=== PATIENT | male | born 1945 | race Caucasian/White ===

== ENCOUNTER 2017-06-01 14:46 | Inpatient (IN) ==
--- NOTE | 2017-05-31 22:09 | Discharge Summary ---
<ShruthiRehana morenoBreana L - Last Filed: 05/31/17 22:07> Date of Encounter: 05/31/17 - Discharge Diagnosis (1) Painful orthopaedic hardware Priority: Primary Status: Acute (2) Status post revision of total hip Priority: Primary Status: Acute (3) Hx of CABG Priority: Secondary Status: Chronic (4) COPD (chronic obstructive pulmonary disease) Priority: Secondary Status: Chronic Qualifiers: COPD type: unspecified COPD Qualified Code(s): J44.9 - Chronic obstructive pulmonary disease, unspecified (5) Anticoagulant long-term use Priority: Secondary Status: Chronic Comments: On Coumadin - Plan to bridge with Lovenox. Weight: 166lbs (6) Atrial fibrillation Priority: Secondary Status: Chronic Qualifiers: Atrial fibrillation type: chronic Qualified Code(s): I48.2 - Chronic atrial fibrillation (7) Diabetes Priority: Secondary Status: Chronic Qualifiers: Diabetes mellitus type: type 2 Diabetes mellitus complication status: without complication Diabetes mellitus watermaster insulin use: unspecified snf insulin use status Qualified Code(s): E11.9 - Type 2 diabetes mellitus without complications (8) CAD (coronary artery disease) Priority: Secondary Status: Chronic Qualifiers: Coronary Disease-Associated Artery/Lesion type: unspecified vessel or lesion type [place] vs. transplanted heart: unspecified whether [place] or transplanted heart Associated angina: without angina Qualified Code(s): I25.10 - Atherosclerotic heart disease of [place] coronary artery without angina pectoris - Discharge Medications Home Medications: Furosemide [Lasix] 20 mg PO Q48H 04/13/15 [History] GlipiZIDE [Glucotrol] 7.5 mg PO BID 04/13/15 [History] Atorvastatin [Lipitor] 10 mg PO HS 10/16/15 [History] Amiodarone [Cordarone] 200 mg PO DAILY 02/08/16 [History] Lactobacillus [Culturelle] 1 each PO DAILY 02/08/16 [History] Enoxaparin [Lovenox *PHARMACY WT BASED*] 60 mg SQ Q12HR #8 syringe 05/31/17 [Rx] Albuterol Sulfate [Albuterol Inhaler] 2 puff IH QID PRN 06/01/17 [History] Brimonidine Tartrate [Alphagan P] 1 drop BOTH EYES TID 06/01/17 [History] Cholecalciferol (Vitamin D3) [Vitamin D] 2,000 unit PO DAILY 06/01/17 [History] Enoxaparin [Lovenox] 120 mg SQ DAILY 06/01/17 [History] Furosemide [Lasix] 40 mg PO Q48H 06/01/17 [History] Ipratropium/Albuterol Neb [Duoneb] 3 ml IH QID 06/01/17 [History] Levothyroxine [Synthroid] 50 mcg PO QAM 06/01/17 [History] Losartan Potassium [Cozaar] 100 mg PO DAILY 06/01/17 [History] Metformin HCl [Glucophage] 1,000 mg PO BID 06/01/17 [History] Metoprolol Succinate 25 mg PO DAILY 06/01/17 [History] Oxycodone HCl 20 mg PO Q12H 06/01/17 [History] Pregabalin [Lyrica] 200 mg PO BID 06/01/17 [History] Sertraline [Zoloft] 100 mg PO QPM 06/01/17 [History] Warfarin [Coumadin] 2 mg PO TH 06/01/17 [History] Warfarin [Coumadin] 4 mg PO SUMOTUWEFRSA 06/01/17 [History] amLODIPine [Norvasc] 5 mg PO DAILY 06/01/17 [History] Allergies/Adverse Reactions: 3 Allergy/AdvReac Type Severity Reaction Status Date / Time azithromycin Allergy See Verified 06/01/17 16:50 Comments ceftriaxone Allergy See Verified 06/01/17 16:50 Comments morphine Allergy See Verified 06/01/17 16:50 Comments sulfamethoxazole AdvReac See Verified 06/01/17 16:50 [From Bactrim] Comments trimethoprim [From Bactrim] AdvReac See Verified 06/01/17 16:50 Comments [facility]: [facility] - Patient Status Disposition: Home, Self-Care Condition: Good - Discharge Instructions Follow Up With: [facility] [Primary Care Provider] - - Hospital Course Hospital course: Mr. Huddleston is a 72 year old male - Time Spent with Patient Total time spent providing and/or coordinating discharge services: <Andrea Cannon - Last Filed: 06/02/17 06:31> Date of Encounter: 06/02/17 Time of Encounter: 06:30 - Discharge Diagnosis (1) Atrial fibrillation with slow ventricular response Priority: Secondary Status: Chronic (2) Hx of CABG Priority: Secondary Status: Chronic (3) COPD (chronic obstructive pulmonary disease) Priority: Secondary Status: Chronic Qualifiers: COPD type: unspecified COPD Qualified Code(s): J44.9 - Chronic obstructive pulmonary disease, unspecified (4) Renal failure Priority: Secondary Status: Chronic Qualifiers: Renal failure chronicity: acute on chronic Acute renal failure type: unspecified Chronic kidney disease stage: stage 2 (mild) Qualified Code(s): N17.9 - Acute kidney failure, unspecified; N18.2 - Chronic kidney disease, stage 2 (mild); N18.2 - Chronic kidney disease, stage 2 (mild) (5) Anticoagulant long-term use Priority: Secondary Status: Chronic (6) Diabetes Priority: Secondary Status: Chronic Qualifiers: Diabetes mellitus type: type 2 Diabetes mellitus complication status: without complication Diabetes mellitus watermaster insulin use: unspecified snf insulin use status Qualified Code(s): E11.9 - Type 2 diabetes mellitus without complications (7) CAD (coronary artery disease) Priority: Secondary Status: Chronic Qualifiers: Coronary Disease-Associated Artery/Lesion type: unspecified vessel or lesion type [place] vs. transplanted heart: unspecified whether [place] or transplanted heart Associated angina: without angina Qualified Code(s): I25.10 - Atherosclerotic heart disease of [place] coronary artery without angina pectoris (8) Painful orthopaedic hardware Priority: Primary Status: Chronic Labs on day of discharge: Labs from last 24 hours 06/01/17 15:17 POC Glucose 93 H [facility] care [facility]: [facility] - Patient Status Functional capacity at discharge: uses cane/walker Overall status at discharge: patient is progressing back to baseline - Hospital Course Hospital course: Mr. Huddleston is a 72 year old male Status post removal of hardware left hip. The patient had an uneventful postoperative course. They received antibiotics and physical therapy and were discharged in stable condition. There will follow -up in the office in 2 weeks. - Time Spent with Patient Total time spent providing and/or coordinating discharge services:
--- NOTE | 2017-06-01 10:28 | Physician Discharge Referral ---
ExtendedCare Referral Info Transfer To: [place] Provider in Charge: Provider in Charge after Transfer: PCP Institutional Level of Care: Skilled - Diagnosis (1) Painful orthopaedic hardware Priority: Primary Status: Acute (2) Status post revision of total hip Priority: Primary Status: Acute (3) Hx of CABG Priority: Secondary Status: Chronic (4) COPD (chronic obstructive pulmonary disease) Priority: Secondary Status: Chronic (5) Anticoagulant long-term use Priority: Secondary Status: Chronic (6) Atrial fibrillation Priority: Secondary Status: Chronic (7) Diabetes Priority: Secondary Status: Chronic (8) CAD (coronary artery disease) Priority: Secondary Status: Chronic Expected Duration of Placement: < 30 days Prognosis: Good Aware of Diagnosis: Patient Aware of Prognosis: Patient - Transfer Medications Prescriptions: Enoxaparin [Lovenox *PHARMACY WT BASED*] 60 mg SQ Q12HR #8 syringe LORazepam [Ativan] 0.5 mg PO TID PRN #6 tablet PRN Reason: Anxiety Home Medications: Clopidogrel [Plavix] 75 mg PO HS 04/13/15 [History] Furosemide [Lasix] 20 mg PO AD 04/13/15 [History] GlipiZIDE [Glucotrol] 5 mg PO BID 04/13/15 [History] Nitroglycerin 0.4 mg SL AD PRN 04/13/15 [History] OxyCODONE ER (12 HR) [OxyCONTIN] 20 mg PO Q12HR PRN 04/13/15 [History] Atorvastatin [Lipitor] 10 mg PO HS 10/16/15 [History] Latanoprost [Xalatan] 1 drop BOTH EYES QPM 10/16/15 [History] Amiodarone [Cordarone] 100 mg PO DAILY 02/08/16 [History] Amlodipine Besylate 10 mg PO DAILY 02/08/16 [History] Guaifenesin [Suzanne-Tussin] 200 mg PO Q4H PRN 02/08/16 [History] Lactobacillus [Culturelle] 1 each PO DAILY 02/08/16 [History] Potassium Chloride [Klor-Con Sprinkle] 10 meq PO DAILY 02/08/16 [History] Terazosin HCl 2 mg PO HS 02/08/16 [History] Enoxaparin [Lovenox *PHARMACY WT BASED*] 60 mg SQ Q12HR #8 syringe 05/31/17 [Rx] LORazepam [Ativan] 0.5 mg PO TID PRN #6 tablet 05/31/17 [Rx] Allergies/Adverse Reactions: 3 Allergy/AdvReac Type Severity Reaction Status Date / Time No Known Allergies Allergy Verified 03/01/16 21:41 - Respiratory Orders None Smoking Cessation: Smoking cessation has been advised. For more information, call the [place] Tobacco Quit Line at 5-674-RUNF-NOW. - Ancillary Orders May use pressure relief devices daily prn - Mobility Orders Chair, Ambulate - Rehabiliation Orders Rehab Potential: Good Rehab Orders: ROM Exercises, Evaluation for Physical Therapy, Evaluation for Occupational Therapy - Treatments Skin tear care topically daily PRN per policy List/Other: Opsite placed. Keep dressing intact until first follow up appointment. If > 50% saturated,notify offfice, remove dressing and place appropriate dressing back in place. Dressing is water resistant, not water-proof. OK to shower, but do not get dressing wet. Kike in place, to be removed at POD#14-16. PT/OT. WBAT to affected extremity. Follow Total Hip Precautions x 6 weeks. Stay in brace at night only. Plan to discontinue brace after first post- operative appointment. ICE and elevate extremity frequently throughout the day. Encourage ambulation exercises. Incentive Spirometer 10x/hour x 1 week. Bridge back to Coumadin with Lovenox until PT/INR therapeutic - Diet Orders Regular CERTIFICATION: I certify that the transfer of the above named patient to an Extended Care Facility is necessary for the continuing treatment of the diagnosis listed. The above information is true and accurate reflection of patient's current condition. Confidential - Redisclosure prohibited without a patient's written consent.
--- NOTE | 2017-06-01 14:55 | History & Physical Report ---
Date of Encounter: 06/01/17 Time of Encounter: 14:54 24 Hour HP Update - Instructions Instructions: If the History and Physical is less than 30 days old and was completed prior to A.M. admission and or procedure and has NOT been updated on calendar day of procedure please complete this update prior to performing procedure. - Update Patient reports changes in Medical Condition: No Changes in Medication: No Preop tests/diagnostics Reviewed: Yes Surgery Remains Indicated: Yes Consent for Planned Operative Procedure(s) Verified: Yes - Pre-Operative Checklist Preoperative Checklist Indicated: No Prophylactic Antibiotic Ordered: Yes Is VTE Prophylaxis Indicated?: Yes
[2017-06-01] MEDS ORDERED: Vancomycin 1,250 MG in D5% in Water 250 ML IVPB ONE (15:06)
[2017-06-01] MEDS ORDERED: Lidocaine -MPF 1% 2 ML VIAL ID ONE (15:06)
[2017-06-01] MEDS ORDERED: Albuterol 2.5 MG/3 ML NEBULIZER IH ONE (15:06)
[2017-06-01] MEDS ORDERED: Ethanol\\Acetic Acid\\Na Ace\\Ben 1,000 ML IRRIG.SOLN IR ONE (15:07)
[2017-06-01] MEDS ORDERED: Ringers Solution, Lactated 1,000 ML IVC SCH ×2 (15:15→18:27)
--- NOTE | 2017-06-01 15:22 | Anesthesia Evaluation PreOp ---
Date of Encounter: 06/01/17 Time of Encounter: 15:20 - Past History Planned Operation: Left Total Hip Arthropasty, Removal of part of plate Cardiac History: [place] (2011), CHF, HTN, Hyperlipidemia, Cardiac Surgery (CABG x 2 2011), Pacemaker/ICD (Pacemaker 02/13, Interogated 06/01/2017), Other (Carotid Stenosis, Hx DVT) Pulmonary History: Former smoker MEDICAL LEAD History: Denies Any Significant HX Other Medical History: Diabetes Type II Anesthesia History: No Prior Anesthetic Complications, Past Anesthesia (Back sx , Left THR, Left Fem. Art. Bypass,) Alcohol Use: none Drug use: none Medications and Allergies Clopidogrel [Plavix] 75 mg PO HS 04/13/15 [History] Furosemide [Lasix] 20 mg PO AD 04/13/15 [History] GlipiZIDE [Glucotrol] 5 mg PO BID 04/13/15 [History] Nitroglycerin 0.4 mg SL AD PRN 04/13/15 [History] OxyCODONE ER (12 HR) [OxyCONTIN] 20 mg PO Q12HR PRN 04/13/15 [History] Atorvastatin [Lipitor] 10 mg PO HS 10/16/15 [History] Latanoprost [Xalatan] 1 drop BOTH EYES QPM 10/16/15 [History] Amiodarone [Cordarone] 100 mg PO DAILY 02/08/16 [History] Amlodipine Besylate 10 mg PO DAILY 02/08/16 [History] Guaifenesin [Suzanne-Tussin] 200 mg PO Q4H PRN 02/08/16 [History] Lactobacillus [Culturelle] 1 each PO DAILY 02/08/16 [History] Potassium Chloride [Klor-Con Sprinkle] 10 meq PO DAILY 02/08/16 [History] Terazosin HCl 2 mg PO HS 02/08/16 [History] Enoxaparin [Lovenox *PHARMACY WT BASED*] 60 mg SQ Q12HR #8 syringe 05/31/17 [Rx] LORazepam [Ativan] 0.5 mg PO TID PRN #6 tablet 05/31/17 [Rx] 3 Allergy/AdvReac Type Severity Reaction Status Date / Time No Known Allergies Allergy Verified 03/01/16 21:41 - Meds/Allergy Pre-op Review Medications Reviewed: Yes Allergies Reviewed: Yes Beta Blockers on Current Med List: No Anesthesia Results - Labs Laboratory Tests 03/01/16 05/26/17 05/26/17 22:20 14:05 14:05 WBC 8.4 Hgb 12.8 L Hct 39.5 Plt Count 181 INR 1.7 Sodium Potassium Chloride Carbon Dioxide BUN Creatinine 1.10 05/26/17 14:05 WBC Hgb Hct Plt Count INR Sodium 136 Potassium 3.8 Chloride 101 Carbon Dioxide 26 BUN 19 Creatinine 12/15/16 Echo Normal EF - 61% pHTN LVH - Imaging EKG: image reviewed (Atrial Paced) Anesthesia Exam O2 Sat Height 1.71 m Height 1.71 m Weight 77.111 kg Weight 77.111 kg O2 Sat by Pulse Oximetry 96 O2 Sat by Pulse Oximetry 96 Vital Signs Temp Pulse Resp BP Pulse Ox 97.7 F 65 18 151/83 96 06/01/17 15:33 06/01/17 15:33 06/01/17 15:33 06/01/17 15:33 06/01/17 15:33 Height: 5'7'' Weight: 170# NPO (# of Hours): > 8 hrs Pain Scale: 0 Pain Scale Used: Numeric (1 - 10) - HEENT Pupil (Motor): Pupils equal, EOMI Mallampati: II Teeth: Edentulous Oral Opening: Greater than 3 - MEDICAL LEAD LOC: Oriented MEDICAL LEAD Motor: Normal RUE, Normal LUE, Normal RLE, Normal LLE, Normal Face MEDICAL LEAD Sensory: Normal: RUE, LUE, RLE, LLE, Face - Cardiac Rhythm: Regular (Atrial Paced) Murmur: None JVD: No Carotid Bruit: No - Pulmonary Breath Sounds: bilateral Clear Respiratory Effort: Symmetrical Anesthesia Assess/Plan ASA Score: 4 Modified [place] Scale for Level of Consciousness: Cooperative, oriented, and tranquil Anesthetic Plan: General, Regional (Left Facia Iliaca Block) Autologous Blood: Yes Monitoring Plan: Standard Monitors Recovery Plan: PACU
[2017-06-01] MEDS ORDERED: *HR* FentaNYL (PF) 100 MCG/2 ML VIAL ONE (15:39)
[2017-06-01] MEDS ORDERED: Bupivacaine/Clonidine Syringe 1 EACH SYRINGE ONE (15:39)
[2017-06-01] MEDS ORDERED: Acetaminophen IV 1,000 MG/100 ML INFUS..BTL ONE (15:39)
[2017-06-01] MEDS ORDERED: *HR* Midazolam HCl 2 MG/2 ML VIAL ONE (15:41)
[2017-06-01] MEDS ORDERED: *HR* Propofol 200 MG/20 ML VIAL IVP ONE (15:41)
[2017-06-01] MEDS ORDERED: Lidocaine -MPF 2% 2 ML VIAL ONE (15:41)
[2017-06-01] MEDS ORDERED: Ketamine *HR* 500 MG/10 ML MDV ONE (15:42)
--- NOTE | 2017-06-01 16:17 | Anesthesia Procedures ---
Date of Encounter: 06/01/17 Time of Encounter: 16:16 Procedures: Anesthesia - Nerve Block Procedure Date: 06/01/17 Time: 16:16 Allergies/Adv Reactions: nka Surgical Procedure: left hip revision Checklist: Correct Patient Identifier, Correct procedure, History checked Correct side: Left Blood Thinner: No Monitor Applied: EKG, BP, Pulse Oximetry Supplemental Oxygen via Nasal Cannula (L/min): 2 Sedation: Versed (mg): 2 Sedation: Fentanyl (mcg): 100 Indication: Post Op Analgesia Pre-op Neuro Deficits: No Block Type: Other (fascia iliaca) Catheter placed: No Sterile Technique: Yes Ultrasound used: Yes Anatomy identified: Yes Visual spread of Local: Yes Neuro Stimulation: No Blood on Needle Aspiration: No Smooth Injection of Local: Yes Pain with Injection of Local: No Prep: Chlorhexadine Needle: 22 x 50 mm Stimuplex Local: 0.25% Bupivicaine w/Clonidine 20 mcg/cc Volume (cc): 60 Number of Attempts: 1 Complications: None/effective block Vitals: Vital Signs/O2 Sat/Glucose, Most Recent Temp Pulse Resp BP Pulse Ox 97.7 F 60 18 138/73 97 06/01/17 15:33 06/01/17 16:00 06/01/17 16:00 06/01/17 16:00 06/01/17 16:00 Blood Glucose* 93
[2017-06-01] MEDS ORDERED: *HR* Succinylcholine 200 MG/10 ML VIAL IVP ONE (16:23)
[2017-06-01] MEDS ORDERED: Lidocaine -MPF 4% 5 ML AMPUL ONE (16:24)
[2017-06-01] MEDS ORDERED: *HR* Magnesium Sulfate 1 GM/2 ML VIAL ONE (16:41)
[2017-06-01] MEDS ORDERED: Dexamethasone 4 MG/ML VIAL ONE (16:44)
[2017-06-01] MEDS ORDERED: Ondansetron 4 MG/2 ML VIAL ONE (16:44)
[2017-06-01] MEDS ORDERED: Ketorolac 30 MG/ML VIAL ONE (17:07)
[2017-06-01] MEDS ORDERED: Ondansetron 4 MG/2 ML VIAL IVP PRN ×2 (17:09→18:27)
[2017-06-01] MEDS ORDERED: *HR* HYDROmorphone (PF) 1 MG/ML SYRINGE IVP PRN ×2 (17:09→18:27)
--- NOTE | 2017-06-01 17:23 | Orthopedic Operative Note ---
Date of procedure: 06/01/17 Pre-op diagnosis: Painful hardware left hip, possible aseptic loosening femoral component Post-op diagnosis: same (No loosening of femoral component) Procedure: Procedure: Left hip removal of hardware, hip arthrotomy exploration. Estimated blood loss: 200 cc No new hardware Procedural Notes: Patient had a proud proximal portion of a lateral femoral plate and concerns based on his history and physical of loosening of the femoral stem. Patient had the proximal portion of the plate cut hip was dislocated femur was well fixed. No abnormal wear of the acetabular socket. Stable after reduction. Operative procedure: The patient was brought to the operating room and placed on the operating room table. After general anesthesia was administered the patient was placed in the lateral decubitus position with the operative leg up. All pressure points were padded appropriately and the head was stabilized in the neutral position. The operative extremity was prepped and draped in the sterile surgical fashion patient received IV antibiotic prior to skin incision. A standard posterior approach is made to the operative hip, the incision was made through the skin and subcutaneous tissue hemostasis was obtained with Bovie cautery. It incorporated the distal portion of his incision which was used for his open reduction internal fixation. Using careful sharp dissection the plate was easily identified. Q2 cables were removed as well as 2 screws. The proximal portion of the plate was cut just at the level of one of the proximal screw holes. This helped remove the inciting portion of the plate was causing lateral sided hip pain. Cultures were obtained. Attention was then turned to exposure of the hip. A posterior approach was performed, the external rotators were identified and released off the greater trochanter. Cultures were obtained. The hip was dislocated. The femoral head was removed. Proximal dissection was performed around the femoral stem osteotomes were used to fit the proximal portion. An extraction device was used and was unsuccessful in removing the hip. The hip was well fixed. Examination of the acetabulum revealed no abnormal wear of the acetabular component. The patient's femoral head was really applied impacted in place had good fixation hip was reduced, The hip had excellent stability with forward flexion to 90 degrees adduction of 30 degrees and internal rotation of 60 degrees. The hip had no shuck. The hips after 2 minutes with a Betadine saline solution. It was irrigated out with 2 L of pulse irrigation. The PA close the hip. Fascia was closed with a running #2 PDS suture. The deep tissue was irrigated and closed deep with #1 PDS suture superficially with 0 PDS suture and skin was closed with Dermabond and skin anahi. The patient was placed in a sterile dressing and abduction pillow. The patient was extubated and transferred to the recovery room in stable condition. Anesthesia: GETA Surgeon: Andrea Cannon Condition: stable Disposition: PACU
[2017-06-01] MEDS ORDERED: *HR* Enoxaparin 30 MG/0.3 ML SYRINGE SQ SCH (18:00)
--- NOTE | 2017-06-01 18:16 | Anesthesia Evaluation Post Op ---
Date of Encounter: 06/01/17 Time of Encounter: 18:15 - Vital Signs Vital Signs: Selected Entries 06/01/17 17:53 06/01/17 18:13 Temperature 97.1 F L Pulse Rate 60 Respiratory Rate 14 Blood Pressure 131/73 O2 Sat by Pulse Oximetry 97 - Lungs Lungs: Clear Ascult./Percussion - Airway Airway: Non-obstructed - Cardiovascular Regular Rate - Mental Status Mental Status: Alert & Oriented, Answers Appropriately - Pain Pain Scale: 0 Pain Scale used: Numeric (1 - 10) - Nausea Vomiting Nausea Vomiting: Not Present - Hydration Hydration: Ice chips, Has not voided - Discharge PostOp Status: Transfer Patient to floor
[2017-06-01] MEDS ORDERED: Insulin LISPRO 300 UNITS/3 ML VIAL SQ SCH ×2 (18:27→21:00)
[2017-06-01] MEDS ORDERED: MOM Conc 10 ML UD.LIQ PO PRN (18:27)
[2017-06-01] MEDS ORDERED: *HR* Dextrose 50 % in Water (Syg) 50 ML SYRINGE IVP PRN (18:27)
[2017-06-01] MEDS ORDERED: D5% in Water 1,000 ML IVC PRN (18:27)
[2017-06-01] MEDS ORDERED: Naloxone 0.4 MG/ML INJ IVP PRN (18:27)
[2017-06-01] MEDS ORDERED: *HR* OxyCODONE Immed Rel 5 MG TABLET PO PRN ×2 (18:27)
[2017-06-01] MEDS ORDERED: Dextrose Gel 15 GM PO PRN ×2 (18:27)
[2017-06-01] MEDS ORDERED: Temazepam 15 MG CAPSULE PO PRN (18:27)
[2017-06-01] MEDS ORDERED: Sennosides 8.6 MG TABLET PO PRN (18:27)
[2017-06-01] MEDS ORDERED: *HR* Dextrose 50 % in Water (Syg) 50 ML SYRINGE ONE (18:31)
[2017-06-01 19:06] LABS: Hematocrit 33.4 % (37.5-50.1)
[2017-06-01] MEDS: Ascorbic Acid 500 MG TABLET PO SCH (20:39)
[2017-06-02] MEDS ORDERED: ceFAZolin 2,000 MG in D5% in Water 100 ML IVPB SCH
[2017-06-02] MEDS ORDERED: Vancomycin 1,250 MG in D5% in Water 250 ML IVPB SCH (00:01)
[2017-06-02] MEDS ORDERED: *HR* Enoxaparin 30 MG/0.3 ML SYRINGE SQ SCH (06:00)
--- NOTE | 2017-06-02 06:32 | Orthopedics Progress Note ---
Date of Encounter: 06/02/17 Time of Encounter: 06:31 - Assessment and Plan (1) Atrial fibrillation with slow ventricular response Current Visit: No Status: Chronic (2) Hx of CABG Current Visit: No Status: Chronic (3) COPD (chronic obstructive pulmonary disease) Current Visit: No Status: Chronic Qualifiers: COPD type: unspecified COPD Qualified Code(s): J44.9 - Chronic obstructive pulmonary disease, unspecified (4) Renal failure Current Visit: No Status: Chronic Qualifiers: Renal failure chronicity: acute on chronic Acute renal failure type: unspecified Chronic kidney disease stage: stage 2 (mild) Qualified Code(s): N17.9 - Acute kidney failure, unspecified; N18.2 - Chronic kidney disease, stage 2 (mild); N18.2 - Chronic kidney disease, stage 2 (mild) (5) Anticoagulant long-term use Current Visit: No Status: Chronic (6) Diabetes Current Visit: No Status: Chronic Qualifiers: Diabetes mellitus type: type 2 Diabetes mellitus complication status: without complication Diabetes mellitus locker attendant insulin use: unspecified custodial insulin use status Qualified Code(s): E11.9 - Type 2 diabetes mellitus without complications (7) CAD (coronary artery disease) Current Visit: No Status: Chronic Qualifiers: Coronary Disease-Associated Artery/Lesion type: unspecified vessel or lesion type [place] vs. transplanted heart: unspecified whether [place] or transplanted heart Associated angina: without angina Qualified Code(s): I25.10 - Atherosclerotic heart disease of [place] coronary artery without angina pectoris (8) Painful orthopaedic hardware Current Visit: No Status: Chronic Subjective Interval history: Patient was seen this morning doing well without complaints. Afebrile vital signs stable. Operative extremity: Neurovascularly intact Dressing clean dry and intact Calves nontender Assessment and plan: Continue with postoperative care Hematocrit 33 discharged today Objective Vital signs: Vital Signs Temp Pulse Resp BP Pulse Ox 06/02/17 04:23 98.3 F 60 15 158/82 95 06/02/17 00:13 97.6 F 62 15 99/55 96 06/01/17 21:54 96.0 F L 60 10 97/57 97 06/01/17 20:19 97.5 F L 60 16 100/63 94 06/01/17 19:53 95.8 F L 06/01/17 19:37 60 12 118/67 95 06/01/17 19:01 65 18 110/57 92 06/01/17 18:38 97.4 F L 62 18 113/59 98 06/01/17 18:23 97.8 F 59 16 131/70 96 06/01/17 18:13 60 14 131/73 97 06/01/17 18:03 60 16 127/69 94 06/01/17 17:53 97.1 F L 60 16 116/64 96 06/01/17 16:00 60 18 138/73 97 06/01/17 15:33 97.7 F 65 18 151/83 96 Intake and Output 06/01/17 06/01/17 06/02/17 15:59 23:59 07:59 Output Total 200 / 200 425 / 425 Balance -200 / -200 -425 / -425 Output: Urine 0 / 0 425 / 425 Estimated Blood Loss 200 / 200 Other: Weight 77.111 kg Blood Glucose* 93 141 - Labs CBC & BMP: 06/01/17 18:33 Labs: Abnormal lab results Hgb 11.0 g/dL (12.9-16.9) L D 06/01/17 18:33 Hct 33.4 % (37.5-50.1) L 06/01/17 18:33 POC Glucose 141 (58-89) H 06/01/17 18:50 - VTE Documentation of Mechanical Device: Venous foot pump, device Consult Discharge Plan - Plan [facility]errals: [facility] [Primary Care Provider] -
[2017-06-02 06:39] LABS: BUN/Creatinine Ratio 18 (6-26); Blood Urea Nitrogen 23 mg/dL (8-26); Calcium 8.1 mg/dL (8.6-10.8); Carbon Dioxide 22 mEq/L (19-29); Chloride 101 mEq/L (98-109); Glucose 427 mg/dL (70-99); Osmolality,Calculated 292 (280-300); Potassium 4.8 mEq/L (3.5-4.5); Sodium 130 mEq/L (136-145); eGFR For African Americans > 60 (> 60); eGFR For Non-African Americans 55 (> 60)
[2017-06-02 06:57] LABS: Hematocrit 27.9 % (37.5-50.1)
[2017-06-02 07:04] LABS: Hemoglobin 9.3 g/dL (12.9-16.9)
[2017-06-02 07:11] VITALS: BP 127/65
[2017-06-02] MEDS: Ascorbic Acid 500 MG TABLET PO SCH (08:12)
[2017-06-02] MEDS ORDERED: Multivit/Ca/Min/Fe/FA 1 TAB TABLET PO SCH (09:00)
--- NOTE | 2017-06-02 11:36 | Event Note ---
Date of Encounter: 06/02/17 Time of Encounter: 11:34 Left hip removal of hardware, hip arthrotomy exploration. 06/01/17 GRAM stain negative PCR - POD#.1 Comorbidities: Painful hardware, DMii, HTN, CAD, Pacemaker, Anticoagulated with Coumadin, Chronic pain Labs: 05/26 - H/H 9.11/24 - Type and Cross today Patient discharged during PCR. Pain control: Chronic Pain - Takes Oxycontin 20mg BID, plan to continue this post-op Participating in PT per notes. All questions and concerns addressed. Educated on use of incentive spirometer, ambulation, and hydration. Patient educated on post-operative restrictions and care by Nurse navigator Addressed: Coumadin Bridge* Lovenox Weight based RX printed - Repeat PT/INR D/C plan: home today -
[2017-06-02 12:00] LABS: INR 1.2; Prothrombin Time 12.6 Seconds (9.4-12.1)
--- NOTE | 2017-06-02 15:28 | Physician Discharge Referral ---
Home Health/Hosp Referral Info Transfer to: Home Health Attending Provider: Provider in Charge Post Discharge: PCP - Diagnosis (1) Painful orthopaedic hardware Priority: Primary Status: Chronic (2) Status post revision of total hip Priority: Primary Status: Acute (3) Hx of CABG Priority: Secondary Status: Chronic (4) COPD (chronic obstructive pulmonary disease) Priority: Secondary Status: Chronic (5) Anticoagulant long-term use Priority: Secondary Status: Chronic (6) Atrial fibrillation Priority: Secondary Status: Chronic (7) Diabetes Priority: Secondary Status: Chronic (8) CAD (coronary artery disease) Priority: Secondary Status: Chronic - Respiratory Orders None Smoking Cessation: Smoking cessation has been advised. For more information, call the [employer] Tobacco Quit Line at 6-672-GRWZ-NOW. - Diet/Nutrition Diet/Nutrition Orders: Regular - Activity Activity Orders: Up ad corbin, Ambulate - Services Needed Following services are medically necessary services: Nursing, Home Health Aide, Physical Therapy, Occupational Therapy Home Care Orders: Opsite dressing, leave intact until first post-operative visit. If dressing becomes >50% saturated, contact office, remove dressing and place appropriate dressing in its place. Do not allow for dressing to get wet. Kike in place, plan to remove at post-operative day #14-16. Total Joint Precautions x 6 weeks Apply cold therapy wrap 3-6x/day for 20 minutes at a time. Encourage ambulation throughout the day Use Incentive spirometer 10x/hour. Elevate affected extremity above heart as tolerated. Other Treatments: Labs: PT/INR 06/03/17 - coumadin bridging until PT/INR therapeutic - Transfer Medications Home Medications: Furosemide [Lasix] 20 mg PO Q48H 04/13/15 [History] GlipiZIDE [Glucotrol] 7.5 mg PO BID 04/13/15 [History] Atorvastatin [Lipitor] 10 mg PO HS 10/16/15 [History] Amiodarone [Cordarone] 200 mg PO DAILY 02/08/16 [History] Lactobacillus [Culturelle] 1 each PO DAILY 02/08/16 [History] Enoxaparin [Lovenox *PHARMACY WT BASED*] 60 mg SQ Q12HR #8 syringe 05/31/17 [Rx] Albuterol Sulfate [Albuterol Inhaler] 2 puff IH QID PRN 06/01/17 [History] Brimonidine Tartrate [Alphagan P] 1 drop BOTH EYES TID 06/01/17 [History] Cholecalciferol (Vitamin D3) [Vitamin D] 2,000 unit PO DAILY 06/01/17 [History] Enoxaparin [Lovenox] 120 mg SQ DAILY 06/01/17 [History] Furosemide [Lasix] 40 mg PO Q48H 06/01/17 [History] Ipratropium/Albuterol Neb [Duoneb] 3 ml IH QID 06/01/17 [History] Levothyroxine [Synthroid] 50 mcg PO QAM 06/01/17 [History] Losartan Potassium [Cozaar] 100 mg PO DAILY 06/01/17 [History] Metformin HCl [Glucophage] 1,000 mg PO BID 06/01/17 [History] Metoprolol Succinate 25 mg PO DAILY 06/01/17 [History] Oxycodone HCl 20 mg PO Q12H 06/01/17 [History] Pregabalin [Lyrica] 200 mg PO BID 06/01/17 [History] Sertraline [Zoloft] 100 mg PO QPM 06/01/17 [History] Warfarin [Coumadin] 2 mg PO TH 06/01/17 [History] Warfarin [Coumadin] 4 mg PO SUMOTUWEFRSA 06/01/17 [History] amLODIPine [Norvasc] 5 mg PO DAILY 06/01/17 [History] Allergies/Adverse Reactions: 3 Allergy/AdvReac Type Severity Reaction Status Date / Time azithromycin Allergy See Verified 06/01/17 16:50 Comments ceftriaxone Allergy See Verified 06/01/17 16:50 Comments morphine Allergy See Verified 06/01/17 16:50 Comments sulfamethoxazole AdvReac See Verified 06/01/17 16:50 [From Bactrim] Comments trimethoprim [From Bactrim] AdvReac See Verified 06/01/17 16:50 Comments Certification: Further, I certify that my clinical findings support that this patient is homebound (i.e. absences from home require considerable and taxing effort and are for medical reasons or [facility] services or infrequently or short duration when for other reasons) because: Homebound Reason: Post-surgery restriction and or conditions limit ability to leave home Attestation: My signature below is to certify that this patient is under my care and that I, or nurse practitioner, or a physician's assistant curator working with me, has a face-to -face encounter with this patient.
--- NOTE | 2017-06-02 17:30 | Electrocardiograph Report ---
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
== END 2017-06-02 13:10 | disposition home or self-care (01) | DRG 481 ==
LOC: SAMDAY 14:46 → 3NENU 18:27
PROVIDERS: ADMIT Orthopaedic Surgery; ATTEND Orthopaedic Surgery

== ENCOUNTER 2017-06-03 12:55 | Inpatient (IN) ==
[~2017-06-03 12:55] MED LIST: Aminoglycoside Consult 1 EACH MC ONE
--- NOTE | 2017-06-03 13:18 | Emergency Department Note ---
Disposition Clinical Impression: Weakness, Near syncope, Dislocation of internal left hip prosthesis, initial encounter, Hypoxia Disposition: Admitted As Inpatient Condition: Undetermined [facility]errals: [facility]Primary Care Provider[facility] - Forms: ED Satisfaction Letter Time of Disposition: 15:31 General Adult HPI - General Chief complaint: ED Fall Stated complaint: fall Time Seen by Provider: 06/03/17 12:57 Source: patient, family, EMS Mode of arrival: EMS Limitations: no limitations Nursing Notes Reviewed: Yes Vital Signs Reviewed: Yes - History of Present Illness HPI Narrative: 72-year-old male with recent history of hip replacement and removal of partial aspect of ride in left hip and femur. The patient has an extensive history of surgeries to the left lower extremity associated with this. The patient states that he also has a history of PE and DVT. The patient is on warfarin therapy. The patient arrives into the emergency department complaining of generalized weakness and a near syncopal episode about one day ago while the patient was stating up in the kitchen at his house. The patient states he slid down While holding onto a chair. The patient had no loss of consciousness. Patient denies any other complaints at this time. The patient was noted to be mildly hypoxic with an O2 sat of 86% on room air which is unusual for him. Onset (ago): day(s) (1) Location: left, lower extremity Radiation: non-radiation Pain Severity: moderate, severe Pain Scale: 9 Quality: stabbing, aching Consistency: constant Improves with: nothing Worsens with: nothing Associated symptoms: Reports: shortness of breath Treatments Prior to Arrival: none - Related Data Home Medications Medication Instructions Recorded Confirmed Furosemide [Lasix] 20 mg PO Q48H 04/13/15 06/01/17 GlipiZIDE [Glucotrol] 7.5 mg PO BID 04/13/15 06/01/17 Atorvastatin [Lipitor] 10 mg PO HS 10/16/15 06/01/17 Amiodarone [Cordarone] 200 mg PO DAILY 02/08/16 06/01/17 Lactobacillus [Culturelle] 1 each PO DAILY 02/08/16 06/01/17 Albuterol Sulfate [Albuterol 2 puff IH QID PRN 06/01/17 06/01/17 Inhaler] Brimonidine Tartrate [Alphagan P] 1 drop BOTH EYES TID 06/01/17 06/01/17 Cholecalciferol (Vitamin D3) 2,000 unit PO DAILY 06/01/17 06/01/17 [Vitamin D] Enoxaparin [Lovenox] 120 mg SQ DAILY 06/01/17 06/01/17 Furosemide [Lasix] 40 mg PO Q48H 06/01/17 06/01/17 Ipratropium/Albuterol Neb [Duoneb] 3 ml IH QID 06/01/17 06/01/17 Levothyroxine [Synthroid] 50 mcg PO QAM 06/01/17 06/01/17 Losartan Potassium [Cozaar] 100 mg PO DAILY 06/01/17 06/01/17 Metformin HCl [Glucophage] 1,000 mg PO BID 06/01/17 06/01/17 Metoprolol Succinate 25 mg PO DAILY 06/01/17 06/01/17 Oxycodone HCl 20 mg PO Q12H 06/01/17 06/01/17 Pregabalin [Lyrica] 200 mg PO BID 06/01/17 06/01/17 Sertraline [Zoloft] 100 mg PO QPM 06/01/17 06/01/17 Warfarin [Coumadin] 2 mg PO TH 06/01/17 06/01/17 Warfarin [Coumadin] 4 mg PO SUMOTUWEFRSA 06/01/17 06/01/17 amLODIPine [Norvasc] 5 mg PO DAILY 06/01/17 06/01/17 Previous Rx's Medication Instructions Recorded Enoxaparin [Lovenox *PHARMACY WT 60 mg SQ Q12HR #8 syringe 05/31/17 BASED*] Allergies Allergy/AdvReac Type Severity Reaction Status Date / Time azithromycin Allergy See Verified 06/01/17 16:50 Comments ceftriaxone Allergy See Verified 06/01/17 16:50 Comments morphine Allergy See Verified 06/01/17 16:50 Comments sulfamethoxazole AdvReac See Verified 06/01/17 16:50 [From Bactrim] Comments trimethoprim [From Bactrim] AdvReac See Verified 06/01/17 16:50 Comments All systems ED: reviewed and negative except as stated. Constitutional: Reports: weakness. Denies: fever, chills Eyes: Denies: eye pain ENT ED: Denies: ear pain, throat pain Cardiovascular: Denies: chest pain, dyspnea on exertion Respiratory: Reports: dyspnea. Denies: cough, wheezes, sputum production Gastrointestinal: Denies: abdominal pain, nausea, vomiting Genitourinary: Denies: urgency, dysuria Musculoskeletal: Reports: arthralgia, myalgia. Denies: back pain, neck pain Integumentary: Reports: other (Wound to left lower extremity). Denies: rash Neurological: Denies: headache, weakness, numbness, paresthesias Past Medical History - Past Medical History Attestation: Yes The following information was validated with the patient. Source: patient, old records reviewed Medical history: Reports: atrial fibrillation, CHF, COPD, coronary artery disease, CVA, DVT, diabetes, GERD, hypertension, myocardial infarction, syncope , other Surgical history: Reports: appendectomy, carotid endarterectomy, coronary bypass (CABG), hip replacement, LE stent(s), vascular surgery, pacemaker Psychiatric history: Reports: anxiety, PTSD - Social History Smoking Status: Former smoker Smokeless Tobacco Status: No Alcohol use: Reports: none Drug use: Reports: none Physical Exam - General Limitations: no limitations General appearance: alert, in no apparent distress - Head Head exam: atraumatic, normocephalic, normal inspection - Eye Eye exam: Present: normal appearance, PERRL, EOMI - ENT ENT exam: normal exam, normal oropharynx, mucous membranes moist - Neck Neck exam: Present: normal inspection, full ROM, trachea midline - Chest Chest inspection: Present: normal inspection, symmetric chest wall rise - Respiratory Respiratory exam: Present: normal lung sounds bilaterally - Cardiovascular Cardiovascular exam: Present: regular rate, normal rhythm, normal heart sounds - Abdominal Exam Abdominal exam: Present: soft, Non-Tender. Absent: tenderness, distention, guarding, rebound, rigidity - Extremities Exam Extremities exam: Present: full ROM (Limited by pain), tenderness, other (The patient has a left hip wound that is intact from surgery 3 days ago.) Course - Reevaluation(s) Reevaluation #1: He should mildly hypoxic on room air at 86%. The patient does have a dislocation of his prosthetic hip on the left. We do not currently feel comfortable sedating this patient at this time due to the patient's hypoxia without any etiology known. Chest x-ray is clear. We will perform a CTA of the patient's chest with concern for PE. Patient made aware and agrees to plan. We spoke with Dr. Cannon as well as Dr. Cespedes in orthopedic surgery to make them aware. Time: 14:02 Reevaluation #2: Hypertension acutely became more somnolent. He was given one 0.4 mg dose of Narcan which immediately pulled patient out of his somnolence. The patient denies taking any medications here but I question because he acutely changed. The patient is alert and oriented at this time and easily arousable. Time: 15:51 Vital Signs Temperature 97.7 F 06/03/17 12:57 Pulse Rate 61 06/03/17 12:57 Respiratory Rate 8 06/03/17 12:57 Blood Pressure 100/73 06/03/17 12:57 O2 Sat by Pulse Oximetry 92 06/03/17 12:57 Temperature 97.7 F 06/03/17 12:57 Pulse Rate 61 06/03/17 15:07 Respiratory Rate 18 06/03/17 15:07 Blood Pressure 80/47 06/03/17 15:07 O2 Sat by Pulse Oximetry 92 06/03/17 15:07 Oxygen Delivery Oxygen Delivery Nasal Cannula Medical Decision Making - [facility] Narrative Medical decision making narrative: Patient noted to have a dislocation of prosthetic hip on the left. Given the patient's hypoxia I was concerned about performing a reduction here in the emergency department and spoke with Dr. Cannon in orthopedics surgery who agreed to take the patient to the OR tomorrow. He requested admission to the hospitalist service at this time. Patient's CT scan demonstrates no pulmonary embolus. We will admit to the hospitalist, accepted by Dr. Garza. - Lab Data Lab results reviewed: Yes I reviewed the patient's lab results. Result diagrams: 06/03/17 13:16 06/03/17 13:16 Lab Results 06/03/17 06/03/17 06/03/17 Range/Units 13:16 13:16 13:16 WBC 12.0 H (4.3-11.1) K/mcL RBC 2.78 L (4.19-5.50) M/mcL Hgb 8.3 L (12.9-16.9) g/dL Hct 25.8 L (37.5-50.1) % MCV 92.8 (83.0-100.0) fL MCH 29.9 (28.0-33.3) pg MCHC 32.2 (31.6-35.5) g/dL RDW 16.4 H (11.5-14.5) % Plt Count 111 L (140-400) K/mcL MPV 10.1 (9.4-12.4) fL Immature Gran % 1.2 (0-4) % Seg Neutrophils % 75.3 % Lymphocytes % 10.2 % Monocytes % 11.9 % Eosinophils % 1.2 % Basophils % 0.2 % Neutrophils # 9.0 H (1.6-8.9) K/mcL Lymphocytes # 1.2 (0.6-4.6) K/mcL Monocytes # 1.4 H (0.0-1.3) K/mcL Eosinophils # 0.2 (0.0-0.6) K/mcL Basophils # 0.0 (0.0-0.2) K/mcL PT (9.4-12.1) Seconds INR APTT (26.0-36.0) Seconds ABG pH (7.32-7.45) pH Units ABG pCO2 (35-45) mmHg ABG pO2 (85-104) mmHg ABG HCO3 (21-27) mEq/L ABG Total CO2 (20-26) mEq/L ABG O2 Saturation (95-98) % ABG Base Excess (-2 to 3) mEq/L Sodium 134 L (136-145) mEq/L Potassium 3.9 (3.5-4.5) mEq/L Chloride 105 (98-109) mEq/L Carbon Dioxide 20 (19-29) mEq/L BUN 27 H (8-26) mg/dL Creatinine 1.36 H (0.72-1.25) mg/dL Est GFR ( Amer) > 60 (> 60) Est GFR (Non-Af Amer) 52 L (> 60) BUN/Creatinine Ratio 20 (6-26) Glucose 180 H (70-99) mg/dL POC Glucose (58-89) Calculated Osmolality 288 (280-300) Calcium 7.6 L (8.6-10.8) mg/dL Magnesium 1.8 (1.6-2.6) mg/dL Troponin I 0.04 H* (0-0.03) ng/mL 06/03/17 06/03/17 06/03/17 Range/Units 13:17 14:30 15:22 WBC (4.3-11.1) K/mcL RBC (4.19-5.50) M/mcL Hgb (12.9-16.9) g/dL Hct (37.5-50.1) % MCV (83.0-100.0) fL MCH (28.0-33.3) pg MCHC (31.6-35.5) g/dL RDW (11.5-14.5) % Plt Count (140-400) K/mcL MPV (9.4-12.4) fL Immature Gran % (0-4) % Seg Neutrophils % % Lymphocytes % % Monocytes % % Eosinophils % % Basophils % % Neutrophils # (1.6-8.9) K/mcL Lymphocytes # (0.6-4.6) K/mcL Monocytes # (0.0-1.3) K/mcL Eosinophils # (0.0-0.6) K/mcL Basophils # (0.0-0.2) K/mcL PT 13.0 H (9.4-12.1) Seconds INR 1.2 APTT 35.3 (26.0-36.0) Seconds ABG pH 7.26 L (7.32-7.45) pH Units ABG pCO2 44 (35-45) mmHg ABG pO2 73 L (85-104) mmHg ABG HCO3 20 L (21-27) mEq/L ABG Total CO2 21 (20-26) mEq/L ABG O2 Saturation 92 L (95-98) % ABG Base Excess -7 L (-2 to 3) mEq/L Sodium (136-145) mEq/L Potassium (3.5-4.5) mEq/L Chloride (98-109) mEq/L Carbon Dioxide (19-29) mEq/L BUN (8-26) mg/dL Creatinine (0.72-1.25) mg/dL Est GFR ( Amer) (> 60) Est GFR (Non-Af Amer) (> 60) BUN/Creatinine Ratio (6-26) Glucose (70-99) mg/dL POC Glucose 142 H (58-89) Calculated Osmolality (280-300) Calcium (8.6-10.8) mg/dL Magnesium (1.6-2.6) mg/dL Troponin I (0-0.03) ng/mL - Radiology Data Radiology results reviewed: Yes I reviewed the patient's radiology results. - EKG Data EKG #1 EKG attestation: Yes I reviewed and interpreted this EKG. EKG results narrative: Heart rate 63 bpm. OK interval 360 ms. Normal axis. Normal sinus rhythm. Electronic atrial pacemaker. Right bundle-branch block. EKG similar in appearance to EKG from 06/01/2017. No acute changes noted. Attestation Statement - Attestation Attestation: I examined this patient and my medical decision-making was reviewed with the Resident Physician. I agree with the documented findings, disposition and treatment plan as described except to the extent set forth below. Patient to the ED with weakness. Multiple falls. Patient had a recent revision to his left hip prosthesis. On examination she is awake and alert. Tenderness to the left hip area. Unable move his leg secondary to pain. Lungs diminished. Plan. Basic labs. Chest x-ray as he is hypoxic. We will manage his hip. Chest x-ray is clear. We will check CTA. Patient's left hip is dislocated. Has been discussed with orthopedics. Uncomfortable sedating him at this time and he is hypoxic. 40 minutes of critical care exclusive of separately billable procedures.
[2017-06-03 13:25] LABS: Basophils % 0.2 %; Eosinophils # 0.2 K/mcL (0.0-0.6); Eosinophils % 1.2 %; Hematocrit 25.8 % (37.5-50.1); Hemoglobin 8.3 g/dL (12.9-16.9); Immature Granulocytes % 1.2 % (0-4); Lymphocytes # 1.2 K/mcL (0.6-4.6); Lymphocytes % 10.2 %; Mean Corpuscular HGB Conc 32.2 g/dL (31.6-35.5); Mean Corpuscular Hemoglobin 29.9 pg (28.0-33.3); Mean Corpuscular Volume 92.8 fL (83.0-100.0); Mean Platelet Volume 10.1 fL (9.4-12.4); Monocytes # 1.4 K/mcL (0.0-1.3); Monocytes % 11.9 %; Platelet Count 111 K/mcL (140-400); Red Blood Count 2.78 M/mcL (4.19-5.50); Red Cell Distribution Width 16.4 % (11.5-14.5); Segmented Neutrophils % 75.3 %
[2017-06-03 13:29] LABS: INR 1.2
[2017-06-03 13:31] LABS: Activated Partial Thrombo Time 35.3 Seconds (26.0-36.0)
[2017-06-03 13:36] LABS: BUN/Creatinine Ratio 20 (6-26); Blood Urea Nitrogen 27 mg/dL (8-26); Calcium 7.6 mg/dL (8.6-10.8); Carbon Dioxide 20 mEq/L (19-29); Chloride 105 mEq/L (98-109); Glucose 180 mg/dL (70-99); Magnesium 1.8 mg/dL (1.6-2.6); Osmolality,Calculated 288 (280-300); Potassium 3.9 mEq/L (3.5-4.5); Sodium 134 mEq/L (136-145); eGFR For African Americans > 60 (> 60); eGFR For Non-African Americans 52 (> 60)
[2017-06-03 14:35] LABS: ABG Base Excess -7 mEq/L (-2 to 3); ABG HCO3 20 mEq/L (21-27); ABG Oxygen Saturation 92 % (95-98); ABG PCO2 44 mmHg (35-45); ABG PH 7.26 pH Units (7.32-7.45); ABG PO2 73 mmHg (85-104); ABG TCO2 21 mEq/L (20-26)
[2017-06-03] MEDS ORDERED: 0.9 % Sodium Chloride 500 ML IVC ONE (16:25)
--- NOTE | 2017-06-03 17:43 | Internal Med History&Physical ---
<Paolo Hurtado - Last Filed: 06/03/17 18:50> Date of Encounter: 06/03/17 Time of Encounter: 05:00 Assessment and Plan (1) Respiratory acidosis Current visit: Yes Status: Acute Respiratory acidosis secondary to decreased respiratory drive from opioid overdose PH 7.26, PCO2 44, O2 73, HCO3 20 There is an anion gap of 9 O2 sats 96% on 10 L O2 Patient's respiratory rate has been documented between 8 and 18, however on exam it hovered at about 10 (2) Respiratory failure Current visit: Yes Status: Acute Acute hypoxic respiratory failure secondary to unintentional opioid overdose ABG shows pH 7.26 PCO2 44 PO2 73 HCO3 20 Despite acidosis, patient's respiratory drive has remained low The patient was given Narcan on admission We will get another ABG to determine acid base status Qualifiers: Chronicity: acute Respiratory failure complication: hypoxia and hypercapnia Qualified Code(s): J96.01 - Acute respiratory failure with hypoxia ; J96.02 - Acute respiratory failure with hypercapnia; J96.02 - Acute respiratory failure with hypercapnia; J96.02 - Acute respiratory failure with hypercapnia (3) Accidental overdose Current visit: Yes Status: Acute Narcotic accidental overdose Patient took additional oxycodone for pain We will continue to monitor Unlikely patient had an intervention for self-harm Qualifiers: Encounter type: initial encounter Qualified Code(s): T50.901A - Poisoning by unspecified drugs, medicaments and biological substances, accidental ( unintentional), initial encounter (4) Dislocation of internal left hip prosthesis, initial encounter Current visit: Yes Status: Acute Dislocation noted on hip x-ray and pelvic x-ray Orthopedic consult Dr. Cannon has been notified and is intending open reduction tomorrow if the patient is stable We will attempt to manage pain without decreasing her respiratory drive (5) Hypotension Current visit: Yes Status: Acute Initiate fluid resuscitation Give 1 L bolus normal saline Q1 100 mL per hour normal saline Qualifiers: Hypotension type: unspecified hypotension type Qualified Code(s): I95.9 - Hypotension, unspecified (6) Weakness Current visit: Yes Status: Acute Likely secondary to recent surgery, and opioid use We will continue to monitor, consult PT OT when possible (7) CAD (coronary artery disease) Current visit: No Status: Chronic Coronary artery disease status post CABG in 2011 and previous stents Stable at this time Qualifiers: Coronary Disease-Associated Artery/Lesion type: unspecified vessel or lesion type [place] vs. transplanted heart: unspecified whether [place] or transplanted heart Associated angina: without angina Qualified Code(s): I25.10 - Atherosclerotic heart disease of [place] coronary artery without angina pectoris (8) Bradycardia Current visit: No Status: Chronic Bradycardia status post pacemaker The patient is bradycardic and hypotensive, but stable We will interrogate the pacemaker, and continue to monitor (9) COPD (chronic obstructive pulmonary disease) Current visit: No Status: Chronic Currently stable Continue to monitor Qualifiers: COPD type: unspecified COPD Qualified Code(s): J44.9 - Chronic obstructive pulmonary disease, unspecified (10) DVT prophylaxis Current visit: Yes Status: Acute Lovenox q12 Hold after midnight for possible procedure in the morning Internal Medicine - H&P: HPI Admitted From: Emergency Dept Plans for Post Hospital Care: Transfer Inp Rehab Fac History of present illness: Mr. Huddleston is a 72 year old male with history of Hip replacement with revision one week ago, CAD s/p CABD 2011, bradycardia s/p AICD 2016, AFib, COPD, Diabetes mellitus type 2, and HTN who was discharged from the hospital one day ago following revision of his hip replacement. He presents to the ED via EMS following a fall of unknown etiology in the evening last night. The patient is somnolent and most detailed history comes from his who is present in the room. The patient experienced a fall last night while unsupervised and was down for a short period of time. Apparently while in the ED, the patient was more awake and stated that he was having generalized weakness with a near syncopal episode about one day ago standing in his kitchen. He claims that he did not lose consciousness. He did not want to go to the hospital at that time and instead opted to wait until today. His states that he he called his surgeon due to the pain this morning and apparently was told that he could take one extra oxycodone. Later in the afternoon his noticed that he was increasingly somnolent and difficult to arouse, which progressed until he was unable to be aroused altogether. On route to the hospital the patient was noted to be mildly hypoxic with decreased respiratory drive. In the ED the patient was somnolent and difficult to arouse, so he was given 1 dose of Narcan and a bolus of normal saline which aroused him. Chest x-ray showed no significant interval change and no acute cardiopulmonary process, chest CTA was negative for pulmonary embolus. Femur x-ray shows left hip replacement dislocation with superior displacement of the moral component in relation to the acetabulum without fracture. AP x-ray pelvis shows left hip replacement dislocation with superior displacement of moral component relation to the acetabulum without fracture of the pelvis or left femur. On arrival his vitals were: Temperature 97.7, heart rate 61, and respiratory rate 81, pressure 100/73 , O2 92 on 2 L. Labs: WBC 12.0, hemoglobin 8.3, hematocrit 25.8, platelet 111, INR 1.2, sodium 134, potassium 3.9, chloride 105, Anion Gap 9, carbon dioxide 20 , BUN 27, creatinine 1.36, GFR 52, glucose 180, troponin 0.04. ABG showed pH 7.26, PCO2 44, PO2 73, HCO3 20. The patient will be admitted with cardiac telemetry and continuous O2 monitoring. Past Med Surg Social Fam HX - Past Medical History Source: patient, old records reviewed, obtained from family ( is in the room ) Medical history: atrial fibrillation, CHF, COPD, coronary artery disease, CVA, DVT, diabetes, GERD, hypertension, myocardial infarction, pulmonary embolus, syncope, other Psychiatric history: anxiety, PTSD - Past Surgical History Surgical History: appendectomy, carotid endarterectomy, coronary bypass (CABG), hip replacement, LE stent(s), vascular surgery, pacemaker - Social History Smoking Status: Former smoker Smokeless Tobacco Status: No Alcohol use: none Drug use: none - Family History Father Hx Family Cancer: Yes Internal Medicine - H&P: Meds Furosemide [Lasix] 20 mg PO Q48H 04/13/15 [History] GlipiZIDE [Glucotrol] 7.5 mg PO BID 04/13/15 [History] Atorvastatin [Lipitor] 10 mg PO HS 10/16/15 [History] Amiodarone [Cordarone] 200 mg PO DAILY 02/08/16 [History] Lactobacillus [Culturelle] 1 each PO DAILY 02/08/16 [History] Enoxaparin [Lovenox *PHARMACY WT BASED*] 60 mg SQ Q12HR #8 syringe 05/31/17 [Rx] Albuterol Sulfate [Albuterol Inhaler] 2 puff IH QID PRN 06/01/17 [History] Brimonidine Tartrate [Alphagan P] 1 drop BOTH EYES TID 06/01/17 [History] Cholecalciferol (Vitamin D3) [Vitamin D] 2,000 unit PO DAILY 06/01/17 [History] Enoxaparin [Lovenox] 120 mg SQ DAILY 06/01/17 [History] Furosemide [Lasix] 40 mg PO Q48H 06/01/17 [History] Ipratropium/Albuterol Neb [Duoneb] 3 ml IH QID 06/01/17 [History] Levothyroxine [Synthroid] 50 mcg PO QAM 06/01/17 [History] Losartan Potassium [Cozaar] 100 mg PO DAILY 06/01/17 [History] Metformin HCl [Glucophage] 1,000 mg PO BID 06/01/17 [History] Metoprolol Succinate 25 mg PO DAILY 06/01/17 [History] Oxycodone HCl 20 mg PO Q12H 06/01/17 [History] Pregabalin [Lyrica] 200 mg PO BID 06/01/17 [History] Sertraline [Zoloft] 100 mg PO QPM 06/01/17 [History] Warfarin [Coumadin] 2 mg PO TH 06/01/17 [History] Warfarin [Coumadin] 4 mg PO SUMOTUWEFRSA 06/01/17 [History] amLODIPine [Norvasc] 5 mg PO DAILY 06/01/17 [History] 3 Allergy/AdvReac Type Severity Reaction Status Date / Time azithromycin Allergy See Verified 06/01/17 16:50 Comments ceftriaxone Allergy See Verified 06/01/17 16:50 Comments morphine Allergy See Verified 06/01/17 16:50 Comments sulfamethoxazole AdvReac See Verified 06/01/17 16:50 [From Bactrim] Comments trimethoprim [From Bactrim] AdvReac See Verified 06/01/17 16:50 Comments ROS unobtainable: due to mental status (Much came from , as patient was somnolent) All Systems PM: A 10-system review of systems was performed and is negative for pertinent findings except as documented above in the HPI. - Constitutional Constitutional: no chills, no fever(s), no night sweats - EENT Eyes: no change in vision, no pain, no photophobia Ears: no tinnitus Nose, mouth and throat: no dysphagia, no neck mass, no neck pain, no sore throat - Cardiovascular Cardiovascular ROS IM: dyspnea, dyspnea on exertion (normal, patient uses scooter at home), no chest pain, no diaphoresis, no lightheadedness, no palpitations, no syncope - Respiratory Respiratory: dyspnea, dyspnea on exertion, no cough, no hemoptysis, no wheezing , no excessive phlegm production - Gastrointestinal Gastrointestinal: no abdominal pain, no diarrhea, no nausea, no vomiting - Musculoskeletal Musculoskeletal ROS IM: as per HPI, no numbness, no tingling - Integumentary Integumentary IM: no rash, no unusual bruising - Neurological Neurological ROS: weakness, no abnormal speech, no behavioral changes, no confusion, no convulsions, no disequilibrium, no focal weakness, no loss of vision, no memory loss, no numbness, no tingling, no tremor(s) - Endocrine Endocrine IM: no deeping of the voice, no flushing, no polyphagia, no polyuria - Hematologic/Lymphatic Hematologic/Lymphatic: easy bleeding, easy bruising Additional comments: on warfarin - Constitutional Vitals: Temp Pulse Resp BP Pulse Ox 98.3 F 61 16 85/35 96 06/03/17 16:55 06/03/17 16:55 06/03/17 16:27 06/03/17 16:55 06/03/17 16:55 General appearance: Present: cooperative, mild distress, answers questions appropriately Exam: Alert to verbal stimuli, orientedx3. Cooperative but somnolent - Head Head exam: Present: atraumatic, normocephalic - Eye Eye exam: Present: PERRL, conjuntiva pink, sclera anicteric. Absent: nystagmus , scleral icterus Pupils: Present: miosis, PERRL - Neck Neck exam general surgery: Present: supple, trachea midline. Absent: lymphadenopathy, tenderness - Respiratory Respiratory exam: Present: decreased breath sounds, CTAB, respiratory distress. Absent: accessory muscle use, rales, rhonchi, wheezes Additional comments: Mild increased work of breathing - Cardiovascular Cardiovascular exam: Present: bradycardia, RRR, +S1, +S2. Absent: diastolic murmur, gallop, rubs, systolic murmur - GI/Abdominal GI/Abdominal exam: Present: hernia (Ventral hernia noted midline upper abdomen) , normal bowel sounds, no peritoneal signs. Absent: distended, mass, pulsatile mass, tenderness Additional comments: Abdomen is nondistended however it is taut, there is no tenderness to palpation , rebound tenderness, guarding - Extremities Exam Extremities exam: Present: normal capillary refill, warm, radial pulses palpable and symmetrical. Absent: calf tenderness, cyanotic, pedal edema Additional comments: No evident edema of the left hip, incision site appropriate with no weeping or discharge - Neurological Exam Neurological exam: Present: oriented X3, no focal deficits. Absent: pronater drift, facial droop, speech deficit - Skin Skin exam: Present: dry, intact Internal Med - H&P Results - Labs CBC & Chem 7: 06/03/17 13:16 06/03/17 13:16 <Jorge Goetz - Last Filed: 06/03/17 19:17> Date of Encounter: 06/03/17 Assessment and Plan (1) Respiratory failure Current visit: Yes Status: Acute Qualifiers: Chronicity: acute Respiratory failure complication: hypoxia and hypercapnia Qualified Code(s): J96.01 - Acute respiratory failure with hypoxia ; J96.02 - Acute respiratory failure with hypercapnia; J96.02 - Acute respiratory failure with hypercapnia; J96.02 - Acute respiratory failure with hypercapnia (2) Accidental overdose Current visit: Yes Status: Acute Qualifiers: Encounter type: initial encounter Qualified Code(s): T50.901A - Poisoning by unspecified drugs, medicaments and biological substances, accidental ( unintentional), initial encounter (3) Dislocation of internal left hip prosthesis, initial encounter Current visit: Yes Status: Acute (4) Hypotension Current visit: Yes Status: Acute Qualifiers: Hypotension type: unspecified hypotension type Qualified Code(s): I95.9 - Hypotension, unspecified (5) Near syncope Current visit: Yes Status: Acute (6) Atrial fibrillation Current visit: No Status: Chronic Qualifiers: Atrial fibrillation type: chronic Qualified Code(s): I48.2 - Chronic atrial fibrillation (7) CAD (coronary artery disease) Current visit: No Status: Chronic Qualifiers: Coronary Disease-Associated Artery/Lesion type: [place] artery [place] vs. 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 Huddleston is a 72 year old male All Systems PM: A 10-system review of systems was performed and is negative for pertinent findings except as documented above in the HPI. - Constitutional Vitals: Temp Pulse Resp BP Pulse Ox 97.9 F 62 22 108/80 96 06/03/17 18:55 06/03/17 18:55 06/03/17 18:55 06/03/17 18:55 06/03/17 16:55 Internal Med - H&P Results - Labs CBC & Chem 7: 06/03/17 13:16 06/03/17 13:16 - ABG Interpretation ABG results: 06/03/17 18:47 ABG pH 7.25 L ABG pCO2 52 H ABG pO2 49 L* ABG HCO3 23 ABG Total CO2 24 ABG O2 Saturation 78 L ABG Base Excess -4 L - Attending Attestation I examined this patient and my medical decision-making was reviewed with the Resident Physician on 06/03/17. I agree with the documented findings, disposition and treatment plan as described except to the extent set forth below. Mr Huddleston is 72 y/o male just released from [facility] yesterday. He had been admitted for revision of L hip prosthesis. He developed pain in his hip and had a fall. Spoke to office and took extra pain med. He has been somnolent throughout the day and brought to ED. Currently he remains hypotensive and somnolent. He will arouse to name. at bedside. Exam Arousable. Mucus membranes dry Heart reg Lungs diminished - no wheeze Abd distended. Soft. ? tender. No edema present. Deformity L hip I/P 1. Hypotension - most likely med related. Hydrate. Check lactate. Follow BP 2. Acute resp failure - repeat blood gas 3. Repeat labs 4. Check cultures 5. L hip dislocation - plan for OR tomorrow. Will evaluate status in AM Pt currently high risk due to acute resp failure and hypotension.
[2017-06-03] MEDS ORDERED: 0.9 % Sodium Chloride 1,000 ML ONE (18:22)
[2017-06-03] MEDS ORDERED: Ondansetron 4 MG/2 ML VIAL IVP PRN (18:23)
[2017-06-03] MEDS ORDERED: MOM Conc 10 ML UD.LIQ PO PRN (18:23)
[2017-06-03] MEDS ORDERED: Naloxone 0.4 MG/ML INJ IVP PRN (18:23)
[2017-06-03] MEDS ORDERED: 0.9 % Sodium Chloride 1,000 ML IVC ONE (18:35)
[2017-06-03] MEDS ORDERED: Dextrose Gel 15 GM PO PRN ×2 (18:36)
[2017-06-03] MEDS ORDERED: *HR* Dextrose 50 % in Water (Syg) 50 ML SYRINGE IVP PRN (18:36)
[2017-06-03] MEDS ORDERED: D5% in Water 1,000 ML IVC PRN (18:36)
[2017-06-03 18:53] LABS: ABG Base Excess -4 mEq/L (-2 to 3); ABG HCO3 23 mEq/L (21-27); ABG Oxygen Saturation 78 % (95-98); ABG PCO2 52 mmHg (35-45); ABG PH 7.25 pH Units (7.32-7.45); ABG PO2 49 mmHg (85-104); ABG TCO2 24 mEq/L (20-26)
--- NOTE | 2017-06-03 19:40 | Anesthesia Evaluation PreOp ---
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 Significant HX Other Medical History: Diabetes Type II, Thyroid, Other (H/O DVT) Anesthesia History: No Prior Anesthetic Complications, Past Anesthesia (left THR , left fem bypass) Alcohol Use: none Drug use: none Medications and Allergies Furosemide [Lasix] 20 mg PO Q48H 04/13/15 [History] GlipiZIDE [Glucotrol] 7.5 mg PO BID 04/13/15 [History] Atorvastatin [Lipitor] 10 mg PO HS 10/16/15 [History] Amiodarone [Cordarone] 200 mg PO DAILY 02/08/16 [History] Lactobacillus [Culturelle] 1 each PO DAILY 02/08/16 [History] Albuterol Sulfate [Albuterol Inhaler] 2 puff IH QID PRN 06/01/17 [History] Brimonidine Tartrate [Alphagan P] 1 drop BOTH EYES TID 06/01/17 [History] Cholecalciferol (Vitamin D3) [Vitamin D] 2,000 unit PO DAILY 06/01/17 [History] Enoxaparin [Lovenox] 120 mg SQ DAILY 06/01/17 [History] Furosemide [Lasix] 40 mg PO Q48H 06/01/17 [History] Ipratropium/Albuterol Neb [Duoneb] 3 ml IH QID 06/01/17 [History] Levothyroxine [Synthroid] 50 mcg PO QAM 06/01/17 [History] Losartan Potassium [Cozaar] 100 mg PO DAILY 06/01/17 [History] Metformin HCl [Glucophage] 1,000 mg PO BID 06/01/17 [History] Metoprolol Succinate 25 mg PO DAILY 06/01/17 [History] Oxycodone HCl 20 mg PO Q12H 06/01/17 [History] Pregabalin [Lyrica] 200 mg PO BID 06/01/17 [History] Sertraline [Zoloft] 100 mg PO QPM 06/01/17 [History] Warfarin [Coumadin] 2 mg PO TH 06/01/17 [History] Warfarin [Coumadin] 4 mg PO SUMOTUWEFRSA 06/01/17 [History] amLODIPine [Norvasc] 5 mg PO DAILY 06/01/17 [History] Bisacodyl [Dulcolax] 5 mg PO BID 06/03/17 [History] Clopidogrel [Plavix] 75 mg PO DAILY 06/03/17 [History] Magnesium Hydroxide [Milk of Magnesia] 2,400 mg PO HS PRN 06/03/17 [History] Polyethylene Glycol 3350 [MiraLAX] 17 gm PO BID PRN 06/03/17 [History] Potassium Chloride [Klor-Con 10] 10 meq PO DAILY 06/03/17 [History] Sennosides/Docusate Sodium [Senna Plus] 2 each PO TID 06/03/17 [History] Tiotropium [Spiriva] 18 mcg IH 0700 06/03/17 [History] Travoprost [Travatan Z] 1 drop BOTH EYES HS 06/03/17 [History] traZODone [TraZODone] 50 mg PO HS PRN 06/03/17 [History] 3 Allergy/AdvReac Type Severity Reaction Status Date / Time azithromycin Allergy See Verified 06/01/17 16:50 Comments ceftriaxone Allergy See Verified 06/01/17 16:50 Comments morphine Allergy See Verified 06/01/17 16:50 Comments sulfamethoxazole AdvReac See Verified 06/01/17 16:50 [From Bactrim] Comments trimethoprim [From Bactrim] AdvReac See Verified 06/01/17 16:50 Comments - Meds/Allergy Pre-op Review Medications Reviewed: Yes Allergies Reviewed: Yes Beta Blockers on Current Med List: No Anesthesia Results - Labs 06/03/17 19:55 06/03/17 19:55 - Imaging EKG: report reviewed (06/01/2017 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 There is mild LV Dysfunction EF 45%. S/P CABG 2 of 2 patent bypass grafts. 10/17/2015 Echo EF 50% atypical septal motion c/w post-op status moderate LV diastolic dysfunction moderate bi-atrial enlargement mild-moderate TR moderate pulmonary HTN 04/14/2015 Stress Impression: Perfusion imaging was negative for ischemia or infarct. Pharmacologic ECG was negative for ischemia at the level of heart rate achieved. Patient had no chest pain with stress. Normal hemodynamic response. No arrhythmias noted with stress. Gated EF = 59%. The LV is not dilated. There is no evidence of TID. Anesthesia Exam Vital Signs/O2 Sat/Glucose, Most Recent Temp Pulse Resp BP Pulse Ox 97.9 F 61 18 111/54 96 06/03/17 19:24 06/03/17 19:24 06/03/17 19:24 06/03/17 19:24 06/03/17 19:24 Blood Glucose* 147 Height: 5'7''/1.7 m Weight: 187 lbs/85.1 kg NPO (# of Hours): 8 - HEENT Pupil (Motor): EOMI Mallampati: II Teeth: Edentulous Oral Opening: Greater than 3 - TRACTOR OPERATOR HELPER LOC: Oriented TRACTOR OPERATOR HELPER Motor: Normal RUE, Normal LUE, Normal RLE, Normal LLE, Normal Face TRACTOR OPERATOR HELPER Sensory: Normal: RUE, LUE, RLE, Face, Deficit: LLE (neuropathy) - Cardiac Rhythm: Regular Murmur: Systolic - Pulmonary Breath Sounds: bilateral Clear (distant BS) Respiratory Effort: Symmetrical Anesthesia Assess/Plan ASA Score: 4 (Patient is at increased risk for perioperative complications including myocardial infarct, arrhythmias, CVA, post op vent support/ICU stay, and . Patient wishes to proceed.) Modified Diamond Scale for Level of Consciousness: Cooperative, oriented, and tranquil Anesthetic Plan: General Monitoring Plan: Standard Monitors Recovery Plan: PACU
[2017-06-03] MEDS: *HR* Enoxaparin 30 MG/0.3 ML SYRINGE SQ SCH (20:02)
[2017-06-03] MEDS: 0.9 % Sodium Chloride 1,000 ML IVC SCH (20:03)
--- NOTE | 2017-06-03 20:03 | Orthopedic Consult Note ---
Date of Encounter: 06/03/17 Time of Encounter: 16:00 Assessment and Plan (1) Dislocation of internal left hip prosthesis, initial encounter Current Visit: Yes Status: Acute (2) Anticoagulant long-term use Current Visit: No Status: Chronic History of Present Illness Chief complaint: hip pain s/p fall HPI: Mr. Huddleston is a 72 year old male presenting to [place] ED on 06/03/17 after a fall yesterday late evening. He is POD #2 from Left hip removal of hardware, hip arthrotomy exploration secondary to painful hardware left hip. He presents with his . They relate that his left the house for a short period yesterday evening and he got up from his chair and using a cane rather than walker attempted to walk into their kitchen. At some point during that period he states that he became "lightheaded or I don't know what and slid down to floor and couldn't get up". They state that they called the [facility] office this morning and were given an appt time in the office but to go to ER if not able to get to our office. Patient states he was instructed to take extra pain medication as well however this provider is unable to find any documentation regarding instructions for pain medication as patient gets chronic Oxycodone 20mg supply from [place] prescriber. He states that he has "only taken one" Oxycodone 20mg tablet since discharge on 06/01 however he admits to take 1 tablet Oxycodone 20mg this morning then taking another Oxycodone 20mg tablet after speaking with [facility] staff after believing them to tell him to take an extra pain pill. He states he normally takes the Oxycodone 20mg tablets just 1 tablet every 3-4 days. He was not prescribed post-operative medication on 06/01 as he has a supply of chronic pain medication from [facility]. Patient was given Narcan in ED and had positive response. Patient states he is unable to walk with his hip pain and states he is not feeling well. He denies chest pain, fever, other physical injury including head trauma, nausea, vomiting, or incision redness, irritation, or drainage. On exam he is lying in ED bed with at bedside. He is shaking - patient received Narcan shortly before this providers arrival to the ED. He has O2 via mask applied. With respect to his left hip, incision intact, dressing starting to come off. No erythema, petechiae, or drainage. No induration or fluctuance noted with palpation. Minimal tenderness to palpation. Left lower extremity is shortened and internally rotated. Neurovascularly intact to bilateral lower extremities. Pelvis xray in ED shows: XR/XR pelvis AP view IMPRESSION: Left hip replacement dislocation with superior displacement of the femoral component in relation to the acetabulum. No fracture identified in the pelvis or left femur. D/ / Maria Luisa Lewis MD / Maria Luisa Lewis MD Case discussed with Dr. Cannon. Patient will have operation tomorrow for closed reduction versus stem replacement. Discussed plan with patient and spouse and answered their questions to their satisfaction. After discussing risks vs benefits, written consent was obtained from patient and spouse. Patient being admitted to hospitalist. Pain control cautiously secondary to patient needing Narcan in ED. Patient NPO after midnight. Procedure 06/04. Past Med Surg Social Fam HX - Past Medical History Medical history: atrial fibrillation, CHF, COPD, coronary artery disease, CVA, DVT, diabetes, GERD, hypertension, myocardial infarction, pulmonary embolus, syncope, other Psychiatric history: anxiety, PTSD - Past Surgical History Surgical History: appendectomy, carotid endarterectomy, coronary bypass (CABG), hip replacement, LE stent(s), vascular surgery, pacemaker - Social History Smoking Status: Former smoker Smokeless Tobacco Status: No Alcohol use: none Drug use: none - Family History Father Hx Family Cancer: Yes Medications and Allergies Furosemide [Lasix] 20 mg PO Q48H 04/13/15 [History] GlipiZIDE [Glucotrol] 7.5 mg PO BID 04/13/15 [History] Atorvastatin [Lipitor] 10 mg PO HS 10/16/15 [History] Amiodarone [Cordarone] 200 mg PO DAILY 02/08/16 [History] Lactobacillus [Culturelle] 1 each PO DAILY 02/08/16 [History] Albuterol Sulfate [Albuterol Inhaler] 2 puff IH QID PRN 06/01/17 [History] Brimonidine Tartrate [Alphagan P] 1 drop BOTH EYES TID 06/01/17 [History] Cholecalciferol (Vitamin D3) [Vitamin D] 2,000 unit PO DAILY 06/01/17 [History] Enoxaparin [Lovenox] 120 mg SQ DAILY 06/01/17 [History] Furosemide [Lasix] 40 mg PO Q48H 06/01/17 [History] Ipratropium/Albuterol Neb [Duoneb] 3 ml IH QID 06/01/17 [History] Levothyroxine [Synthroid] 50 mcg PO QAM 06/01/17 [History] Losartan Potassium [Cozaar] 100 mg PO DAILY 06/01/17 [History] Metformin HCl [Glucophage] 1,000 mg PO BID 06/01/17 [History] Metoprolol Succinate 25 mg PO DAILY 06/01/17 [History] Oxycodone HCl 20 mg PO Q12H 06/01/17 [History] Pregabalin [Lyrica] 200 mg PO BID 06/01/17 [History] Sertraline [Zoloft] 100 mg PO QPM 06/01/17 [History] Warfarin [Coumadin] 2 mg PO TH 06/01/17 [History] Warfarin [Coumadin] 4 mg PO [id number] 06/01/17 [History] amLODIPine [Norvasc] 5 mg PO DAILY 06/01/17 [History] Bisacodyl [Dulcolax] 5 mg PO BID 06/03/17 [History] Clopidogrel [Plavix] 75 mg PO DAILY 06/03/17 [History] Magnesium Hydroxide [Milk of Magnesia] 2,400 mg PO HS PRN 06/03/17 [History] Polyethylene Glycol 3350 [MiraLAX] 17 gm PO BID PRN 06/03/17 [History] Potassium Chloride [Klor-Con 10] 10 meq PO DAILY 06/03/17 [History] Sennosides/Docusate Sodium [Senna Plus] 2 each PO TID 06/03/17 [History] Tiotropium [Spiriva] 18 mcg IH 0700 06/03/17 [History] Travoprost [Travatan Z] 1 drop BOTH EYES HS 06/03/17 [History] traZODone [TraZODone] 50 mg PO HS PRN 06/03/17 [History] 3 Allergy/AdvReac Type Severity Reaction Status Date / Time azithromycin Allergy See Verified 06/01/17 16:50 Comments ceftriaxone Allergy See Verified 06/01/17 16:50 Comments morphine Allergy See Verified 06/01/17 16:50 Comments sulfamethoxazole AdvReac See Verified 06/01/17 16:50 [From Bactrim] Comments trimethoprim [From Bactrim] AdvReac See Verified 06/01/17 16:50 Comments All Systems Reviewed: A 10-system review of systems was performed and is negative for pertinent findings except as documented above in the HPI. Physical Exam - Constitutional Vitals: Temp Pulse Resp BP Pulse Ox 97.9 F 61 14 111/54 99 06/03/17 19:24 06/03/17 19:24 06/03/17 19:40 06/03/17 19:24 06/03/17 19:40 Results - Labs Result Diagrams: 06/03/17 13:16 06/03/17 13:16 Labs: Abnormal lab results WBC 12.0 K/mcL (4.3-11.1) H 06/03/17 13:16 RBC 2.78 M/mcL (4.19-5.50) L 06/03/17 13:16 Hgb 8.3 g/dL (12.9-16.9) L 06/03/17 13:16 Hct 25.8 % (37.5-50.1) L 06/03/17 13:16 RDW 16.4 % (11.5-14.5) H 06/03/17 13:16 Plt Count 111 K/mcL (140-400) L 06/03/17 13:16 Neutrophils # 9.0 K/mcL (1.6-8.9) H 06/03/17 13:16 Monocytes # 1.4 K/mcL (0.0-1.3) H 06/03/17 13:16 PT 13.0 Seconds (9.4-12.1) H 06/03/17 13:17 ABG pH 7.25 pH Units (7.32-7.45) L 06/03/17 18:47 ABG pCO2 52 mmHg (35-45) H 06/03/17 18:47 ABG pO2 49 mmHg (85-104) L* 06/03/17 18:47 ABG O2 Saturation 78 % (95-98) L 06/03/17 18:47 ABG Base Excess -4 mEq/L (-2 to 3) L 06/03/17 18:47 Sodium 134 mEq/L (136-145) L 06/03/17 13:16 BUN 27 mg/dL (8-26) H 06/03/17 13:16 Creatinine 1.36 mg/dL (0.72-1.25) H 06/03/17 13:16 Est GFR (Non-Af Amer) 52 (> 60) L 06/03/17 13:16 Glucose 180 mg/dL (70-99) H 06/03/17 13:16 POC Glucose 142 (58-89) H 06/03/17 15:22 Calcium 7.6 mg/dL (8.6-10.8) L 06/03/17 13:16 Troponin I 0.04 ng/mL (0-0.03) H* 06/03/17 13:16 All other labs normal. Consult Discharge Plan - Plan [facility]errals: [facility] [Primary Care Provider[facility] -
[2017-06-03 20:05] LABS: Basophils % 0.1 %; Red Cell Distribution Width 16.8 % (11.5-14.5)
[2017-06-03 20:07] LABS: Eosinophils # 0.1 K/mcL (0.0-0.6); Eosinophils % 0.8 %; Hematocrit 24.7 % (37.5-50.1); Hemoglobin 8.1 g/dL (12.9-16.9); Immature Platelets 4.1 % (1.1-6.1); Lymphocytes # 0.6 K/mcL (0.6-4.6); Lymphocytes % 6.9 %; Mean Corpuscular HGB Conc 32.8 g/dL (31.6-35.5); Mean Corpuscular Volume 91.5 fL (83.0-100.0); Mean Platelet Volume 10.4 fL (9.4-12.4); Monocytes % 10.7 %; Neutrophils # 7.4 K/mcL (1.6-8.9); Nucleated Red Blood Cells 0.2 /100 WBC (0); Segmented Neutrophils % 80.5 %
[2017-06-03 20:09] LABS: Platelet Count 99 K/mcL (140-400)
[2017-06-03 20:20] LABS: Albumin/Globulin Ratio 1.2 (1.1-2.2); Bilirubin,Total 0.3 mg/dL (0.2-1.2); Calcium 7.8 mg/dL (8.6-10.8); Globulin 2.6 g/dL (2.4-3.5); Magnesium 1.9 mg/dL (1.6-2.6); Potassium 4.6 mEq/L (3.5-4.5); Total Protein 5.6 g/dL (6.0-8.3)
[2017-06-04] MEDS: Insulin LISPRO 300 UNITS/3 ML VIAL SQ SCH ×4 (00:01→17:01)
[2017-06-04 01:36] LABS: Bilirubin,Urine Negative (Negative); Blood,Urine Negative (Negative); Clarity,Urine Clear (Clear); Color,Urine Yellow (Yellow); Glucose,Urine (UA) Normal (Normal); Ketones,Urine Negative (Negative); Leukocyte Esterase,Urine Negative (Negative); Nitrite,Urine Negative (Negative); Protein,Urine Negative (Neg-Trace); Urobilinogen,Urine Normal (Normal)
[2017-06-04 04:24] LABS: ABG Base Excess -5 mEq/L (-2 to 3); ABG HCO3 20 mEq/L (21-27); ABG Oxygen Saturation 93 % (95-98); ABG PCO2 34 mmHg (35-45); ABG PH 7.37 pH Units (7.32-7.45); ABG PO2 69 mmHg (85-104); ABG TCO2 21 mEq/L (20-26)
[2017-06-04] MEDS: 0.9 % Sodium Chloride 1,000 ML IVC SCH ×3 (06:17→22:07)
[2017-06-04] MEDS: *HR* Enoxaparin 30 MG/0.3 ML SYRINGE SQ SCH ×2 (06:19→16:59)
[2017-06-04] MEDS ORDERED: Ondansetron 4 MG/2 ML VIAL ONE ×2 (07:09→08:32)
[2017-06-04] MEDS ORDERED: *HR* Succinylcholine 200 MG/10 ML VIAL IVP ONE (07:09)
[2017-06-04] MEDS ORDERED: *HR* Propofol 200 MG/20 ML VIAL IVP ONE (07:09)
[2017-06-04] MEDS ORDERED: *HR* FentaNYL (PF) 100 MCG/2 ML VIAL ONE (07:09)
[2017-06-04] MEDS ORDERED: Lidocaine -MPF 2% 2 ML VIAL ONE (07:09)
[2017-06-04] MEDS ORDERED: *HR* HYDROmorphone (PF) 1 MG/ML SYRINGE IVP PRN ×2 (07:16→09:58)
[2017-06-04] MEDS ORDERED: Ondansetron 4 MG/2 ML VIAL IVP ONE ×2 (07:16→09:58)
--- NOTE | 2017-06-04 07:51 | Orthopedics Progress Note ---
Date of Encounter: 06/04/17 Time of Encounter: 07:51 Subjective Interval history: Patient seen this morning doing well. Patient had an event yesterday sustaining a dislocation of his left hip. Patient status post surgery on Thursday. Plan is for closed reduction possible open reduction with revision of femoral head and neck length. We reviewed the risks and benefits as well as recovery. All questions were answered. The patient agreed to this treatment plan and appeared to understand the plan is reviewed. Objective Vital signs: Vital Signs Temp Pulse Resp BP Pulse Ox 06/04/17 04:10 17 97 06/04/17 03:51 98.1 F 61 18 107/52 98 06/03/17 23:50 99.1 F 59 17 90/54 92 06/03/17 23:15 16 95 06/03/17 21:38 16 96 06/03/17 19:40 14 99 06/03/17 19:24 97.9 F 61 18 111/54 96 06/03/17 18:55 97.9 F 62 22 108/80 Intake and Output 06/03/17 06/03/17 06/04/17 15:59 23:59 07:59 Intake Total 1000 / 1000 1000 / 1000 Output Total 1510 / 1510 Balance 1000 / 1000 -510 / -510 Intake: IV Fluids 1000 / 1000 1000 / 1000 0.9 % Sodium Chloride 1,000 ML 1000 / 1000 1000 / 1000 @ 100 mls/hr IVC .Q10H [facility]ILLY Rx#: [id number] Output: Urine 1060 / 1060 Urethral (Kirk) 1060 / 1060 Catheter 450 / 450 Other: Weight 85.6 kg Blood Glucose* 112 79 Patient Weight 06/04/17 23:59 Weight 85.6 kg - Labs CBC & BMP: 06/03/17 19:55 06/03/17 19:55 Labs: Abnormal lab results RBC 2.70 M/mcL (4.19-5.50) L 06/03/17 19:55 Hgb 8.1 g/dL (12.9-16.9) L 06/03/17 19:55 Hct 24.7 % (37.5-50.1) L 06/03/17 19:55 RDW 16.8 % (11.5-14.5) H 06/03/17 19:55 Plt Count 99 K/mcL (140-400) L 06/03/17 19:55 Nucleated RBCs/100 WBC 0.2 /100 WBC (0) H 06/03/17 19:55 PT 13.0 Seconds (9.4-12.1) H 06/03/17 13:17 ABG pCO2 34 mmHg (35-45) L 06/04/17 04:21 ABG pO2 69 mmHg (85-104) L 06/04/17 04:21 ABG HCO3 20 mEq/L (21-27) L 06/04/17 04:21 ABG O2 Saturation 93 % (95-98) L 06/04/17 04:21 ABG Base Excess -5 mEq/L (-2 to 3) L 06/04/17 04:21 Sodium 132 mEq/L (136-145) L 06/03/17 19:55 Potassium 4.6 mEq/L (3.5-4.5) H 06/03/17 19:55 Carbon Dioxide 18 mEq/L (19-29) L 06/03/17 19:55 BUN 30 mg/dL (8-26) H 06/03/17 19:55 Creatinine 1.47 mg/dL (0.72-1.25) H 06/03/17 19:55 Est GFR ( Amer) 57 (> 60) L 06/03/17 19:55 Est GFR (Non-Af Amer) 47 (> 60) L 06/03/17 19:55 Glucose 131 mg/dL (70-99) H 06/03/17 19:55 Calcium 7.8 mg/dL (8.6-10.8) L 06/03/17 19:55 AST 118 Units/L (5-34) H 06/03/17 19:55 Troponin I 0.05 ng/mL (0-0.03) H* 06/04/17 06:02 Serum Total Protein 5.6 g/dL (6.0-8.3) L 06/03/17 19:55 Albumin 3.0 g/dL (3.5-5.0) L 06/03/17 19:55 Consult Discharge Plan - Plan [facility]errals: [facility] [Primary Care Provider] -
[2017-06-04] MEDS ORDERED: Clindamycin 900 MG/50 ML 900 MG/50 ML IV.SOLN IVPB ONE (07:56)
[2017-06-04] MEDS ORDERED: Ethanol\\Acetic Acid\\Na Ace\\Ben 1,000 ML IRRIG.SOLN IR ONE (08:17)
[2017-06-04] MEDS ORDERED: Dexamethasone 4 MG/ML VIAL ONE (08:32)
[2017-06-04] MEDS ORDERED: Lidocaine -MPF 4% 5 ML AMPUL ONE (08:32)
--- NOTE | 2017-06-04 08:59 | Orthopedic Operative Note ---
Date of procedure: 06/04/17 Pre-op diagnosis: Dislocated left total hip Post-op diagnosis: same Procedure: Procedure: Left revision femoral head length of total hip Estimated blood loss: 100 cc Hardware: Metal Depuy: 28 head +12 Procedural Notes: Patient status post left hip surgery on Thursday patient fell dislocating left hip. Decision was made to do an open revision of femoral head length based on recent instability. Operative procedure: The patient was brought to the operating room and placed on the operating room table. After general anesthesia was administered the patient was placed in the lateral decubitus position with the operative leg up. All pressure points were padded appropriately and the head was stabilized in the neutral position. The incision was clean dry and intact. [place] were removed. The operative extremity was prepped and draped in the sterile surgical fashion patient received IV antibiotic prior to skin incision. The old incision for the posterior approach was opened up easily with a hemostat sutures were cut and removed taken down to the level of the hip joint. Patient had extensive hematoma this was irrigated with 1.5 L of normal saline. The head was removed the hip was trialed and found to be most stable with the + 12 length. The trials were removed and the real implants were impacted in place. The hip was reduced. The hip had excellent stability with forward flexion to 90 degrees adduction of 30 degrees and internal rotation of 60 degrees. The hip had no shuck. The hips after 2 minutes with a Betadine saline solution. It was irrigated out with 2 L of pulse irrigation. Fascia was closed with a running #2 PDS suture. The deep tissue was irrigated and closed deep with #1 PDS suture superficially with 0 PDS suture and skin was closed with Dermabond and skin anahi. The patient was placed in a sterile dressing and abduction pillow and a hinge knee brace locked in extension. The patient was extubated and transferred to the recovery room in stable condition. Anesthesia: GETA Surgeon: Andrea Cannon Condition: stable Disposition: PACU
[2017-06-04] MEDS ORDERED: Pantoprazole 40 MG VIAL IVP SCH (09:00)
--- NOTE | 2017-06-04 09:40 | Anesthesia Evaluation Post Op ---
Date of Encounter: 06/04/17 Time of Encounter: 09:39 - Vital Signs Vital Signs: Last Vital Signs Temp 97.6 F 06/04/17 09:30 Pulse 60 06/04/17 09:30 Resp 12 06/04/17 09:30 BP 102/47 06/04/17 09:30 Pulse Ox 96 06/04/17 09:30 - Lungs Lungs: Clear Ascult./Percussion - Airway Airway: Non-obstructed - Cardiovascular Regular Rate - Mental Status Mental Status: Alert & Oriented, Answers Appropriately - Pain Pain Scale: 2 - Nausea Vomiting Nausea Vomiting: Not Present - Hydration Hydration: NPO - Discharge PostOp Status: Transfer Patient to floor
[2017-06-04] MEDS ORDERED: Temazepam 15 MG CAPSULE PO PRN (09:58)
[2017-06-04] MEDS ORDERED: MOM Conc 10 ML UD.LIQ PO PRN (09:58)
[2017-06-04] MEDS ORDERED: D5% in Water 1,000 ML IVC PRN (09:58)
[2017-06-04] MEDS ORDERED: Dextrose Gel 15 GM PO PRN ×2 (09:58)
[2017-06-04] MEDS ORDERED: *HR* Dextrose 50 % in Water (Syg) 50 ML SYRINGE IVP PRN (09:58)
[2017-06-04] MEDS ORDERED: Ringers Solution, Lactated 1,000 ML IVC SCH (09:58)
[2017-06-04] MEDS ORDERED: Ondansetron 4 MG/2 ML VIAL IVP PRN ×2 (09:58)
[2017-06-04] MEDS ORDERED: Naloxone 0.4 MG/ML INJ IVP PRN (09:58)
[2017-06-04] MEDS ORDERED: Clindamycin 900 MG/50 ML 900 MG/50 ML IV.SOLN IVPB SCH (09:58)
[2017-06-04] MEDS ORDERED: Sennosides 8.6 MG TABLET PO PRN (09:58)
[2017-06-04] MEDS: *HR* OxyCODONE Immed Rel 5 MG TABLET PO PRN ×2 (11:45→12:17)
[2017-06-04] MEDS: Clindamycin 900 MG/50 ML 900 MG/50 ML IV.SOLN IVPB SCH ×2 (11:46→22:07)
[2017-06-04] MEDS: Multivit/Ca/Min/Fe/FA 1 TAB TABLET PO SCH (11:46)
[2017-06-04] MEDS: Ascorbic Acid 500 MG TABLET PO SCH ×2 (11:46→17:01)
--- NOTE | 2017-06-04 11:48 | Internal Med Progress Note ---
<Paolo Hurtado - Last Filed: 06/04/17 16:50> Date of Encounter: 06/04/17 Time of Encounter: 13:00 - Assessment and plan (1) Respiratory acidosis Current Visit: Yes Status: Acute Assessment and plan: Hypercarbic Respiratory acid, resolved Last ABG shows pH 7.37, PCO2 34, PO2 69, HCO3 20 Patient is breathing easier, in no respiratory distress We will get a VBG in the morning Overnight O2/BiPAP qualification (2) Anemia Current Visit: Yes Status: Acute Assessment and plan: Acute anemia, likely secondary to intraoperative hemorrhage Postop hemoglobin found to be 6.9 down from 8.1 2 units packed red blood cells transfused Hold Lovenox and warfarin at this time Qualifiers: Other causes of anemia: acute posthemorrhagic Qualified Code(s): D62 - Acute posthemorrhagic anemia (3) Respiratory failure Current Visit: Yes Status: Acute Assessment and plan: Acute respiratory failure secondary to accidental overdose, resolved Patient has resting easy on nasal cannula Pulse oximetry demonstrates adequate oxygenation We will continue to monitor continuous pulse ox Qualifiers: Chronicity: acute Respiratory failure complication: hypoxia and hypercapnia Qualified Code(s): J96.01 - Acute respiratory failure with hypoxia ; J96.02 - Acute respiratory failure with hypercapnia; J96.02 - Acute respiratory failure with hypercapnia; J96.02 - Acute respiratory failure with hypercapnia (4) Accidental overdose Current Visit: Yes Status: Acute Assessment and plan: Accidental overdose of opioid medication, resolved Qualifiers: Encounter type: initial encounter Qualified Code(s): T50.901A - Poisoning by unspecified drugs, medicaments and biological substances, accidental ( unintentional), initial encounter (5) Dislocation of internal left hip prosthesis, initial encounter Current Visit: Yes Status: Acute Assessment and plan: Dislocation of internal left hip prosthesis, status post ORIF (6) Hypotension Current Visit: Yes Status: Acute Assessment and plan: Patient's blood pressure has remained normotensive We will reinitiate home medications Qualifiers: Hypotension type: unspecified hypotension type Qualified Code(s): I95.9 - Hypotension, unspecified (7) Weakness Current Visit: Yes Status: Acute Assessment and plan: PT OT recommends transfer to swing bed upon medical clearance (8) CAD (coronary artery disease) Current Visit: No Status: Chronic Assessment and plan: Coronary artery disease status post CABG in 2012 and previous stents Stable at this time Qualifiers: Coronary Disease-Associated Artery/Lesion type: [place] artery [place] vs. transplanted heart: [place] heart Associated angina: without angina Qualified Code(s): I25.10 - Atherosclerotic heart disease of [place] coronary artery without angina pectoris (9) Bradycardia Current Visit: No Status: Resolved Assessment and plan: Heart rate has remained above 60 (10) COPD (chronic obstructive pulmonary disease) Current Visit: No Status: Chronic Assessment and plan: COPD, stable Patient may have chronic hypercarbic state We will do overnight O2/BiPAP qualification tonight Qualifiers: COPD type: chronic bronchitis Chronic bronchitis type: simple Qualified Code(s): J41.0 - Simple chronic bronchitis (11) DVT prophylaxis Current Visit: Yes Status: Acute Assessment and plan: Subcutaneous Lovenox held due to severe anemia requiring transfusion - Subjective Interval history: The patient is much more alert today, however he does remember speaking with me yesterday. He says that he is feeling much better, and that she is breathing much easier as well. He denies any chest pain shortness of breath. - Constitutional Vitals: Temp Pulse Resp BP Pulse Ox 97.7 F 66 16 113/60 96 06/04/17 11:07 06/04/17 11:07 06/04/17 11:07 06/04/17 11:07 06/04/17 11:07 General appearance: Present: cooperative, mild distress, answers questions appropriately - Head Head exam: Present: atraumatic, normocephalic - Eye Eye exam: Present: PERRL, conjuntiva pink, sclera anicteric Pupils: Present: PERRL - Neck Neck exam general surgery: Present: supple, trachea midline. Absent: lymphadenopathy - Respiratory Respiratory exam: Present: CTAB. Absent: accessory muscle use, rales, rhonchi, wheezes - Cardiovascular Cardiovascular exam: Present: irregular rhythm, +S1, +S2. Absent: diastolic murmur, gallop, rubs, systolic murmur - GI/Abdominal GI/Abdominal exam: Present: normal bowel sounds, soft, no peritoneal signs. Absent: distended, tenderness - Extremities Exam Extremities exam: Present: normal capillary refill, tenderness, warm, radial pulses palpable and symmetrical. Absent: calf tenderness, cyanotic, pedal edema Additional comments: Left lower extremity status post hip replacement revision, pulses 2+ dorsal pedis and posterior tibialis - Neurological Exam Neurological exam: Present: CN II-XII intact, oriented X3, no focal deficits. Absent: pronater drift, facial droop, speech deficit - Skin Skin exam: Present: dry, intact Internal Medicine: Result - Labs CBC & Chem 7: 06/04/17 13:48 06/04/17 13:48 Labs: Short CBC 06/03/17 Range/Units 19:55 WBC 9.2 (4.3-11.1) K/mcL Hgb 8.1 L (12.9-16.9) g/dL Hct 24.7 L (37.5-50.1) % Plt Count 99 L (140-400) K/mcL Neutrophils # 7.4 (1.6-8.9) K/mcL BMP 06/03/17 19:55 Sodium 132 L Potassium 4.6 H Chloride 105 Carbon Dioxide 18 L BUN 30 H Creatinine 1.47 H Glucose 131 H Calcium 7.8 L Cardiac Enzymes 06/03/17 06/04/17 06/04/17 Range/Units 19:55 00:54 06:02 Troponin I 0.06 H* 0.08 H* 0.05 H* (0-0.03) ng/mL Liver Function 06/03/17 Range/Units 19:55 Total Bilirubin 0.3 (0.2-1.2) mg/dL AST 118 H (5-34) Units/L ALT 47 (0-55) Units/L Alkaline Phosphatase 52 (38-126) Units/L Albumin 3.0 L (3.5-5.0) g/dL Urine 06/04/17 Range/Units 01:30 Urine Color Yellow (Yellow) Urine Clarity Clear (Clear) Urine pH 6.0 (5.0-8.0) pH Units Ur Specific [place] 1.020 (1.010-1.025) Urine Protein Negative (Neg-Trace) mg/dL Urine Glucose (UA) Normal (Normal) mg/dL - ABG Interpretation ABG results: ABG ABG pH 7.37 pH Units (7.32-7.45) 06/04/17 04:21 ABG pCO2 34 mmHg (35-45) L 06/04/17 04:21 ABG pO2 69 mmHg (85-104) L 06/04/17 04:21 ABG O2 Saturation 93 % (95-98) L 06/04/17 04:21 PT/INR, D-dimer PT 13.0 Seconds (9.4-12.1) H 06/03/17 13:17 - Impressions Impressions Hip X-Ray 06/04/17 07:52 IMPRESSION: Soft tissue gas adjacent to the left hip and proximal left femur presumably related to recent revision of superior portion of the lateral fixation plate. Stable appearance of the hardware of the left hip prosthesis and fixation plate left femur. D/ / Daron Sanchez MD / Daron Sanchez MD Interpreting Provider: Daron Sanchez MD - VTE Documentation of Mechanical Device: Venous foot pump, device Consult Discharge Plan - Plan [facility] Care Provider[facility] - <Jorge Goetz - Last Filed: 06/04/17 20:23> Date of Encounter: 06/04/17 - Assessment and plan (1) Respiratory failure Current Visit: Yes Status: Acute Qualifiers: Chronicity: acute Respiratory failure complication: hypoxia and hypercapnia Qualified Code(s): J96.01 - Acute respiratory failure with hypoxia ; J96.02 - Acute respiratory failure with hypercapnia; J96.02 - Acute respiratory failure with hypercapnia; J96.02 - Acute respiratory failure with hypercapnia (2) Accidental overdose Current Visit: Yes Status: Resolved Qualifiers: Encounter type: subsequent encounter Qualified Code(s): T50.901D - Poisoning by unspecified drugs, medicaments and biological substances, accidental (unintentional), subsequent encounter (3) Dislocation of internal left hip prosthesis, initial encounter Current Visit: Yes Status: Acute (4) Hypotension Current Visit: Yes Status: Resolved Qualifiers: Hypotension type: unspecified hypotension type Qualified Code(s): I95.9 - Hypotension, unspecified (5) Near syncope Current Visit: Yes Status: Acute (6) Atrial fibrillation Current Visit: No Status: Chronic Qualifiers: Atrial fibrillation type: chronic Qualified Code(s): I48.2 - Chronic atrial fibrillation (7) CAD (coronary artery disease) Current Visit: No Status: Chronic Qualifiers: Coronary Disease-Associated Artery/Lesion type: [place] artery [place] vs. transplanted heart: [place] heart Associated angina: without angina Qualified Code(s): I25.10 - Atherosclerotic heart disease of [place] coronary artery without angina pectoris (8) COPD (chronic obstructive pulmonary disease) Current Visit: No Status: Chronic Qualifiers: COPD type: chronic bronchitis Chronic bronchitis type: simple Qualified Code(s): J41.0 - Simple chronic bronchitis (9) Diabetes Current Visit: No Status: Chronic Qualifiers: Diabetes mellitus type: type 2 Diabetes mellitus complication status: without complication Diabetes mellitus prison insulin use: unspecified prison insulin use status Qualified Code(s): E11.9 - Type 2 diabetes mellitus without complications - Constitutional Vitals: Temp Pulse Resp BP Pulse Ox 97.5 F L 68 16 124/74 98 06/04/17 19:03 06/04/17 19:03 06/04/17 19:03 06/04/17 19:03 06/04/17 19:03 Internal Medicine: Result - Labs CBC & Chem 7: 06/04/17 13:48 06/04/17 13:48 Labs: Short CBC 06/04/17 Range/Units 13:48 WBC 6.9 (4.3-11.1) K/mcL Hgb 6.9 L (12.9-16.9) g/dL Hct 21.4 L (37.5-50.1) % Plt Count 86 L (140-400) K/mcL Neutrophils # 6.3 (1.6-8.9) K/mcL BMP 06/03/17 06/04/17 19:55 13:48 Sodium 132 L 133 L Potassium 4.6 H 4.6 H Chloride 105 106 Carbon Dioxide 18 L 19 BUN 30 H 22 Creatinine 1.47 H 1.15 Glucose 131 H 317 H Calcium 7.8 L 7.6 L Cardiac Enzymes 06/03/17 06/04/17 06/04/17 Range/Units 19:55 00:54 06:02 Troponin I 0.06 H* 0.08 H* 0.05 H* (0-0.03) ng/mL Liver Function 06/03/17 Range/Units 19:55 Total Bilirubin 0.3 (0.2-1.2) mg/dL AST 118 H (5-34) Units/L ALT 47 (0-55) Units/L Alkaline Phosphatase 52 (38-126) Units/L Albumin 3.0 L (3.5-5.0) g/dL Urine 06/04/17 Range/Units 01:30 Urine Color Yellow (Yellow) Urine Clarity Clear (Clear) Urine pH 6.0 (5.0-8.0) pH Units Ur Specific [place] 1.020 (1.010-1.025) Urine Protein Negative (Neg-Trace) mg/dL Urine Glucose (UA) Normal (Normal) mg/dL - ABG Interpretation ABG results: ABG ABG pH 7.37 pH Units (7.32-7.45) 06/04/17 04:21 ABG pCO2 34 mmHg (35-45) L 06/04/17 04:21 ABG pO2 69 mmHg (85-104) L 06/04/17 04:21 ABG O2 Saturation 93 % (95-98) L 06/04/17 04:21 PT/INR, D-dimer PT 13.0 Seconds (9.4-12.1) H 06/03/17 13:17 - Impressions Impressions Hip X-Ray 06/04/17 07:52 IMPRESSION: Soft tissue gas adjacent to the left hip and proximal left femur presumably related to recent revision of superior portion of the lateral fixation plate. Stable appearance of the hardware of the left hip prosthesis and fixation plate left femur. D/ / Daron Sanchez MD / Daron Sanchez MD Interpreting Provider: Daron Sanchez MD - Attending Attestation I examined this patient and my medical decision-making was reviewed with the Resident Physician on 06/04/17. I agree with the documented findings, disposition and treatment plan as described except to the extent set forth below. Mr Huddleston is currently admitted for acute encephalopathy and fall. He had dislocated L hip. He remains moderate to high risk due to potential for worsening clinical status. Mr Huddleston is post op. He seems somewhat confused. He has been hypoxic off oxygen as well. No fever or chills. Exam alert. Comfortable Heart reg Lungs diminished Abd soft I/P 1. Hypoxia 2. Encephalopathy Further diagnoses and plan as above.
[2017-06-04] MEDS ORDERED: Insulin LISPRO 300 UNITS/3 ML VIAL SQ SCH (12:00)
[2017-06-04 14:10] LABS: Basophils % 0.1 %; Eosinophils % 0.1 %; Hematocrit 21.4 % (37.5-50.1); Hemoglobin 6.9 g/dL (12.9-16.9); Lymphocytes # 0.3 K/mcL (0.6-4.6); Lymphocytes % 3.8 %; Mean Corpuscular HGB Conc 32.2 g/dL (31.6-35.5); Mean Corpuscular Hemoglobin 29.6 pg (28.0-33.3); Mean Corpuscular Volume 91.8 fL (83.0-100.0); Mean Platelet Volume 10.2 fL (9.4-12.4); Monocytes # 0.3 K/mcL (0.0-1.3); Monocytes % 3.6 %; Neutrophils # 6.3 K/mcL (1.6-8.9); Red Blood Count 2.33 M/mcL (4.19-5.50); Red Cell Distribution Width 16.9 % (11.5-14.5); Segmented Neutrophils % 91.4 %
[2017-06-04 14:11] LABS: Platelet Count 86 K/mcL (140-400)
[2017-06-04 14:31] LABS: BUN/Creatinine Ratio 19 (6-26); Blood Urea Nitrogen 22 mg/dL (8-26); Calcium 7.6 mg/dL (8.6-10.8); Carbon Dioxide 19 mEq/L (19-29); Chloride 106 mEq/L (98-109); Glucose 317 mg/dL (70-99); Osmolality,Calculated 291 (280-300); Potassium 4.6 mEq/L (3.5-4.5); Sodium 133 mEq/L (136-145); eGFR For African Americans > 60 (> 60); eGFR For Non-African Americans > 60 (> 60)
--- NOTE | 2017-06-04 16:00 | Event Note ---
Date of Encounter: 06/04/17 Time of Encounter: 13:15 Patient is POD#0 of Left revision femoral head length of total hip for dislocated left prosthetic hip (06/04/17) Patient alert when seen at bedside. He is not oriented to time. He is confused regarding answering questions regarding pain. He is recently out of surgery at time of exam. He is resting comfortably in bed. He will receive hip Tscope brace to help prevent repeat dislocation. Discussed patient with nursing staff regarding confusion and lab abnormalities. Hospitalist following for medical conditions. Will be available to help address concerns as well as Dr. Cannon. Discussed with DWAYNE and GERARDO total joint nurse navigator - patient likely will need to go to [facility] for rehab once stable. Will begin continuity paperwork for patient.
--- NOTE | 2017-06-04 16:14 | Physician Discharge Referral ---
<Breana Gomez L - Last Filed: 06/05/17 13:40> ExtendedCare Referral Info Provider in Charge: Provider in Charge after Transfer: PCP Institutional Level of Care: Skilled - Diagnosis (1) Painful orthopaedic hardware Priority: Primary Status: Chronic (2) Status post revision of total hip Priority: Primary Status: Acute (3) Dislocation of internal left hip prosthesis, initial encounter Priority: Primary Status: Acute Prognosis: Good Aware of Diagnosis: Patient Aware of Prognosis: Patient - Transfer Medications Prescriptions: Doxycycline 100 mg PO BID #14 capsule Doxycycline Hyclate 100 mg PO BID 7 Days #14 tablet Home Medications: Furosemide [Lasix] 20 mg PO Q48H 04/13/15 [History] GlipiZIDE [Glucotrol] 7.5 mg PO BID 04/13/15 [History] Atorvastatin [Lipitor] 10 mg PO HS 10/16/15 [History] Amiodarone [Cordarone] 200 mg PO DAILY 02/08/16 [History] Lactobacillus [Culturelle] 1 each PO DAILY 02/08/16 [History] Albuterol Sulfate [Albuterol Inhaler] 2 puff IH QID PRN 06/01/17 [History] Brimonidine Tartrate [Alphagan P] 1 drop BOTH EYES TID 06/01/17 [History] Cholecalciferol (Vitamin D3) [Vitamin D] 2,000 unit PO DAILY 06/01/17 [History] Enoxaparin [Lovenox] 120 mg SQ DAILY 06/01/17 [History] Furosemide [Lasix] 40 mg PO Q48H 06/01/17 [History] Ipratropium/Albuterol Neb [Duoneb] 3 ml IH QID 06/01/17 [History] Levothyroxine [Synthroid] 50 mcg PO QAM 06/01/17 [History] Losartan Potassium [Cozaar] 100 mg PO DAILY 06/01/17 [History] Metformin HCl [Glucophage] 1,000 mg PO BID 06/01/17 [History] Metoprolol Succinate 25 mg PO DAILY 06/01/17 [History] Oxycodone HCl 20 mg PO Q12H 06/01/17 [History] Pregabalin [Lyrica] 200 mg PO BID 06/01/17 [History] Sertraline [Zoloft] 100 mg PO QPM 06/01/17 [History] Warfarin [Coumadin] 2 mg PO TH 06/01/17 [History] Warfarin [Coumadin] 4 mg PO [id number] 06/01/17 [History] amLODIPine [Norvasc] 5 mg PO DAILY 06/01/17 [History] Bisacodyl [Dulcolax] 5 mg PO BID 06/03/17 [History] Clopidogrel [Plavix] 75 mg PO DAILY 06/03/17 [History] Magnesium Hydroxide [Milk of Magnesia] 2,400 mg PO HS PRN 06/03/17 [History] Polyethylene Glycol 3350 [MiraLAX] 17 gm PO BID PRN 06/03/17 [History] Potassium Chloride [Klor-Con 10] 10 meq PO DAILY 06/03/17 [History] Sennosides/Docusate Sodium [Senna Plus] 2 each PO TID 06/03/17 [History] Tiotropium [Spiriva] 18 mcg IH 0700 06/03/17 [History] Travoprost [Travatan Z] 1 drop BOTH EYES HS 06/03/17 [History] traZODone [TraZODone] 50 mg PO HS PRN 06/03/17 [History] Doxycycline 100 mg PO BID #14 capsule 06/05/17 [Rx] Doxycycline Hyclate 100 mg PO BID 7 Days #14 tablet 06/05/17 [Rx] Allergies/Adverse Reactions: 3 Allergy/AdvReac Type Severity Reaction Status Date / Time azithromycin Allergy See Verified 06/01/17 16:50 Comments ceftriaxone Allergy See Verified 06/01/17 16:50 Comments morphine Allergy See Verified 06/01/17 16:50 Comments sulfamethoxazole AdvReac See Verified 06/01/17 16:50 [From Bactrim] Comments trimethoprim [From Bactrim] AdvReac See Verified 06/01/17 16:50 Comments - Respiratory Orders None Smoking Cessation: Smoking cessation has been advised. For more information, call the [place] Tobacco Quit Line at 1-505-VXYN-NOW. - Lab Orders Lab Orders: CBC - Rehabiliation Orders Other: Change dressing to Left Hip TID due to saturation. Cleanse wound thoroughly. Apply 4x4, ABD with Medipore tape. CERTIFICATION: I certify that the transfer of the above named patient to an Extended Care Facility is necessary for the continuing treatment of the diagnosis listed. The above information is true and accurate reflection of patient's current condition. Confidential - Redisclosure prohibited without a patient's written consent. <Birdie Savage E - Last Filed: 06/05/17 16:24> [facility] Referral Info [facility] - Diagnosis (1) Status post revision of total hip Priority: Primary Status: Acute (2) Dislocation of internal left hip prosthesis, initial encounter Priority: Primary Status: Acute (3) Anticoagulant long-term use Priority: Secondary Status: Chronic (4) Painful orthopaedic hardware Priority: Primary Status: Chronic Expected Duration of Placement: less than 30 days Prognosis: Good Aware of Diagnosis: Patient Aware of Prognosis: Patient - Respiratory Orders Smoking Cessation: Smoking cessation has been advised. For more information, call the [employer] Tobacco Quit Line at 7-978-QCZB-NOW. - Ancillary Orders May use pressure relief devices daily prn, May go on GEORGINA w/family/respon libertarian w /meds at nurse discretion PRN, May consult with Dentist, Job Hand, Holistic Nutritionist PRN - Mobility Orders Chair, Ambulate (with walker) - Rehabiliation Orders Rehab Orders: Evaluation for Physical Therapy, Evaluation for Occupational Therapy Other: Total Hip replacement Precautions Apply cold therapy 3-6x/day for 20 minutes at a time. Encourage ambulation with walker throughout the day and incentive spirometer 10x /hour. Elevate affected extremity as tolerated. Brace: Wear hip abduction pillow when laying/sleeping; wear hip TSCOPE brace at all times except when bathing - exercise caution to prevent repeat hip dislocation when out of brace. - Treatments Skin tear care topically daily PRN per policy List/Other: Change dressing to Left Hip TID due to saturation. Cleanse wound thoroughly. Apply 4x4, ABD with Medipore tape. [place] in place, plan to remove at post-operative day #14-16. - Diet Orders Regular CERTIFICATION: I certify that the transfer of the above named patient to an Extended Care Facility is necessary for the continuing treatment of the diagnosis listed. The above information is true and accurate reflection of patient's current condition. Confidential - Redisclosure prohibited without a patient's written consent.
[2017-06-04] MEDS ORDERED: 0.9 % Sodium Chloride 250 ML ONE (16:51)
[2017-06-04] MEDS: Pregabalin 50 MG CAPSULE PO SCH (20:12)
[2017-06-05] MEDS: Insulin LISPRO 300 UNITS/3 ML VIAL SQ SCH ×5 (00:33→20:46)
[2017-06-05] MEDS: Latanoprost 2.5 ML BOTTLE BOTH EYES SCH ×2 (00:34→20:41)
[2017-06-05] MEDS ORDERED: 0.9 % Sodium Chloride 250 ML ONE (00:44)
[2017-06-05 05:55] LABS: Hematocrit 24.7 % (37.5-50.1); Hemoglobin 8.6 g/dL (12.9-16.9)
[2017-06-05 05:59] LABS: VBG HCO3 22 mEq/L (21-27); VBG PCO2 43 mmHg (41-51); VBG PH 7.32 pH Units (7.32-7.42); VBG PO2 133 mmHg (25-50)
[2017-06-05 06:04] LABS: BUN/Creatinine Ratio 20 (6-26); Blood Urea Nitrogen 18 mg/dL (8-26); Calcium 7.8 mg/dL (8.6-10.8); Carbon Dioxide 22 mEq/L (19-29); Chloride 108 mEq/L (98-109); Glucose 163 mg/dL (70-99); Osmolality,Calculated 283 (280-300); Potassium 4.5 mEq/L (3.5-4.5); Sodium 134 mEq/L (136-145); eGFR For African Americans > 60 (> 60); eGFR For Non-African Americans > 60 (> 60)
[2017-06-05] MEDS: *HR* Enoxaparin 30 MG/0.3 ML SYRINGE SQ SCH (06:13)
[2017-06-05] MEDS: Tiotropium 18 MCG inhalation IH SCH (08:05)
[2017-06-05] MEDS: Pantoprazole 40 MG VIAL IVP SCH (08:06)
[2017-06-05] MEDS: Ascorbic Acid 500 MG TABLET PO SCH ×2 (08:07→17:09)
[2017-06-05] MEDS: Multivit/Ca/Min/Fe/FA 1 TAB TABLET PO SCH (08:07)
[2017-06-05] MEDS: amLODIPine 5 MG TABLET PO SCH (08:07)
[2017-06-05] MEDS: Pregabalin 50 MG CAPSULE PO SCH ×2 (08:07→20:21)
[2017-06-05] MEDS: Lactobacillus 1 EACH CAP.SPRINK PO SCH (08:07)
[2017-06-05] MEDS: Cholecalciferol (D-3) 1,000 UNIT TABLET PO SCH (08:08)
[2017-06-05] MEDS: *HR* Amiodarone 200 MG TABLET PO SCH (08:08)
[2017-06-05] MEDS: Metoprolol XL (24 HR) Succ 25 MG TAB.ER.24H PO SCH (08:08)
--- NOTE | 2017-06-05 08:12 | Electrocardiograph Report ---
[address] [address] Test Date: 2017-06-03 Pat Name: Venu Huddleston Department: 103 Room: [facility] Gender: M [employer]: MOLLY : 1945 Requested By: Aye See Order Number: [id number] Reading MD: Clyde Kay MD Measurements Intervals Carbon Rate: 63 P: 173 SC: 316 QRS: 124 QRSD: 110 T: 19 QT: 466 QTc: 473 Interpretive Statements ELECTRONIC ATRIAL PACEMAKER First degree AV block INCOMPLETE RIGHT BUNDLE BRANCH BLOCK PROLONGED QT INTERVAL Electronically Signed On 06-05-2017 8:10:40 EDT by Clyde Kay MD
[2017-06-05] MEDS ORDERED: NON-FORMULARY MEDICATION 1 EACH EACH (Losartan Potassium [Cozaar] 100 MG) PO SCH (09:00)
[2017-06-05] MEDS ORDERED: NON-FORMULARY MEDICATION 1 EACH EACH (Potassium Chloride [Klor-Con 10] 10 MEQ) PO SCH (09:00)
[2017-06-05] MEDS: *HR* OxyCODONE Immed Rel 5 MG TABLET PO PRN ×2 (09:41→23:59)
--- NOTE | 2017-06-05 09:44 | Internal Med Progress Note ---
Addendum entered and electronically signed by Paolo Hurtado DO 06/05/17 14: 41: Addendum to A/P Thrombocytopenia: Concern for heparin-induced cytopenia, hit panel pending. Continue to monitor Original Note: <Paolo Hurtado - Last Filed: 06/05/17 13:24> Date of Encounter: 06/05/17 Time of Encounter: 06:10 - Assessment and plan (1) Respiratory acidosis Current Visit: Yes Status: Acute Assessment and plan: Hypercarbic Respiratory acid, resolved Patient is breathing easier, in no respiratory distress Patient did not qualify for BiPAP (2) Anemia Current Visit: Yes Status: Acute Assessment and plan: Acute anemia, likely secondary to intraoperative hemorrhage Hemoglobin increased to 8.6 following 2U PRBC in the evening Patient has no acute symptoms. Qualifiers: Other causes of anemia: acute posthemorrhagic Qualified Code(s): D62 - Acute posthemorrhagic anemia (3) Respiratory failure Current Visit: Yes Status: Acute Assessment and plan: Acute respiratory failure secondary to accidental overdose, resolved Patient resting easy, O2 saturation appropriate on room air We will continue to monitor continuous pulse ox Qualifiers: Chronicity: acute Respiratory failure complication: hypoxia and hypercapnia Qualified Code(s): J96.01 - Acute respiratory failure with hypoxia ; J96.02 - Acute respiratory failure with hypercapnia; J96.02 - Acute respiratory failure with hypercapnia; J96.02 - Acute respiratory failure with hypercapnia (4) Accidental overdose Current Visit: Yes Status: Resolved Assessment and plan: Accidental overdose of opioid medication, resolved Qualifiers: Encounter type: subsequent encounter Qualified Code(s): T50.901D - Poisoning by unspecified drugs, medicaments and biological substances, accidental (unintentional), subsequent encounter (5) Dislocation of internal left hip prosthesis, initial encounter Current Visit: Yes Status: Acute Assessment and plan: Dislocation of internal left hip prosthesis, status post ORIF Patient is managing pain on current regimen (6) Hypotension Current Visit: Yes Status: Resolved Assessment and plan: Patient's blood pressure has remained normotensive on home meds Qualifiers: Hypotension type: unspecified hypotension type Qualified Code(s): I95.9 - Hypotension, unspecified (7) Weakness Current Visit: Yes Status: Acute Assessment and plan: PT OT recommends transfer to swing bed upon medical clearance (8) CAD (coronary artery disease) Current Visit: No Status: Chronic Assessment and plan: Coronary artery disease status post CABG in 2012 and previous stents Stable at this time Qualifiers: Coronary Disease-Associated Artery/Lesion type: [place] artery [place] vs. transplanted heart: [place] heart Associated angina: without angina Qualified Code(s): I25.10 - Atherosclerotic heart disease of [place] coronary artery without angina pectoris (9) COPD (chronic obstructive pulmonary disease) Current Visit: No Status: Chronic Assessment and plan: COPD, stable Patient does not qualify for Overnight O2/BiPAP Qualifiers: COPD type: chronic bronchitis Chronic bronchitis type: simple Qualified Code(s): J41.0 - Simple chronic bronchitis (10) DVT prophylaxis Current Visit: Yes Status: Acute Assessment and plan: Subcutaneous Lovenox held due to severe anemia requiring transfusion - Subjective Interval history: The patient is feeling well this morning, has no acute complaints - Constitutional Vitals: Temp Pulse Resp BP Pulse Ox 98.5 F 98 16 128/76 98 06/05/17 06:40 06/05/17 06:40 06/05/17 08:20 06/05/17 06:40 06/05/17 08:20 General appearance: Present: cooperative, mild distress, answers questions appropriately Internal Medicine: Result - Labs CBC & Chem 7: 06/05/17 05:44 06/05/17 05:44 Labs: Short CBC 06/04/17 06/05/17 Range/Units 13:48 05:44 WBC 6.9 (4.3-11.1) K/mcL Hgb 6.9 L 8.6 L D (12.9-16.9) g/dL Hct 21.4 L 24.7 L (37.5-50.1) % Plt Count 86 L (140-400) K/mcL Neutrophils # 6.3 (1.6-8.9) K/mcL BMP 06/04/17 06/05/17 13:48 05:44 Sodium 133 L 134 L Potassium 4.6 H 4.5 Chloride 106 108 Carbon Dioxide 19 22 BUN 22 18 Creatinine 1.15 0.89 Glucose 317 H 163 H Calcium 7.6 L 7.8 L - ABG Interpretation ABG results: ABG ABG pH 7.37 pH Units (7.32-7.45) 06/04/17 04:21 ABG pCO2 34 mmHg (35-45) L 06/04/17 04:21 ABG pO2 69 mmHg (85-104) L 06/04/17 04:21 ABG O2 Saturation 93 % (95-98) L 06/04/17 04:21 PT/INR, D-dimer PT 13.0 Seconds (9.4-12.1) H 06/03/17 13:17 - Impressions Impressions Hip X-Ray 06/04/17 07:52 IMPRESSION: Soft tissue gas adjacent to the left hip and proximal left femur presumably related to recent revision of superior portion of the lateral fixation plate. Stable appearance of the hardware of the left hip prosthesis and fixation plate left femur. D/ / Daron Sanchez MD / Daron Sanchez MD Interpreting Provider: Daron Sanchez MD - VTE Documentation of Mechanical Device: Venous foot pump, device Consult Discharge Plan - Plan [facility]Primary Care Provider[facility] - Prescriptions: Doxycycline 100 mg PO BID #14 capsule Doxycycline Hyclate 100 mg PO BID 7 Days #14 tablet <Jorge Goetz - Last Filed: 06/05/17 19:07> Date of Encounter: 06/05/17 - Assessment and plan (1) Respiratory failure Current Visit: Yes Status: Acute Qualifiers: Chronicity: acute Respiratory failure complication: hypoxia and hypercapnia Qualified Code(s): J96.01 - Acute respiratory failure with hypoxia ; J96.02 - Acute respiratory failure with hypercapnia; J96.02 - Acute respiratory failure with hypercapnia; J96.02 - Acute respiratory failure with hypercapnia (2) Dislocation of internal left hip prosthesis, initial encounter Current Visit: Yes Status: Acute (3) Hypotension Current Visit: Yes Status: Resolved Qualifiers: Hypotension type: unspecified hypotension type Qualified Code(s): I95.9 - Hypotension, unspecified (4) Near syncope Current Visit: Yes Status: Resolved (5) Atrial fibrillation Current Visit: No Status: Chronic Qualifiers: Atrial fibrillation type: chronic Qualified Code(s): I48.2 - Chronic atrial fibrillation (6) CAD (coronary artery disease) Current Visit: No Status: Chronic Qualifiers: Coronary Disease-Associated Artery/Lesion type: [place] artery [place] vs. transplanted heart: [place] heart Associated angina: without angina Qualified Code(s): I25.10 - Atherosclerotic heart disease of [place] coronary artery without angina pectoris (7) COPD (chronic obstructive pulmonary disease) Current Visit: No Status: Chronic Qualifiers: COPD type: chronic bronchitis Chronic bronchitis type: simple Qualified Code(s): J41.0 - Simple chronic bronchitis (8) Diabetes Current Visit: No Status: Chronic Qualifiers: Diabetes mellitus type: type 2 Diabetes mellitus complication status: without complication Diabetes mellitus mcc insulin use: unspecified mcc insulin use status Qualified Code(s): E11.9 - Type 2 diabetes mellitus without complications (9) Acute metabolic encephalopathy Current Visit: Yes Status: Resolved - Constitutional Vitals: Temp Pulse Resp BP Pulse Ox 98.2 F 93 16 117/76 96 06/05/17 14:48 06/05/17 14:48 06/05/17 14:48 06/05/17 14:48 06/05/17 14:48 Internal Medicine: Result - Labs CBC & Chem 7: 06/05/17 05:44 06/05/17 05:44 Labs: Short CBC 06/05/17 Range/Units 05:44 Hgb 8.6 L D (12.9-16.9) g/dL Hct 24.7 L (37.5-50.1) % BMP 06/05/17 05:44 Sodium 134 L Potassium 4.5 Chloride 108 Carbon Dioxide 22 BUN 18 Creatinine 0.89 Glucose 163 H Calcium 7.8 L - ABG Interpretation ABG results: ABG ABG pH 7.37 pH Units (7.32-7.45) 06/04/17 04:21 ABG pCO2 34 mmHg (35-45) L 06/04/17 04:21 ABG pO2 69 mmHg (85-104) L 06/04/17 04:21 ABG O2 Saturation 93 % (95-98) L 06/04/17 04:21 PT/INR, D-dimer PT 13.3 Seconds (9.4-12.1) H 06/05/17 15:54 - Attending Attestation I examined this patient and my medical decision-making was reviewed with the Resident Physician on 06/05/17. I agree with the documented findings, disposition and treatment plan as described except to the extent set forth below. Mr Huddleston is currently admitted for acute L hip dislocation. He had resp failure and encephalopathy. He is to go to rehab soon. He remains moderate to high risk due to potential for worsening clinical status. Mr Huddleston is more oriented today. He is off oxygen right now. No CP or SOB. No fever or chills. Exam Alert. Comfortable Heart reg - distant Lungs clear now Abd soft I/P 1. Hypoxia 2. L hip dislocation Further diagnoses and plan as above. Anticipate d/c tomorrow.
--- NOTE | 2017-06-05 13:36 | Orthopedics Progress Note ---
Date of Encounter: 06/05/17 Time of Encounter: 08:00 - Assessment and Plan (1) Painful orthopaedic hardware Current Visit: No Status: Chronic (2) Status post revision of total hip Current Visit: No Status: Acute (3) Dislocation of internal left hip prosthesis, initial encounter Current Visit: Yes Status: Acute POD#2 - Patient doing well, A&O in bed, MS improved from yesterday, Pain controlled. Vitals stable. Afebrile. Plan: Continue in Hip T-scope brace , ranged 70 degrees. Change dressing and cleanse incision. Will check bandage again during PCR - consider starting Doxycycline 100mg BID if drianage persists with TID dressing changes. LE: WBAT D/C to ECF likely tomorrow* pending Auth and pending medical improvement Subjective Principal diagnosis: s/p Left Hip I&D, hardware exchange Interval history: POD#2 - Patient doing well, A&O in bed, MS improved from yesterday, Pain controlled. Vitals stable. Afebrile. LE: Minimal swelling, no erythema or ecchymosis noted. Dressing 50% saturated with serusanginous fluid No calf tenderness or warmth noted. ROM limited. NV intact distally. In Hip Tscope brace. Plan: Continue in Hip T-scope brace , ranged 70 degrees. Change dressing and cleanse incision. Will check bandage again during PCR - consider starting Doxycycline 100mg BID if drianage persists with TID dressing changes. LE: WBAT D/C to ECF likely tomorrow* pending Auth and pending medical improvement Objective Vital signs: Vital Signs Temp Pulse Resp BP Pulse Ox 06/05/17 09:57 98.7 F 87 16 119/66 95 06/05/17 08:20 16 98 06/05/17 06:40 98.5 F 98 16 128/76 98 06/05/17 04:55 98.7 F 63 15 97 06/05/17 03:40 99.2 F 60 16 115/62 100 06/05/17 01:21 99.0 F 60 16 100/54 97 06/05/17 01:06 98.7 F 62 14 107/66 98 06/04/17 23:42 98.6 F 66 16 111/57 98 06/04/17 21:15 99.4 F 76 15 124/76 95 06/04/17 20:39 97 06/04/17 19:03 97.5 F L 68 16 124/74 98 06/04/17 17:27 97.5 F L 69 16 111/66 95 06/04/17 17:12 97.6 F 63 14 128/68 06/04/17 15:44 97.7 F 60 18 134/74 95 06/04/17 13:57 97.6 F 65 13 110/64 98 Intake and Output 06/04/17 06/05/17 06/05/17 23:59 07:59 15:59 Intake Total 1300 / 1300 300 / 300 590 / 590 Output Total 1200 / 1200 300 / 300 425 / 425 Balance 100 / 100 0 / 0 165 / 165 Intake: IV Fluids 1000 / 1000 0.9 % Sodium Chloride 1,000 ML 1000 / 1000 @ 100 mls/hr IVC .Q10H [facility] Rx#: [id number] Oral 590 / 590 Blood Product 300 / 300 300 / 300 Rbcs Leuko Poor As-1 Unit 300 / 300 [id number] Rbcs Leuko Poor As-1 Unit 300 / 300 [id number] Output: Catheter 1200 / 1200 300 / 300 425 / 425 Other: Meal Breakfast Percent of Meal Consumed 60% Weight 96.8 kg Blood Glucose* 338 169 225 Patient Weight 06/05/17 23:59 Weight 96.8 kg Incision: draining, clean and dry - Labs CBC & BMP: 06/05/17 05:44 06/05/17 05:44 Labs: Abnormal lab results RBC 2.33 M/mcL (4.19-5.50) L 06/04/17 13:48 Hgb 8.6 g/dL (12.9-16.9) L D 06/05/17 05:44 Hct 24.7 % (37.5-50.1) L 06/05/17 05:44 RDW 16.9 % (11.5-14.5) H 06/04/17 13:48 Plt Count 86 K/mcL (140-400) L 06/04/17 13:48 Lymphocytes # 0.3 K/mcL (0.6-4.6) L 06/04/17 13:48 Nucleated RBCs/100 WBC 0.2 /100 WBC (0) H 06/03/17 19:55 PT 13.0 Seconds (9.4-12.1) H 06/03/17 13:17 ABG pCO2 34 mmHg (35-45) L 06/04/17 04:21 ABG pO2 69 mmHg (85-104) L 06/04/17 04:21 ABG HCO3 20 mEq/L (21-27) L 06/04/17 04:21 ABG O2 Saturation 93 % (95-98) L 06/04/17 04:21 ABG Base Excess -5 mEq/L (-2 to 3) L 06/04/17 04:21 VBG pO2 133 mmHg (25-50) H 06/05/17 05:55 Sodium 134 mEq/L (136-145) L 06/05/17 05:44 Glucose 163 mg/dL (70-99) H 06/05/17 05:44 POC Glucose 225 (58-89) H 06/05/17 11:11 Calcium 7.8 mg/dL (8.6-10.8) L 06/05/17 05:44 AST 118 Units/L (5-34) H 06/03/17 19:55 Troponin I 0.05 ng/mL (0-0.03) H* 06/04/17 06:02 Serum Total Protein 5.6 g/dL (6.0-8.3) L 06/03/17 19:55 Albumin 3.0 g/dL (3.5-5.0) L 06/03/17 19:55 - VTE Documentation of Mechanical Device: Venous foot pump, device Consult Discharge Plan - Plan [facility]: [facility] [Primary Care Provider] -
[2017-06-05 16:09] LABS: INR 1.2; Prothrombin Time 13.3 Seconds (9.4-12.1)
--- NOTE | 2017-06-05 16:14 | Event Note ---
Date of Encounter: 06/05/17 Time of Encounter: 12:30 Patient is POD#1 of Left revision femoral head length of total hip for dislocated left prosthetic hip (06/04/17) Patient alert when seen at bedside. He is oriented x 3 today. He is resting comfortably in bed. Hip Tscope brace to help prevent repeat dislocation in place. Discussed patient with nursing staff regarding confusion and lab abnormalities. Hospitalist following for medical conditions. Will be available to help address concerns as well as Dr. Cannon. Concern re: increasing drainage from incision. Pressure dressings to be applied and changed every 4 hours and as needed. Also will have patient do prophylactic antibiotic Doxycycline upon discharge given the drainage. Discussed with DWAYNE and GERARDO total joint nurse navigator - patient likely will need to go to [facility] for rehab once stable. Continuity started for patient.
[2017-06-05] MEDS: Doxycycline 100 MG CAPSULE PO SCH (20:21)
[2017-06-06 03:43] LABS: Basophils % 0.1 %; Eosinophils # 0.1 K/mcL (0.0-0.6); Eosinophils % 0.6 %; Hematocrit 24.4 % (37.5-50.1); Hemoglobin 8.3 g/dL (12.9-16.9); Immature Granulocytes % 1.9 % (0-4); Lymphocytes # 1.1 K/mcL (0.6-4.6); Lymphocytes % 14.1 %; Mean Corpuscular Hemoglobin 30.6 pg (28.0-33.3); Mean Platelet Volume 10.3 fL (9.4-12.4); Monocytes # 0.9 K/mcL (0.0-1.3); Monocytes % 10.5 %; Neutrophils # 5.9 K/mcL (1.6-8.9); Nucleated Red Blood Cells 0.6 /100 WBC (0); Platelet Count 107 K/mcL (140-400); Red Blood Count 2.71 M/mcL (4.19-5.50); Red Cell Distribution Width 16.7 % (11.5-14.5); Segmented Neutrophils % 72.8 %
[2017-06-06 03:56] LABS: BUN/Creatinine Ratio 18 (6-26); Blood Urea Nitrogen 17 mg/dL (8-26); Carbon Dioxide 23 mEq/L (19-29); Chloride 109 mEq/L (98-109); Glucose 124 mg/dL (70-99); Osmolality,Calculated 287 (280-300); Potassium 4.3 mEq/L (3.5-4.5); Sodium 137 mEq/L (136-145); eGFR For African Americans > 60 (> 60); eGFR For Non-African Americans > 60 (> 60)
[2017-06-06] MEDS: *HR* OxyCODONE Immed Rel 5 MG TABLET PO PRN ×2 (05:10→10:37)
[2017-06-06] MEDS: Insulin LISPRO 300 UNITS/3 ML VIAL SQ SCH ×2 (07:25→12:21)
[2017-06-06] MEDS: Tiotropium 18 MCG inhalation IH SCH (08:16)
[2017-06-06] MEDS: Cholecalciferol (D-3) 1,000 UNIT TABLET PO SCH (08:21)
[2017-06-06] MEDS: Ascorbic Acid 500 MG TABLET PO SCH (08:21)
[2017-06-06] MEDS: Lactobacillus 1 EACH CAP.SPRINK PO SCH (08:21)
[2017-06-06] MEDS: Doxycycline 100 MG CAPSULE PO SCH (08:21)
[2017-06-06] MEDS: amLODIPine 5 MG TABLET PO SCH (08:22)
[2017-06-06] MEDS: Multivit/Ca/Min/Fe/FA 1 TAB TABLET PO SCH (08:22)
[2017-06-06] MEDS: Metoprolol XL (24 HR) Succ 25 MG TAB.ER.24H PO SCH (08:22)
[2017-06-06] MEDS: *HR* Amiodarone 200 MG TABLET PO SCH (08:22)
[2017-06-06] MEDS: Pregabalin 50 MG CAPSULE PO SCH (08:22)
[2017-06-06] MEDS: Pantoprazole 40 MG VIAL IVP SCH (08:29)
--- NOTE | 2017-06-06 09:02 | Discharge Summary ---
Addendum entered and electronically signed by Paolo Hurtado DO 06/06/17 10: 03: Addendum: Metabolic encephalopathy Original Note: <Paolo Hurtado - Last Filed: 06/06/17 09:37> Date of Encounter: 06/06/17 Time of Encounter: 09:00 - Discharge Diagnosis (1) Respiratory failure Priority: Primary Status: Acute Qualifiers: Chronicity: acute Respiratory failure complication: hypoxia and hypercapnia Qualified Code(s): J96.01 - Acute respiratory failure with hypoxia ; J96.02 - Acute respiratory failure with hypercapnia; J96.02 - Acute respiratory failure with hypercapnia; J96.02 - Acute respiratory failure with hypercapnia (2) Respiratory acidosis Priority: Primary Status: Acute (3) Anemia Priority: Secondary Status: Acute Qualifiers: Other causes of anemia: acute posthemorrhagic Qualified Code(s): D62 - Acute posthemorrhagic anemia (4) Accidental overdose Priority: Secondary Status: Resolved Qualifiers: Encounter type: subsequent encounter Qualified Code(s): T50.901D - Poisoning by unspecified drugs, medicaments and biological substances, accidental (unintentional), subsequent encounter (5) Dislocation of internal left hip prosthesis, initial encounter Priority: Primary Status: Acute (6) Hypotension Priority: Secondary Status: Resolved Qualifiers: Hypotension type: unspecified hypotension type Qualified Code(s): I95.9 - Hypotension, unspecified (7) Weakness Priority: Secondary Status: Acute (8) CAD (coronary artery disease) Priority: Secondary Status: Chronic Qualifiers: Coronary Disease-Associated Artery/Lesion type: [place] artery [place] vs. transplanted heart: [place] heart Associated angina: without angina Qualified Code(s): I25.10 - Atherosclerotic heart disease of [place] coronary artery without angina pectoris (9) COPD (chronic obstructive pulmonary disease) Priority: Secondary Status: Chronic Qualifiers: COPD type: chronic bronchitis Chronic bronchitis type: simple Qualified Code(s): J41.0 - Simple chronic bronchitis (10) DVT prophylaxis Priority: Secondary Status: Resolved - Discharge Medications Prescriptions: OxyCODONE Immed Rel [Roxicodone 5 MG] 10 mg PO Q4HR PRN #9 tablet PRN Reason: MODERATE PAIN OxyCODONE Immed Rel [Roxicodone 5 MG] 5 mg PO Q4HR PRN #9 tablet PRN Reason: MILD PAIN 1-3 Ondansetron ODT [Zofran ODT] 4 mg SL Q6HR PRN #9 tab.rapdis PRN Reason: Nausea Doxycycline 100 mg PO BID #14 capsule Doxycycline Hyclate 100 mg PO BID 7 Days #14 tablet Home Medications: Furosemide [Lasix] 20 mg PO Q48H 04/13/15 [History] GlipiZIDE [Glucotrol] 7.5 mg PO BID 04/13/15 [History] Atorvastatin [Lipitor] 10 mg PO HS 10/16/15 [History] Amiodarone [Cordarone] 200 mg PO DAILY 02/08/16 [History] Lactobacillus [Culturelle] 1 each PO DAILY 02/08/16 [History] Albuterol Sulfate [Albuterol Inhaler] 2 puff IH QID PRN 06/01/17 [History] Brimonidine Tartrate [Alphagan P] 1 drop BOTH EYES TID 06/01/17 [History] Cholecalciferol (Vitamin D3) [Vitamin D3] 2,000 unit PO DAILY 06/01/17 [History] Enoxaparin [Lovenox] 120 mg SQ DAILY 06/01/17 [History] Furosemide [Lasix] 40 mg PO Q48H 06/01/17 [History] Levothyroxine [Synthroid] 50 mcg PO QAM 06/01/17 [History] Losartan Potassium [Cozaar] 100 mg PO DAILY 06/01/17 [History] Metformin HCl [Glucophage] 1,000 mg PO BID 06/01/17 [History] Metoprolol Succinate 25 mg PO DAILY 06/01/17 [History] Pregabalin [Lyrica] 200 mg PO BID 06/01/17 [History] Sertraline [Zoloft] 100 mg PO QPM 06/01/17 [History] Warfarin [Coumadin] 2 mg PO TH 06/01/17 [History] Warfarin [Coumadin] 4 mg PO [id number] 06/01/17 [History] amLODIPine [Norvasc] 5 mg PO DAILY 06/01/17 [History] Bisacodyl [Dulcolax] 5 mg PO BID 06/03/17 [History] Clopidogrel [Plavix] 75 mg PO DAILY 06/03/17 [History] Magnesium Hydroxide [Milk of Magnesia] 2,400 mg PO HS PRN 06/03/17 [History] Polyethylene Glycol 3350 [MiraLAX] 17 gm PO BID PRN 06/03/17 [History] Potassium Chloride [Klor-Con 10] 10 meq PO DAILY 06/03/17 [History] Tiotropium [Spiriva] 18 mcg IH 0700 06/03/17 [History] Travoprost [Travatan Z] 1 drop BOTH EYES HS 06/03/17 [History] traZODone [TraZODone] 50 mg PO HS PRN 06/03/17 [History] Doxycycline 100 mg PO BID #14 capsule 06/05/17 [Rx] Doxycycline Hyclate 100 mg PO BID 7 Days #14 tablet 06/05/17 [Rx] Docusate [Colace] 100 mg PO BID PRN capsule 06/06/17 [Rx] Doxycycline 100 mg PO BID capsule 06/06/17 [Rx] Ferrous Sulfate 325 mg PO BIDWM tablet 06/06/17 [Rx] Ipratropium/Albuterol Neb [Duoneb] 3 ml IH QID PRN #1 06/06/17 [Rx] MOM Conc [MILK OF MAGNESIA conc] 10 ml PO DAILY PRN ud.liq 06/06/17 [Rx] Ondansetron ODT [Zofran ODT] 4 mg SL Q6HR PRN #9 tab.rapdis 06/06/17 [Rx] OxyCODONE Immed Rel [Roxicodone 5 MG] 5 mg PO Q4HR PRN #9 tablet 06/06/17 [Rx] OxyCODONE Immed Rel [Roxicodone 5 MG] 10 mg PO Q4HR PRN #9 tablet 06/06/17 [Rx] Allergies/Adverse Reactions: 3 Allergy/AdvReac Type Severity Reaction Status Date / Time azithromycin Allergy See Verified 06/01/17 16:50 Comments ceftriaxone Allergy See Verified 06/01/17 16:50 Comments morphine Allergy See Verified 06/01/17 16:50 Comments sulfamethoxazole AdvReac See Verified 06/01/17 16:50 [From Bactrim] Comments trimethoprim [From Bactrim] AdvReac See Verified 06/01/17 16:50 Comments Date of admission: 06/03/17 18:42 [facility] Consults: 06/04/17 09:58 Consult to Nurse Navigator [CONS] Routine Comment: ortho navigator Consult to Occupational Therapy [CONS] Routine Comment: Evaluate, develop and implement POC Reason for Consult: total hip replacement Consult to Physical Therapy [CONS] Routine Comment: Evaluate, develop and implement POC Reason for Consult: total hip replacement Consult to Research And Development Chemist [CONS] Routine Reason for SW Consult: post op joint replacement RT Post Op Consult [CONS] Routine Discharging clinician: Paolo Hurtado Anticipated date of discharge: 06/06/17 - Patient Status Disposition: Transfer Inpatient Rehab Fac Condition: Undetermined Functional capacity at discharge: bed bound Overall status at discharge: patient is back to baseline - Discharge Instructions Follow Up With: Breana Gomez, PAC [Physician Gold Burnisher] - (Web requested 06/06/17) [facility],PC[facility] [Primary Care Provider] - Additional Instructions: Oxycodone 5 mg for mild to moderate pain Oxycodone 10 mg for severe pain Doxycycline 100 mg twice a day for 6 days Follow-up with orthopedic surgery as directed Discharge Instructions: Total Hip Replacement Please call [facility] ([phone]), your Primary Care Physician, or report to the Emergency Room if you have any of the following symptoms: Nausea, vomiting, fever greater that 101.5, swelling, chest pain, shortness of breath, increased pain/redness/drainage/odor for your incision site, numbness/ tingling, or any other concerning symptoms. ACTIVITY:Weight-bearing as tolerated for 8 weeks with hip dislocation precautions that physical therapy taught you. You may progress as tolerated under the guidance of your physical therapist. You do not need to sleep with a pillow between your legs. You can also seep on the operative side or on your stomach. MEDICATIONS: Upon discharge resume your home medications. Take all the medications as prescribed. Take a stool softener if taking narcotic pain medications. Stool softeners are only effective if you drink enough fluids. Drink 6-8 glass of water or fluids a day, unless this is not allowed for another health problem. Despite using stool softeners, if you haven't had a bowel movement in 3 days, please switch to a gentle laxative. Gentle laxatives are sold over the counter. You should have a bowel movement within 24 hours, if not call the office. You will be discharged from the hospital with a prescription for pain medication. You are encouraged to decrease the use of narcotic pain medication as tolerated. Should you require a refill, please call the office. [facility] prescribes narcotic pain medication for only 4-6 weeks after surgery. If you require pain medication beyond this time period, you may be referred to your Primary Care Physician or to the Pain Clinic for further evaluation. Plan ahead for refills on pain medication as many narcotics either need to be picked up at the office or mailed. It is best to call 48-72 hours in advance of needing a prescription refill so you don't run out of medication. To help control the post-operative pain, you may take NSAIDs (Aleve,Advil, Motrin, ibuprofen, naprosyn) or Tylenol as prescribed on the bottle in addition to the pain medication. ANTICOAGULATION (blood thinners): Continue your Aspirin, Lovenox or Coumadin as prescribed to help prevent a blood clot in the leg or in the lungs. As long as your incision remains dry and you tolerate the NSAIDs (Aleve, Advil, Motrin, Ibuprofen, Naprosyn), it is OK to use the NSAIDS while you are taking your anticoagulation medication. Should your incision start to drain, stop the NSAID and contact our office. Common symptoms of blood clot in the legs include: localized pain, swelling, calf tenderness, redness or discoloration of the skin. Blood clot in the lung symptoms include: shortness of breath, rapid pulse, sweating, and chest pain that worsens with deep breathing, coughing up blood, lightheadedness, feelings of anxiety. If you experience any of these symptoms notify your physician immediately, go to the emergency room, or if having trouble breathing, call 911. WOUND CARE: Leave the dressing on for 7 to 10days. You may change the dressing if it is saturated greater than 50%. Do not get the dressing wet at anytime. Wash your hands with antibacterial soap, rinse and dry prior to any wound care. If you have anahi the visiting nurse or rehab facility can remove the stapes 10-14 days after surgery and place steri-strips across the wound. Leave the steri-strips in place until they fall off on their own. You may let water from the shower run on top of the steri-strips. If you do not have a visiting nurse or rehab facility, you will need to return to the office at 10-14 days for the anahi to be removed. If you have itching or redness around the dressing call the office. FOLLOW-UP: Please follow up with your surgeon in the orthopedic clinic in 6 weeks from the day of surgery. If you have anahi that need to be removed, you will need to come back to the office in 10-14 days from the day of surgery. - Diet and Activity Activity: as per physical therapy, increase activity as tolerated Diet: diabetic diet, low salt diet Hospital course: Mr. Huddleston is a 72 year old male with history of hip replacement with revision 1 week ago, CAD status post CABG 2011, bradycardia status post AICD 2016, A. fib, COPD, diabetes mellitus type 2, and hypertension who was discharged from the hospital 06/02/17 following revision of left hip replacement. Following discharge from the hospital, the patient had a fall which resulted in dislocation of the new prosthesis. He chose not to go to the hospital last night, however the next day he was in extreme pain, so he called the orthopedic office and was allegedly told that he could take an extra oxycodone. His noticed that later that day he was increasingly somnolent, difficult to arouse. He was taken to the ED via EMS when he was unable to be aroused at which point he was given a dose of Narcan which did reverse the somnolence. Blood gas demonstrated acidosis with hypercarbic component, and the patient was not compensating adequately with respiration. He was admitted for fluids and BiPAP which she responded appropriately to. He regained baseline alertness overnight , and was able to undergo open reduction internal fixation of the prosthesis. His respiratory status has returned to baseline, normotensive. He is stable for discharge to rehabilitation facility with pain medications PRN and 6 more days of antibiotics. - Time Spent with Patient Total time spent providing and/or coordinating discharge services: - Constitutional Vitals: Temp Pulse Resp BP Pulse Ox 99.0 F 63 16 126/63 92 06/06/17 07:02 06/06/17 07:02 06/06/17 07:02 06/06/17 07:02 06/06/17 07:02 General appearance: Present: cooperative, mild distress, answers questions appropriately - VTE Documentation of Mechanical Device: Venous foot pump, device <Jorge Goetz - Last Filed: 06/06/17 17:33> Date of Encounter: 06/06/17 - Discharge Diagnosis (1) Respiratory failure Status: Resolved Qualifiers: Chronicity: acute Respiratory failure complication: hypoxia and hypercapnia Qualified Code(s): J96.01 - Acute respiratory failure with hypoxia ; J96.02 - Acute respiratory failure with hypercapnia; J96.02 - Acute respiratory failure with hypercapnia; J96.02 - Acute respiratory failure with hypercapnia (2) Dislocation of internal left hip prosthesis, initial encounter Status: Acute (3) Hypotension Status: Resolved Qualifiers: Hypotension type: unspecified hypotension type Qualified Code(s): I95.9 - Hypotension, unspecified (4) Near syncope Priority: Secondary Status: Resolved (5) Atrial fibrillation Priority: Secondary Status: Chronic Qualifiers: Atrial fibrillation type: chronic Qualified Code(s): I48.2 - Chronic atrial fibrillation (6) CAD (coronary artery disease) Status: Chronic Qualifiers: Coronary Disease-Associated Artery/Lesion type: [place] artery [place] vs. transplanted heart: [place] heart Associated angina: without angina Qualified Code(s): I25.10 - Atherosclerotic heart disease of [place] coronary artery without angina pectoris (7) COPD (chronic obstructive pulmonary disease) Status: Chronic Qualifiers: COPD type: chronic bronchitis Chronic bronchitis type: simple Qualified Code(s): J41.0 - Simple chronic bronchitis (8) Diabetes Priority: Secondary Status: Chronic Qualifiers: Diabetes mellitus type: type 2 Diabetes mellitus complication status: without complication Diabetes mellitus long lines operator insulin use: unspecified correction insulin use status Qualified Code(s): E11.9 - Type 2 diabetes mellitus without complications (9) Acute metabolic encephalopathy Priority: Secondary Status: Resolved Date of admission: 06/03/17 18:42 [facility] Consults: 06/04/17 09:58 Consult to Nurse Navigator [CONS] Routine Comment: ortho navigator Consult to Occupational Therapy [CONS] Routine Comment: Evaluate, develop and implement POC Reason for Consult: total hip replacement Consult to Physical Therapy [CONS] Routine Comment: Evaluate, develop and implement POC Reason for Consult: total hip replacement Consult to Research And Development Chemist [CONS] Routine Reason for SW Consult: post op joint replacement RT Post Op Consult [CONS] Routine Hospital course: Mr. Huddleston is a 72 year old male - Time Spent with Patient Total time spent providing and/or coordinating discharge services: 37min - Constitutional Vitals: Temp Pulse Resp BP Pulse Ox 99.6 F 63 18 114/61 91 06/06/17 11:50 06/06/17 11:50 06/06/17 11:50 06/06/17 11:50 06/06/17 11:50 - Attending Attestation I examined this patient and my medical decision-making was reviewed with the Resident Physician on 06/06/17. I agree with the documented findings, disposition and treatment plan as described except to the extent set forth below. Mr Huddleston has been admitted for acute encephalopathy and hypercarbic resp failure related to meds as well as for dislocated L hip. He is now alert and oriented and to go to SNF. He is afebrile with stable vitals. Exam Alert. Comfortable Heart not tachy No wheeze Plan D/C to SNF.
[2017-06-06 11:57] VITALS: BP 114/61
== END 2017-06-06 12:55 | DRG 907 ==
LOC: EMEROO 12:55 → 3NENU 12:55 → 2NNU 18:22 → SUATTDRO 18:42 → 3NENU 06-04 08:44
PROVIDERS: ADMIT Hospitalist; ATTEND Internal Medicine

== ENCOUNTER 2017-06-07 19:48 | Inpatient (IN) ==
--- NOTE | 2017-06-07 20:34 | Emergency Department Note ---
Disposition Clinical Impression: CHF exacerbation Qualifiers: Congestive heart failure type: unspecified congestive heart failure type Qualified Code(s): I50.9 - Heart failure, unspecified Anemia Qualifiers: Anemia type: unspecified type Qualified Code(s): D64.9 - Anemia, unspecified Disposition: Admitted As Inpatient Condition: Fair [facility] Care Provider[facility] - Forms: ED Satisfaction Letter Time of Disposition: 20:52 General Adult HPI - General Chief complaint: ED Extremity Problem,Nontraumatic Stated complaint: 'broke hip" Source: EMS Limitations: physical limitation Nursing Notes Reviewed: Yes Vital Signs Reviewed: Yes - History of Present Illness HPI Narrative: 72-year-old male presenting to the emergency department with chief complaint of fluid overload. Patient recently had hip replacement surgery on with Dr. Cannon. Patient was placed in [facility] for rehabilitation. Family is concerned that the patient has not been getting his medications as prescribed including his Lasix and that he is now holding on to fluids. Patient states he has had severe swelling especially in his testicles recently and has become very painful. He states it is difficult for him to move around and he has not been getting good physical therapy to his rehabilitation center. Patient states he hurts all over but has no specific complaints at this time. Denies any fever, chest pain but does say he does have increased shortness of breath Pain Scale: 9 - Related Data Home Medications Medication Instructions Recorded Confirmed Furosemide [Lasix] 20 mg PO Q48H 04/13/15 06/03/17 GlipiZIDE [Glucotrol] 7.5 mg PO BID 04/13/15 06/03/17 Atorvastatin [Lipitor] 10 mg PO HS 10/16/15 06/03/17 Amiodarone [Cordarone] 200 mg PO DAILY 02/08/16 06/03/17 Lactobacillus [Culturelle] 1 each PO DAILY 02/08/16 06/03/17 Albuterol Sulfate [Albuterol 2 puff IH QID PRN 06/01/17 06/03/17 Inhaler] Brimonidine Tartrate [Alphagan P] 1 drop BOTH EYES TID 06/01/17 06/03/17 Cholecalciferol (Vitamin D3) 2,000 unit PO DAILY 06/01/17 06/03/17 [Vitamin D3] Enoxaparin [Lovenox] 120 mg SQ DAILY 06/01/17 06/03/17 Furosemide [Lasix] 40 mg PO Q48H 06/01/17 06/03/17 Levothyroxine [Synthroid] 50 mcg PO QAM 06/01/17 06/03/17 Losartan Potassium [Cozaar] 100 mg PO DAILY 06/01/17 06/03/17 Metformin HCl [Glucophage] 1,000 mg PO BID 06/01/17 06/03/17 Metoprolol Succinate 25 mg PO DAILY 06/01/17 06/03/17 Pregabalin [Lyrica] 200 mg PO BID 06/01/17 06/03/17 Sertraline [Zoloft] 100 mg PO QPM 06/01/17 06/03/17 Warfarin [Coumadin] 2 mg PO TH 06/01/17 06/03/17 Warfarin [Coumadin] 4 mg PO SUMOTUWEFRSA 06/01/17 06/03/17 amLODIPine [Norvasc] 5 mg PO DAILY 06/01/17 06/03/17 Bisacodyl [Dulcolax] 5 mg PO BID 06/03/17 06/03/17 Clopidogrel [Plavix] 75 mg PO DAILY 06/03/17 06/03/17 Magnesium Hydroxide [Milk of 2,400 mg PO HS PRN 06/03/17 06/03/17 Magnesia] Polyethylene Glycol 3350 [MiraLAX] 17 gm PO BID PRN 06/03/17 06/03/17 Potassium Chloride [Klor-Con 10] 10 meq PO DAILY 06/03/17 06/03/17 Tiotropium [Spiriva] 18 mcg IH 0700 06/03/17 06/03/17 Travoprost [Travatan Z] 1 drop BOTH EYES HS 06/03/17 06/03/17 traZODone [TraZODone] 50 mg PO HS PRN 06/03/17 06/03/17 Previous Rx's Medication Instructions Recorded Doxycycline 100 mg PO BID #14 capsule 06/05/17 Doxycycline Hyclate 100 mg PO BID 7 Days #14 tablet 06/05/17 Docusate [Colace] 100 mg PO BID PRN capsule 06/06/17 Doxycycline 100 mg PO BID capsule 06/06/17 Ferrous Sulfate 325 mg PO BIDWM tablet 06/06/17 Ipratropium/Albuterol Neb [Duoneb] 3 ml IH QID PRN #1 06/06/17 MOM Conc [MILK OF MAGNESIA conc] 10 ml PO DAILY PRN ud.liq 06/06/17 Ondansetron ODT [Zofran ODT] 4 mg SL Q6HR PRN #9 tab.rapdis 06/06/17 OxyCODONE Immed Rel [Roxicodone 5 5 mg PO Q4HR PRN #9 tablet 06/06/17 MG] OxyCODONE Immed Rel [Roxicodone 5 10 mg PO Q4HR PRN #9 tablet 06/06/17 MG] Allergies Allergy/AdvReac Type Severity Reaction Status Date / Time azithromycin Allergy See Verified 06/01/17 16:50 Comments ceftriaxone Allergy See Verified 06/01/17 16:50 Comments morphine Allergy See Verified 06/01/17 16:50 Comments sulfamethoxazole AdvReac See Verified 06/01/17 16:50 [From Bactrim] Comments trimethoprim [From Bactrim] AdvReac See Verified 06/01/17 16:50 Comments All systems ED: reviewed and negative except as stated. Constitutional: Reports: weakness. Denies: fever, chills Eyes: Reports: as per HPI ENT ED: Reports: as per HPI Cardiovascular: Denies: chest pain, palpitations Respiratory: Reports: dyspnea. Denies: cough, wheezes Gastrointestinal: Denies: abdominal pain, nausea, vomiting Genitourinary: Reports: as per HPI Musculoskeletal: Reports: as per HPI Integumentary: Reports: as per HPI Neurological: Reports: as per HPI Psychiatric: Reports: as per HPI Endocrine: Reports: as per HPI Hematological/Lymphatic: Reports: as per HPI Allergic/Immunologic: Reports: as per HPI Past Medical History - Past Medical History Attestation: Yes The following information was validated with the patient. Medical history: Reports: atrial fibrillation, CHF, COPD, coronary artery disease, CVA, DVT, diabetes, GERD, hypertension, myocardial infarction, syncope , other Surgical history: Reports: appendectomy, carotid endarterectomy, coronary bypass (CABG), hip replacement, LE stent(s), vascular surgery, pacemaker Psychiatric history: Reports: anxiety, PTSD - Social History Smoking Status: Former smoker Smokeless Tobacco Status: No Alcohol use: Reports: none Drug use: Reports: none Physical Exam - General Limitations: physical limitation General appearance: alert, in no apparent distress - Head Head exam: atraumatic, normocephalic, normal inspection - Eye Eye exam: Present: normal appearance - Chest Chest inspection: Present: normal inspection, symmetric chest wall rise. Absent : tenderness - Respiratory Respiratory exam: Present: normal lung sounds bilaterally. Absent: respiratory distress, wheezes - Cardiovascular Cardiovascular exam: Present: regular rate, normal rhythm, normal heart sounds - Abdominal Exam Abdominal exam: Present: soft, Non-Tender. Absent: distention, guarding, rebound - Extremities Exam Extremities exam: Present: other (Patient difficulty using bilateral lower extremities especially since surgery. Does have 2+ pitting edema noted in bilateral lower extremities) - Neurological Exam Neurological exam: Present: alert, oriented X3 - Psychiatric Psychiatric exam: Present: normal affect, normal mood - Skin Skin exam: Present: warm, intact Course Course Narrative: 72-year-old male presents to the emergency department with chief complaint of fluid overload. We will obtain a cardiac workup along with a BNP. Patient physically looks fluid overloaded with 2+ pitting edema in bilateral lower extremities. Disposition plan on admitting the patient at this time. - Reevaluation(s) Reevaluation #1: Patient to be signed out to my attending Dr. Cisneros at this time. Time: 20:52 Vital Signs Temperature 97.7 F 06/07/17 19:52 Pulse Rate 74 06/07/17 19:52 Respiratory Rate 18 06/07/17 19:52 Blood Pressure 129/66 06/07/17 19:52 O2 Sat by Pulse Oximetry 97 06/07/17 19:52 Temperature 97.7 F 06/07/17 19:52 Pulse Rate 74 06/07/17 19:52 Respiratory Rate 12 06/07/17 21:31 Blood Pressure 129/66 06/07/17 21:31 O2 Sat by Pulse Oximetry 98 06/07/17 21:31 Oxygen Delivery Oxygen Delivery Nasal Cannula Medical Decision Making - [facility] Narrative Medical decision making narrative: Patient appears to be in congestive heart failure. His get lower extremity edema with increasing shortness of breath. I did speak with orthopedics. They are okay with us loosening up this left hip brace and told Dr. Cannon evaluates him tomorrow. I spoke with the hospitalist. Patient was given 40 of IV Lasix. He was also given a DuoNeb treatment for his shortness of breath and chest pressure. He feels that that has improved. Patient will need to be admitted again. EKG did not show any acute ischemia. Chronic A. fib. - Medical Records Medical records reviewed: Yes I reviewed the patient's medical records. - Lab Data Lab results reviewed: Yes I reviewed the patient's lab results. Result diagrams: 06/07/17 20:34 06/07/17 20:34 Lab Results 06/07/17 06/07/17 06/07/17 Range/Units 20:34 20:34 20:34 WBC 9.9 (4.3-11.1) K/mcL RBC 2.96 L (4.19-5.50) M/mcL Hgb 8.8 L (12.9-16.9) g/dL Hct 27.2 L (37.5-50.1) % MCV 91.9 (83.0-100.0) fL MCH 29.7 (28.0-33.3) pg MCHC 32.4 (31.6-35.5) g/dL RDW 17.3 H (11.5-14.5) % Plt Count 152 (140-400) K/mcL MPV 10.2 (9.4-12.4) fL Immature Gran % 4.0 (0-4) % Seg Neutrophils % 77.5 % Lymphocytes % 8.5 % Monocytes % 8.4 % Eosinophils % 1.3 % Basophils % 0.3 % Neutrophils # 7.7 (1.6-8.9) K/mcL Lymphocytes # 0.8 (0.6-4.6) K/mcL Monocytes # 0.8 (0.0-1.3) K/mcL Eosinophils # 0.1 (0.0-0.6) K/mcL Basophils # 0.0 (0.0-0.2) K/mcL Nucleated RBCs/100 WBC 1.2 H (0) /100 WBC PT (9.4-12.1) Seconds INR Sodium 139 (136-145) mEq/L Potassium 3.7 (3.5-4.5) mEq/L Chloride 108 (98-109) mEq/L Carbon Dioxide 19 (19-29) mEq/L BUN 13 (8-26) mg/dL Creatinine 0.90 (0.72-1.25) mg/dL Est GFR ( Amer) > 60 (> 60) Est GFR (Non-Af Amer) > 60 (> 60) BUN/Creatinine Ratio 14 (6-26) Glucose 114 H (70-99) mg/dL Calculated Osmolality 289 (280-300) Calcium 8.3 L (8.6-10.8) mg/dL Troponin I (0-0.03) ng/mL B-Natriuretic Peptide 1775 H (0-100) pg/mL 06/07/17 06/07/17 Range/Units 20:34 20:34 WBC (4.3-11.1) K/mcL RBC (4.19-5.50) M/mcL Hgb (12.9-16.9) g/dL Hct (37.5-50.1) % MCV (83.0-100.0) fL MCH (28.0-33.3) pg MCHC (31.6-35.5) g/dL RDW (11.5-14.5) % Plt Count (140-400) K/mcL MPV (9.4-12.4) fL Immature Gran % (0-4) % Seg Neutrophils % % Lymphocytes % % Monocytes % % Eosinophils % % Basophils % % Neutrophils # (1.6-8.9) K/mcL Lymphocytes # (0.6-4.6) K/mcL Monocytes # (0.0-1.3) K/mcL Eosinophils # (0.0-0.6) K/mcL Basophils # (0.0-0.2) K/mcL Nucleated RBCs/100 WBC (0) /100 WBC PT 14.4 H (9.4-12.1) Seconds INR 1.3 Sodium (136-145) mEq/L Potassium (3.5-4.5) mEq/L Chloride (98-109) mEq/L Carbon Dioxide (19-29) mEq/L BUN (8-26) mg/dL Creatinine (0.72-1.25) mg/dL Est GFR ( Amer) (> 60) Est GFR (Non-Af Amer) (> 60) BUN/Creatinine Ratio (6-26) Glucose (70-99) mg/dL Calculated Osmolality (280-300) Calcium (8.6-10.8) mg/dL Troponin I 0.03 (0-0.03) ng/mL B-Natriuretic Peptide (0-100) pg/mL - Radiology Data Radiology results reviewed: Yes I reviewed the patient's radiology results. - EKG Data EKG #1 EKG attestation: Yes I reviewed and interpreted this EKG. EKG results narrative: Sinus rhythm. 64 bpm. Right axis deviation. QRS 97 ms, QTC 475. Nonspecific T-wave changes. No signs of ST segment elevation. Attestation Statement - Attestation Attestation: I dr cisneros examined this patient and my medical decision-making was reviewed with the Resident Physician. I agree with the documented findings, disposition and treatment plan as described except to the extent set forth below. pt to be admitted for chf Patient [facility] for an unknown reason to me. This is caused him to go back into congestive heart failure. He does not believe is getting appropriate care at that nursing facility. I spoke with orthopedics as well as with the hospitalist.
[2017-06-07 20:44] LABS: Basophils % 0.3 %; Eosinophils # 0.1 K/mcL (0.0-0.6); Eosinophils % 1.3 %; Hematocrit 27.2 % (37.5-50.1); Hemoglobin 8.8 g/dL (12.9-16.9); Lymphocytes # 0.8 K/mcL (0.6-4.6); Lymphocytes % 8.5 %; Mean Corpuscular HGB Conc 32.4 g/dL (31.6-35.5); Mean Corpuscular Hemoglobin 29.7 pg (28.0-33.3); Mean Corpuscular Volume 91.9 fL (83.0-100.0); Mean Platelet Volume 10.2 fL (9.4-12.4); Monocytes # 0.8 K/mcL (0.0-1.3); Monocytes % 8.4 %; Neutrophils # 7.7 K/mcL (1.6-8.9); Nucleated Red Blood Cells 1.2 /100 WBC (0); Platelet Count 152 K/mcL (140-400); Red Blood Count 2.96 M/mcL (4.19-5.50); Red Cell Distribution Width 17.3 % (11.5-14.5); Segmented Neutrophils % 77.5 %
[2017-06-07 20:56] LABS: BUN/Creatinine Ratio 14 (6-26); Blood Urea Nitrogen 13 mg/dL (8-26); Calcium 8.3 mg/dL (8.6-10.8); Carbon Dioxide 19 mEq/L (19-29); Chloride 108 mEq/L (98-109); Glucose 114 mg/dL (70-99); Osmolality,Calculated 289 (280-300); Potassium 3.7 mEq/L (3.5-4.5); Sodium 139 mEq/L (136-145); eGFR For African Americans > 60 (> 60); eGFR For Non-African Americans > 60 (> 60)
[2017-06-07] MEDS ORDERED: Furosemide 40 MG/4 ML VIAL IVP ONE (21:01)
[2017-06-07 21:04] LABS: INR 1.3; Prothrombin Time 14.4 Seconds (9.4-12.1)
[2017-06-07] MEDS ORDERED: Ipratropium/Albuterol Neb 3 ML IH ONE (21:14)
[2017-06-08] MEDS ORDERED: *HR* Morphine 2 MG/ML SYRINGE IVP PRN (03:41)
[2017-06-08] MEDS ORDERED: Naloxone 0.4 MG/ML INJ IVP PRN (03:41)
[2017-06-08] MEDS ORDERED: Acetaminophen 325 MG TABLET PO PRN (03:41)
[2017-06-08] MEDS ORDERED: Furosemide 40 MG/4 ML VIAL IVP ONE (03:46)
[2017-06-08] MEDS ORDERED: MOM Conc 10 ML UD.LIQ PO PRN (03:48)
[2017-06-08] MEDS ORDERED: Ipratropium/Albuterol Neb 3 ML IH PRN (03:48)
[2017-06-08] MEDS ORDERED: Dextrose Gel 15 GM PO PRN ×2 (03:55)
[2017-06-08] MEDS ORDERED: D5% in Water 1,000 ML IVC PRN (03:55)
[2017-06-08] MEDS ORDERED: *HR* Dextrose 50 % in Water (Syg) 50 ML SYRINGE IVP PRN (03:55)
--- NOTE | 2017-06-08 04:21 | Internal Med History&Physical ---
Date of Encounter: 06/08/17 Time of Encounter: 03:05 Assessment and Plan (1) CHF (congestive heart failure) Current visit: Yes Status: Acute 1. Will diurese with IV Lasix. 2. Cycle troponins and EKG's. 3. Will order ECHO to evaluate LV function. 4. Resume home meds as appropriate. 5. Oxygen and other supportive measures as necessary. Qualifiers: Congestive heart failure type: systolic Congestive heart failure chronicity : acute Qualified Code(s): I50.21 - Acute systolic (congestive) heart failure (2) CAD (coronary artery disease) Current visit: No Status: Chronic 1. Continue home meds as appropriate. 2. No further chest tightness or pain since diuresis initiated. 3. Cycle troponins and EKG's. Qualifiers: Coronary Disease-Associated Artery/Lesion type: [place] artery [place] vs. transplanted heart: [place] heart Associated angina: without angina Qualified Code(s): I25.10 - Atherosclerotic heart disease of [place] coronary artery without angina pectoris (3) Status post revision of total hip Current visit: No Status: Acute 1. Consult Orthopedics for guidance and evaluation. (4) DVT prophylaxis Current visit: No Status: Acute 1. On Lovenonx 1 mg/kg BID for bridge therapy while resuming Coumadin. 2. Patient has history of DVT and PE. Internal Medicine - H&P: HPI Chief complaint: CHF Admitted From: Emergency Dept Plans for Post Hospital Care: Transfer [facility] Facility History of present illness: Mr. Huddleston is a 72 year old male who presents to ER with complaints of lower extremity swelling, shortness of breath, and restlessness. He was just discharged 2 days ago after having had his hip repaired. He was discharged to rehabilitation, but he felt he was not getting his regular medications ( diuretics). He noticed increasing swelling, shortness of breath, and chest tightness. He therefore came to the ER tonight with a diagnosis of CHF. Additionally, his leg brace was too tight and it had to be loosened because of the swelling. Upon my assessment of the patient, he feels a little better, but he is still uncomfortable with his hip and his leg brace. He has diuresed significantly with the diuretics given in the ER. However, he still feels swollen and short of breath. He denies any fevers, cough, congestion, vomiting, diarrhea. He has no chest pain or chest tightness now. Past Med Surg Social Fam HX - Past Medical History Attestation: Yes The following information was validated with the patient. Source: patient, old records reviewed Medical history: atrial fibrillation, CHF, COPD, coronary artery disease, CVA, DVT, diabetes, GERD, hypertension, myocardial infarction, syncope, other (PE) Psychiatric history: anxiety, PTSD - Past Surgical History Surgical History: appendectomy, carotid endarterectomy, coronary bypass (CABG), hip replacement, LE stent(s), vascular surgery, pacemaker - Social History Smoking Status: Former smoker Smokeless Tobacco Status: No Alcohol use: none Drug use: none [facility]: [facility] Activity Level: Other (rehab post-op hip) - Family History Father Hx Family Cancer: Yes Internal Medicine - H&P: Meds Furosemide [Lasix] 20 mg PO Q48H 04/13/15 [History] GlipiZIDE [Glucotrol] 7.5 mg PO BID 04/13/15 [History] Atorvastatin [Lipitor] 10 mg PO HS 10/16/15 [History] Amiodarone [Cordarone] 200 mg PO DAILY 02/08/16 [History] Lactobacillus [Culturelle] 1 each PO DAILY 02/08/16 [History] Albuterol Sulfate [Albuterol Inhaler] 2 puff IH QID PRN 06/01/17 [History] Brimonidine Tartrate [Alphagan P] 1 drop BOTH EYES TID 06/01/17 [History] Cholecalciferol (Vitamin D3) [Vitamin D3] 2,000 unit PO DAILY 06/01/17 [History] Enoxaparin [Lovenox] 120 mg SQ DAILY 06/01/17 [History] Furosemide [Lasix] 40 mg PO Q48H 06/01/17 [History] Levothyroxine [Synthroid] 50 mcg PO QAM 06/01/17 [History] Losartan Potassium [Cozaar] 100 mg PO DAILY 06/01/17 [History] Metformin HCl [Glucophage] 1,000 mg PO BID 06/01/17 [History] Metoprolol Succinate 25 mg PO DAILY 06/01/17 [History] Pregabalin [Lyrica] 200 mg PO BID 06/01/17 [History] Sertraline [Zoloft] 100 mg PO QPM 06/01/17 [History] Warfarin [Coumadin] 2 mg PO TH 06/01/17 [History] Warfarin [Coumadin] 4 mg PO SUMOTUWEFRSA 06/01/17 [History] amLODIPine [Norvasc] 5 mg PO DAILY 06/01/17 [History] Bisacodyl [Dulcolax] 5 mg PO BID 06/03/17 [History] Clopidogrel [Plavix] 75 mg PO DAILY 06/03/17 [History] Magnesium Hydroxide [Milk of Magnesia] 2,400 mg PO HS PRN 06/03/17 [History] Polyethylene Glycol 3350 [MiraLAX] 17 gm PO BID PRN 06/03/17 [History] Potassium Chloride [Klor-Con 10] 10 meq PO DAILY 06/03/17 [History] Tiotropium [Spiriva] 18 mcg IH 0700 06/03/17 [History] Travoprost [Travatan Z] 1 drop BOTH EYES HS 06/03/17 [History] traZODone [TraZODone] 50 mg PO HS PRN 06/03/17 [History] Doxycycline 100 mg PO BID #14 capsule 06/05/17 [Rx] Doxycycline Hyclate 100 mg PO BID 7 Days #14 tablet 06/05/17 [Rx] Docusate [Colace] 100 mg PO BID PRN capsule 06/06/17 [Rx] Doxycycline 100 mg PO BID capsule 06/06/17 [Rx] Ferrous Sulfate 325 mg PO BIDWM tablet 06/06/17 [Rx] Ipratropium/Albuterol Neb [Duoneb] 3 ml IH QID PRN #1 06/06/17 [Rx] MOM Conc [MILK OF MAGNESIA conc] 10 ml PO DAILY PRN ud.liq 06/06/17 [Rx] Ondansetron ODT [Zofran ODT] 4 mg SL Q6HR PRN #9 tab.rapdis 06/06/17 [Rx] OxyCODONE Immed Rel [Roxicodone 5 MG] 5 mg PO Q4HR PRN #9 tablet 06/06/17 [Rx] OxyCODONE Immed Rel [Roxicodone 5 MG] 10 mg PO Q4HR PRN #9 tablet 06/06/17 [Rx] 3 Allergy/AdvReac Type Severity Reaction Status Date / Time azithromycin Allergy See Verified 06/01/17 16:50 Comments ceftriaxone Allergy See Verified 06/01/17 16:50 Comments morphine Allergy See Verified 06/01/17 16:50 Comments sulfamethoxazole AdvReac See Verified 06/01/17 16:50 [From Bactrim] Comments trimethoprim [From Bactrim] AdvReac See Verified 06/01/17 16:50 Comments - Constitutional Constitutional: weight gain, no chills, no fever(s), no night sweats - EENT Eyes: no blurry vision, no change in vision Ears: no tinnitus Nose, mouth and throat: no nasal congestion, no sinus pressure, no sore throat - Cardiovascular Cardiovascular ROS IM: chest pain, dyspnea, dyspnea on exertion, edema, orthopnea - Respiratory Respiratory: dyspnea, no cough, no hemoptysis - Gastrointestinal Gastrointestinal: bloating, no abdominal pain, no diarrhea, no hematemesis, no hematochezia, no melena, no nausea, no vomiting - Genitourinary Genitourinary ROS male: no dysuria, no flank pain, no nocturia - Musculoskeletal Musculoskeletal ROS IM: arthralgias, back pain - Integumentary Integumentary IM: no rash, no jaundice - Neurological Neurological ROS: no dizziness, no focal weakness, no frequent falls, no headache(s) - Psychiatric Psychiatric: no anxiety, no depression - Endocrine Endocrine IM: no polydipsia, no polyuria - Hematologic/Lymphatic Hematologic/Lymphatic: easy bruising - Allergic/Immunologic Allergic/Immunologic: no GI upset with certain foods - Constitutional Vitals: Temp Pulse Resp BP Pulse Ox 98.1 F 90 19 126/76 98 06/08/17 03:31 06/08/17 03:31 06/08/17 03:31 06/08/17 03:31 06/08/17 03:31 General appearance: Present: cooperative, mild distress, A&O X 3, pleasant - Head Head exam: Present: atraumatic, normal inspection - Eye Eye exam: Present: EOMI, PERRL. Absent: scleral icterus - ENT ENT exam: Present: mucous membranes moist, normal exam - Neck Neck exam general surgery: Present: full ROM, supple. Absent: tenderness - Expanded Neck Exam Neck exam: Absent: carotid bruit - Respiratory Respiratory exam: Present: rales (both bases), respiratory distress (mild), rhonchi. Absent: accessory muscle use, chest wall tenderness, wheezes - Cardiovascular Cardiovascular exam: Present: distant heart sounds, RRR, +S1, +S2. Absent: diastolic murmur, JVD, systolic murmur - GI/Abdominal GI/Abdominal exam: Present: normal bowel sounds, soft. Absent: hepatomegaly, mass, splenomegaly, tenderness - Extremities Exam Extremities exam: Present: pedal edema (2-3+), warm, radial pulses palpable and symmetrical. Absent: full ROM (left hip in brace/immobilizer) - Back Exam Back exam: Absent: CVA tenderness (L), CVA tenderness (R) - Neurological Exam Neurological exam: Present: alert, CN II-XII intact, oriented X3, no focal deficits - Psychiatric Psychiatric exam: Present: normal affect, normal mood - Skin Skin exam: Present: dry, warm. Absent: rash Internal Med - H&P Results - Labs CBC & Chem 7: 06/07/17 20:34 06/07/17 20:34 - EKG Data -: EKG Interpreted by Myself - EKG Data Prior EKG available for review: no EKG comments: 06/08/17 04:25 NSR; no acute changes - Diagnostic Studies Chest x-ray Status: image reviewed by me (small pleural effusion)
[2017-06-08] MEDS: *HR* OxyCODONE Immed Rel 5 MG TABLET PO PRN ×3 (04:31→20:59)
[2017-06-08] MEDS: traZODone 50 MG TABLET PO PRN ×2 (04:31→21:00)
[2017-06-08 05:05] LABS: Basophils % 0.3 %; Eosinophils # 0.1 K/mcL (0.0-0.6); Hematocrit 25.1 % (37.5-50.1); Hemoglobin 8.4 g/dL (12.9-16.9); Immature Granulocytes % 4.5 % (0-4); Lymphocytes # 0.7 K/mcL (0.6-4.6); Lymphocytes % 8.1 %; Mean Corpuscular HGB Conc 33.5 g/dL (31.6-35.5); Mean Corpuscular Hemoglobin 30.7 pg (28.0-33.3); Mean Corpuscular Volume 91.6 fL (83.0-100.0); Mean Platelet Volume 10.5 fL (9.4-12.4); Monocytes # 0.7 K/mcL (0.0-1.3); Monocytes % 8.1 %; Neutrophils # 6.2 K/mcL (1.6-8.9); Nucleated Red Blood Cells 0.8 /100 WBC (0); Platelet Count 156 K/mcL (140-400); Red Blood Count 2.74 M/mcL (4.19-5.50); Red Cell Distribution Width 17.4 % (11.5-14.5)
[2017-06-08 05:11] LABS: Hemoglobin A1C 6.1 %
[2017-06-08 05:19] LABS: Alanine Aminotransferase 84 Units/L (0-55); Albumin 2.7 g/dL (3.5-5.0); Albumin/Globulin Ratio 0.9 (1.1-2.2); Alkaline Phosphatase 62 Units/L (38-126); Aspartate Amino Transferase 87 Units/L (5-34); BUN/Creatinine Ratio 14 (6-26); Bilirubin,Total 1.6 mg/dL (0.2-1.2); Blood Urea Nitrogen 13 mg/dL (8-26); Calcium 8.2 mg/dL (8.6-10.8); Carbon Dioxide 24 mEq/L (19-29); Chloride 107 mEq/L (98-109); Glucose 107 mg/dL (70-99); Magnesium 1.2 mg/dL (1.6-2.6); Osmolality,Calculated 289 (280-300); Potassium 3.7 mEq/L (3.5-4.5); Sodium 139 mEq/L (136-145); Total Protein 5.7 g/dL (6.0-8.3); eGFR For African Americans > 60 (> 60); eGFR For Non-African Americans > 60 (> 60)
[2017-06-08 05:30] LABS: INR 1.4
[2017-06-08] MEDS ORDERED: *HR* Enoxaparin 100 MG/ML SYRINGE SQ SCH (06:00)
[2017-06-08] MEDS ORDERED: Magnesium Sulfate 4 GM in D5% in Water 100 ML IVPB ONE (07:57)
[2017-06-08] MEDS: Tiotropium 18 MCG inhalation IH SCH (08:23)
--- NOTE | 2017-06-08 08:39 | Orthopedics Progress Note ---
Date of Encounter: 06/08/17 Time of Encounter: 08:32 - Assessment and Plan (1) Status post revision of total hip Current Visit: Yes Status: Acute Patient is well known to orthopedic practice. 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 Then readmitted on 06/07/17 secondary to edema and CHF exacerbation. Left Hip: Change and cleanse wound TID - 4x4, ABD and paper tape *allergy to other tapes* Continue Doxycycline to complete 7 day course. Hip T-Scope D/C'ed secondary to swelling and pain it is causing. Follow hip precautions. XRAY ordered* Wound Care instructions Ordered* Plan to D.C Lovenox once PT/INR therapeutic to held decrease drainage from wound * Left heel: No evidence of breakdown, neuropathy noted. Protect heel from pressure to prevent breakdown. Patient did not get to participate with PT secondary to weakness. Encourage PT/ OT as tolerated. [facility], unable to go on Thursday due to lack of beds at [place]. Will consult with manager social work again to try. Subjective Principal diagnosis: Left Hip - Revision THR s/p hip dislocation Interval history: Patient is well known to orthopedic practice. 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 Then readmitted on 06/07/17 secondary to edema and CHF exacerbation. Left Hip: Dressing 50% saturated with blood-tinged serusanginous fluid. Order was to be changing dressing TID and he was started on Doxycycline at discharge due to drainage and repetitive trauma. No erythema, purulence or active drainage. Minimal tenderness along left hip. ROM limited Hip Tscope brace intact. Left heel: No evidence of breakdown, neuropathy noted. Patient did not get to participate with PT secondary to weakness. He is [facility], unable to go on Thursday due to lack of beds at [place]. Will consult with manager social work again to try. Objective Vital signs: Vital Signs Temp Pulse Resp BP Pulse Ox 06/08/17 08:25 16 92 06/08/17 07:58 98.3 F 58 15 122/69 95 06/08/17 03:31 98.1 F 90 19 126/76 98 06/07/17 23:19 98.3 F 60 17 146/67 94 06/07/17 22:51 18 141/68 Intake and Output 06/07/17 06/08/17 06/08/17 23:59 07:59 15:59 Intake Total 0 / 0 0 / 0 Output Total 1100 / 1100 700 / 700 Balance -1100 / -1100 -700 / -700 Intake: Oral 0 / 0 0 / 0 Output: Urine 0 / 0 Catheter 1100 / 1100 700 / 700 Other: Weight 86.3 kg Blood Glucose* 114 Patient Weight 06/08/17 23:59 Weight 86.3 kg Incision: swollen - Labs CBC & BMP: 06/08/17 04:14 06/08/17 04:14 Labs: Abnormal lab results RBC 2.74 M/mcL (4.19-5.50) L 06/08/17 04:14 Hgb 8.4 g/dL (12.9-16.9) L 06/08/17 04:14 Hct 25.1 % (37.5-50.1) L 06/08/17 04:14 RDW 17.4 % (11.5-14.5) H 06/08/17 04:14 Immature Gran % 4.5 % (0-4) H 06/08/17 04:14 Nucleated RBCs/100 WBC 0.8 /100 WBC (0) H 06/08/17 04:14 PT 15.0 Seconds (9.4-12.1) H 06/08/17 04:14 Glucose 107 mg/dL (70-99) H 06/08/17 04:14 POC Glucose 114 (58-89) H 06/08/17 08:03 Hemoglobin A1c 6.1 % (-5.6) H 06/08/17 04:14 Calcium 8.2 mg/dL (8.6-10.8) L 06/08/17 04:14 Magnesium 1.2 mg/dL (1.6-2.6) L 06/08/17 04:14 Total Bilirubin 1.6 mg/dL (0.2-1.2) H 06/08/17 04:14 AST 87 Units/L (5-34) H 06/08/17 04:14 ALT 84 Units/L (0-55) H 06/08/17 04:14 B-Natriuretic Peptide 1775 pg/mL (0-100) H 06/07/17 20:34 Serum Total Protein 5.7 g/dL (6.0-8.3) L 06/08/17 04:14 Albumin 2.7 g/dL (3.5-5.0) L 06/08/17 04:14 Albumin/Globulin Ratio 0.9 (1.1-2.2) L 06/08/17 04:14 Consult Discharge Plan - Plan Referrals: [facility],PCP [Primary Care Provider] -
[2017-06-08] MEDS: Insulin LISPRO 300 UNITS/3 ML VIAL SQ SCH ×3 (08:42→17:34)
[2017-06-08] MEDS: Lactobacillus 1 EACH CAP.SPRINK PO SCH (08:55)
[2017-06-08] MEDS: Doxycycline 100 MG CAPSULE PO SCH ×2 (08:55→20:59)
[2017-06-08] MEDS: Furosemide Oral Soln 40 MG/4 ML UDC PO SCH (08:55)
[2017-06-08] MEDS: Pregabalin 50 MG CAPSULE PO SCH ×2 (08:56→21:00)
[2017-06-08] MEDS: Metoprolol XL (24 HR) Succ 25 MG TAB.ER.24H PO SCH (08:56)
[2017-06-08] MEDS: *HR* Amiodarone 200 MG TABLET PO SCH (08:56)
[2017-06-08] MEDS: Cholecalciferol (D-3) 1,000 UNIT TABLET PO SCH (08:56)
[2017-06-08] MEDS: amLODIPine 5 MG TABLET PO SCH (08:56)
[2017-06-08] MEDS: Magnesium Sulfate 2 GM in D5% in Water 100 ML IVPB SCH ×2 (08:56→10:40)
--- NOTE | 2017-06-08 13:07 | Internal Med Progress Note ---
Date of Encounter: 06/08/17 Time of Encounter: 10:30 - Assessment and plan (1) CHF (congestive heart failure) Current Visit: Yes Status: Acute Assessment and plan: Improving. Continue IV Lasix. Patient having good urine output. Renal function remains stable. Moderate risk for complications Qualifiers: Congestive heart failure type: systolic Congestive heart failure chronicity : acute on chronic Qualified Code(s): I50.23 - Acute on chronic systolic ( congestive) heart failure (2) Status post revision of total hip Current Visit: Yes Status: Acute Assessment and plan: Orthopedics consulted. Would recommend resuming doxycycline which was started during last hospitalization for possible local wound infection. Also patient has been noted to have increased blood-tinged serosanguineous fluid discharge from site of dressing. Discussed with orthopedics. We will hold therapeutic doses of Lovenox and continue Coumadin for now as patient also has anemia. (3) CAD (coronary artery disease) Current Visit: Yes Status: Chronic Assessment and plan: No chest pain. Continue home medications. Qualifiers: Coronary Disease-Associated Artery/Lesion type: [place] artery [place] vs. transplanted heart: [place] heart Associated angina: without angina Qualified Code(s): I25.10 - Atherosclerotic heart disease of [place] coronary artery without angina pectoris (4) DVT prophylaxis Current Visit: No Status: Resolved (5) Atrial fibrillation Current Visit: Yes Status: Chronic Assessment and plan: Rate controlled. On anticoagulation with INR subtherapeutic. We will hold off on bridging with Lovenox due to anemia and increased blood-tinged serous sanguinous drainage from site of dressing at left hip. Qualifiers: Atrial fibrillation type: chronic Qualified Code(s): I48.2 - Chronic atrial fibrillation (6) Anemia Current Visit: Yes Status: Chronic Assessment and plan: Hemoglobin 8.4 today. Chronic anemia but patient does have increased bleeding from site of recent surgery in dressing at left hip. We will stop Lovenox. Continue Coumadin Qualifiers: Anemia type: unspecified type Qualified Code(s): D64.9 - Anemia, unspecified - Subjective Interval history: Patient is awake and alert. Feels that his pain and swelling in his legs are improving. Shortness of breath is also improving. No fever or chills. No chest pain. - Constitutional Vitals: Temp Pulse Resp BP Pulse Ox 97.4 F L 77 18 125/60 93 06/08/17 11:35 06/08/17 11:35 06/08/17 11:35 06/08/17 11:35 06/08/17 11:35 General appearance: Present: cooperative, mild distress, A&O X 3, pleasant, answers questions appropriately - Respiratory Respiratory exam: Present: CTAB. Absent: accessory muscle use, rales, rhonchi, wheezes - Cardiovascular Cardiovascular exam: Present: RRR, +S1, +S2. Absent: diastolic murmur, gallop, rubs, systolic murmur - GI/Abdominal GI/Abdominal exam: Present: normal bowel sounds, soft, no peritoneal signs. Absent: distended, tenderness - Extremities Exam Extremities exam: Present: tenderness (Left hip ), warm, radial pulses palpable and symmetrical. Absent: calf tenderness, cyanotic, pedal edema Additional comments: Left hip bandaged. - Neurological Exam Neurological exam: Present: alert, oriented X3, no focal deficits. Absent: facial droop, speech deficit Internal Medicine: Result - Labs CBC & Chem 7: 06/08/17 04:14 06/08/17 04:14 Labs: Short CBC 06/08/17 Range/Units 04:14 WBC 8.0 (4.3-11.1) K/mcL Hgb 8.4 L (12.9-16.9) g/dL Hct 25.1 L (37.5-50.1) % Plt Count 156 (140-400) K/mcL Neutrophils # 6.2 (1.6-8.9) K/mcL BMP 06/08/17 04:14 Sodium 139 Potassium 3.7 Chloride 107 Carbon Dioxide 24 BUN 13 Creatinine 0.91 Glucose 107 H Calcium 8.2 L Cardiac Enzymes 06/08/17 06/08/17 Range/Units 04:14 10:03 Troponin I 0.03 0.02 (0-0.03) ng/mL Liver Function 06/08/17 Range/Units 04:14 Total Bilirubin 1.6 H (0.2-1.2) mg/dL AST 87 H (5-34) Units/L ALT 84 H (0-55) Units/L Alkaline Phosphatase 62 (38-126) Units/L Albumin 2.7 L (3.5-5.0) g/dL - ABG Interpretation ABG results: PT/INR, D-dimer PT 15.0 Seconds (9.4-12.1) H 06/08/17 04:14 Consult Discharge Plan - Plan [facility]errals: [facility] [Primary Care Provider] -
--- NOTE | 2017-06-08 13:34 | Electrocardiograph Report ---
[place] [id number] Test Date: 2017-06-07 Pat Name: Venu Huddleston Department: 103 Room: 3A63 Gender: M [employer] Professor: JULIANA : 1945 Requested By: Viktoriya Ayon Order Number: [id number] Reading MD: Taqueria Iyer Measurements Intervals [place] Rate: 64 P: MA: 0 QRS: 108 QRSD: 97 T: 65 QT: 465 QTc: 475 Interpretive Statements sinus rythm MARKED RIGHT AXIS DEVIATION [QRS AXIS > 100] PROLONGED QT INTERVAL Electronically Signed On 06-08-2017 13:32:12 EDT by Taqueria Iyer
[2017-06-08] MEDS ORDERED: *HR* Warfarin 5 MG TABLET PO ONE (18:00)
[2017-06-08] MEDS ORDERED: Warfarin perPT PO PRN (18:00)
[2017-06-08] MEDS: Latanoprost 2.5 ML BOTTLE BOTH EYES SCH (21:00)
[2017-06-09 06:03] LABS: INR 1.4; Prothrombin Time 15.7 Seconds (9.4-12.1)
[2017-06-09] MEDS: Insulin LISPRO 300 UNITS/3 ML VIAL SQ SCH ×3 (07:32→16:57)
[2017-06-09] MEDS: Furosemide Oral Soln 40 MG/4 ML UDC PO SCH (09:16)
[2017-06-09] MEDS: Metoprolol XL (24 HR) Succ 25 MG TAB.ER.24H PO SCH (09:17)
[2017-06-09] MEDS: *HR* OxyCODONE Immed Rel 5 MG TABLET PO PRN ×2 (09:17→20:30)
[2017-06-09] MEDS: Doxycycline 100 MG CAPSULE PO SCH ×2 (09:17→20:30)
[2017-06-09] MEDS: Cholecalciferol (D-3) 1,000 UNIT TABLET PO SCH (09:17)
[2017-06-09] MEDS: Lactobacillus 1 EACH CAP.SPRINK PO SCH (09:17)
[2017-06-09] MEDS: Pregabalin 50 MG CAPSULE PO SCH ×2 (09:18→20:30)
[2017-06-09] MEDS: amLODIPine 5 MG TABLET PO SCH (09:18)
[2017-06-09] MEDS: *HR* Amiodarone 200 MG TABLET PO SCH (09:18)
[2017-06-09] MEDS: Tiotropium 18 MCG inhalation IH SCH (11:19)
--- NOTE | 2017-06-09 13:32 | Internal Med Progress Note ---
Date of Encounter: 06/09/17 Time of Encounter: 10:00 - Assessment and plan (1) CHF (congestive heart failure) Current Visit: Yes Status: Acute Assessment and plan: Improving. Continue po Lasix. Patient having good urine output. Renal function remains stable. Moderate risk for complications. Cumulative I/O is - 3296 mL. Bodyweight to get down from 88.451 to 83.915 now. Qualifiers: Congestive heart failure type: combined Congestive heart failure chronicity : acute on chronic Qualified Code(s): I50.43 - Acute on chronic combined systolic (congestive) and diastolic (congestive) heart failure (2) Status post revision of total hip Current Visit: Yes Status: Acute Assessment and plan: Orthopedics consulted. Would recommend resuming doxycycline which was started during last hospitalization for possible local wound infection. Also patient has been noted to have increased blood-tinged serosanguineous fluid discharge from site of dressing. Will hold therapeutic doses of Lovenox and continue Coumadin for now as patient also has anemia. (3) Atrial fibrillation Current Visit: Yes Status: Chronic Assessment and plan: Rate controlled. On anticoagulation with INR subtherapeutic. We will hold off on bridging with Lovenox due to anemia and increased blood-tinged serous sanguinous drainage from site of dressing at left hip. Qualifiers: Atrial fibrillation type: chronic Qualified Code(s): I48.2 - Chronic atrial fibrillation (4) CAD (coronary artery disease) Current Visit: Yes Status: Chronic Assessment and plan: No chest pain. Continue home medications. Qualifiers: Coronary Disease-Associated Artery/Lesion type: [place] artery [place] vs. transplanted heart: [place] heart Associated angina: without angina Qualified Code(s): I25.10 - Atherosclerotic heart disease of [place] coronary artery without angina pectoris (5) DVT prophylaxis Current Visit: No Status: Acute Assessment and plan: Patient is on by mouth Coumadin (6) Anticoagulant long-term use Current Visit: No Status: Chronic Assessment and plan: Continue Coumadin and closely monitor PT/INR - Time Spent With Patient 25 - 35 minutes - Subjective Interval history: Patient is a 72-year-old male admitted for CHF exacerbation due to discontinued Lasix in rehabilitation. Past medical history is significant for A. fib, CHF, COPD, CAD, CVA, DVT, diabetes, hypertension Patient was seen and examined. Denies chest pain or shortness of breath. Bilateral leg swelling has improved. Vitals are stable. We will continue Lasix 40mg po daily. Since patient has history of DVT and recent hip surgery, will order ultrasound of bilateral legs to rule out DVT. Continue Coumadin. - Constitutional Vitals: Temp Pulse Resp BP Pulse Ox 97.7 F 63 17 109/56 96 06/09/17 10:41 06/09/17 10:41 06/09/17 10:41 06/09/17 10:41 06/09/17 10:41 General appearance: Present: cooperative, mild distress, A&O X 3, pleasant, answers questions appropriately - Head Head exam: Present: atraumatic, normocephalic - Eye Eye exam: Present: PERRL, conjuntiva pink, sclera anicteric Pupils: Present: PERRL - Neck Neck exam general surgery: Present: supple, trachea midline. Absent: lymphadenopathy - Respiratory Respiratory exam: Present: CTAB. Absent: accessory muscle use, rales, rhonchi, wheezes - Cardiovascular Cardiovascular exam: Present: RRR, +S1, +S2. Absent: diastolic murmur, gallop, rubs, systolic murmur - GI/Abdominal GI/Abdominal exam: Present: normal bowel sounds, soft, no peritoneal signs. Absent: distended, tenderness - Extremities Exam Extremities exam: Present: pedal edema, warm, radial pulses palpable and symmetrical. Absent: calf tenderness, cyanotic - Neurological Exam Neurological exam: Present: CN II-XII intact, oriented X3, no focal deficits. Absent: pronater drift, facial droop, speech deficit - Skin Skin exam: Present: dry, intact Internal Medicine: Result - Labs CBC & Chem 7: 06/08/17 04:14 06/08/17 04:14 - ABG Interpretation ABG results: PT/INR, D-dimer PT 15.7 Seconds (9.4-12.1) H 06/09/17 05:34 - VTE Documentation of Mechanical Device: Intermittent pneumatic compression device Consult Discharge Plan - Plan [facility]errals: [facility] [Primary Care Provider] -
[2017-06-09] MEDS ORDERED: *HR* Warfarin 4 MG TABLET PO ONE (18:00)
[2017-06-09] MEDS: traZODone 50 MG TABLET PO PRN (20:30)
[2017-06-09] MEDS: Latanoprost 2.5 ML BOTTLE BOTH EYES SCH (20:32)
[2017-06-09] MEDS ORDERED: Insulin LISPRO 300 UNITS/3 ML VIAL SQ SCH (21:00)
[2017-06-10 04:12] LABS: Hematocrit 25.2 % (37.5-50.1); Hemoglobin 8.2 g/dL (12.9-16.9); Mean Corpuscular HGB Conc 32.5 g/dL (31.6-35.5); Mean Corpuscular Hemoglobin 30.6 pg (28.0-33.3); Mean Platelet Volume 9.6 fL (9.4-12.4); Nucleated Red Blood Cells 0.8 /100 WBC (0); Platelet Count 174 K/mcL (140-400); Red Blood Count 2.68 M/mcL (4.19-5.50); Red Cell Distribution Width 17.5 % (11.5-14.5)
[2017-06-10 04:15] LABS: INR 1.8; Prothrombin Time 19.1 Seconds (9.4-12.1)
[2017-06-10 04:26] LABS: BUN/Creatinine Ratio 17 (6-26); Blood Urea Nitrogen 15 mg/dL (8-26); Calcium 8.2 mg/dL (8.6-10.8); Carbon Dioxide 27 mEq/L (19-29); Chloride 107 mEq/L (98-109); Glucose 165 mg/dL (70-99); Osmolality,Calculated 291 (280-300); Potassium 3.5 mEq/L (3.5-4.5); Sodium 138 mEq/L (136-145); eGFR For African Americans > 60 (> 60); eGFR For Non-African Americans > 60 (> 60)
[2017-06-10 04:38] LABS: Monocytes # 0.3 K/mcL (0.0-1.3)
[2017-06-10 04:39] LABS: Eosinophils # 0.2 K/mcL (0.0-0.6); Lymphocytes # 1.1 K/mcL (0.6-4.6); Neutrophils # 5.9 K/mcL (1.6-8.9); Platelet Estimate Normal (Normal)
[2017-06-10] MEDS: *HR* OxyCODONE Immed Rel 5 MG TABLET PO PRN (05:48)
[2017-06-10] MEDS: Doxycycline 100 MG CAPSULE PO SCH (07:25)
[2017-06-10] MEDS: Lactobacillus 1 EACH CAP.SPRINK PO SCH (07:26)
[2017-06-10] MEDS: amLODIPine 5 MG TABLET PO SCH (07:26)
[2017-06-10] MEDS: Cholecalciferol (D-3) 1,000 UNIT TABLET PO SCH (07:26)
[2017-06-10] MEDS: Metoprolol XL (24 HR) Succ 25 MG TAB.ER.24H PO SCH (07:26)
[2017-06-10] MEDS: *HR* Amiodarone 200 MG TABLET PO SCH (07:26)
[2017-06-10] MEDS: Pregabalin 50 MG CAPSULE PO SCH (07:38)
[2017-06-10] MEDS: Insulin LISPRO 300 UNITS/3 ML VIAL SQ SCH (07:42)
[2017-06-10] MEDS: Tiotropium 18 MCG inhalation IH SCH (08:14)
[2017-06-10] MEDS ORDERED: Furosemide 40 MG TABLET PO SCH (09:00)
--- NOTE | 2017-06-10 10:28 | Discharge Summary ---
Date of Encounter: 06/10/17 Time of Encounter: 09:00 - Discharge Diagnosis (1) CHF (congestive heart failure) Priority: Primary Status: Acute Qualifiers: Congestive heart failure type: combined Congestive heart failure chronicity : acute on chronic Qualified Code(s): I50.43 - Acute on chronic combined systolic (congestive) and diastolic (congestive) heart failure (2) Status post revision of total hip Priority: Secondary Status: Acute (3) Atrial fibrillation Priority: Secondary Status: Chronic Qualifiers: Atrial fibrillation type: chronic Qualified Code(s): I48.2 - Chronic atrial fibrillation (4) CAD (coronary artery disease) Priority: Secondary Status: Chronic Qualifiers: Coronary Disease-Associated Artery/Lesion type: [place] artery [place] vs. transplanted heart: [place] heart Associated angina: without angina Qualified Code(s): I25.10 - Atherosclerotic heart disease of [place] coronary artery without angina pectoris (5) DVT prophylaxis Priority: Secondary Status: Acute (6) Anticoagulant long-term use Priority: Secondary Status: Chronic - Discharge Medications Prescriptions: RX: OxyCODONE Immed Rel [Roxicodone 5 MG] 5 mg PO Q4HR PRN #9 tablet PRN Reason: MILD PAIN 1-3 RX: Pregabalin [Lyrica] 200 mg PO BID #14 capsule Home Medications: RX: Furosemide [Lasix] 20 mg PO Q48H 04/13/15 [History] RX: GlipiZIDE [Glucotrol] 7.5 mg PO BID 04/13/15 [History] RX: Atorvastatin [Lipitor] 10 mg PO HS 10/16/15 [History] RX: Amiodarone [Cordarone] 200 mg PO DAILY 02/08/16 [History] RX: Lactobacillus [Culturelle] 1 each PO DAILY 02/08/16 [History] RX: Albuterol Sulfate [Albuterol Inhaler] 2 puff IH QID PRN 06/01/17 [History] RX: Brimonidine Tartrate [Alphagan P] 1 drop BOTH EYES TID 06/01/17 [History] RX: Cholecalciferol (Vitamin D3) [Vitamin D3] 2,000 unit PO DAILY 06/01/17 [ History] RX: Furosemide [Lasix] 40 mg PO Q48H 06/01/17 [History] RX: Levothyroxine [Synthroid] 50 mcg PO QAM 06/01/17 [History] RX: Losartan Potassium [Cozaar] 100 mg PO DAILY 06/01/17 [History] RX: Metformin HCl [Glucophage] 1,000 mg PO BID 06/01/17 [History] RX: Metoprolol Succinate 25 mg PO DAILY 06/01/17 [History] RX: Sertraline [Zoloft] 100 mg PO QPM 06/01/17 [History] RX: Warfarin [Coumadin] 2 mg PO TH 06/01/17 [History] RX: Warfarin [Coumadin] 4 mg PO SUMOTUWEFRSA 06/01/17 [History] RX: amLODIPine [Norvasc] 5 mg PO DAILY 06/01/17 [History] RX: Bisacodyl [Dulcolax] 5 mg PO BID 06/03/17 [History] RX: Clopidogrel [Plavix] 75 mg PO DAILY 06/03/17 [History] RX: Magnesium Hydroxide [Milk of Magnesia] 2,400 mg PO HS PRN 06/03/17 [History] RX: Polyethylene Glycol 3350 [MiraLAX] 17 gm PO BID PRN 06/03/17 [History] RX: Potassium Chloride [Klor-Con 10] 10 meq PO DAILY 06/03/17 [History] RX: Tiotropium [Spiriva] 18 mcg IH 0700 06/03/17 [History] RX: Travoprost [Travatan Z] 1 drop BOTH EYES HS 06/03/17 [History] RX: traZODone [TraZODone] 50 mg PO HS PRN 06/03/17 [History] RX: Doxycycline 100 mg PO BID #14 capsule 06/05/17 [Rx] RX: Docusate [Colace] 100 mg PO BID PRN capsule 06/06/17 [Rx] RX: Ferrous Sulfate 325 mg PO BIDWM tablet 06/06/17 [Rx] RX: Ipratropium/Albuterol Neb [Duoneb] 3 ml IH QID PRN #1 06/06/17 [Rx] RX: MOM Conc [MILK OF MAGNESIA conc] 10 ml PO DAILY PRN ud.liq 06/06/17 [Rx] RX: Docusate [Colace] 100 mg PO BID PRN capsule 06/10/17 [Rx] RX: OxyCODONE Immed Rel [Roxicodone 5 MG] 5 mg PO Q4HR PRN #9 tablet 06/10/17 [ Rx] RX: Pregabalin [Lyrica] 200 mg PO BID #14 capsule 06/10/17 [Rx] Allergies/Adverse Reactions: 3 Allergy/AdvReac Type Severity Reaction Status Date / Time azithromycin Allergy See Verified 06/01/17 16:50 Comments ceftriaxone Allergy See Verified 06/01/17 16:50 Comments morphine Allergy See Verified 06/01/17 16:50 Comments sulfamethoxazole AdvReac See Verified 06/01/17 16:50 [From Bactrim] Comments trimethoprim [From Bactrim] AdvReac See Verified 06/01/17 16:50 Comments Procedures/tests Complete & Pending: Procedures Performed prior 72 hours Category Date Time Status Venous Doppler [EV venous imaging LE BI] Stat Y 06/09/17 12:34 Completed - Notes to Outpatient Provider 1. Per orthopedic, please continue doxycycline to finish 7 day course. 2. Patient is on Coumadin please closely follow-up PT/INR. 3. Follow-up with orthopedic on next Thursday. Date of admission: 06/09/17 12:33 Primary care physician: PCP [place] Discharging clinician: Claudia Redmond Anticipated date of discharge: 06/10/17 - Patient Status Disposition: Transfer Inpatient Rehab Fac Condition: Fair Functional capacity at discharge: uses cane/walker Overall status at discharge: patient is progressing back to baseline - Discharge Instructions Follow Up With: [facility],PCP [Primary Care Provider] - Andrea Cannon MD [Partnered Physician] - 06/16/17 - Diet and Activity Activity: as per physical therapy Diet: advance to your usual diet, diabetic diet, low salt diet Interval History: Mr. Huddleston was admitted for bilateral leg swelling from a snf on . Patient denies shortness of breath. Hospital course: Mr. Huddleston is a 72 year old male admitted for bilateral leg swelling. Patient has history of systolic and diastolic CHF on Lasix. His Lasix was on hold during rehabilitation which may contribute to leg swelling. He was treated with IV Lasix, which was switched to by mouth laterly. His leg swelling has improved significantly. Cumulative I/O -3766. Patient has good urine output and kidney function. We will discharge patient to rehabilitation again and continue by mouth Lasix. Discussed with orthopedic, will arrange outpatient follow-up with orthopedic on next Thursday. I saw and examined the patient today. Patient is awake alert, oriented 3. Denies chest pain or shortness of breath. Bilateral leg swelling has improved. Vital signs stable. Bilateral leg Doppler venous has been done, preliminary result negative for DVT. No further wound bleeding. Patient will discharge to rehabilitation and to continue follow-up with PCP and orthopedic as outpatient - Time Spent with Patient Total time spent providing and/or coordinating discharge services: Greater than 30 minutes - Constitutional Vitals: Temp Pulse Resp BP Pulse Ox 97.6 F 67 14 122/58 98 06/10/17 08:00 06/10/17 08:00 06/10/17 08:00 06/10/17 08:00 06/10/17 08:00 General appearance: Present: cooperative, mild distress, A&O X 3, pleasant, answers questions appropriately - Head Head exam: Present: atraumatic, normocephalic - Eye Eye exam: Present: PERRL, conjuntiva pink, sclera anicteric Pupils: Present: PERRL - Neck Neck exam general surgery: Present: supple, trachea midline. Absent: lymphadenopathy - Respiratory Respiratory exam: Present: CTAB. Absent: accessory muscle use, rales, rhonchi, wheezes - Cardiovascular Cardiovascular exam: Present: RRR, +S1, +S2. Absent: diastolic murmur, gallop, rubs, systolic murmur - GI/Abdominal GI/Abdominal exam: Present: normal bowel sounds, soft, no peritoneal signs. Absent: distended, tenderness - Extremities Exam Extremities exam: Present: warm, radial pulses palpable and symmetrical. Absent : calf tenderness, cyanotic, pedal edema Additional comments: S/p Left hip surgery, wound is a well-dressed. - Neurological Exam Neurological exam: Present: CN II-XII intact, oriented X3, no focal deficits. Absent: pronater drift, facial droop, speech deficit - Skin Skin exam: Present: dry, intact - VTE Documentation of Mechanical Device: Intermittent pneumatic compression device
[2017-06-10 11:23] VITALS: BP 121/68
--- NOTE | 2017-06-10 12:06 | Physician Discharge Referral ---
[facility] Referral Info Transfer To: Rehab Provider in Charge after Transfer: Other - Diagnosis (1) CHF (congestive heart failure) Priority: Primary Status: Acute (2) Status post revision of total hip Priority: Secondary Status: Acute (3) Atrial fibrillation Priority: Secondary Status: Chronic (4) CAD (coronary artery disease) Priority: Secondary Status: Chronic (5) DVT prophylaxis Priority: Secondary Status: Acute (6) Anticoagulant long-term use Priority: Secondary Status: Chronic - Transfer Medications Prescriptions: OxyCODONE Immed Rel [Roxicodone 5 MG] 5 mg PO Q4HR PRN #9 tablet PRN Reason: MILD PAIN 1-3 Pregabalin [Lyrica] 200 mg PO BID #14 capsule Home Medications: Furosemide [Lasix] 20 mg PO Q48H 04/13/15 [History] GlipiZIDE [Glucotrol] 7.5 mg PO BID 04/13/15 [History] Atorvastatin [Lipitor] 10 mg PO HS 10/16/15 [History] Amiodarone [Cordarone] 200 mg PO DAILY 02/08/16 [History] Lactobacillus [Culturelle] 1 each PO DAILY 02/08/16 [History] Albuterol Sulfate [Albuterol Inhaler] 2 puff IH QID PRN 06/01/17 [History] Brimonidine Tartrate [Alphagan P] 1 drop BOTH EYES TID 06/01/17 [History] Cholecalciferol (Vitamin D3) [Vitamin D3] 2,000 unit PO DAILY 06/01/17 [History] Furosemide [Lasix] 40 mg PO Q48H 06/01/17 [History] Levothyroxine [Synthroid] 50 mcg PO QAM 06/01/17 [History] Losartan Potassium [Cozaar] 100 mg PO DAILY 06/01/17 [History] Metformin HCl [Glucophage] 1,000 mg PO BID 06/01/17 [History] Metoprolol Succinate 25 mg PO DAILY 06/01/17 [History] Sertraline [Zoloft] 100 mg PO QPM 06/01/17 [History] Warfarin [Coumadin] 2 mg PO TH 06/01/17 [History] Warfarin [Coumadin] 4 mg PO SUMOTUWEFRSA 06/01/17 [History] amLODIPine [Norvasc] 5 mg PO DAILY 06/01/17 [History] Bisacodyl [Dulcolax] 5 mg PO BID 06/03/17 [History] Clopidogrel [Plavix] 75 mg PO DAILY 06/03/17 [History] Magnesium Hydroxide [Milk of Magnesia] 2,400 mg PO HS PRN 06/03/17 [History] Polyethylene Glycol 3350 [MiraLAX] 17 gm PO BID PRN 06/03/17 [History] Potassium Chloride [Klor-Con 10] 10 meq PO DAILY 06/03/17 [History] Tiotropium [Spiriva] 18 mcg IH 0700 06/03/17 [History] Travoprost [Travatan Z] 1 drop BOTH EYES HS 06/03/17 [History] traZODone [TraZODone] 50 mg PO HS PRN 06/03/17 [History] Doxycycline 100 mg PO BID #14 capsule 06/05/17 [Rx] Docusate [Colace] 100 mg PO BID PRN capsule 06/06/17 [Rx] Ferrous Sulfate 325 mg PO BIDWM tablet 06/06/17 [Rx] Ipratropium/Albuterol Neb [Duoneb] 3 ml IH QID PRN #1 06/06/17 [Rx] MOM Conc [MILK OF MAGNESIA conc] 10 ml PO DAILY PRN ud.liq 06/06/17 [Rx] Docusate [Colace] 100 mg PO BID PRN capsule 06/10/17 [Rx] OxyCODONE Immed Rel [Roxicodone 5 MG] 5 mg PO Q4HR PRN #9 tablet 06/10/17 [Rx] Pregabalin [Lyrica] 200 mg PO BID #14 capsule 06/10/17 [Rx] Allergies/Adverse Reactions: 3 Allergy/AdvReac Type Severity Reaction Status Date / Time azithromycin Allergy See Verified 06/01/17 16:50 Comments ceftriaxone Allergy See Verified 06/01/17 16:50 Comments morphine Allergy See Verified 06/01/17 16:50 Comments sulfamethoxazole AdvReac See Verified 06/01/17 16:50 [From Bactrim] Comments trimethoprim [From Bactrim] AdvReac See Verified 06/01/17 16:50 Comments - Respiratory Orders Oxygen / L per min (2L/min as needed) Smoking Cessation: Smoking cessation has been advised. For more information, call the [place] Tobacco Quit Line at 1-987-XHQF-NOW. - Lab Orders Lab Orders: Other (include drug levels w/frequency) (PT/INR on 05/16/17) - Advance Directives Code Status: Full Code - Rehabiliation Orders Rehab Orders: Evaluation for Physical Therapy, Evaluation for Occupational Therapy - Diet Orders No Concentrated Sweets (Diabetic diet), Cardiac CERTIFICATION: I certify that the transfer of the above named patient to an Extended Care Facility is necessary for the continuing treatment of the diagnosis listed. The above information is true and accurate reflection of patient's current condition. Confidential - Redisclosure prohibited without a patient's written consent.
--- NOTE | 2017-06-10 12:34 | Venous Imaging Report ---
LE Venous Duplex Patient Name:Venu Huddleston Order Number:[id number] Procedure Date:06/09/2017 Date:6Age:72 yrs Gender:Male Location:[facility] Room #: 3A63 Shoe Cleaner:Evangelina Troncoso RDCS Referring MD:Claudia Redmond MD Reading MD:Steve Mims MD Primary Indications:leg swelling, r/o DVT Secondary Indications: Risk Factors Yes/No Hx of DVT Yes Anticoagulants Yes Impressions: Normal bilateral lower extremity deep and superficial venous exam. Recommendations: After imaging the patient returned to their room. Findings Venous Duplex Results: Right: Venous imaging of the lower extremity reveals full patency and normal vessel compressibility of the right distal iliac, right common femoral, right superficial femoral, right popliteal, right posterior tibial, right peroneal, right great saphenous and right lesser saphenous. Doppler signals in the evaluated veins were normal. Left: Venous imaging of the lower extremity reveals full patency and normal vessel compressibility of the left distal iliac, left common femoral, left superficial femoral, left popliteal, left posterior tibial, left peroneal, left great saphenous and left lesser saphenous. Doppler signals in the evaluated veins were normal. Prior Study: No prior study available for comparison. Lower Extremity Venous Duplex Side Vein Compress Spontaneous Flow Augment Diameter (cm) Depth (cm) Right Distal Iliac Normal Yes Phasic Yes Right Common Femoral Normal Yes Phasic Yes Right Superficial Femoral Normal Yes Phasic Yes Right Popliteal Normal Yes Phasic Yes Right Posterior Tibial Normal Yes Phasic Yes Right Peroneal Normal Yes Phasic Yes Right Great Saphenous Normal Yes Phasic Yes Right Lesser Saphenous Normal Yes Phasic Yes Left Distal Iliac Normal Yes Phasic Yes Left Common Femoral Normal Yes Phasic Yes Left Superficial Femoral Normal Yes Phasic Yes Left Popliteal Normal Yes Phasic Yes Left Posterior Tibial Normal Yes Phasic Yes Left Peroneal Normal Yes Phasic Yes Left Great Saphenous Normal Yes Phasic Yes Left Lesser Saphenous Normal Yes Phasic Yes Updated by Steve Mims MD on 06/10/2017 12:28:44 PM electronically signed on 06/10/2017 12:29:18 PM with status of Final
[2017-06-11] MEDS ORDERED: *HR* Warfarin 2 MG TABLET PO SCH (18:00)
== END 2017-06-10 13:40 | DRG 293 ==
LOC: EMEROO 19:48 → 3ANU 19:48 → SUATTDRO 22:08 → 3ANU 22:45 → SUATTDRO 06-09 12:33
PROVIDERS: ADMIT Internal Medicine; ATTEND Internal Medicine

== ENCOUNTER 2017-06-18 21:30 | Inpatient (IN) ==
[2017-06-18] MEDS ORDERED: 0.9 % Sodium Chloride 1,000 ML IVC ONE (21:35)
[2017-06-18 21:50] LABS: Basophils % 0.5 %; Eosinophils # 0.1 K/mcL (0.0-0.6); Eosinophils % 1.6 %; Hematocrit 29.5 % (37.5-50.1); Hemoglobin 9.6 g/dL (12.9-16.9); Immature Granulocytes % 0.7 % (0-4); Immature Platelets 3.8 % (1.1-6.1); Lymphocytes # 0.9 K/mcL (0.6-4.6); Lymphocytes % 10.4 %; Mean Corpuscular HGB Conc 32.5 g/dL (31.6-35.5); Mean Corpuscular Volume 95.2 fL (83.0-100.0); Mean Platelet Volume 9.8 fL (9.4-12.4); Monocytes % 11.4 %; Neutrophils # 6.5 K/mcL (1.6-8.9); Platelet Count 288 K/mcL (140-400); Red Cell Distribution Width 18.3 % (11.5-14.5); Segmented Neutrophils % 75.4 %
[2017-06-18 21:59] LABS: Bilirubin,Urine Negative (Negative); Blood,Urine Negative (Negative); Clarity,Urine Cloudy (Clear); Color,Urine Yellow (Yellow); Glucose,Urine (UA) Normal (Normal); Ketones,Urine Negative (Negative); Leukocyte Esterase,Urine Negative (Negative); Nitrite,Urine Negative (Negative); Protein,Urine Negative (Neg-Trace); Specific Gravity,Urine 1.016 (1.010-1.025); Urobilinogen,Urine Normal (Normal)
[2017-06-18 22:02] LABS: Bacteria,Urine None Seen per hpf (None-Few); Hyaline Casts,Urine None Seen per lpf (None-Few); RBC,Urine 0-3 per hpf (0-3); Squamous Epithelial Cell,Urine None Seen per lpf (None-Few); WBC,Urine 0-3 per hpf (0-3)
--- NOTE | 2017-06-18 22:04 | Emergency Department Note ---
Disposition Clinical Impression: Warfarin-induced coagulopathy, Painful orthopaedic hardware, Status post revision of total hip Post-op bleeding Qualifiers: Procedure type: non-circulatory Hip dislocation, left Qualifiers: Encounter type: initial encounter Qualified Code(s): S73.005A - Unspecified dislocation of left hip, initial encounter Disposition: Admitted As Inpatient Condition: Fair Forms: ED Satisfaction Letter Time of Disposition: 00:25 Lower Extremity Injury HPI - General Chief Complaint: ED Extremity Injury, Lower Stated Complaint: left hip pain Time Seen by Provider: 06/18/17 21:35 Source: patient, EMS Mode of arrival: EMS Limitations: no limitations Nursing Notes Reviewed: Yes Vital Signs Reviewed: Yes - History of Present Illness HPI Narrative: Patient arrives to the ED via EMS and was seen and evaluated immediately upon arrival. Patient reportedly had a total hip replacement revision on 06/01, here. He had a somewhat complicated postsurgical course and did develop a postoperative hematoma. He was just discharged from the hospital yesterday after a PICC line was placed due to suspected infection overlying the surgical site. Patient is presenting now for increasing and intractable left hip pain as well as significant pain, swelling and bleeding from the surgical site. He is on Coumadin. He denies any trauma or injury. He has no headache, neck pain, fever , chills, chest pain, shortness of breath, abdominal pain, vomiting, melena, hematochezia, dysuria or hematuria. He has no numbness in his legs, but does have significant pain. - Related Data Home Medications Medication Instructions Recorded Confirmed Furosemide [Lasix] 20 mg PO Q48H 04/13/15 06/08/17 GlipiZIDE [Glucotrol] 7.5 mg PO BID 04/13/15 06/08/17 Atorvastatin [Lipitor] 10 mg PO HS 10/16/15 06/08/17 Amiodarone [Cordarone] 200 mg PO DAILY 02/08/16 06/08/17 Lactobacillus [Culturelle] 1 each PO DAILY 02/08/16 06/08/17 Albuterol Sulfate [Albuterol 2 puff IH QID PRN 06/01/17 06/08/17 Inhaler] Brimonidine Tartrate [Alphagan P] 1 drop BOTH EYES TID 06/01/17 06/08/17 Cholecalciferol (Vitamin D3) 2,000 unit PO DAILY 06/01/17 06/08/17 [Vitamin D3] Furosemide [Lasix] 40 mg PO Q48H 06/01/17 06/08/17 Levothyroxine [Synthroid] 50 mcg PO QAM 06/01/17 06/08/17 Losartan Potassium [Cozaar] 100 mg PO DAILY 06/01/17 06/08/17 Metformin HCl [Glucophage] 1,000 mg PO BID 06/01/17 06/08/17 Metoprolol Succinate 25 mg PO DAILY 06/01/17 06/08/17 Sertraline [Zoloft] 100 mg PO QPM 06/01/17 06/08/17 Warfarin [Coumadin] 2 mg PO TH 06/01/17 06/08/17 Warfarin [Coumadin] 4 mg PO SUMOTUWEFRSA 06/01/17 06/08/17 amLODIPine [Norvasc] 5 mg PO DAILY 06/01/17 06/08/17 Bisacodyl [Dulcolax] 5 mg PO BID 06/03/17 06/08/17 Clopidogrel [Plavix] 75 mg PO DAILY 06/03/17 06/08/17 Magnesium Hydroxide [Milk of 2,400 mg PO HS PRN 06/03/17 06/08/17 Magnesia] Polyethylene Glycol 3350 [MiraLAX] 17 gm PO BID PRN 06/03/17 06/08/17 Potassium Chloride [Klor-Con 10] 10 meq PO DAILY 06/03/17 06/08/17 Tiotropium [Spiriva] 18 mcg IH 0700 06/03/17 06/08/17 Travoprost [Travatan Z] 1 drop BOTH EYES HS 06/03/17 06/08/17 traZODone [TraZODone] 50 mg PO HS PRN 06/03/17 06/08/17 Previous Rx's Medication Instructions Recorded Doxycycline 100 mg PO BID #14 capsule 06/05/17 Docusate [Colace] 100 mg PO BID PRN capsule 06/06/17 Ferrous Sulfate 325 mg PO BIDWM tablet 06/06/17 Ipratropium/Albuterol Neb [Duoneb] 3 ml IH QID PRN #1 06/06/17 MOM Conc [MILK OF MAGNESIA conc] 10 ml PO DAILY PRN ud.liq 06/06/17 Docusate [Colace] 100 mg PO BID PRN capsule 06/10/17 OxyCODONE Immed Rel [Roxicodone 5 5 mg PO Q4HR PRN #9 tablet 06/10/17 MG] Pregabalin [Lyrica] 200 mg PO BID #14 capsule 06/10/17 Allergies Allergy/AdvReac Type Severity Reaction Status Date / Time azithromycin Allergy See Verified 06/01/17 16:50 Comments ceftriaxone Allergy See Verified 06/01/17 16:50 Comments morphine Allergy See Verified 06/01/17 16:50 Comments sulfamethoxazole AdvReac See Verified 06/01/17 16:50 [From Bactrim] Comments trimethoprim [From Bactrim] AdvReac See Verified 06/01/17 16:50 Comments All systems ED: reviewed and negative except as stated. Constitutional: Denies: fever Cardiovascular: Denies: chest pain Respiratory: Denies: dyspnea Gastrointestinal: Denies: vomiting Musculoskeletal: Reports: as per HPI Neurological: Denies: headache Past Medical History - Past Medical History Attestation: Yes The following information was validated with the patient. Source: patient, old records reviewed Medical history: Reports: atrial fibrillation, CHF, COPD, coronary artery disease, CVA, DVT, diabetes, GERD, hypertension, myocardial infarction, syncope , other Surgical history: Reports: appendectomy, carotid endarterectomy, coronary bypass (CABG), hip replacement, LE stent(s), vascular surgery, pacemaker Psychiatric history: Reports: anxiety, PTSD - Social History Smoking Status: Former smoker Smokeless Tobacco Status: No Alcohol use: Reports: none Drug use: Reports: none Physical Exam - General Limitations: no limitations General appearance: alert, in no apparent distress - Head Head exam: atraumatic, normocephalic, normal inspection - Eye Eye exam: Present: normal appearance, PERRL, EOMI - Chest Chest inspection: Present: normal inspection, symmetric chest wall rise - Respiratory Respiratory exam: Present: normal lung sounds bilaterally - Cardiovascular Cardiovascular exam: Present: regular rate, normal rhythm, normal heart sounds - Abdominal Exam Abdominal exam: Present: soft, Non-Tender. Absent: tenderness, distention, guarding, rebound, rigidity - Extremities Exam Extremities exam: Present: other (Left upper extremity PICC line) - Expanded Lower Extremity Exam Hip/Pelvis exam: Present: internal rotation, other (Patient still has a postop honeycomb dressing over his left hip. There is a very large hematoma underlying the dressing. There is some bleeding through the dressing, but is not actively hemorrhaging. The hematoma is quite tender and extends from the iliac crest down to proximally his mid thigh laterally. Patient does have some shortening of the hip and internal rotation and states that he cannot externally rotate it due to pain in his lateral hip.) Upper leg exam: Present: normal inspection, full ROM Knee exam: Present: normal inspection, full ROM Ankle exam: Present: normal inspection, full ROM Foot/toe exam: Present: normal inspection, full ROM Neurovascular/Tendon exam: Present: other (Mild peripheral edema, but has normal posterior tibial and dorsalis pedis pulses bilaterally) - Neurological Exam Neurological exam: Present: alert, oriented X3 - Psychiatric Psychiatric exam: Present: normal affect, normal mood - Skin Skin exam: Present: warm, dry, intact. Absent: normal color Course Course Narrative: Patient presenting with a suspected hemarthrosis versus postop hematoma. Patient is on Coumadin. Patient also with a PICC line for potentially infected hardware. Sepsis labs ordered, although patient appears well right now. We will also CT his hip with IV contrast to rule out abscess. - Reevaluation(s) Reevaluation #1: Patient has a prosthetic dislocation. Consult with orthopedics recommended admission and evaluation tomorrow. Patient has a slightly elevated INR, but will not reverse at this time. Patient admitted to hospitalist service. Vital Signs Temperature 98.4 F 06/18/17 21:34 Pulse Rate 72 06/18/17 21:34 Respiratory Rate 16 06/18/17 21:34 Blood Pressure 138/66 06/18/17 21:34 O2 Sat by Pulse Oximetry 95 06/18/17 21:34 Temperature 98.4 F 06/18/17 21:34 Pulse Rate 67 06/18/17 23:16 Respiratory Rate 20 06/18/17 23:16 Blood Pressure 126/50 06/18/17 23:16 O2 Sat by Pulse Oximetry 95 06/18/17 23:16 Oxygen Delivery Oxygen Delivery Room Air Extremity Injury, Lower - Medical Records Medical records reviewed: Yes I reviewed the patient's medical records. - Lab Data Lab results reviewed: Yes I reviewed the patient's lab results. Result diagrams: 06/18/17 21:40 06/18/17 21:40 Lab Results 06/18/17 06/18/17 06/18/17 Range/Units 21:40 21:40 21:40 WBC 8.6 (4.3-11.1) K/mcL RBC 3.10 L (4.19-5.50) M/mcL Hgb 9.6 L (12.9-16.9) g/dL Hct 29.5 L (37.5-50.1) % MCV 95.2 (83.0-100.0) fL MCH 31.0 (28.0-33.3) pg MCHC 32.5 (31.6-35.5) g/dL RDW 18.3 H (11.5-14.5) % Plt Count 288 (140-400) K/mcL MPV 9.8 (9.4-12.4) fL Immature Gran % 0.7 (0-4) % Seg Neutrophils % 75.4 % Lymphocytes % 10.4 % Monocytes % 11.4 % Eosinophils % 1.6 % Basophils % 0.5 % Neutrophils # 6.5 (1.6-8.9) K/mcL Lymphocytes # 0.9 (0.6-4.6) K/mcL Monocytes # 1.0 (0.0-1.3) K/mcL Eosinophils # 0.1 (0.0-0.6) K/mcL Basophils # 0.0 (0.0-0.2) K/mcL Immature Plt Fraction 3.8 (1.1-6.1) % PT 27.3 H (9.4-12.1) Seconds INR 2.5 APTT 37.2 H (26.0-36.0) Seconds Sodium 134 L (136-145) mEq/L Potassium 4.2 (3.5-4.5) mEq/L Chloride 97 L (98-109) mEq/L Carbon Dioxide 27 (19-29) mEq/L BUN 20 (8-26) mg/dL Creatinine 1.11 (0.72-1.25) mg/dL Est GFR ( Amer) > 60 (> 60) Est GFR (Non-Af Amer) > 60 (> 60) BUN/Creatinine Ratio 18 (6-26) Glucose 75 (70-99) mg/dL Calculated Osmolality 279 L (280-300) Lactic Acid (0.5-2.2) mmol/L Calcium 9.5 (8.6-10.8) mg/dL Urine Color (Yellow) Urine Clarity (Clear) Urine pH (5.0-8.0) pH Units Ur Specific [place] (1.010-1.025) Urine Protein (Neg-Trace) mg/dL Urine Glucose (UA) (Normal) mg/dL Urine Ketones (Negative) mg/dL Urine Blood (Negative) Urine Nitrite (Negative) Urine Bilirubin (Negative) Urine Urobilinogen (Normal) mg/dL Ur Leukocyte Esterase (Negative) Urine Microscopic RBC (0-3) per hpf Urine Microscopic WBC (0-3) per hpf Ur Squamous Epith Cells (None-Few) per lpf Urine Bacteria (None-Few) per hpf Hyaline Casts (None-Few) per lpf Ur Culture Indicated? (NO) Blood Type Antibody Screen 06/18/17 06/18/17 06/18/17 Range/Units 21:40 21:44 21:53 WBC (4.3-11.1) K/mcL RBC (4.19-5.50) M/mcL Hgb (12.9-16.9) g/dL Hct (37.5-50.1) % MCV (83.0-100.0) fL MCH (28.0-33.3) pg MCHC (31.6-35.5) g/dL RDW (11.5-14.5) % Plt Count (140-400) K/mcL MPV (9.4-12.4) fL Immature Gran % (0-4) % Seg Neutrophils % % Lymphocytes % % Monocytes % % Eosinophils % % Basophils % % Neutrophils # (1.6-8.9) K/mcL Lymphocytes # (0.6-4.6) K/mcL Monocytes # (0.0-1.3) K/mcL Eosinophils # (0.0-0.6) K/mcL Basophils # (0.0-0.2) K/mcL Immature Plt Fraction (1.1-6.1) % PT (9.4-12.1) Seconds INR APTT (26.0-36.0) Seconds Sodium (136-145) mEq/L Potassium (3.5-4.5) mEq/L Chloride (98-109) mEq/L Carbon Dioxide (19-29) mEq/L BUN (8-26) mg/dL Creatinine (0.72-1.25) mg/dL Est GFR ( Amer) (> 60) Est GFR (Non-Af Amer) (> 60) BUN/Creatinine Ratio (6-26) Glucose (70-99) mg/dL Calculated Osmolality (280-300) Lactic Acid 0.8 (0.5-2.2) mmol/L Calcium (8.6-10.8) mg/dL Urine Color Yellow (Yellow) Urine Clarity Cloudy A (Clear) Urine pH 7.0 (5.0-8.0) pH Units Ur Specific [place] 1.016 (1.010-1.025) Urine Protein Negative (Neg-Trace) mg/dL Urine Glucose (UA) Normal (Normal) mg/dL Urine Ketones Negative (Negative) mg/dL Urine Blood Negative (Negative) Urine Nitrite Negative (Negative) Urine Bilirubin Negative (Negative) Urine Urobilinogen Normal (Normal) mg/dL Ur Leukocyte Esterase Negative (Negative) Urine Microscopic RBC 0-3 (0-3) per hpf Urine Microscopic WBC 0-3 (0-3) per hpf Ur Squamous Epith Cells None Seen (None-Few) per lpf Urine Bacteria None Seen (None-Few) per hpf Hyaline Casts None Seen (None-Few) per lpf Ur Culture Indicated? NO (NO) Blood Type O POSITIVE Antibody Screen NEGATIVE 06/18/17 Range/Units 23:42 WBC (4.3-11.1) K/mcL RBC (4.19-5.50) M/mcL Hgb (12.9-16.9) g/dL Hct (37.5-50.1) % MCV (83.0-100.0) fL MCH (28.0-33.3) pg MCHC (31.6-35.5) g/dL RDW (11.5-14.5) % Plt Count (140-400) K/mcL MPV (9.4-12.4) fL Immature Gran % (0-4) % Seg Neutrophils % % Lymphocytes % % Monocytes % % Eosinophils % % Basophils % % Neutrophils # (1.6-8.9) K/mcL Lymphocytes # (0.6-4.6) K/mcL Monocytes # (0.0-1.3) K/mcL Eosinophils # (0.0-0.6) K/mcL Basophils # (0.0-0.2) K/mcL Immature Plt Fraction (1.1-6.1) % PT (9.4-12.1) Seconds INR APTT (26.0-36.0) Seconds Sodium (136-145) mEq/L Potassium (3.5-4.5) mEq/L Chloride (98-109) mEq/L Carbon Dioxide (19-29) mEq/L BUN (8-26) mg/dL Creatinine (0.72-1.25) mg/dL Est GFR ( Amer) (> 60) Est GFR (Non-Af Amer) (> 60) BUN/Creatinine Ratio (6-26) Glucose (70-99) mg/dL Calculated Osmolality (280-300) Lactic Acid 0.7 (0.5-2.2) mmol/L Calcium (8.6-10.8) mg/dL Urine Color (Yellow) Urine Clarity (Clear) Urine pH (5.0-8.0) pH Units Ur Specific [place] (1.010-1.025) Urine Protein (Neg-Trace) mg/dL Urine Glucose (UA) (Normal) mg/dL Urine Ketones (Negative) mg/dL Urine Blood (Negative) Urine Nitrite (Negative) Urine Bilirubin (Negative) Urine Urobilinogen (Normal) mg/dL Ur Leukocyte Esterase (Negative) Urine Microscopic RBC (0-3) per hpf Urine Microscopic WBC (0-3) per hpf Ur Squamous Epith Cells (None-Few) per lpf Urine Bacteria (None-Few) per hpf Hyaline Casts (None-Few) per lpf Ur Culture Indicated? (NO) Blood Type Antibody Screen - Radiology Data Radiology results reviewed: Yes I reviewed the patient's radiology results. - EKG Data EKG attestation: Yes I reviewed and interpreted this EKG. EKG results narrative: Sinus rhythm, rate 68, SD interval 193, QRS 105, QTC 456, right axis deviation, no acute ischemic changes S.B.A.R. - S.B.A.R. Situation: Demographics, MOA Background: Presenting Complaint, Relevant PMH, Meds, & Allergies Assessment: Vital Signs, Course and respsone to treatment, Exam Concerns, Patient/Family Expectation, Pertinant Lab Results, Outstanding Labs Recommendation: Barrier(s) to disposition, Recommendation based on pending studies, treatments, or consults SSuhas Report Given to: Dr. Ruy Lee Repor Time: 00:24
--- NOTE | 2017-06-18 22:10 | Emergency Department Note ---
START Narrative - START START: I examined this patient and my medical decision-making was reviewed with the Resident Physician. I agree with the documented findings, disposition and treatment plan as described except to the extent set forth below. 72 yo M here for left hip pain and wound check. started having some increasing pain and bleeding from the wound site tonight while walking. has infected hardware with a picc line. on IV antibiotics. will obtain CT to eval for worsening hematoma. on blood thinners.
[2017-06-18 22:11] LABS: INR 2.5; Prothrombin Time 27.3 Seconds (9.4-12.1)
[2017-06-18 22:14] LABS: Activated Partial Thrombo Time 37.2 Seconds (26.0-36.0)
[2017-06-18 22:34] LABS: BUN/Creatinine Ratio 18 (6-26); Blood Urea Nitrogen 20 mg/dL (8-26); Calcium 9.5 mg/dL (8.6-10.8); Carbon Dioxide 27 mEq/L (19-29); Chloride 97 mEq/L (98-109); Glucose 75 mg/dL (70-99); Osmolality,Calculated 279 (280-300); Potassium 4.2 mEq/L (3.5-4.5); Sodium 134 mEq/L (136-145); eGFR For African Americans > 60 (> 60); eGFR For Non-African Americans > 60 (> 60)
[2017-06-19] MEDS ORDERED: Acetaminophen 325 MG TABLET PO PRN (02:06)
[2017-06-19] MEDS ORDERED: Naloxone 0.4 MG/ML INJ IVP PRN (02:06)
[2017-06-19] MEDS ORDERED: D5% in Water 1,000 ML IVC PRN (02:14)
[2017-06-19] MEDS ORDERED: *HR* Dextrose 50 % in Water (Syg) 50 ML SYRINGE IVP PRN (02:14)
[2017-06-19] MEDS ORDERED: Dextrose Gel 15 GM PO PRN ×2 (02:14)
[2017-06-19] MEDS ORDERED: 0.9 % Sodium Chloride 1,000 ML IVC SCH (02:15)
[2017-06-19] MEDS ORDERED: *HR* OxyCODONE Immed Rel 5 MG TABLET PO PRN (02:21)
--- NOTE | 2017-06-19 02:25 | Internal Med History&Physical ---
Date of Encounter: 06/19/17 Time of Encounter: 01:00 Assessment and Plan (1) Hip dislocation, left Current visit: Yes Status: Acute Patient has left hip pain. S/P left hip replacement. CT scan shows dislocation. - Place patient on pain medication as needed. - Orthopedic consult for further management. - Place patient nothing by mouth at this point for possible procedure. Qualifiers: Encounter type: initial encounter Qualified Code(s): S73.005A - Unspecified dislocation of left hip, initial encounter (2) CHF (congestive heart failure) Current visit: No Status: Acute Appears euvolemic. We will resume home medication after verification Qualifiers: Congestive heart failure type: combined Congestive heart failure chronicity : acute on chronic Qualified Code(s): I50.43 - Acute on chronic combined systolic (congestive) and diastolic (congestive) heart failure (3) DVT prophylaxis Current visit: No Status: Acute Patient is on Coumadin. Coumadin is on hold right now for possible procedure. EPCD placed. (4) Atrial fibrillation Current visit: No Status: Chronic EKG shows a sinus rhythm at this point. Heart rate is well controlled. On Coumadin, INR therapeutic. - We will resume home medication after verification. - Hold the Coumadin for possible procedure. Qualifiers: Atrial fibrillation type: chronic Qualified Code(s): I48.2 - Chronic atrial fibrillation (5) CAD (coronary artery disease) Current visit: No Status: Chronic Patient denies chest pain at this point. We will resume home medication after verification Qualifiers: Coronary Disease-Associated Artery/Lesion type: [place] artery [place] vs. transplanted heart: [place] heart Associated angina: without angina Qualified Code(s): I25.10 - Atherosclerotic heart disease of [place] coronary artery without angina pectoris (6) COPD (chronic obstructive pulmonary disease) Current visit: No Status: Chronic Nebulizer as needed Qualifiers: COPD type: chronic bronchitis Chronic bronchitis type: simple Qualified Code(s): J41.0 - Simple chronic bronchitis (7) Diabetes Current visit: No Status: Chronic Will place the patient on sliding scale at this point Qualifiers: Diabetes mellitus type: type 2 Diabetes mellitus complication status: without complication Diabetes mellitus moth exterminator insulin use: unspecified moth exterminator insulin use status Qualified Code(s): E11.9 - Type 2 diabetes mellitus without complications (8) Hypertension Current visit: Yes Status: Acute BP is not high at this point. We will resume home medication after verification. Hydralazine when necessary for high blood pressure. Qualifiers: Hypertension type: essential hypertension Qualified Code(s): I10 - Essential (primary) hypertension Internal Medicine - H&P: HPI Chief complaint: Left hip pain Admitted From: Long-term Nursing Facility Plans for Post Hospital Care: Transfer Inp Rehab Fac History of present illness: Mr. Huddleston is a 72 year old male with history of diabetes, hypertension, CAD S/P CABG, A. fib on Coumadin, CHF, S/P hip replacement present to ER for left hip pain. Patient said pain started from today. Patient denies injury. Patient has no fever, no nausea, no vomiting. Denies chest pain or shortness of breath. In emergency room, CT left hip shows dislocation. Orthopedic consult was called by ER doctor. Patient was admitted for further management. Past Med Surg Social Fam HX - Past Medical History Medical history: atrial fibrillation, CHF, COPD, coronary artery disease, CVA, DVT, diabetes, GERD, hypertension, myocardial infarction, syncope Psychiatric history: anxiety, PTSD - Past Surgical History Surgical History: appendectomy, carotid endarterectomy, coronary bypass (CABG), hip replacement, LE stent(s), vascular surgery, pacemaker - Social History Smoking Status: Former smoker Smokeless Tobacco Status: No Alcohol use: none Drug use: none - Family History Father Living Status: Cause of : lupus Hx Family Cancer: Yes Internal Medicine - H&P: Meds Furosemide [Lasix] 20 mg PO Q48H 04/13/15 [History] GlipiZIDE [Glucotrol] 7.5 mg PO BID 04/13/15 [History] Atorvastatin [Lipitor] 10 mg PO HS 10/16/15 [History] Amiodarone [Cordarone] 200 mg PO DAILY 02/08/16 [History] Lactobacillus [Culturelle] 1 each PO DAILY 02/08/16 [History] Albuterol Sulfate [Albuterol Inhaler] 2 puff IH QID PRN 06/01/17 [History] Brimonidine Tartrate [Alphagan P] 1 drop BOTH EYES TID 06/01/17 [History] Cholecalciferol (Vitamin D3) [Vitamin D3] 2,000 unit PO DAILY 06/01/17 [History] Furosemide [Lasix] 40 mg PO Q48H 06/01/17 [History] Levothyroxine [Synthroid] 50 mcg PO QAM 06/01/17 [History] Losartan Potassium [Cozaar] 100 mg PO DAILY 06/01/17 [History] Metformin HCl [Glucophage] 1,000 mg PO BID 06/01/17 [History] Metoprolol Succinate 25 mg PO DAILY 06/01/17 [History] Sertraline [Zoloft] 100 mg PO QPM 06/01/17 [History] Warfarin [Coumadin] 2 mg PO TH 06/01/17 [History] Warfarin [Coumadin] 4 mg PO SUMOTUWEFRSA 06/01/17 [History] amLODIPine [Norvasc] 5 mg PO DAILY 06/01/17 [History] Bisacodyl [Dulcolax] 5 mg PO BID 06/03/17 [History] Clopidogrel [Plavix] 75 mg PO DAILY 06/03/17 [History] Magnesium Hydroxide [Milk of Magnesia] 2,400 mg PO HS PRN 06/03/17 [History] Polyethylene Glycol 3350 [MiraLAX] 17 gm PO BID PRN 06/03/17 [History] Potassium Chloride [Klor-Con 10] 10 meq PO DAILY 06/03/17 [History] Tiotropium [Spiriva] 18 mcg IH 0700 06/03/17 [History] Travoprost [Travatan Z] 1 drop BOTH EYES HS 06/03/17 [History] traZODone [TraZODone] 50 mg PO HS PRN 06/03/17 [History] Doxycycline 100 mg PO BID #14 capsule 06/05/17 [Rx] Docusate [Colace] 100 mg PO BID PRN capsule 06/06/17 [Rx] Ferrous Sulfate 325 mg PO BIDWM tablet 06/06/17 [Rx] Ipratropium/Albuterol Neb [Duoneb] 3 ml IH QID PRN #1 06/06/17 [Rx] MOM Conc [MILK OF MAGNESIA conc] 10 ml PO DAILY PRN ud.liq 06/06/17 [Rx] Docusate [Colace] 100 mg PO BID PRN capsule 06/10/17 [Rx] OxyCODONE Immed Rel [Roxicodone 5 MG] 5 mg PO Q4HR PRN #9 tablet 06/10/17 [Rx] Pregabalin [Lyrica] 200 mg PO BID #14 capsule 06/10/17 [Rx] 3 Allergy/AdvReac Type Severity Reaction Status Date / Time azithromycin Allergy See Verified 06/01/17 16:50 Comments ceftriaxone Allergy See Verified 06/01/17 16:50 Comments morphine Allergy See Verified 06/01/17 16:50 Comments sulfamethoxazole AdvReac See Verified 06/01/17 16:50 [From Bactrim] Comments trimethoprim [From Bactrim] AdvReac See Verified 06/01/17 16:50 Comments All Systems PM: A 10-system review of systems was performed and is negative for pertinent findings except as documented above in the HPI. - Constitutional Vitals: Temp Pulse Resp BP Pulse Ox 98.9 F 70 16 125/56 93 06/19/17 01:33 06/19/17 01:33 06/19/17 01:33 06/19/17 01:33 06/19/17 01:33 General appearance: Present: A&O X 3, no acute distress, answers questions appropriately - Head Head exam: Present: atraumatic, normocephalic - Eye Eye exam: Present: PERRL, conjuntiva pink, sclera anicteric Pupils: Present: PERRL - Neck Neck exam general surgery: Present: supple, trachea midline. Absent: lymphadenopathy - Respiratory Respiratory exam: Present: CTAB. Absent: accessory muscle use, rales, rhonchi, wheezes - Cardiovascular Cardiovascular exam: Present: RRR, +S1, +S2. Absent: diastolic murmur, gallop, rubs, systolic murmur - GI/Abdominal GI/Abdominal exam: Present: normal bowel sounds, soft, no peritoneal signs. Absent: distended, tenderness - Extremities Exam Extremities exam: Present: warm, radial pulses palpable and symmetrical. Absent : calf tenderness, cyanotic, pedal edema Additional comments: Left hip with swelling, tenderness, ROM limited due to pain - Neurological Exam Neurological exam: Present: CN II-XII intact, oriented X3, no focal deficits. Absent: pronater drift, facial droop, speech deficit - Skin Skin exam: Present: dry, intact Internal Med - H&P Results - Labs CBC & Chem 7: 06/18/17 21:40 06/18/17 21:40
[2017-06-19] MEDS ORDERED: Ipratropium/Albuterol Neb 3 ML IH PRN ×2 (03:23→09:42)
[2017-06-19 03:41] LABS: Basophils % 0.3 %; Eosinophils # 0.1 K/mcL (0.0-0.6); Eosinophils % 1.6 %; Hematocrit 26.9 % (37.5-50.1); Hemoglobin 8.7 g/dL (12.9-16.9); Immature Granulocytes % 0.4 % (0-4); Lymphocytes # 0.8 K/mcL (0.6-4.6); Lymphocytes % 11.1 %; Mean Corpuscular HGB Conc 32.3 g/dL (31.6-35.5); Mean Corpuscular Hemoglobin 30.3 pg (28.0-33.3); Mean Corpuscular Volume 93.7 fL (83.0-100.0); Mean Platelet Volume 10.2 fL (9.4-12.4); Monocytes # 0.8 K/mcL (0.0-1.3); Monocytes % 11.4 %; Neutrophils # 5.2 K/mcL (1.6-8.9); Platelet Count 234 K/mcL (140-400); Red Blood Count 2.87 M/mcL (4.19-5.50); Segmented Neutrophils % 75.2 %
[2017-06-19 03:44] LABS: INR 2.4; Prothrombin Time 26.3 Seconds (9.4-12.1)
[2017-06-19 04:12] LABS: BUN/Creatinine Ratio 20 (6-26); Blood Urea Nitrogen 18 mg/dL (8-26); Calcium 8.8 mg/dL (8.6-10.8); Carbon Dioxide 24 mEq/L (19-29); Chloride 101 mEq/L (98-109); Glucose 86 mg/dL (70-99); Osmolality,Calculated 279 (280-300); Potassium 3.7 mEq/L (3.5-4.5); Sodium 134 mEq/L (136-145); eGFR For African Americans > 60 (> 60); eGFR For Non-African Americans > 60 (> 60)
[2017-06-19] MEDS: Insulin LISPRO 300 UNITS/3 ML VIAL SQ SCH ×3 (06:12→18:29)
[2017-06-19] MEDS ORDERED: traZODone 50 MG TABLET PO PRN (09:42)
[2017-06-19] MEDS ORDERED: Sennosides/Docusate Sodium TABLET PO PRN (09:42)
[2017-06-19] MEDS ORDERED: Metoprolol XL (24 HR) Succ 25 MG TAB.ER.24H PO SCH (09:45)
[2017-06-19 10:45] LABS: C-Reactive Protein 175 mg/L (Less than 5)
[2017-06-19] MEDS ORDERED: DAPTOmycin 350 MG in 0.9 % Sodium Chloride 100 ML IVPB SCH (11:00)
--- NOTE | 2017-06-19 11:14 | Internal Med Progress Note ---
Date of Encounter: 06/19/17 Time of Encounter: 11:08 - Assessment and plan (1) Dislocation of internal left hip prosthesis, subsequent encounter Current Visit: Yes Status: Acute Assessment and plan: Reviewed CT of Hip Scheduled for surgery later today Will get an EKG now Will obtain 2 D Echo - since there is no 2 D Ehco done here from 10/2015 INR - 2.4 Held Coumadin Will give 2 U FFP prior to surgery Cont IV and PO analgesics PRN Consulted cardiology for pre op clearance (2) Status post revision of total hip Current Visit: Yes Status: Acute Assessment and plan: had 2 surgeries in 2 weeks -- which put him on high risk for infections and post op complications will cont monitoring closely (3) Infected prosthesis of left hip Current Visit: Yes Status: Acute Assessment and plan: Concerned for possible prosthesis infection 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0 - Simple chronic bronchitis (6) Atrial fibrillation Current Visit: No Status: Chronic Assessment and plan: rate controlled with Metoprolol held Coumadin or surgery Qualifiers: Atrial fibrillation type: paroxysmal Qualified Code(s): I48.0 - Paroxysmal atrial fibrillation (7) Diabetes Current Visit: No Status: Chronic Assessment and plan: on ISS Qualifiers: Diabetes mellitus type: type 2 Diabetes mellitus complication status: without complication Diabetes mellitus rat exterminator insulin use: unspecified rat exterminator insulin use status Qualified Code(s): E11.9 - Type 2 diabetes mellitus without complications (8) Systolic heart failure, chronic Current Visit: Yes Status: Chronic Assessment and plan: not in exacerbation held Lasix due to surgery gentle hydration only No recent 2 D Echo - will order now resumed other home meds (9) Hypertension Current Visit: Yes Status: Acute Assessment and plan: stable with current medication Qualifiers: Hypertension type: essential hypertension Qualified Code(s): I10 - Essential (primary) hypertension (10) DVT prophylaxis Current Visit: No Status: Resolved - Subjective Interval history: Mr. Huddleston is a 72 year old male with history of diabetes, hypertension, CAD S/P CABG, A. 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 Apparently he did have severe pain last night, for which he came to ER and had CT of Hip done which showed Left total hip arthroplasty dislocation with prosthetic head posteriorly and superiorly. Now he is alert, awake and O x3, pain 6/10, but tolerable with pain medication. - Constitutional Vitals: Temp Pulse Resp BP Pulse Ox 99.4 F 62 15 114/69 94 06/19/17 06:59 06/19/17 06:59 06/19/17 06:59 06/19/17 06:59 06/19/17 06:59 General appearance: Present: A&O X 3, no acute distress, answers questions appropriately - Head Head exam: Present: atraumatic, normal inspection - Neck Neck exam general surgery: Present: supple - Respiratory Respiratory exam: Present: decreased breath sounds, wheezes (mild). Absent: rales, respiratory distress, rhonchi - Cardiovascular Cardiovascular exam: Present: RRR, +S1, +S2. Absent: systolic murmur, tachycardia - GI/Abdominal GI/Abdominal exam: Present: normal bowel sounds, soft. Absent: rebound, rigid, tenderness - Extremities Exam Extremities exam: Present: tenderness (Left hip). Absent: calf tenderness, pedal edema Additional comments: non purulent sero sanguineous discharge through recent surgical incision site noticed. Swelling + Tenderness + Limited ROM in Left hp due to pain. Neuro vascular intact distally - Back Exam Back exam: Absent: CVA tenderness (L), CVA tenderness (R) - Neurological Exam Neurological exam: Present: alert, oriented X3 Internal Medicine: Result - Labs CBC & Chem 7: 06/19/17 03:05 06/19/17 03:05 Labs: Short CBC 06/19/17 Range/Units 03:05 WBC 6.9 (4.3-11.1) K/mcL Hgb 8.7 L (12.9-16.9) g/dL Hct 26.9 L (37.5-50.1) % Plt Count 234 (140-400) K/mcL Neutrophils # 5.2 (1.6-8.9) K/mcL BMP 06/19/17 03:05 Sodium 134 L Potassium 3.7 Chloride 101 Carbon Dioxide 24 BUN 18 Creatinine 0.88 Glucose 86 Calcium 8.8 - ABG Interpretation ABG results: PT/INR, D-dimer PT 26.3 Seconds (9.4-12.1) H 06/19/17 03:05 - VTE Documentation of Mechanical Device: Intermittent pneumatic compression device Consult Discharge Plan - Plan [facility]errals: [facility] [Primary Care Provider] -
[2017-06-19] MEDS ORDERED: 0.9 % Sodium Chloride 250 ML ONE ×2 (11:50→15:28)
--- NOTE | 2017-06-19 12:26 | Cardiology Consult Note ---
Date of Encounter: 06/19/17 Time of Encounter: 13:15 Assessment and Plan (1) Pre-operative cardiovascular examination, high risk surgery Current Visit: Yes Status: Acute Post-operative left open revision femoral head on 06/04/17 with complication of left hip hematoma and concern of prosthetic infection, possible requiring open revision hip surgery. Patient denies CP or worsening SOB. Pacemaker checked on 06/01/17 and functioning properly. EKG independently read demonstrates sinus rhythm with possible right ventricular hypertropy, no signs of ischemia. LHC demonstrated EF = 45% with severe [place] vessel CAD s/p CABG 2 out of 2 patent bypass grafts. Last stress test on 04/14/15 was negative for ischemia with EF = 59%. Continue with Lipitor, hydralazine, metoprolol. Echo reveals EF = 55-60% with moderate RV dilation and moderate pulmonary HTN consistent with chronic COPD. Patient is cleared to proceed with surgery on a cardiac standpoint. Thank you for your consult. (2) CAD (coronary artery disease) Current Visit: No Status: Chronic History of CABG with 2 bypass grafts with work-up as stated above. No acute signs of ischemia. Echo is consistent with chronic COPD and negative for ischemia. Continue with lipitor 10mg PO QHS, Metoprolol Succinate 25mg PO. Started on ASA. Qualifiers: Coronary Disease-Associated Artery/Lesion type: [place] artery [place] vs. transplanted heart: [place] heart Associated angina: without angina Qualified Code(s): I25.10 - Atherosclerotic heart disease of [place] coronary artery without angina pectoris (3) CHF (congestive heart failure) Current Visit: No Status: Acute Patient has history of CHF. Initial CXR negative for acute cardiopulmonary disease. Patient denies cough, worsening dypsnea, fatigue. Worsening lower extremity edema and pain secondary to multiple surgeries this month with post- operative hematoma. VS are stable. No JVD noted. Echocardiogram reveals EF = 55 -60% with RV dilation, moderate diastolic dysfunction, and moderate pulmonary HTN, consistent with chronic COPD. Qualifiers: Congestive heart failure type: combined Congestive heart failure chronicity : acute on chronic Qualified Code(s): I50.43 - Acute on chronic combined systolic (congestive) and diastolic (congestive) heart failure Discussion w patient/family: The assessment and plan as outlined above was discussed with the patient and/or family members who expressed understanding and agreement. All questions were answered. Thank you for involving us in the care of your patient. Please call with any questions. History of Present Illness Consult date: 06/19/17 Consult reason: Pre-operative risk stratification Chief complaint: worsening hip pain, sweeling, and bleeding History of present illness: Mr. Huddleston is a 72 year old male with extensive medical history presents with worsening hip pain, swelling, bleeding from recent left hip surgery site with concerns of prosthetic infection. Patient reports bilateral hip replacement 17+ years ago. He developed worsening left hip pain for the 1+ year and required left hip removal of hardware and hip arthrotomy exploration on 06/01/17. Patient became unbalanced and had a fall, which required Left revision femoral head length of total hip on 06/04/17. Increased hip pain, sweeling, bleeding since surgery and CT hip determine post-operative hematoma. Patient denies fever, chills, weakness, dizziness, lightheadedness, chest pain, palpitations, cough, n/v/d. Admits to SOB with exertion for many years. Admits to increased left leg swelling, decreased left leg mobility, since surgery. Denies history of smoking, denies alcohol or illicit substance intake. Past Med Surg Social Fam HX - Past Medical History Medical history: atrial fibrillation, CHF, COPD, coronary artery disease, CVA, DVT, diabetes, GERD, hypertension, myocardial infarction, syncope Psychiatric history: anxiety, PTSD - Past Surgical History Surgical History: appendectomy, carotid endarterectomy, coronary bypass (CABG), hip replacement, LE stent(s), vascular surgery, pacemaker - Social History Smoking Status: Former smoker Smokeless Tobacco Status: No Alcohol use: none Drug use: none - Family History Father Living Status: Cause of : lupus Hx Family Cancer: Yes Medications and Allergies GlipiZIDE [Glucotrol] 7.5 mg PO BID 04/13/15 [History] Atorvastatin [Lipitor] 10 mg PO HS 10/16/15 [History] Albuterol Sulfate [Albuterol Inhaler] 2 puff IH QID PRN 06/01/17 [History] Cholecalciferol (Vitamin D3) [Vitamin D3] 2,000 unit PO DAILY 06/01/17 [History] Metoprolol Succinate 25 mg PO DAILY 06/01/17 [History] Sertraline [Zoloft] 100 mg PO QPM 06/01/17 [History] Warfarin [Coumadin] 2 mg PO TH 06/01/17 [History] Warfarin [Coumadin] 4 mg PO SUMOTUWEFRSA 06/01/17 [History] amLODIPine [Norvasc] 5 mg PO DAILY 06/01/17 [History] Magnesium Hydroxide [Milk of Magnesia] 2,400 mg PO HS PRN 06/03/17 [History] Polyethylene Glycol 3350 [MiraLAX] 17 gm PO BID PRN 06/03/17 [History] Tiotropium [Spiriva] 18 mcg IH 0700 06/03/17 [History] Travoprost [Travatan Z] 1 drop BOTH EYES HS 06/03/17 [History] traZODone [TraZODone] 50 mg PO HS PRN 06/03/17 [History] Ipratropium/Albuterol Neb [Duoneb] 3 ml IH QID PRN #1 06/06/17 [Rx] Clopidogrel [Plavix] 75 mg PO DAILY 06/19/17 [History] Ferrous Sulfate [Iron] 325 mg PO BID 06/19/17 [History] Furosemide [Lasix] 40 mg PO DAILY PRN 06/19/17 [History] Levothyroxine [Synthroid] 50 mcg PO 0630 06/19/17 [History] MOM Conc [MILK OF MAGNESIA conc] 30 ml PO HS PRN 06/19/17 [History] OxyCODONE Immed Rel [Roxicodone 5 MG] 5 mg PO Q4H PRN 06/19/17 [History] Pregabalin [Lyrica] 150 mg PO TID 06/19/17 [History] Sennosides/Docusate Sodium [Senna-Docusate Sodium Tablet] 2 tab PO BID PRN 06/19 [History] 3 Allergy/AdvReac Type Severity Reaction Status Date / Time azithromycin Allergy See Verified 06/19/17 09:01 Comments ceftriaxone Allergy See Verified 06/19/17 09:01 Comments morphine Allergy See Verified 06/19/17 09:01 Comments sulfamethoxazole AdvReac See Verified 06/19/17 09:01 [From Bactrim] Comments trimethoprim [From Bactrim] AdvReac See Verified 06/19/17 09:01 Comments All Systems Review: A 10-system review of systems was performed and is negative for pertinent findings except as documented above in the HPI. Physical Examination Vital Signs, Last 4 Hours Temp Pulse Resp BP Pulse Ox 06/19/17 12:17 98.6 F 63 15 113/61 94 06/19/17 12:02 98.5 F 66 15 116/64 93 General: Conversant, No Apparent Distress HEENT: Atraumatic, Normocephaly, Mucus Membranes Moist Neck: No JVD, Normal carotid pulses Cardiac: Reg Rate and Rhythm, Normal S1 and S2, No Murmur Lungs: Normal Breath Sounds, No Wheeze, Rales, Rhonchi Neuro: Alert and responsive, Other (Left LE 3/5 strength. All other extremities 5/5. Tender to touch on light palpation of Left lower extremity. ) Abdomen: Soft, Non-Tender Skin: No rashes noted on visualized skin Musculoskeletal: No Chest Wall Tenderness Extremities: No Clubbing, No Cyanosis, Normal Pulses, Other (BL lower extremity edema 3+) Results 06/19/17 03:05 06/19/17 03:05 Lab Results 06/19/17 06/19/17 06/19/17 03:05 03:05 03:05 WBC 6.9 Hgb 8.7 L Hct 26.9 L Plt Count 234 INR 2.4 Sodium 134 L Potassium 3.7 Chloride 101 Carbon Dioxide 24 BUN 18 Creatinine 0.88 Glucose 86 Calcium 8.8 Consult Discharge Plan - Plan [facility]errals: [facility] [Primary Care Provider] -
--- NOTE | 2017-06-19 13:31 | Orthopedic Consult Note ---
Date of Encounter: 06/19/17 Time of Encounter: 13:10 Assessment and Plan (1) Dislocation of internal left hip prosthesis, initial encounter Current Visit: No Status: Acute Patient's plan reviewed and discussed in depth with patient, and . is currently out of town, and and on board. Plan: Left Hip Closed Reduction 06/19/17, with wound assessment. Continue IV Antibiotics, hospitalist has changed to Zosyn and Daptomycin. D/C' ed Zyvox. Continue with daily dressing changes and cleanses as needed for saturation. ESR elevated 38 CRP elevated 175 WBC normal. Consent was reviewed and discussed, patient signed. ID consulted for antibiotic recommendations due to history of VRE, failure of PO antibiotics and patients allergy to multiple antibiotics. Kidney function stable currently. No evidence of intra-articular infection at this time, but opting to treat surgical site infection aggressively secondary to his history of revision surgery and previous infection. If pain worsens in hip, or evidence of infection worsens, may consider an attempted aspiration of hip through IR this weekend. If closed reduction is successful, plan [facility]. Following up with on Thursday morning at 7AM. If closed reduction is unsuccessful, he will likely need to remain inpatient for continued IV antibiotic treatment and possible revision Total hip surgery with for Thursday. His is going to get [facility] hip [facility] today, and this is to be placed post-operatively for stability. (2) Superficial incisional surgical site infection Current Visit: Yes Status: Acute Qualifiers: Encounter type: initial encounter Qualified Code(s): T81.4XXA - Infection following a procedure, initial encounter History of Present Illness Chief complaint: Left Hip dislocation of prosthesis HPI: Mr. Huddleston is a 72 year old male, well known to orthopedic practice. History: Left revision femoral head length of total hip. 06/04/17; Left hip Arthrotomy, wound closure 06/01/17 Pt previously was admitted 06/01/17 for Left Hip Exploration, removal of plate - Cultures negative to date. Discharged home on 06/02/17. He was readmitted 06/03 - 06/06 with respiratory failure, accidental overdose, dislocation left hip s/p fall at home. He was dc'd to [facility] on 06/06 on oral Doxycycline secondary to minimal serusanginous drainage from Left hip Revision wound. No evidence of intra-articular infection. Cultures from 06/04 surgery all negative to date. No evidence of infection intra-operatively. Patient was again readmitted with CHF, 06/07-06/10. Pt was sent from SNF with bilateral leg swelling. His Lasix was held during his rehab. Bilat dopplers were negative for DVT. Swelling improved with Lasix. Pt [facility] , with 3 days left of Oral Doxycycline and with minimal serusanginous drainage from incision. [facility] instructed to complete Doxycycline (LD: 06/15) and perform BID wound cleanses and dressing changes. Hip Tscope brace D/C'ed at that time due to swelling and CHF. Follow up call to ID on -:. Patient is on Lasix 40 mg at facility. Incision is dong well and patient is using a scooter to get around. [facility] called our office on 06/18 with reports of erythema and wound drainage. Patient was seen in office by myself and on 06/18 with noted increase in superficial erythema, no drainage and slight proximal wound dehiscence. Minimal tenderness to incision. Patient ambulating with hip and able to perform [id number] position with assistance. XRAYS on 06/18 showed intact hardware with hip intact. Decision was made to start IV ABX and Midline placed secondary to patient's failure to improve with PO antibiotics, as well as worsening erythema. 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 He has an extensive list of allergies to antibiotics as well. Pharmacy was consulted yesterday to discuss appropriate management of his Superficial wound infection, they recommended starting Zyvox 600mg BID x 14 days , along with Zosyn 3.375mg infused over 4 hours Q 8 hours for gram negative coverage. These were initiated, and patient was discharged back to ID that afternoon. Patient states he went to dinner on 06/18, got back into bed, shifted and felt an increase in LEft Hip pain. He denies trauma or falling. Incision started bleeding, and he was no longer able to move his hip. Patient was sent to ED, he is currently anti-coagulated for A.Fib. He denies N/T, or radiation of pain. LLE presents in ER, shortened position. CT of hip: IMPRESSION 1. Left total hip arthroplasty dislocation, with the prosthetic head posteriorly and superiorly. 2. There is fat stranding deep to the anahi, but a definite focal fluid collection is not identified. Again, evaluation the soft tissue structures is limited given the extensive amount of streak artifact from the hardware. 3. Evidence of a cortical stress fracture along the lateral aspect of the femur, the clinical significance of which is not clear as the fixation plate traverses that location. 4. At least a moderate amount of fluid within the iliopsoas bursa is found EXAM: LLE - Swelling and erythema noted along incision Bleeding from distal incision; slight proximal wound dehiscence, anahi in place. No calf tendernesss, tenderness along posterior hip and greater Trochanteric region. ROM limited NV intact distally. Past Med Surg Social Fam HX - Past Medical History Medical history: atrial fibrillation, CHF, COPD, coronary artery disease, CVA, DVT, diabetes, GERD, hypertension, myocardial infarction, syncope Psychiatric history: anxiety, PTSD - Past Surgical History Surgical History: appendectomy, carotid endarterectomy, coronary bypass (CABG), hip replacement, LE stent(s), vascular surgery, pacemaker - Social History Smoking Status: Former smoker Smokeless Tobacco Status: No Alcohol use: none Drug use: none - Family History Father Living Status: Cause of : lupus Hx Family Cancer: Yes Medications and Allergies GlipiZIDE [Glucotrol] 7.5 mg PO BID 04/13/15 [History] Atorvastatin [Lipitor] 10 mg PO HS 10/16/15 [History] Albuterol Sulfate [Albuterol Inhaler] 2 puff IH QID PRN 06/01/17 [History] Cholecalciferol (Vitamin D3) [Vitamin D3] 2,000 unit PO DAILY 06/01/17 [History] Metoprolol Succinate 25 mg PO DAILY 06/01/17 [History] Sertraline [Zoloft] 100 mg PO QPM 06/01/17 [History] Warfarin [Coumadin] 2 mg PO TH 06/01/17 [History] Warfarin [Coumadin] 4 mg PO SUMOTUWEFRSA 06/01/17 [History] amLODIPine [Norvasc] 5 mg PO DAILY 06/01/17 [History] Magnesium Hydroxide [Milk of Magnesia] 2,400 mg PO HS PRN 06/03/17 [History] Polyethylene Glycol 3350 [MiraLAX] 17 gm PO BID PRN 06/03/17 [History] Tiotropium [Spiriva] 18 mcg IH 0700 06/03/17 [History] Travoprost [Travatan Z] 1 drop BOTH EYES HS 06/03/17 [History] traZODone [TraZODone] 50 mg PO HS PRN 06/03/17 [History] Ipratropium/Albuterol Neb [Duoneb] 3 ml IH QID PRN #1 06/06/17 [Rx] Clopidogrel [Plavix] 75 mg PO DAILY 06/19/17 [History] Ferrous Sulfate [Iron] 325 mg PO BID 06/19/17 [History] Furosemide [Lasix] 40 mg PO DAILY PRN 06/19/17 [History] Levothyroxine [Synthroid] 50 mcg PO 0630 06/19/17 [History] MOM Conc [MILK OF MAGNESIA conc] 30 ml PO HS PRN 06/19/17 [History] OxyCODONE Immed Rel [Roxicodone 5 MG] 5 mg PO Q4H PRN 06/19/17 [History] Pregabalin [Lyrica] 150 mg PO TID 06/19/17 [History] Sennosides/Docusate Sodium [Senna-Docusate Sodium Tablet] 2 tab PO BID PRN 06/19 [History] 3 Allergy/AdvReac Type Severity Reaction Status Date / Time azithromycin Allergy See Verified 06/19/17 09:01 Comments ceftriaxone Allergy See Verified 06/19/17 09:01 Comments morphine Allergy See Verified 06/19/17 09:01 Comments sulfamethoxazole AdvReac See Verified 06/19/17 09:01 [From Bactrim] Comments trimethoprim [From Bactrim] AdvReac See Verified 06/19/17 09:01 Comments All Systems Reviewed: A 10-system review of systems was performed and is negative for pertinent findings except as documented above in the HPI. - Constitutional Constitutional: as per HPI, weakness, no fever(s), no frequent falls - Cardiovascular Cardiovascular: as per HPI - Respiratory Respiratory: as per HPI - Musculoskeletal Musculoskeletal: as per HPI Physical Exam - Constitutional Vitals: Temp Pulse Resp BP Pulse Ox 98.6 F 63 15 113/61 94 06/19/17 12:17 06/19/17 12:17 06/19/17 12:17 06/19/17 12:17 06/19/17 12:17 General appearance IM: A&O X 3, pleasant, no acute distress, answers questions appropriately Results - Labs Result Diagrams: 06/19/17 03:05 06/19/17 03:05 Labs: Abnormal lab results RBC 2.87 M/mcL (4.19-5.50) L 06/19/17 03:05 Hgb 8.7 g/dL (12.9-16.9) L 06/19/17 03:05 Hct 26.9 % (37.5-50.1) L 06/19/17 03:05 RDW 18.0 % (11.5-14.5) H 06/19/17 03:05 ESR 38 mm/hr (0-10) H 06/19/17 03:05 PT 26.3 Seconds (9.4-12.1) H 06/19/17 03:05 APTT 37.2 Seconds (26.0-36.0) H 06/18/17 21:40 Sodium 134 mEq/L (136-145) L 06/19/17 03:05 POC Glucose 106 (58-89) H 06/19/17 11:58 Calculated Osmolality 279 (280-300) L 06/19/17 03:05 C-Reactive Protein 175 mg/L (Less than 5) H 06/19/17 03:05 Urine Clarity Cloudy (Clear) A 06/18/17 21:44 H & H 06/19/17 Range/Units 03:05 Hgb 8.7 L (12.9-16.9) g/dL Hct 26.9 L (37.5-50.1) % All other labs normal. - Diagnostic results Hip CT: report reviewed, image reviewed Consult Discharge Plan - Plan [facility]errals: [facility] [Primary Care Provider] -
[2017-06-19] MEDS: Pregabalin 75 MG CAPSULE PO SCH ×2 (15:45→20:28)
[2017-06-19] MEDS ORDERED: Piperacillin/Tazobactam 3.375 GM in D5% in Water (Mini-Bag+) 100 ML IVPB SCH (16:00)
--- NOTE | 2017-06-19 16:33 | Event Note ---
Date of Encounter: 06/19/17 Time of Encounter: 11:30 Patient's at bedside. Patient resting comfortably in bed alert and conversive. Hip Tscope brace brought to hospital by .
--- NOTE | 2017-06-19 18:42 | Electrocardiograph Report ---
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
--- NOTE | 2017-06-19 18:43 | Electrocardiograph Report ---
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
[2017-06-19 18:57] LABS: INR 1.6; Prothrombin Time 17.6 Seconds (9.4-12.1)
[2017-06-19] MEDS ORDERED: Latanoprost 2.5 ML BOTTLE BOTH EYES SCH (21:00)
[2017-06-19] MEDS ORDERED: Ringers Solution, Lactated 1,000 ML ONE (23:56)
[2017-06-20] MEDS: Insulin LISPRO 300 UNITS/3 ML VIAL SQ SCH ×5 (00:06→21:12)
--- NOTE | 2017-06-20 00:28 | Anesthesia Evaluation PreOp ---
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 Any Significant HX Other Medical History: Diabetes Type II, Thyroid, Other (hx DVT) Anesthesia History: No Prior Anesthetic Complications Alcohol Use: none Drug use: none Medications and Allergies GlipiZIDE [Glucotrol] 7.5 mg PO BID 04/13/15 [History] Atorvastatin [Lipitor] 10 mg PO HS 10/16/15 [History] Albuterol Sulfate [Albuterol Inhaler] 2 puff IH QID PRN 06/01/17 [History] Cholecalciferol (Vitamin D3) [Vitamin D3] 2,000 unit PO DAILY 06/01/17 [History] Metoprolol Succinate 25 mg PO DAILY 06/01/17 [History] Sertraline [Zoloft] 100 mg PO QPM 06/01/17 [History] Warfarin [Coumadin] 2 mg PO TH 06/01/17 [History] Warfarin [Coumadin] 4 mg PO [id number] 06/01/17 [History] amLODIPine [Norvasc] 5 mg PO DAILY 06/01/17 [History] Magnesium Hydroxide [Milk of Magnesia] 2,400 mg PO HS PRN 06/03/17 [History] Polyethylene Glycol 3350 [MiraLAX] 17 gm PO BID PRN 06/03/17 [History] Tiotropium [Spiriva] 18 mcg IH 0700 06/03/17 [History] Travoprost [Travatan Z] 1 drop BOTH EYES HS 06/03/17 [History] traZODone [TraZODone] 50 mg PO HS PRN 06/03/17 [History] Ipratropium/Albuterol Neb [Duoneb] 3 ml IH QID PRN #1 06/06/17 [Rx] Clopidogrel [Plavix] 75 mg PO DAILY 06/19/17 [History] Ferrous Sulfate [Iron] 325 mg PO BID 06/19/17 [History] Furosemide [Lasix] 40 mg PO DAILY PRN 06/19/17 [History] Levothyroxine [Synthroid] 50 mcg PO 0630 06/19/17 [History] MOM Conc [MILK OF MAGNESIA conc] 30 ml PO HS PRN 06/19/17 [History] OxyCODONE Immed Rel [Roxicodone 5 MG] 5 mg PO Q4H PRN 06/19/17 [History] Pregabalin [Lyrica] 150 mg PO TID 06/19/17 [History] Sennosides/Docusate Sodium [Senna-Docusate Sodium Tablet] 2 tab PO BID PRN 06/19 [History] 3 Allergy/AdvReac Type Severity Reaction Status Date / Time azithromycin Allergy See Verified 06/19/17 09:01 Comments ceftriaxone Allergy See Verified 06/19/17 09:01 Comments morphine Allergy See Verified 06/19/17 09:01 Comments sulfamethoxazole AdvReac See Verified 06/19/17 09:01 [From Bactrim] Comments trimethoprim [From Bactrim] AdvReac See Verified 06/19/17 09:01 Comments - Meds/Allergy Pre-op Review Medications Reviewed: Yes Allergies Reviewed: Yes Beta Blockers on Current Med List: Yes (metoprolol) If Beta Blockers taken, Date/Time (Last Dose taken): 06-19-2017 11:22 Anesthesia Results - Labs 06/19/17 03:05 06/19/17 03:05 - Imaging EKG: report reviewed, image reviewed (SINUS RHYTHM PROLONGED QT INTERVAL) Additional studies: TTE: Impressions: Normal LV systolic function, LVEF 55-60%. Atypical septal motion consistent with prior cardiac surgery. Dilated right ventricle with moderate RV hypokinesis. A device lead was visualized in the right atrium and right ventricle. Moderately dilated right atrium. Mild tricuspid regurgitation. Moderate pulmonary hypertension. Estimated RVSP = 53 mmHg. Cardiology consult: examined this patient and my medical decision-making was reviewed with the Resident Physician. I agree with the documented findings, disposition and treatment plan as described except to the extent set forth below. Consulted for preoperative assessment. ECG reviewed: sinus rhythm, no significant changes. TTE reviewed: normal LV systolic function (LVEF 55-60%), dilated RV with moderate RV hypokinesis with moderate pulmonary hypertension, RV dilation and pulmonary hypertension were also noted on his prior TTE in 2011. Right heart abnormalities are likely from a combination of COPD and diastolic CHF. He denies any current chest pain or dyspnea. I recommend that he proceeds with his planned orthopedic surgery without any further testing from a cardiology standpoint. He reports that he follows with cardiology at the [facility]. He should follow-up with his regular ear machine operator after discharge. We will sign-off. Please call with questions. Paolo Hathaway MD, [facility] Anesthesia Exam Last Vital Signs Temp 98.1 F 06/19/17 19:41 Pulse 70 06/19/17 19:41 Resp 14 06/19/17 19:41 BP 136/67 06/19/17 19:41 Pulse Ox 95 06/19/17 20:43 Weight: 86 kg NPO (# of Hours): > 8 hrs - HEENT Pupil (Motor): Pupils equal, EOMI Mallampati: II Teeth: Edentulous Oral Opening: Greater than 3 - ELECTROTYPE SERVICER LOC: Oriented - Cardiac Rhythm: Regular - Pulmonary Breath Sounds: bilateral Clear Respiratory Effort: Symmetrical Anesthesia Assess/Plan ASA Score: 4 Modified Bakari Scale for Level of Consciousness: Cooperative, oriented, and tranquil Anesthetic Plan: MAC Monitoring Plan: Standard Monitors Recovery Plan: PACU
[2017-06-20] MEDS ORDERED: *HR* FentaNYL (PF) 100 MCG/2 ML VIAL ONE (00:41)
[2017-06-20] MEDS ORDERED: *HR* Propofol 200 MG/20 ML VIAL IVP ONE (00:41)
[2017-06-20] MEDS ORDERED: *HR* Midazolam HCl 2 MG/2 ML VIAL ONE (00:41)
[2017-06-20] MEDS ORDERED: Ketamine *HR* 500 MG/10 ML MDV ONE (00:46)
--- NOTE | 2017-06-20 01:16 | Operative Note ---
Date of procedure: 06/20/17 Pre-op diagnosis: Left total hip arthroplasty dislocation Post-op diagnosis: same Procedure: Left hip closed reduction of total hip arthroplasty implants Anesthesia: MAC Surgeon: Rodríguez Raphael Estimated blood loss (cc): 0 Specimen: 0 Condition: stable Disposition: PACU Procedure in Detail: Indications: Patient 72-year-old gentleman who is recently status post a left hip revision for instability. The patient rolled on his bed last night and redislocated his left total hip arthroplasty. Patient was not wearing his abduction brace. Procedure: The patient was brought to the operating room and kept on the hospital bed. A sign in was performed. The patient underwent monitored anesthesia care. A timeout was performed. The fluoroscopy unit was brought in and make sure we did not visualize the hip. Axial traction was applied and the patient's station was deepened as he was resisting. Once relaxed, using commissure axial traction with hip flexion the hip reduced back in place with an audible clunk. This was verified under fluoroscopy with good AP and frog lateral view of the left hip. The patient was then placed into a hip abduction brace. He was awakened and taken to recovery in stable condition.
--- NOTE | 2017-06-20 01:54 | Anesthesia Evaluation Post Op ---
Date of Encounter: 06/20/17 Time of Encounter: 01:54 - Vital Signs Vital Signs: Last Vital Signs Temp 99.4 F 06/20/17 01:34 Pulse 68 06/20/17 01:34 Resp 18 06/20/17 01:34 BP 131/60 06/20/17 01:34 Pulse Ox 93 06/20/17 01:34 - Lungs Lungs: Clear Ascult./Percussion - Airway Airway: Non-obstructed - Cardiovascular Regular Rate - Mental Status Mental Status: Alert & Oriented, Answers Appropriately - Pain Pain Scale: 2 - Nausea Vomiting Nausea Vomiting: Not Present - Hydration Hydration: NPO - Discharge PostOp Status: Transfer Patient to floor
[2017-06-20] MEDS ORDERED: Naloxone 0.4 MG/ML INJ IVP PRN (02:13)
[2017-06-20] MEDS ORDERED: Acetaminophen 325 MG TABLET PO PRN (02:13)
[2017-06-20] MEDS ORDERED: D5% in Water 1,000 ML IVC PRN (02:13)
[2017-06-20] MEDS ORDERED: *HR* Dextrose 50 % in Water (Syg) 50 ML SYRINGE IVP PRN (02:13)
[2017-06-20] MEDS ORDERED: Ipratropium/Albuterol Neb 3 ML IH PRN ×2 (02:13)
[2017-06-20] MEDS ORDERED: Sennosides/Docusate Sodium TABLET PO PRN (02:13)
[2017-06-20] MEDS ORDERED: traZODone 50 MG TABLET PO PRN (02:13)
[2017-06-20] MEDS ORDERED: Dextrose Gel 15 GM PO PRN ×2 (02:13)
[2017-06-20] MEDS: *HR* OxyCODONE Immed Rel 5 MG TABLET PO PRN ×3 (03:14→21:11)
[2017-06-20] MEDS ORDERED: Aspirin 81 MG TAB.CHEW PO SCH (09:00)
--- NOTE | 2017-06-20 10:10 | Orthopedics Progress Note ---
Date of Encounter: 06/20/17 Time of Encounter: 10:08 - Assessment and Plan (1) Dislocation of internal left hip prosthesis, initial encounter Current Visit: No Status: Acute Continue hip brace Ok to d/c when bed available at [facility] Follow up with Dr Cannon thursday Subjective Interval history: Doing ok s/p L hip closed reduction. Pain controlled but with some nausea. In hip brace currently. Objective Vital signs: Vital Signs Temp Pulse Resp BP Pulse Ox 06/20/17 07:15 98.4 F 76 16 134/57 94 06/20/17 05:08 78 18 137/57 95 06/20/17 04:10 97.9 F 76 18 154/76 92 06/20/17 03:08 99.7 F H 72 18 138/69 93 06/20/17 02:30 100.0 F H 71 18 131/70 93 06/20/17 02:00 100.7 F H 69 18 126/54 93 06/20/17 01:34 99.4 F 68 18 131/60 93 06/20/17 01:24 68 18 133/60 95 06/20/17 01:14 98.8 F 70 16 121/62 96 06/19/17 20:43 95 06/19/17 19:41 98.1 F 70 14 136/67 96 06/19/17 18:39 98.1 F 69 17 139/71 95 06/19/17 15:48 98.3 F 69 16 129/71 94 06/19/17 15:33 97.9 F 67 16 115/61 94 06/19/17 14:50 98.0 F 74 16 116/65 94 06/19/17 14:24 93 06/19/17 12:17 98.6 F 63 15 113/61 94 06/19/17 12:02 98.5 F 66 15 116/64 93 Intake and Output 06/19/17 06/20/17 06/20/17 23:59 07:59 15:59 Intake Total 300 / 300 Output Total 950 / 950 400 / 400 Balance -650 / -650 -400 / -400 Intake: Blood Product 300 / 300 Plasma Unit [id number] 300 / 300 Output: Urine 0 / 0 Estimated Blood Loss 0 / 0 Catheter 950 / 950 400 / 400 Other: Weight 90.7 kg Blood Glucose* 114 98 Patient Weight 06/20/17 23:59 Weight 90.[address] DNVI +s/s/t/sp/dp - Labs CBC & BMP: 06/19/17 03:05 06/19/17 03:05 Labs: Abnormal lab results RBC 2.87 M/mcL (4.19-5.50) L 06/19/17 03:05 Hgb 8.7 g/dL (12.9-16.9) L 06/19/17 03:05 Hct 26.9 % (37.5-50.1) L 06/19/17 03:05 RDW 18.0 % (11.5-14.5) H 06/19/17 03:05 ESR 38 mm/hr (0-10) H 06/19/17 03:05 PT 17.6 Seconds (9.4-12.1) H 06/19/17 18:43 APTT 37.2 Seconds (26.0-36.0) H 06/18/17 21:40 Sodium 134 mEq/L (136-145) L 06/19/17 03:05 POC Glucose 98 (58-89) H 06/20/17 05:43 Calculated Osmolality 279 (280-300) L 06/19/17 03:05 C-Reactive Protein 175 mg/L (Less than 5) H 06/19/17 03:05 Urine Clarity Cloudy (Clear) A 06/18/17 21:44 - VTE Documentation of Mechanical Device: Intermittent pneumatic compression device Consult Discharge Plan - Plan [facility]errals: [facility] [Primary Care Provider] -
[2017-06-20] MEDS: Pregabalin 75 MG CAPSULE PO SCH ×3 (11:34→21:11)
[2017-06-20] MEDS: Aspirin 81 MG TAB.CHEW PO SCH (11:34)
[2017-06-20] MEDS: Metoprolol XL (24 HR) Succ 25 MG TAB.ER.24H PO SCH (11:34)
[2017-06-20] MEDS: DAPTOmycin 350 MG in 0.9 % Sodium Chloride 100 ML IVPB SCH (13:17)
[2017-06-20] MEDS ORDERED: Furosemide 40 MG TABLET PO PRN (14:19)
[2017-06-20] MEDS ORDERED: Furosemide 40 MG/4 ML VIAL IVP ONE (14:20)
[2017-06-20] MEDS ORDERED: Ondansetron 4 MG/2 ML VIAL IVP PRN (14:21)
--- NOTE | 2017-06-20 15:43 | Internal Med Progress Note ---
Date of Encounter: 06/20/17 Time of Encounter: 14:00 - Assessment and plan (1) Dislocation of internal left hip prosthesis, subsequent encounter Current Visit: Yes Status: Acute Assessment and plan: s/p closed reduction of left total hip arhtroplasty implants on 06/19/17 ortho recommend to continue hip brace Reviewed EKG and 2 D Echo Cont IV and PO analgesics PRN (2) Status post revision of total hip Current Visit: Yes Status: Acute Assessment and plan: had 2 surgeries in 2 weeks -- which put him on high risk for infections and post op complications will cont monitoring closely (3) Infected prosthesis of left hip Current Visit: Yes Status: Acute Assessment and plan: Concerned for possible prosthesis infection 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 Will send for wond cx Blood cx were drawn ESR and CRP are significantly elevated at 38 and 175 respectively Cont broad spec abx Daptomycin 4mg/kg/24hr Consulted ID - waiting for their eval Qualifiers: Qualified Code(s): T84.52XA - Infection and inflammatory reaction due to internal left hip prosthesis, initial encounter (4) Hx of CABG Current Visit: No Status: Chronic Assessment and plan: stable resumed all home meds (5) COPD (chronic obstructive pulmonary disease) Current Visit: No Status: Chronic Assessment and plan: stable not in exacerbation resumed home regimen Qualifiers: COPD type: chronic bronchitis Chronic bronchitis type: simple Qualified Code(s): J41.0 - Simple chronic bronchitis (6) Atrial fibrillation Current Visit: No Status: Chronic Assessment and plan: rate controlled with Metoprolol resumed coumadin Qualifiers: Atrial fibrillation type: paroxysmal Qualified Code(s): I48.0 - Paroxysmal atrial fibrillation (7) Diabetes Current Visit: No Status: Chronic Assessment and plan: on ISS Qualifiers: Diabetes mellitus type: type 2 Diabetes mellitus complication status: without complication Diabetes mellitus half-way insulin use: unspecified half-way insulin use status Qualified Code(s): E11.9 - Type 2 diabetes mellitus without complications (8) Diastolic CHF, chronic Current Visit: Yes Status: Chronic Assessment and plan: not in exacerbation resumed lasix.. gave 1 dose IV Lasix, since he received lot of fluids y/d reviewed 2 D Echo showed LVEF 55-60%, dilated RV with moderate RV hypokinesis with pulm HTN. resumed other home meds (9) Hypertension Current Visit: Yes Status: Acute Assessment and plan: stable with current medication Qualifiers: Hypertension type: essential hypertension Qualified Code(s): I10 - Essential (primary) hypertension (10) DVT prophylaxis Current Visit: No Status: Acute Assessment and plan: on coumadin - Subjective Interval history: Mr. Huddleston is a 72 year old male with history of diabetes, hypertension, CAD S/P CABG, A. 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 Apparently he did have severe pain last night, for which he came to ER and had CT of Hip done which showed Left total hip arthroplasty dislocation with prosthetic head posteriorly and superiorly. Now he is alert, awake and O x3, pain 6/10, but tolerable with pain medication. denied any CP. No events over night. He did have closed reduction of total hip arhtroplasty implants y/d - Constitutional Vitals: Temp Pulse Resp BP Pulse Ox 98.9 F 75 16 118/55 92 06/20/17 11:55 06/20/17 11:55 06/20/17 11:55 06/20/17 11:55 06/20/17 11:55 General appearance: Present: A&O X 3, no acute distress, answers questions appropriately - Head Head exam: Present: atraumatic, normal inspection - Respiratory Respiratory exam: Present: decreased breath sounds, rales, wheezes. Absent: respiratory distress, rhonchi - Cardiovascular Cardiovascular exam: Present: RRR, +S1, +S2. Absent: systolic murmur - GI/Abdominal GI/Abdominal exam: Present: normal bowel sounds, soft. Absent: rebound, rigid, tenderness - Extremities Exam Extremities exam: Present: pedal edema, tenderness (Left hip area). Absent: calf tenderness Additional comments: sero sanguineous discharge noticed from distal part of incision. moderate swelling and tenderness noticed over Left hip area. - Back Exam Back exam: Absent: CVA tenderness (L), CVA tenderness (R) - Neurological Exam Neurological exam: Present: alert, oriented X3 - Psychiatric Psychiatric exam: Present: normal affect, normal mood Internal Medicine: Result - Labs CBC & Chem 7: 06/19/17 03:05 06/19/17 03:05 - ABG Interpretation ABG results: PT/INR, D-dimer PT 17.6 Seconds (9.4-12.1) H 06/19/17 18:43 - Impressions Impressions Fluoroscopy 06/20/17 00:40 IMPRESSION: Intraprocedural fluoroscopic spot images as above. See separate procedure report for more information. D/ / Maria Luisa Lewis MD / Maria Luisa Lewis MD Interpreting Provider: Maria Luisa Lewis MD - VTE Documentation of Mechanical Device: Intermittent pneumatic compression device Consult Discharge Plan - Plan [facility]errals: [facility] [Primary Care Provider] -
[2017-06-20] MEDS ORDERED: *HR* Warfarin 2 MG TABLET PO ONE (18:00)
[2017-06-20] MEDS ORDERED: Warfarin perPT PO PRN (18:00)
[2017-06-20] MEDS: *HR* Warfarin 2 MG TABLET PO SCH (18:44)
[2017-06-20] MEDS: Latanoprost 2.5 ML BOTTLE BOTH EYES SCH (21:12)
[2017-06-21] MEDS: Pregabalin 75 MG CAPSULE PO SCH ×3 (07:34→20:26)
[2017-06-21] MEDS: amLODIPine 5 MG TABLET PO SCH (07:34)
[2017-06-21] MEDS: Metoprolol XL (24 HR) Succ 25 MG TAB.ER.24H PO SCH (07:34)
[2017-06-21] MEDS: Aspirin 81 MG TAB.CHEW PO SCH (07:34)
[2017-06-21] MEDS: Cholecalciferol (D-3) 1,000 UNIT TABLET PO SCH (07:34)
[2017-06-21] MEDS: *HR* OxyCODONE Immed Rel 5 MG TABLET PO PRN (07:35)
[2017-06-21] MEDS: Insulin LISPRO 300 UNITS/3 ML VIAL SQ SCH ×4 (07:47→20:24)
[2017-06-21] MEDS: DAPTOmycin 350 MG in 0.9 % Sodium Chloride 100 ML IVPB SCH (12:50)
[2017-06-21 13:50] LABS: Basophils % 0.4 %; Eosinophils % 0.8 %; Hematocrit 28.8 % (37.5-50.1); Hemoglobin 9.3 g/dL (12.9-16.9); Immature Granulocytes % 0.6 % (0-4); Lymphocytes # 0.5 K/mcL (0.6-4.6); Lymphocytes % 9.8 %; Mean Corpuscular HGB Conc 32.3 g/dL (31.6-35.5); Mean Corpuscular Hemoglobin 30.9 pg (28.0-33.3); Mean Corpuscular Volume 95.7 fL (83.0-100.0); Mean Platelet Volume 10.2 fL (9.4-12.4); Monocytes # 0.6 K/mcL (0.0-1.3); Monocytes % 12.5 %; Neutrophils # 3.9 K/mcL (1.6-8.9); Platelet Count 228 K/mcL (140-400); Red Blood Count 3.01 M/mcL (4.19-5.50); Red Cell Distribution Width 17.2 % (11.5-14.5); Segmented Neutrophils % 75.9 %
[2017-06-21 13:55] LABS: INR 1.8; Prothrombin Time 19.1 Seconds (9.4-12.1)
[2017-06-21 14:02] LABS: BUN/Creatinine Ratio 17 (6-26); Blood Urea Nitrogen 16 mg/dL (8-26); Calcium 8.6 mg/dL (8.6-10.8); Carbon Dioxide 25 mEq/L (19-29); Chloride 102 mEq/L (98-109); Glucose 221 mg/dL (70-99); Magnesium 1.8 mg/dL (1.6-2.6); Osmolality,Calculated 292 (280-300); Potassium 3.7 mEq/L (3.5-4.5); Sodium 137 mEq/L (136-145); eGFR For African Americans > 60 (> 60); eGFR For Non-African Americans > 60 (> 60)
--- NOTE | 2017-06-21 15:07 | Internal Med Progress Note ---
Date of Encounter: 06/21/17 Time of Encounter: 15:07 - Assessment and plan (1) Dislocation of internal left hip prosthesis, subsequent encounter Current Visit: Yes Status: Acute Assessment and plan: s/p closed reduction of left total hip arhtroplasty implants on 06/19/17 ortho recommend to continue hip brace Reviewed EKG and 2 D Echo Cont IV and PO analgesics PRN (2) Status post revision of total hip Current Visit: Yes Status: Acute Assessment and plan: had 2 surgeries in 2 weeks -- which put him on high risk for infections and post op complications will cont monitoring closely (3) Infected prosthesis of left hip Current Visit: Yes Status: Acute Assessment and plan: Concerned for possible prosthesis infection 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 Waiting wond cx Blood cx - no growth so far ESR and CRP are significantly elevated at 38 and 175 respectively Cont broad spec abx Daptomycin 4mg/kg/24hr Consulted ID - waiting on their eval Qualifiers: Qualified Code(s): T84.52XA - Infection and inflammatory reaction due to internal left hip prosthesis, initial encounter (4) Hx of CABG Current Visit: No Status: Chronic Assessment and plan: stable resumed all home meds (5) COPD (chronic obstructive pulmonary disease) Current Visit: No Status: Chronic Assessment and plan: stable not in exacerbation resumed home regimen Qualifiers: COPD type: chronic bronchitis Chronic bronchitis type: simple Qualified Code(s): J41.0 - Simple chronic bronchitis (6) Atrial fibrillation Current Visit: No Status: Chronic Assessment and plan: rate controlled with Metoprolol resumed coumadin Qualifiers: Atrial fibrillation type: paroxysmal Qualified Code(s): I48.0 - Paroxysmal atrial fibrillation (7) Diabetes Current Visit: No Status: Chronic Assessment and plan: on ISS Qualifiers: Diabetes mellitus type: type 2 Diabetes mellitus complication status: without complication 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 cont other home meds (9) Hypertension Current Visit: Yes Status: Acute Assessment and plan: stable with current medication Qualifiers: Hypertension type: essential hypertension Qualified Code(s): I10 - Essential (primary) hypertension (10) DVT prophylaxis Current Visit: No Status: Acute Assessment and plan: on coumadin - Subjective Interval history: Mr. Huddleston is a 72 year old male with history of diabetes, hypertension, CAD S/P CABG, A. 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 Apparently he did have severe pain last night, for which he came to ER and had CT of Hip done which showed Left total hip arthroplasty dislocation with prosthetic head posteriorly and superiorly. Now he is alert, awake and O x3, pain 5/10, but tolerable with pain medication. He did have closed reduction of total hip arhtroplasty implants on 06/18/17. He denied any CP / SOB. No fever / chills. No events over night. - Constitutional Vitals: Temp Pulse Resp BP Pulse Ox 98.7 F 68 16 124/73 96 06/21/17 09:51 06/21/17 09:51 06/21/17 09:51 06/21/17 09:51 06/21/17 09:51 General appearance: Present: A&O X 3, no acute distress, answers questions appropriately - Head Head exam: Present: atraumatic, normal inspection - Neck Neck exam general surgery: Present: supple - Respiratory Respiratory exam: Present: decreased breath sounds. Absent: respiratory distress, rhonchi, tachypnea - Cardiovascular Cardiovascular exam: Present: RRR, +S1, +S2. Absent: systolic murmur - GI/Abdominal GI/Abdominal exam: Present: normal bowel sounds, soft. Absent: distended, rebound, rigid, tenderness - Extremities Exam Extremities exam: Present: pedal edema, tenderness (Left hip). Absent: calf tenderness Additional comments: sero sanguineous discharge noticed from distal part of incision. moderate swelling and tenderness noticed over Left hip area. - Back Exam Back exam: Absent: CVA tenderness (L), CVA tenderness (R) - Neurological Exam Neurological exam: Present: alert, oriented X3 - Psychiatric Psychiatric exam: Present: normal affect, normal mood Internal Medicine: Result - Labs CBC & Chem 7: 06/21/17 13:35 06/21/17 13:35 Labs: Short CBC 06/21/17 Range/Units 13:35 WBC 5.1 (4.3-11.1) K/mcL Hgb 9.3 L (12.9-16.9) g/dL Hct 28.8 L (37.5-50.1) % Plt Count 228 (140-400) K/mcL Neutrophils # 3.9 (1.6-8.9) K/mcL BMP 06/21/17 13:35 Sodium 137 Potassium 3.7 Chloride 102 Carbon Dioxide 25 BUN 16 Creatinine 0.93 Glucose 221 H Calcium 8.6 - ABG Interpretation ABG results: PT/INR, D-dimer PT 19.1 Seconds (9.4-12.1) H 06/21/17 13:35 - VTE Documentation of Mechanical Device: Intermittent pneumatic compression device Consult Discharge Plan - Plan [facility]errals: [facility] [Primary Care Provider] -
[2017-06-21] MEDS: *HR* Warfarin 2 MG TABLET PO SCH (17:12)
[2017-06-21] MEDS: Latanoprost 2.5 ML BOTTLE BOTH EYES SCH (20:26)
[2017-06-22] MEDS: *HR* OxyCODONE Immed Rel 5 MG TABLET PO PRN ×2 (00:56→06:35)
[2017-06-22] MEDS: Lactulose Oral Soln 20 GM/30 ML UDC PO SCH ×2 (01:01→09:57)
--- NOTE | 2017-06-22 06:37 | Orthopedics Progress Note ---
Date of Encounter: 06/22/17 Time of Encounter: 06:35 Subjective Interval history: Patient seen this morning, well known to me. Patient was last seen last . Had drainage from his wound with some erythema. Patient had no complaints of instability, is ambulating well without a brace. Patient was placed on IV antibiotics at that time. Patient had an episode overnight night was admitted to the hospital with a dislocation of his left total hip replacement. Patient underwent a closed reduction by Dr. Raphael, Thursday morning. Examination of the left hip today reveals improvement in the erythema from his last evaluation by me on . Patient with no express drainage. Proximal portion of the incision anahi are not doing much some superficial skin erosion. Patient presently in an abduction hip brace, we will continue with IV antibiotics, obtain x-rays before discharge. Patient has implants that need to be retained due to the significant damage to his femur will be caused if they have tried to be removed. This is a fully coated femoral stem placed 18 years ago. Patient also has a long femoral plate which would also be very damaging if it had to be removed. Patient will follow-up in the office 2 days after discharge. Objective Vital signs: Vital Signs Temp Pulse Resp BP Pulse Ox 06/22/17 03:58 98.4 F 63 18 133/83 97 06/21/17 23:24 98.2 F 65 18 137/80 98 06/21/17 20:17 98.5 F 64 21 141/81 98 06/21/17 16:32 98.4 F 64 16 142/67 97 06/21/17 09:51 98.7 F 68 16 124/73 96 06/21/17 06:47 98.4 F 78 16 129/76 95 Intake and Output 06/21/17 06/21/17 06/22/17 15:59 23:59 07:59 Intake Total 750 / 750 200 / 200 Output Total 250 / 250 125 / 125 400 / 400 Balance 500 / 500 75 / 75 -400 / -400 Intake: Oral 750 / 750 200 / 200 Output: Urine 250 / 250 125 / 125 400 / 400 Other: Meal Lunch Dinner Percent of Meal Consumed 60% 75% Weight 91.1 kg Blood Glucose* 183 157 Patient Weight 06/22/17 23:59 Weight 91.1 kg - Labs CBC & BMP: 06/21/17 13:35 06/21/17 13:35 Labs: Abnormal lab results RBC 3.01 M/mcL (4.19-5.50) L 06/21/17 13:35 Hgb 9.3 g/dL (12.9-16.9) L 06/21/17 13:35 Hct 28.8 % (37.5-50.1) L 06/21/17 13:35 RDW 17.2 % (11.5-14.5) H 06/21/17 13:35 Lymphocytes # 0.5 K/mcL (0.6-4.6) L 06/21/17 13:35 ESR 38 mm/hr (0-10) H 06/19/17 03:05 PT 19.1 Seconds (9.4-12.1) H 06/21/17 13:35 APTT 37.2 Seconds (26.0-36.0) H 06/18/17 21:40 Glucose 221 mg/dL (70-99) H 06/21/17 13:35 POC Glucose 157 (58-89) H 06/21/17 20:12 C-Reactive Protein 175 mg/L (Less than 5) H 06/19/17 03:05 Urine Clarity Cloudy (Clear) A 06/18/17 21:44 - VTE Documentation of Mechanical Device: Intermittent pneumatic compression device Consult Discharge Plan - Plan [facility]errals: [facility] [Primary Care Provider] -
[2017-06-22] MEDS: Metoprolol XL (24 HR) Succ 25 MG TAB.ER.24H PO SCH (09:52)
[2017-06-22] MEDS: DAPTOmycin 350 MG in 0.9 % Sodium Chloride 100 ML IVPB SCH (09:56)
[2017-06-22] MEDS: Cholecalciferol (D-3) 1,000 UNIT TABLET PO SCH (09:57)
[2017-06-22] MEDS: Pregabalin 75 MG CAPSULE PO SCH (09:57)
[2017-06-22] MEDS: Aspirin 81 MG TAB.CHEW PO SCH (09:58)
[2017-06-22] MEDS: amLODIPine 5 MG TABLET PO SCH (09:58)
[2017-06-22] MEDS: Insulin LISPRO 300 UNITS/3 ML VIAL SQ SCH ×2 (10:09→12:20)
[2017-06-22 11:11] VITALS: BP 129/68
--- NOTE | 2017-06-22 11:58 | Infectious Disease Consult ---
Date of Encounter: 06/22/17 Time of Encounter: 11:56 Assessment and Plan (1) Superficial incisional surgical site infection Status: Acute Assessment and plan: Location: Left hip. Status post left hip hardware removal 06/01/17 and revision of femoral head length of total hip 06/04/17, both procedures by Dr. Cannon. Failed oral antibiotics outpatient. Intra-operative cultures from 06/01/17 and 06/04/17 were negative. The patient developed some superficial erythema and wound drainage after his second surgery despite oral antibiotic prophylaxis post-op. Clinically, the wound looks okay. He continues to have a moderate amount of bloody drainage, but no james pus or foul odor or erythema. The patient reports a marked decrease in his pain since admission. He has had no SIRS criteria to indicate systemic infection. Per ortho, the patient has a remote history of VRE in the past (2011), but nothing in our medical record. I had a long discussion with the patient and his about the need to be aggressive in treating this superficial infection to prevent infection of the hardware as he is high risk for another surgery since he has already had two surgeries in the past few weeks. We discussed the risks, benefits, and alternatives at length and they are agreeable to proceed with IV antibiotic therapy. I agree with IV antibiotics at this point, but the duration of treatment will be determined by the clinical course. Discontinue Daptomycin. Start Vancomycin IV. Pharmacy to dose. Goal trough ~15. Start Cefepime 2 grams IV Q12H. The patient does have an allergy to Rocephin listed, but the patient states he is not aware of being allergic to Rocephin and his only known allergy is to Bactrim. We will trial cefepime and monitor the patient closely. Duration of treatment depends on the clinical picture. Monitor renal function and for drug toxicity and dose-adjust antibiotics. Will need weekly CBC, BUN/Cr, ESR, CRP, and Vanc trough every Thursday for the duration of treatment. May need to switch out the patient's midline for PICC since he will go to ECF with Vanc, but will defer to the VAT for their recommendations on this. Will need weekly midline/PICC care per protocol. Follow up with ID in two weeks. Continue wound care and activity restrictions per the ortho team. Qualifiers: Encounter type: initial encounter Qualified Code(s): T81.4XXA - Infection following a procedure, initial encounter (2) Dislocation of internal left hip prosthesis, subsequent encounter Status: Acute Assessment and plan: Etiology unclear. Status post closed reduction per Dr. Cannon 06/20/17. (3) Anemia Status: Chronic Assessment and plan: Stable. Monitor closely as the patient is anticoagulated and continues to have bloody drainage from the surgical wound. Further workup and management per the primary team. Qualifiers: Anemia type: unspecified type Qualified Code(s): D64.9 - Anemia, unspecified (4) CHF (congestive heart failure) Status: Acute Qualifiers: Congestive heart failure type: combined Congestive heart failure chronicity : acute on chronic Qualified Code(s): I50.43 - Acute on chronic combined systolic (congestive) and diastolic (congestive) heart failure (5) Hypertension Status: Acute Qualifiers: Hypertension type: essential hypertension Qualified Code(s): I10 - Essential (primary) hypertension Infectious Disease HPI - Data of Consult Patient: new to practice Consult date: 06/22/17 Requesting Physician: Gabbi Casillas MD [facility] Provider[facility] - Consult Narrative Reason for consult: Left hip infection History of present illness: Mr. Huddleston is a 72 year old male with history of A. fib, CHF, COPD, CAD status post CABG, CVA, DVT, MA, remote history of THR in 1999 with ORIF of left femur 12 weeks later secondary to fracture, status post left hip hardware removal 06/01, and status post revision of femoral head length of the left total hip . The patient was admitted to the hospital 06/18/17 for left hip dislocation. We are consulted 06/22/17 for antibiotic recommendations for left hip infection. The patient is a 72 year old male with a past medical history as stated above. He had a left THR in 2000 followed by a left femur fracture a few months later requiring ORIF. He did well until about 6 months ago when he started having pain again. Bone scan showed concern for loosening of the hardware so he went to the OR 06/01/17 and had a left hip removal of hardware in which part of the femur plate was removed. Intra-operative cultures were negative at that time. Shortly after discharge, the patient fell sustaining a left hip dislocation requring a revision of the femoral head length of the left total hip on . Again, intra-op cultures were obtained and were negative. The patient had a small amount of drainage from the wound prior to discharge and was started on a 7 day course of PO doxycycline. He was seen by ortho 06/18/17 and was noted to have increased redness, drainage, and wound dehiscence and had a midline inserted with plans to start IV Zosyn and Zyvox (the patient has a remote history of VRE back in 2011 per ortho notes, but I can not find record of this in our documentation). Later that night, the patient began to experience severe left hip pain and was brought back to the ED. CT of the left hip showed dislocation and fat stranding deep to the anahi. The patient was afebrile and hemodynamically stable. Labs were normal. Blood cultures were obtained and the patient was started on empiric IV antibiotics. He was admitted for further evaluation and treatment. Since admission, the patient has been evaluated by orthopedics. He was taken to the OR 06/20/17 and had a closed reduction of the left hip dislocation. Labs have remained normal and the patient has been hemodynamically stable and afebrile. ESR on admission was 38 and is 83 today. The patient did have a mild post-procedure fever, but has been afebrile since then. The patient states he feels 100% better than when he came in. We've been asked to evaluate and make further recommendations. During my exam today, the patient's only complains is mild left hip pain with movement. He denies fevers, chills, or rigors. Denies headache or neck pain. Denies chest pain, shortness of breath, or cough. Denies nausea, vomiting, diarrhea, or constipation. Denies urinary complaints and states his appetite is getting back to normal. Denies pain in his back or other extremities. He does complain of chronic neuropathy pain to the bilateral feet. CC: Gabbi Casillas MD Past Med Surg Social Fam HX - Past Medical History Attestation: Yes The following information was validated with the patient. Source: patient, old records reviewed, nursing notes reviewed Medical history: atrial fibrillation, CHF, COPD, coronary artery disease, CVA, DVT, diabetes, GERD, hypertension, myocardial infarction, syncope Psychiatric history: anxiety, PTSD - Past Surgical History Surgical History: appendectomy, carotid endarterectomy, coronary bypass (CABG), hip replacement (Left total hip replacement 1999, left total hip hardware removal with arthrotomy 06/01/17, left hip revision femoral head length of total hip 06/04/17, closed reduction of left hip dislocation 06/20/17), LE stent(s), orthopedic, other (ORIF left femur 1999 (12 weeks after THR)), vascular surgery , pacemaker - Social History Smoking Status: Former smoker Smokeless Tobacco Status: No Alcohol use: none Drug use: none Occupational status: retired Current living situation: Home, With Family Activity Level: Independent ambulation Recent Out of Country Travel Within the Last 8 Weeks: No Exposure or Possible Exposure to Illness During Travel: No - Family History Father Living Status: Cause of : lupus Hx Family Cancer: Yes Infectious Disease-CN:Meds GlipiZIDE [Glucotrol] 7.5 mg PO BID 04/13/15 [History] Atorvastatin [Lipitor] 10 mg PO HS 10/16/15 [History] Albuterol Sulfate [Albuterol Inhaler] 2 puff IH QID PRN 06/01/17 [History] Cholecalciferol (Vitamin D3) [Vitamin D3] 2,000 unit PO DAILY 06/01/17 [History] Metoprolol Succinate 25 mg PO DAILY 06/01/17 [History] Sertraline [Zoloft] 100 mg PO QPM 06/01/17 [History] Warfarin [Coumadin] 2 mg PO TH 06/01/17 [History] Warfarin [Coumadin] 4 mg PO SUMOTUWEFRSA 06/01/17 [History] amLODIPine [Norvasc] 5 mg PO DAILY 06/01/17 [History] Magnesium Hydroxide [Milk of Magnesia] 2,400 mg PO HS PRN 06/03/17 [History] Polyethylene Glycol 3350 [MiraLAX] 17 gm PO BID PRN 06/03/17 [History] Tiotropium [Spiriva] 18 mcg IH 0700 06/03/17 [History] Travoprost [Travatan Z] 1 drop BOTH EYES HS 06/03/17 [History] traZODone [TraZODone] 50 mg PO HS PRN 06/03/17 [History] Ipratropium/Albuterol Neb [Duoneb] 3 ml IH QID PRN #1 06/06/17 [Rx] Clopidogrel [Plavix] 75 mg PO DAILY 06/19/17 [History] Ferrous Sulfate [Iron] 325 mg PO BID 06/19/17 [History] Furosemide [Lasix] 40 mg PO DAILY PRN 06/19/17 [History] Levothyroxine [Synthroid] 50 mcg PO 0630 06/19/17 [History] MOM Conc [MILK OF MAGNJACKIE conc] 30 ml PO HS PRN 06/19/17 [History] OxyCODONE Immed Rel [Roxicodone 5 MG] 5 mg PO Q4H PRN 06/19/17 [History] Pregabalin [Lyrica] 150 mg PO TID 06/19/17 [History] Sennosides/Docusate Sodium [Senna-Docusate Sodium Tablet] 2 tab PO BID PRN 06/19 [History] 3 Allergy/AdvReac Type Severity Reaction Status Date / Time azithromycin Allergy See Verified 06/19/17 09:01 Comments ceftriaxone Allergy See Verified 06/19/17 09:01 Comments morphine Allergy See Verified 06/19/17 09:01 Comments sulfamethoxazole AdvReac See Verified 06/19/17 09:01 [From Bactrim] Comments trimethoprim [From Bactrim] AdvReac See Verified 06/19/17 09:01 Comments All systems: reviewed and no additional remarkable complaints except as stated Exam - Constitutional Vitals: Temp Pulse Resp BP Pulse Ox 97.8 F 60 18 129/68 93 06/22/17 11:09 06/22/17 11:09 06/22/17 11:09 06/22/17 11:09 06/22/17 11:09 General appearance: cooperative, no acute distress, obese - Head Head exam: Present: atraumatic, normal inspection, normocephalic - Eye Eye exam: Present: EOMI, normal appearance, PERRL Pupils: Present: normal accommodation - ENT ENT exam: Present: mucous membranes moist - Neck Neck exam: Present: normal inspection - Respiratory Respiratory exam: Present: CTAB. Absent: rales, respiratory distress, rhonchi, wheezes - Cardiovascular Cardiovascular exam: Present: irregular rhythm. Absent: tachycardia - GI/Abdominal GI/Abdominal exam: Present: normal bowel sounds, soft. Absent: distended, tenderness - Extremities Exam Extremities exam: Present: pedal edema (Trace RLE, 1+ LLE), tenderness (left hip incision). Absent: joint swelling Additional comments: Left hip incision with anahi intact. Moderate amount of serosanguinous drainage noted on the dressing. ROM not assessed due to pain. No erythema, warmth, or marked tenderness noted. No purulent drainage noted. - Neurological Exam Neurological exam: Present: alert, oriented X3, no focal deficits - Psychiatric Psychiatric exam: Present: normal affect, normal mood - Skin Skin exam: Present: dry, intact, normal color, warm Infectious Disease CN: Results - Labs CBC & Chem 7: 06/21/17 13:35 06/21/17 13:35 Cultures: Cultures 06/18/17 22:00 Blood Culture - Preliminary Peripheral Venipuncture No growth. 06/18/17 21:40 Blood Culture - Preliminary Peripheral Venipuncture No growth. - VTE Documentation of Mechanical Device: Intermittent pneumatic compression device Consult Discharge Plan - Plan [facility]errals: [facility] [Primary Care Provider] -
[2017-06-22] MEDS ORDERED: Vancomycin 1,250 MG in D5% in Water 250 ML IVPB ONE (14:20)
--- NOTE | 2017-06-22 14:20 | Discharge Summary ---
Date of Encounter: 06/22/17 Time of Encounter: 14:14 - Discharge Diagnosis (1) Dislocation of internal left hip prosthesis, subsequent encounter Priority: Primary Status: Acute (2) Status post revision of total hip Priority: Primary Status: Acute (3) Infected prosthesis of left hip Priority: Primary Status: Acute Qualifiers: Qualified Code(s): T84.52XA - Infection and inflammatory reaction due to internal left hip prosthesis, initial encounter (4) Hx of CABG Priority: Secondary Status: Chronic (5) COPD (chronic obstructive pulmonary disease) Priority: Secondary Status: Chronic Qualifiers: COPD type: chronic bronchitis Chronic bronchitis type: simple Qualified Code(s): J41.0 - Simple chronic bronchitis (6) Atrial fibrillation Priority: Secondary Status: Chronic Qualifiers: Atrial fibrillation type: paroxysmal Qualified Code(s): I48.0 - Paroxysmal atrial fibrillation (7) Diabetes Priority: Secondary Status: Chronic Qualifiers: Diabetes mellitus type: type 2 Diabetes mellitus complication status: without complication Diabetes mellitus long goods drier insulin use: unspecified long goods drier insulin use status Qualified Code(s): E11.9 - Type 2 diabetes mellitus without complications (8) Diastolic CHF, chronic Priority: Secondary Status: Chronic (9) Hypertension Priority: Secondary Status: Acute Qualifiers: Hypertension type: essential hypertension Qualified Code(s): I10 - Essential (primary) hypertension (10) DVT prophylaxis Priority: Secondary Status: Acute - Discharge Medications Prescriptions: Cefepime HCl/Dextrose, Iso-Osm [Cefepime 2 gm Injection] 2 gm IV BID 21 Days froz.piggy OxyCODONE Immed Rel [Roxicodone 5 MG] 5 mg PO Q4H PRN #20 tablet PRN Reason: Pain Saccharomyces Boulardii [Florastor] 250 mg PO BID #60 capsule Vancomycin HCl in Dextrose 5 % [Vancomycin-D5w 1.25 Gram/250Ml] 1.25 gm IV DAILY 21 Days mls Home Medications: GlipiZIDE [Glucotrol] 7.5 mg PO BID 04/13/15 [History] Atorvastatin [Lipitor] 10 mg PO HS 10/16/15 [History] Albuterol Sulfate [Albuterol Inhaler] 2 puff IH QID PRN 06/01/17 [History] Cholecalciferol (Vitamin D3) [Vitamin D3] 2,000 unit PO DAILY 06/01/17 [History] Metoprolol Succinate 25 mg PO DAILY 06/01/17 [History] Sertraline [Zoloft] 100 mg PO QPM 06/01/17 [History] Warfarin [Coumadin] 2 mg PO TH 06/01/17 [History] Warfarin [Coumadin] 4 mg PO SUMOTUWEFRSA 06/01/17 [History] amLODIPine [Norvasc] 5 mg PO DAILY 06/01/17 [History] Magnesium Hydroxide [Milk of Magnesia] 2,400 mg PO HS PRN 06/03/17 [History] Polyethylene Glycol 3350 [MiraLAX] 17 gm PO BID PRN 06/03/17 [History] Tiotropium [Spiriva] 18 mcg IH 0700 06/03/17 [History] Travoprost [Travatan Z] 1 drop BOTH EYES HS 06/03/17 [History] traZODone [TraZODone] 50 mg PO HS PRN 06/03/17 [History] Ipratropium/Albuterol Neb [Duoneb] 3 ml IH QID PRN #1 06/06/17 [Rx] Clopidogrel [Plavix] 75 mg PO DAILY 06/19/17 [History] Ferrous Sulfate [Iron] 325 mg PO BID 06/19/17 [History] Furosemide [Lasix] 40 mg PO DAILY PRN 06/19/17 [History] Levothyroxine [Synthroid] 50 mcg PO 0630 06/19/17 [History] MOM Conc [MILK OF MAGNESIA conc] 30 ml PO HS PRN 06/19/17 [History] Pregabalin [Lyrica] 150 mg PO TID 06/19/17 [History] Sennosides/Docusate Sodium [Senna-Docusate Sodium Tablet] 2 tab PO BID PRN 06/19 [History] Cefepime HCl/Dextrose, Iso-Osm [Cefepime 2 gm Injection] 2 gm IV BID 21 Days froz.piggy 06/22/17 [Rx] OxyCODONE Immed Rel [Roxicodone 5 MG] 5 mg PO Q4H PRN #20 tablet 06/22/17 [Rx] Saccharomyces Boulardii [Florastor] 250 mg PO BID #60 capsule 06/22/17 [Rx] Vancomycin HCl in Dextrose 5 % [Vancomycin-D5w 1.25 Gram/250Ml] 1.25 gm IV DAILY 21 Days mls 06/22/17 [Rx] Allergies/Adverse Reactions: 3 Allergy/AdvReac Type Severity Reaction Status Date / Time azithromycin Allergy See Verified 06/19/17 09:01 Comments ceftriaxone Allergy See Verified 06/19/17 09:01 Comments morphine Allergy See Verified 06/19/17 09:01 Comments sulfamethoxazole AdvReac See Verified 06/19/17 09:01 [From Bactrim] Comments trimethoprim [From Bactrim] AdvReac See Verified 06/19/17 09:01 Comments Date of admission: 06/19/17 02:06 [facility] care physician: [facility] Consults: 06/19/17 11:30 Consult to Cardiology [CONS] Stat Comment: Consulting Provider: Cardiology [place] Reason for Consult: Pre op clearence Call Completed: Yes 06/22/17 08:13 Consult to Infectious Diseases [CONS] Routine Consulting Provider: Infectious Disease [place] Reason for Consult: Consult requested by hospitalist Time Notified: 08:13 Call Completed: Yes - Patient Status Disposition: Transfer SNF Condition: Good Overall status at discharge: patient is back to baseline - Discharge Instructions Follow Up With: [facility] [Primary Care Provider] - Laina Smith MD [Partnered Physician] - Andrea Cannon MD [Partnered Physician] - Additional Instructions: Need to see [place] Dr. Cannon in 2 days Need to f/u with ID Dr. Smith / Kayce Glover in 1 week Need to get CBC, ESR, CRP, Vanco trough levels and BMP Q weekly - f/u with ID for test results May need to change mid line to PICC line for now I wrote for 21 days abx..ID will decide further duration depending on how pt does clinically in coming days - Diet and Activity Activity: as per physical therapy, increase activity as tolerated Diet: low salt diet Hospital course: Mr. Huddleston is a 72 year old male with history of diabetes, hypertension, CAD S/P CABG, A. 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 Apparently he did have severe pain last night, for which he came to ER and had CT of Hip done which showed Left total hip arthroplasty dislocation with prosthetic head posteriorly and superiorly. Pt was admitted here for intractable Letf hip pain with prosthesis dislocation and possible superficial surgical site infection. He did have closed reduction of total hip arhtroplasty implants on 06/18/17. His ESR and CRP were elevated upon admission, however he remained afebrile and his WBC were WNL. Since ortho mentioned he had VRE inf int he past i started him on Daptomycin and consulted ID for further abx management. Pt was seen by ID today and recommend to change abx to Cefepime and Vancomycin and follow up with ID as an out pt. They will decide the duration of abx management depending on pt's clinical response. Also need to go for Weekly CBC, ESR, CRP, Vanco trough and BMP, Pharmacy to dose vancomycin further. ID will follow up on Vanco trough levels - Time Spent with Patient Total time spent providing and/or coordinating discharge services: Greater than 30 minutes (Spent 40 minutes on this pt's discharge summary due to complex medical problems) - Constitutional Vitals: Temp Pulse Resp BP Pulse Ox 97.8 F 60 18 129/68 97 06/22/17 11:09 06/22/17 11:09 06/22/17 11:09 06/22/17 11:09 06/22/17 12:27 General appearance: Present: A&O X 3, no acute distress, answers questions appropriately - Head Head exam: Present: atraumatic, normal inspection - Respiratory Respiratory exam: Present: decreased breath sounds. Absent: rales, respiratory distress, rhonchi, wheezes - Cardiovascular Cardiovascular exam: Present: RRR, +S1, +S2. Absent: systolic murmur, tachycardia - GI/Abdominal GI/Abdominal exam: Present: normal bowel sounds, soft. Absent: rebound, rigid, tenderness - Extremities Exam Extremities exam: Present: tenderness (mild tenderness at Left hip area. ). Absent: calf tenderness, pedal edema Additional comments: still has mild non purulent, sero sanguineous discharge noticed with out any bad odor. - Back Exam Back exam: Absent: CVA tenderness (L), CVA tenderness (R) - Neurological Exam Neurological exam: Present: alert, oriented X3 - Psychiatric Psychiatric exam: Present: normal affect, normal mood - VTE Documentation of Mechanical Device: Intermittent pneumatic compression device
--- NOTE | 2017-06-22 14:29 | Physician Discharge Referral ---
ExtendedCare Referral Info Transfer To: SNF Provider in Charge after Transfer: PCP Institutional Level of Care: Skilled - Diagnosis (1) Dislocation of internal left hip prosthesis, subsequent encounter Status: Acute (2) Status post revision of total hip Status: Acute (3) Infected prosthesis of left hip Status: Acute (4) Hx of CABG Status: Chronic (5) COPD (chronic obstructive pulmonary disease) Status: Chronic (6) Atrial fibrillation Status: Chronic (7) Diabetes Status: Chronic (8) Diastolic CHF, chronic Status: Chronic (9) Hypertension Status: Acute (10) DVT prophylaxis Status: Acute - Transfer Medications Prescriptions: Cefepime HCl/Dextrose, Iso-Osm [Cefepime 2 gm Injection] 2 gm IV BID 21 Days froz.piggy OxyCODONE Immed Rel [Roxicodone 5 MG] 5 mg PO Q4H PRN #20 tablet PRN Reason: Pain Saccharomyces Boulardii [Florastor] 250 mg PO BID #60 capsule Vancomycin HCl in Dextrose 5 % [Vancomycin-D5w 1.25 Gram/250Ml] 1.25 gm IV DAILY 21 Days mls Home Medications: GlipiZIDE [Glucotrol] 7.5 mg PO BID 04/13/15 [History] Atorvastatin [Lipitor] 10 mg PO HS 10/16/15 [History] Albuterol Sulfate [Albuterol Inhaler] 2 puff IH QID PRN 06/01/17 [History] Cholecalciferol (Vitamin D3) [Vitamin D3] 2,000 unit PO DAILY 06/01/17 [History] Metoprolol Succinate 25 mg PO DAILY 06/01/17 [History] Sertraline [Zoloft] 100 mg PO QPM 06/01/17 [History] Warfarin [Coumadin] 2 mg PO TH 06/01/17 [History] Warfarin [Coumadin] 4 mg PO SUMOTUWEFRSA 06/01/17 [History] amLODIPine [Norvasc] 5 mg PO DAILY 06/01/17 [History] Magnesium Hydroxide [Milk of Magnesia] 2,400 mg PO HS PRN 06/03/17 [History] Polyethylene Glycol 3350 [MiraLAX] 17 gm PO BID PRN 06/03/17 [History] Tiotropium [Spiriva] 18 mcg IH 0700 06/03/17 [History] Travoprost [Travatan Z] 1 drop BOTH EYES HS 06/03/17 [History] traZODone [TraZODone] 50 mg PO HS PRN 06/03/17 [History] Ipratropium/Albuterol Neb [Duoneb] 3 ml IH QID PRN #1 06/06/17 [Rx] Clopidogrel [Plavix] 75 mg PO DAILY 06/19/17 [History] Ferrous Sulfate [Iron] 325 mg PO BID 06/19/17 [History] Furosemide [Lasix] 40 mg PO DAILY PRN 06/19/17 [History] Levothyroxine [Synthroid] 50 mcg PO 0630 06/19/17 [History] MOM Conc [MILK OF MAGNESIA conc] 30 ml PO HS PRN 06/19/17 [History] Pregabalin [Lyrica] 150 mg PO TID 06/19/17 [History] Sennosides/Docusate Sodium [Senna-Docusate Sodium Tablet] 2 tab PO BID PRN 06/19 [History] Cefepime HCl/Dextrose, Iso-Osm [Cefepime 2 gm Injection] 2 gm IV BID 21 Days froz.piggy 06/22/17 [Rx] OxyCODONE Immed Rel [Roxicodone 5 MG] 5 mg PO Q4H PRN #20 tablet 06/22/17 [Rx] Saccharomyces Boulardii [Florastor] 250 mg PO BID #60 capsule 06/22/17 [Rx] Vancomycin HCl in Dextrose 5 % [Vancomycin-D5w 1.25 Gram/250Ml] 1.25 gm IV DAILY 21 Days mls 06/22/17 [Rx] Allergies/Adverse Reactions: 3 Allergy/AdvReac Type Severity Reaction Status Date / Time azithromycin Allergy See Verified 06/19/17 09:01 Comments ceftriaxone Allergy See Verified 06/19/17 09:01 Comments morphine Allergy See Verified 06/19/17 09:01 Comments sulfamethoxazole AdvReac See Verified 06/19/17 09:01 [From Bactrim] Comments trimethoprim [From Bactrim] AdvReac See Verified 06/19/17 09:01 Comments - Respiratory Orders Smoking Cessation: Smoking cessation has been advised. For more information, call the [place] Tobacco Quit Line at 1-832-TLOA-NOW. CERTIFICATION: I certify that the transfer of the above named patient to an Extended Care Facility is necessary for the continuing treatment of the diagnosis listed. The above information is true and accurate reflection of patient's current condition. Confidential - Redisclosure prohibited without a patient's written consent.
[2017-06-22] MEDS ORDERED: Vancomycin 1 EACH in D5% in Water 250 ML IVPB SCH (15:00)
[2017-06-22] MEDS ORDERED: Cefepime HCl 2,000 MG in D5% in Water (Mini-Bag+) 100 ML IVPB SCH (18:00)
== END 2017-06-22 17:21 | DRG 466 ==
LOC: EMEROO 21:30 → 3NENU 21:30 → SUATTDRO 06-19 02:06
PROVIDERS: ADMIT Internal Medicine; ATTEND Family Medicine

== ENCOUNTER 2017-06-24 12:44 | Inpatient (IN) ==
[2017-06-24] MEDS ORDERED: Ipratropium/Albuterol Neb 3 ML IH ONE (12:46)
[2017-06-24] MEDS ORDERED: methylPREDNISolone 125 MG/2 ML VIAL IVP ONE (12:46)
--- NOTE | 2017-06-24 12:51 | Emergency Department Note ---
Disposition Clinical Impression: Acute exacerbation of chronic obstructive airways disease CHF (congestive heart failure) Qualifiers: Congestive heart failure type: unspecified congestive heart failure type Congestive heart failure chronicity: acute on chronic Qualified Code(s): I50.9 - Heart failure, unspecified Septic joint Qualifiers: Septic arthritis location: hip Septic arthritis organism: due to unspecified organism Laterality: left Qualified Code(s): M00.9 - Pyogenic arthritis, unspecified Disposition: Admitted As Inpatient Condition: Serious [facility]: [facility]Primary Care Provider[facility] - Time of Disposition: 14:35 SOB HPI - General Chief Complaint: ED Shortness of Breath/Dyspnea Stated Complaint: CULLEN Time Seen by Provider: 06/24/17 12:46 Source: patient, EMS Mode of arrival: EMS Limitations: no limitations Nursing Notes Reviewed: Yes Vital Signs Reviewed: Yes - History of Present Illness 72-year-old who is status post hip replacement currently being treated for a postop infection who was found to have increasing shortness of breath cough. Pt Subjective Complaint: shortness of breath, cough Onset (ago): Just [employer] Context: recent illness (Up to) Severity: moderate Consistency/Duration: constant Improves with: nothing Worsens with: exertion Known history of: COPD Associated symptoms: Reports: cough, wheezing Treatment prior to arrival: oxygen, bronchodilator Cough present: Yes Cough Description: Involuntary Cough Frequency: Intermittent - Related Data Home Medications Medication Instructions Recorded Confirmed GlipiZIDE [Glucotrol] 7.5 mg PO BID 04/13/15 06/19/17 Atorvastatin [Lipitor] 10 mg PO HS 10/16/15 06/19/17 Albuterol Sulfate [Albuterol 2 puff IH QID PRN 06/01/17 06/19/17 Inhaler] Cholecalciferol (Vitamin D3) 2,000 unit PO DAILY 06/01/17 06/19/17 [Vitamin D3] Metoprolol Succinate 25 mg PO DAILY 06/01/17 06/19/17 Sertraline [Zoloft] 100 mg PO QPM 06/01/17 06/19/17 Warfarin [Coumadin] 2 mg PO TH 06/01/17 06/19/17 Warfarin [Coumadin] 4 mg PO SUMOTUWEFRSA 06/01/17 06/19/17 amLODIPine [Norvasc] 5 mg PO DAILY 06/01/17 06/19/17 Magnesium Hydroxide [Milk of 2,400 mg PO HS PRN 06/03/17 06/19/17 Magnesia] Polyethylene Glycol 3350 [MiraLAX] 17 gm PO BID PRN 06/03/17 06/19/17 Tiotropium [Spiriva] 18 mcg IH 0700 06/03/17 06/19/17 Travoprost [Travatan Z] 1 drop BOTH EYES HS 06/03/17 06/19/17 traZODone [TraZODone] 50 mg PO HS PRN 06/03/17 06/19/17 Clopidogrel [Plavix] 75 mg PO DAILY 06/19/17 06/19/17 Ferrous Sulfate [Iron] 325 mg PO BID 06/19/17 06/19/17 Furosemide [Lasix] 40 mg PO DAILY PRN 06/19/17 06/19/17 Levothyroxine [Synthroid] 50 mcg PO 0630 06/19/17 06/19/17 MOM Conc [MILK OF MAGNESIA conc] 30 ml PO HS PRN 06/19/17 06/19/17 Pregabalin [Lyrica] 150 mg PO TID 06/19/17 06/19/17 Sennosides/Docusate Sodium 2 tab PO BID PRN 06/19/17 06/19/17 [Senna-Docusate Sodium Tablet] Previous Rx's Medication Instructions Recorded Ipratropium/Albuterol Neb [Duoneb] 3 ml IH QID PRN #1 06/06/17 Cefepime HCl/Dextrose, Iso-Osm 2 gm IV BID 21 Days froz.piggy 06/22/17 [Cefepime 2 gm Injection] OxyCODONE Immed Rel [Roxicodone 5 5 mg PO Q4H PRN #20 tablet 06/22/17 MG] Saccharomyces Boulardii [Florastor] 250 mg PO BID #60 capsule 06/22/17 Vancomycin HCl in Dextrose 5 % 1.25 gm IV DAILY 21 Days mls 06/22/17 [Vancomycin-D5w 1.25 Gram/250Ml] Allergies Allergy/AdvReac Type Severity Reaction Status Date / Time azithromycin Allergy See Verified 06/19/17 09:01 Comments ceftriaxone Allergy See Verified 06/19/17 09:01 Comments morphine Allergy See Verified 06/19/17 09:01 Comments sulfamethoxazole AdvReac See Verified 06/19/17 09:01 [From Bactrim] Comments trimethoprim [From Bactrim] AdvReac See Verified 06/19/17 09:01 Comments Constitutional: Denies: fever, chills, weakness, weight change Eyes: Denies: eye pain, eye discharge, vision change ENT ED: Denies: ear pain, throat pain, dental pain, hearing loss, epistaxis, congestion, dysphagia Cardiovascular: Denies: chest pain, palpitations, dyspnea on exertion, edema, syncope Respiratory: Reports: cough, wheezes. Denies: dyspnea, hemoptysis, stridor Gastrointestinal: Denies: abdominal pain, nausea, vomiting, diarrhea, constipation, hematemesis, melena, hematochezia Genitourinary: Denies: urgency, dysuria, frequency, hematuria Musculoskeletal: Denies: back pain, neck pain, arthralgia, myalgia Integumentary: Denies: rash, abrasion, lesions Neurological: Denies: headache, weakness, numbness, paresthesias, confusion, abnormal gait, vertigo Psychiatric: Denies: anxiety, depression, suicidal thoughts, homicidal thoughts , auditory hallucinations, visual hallucinations Endocrine: Denies: fatigue Hematological/Lymphatic: Denies: easy bleeding, easy bruising Allergic/Immunologic: Denies: facial swelling, urticaria Past Medical History - Past Medical History Medical history: Reports: atrial fibrillation, CHF, COPD, coronary artery disease, CVA, DVT, diabetes, GERD, hypertension, myocardial infarction, syncope Surgical history: Reports: appendectomy, carotid endarterectomy, coronary bypass (CABG), hip replacement (Left total hip replacement 1999, left total hip hardware removal with arthrotomy 06/01/17, left hip revision femoral head length of total hip 06/04/17, closed reduction of left hip dislocation 06/20/17), LE stent(s), orthopedic, other (ORIF left femur 1999 (12 weeks after THR)), vascular surgery, pacemaker Psychiatric history: Reports: anxiety, PTSD - Social History Smoking Status: Former smoker Smokeless Tobacco Status: No Alcohol use: Reports: none Drug use: Reports: none Physical Exam - General Limitations: no limitations General appearance: alert, in no apparent distress - Head Head exam: atraumatic, normocephalic, normal inspection - Eye Eye exam: Present: normal appearance, PERRL, EOMI - ENT ENT exam: normal exam, normal oropharynx, mucous membranes moist - Neck Neck exam: Present: normal inspection, full ROM, trachea midline - Chest Chest inspection: Present: normal inspection, symmetric chest wall rise - Respiratory Respiratory exam: Present: wheezes, accessory muscle use, prolonged expiratory phase - Cardiovascular Cardiovascular exam: Present: regular rate, normal rhythm, normal heart sounds - Abdominal Exam Abdominal exam: Present: soft, Non-Tender. Absent: tenderness, distention, guarding, rebound, rigidity - Expanded Lower Extremity Exam Hip/Pelvis exam: Present: tenderness, erythema Neurovascular/Tendon exam: Absent: motor deficit, sensory deficit, tendon deficit Gait: not tested/not observed - Back Exam Back exam: Present: normal inspection, full ROM. Absent: tenderness - Neurological Exam Neurological exam: Present: alert, oriented X3 - Psychiatric Psychiatric exam: Present: normal affect, normal mood - Skin Skin exam: Present: warm, dry, intact, normal color Course - Reevaluation(s) Reevaluation #1: 72-year-old who came in with shortness of breath or tachycardic concern for sepsis. Patient does have a known left hip joint infection and is currently on Zosyn and vancomycin. Workup here included chest x-ray which showed some mild congestive changes. The lactate was normal. White count was normal. She received breathing treatment and a small fluid bolus with improvement in his symptoms blood pressure came up 116. Heart rate went from 128 down to 99. She will be admitted. Time: 14:32 - Consultations Consultation #1: Discussed with , admit. Time: 14:33 Vital Signs Temperature 98.1 F 06/24/17 12:46 Pulse Rate 128 06/24/17 12:46 Respiratory Rate 14 06/24/17 12:46 Blood Pressure 88/62 06/24/17 12:46 O2 Sat by Pulse Oximetry 96 06/24/17 12:46 Temperature 98.1 F 06/24/17 12:46 Pulse Rate 102 06/24/17 13:25 Respiratory Rate 10 06/24/17 13:25 Blood Pressure 116/74 06/24/17 13:25 O2 Sat by Pulse Oximetry 93 06/24/17 13:25 Oxygen Delivery Oxygen Delivery Nasal Cannula Shortness of Breath/Dyspnea - Lab Data Result diagrams: 06/24/17 13:27 10/25/17 13:27 Lab Results 06/24/17 06/24/17 06/24/17 Range/Units 13:27 13:27 13:27 WBC 8.6 D (4.3-11.1) K/mcL RBC 2.91 L (4.19-5.50) M/mcL Hgb 8.9 L (12.9-16.9) g/dL Hct 28.0 L (37.5-50.1) % MCV 96.2 (83.0-100.0) fL MCH 30.6 (28.0-33.3) pg MCHC 31.8 (31.6-35.5) g/dL RDW 17.4 H (11.5-14.5) % Plt Count 241 (140-400) K/mcL MPV 10.4 (9.4-12.4) fL Immature Gran % 1.2 (0-4) % Seg Neutrophils % 80.9 % Lymphocytes % 10.1 % Monocytes % 5.5 % Eosinophils % 2.0 % Basophils % 0.3 % Neutrophils # 7.0 (1.6-8.9) K/mcL Lymphocytes # 0.9 (0.6-4.6) K/mcL Monocytes # 0.5 (0.0-1.3) K/mcL Eosinophils # 0.2 (0.0-0.6) K/mcL Basophils # 0.0 (0.0-0.2) K/mcL Immature Plt Fraction 2.9 (1.1-6.1) % Sodium 136 (136-145) mEq/L Potassium 4.7 H D (3.5-4.5) mEq/L Chloride 106 (98-109) mEq/L Carbon Dioxide 23 (19-29) mEq/L BUN 22 (8-26) mg/dL Creatinine 1.45 H D (0.72-1.25) mg/dL Est GFR ( Amer) 58 L (> 60) Est GFR (Non-Af Amer) 48 L (> 60) BUN/Creatinine Ratio 15 (6-26) Glucose 164 H (70-99) mg/dL Calculated Osmolality 289 (280-300) Lactic Acid 1.6 (0.5-2.2) mmol/L Calcium 8.0 L (8.6-10.8) mg/dL Troponin I (0-0.03) ng/mL B-Natriuretic Peptide (0-100) pg/mL 06/24/17 06/24/17 Range/Units 13:27 13:27 WBC (4.3-11.1) K/mcL RBC (4.19-5.50) M/mcL Hgb (12.9-16.9) g/dL Hct (37.5-50.1) % MCV (83.0-100.0) fL MCH (28.0-33.3) pg MCHC (31.6-35.5) g/dL RDW (11.5-14.5) % Plt Count (140-400) K/mcL MPV (9.4-12.4) fL Immature Gran % (0-4) % Seg Neutrophils % % Lymphocytes % % Monocytes % % Eosinophils % % Basophils % % Neutrophils # (1.6-8.9) K/mcL Lymphocytes # (0.6-4.6) K/mcL Monocytes # (0.0-1.3) K/mcL Eosinophils # (0.0-0.6) K/mcL Basophils # (0.0-0.2) K/mcL Immature Plt Fraction (1.1-6.1) % Sodium (136-145) mEq/L Potassium (3.5-4.5) mEq/L Chloride (98-109) mEq/L Carbon Dioxide (19-29) mEq/L BUN (8-26) mg/dL Creatinine (0.72-1.25) mg/dL Est GFR ( Amer) (> 60) Est GFR (Non-Af Amer) (> 60) BUN/Creatinine Ratio (6-26) Glucose (70-99) mg/dL Calculated Osmolality (280-300) Lactic Acid (0.5-2.2) mmol/L Calcium (8.6-10.8) mg/dL Troponin I 0.03 (0-0.03) ng/mL B-Natriuretic Peptide 498 H (0-100) pg/mL
[2017-06-24] MEDS ORDERED: 0.9 % Sodium Chloride 500 ML ONE (13:01)
[2017-06-24] MEDS ORDERED: Lidocaine 1% 20 ML MDV INFILT ONE (13:07)
[2017-06-24] MEDS ORDERED: 0.9 % Sodium Chloride 500 ML IVC ONE (13:14)
[2017-06-24 13:35] LABS: Basophils % 0.3 %; Eosinophils # 0.2 K/mcL (0.0-0.6); Hemoglobin 8.9 g/dL (12.9-16.9); Immature Granulocytes % 1.2 % (0-4); Immature Platelets 2.9 % (1.1-6.1); Lymphocytes # 0.9 K/mcL (0.6-4.6); Lymphocytes % 10.1 %; Mean Corpuscular HGB Conc 31.8 g/dL (31.6-35.5); Mean Corpuscular Hemoglobin 30.6 pg (28.0-33.3); Mean Corpuscular Volume 96.2 fL (83.0-100.0); Mean Platelet Volume 10.4 fL (9.4-12.4); Monocytes # 0.5 K/mcL (0.0-1.3); Monocytes % 5.5 %; Platelet Count 241 K/mcL (140-400); Red Blood Count 2.91 M/mcL (4.19-5.50); Red Cell Distribution Width 17.4 % (11.5-14.5); Segmented Neutrophils % 80.9 %
[2017-06-24 13:47] LABS: Potassium 4.7 mEq/L (3.5-4.5)
[2017-06-24] MEDS ORDERED: *HR* Morphine 2 MG/ML SYRINGE IVP PRN (17:35)
[2017-06-24] MEDS ORDERED: Acetaminophen 325 MG TABLET PO PRN (17:35)
[2017-06-24] MEDS ORDERED: Naloxone 0.4 MG/ML INJ IVP PRN (17:35)
[2017-06-24] MEDS ORDERED: Ondansetron 4 MG/2 ML VIAL IVP PRN (17:35)
[2017-06-24] MEDS ORDERED: *HR* Promethazine 25 MG/ML VIAL IVP PRN (17:35)
[2017-06-24] MEDS ORDERED: MOM Conc 10 ML UD.LIQ PO PRN (17:40)
[2017-06-24] MEDS ORDERED: Furosemide 40 MG TABLET PO PRN (17:40)
--- NOTE | 2017-06-24 17:49 | Internal Med History&Physical ---
Date of Encounter: 06/24/17 Time of Encounter: 17:44 Assessment and Plan (1) DANIEL (acute kidney injury) Current visit: Yes Status: Acute Will admit the pt into Tele Mostly due to dehydration and hypovolemic / hypotension / medication Improved BP now Since he does have severe diastolic CHF..No need of IVF Encourage more PO intake Held all the BP meds and Lasix Resume lasix in AM if his symptoms improve cont close monitoring (2) Hypotension Current visit: No Status: Resolved mostly due to dehydration / poor PO intake Improved now cont close monitoring Qualifiers: Hypotension type: unspecified hypotension type Qualified Code(s): I95.9 - Hypotension, unspecified (3) Dehydration Current visit: Yes Status: Acute see above His poor po intake and sleepiness pt attributes to his trazodone..will stop it now (4) Superficial incisional surgical site infection Current visit: No Status: Acute Seems to be improving cont empirical abx Cefepime and Vanco as directed by ID before Orhto consulted for wound care Qualifiers: Encounter type: initial encounter Qualified Code(s): T81.4XXA - Infection following a procedure, initial encounter (5) Status post revision of total hip Current visit: No Status: Acute stable (6) Diabetes Current visit: No Status: Chronic resumed home meds on ISS low grade Qualifiers: Diabetes mellitus type: type 2 Diabetes mellitus complication status: without complication 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 Huddleston is a 72 year old male with history of diabetes, hypertension, CAD S/P CABG, A. fib on Coumadin, CHF, S/P hip replacement, who had revision of Left femoral head twice this month on 06/01/17 and 06/04/17, recently started noticing erythema and discharge around the surgical incision site for which he did see Ortho. He was just got discharged from hospital 2 days ago for his Left total hip arthroplasty dislocation for which pt had closed reduction done on 06/18/17. Pt was seen by ID for his superficial surgical site infection and d /c him back to SNF with IV Vancomycin and Cefepime. Now pt stated that last 2 days he was so sleepy so did not take much PO intake, this [facility] at [facility] he happened to have low BP in 70's. Now his BP in 100's , he denied any CP / SOB. He stated he is feeling lot better than when he was discharged from hospital. Past Med Surg Social Fam HX - Past Medical History Medical history: atrial fibrillation, CHF, COPD, coronary artery disease, CVA, DVT, diabetes, GERD, hypertension, myocardial infarction, syncope Psychiatric history: anxiety, PTSD - Past Surgical History Surgical History: appendectomy, carotid endarterectomy, coronary bypass (CABG), hip replacement, LE stent(s), orthopedic, other, vascular surgery, pacemaker - Social History Smoking Status: Former smoker Smokeless Tobacco Status: No Alcohol use: none Drug use: none - Family History Father Living Status: Hx Family Cancer: Yes Internal Medicine - H&P: Meds GlipiZIDE [Glucotrol] 7.5 mg PO BID 04/13/15 [History] Atorvastatin [Lipitor] 10 mg PO HS 10/16/15 [History] Albuterol Sulfate [Albuterol Inhaler] 2 puff IH QID PRN 06/01/17 [History] Cholecalciferol (Vitamin D3) [Vitamin D3] 2,000 unit PO DAILY 06/01/17 [History] Metoprolol Succinate 25 mg PO DAILY 06/01/17 [History] Sertraline [Zoloft] 100 mg PO QPM 06/01/17 [History] Warfarin [Coumadin] 2 mg PO TH 06/01/17 [History] Warfarin [Coumadin] 4 mg PO SUMOTUWEFRSA 06/01/17 [History] amLODIPine [Norvasc] 5 mg PO DAILY 06/01/17 [History] Magnesium Hydroxide [Milk of Magnesia] 2,400 mg PO HS PRN 06/03/17 [History] Polyethylene Glycol 3350 [MiraLAX] 17 gm PO BID PRN 06/03/17 [History] Tiotropium [Spiriva] 18 mcg IH 0700 06/03/17 [History] Travoprost [Travatan Z] 1 drop BOTH EYES HS 06/03/17 [History] traZODone [TraZODone] 50 mg PO HS PRN 06/03/17 [History] Ipratropium/Albuterol Neb [Duoneb] 3 ml IH QID PRN #1 06/06/17 [Rx] Clopidogrel [Plavix] 75 mg PO DAILY 06/19/17 [History] Ferrous Sulfate [Iron] 325 mg PO BID 06/19/17 [History] Furosemide [Lasix] 40 mg PO DAILY PRN 06/19/17 [History] Levothyroxine [Synthroid] 50 mcg PO 0630 06/19/17 [History] MOM Conc [MILK OF MAGNESIA conc] 30 ml PO HS PRN 06/19/17 [History] Pregabalin [Lyrica] 150 mg PO TID 06/19/17 [History] Sennosides/Docusate Sodium [Senna-Docusate Sodium Tablet] 2 tab PO BID PRN 06/19 [History] Cefepime HCl/Dextrose, Iso-Osm [Cefepime 2 gm Injection] 2 gm IV BID 21 Days froz.piggy 06/22/17 [Rx] OxyCODONE Immed Rel [Roxicodone 5 MG] 5 mg PO Q4H PRN #20 tablet 06/22/17 [Rx] Saccharomyces Boulardii [Florastor] 250 mg PO BID #60 capsule 06/22/17 [Rx] Vancomycin HCl in Dextrose 5 % [Vancomycin-D5w 1.25 Gram/250Ml] 1.25 gm IV DAILY 21 Days mls 06/22/17 [Rx] 3 Allergy/AdvReac Type Severity Reaction Status Date / Time azithromycin Allergy See Verified 06/19/17 09:01 Comments ceftriaxone Allergy See Verified 06/19/17 09:01 Comments morphine Allergy See Verified 06/19/17 09:01 Comments sulfamethoxazole AdvReac See Verified 06/19/17 09:01 [From Bactrim] Comments trimethoprim [From Bactrim] AdvReac See Verified 06/19/17 09:01 Comments All Systems PM: A 10-system review of systems was performed and is negative for pertinent findings except as documented above in the HPI. Review of systems: Reviewed all the systems and symptoms everything is benign except the symptoms and systems I mentioned in HPI - Constitutional Vitals: Temp Pulse Resp BP Pulse Ox 97.5 F L 102 18 107/69 96 06/24/17 15:35 06/24/17 15:35 06/24/17 15:35 06/24/17 15:35 06/24/17 15:44 General appearance: Present: A&O X 3, no acute distress, answers questions appropriately - Head Head exam: Present: atraumatic, normal inspection - Neck Neck exam general surgery: Present: supple - Respiratory Respiratory exam: Present: decreased breath sounds. Absent: rales, respiratory distress, rhonchi, wheezes - Cardiovascular Cardiovascular exam: Present: RRR, +S1, +S2. Absent: systolic murmur - GI/Abdominal GI/Abdominal exam: Present: normal bowel sounds, soft. Absent: distended, rebound, rigid, tenderness - Extremities Exam Extremities exam: Present: pedal edema (trace), tenderness (mild tenderness over Left hip area.). Absent: calf tenderness Additional comments: improved erythema and no active discharge or drainage noticed over Left hip area. - Back Exam Back exam: Absent: CVA tenderness (L), CVA tenderness (R) - Neurological Exam Neurological exam: Present: alert, oriented X3 - Psychiatric Psychiatric exam: Present: normal affect, normal mood Internal Med - H&P Results - Labs CBC & Chem 7: 06/24/17 13:27 06/24/17 13:27
[2017-06-24] MEDS ORDERED: Warfarin perPT PO PRN (18:00)
[2017-06-24] MEDS ORDERED: *HR* Warfarin 4 MG TABLET PO SCH (18:00)
[2017-06-24] MEDS ORDERED: *HR* GlipiZIDE 5 MG TABLET PO SCH (21:00)
[2017-06-24] MEDS ORDERED: NON-FORMULARY MEDICATION 1 EACH EACH (Cefepime Hcl/Dextrose, Iso-Osm [Cefepime 2 Gm Inject IV SCH (21:00)
[2017-06-24] MEDS ORDERED: Cefepime HCl 2,000 MG in D5% in Water (Mini-Bag+) 100 ML IVPB SCH (21:00)
[2017-06-24] MEDS ORDERED: Dextrose Gel 15 GM PO PRN ×2 (21:08)
[2017-06-24] MEDS ORDERED: *HR* Dextrose 50 % in Water (Syg) 50 ML SYRINGE IVP PRN (21:08)
[2017-06-24] MEDS ORDERED: D5% in Water 1,000 ML IVC PRN (21:08)
[2017-06-24] MEDS: Pregabalin 75 MG CAPSULE PO SCH (21:11)
[2017-06-24] MEDS ORDERED: Insulin LISPRO 300 UNITS/3 ML VIAL SQ SCH (21:15)
[2017-06-24] MEDS: *HR* HYDROcodone/Acet 5/325 mg TABLET PO PRN (21:39)
[2017-06-24] MEDS: Latanoprost 2.5 ML BOTTLE BOTH EYES SCH (21:49)
[2017-06-25] MEDS ORDERED: 0.9 % Sodium Chloride 500 ML IVC ONE ×3 (00:35→14:35)
[2017-06-25] MEDS ORDERED: Insulin LISPRO 300 UNITS/3 ML VIAL SQ ONE (00:41)
[2017-06-25 01:40] LABS: Basophils % 0.2 %; Hematocrit 27.3 % (37.5-50.1); Hemoglobin 8.8 g/dL (12.9-16.9); Immature Granulocytes % 1.2 % (0-4); Lymphocytes # 0.5 K/mcL (0.6-4.6); Lymphocytes % 8.4 %; Mean Corpuscular HGB Conc 32.2 g/dL (31.6-35.5); Mean Corpuscular Hemoglobin 30.1 pg (28.0-33.3); Mean Corpuscular Volume 93.5 fL (83.0-100.0); Mean Platelet Volume 10.8 fL (9.4-12.4); Monocytes # 0.1 K/mcL (0.0-1.3); Monocytes % 2.1 %; Neutrophils # 5.3 K/mcL (1.6-8.9); Platelet Count 224 K/mcL (140-400); Red Blood Count 2.92 M/mcL (4.19-5.50); Red Cell Distribution Width 17.2 % (11.5-14.5); Segmented Neutrophils % 88.1 %
[2017-06-25 01:50] LABS: Beta-Hydroxybutyric Acid 0.42 mmol/L (0.02-0.27)
[2017-06-25 01:51] LABS: Magnesium 1.7 mg/dL (1.6-2.6); Potassium 4.4 mEq/L (3.5-4.5)
[2017-06-25 01:52] LABS: INR 2.8; Prothrombin Time 31.1 Seconds (9.4-12.1)
[2017-06-25] MEDS: Insulin LISPRO 300 UNITS/3 ML VIAL SQ SCH ×5 (05:25→17:43)
[2017-06-25] MEDS: Ipratropium/Albuterol Neb 3 ML IH PRN ×2 (05:33→21:35)
[2017-06-25] MEDS ORDERED: Insulin LISPRO 300 UNITS/3 ML VIAL SQ SCH ×2 (07:30→21:00)
[2017-06-25] MEDS: Pregabalin 75 MG CAPSULE PO SCH ×2 (08:32→21:00)
[2017-06-25] MEDS: Cholecalciferol (D-3) 1,000 UNIT TABLET PO SCH (08:32)
--- NOTE | 2017-06-25 09:13 | Orthopedic Consult Note ---
Date of Encounter: 06/25/17 Time of Encounter: 16:45 Assessment and Plan (1) Status post total hip replacement, left Current Visit: Yes Status: Acute Left Hip: Incision; less erythema today; proximal wound dehiscence with granulation tissue present. Rl removed without difficulty. TID-BID dressing changes per saturation. Continue with IV vancomycin and cefepime. F/up in office. No evidence of intra-articular involvement at this time, labs reviewed. Medical treatment per hospitalist. History of Present Illness Chief complaint: Left Hip Post-op HPI: Mr. Huddleston is a 72 year old male, s/p Right hip reduction of THR with , prior patient for hip instability and THR-revision. Patient residing at [facility] and [facility] admission. Left Hip: Incision; less erythema today; proximal wound dehiscence with granulation tissue present. Rl removed without difficulty. TID-BID dressing changes per saturation. Continue with IV vancomycin and cefepime. F/up in office. No evidence of intra-articular involvement at this time, labs reviewed. Medical treatment per hospitalist. Past Med Surg Social Fam HX - Past Medical History Medical history: atrial fibrillation, CHF, COPD, coronary artery disease, CVA, DVT, diabetes, GERD, hypertension, myocardial infarction, syncope Psychiatric history: anxiety, PTSD - Past Surgical History Surgical History: appendectomy, carotid endarterectomy, coronary bypass (CABG), hip replacement, LE stent(s), orthopedic, other, vascular surgery, pacemaker - Social History Smoking Status: Former smoker Smokeless Tobacco Status: No Alcohol use: none Drug use: none - Family History Father Living Status: Hx Family Cancer: Yes Medications and Allergies GlipiZIDE [Glucotrol] 7.5 mg PO BID 04/13/15 [History] Atorvastatin [Lipitor] 10 mg PO HS 10/16/15 [History] Albuterol Sulfate [Albuterol Inhaler] 2 puff IH QID PRN 06/01/17 [History] Cholecalciferol (Vitamin D3) [Vitamin D3] 2,000 unit PO DAILY 06/01/17 [History] Metoprolol Succinate 25 mg PO DAILY 06/01/17 [History] Sertraline [Zoloft] 100 mg PO QPM 06/01/17 [History] Warfarin [Coumadin] 2 mg PO TH 06/01/17 [History] Warfarin [Coumadin] 4 mg PO SUMOTUWEFRSA 06/01/17 [History] amLODIPine [Norvasc] 5 mg PO DAILY 06/01/17 [History] Polyethylene Glycol 3350 [MiraLAX] 17 gm PO DAILY PRN 06/03/17 [History] Tiotropium [Spiriva] 18 mcg IH 0700 06/03/17 [History] Travoprost [Travatan Z] 1 drop BOTH EYES HS 06/03/17 [History] traZODone [TraZODone] 50 mg PO HS PRN 06/03/17 [History] Ipratropium/Albuterol Neb [Duoneb] 3 ml IH QID PRN #1 06/06/17 [Rx] Clopidogrel [Plavix] 75 mg PO DAILY 06/19/17 [History] Ferrous Sulfate [Iron] 325 mg PO BID 06/19/17 [History] Furosemide [Lasix] 40 mg PO DAILY 06/19/17 [History] Levothyroxine [Synthroid] 50 mcg PO 0630 06/19/17 [History] MOM Conc [MILK OF MAGNESIA conc] 30 ml PO HS PRN 06/19/17 [History] Pregabalin [Lyrica] 150 mg PO TID 06/19/17 [History] Sennosides/Docusate Sodium [Senna-Docusate Sodium Tablet] 2 tab PO BID PRN 06/19 [History] Cefepime HCl/Dextrose, Iso-Osm [Cefepime 2 gm Injection] 2 gm IV BID 21 Days froz.piggy 06/22/17 [Rx] Saccharomyces Boulardii [Florastor] 250 mg PO BID #60 capsule 06/22/17 [Rx] Vancomycin HCl in Dextrose 5 % [Vancomycin-D5w 1.25 Gram/250Ml] 1.25 gm IV DAILY 21 Days mls 06/22/17 [Rx] Losartan Potassium [Cozaar] 100 mg PO DAILY 06/24/17 [History] Metformin HCl [Glucophage] 1,000 mg PO BID 06/24/17 [History] OxyCODONE Immed Rel [Roxicodone 5 MG] 5 - 10 mg PO Q4H PRN 06/24/17 [History] Oxycodone HCl 20 mg PO Q12H 06/24/17 [History] Potassium Chloride [Klor-Con Sprinkle] 10 meq PO DAILY 06/24/17 [History] 3 Allergy/AdvReac Type Severity Reaction Status Date / Time azithromycin Allergy See Verified 06/19/17 09:01 Comments ceftriaxone Allergy See Verified 06/19/17 09:01 Comments morphine Allergy See Verified 06/19/17 09:01 Comments sulfamethoxazole AdvReac See Verified 06/19/17 09:01 [From Bactrim] Comments trimethoprim [From Bactrim] AdvReac See Verified 06/19/17 09:01 Comments All Systems Reviewed: A 10-system review of systems was performed and is negative for pertinent findings except as documented above in the HPI. Physical Exam - Constitutional Vitals: Temp Pulse Resp BP Pulse Ox 97.4 F L 124 15 102/70 98 06/25/17 06:45 06/25/17 06:45 06/25/17 06:45 06/25/17 06:45 06/25/17 06:45 General appearance IM: A&O X 3 Results - Labs Result Diagrams: 06/25/17 01:11 06/25/17 01:11 Labs: Abnormal lab results RBC 2.92 M/mcL (4.19-5.50) L 06/25/17 01:11 Hgb 8.8 g/dL (12.9-16.9) L 06/25/17 01:11 Hct 27.3 % (37.5-50.1) L 06/25/17 01:11 RDW 17.2 % (11.5-14.5) H 06/25/17 01:11 Lymphocytes # 0.5 K/mcL (0.6-4.6) L 06/25/17 01:11 PT 31.1 Seconds (9.4-12.1) H D 06/25/17 01:11 Sodium 132 mEq/L (136-145) L 06/25/17 01:11 Carbon Dioxide 18 mEq/L (19-29) L 06/25/17 01:11 Creatinine 1.47 mg/dL (0.72-1.25) H 06/25/17 01:11 Est GFR ( Amer) 57 (> 60) L 06/25/17 01:11 Est GFR (Non-Af Amer) 47 (> 60) L 06/25/17 01:11 Glucose 478 mg/dL (70-99) H 06/25/17 01:11 POC Glucose 348 (58-89) H 06/25/17 04:14 Calcium 8.0 mg/dL (8.6-10.8) L 06/25/17 01:11 B-Natriuretic Peptide 1111 pg/mL (0-100) H 06/25/17 01:11 Beta-Hydroxybutyric Acd 0.42 mmol/L (0.02-0.27) H 06/25/17 01:11 H & H 06/25/17 Range/Units 01:11 Hgb 8.8 L (12.9-16.9) g/dL Hct 27.3 L (37.5-50.1) % All other labs normal. Consult Discharge Plan - Plan [facility]errals: [facility]Primary Care Provider[facility] -
--- NOTE | 2017-06-25 11:17 | Electrocardiograph Report ---
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
--- NOTE | 2017-06-25 12:23 | Internal Med Progress Note ---
Date of Encounter: 06/25/17 Time of Encounter: 09:15 - Assessment and plan (1) Atrial fibrillation with RVR Current Visit: Yes Status: Acute Assessment and plan: HR 120-130 since admission Patient on admission for DANIEL he is asymptomatic Will give gentle boluses IV lopressor one time BP is borderline May need digoxin Resume Warfarin Will transfer to tele/SDU and consult cardiology if he does not improve (2) DANIEL (acute kidney injury) Current Visit: Yes Status: Acute Assessment and plan: Multifactorial Likely due to ATN from hypotension/medications IVF boluses, patient has a hx of CHFpEF Strict I/O Will obtain renal USS when stable Continue to hold Vanco/Zosyn/Losartan/Metformin/lasix Avoid nephrotoxins Monitor resp status, patient is full code (3) Superficial incisional surgical site infection Current Visit: Yes Status: Acute Assessment and plan: Wound culture noed Continue cefepime Qualifiers: Encounter type: subsequent encounter Qualified Code(s): T81.4XXD - Infection following a procedure, subsequent encounter (4) COPD (chronic obstructive pulmonary disease) Current Visit: Yes Status: Chronic Assessment and plan: No wheezing at time of review Duonebs prn Qualifiers: COPD type: chronic bronchitis Chronic bronchitis type: simple Qualified Code(s): J41.0 - Simple chronic bronchitis (5) Diabetes Current Visit: Yes Status: Chronic Assessment and plan: Uncontrolled, with hyperglycemia Possibly due to acute illness A1C is 6.1 06/08/2017 Start basal, prandial and correctional insulin Monitor FS ACHS goal FS is 140--180 Qualifiers: Diabetes mellitus type: type 2 Diabetes mellitus complication status: with hyperglycemia 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 transplanted heart: [place] heart Associated angina: without angina Qualified Code(s): I25.10 - Atherosclerotic heart disease of [place] coronary artery without angina pectoris (7) Anemia Current Visit: Yes Status: Chronic Assessment and plan: Hb at baseline Resume home iron dose Qualifiers: Anemia type: unspecified type Qualified Code(s): D64.9 - Anemia, unspecified (8) CHF (congestive heart failure) Current Visit: Yes Status: Chronic Qualifiers: Congestive heart failure type: diastolic Congestive heart failure chronicity: chronic Qualified Code(s): I50.32 - Chronic diastolic (congestive ) heart failure (9) Hypertension Current Visit: Yes Status: Chronic Assessment and plan: Currently low blood pressures Qualifiers: Hypertension type: essential hypertension Qualified Code(s): I10 - Essential (primary) hypertension (10) Hypothermia Current Visit: Yes Status: Acute Assessment and plan: T recorded as 97.2-97.4 Obtain rectal temp Frances hugger Qualifiers: Encounter type: initial encounter Qualified Code(s): T68.XXXA - Hypothermia , initial encounter - Subjective Interval history: 72 M , resident of [place] for rehab Admitted and being managed for DANIEL possibly secondary to ATN from medications- vanco/Lasix/Zosyn/Hypotension He is seen and evaluated at bedside HRis uncontrolled, BP still borderline low Denies new complains Wound culture from prior admission reviewed-Pseudomonas pansensitive Ortho eval pending at time of review - Constitutional Vitals: Temp Pulse Resp BP Pulse Ox 97.4 F L 130 18 99/70 95 06/25/17 09:00 06/25/17 09:00 06/25/17 09:00 06/25/17 09:00 06/25/17 09:00 General appearance: Present: A&O X 3, pleasant, no acute distress, answers questions appropriately - Head Head exam: Present: atraumatic, normocephalic - Eye Eye exam: Present: PERRL, conjuntiva pink, sclera anicteric Pupils: Present: PERRL - Neck Neck exam general surgery: Present: supple, trachea midline. Absent: lymphadenopathy - Respiratory Respiratory exam: Present: CTAB. Absent: accessory muscle use, rales, rhonchi, wheezes - Cardiovascular Cardiovascular exam: Present: irregular rhythm, +S1, +S2, tachycardia. Absent: diastolic murmur, gallop, rubs, systolic murmur - GI/Abdominal GI/Abdominal exam: Present: normal bowel sounds, soft, no peritoneal signs. Absent: distended, tenderness - Extremities Exam Additional comments: L hip wound dressing soaked and draining Mild surrounding swelling No erythema Distal L extremity well perfused No RLE edema - Neurological Exam Neurological exam: Present: alert, CN II-XII intact, oriented X3, no focal deficits. Absent: pronater drift, facial droop, speech deficit - Skin Skin exam: Present: dry Internal Medicine: Result - Labs CBC & Chem 7: 06/25/17 01:11 06/25/17 01:11 Labs: Short CBC 06/25/17 Range/Units 01:11 WBC 6.1 (4.3-11.1) K/mcL Hgb 8.8 L (12.9-16.9) g/dL Hct 27.3 L (37.5-50.1) % Plt Count 224 (140-400) K/mcL Neutrophils # 5.3 (1.6-8.9) K/mcL BMP 06/25/17 01:11 Sodium 132 L Potassium 4.4 Chloride 103 Carbon Dioxide 18 L BUN 25 Creatinine 1.47 H Glucose 478 H Calcium 8.0 L - ABG Interpretation ABG results: PT/INR, D-dimer PT 31.1 Seconds (9.4-12.1) H D 06/25/17 01:11 Consult Discharge Plan - Plan [facility]errals: [facility] [Primary Care Provider] -
[2017-06-25] MEDS ORDERED: Insulin DETEMIR 100 UNIT/ML X5UNITS SQ ONE (12:34)
--- NOTE | 2017-06-25 14:02 | Orthopedics Progress Note ---
Date of Encounter: 06/25/17 Time of Encounter: 14:00 Subjective Interval history: Patient seen overall doing well complaints. Patient incision dressing clean dry and intact. Patient will need to be put back in his abduction brace. Follow up in the office in 1 week. Objective Vital signs: Vital Signs Temp Pulse Resp BP Pulse Ox 06/25/17 13:00 97.4 F L 131 16 95/60 96 06/25/17 10:45 97.4 F L 130 18 99/70 95 06/25/17 08:50 97.2 F L 128 15 111/70 98 06/25/17 06:45 97.4 F L 124 15 102/70 98 06/25/17 05:33 16 98 06/25/17 04:21 97.4 F L 120 14 93/59 98 06/24/17 23:55 97.4 F L 120 14 112/75 98 06/24/17 19:09 97.4 F L 103 14 93/61 98 Intake and Output 06/24/17 06/25/17 06/25/17 23:59 07:59 15:59 Intake Total 900 / 900 700 / 700 360 / 360 Output Total 500 / 500 625 / 625 580 / 580 Balance 400 / 400 75 / 75 -220 / -220 Intake: IV Fluids 100 / 100 500 / 500 0.9 % Sodium Chloride 500 ML @ 500 / 500 1875 mls/hr IVC .Q16M ONE Rx#: [id number] Maxipime 2,000 MG In Dextrose 5 100 / 100 % (Minibag+) 100 ML 100 ML @ 200 mls/hr IVPB Q24H [facility] Rx#: [id number] Oral 800 / 800 200 / 200 360 / 360 Output: Urine 500 / 500 625 / 625 580 / 580 Other: Meal Dinner Breakfast Percent of Meal Consumed 90% 25% Weight 77 kg Blood Glucose* 493 348 256 Patient Weight 06/25/17 23:59 Weight 77 kg - Labs CBC & BMP: 06/25/17 01:11 06/25/17 01:11 Labs: Abnormal lab results RBC 2.92 M/mcL (4.19-5.50) L 06/25/17 01:11 Hgb 8.8 g/dL (12.9-16.9) L 06/25/17 01:11 Hct 27.3 % (37.5-50.1) L 06/25/17 01:11 RDW 17.2 % (11.5-14.5) H 06/25/17 01:11 Lymphocytes # 0.5 K/mcL (0.6-4.6) L 06/25/17 01:11 PT 31.1 Seconds (9.4-12.1) H D 06/25/17 01:11 Sodium 132 mEq/L (136-145) L 06/25/17 01:11 Carbon Dioxide 18 mEq/L (19-29) L 06/25/17 01:11 Creatinine 1.47 mg/dL (0.72-1.25) H 06/25/17 01:11 Est GFR ( Amer) 57 (> 60) L 06/25/17 01:11 Est GFR (Non-Af Amer) 47 (> 60) L 06/25/17 01:11 Glucose 478 mg/dL (70-99) H 06/25/17 01:11 POC Glucose 348 (58-89) H 06/25/17 04:14 Calcium 8.0 mg/dL (8.6-10.8) L 06/25/17 01:11 B-Natriuretic Peptide 1111 pg/mL (0-100) H 06/25/17 01:11 Beta-Hydroxybutyric Acd 0.42 mmol/L (0.02-0.27) H 06/25/17 01:11 Consult Discharge Plan - Plan [facility]errals: [facility] [Primary Care Provider] -
[2017-06-25] MEDS ORDERED: *HR* Metoprolol 5 MG/5 ML VIAL IVP ONE ×3 (14:36→20:46)
--- NOTE | 2017-06-25 17:05 | Event Note ---
Date of Encounter: 06/25/17 Time of Encounter: 17:04 Hip Tscope readjusted - continue with Hip Tscope and hip precautions. Continue with BID-TID dressing changes per saturation. [place] removed 06/24/17 WBAT.
[2017-06-25] MEDS ORDERED: Magnesium Sulfate 2 GM in D5% in Water 100 ML IVPB ONE (17:08)
[2017-06-25] MEDS ORDERED: *HR* Warfarin 2 MG TABLET PO SCH (18:00)
[2017-06-25] MEDS ORDERED: Insulin DETEMIR 100 UNIT/ML X5UNITS SQ SCH (21:00)
[2017-06-25] MEDS ORDERED: Cefepime HCl 2,000 MG in D5% in Water (Mini-Bag+) 100 ML IVPB SCH (21:00)
[2017-06-26] MEDS: Latanoprost 2.5 ML BOTTLE BOTH EYES SCH ×2 (00:34→21:23)
[2017-06-26 04:57] LABS: BUN/Creatinine Ratio 25 (6-26); Blood Urea Nitrogen 25 mg/dL (8-26); Calcium 8.4 mg/dL (8.6-10.8); Carbon Dioxide 23 mEq/L (19-29); Chloride 109 mEq/L (98-109); Glucose 56 mg/dL (70-99); Osmolality,Calculated 290 (280-300); Potassium 3.5 mEq/L (3.5-4.5); eGFR For African Americans > 60 (> 60); eGFR For Non-African Americans > 60 (> 60)
[2017-06-26 04:58] LABS: INR 3.2; Prothrombin Time 35.1 Seconds (9.4-12.1)
[2017-06-26 05:02] LABS: Sodium 139 mEq/L (136-145)
[2017-06-26 05:37] LABS: Basophils % 0.2 %; Eosinophils # 0.1 K/mcL (0.0-0.6); Eosinophils % 0.5 %; Hematocrit 28.1 % (37.5-50.1); Immature Granulocytes % 1.9 % (0-4); Lymphocytes # 1.5 K/mcL (0.6-4.6); Lymphocytes % 12.6 %; Mean Corpuscular Hemoglobin 29.6 pg (28.0-33.3); Mean Corpuscular Volume 92.4 fL (83.0-100.0); Mean Platelet Volume 10.9 fL (9.4-12.4); Monocytes # 0.8 K/mcL (0.0-1.3); Monocytes % 6.4 %; Neutrophils # 9.6 K/mcL (1.6-8.9); Platelet Count 265 K/mcL (140-400); Red Blood Count 3.04 M/mcL (4.19-5.50); Red Cell Distribution Width 17.2 % (11.5-14.5); Segmented Neutrophils % 78.4 %
[2017-06-26] MEDS: Tiotropium 18 MCG inhalation IH SCH (08:00)
--- NOTE | 2017-06-26 08:47 | Internal Med Progress Note ---
Date of Encounter: 06/26/17 Time of Encounter: 10:20 - Assessment and plan (1) Atrial fibrillation with RVR Current Visit: Yes Status: Acute Assessment and plan: HR 120-130 on admission RVR resolved HR now controlled INR is supratherapeutic, continue Coumadin, pharmacy to dose (2) DANIEL (acute kidney injury) Current Visit: Yes Status: Acute Assessment and plan: Multifactorial Likely due to ATN from hypotension/medications I/O negative 555 Continue to hold Vanco/Zosyn/Losartan/Metformin Renal function this morning improved Restart lasix at low dose, continue to monitor Avoid nephrotoxins Monitor resp status, patient is full code (3) Superficial incisional surgical site infection Current Visit: Yes Status: Acute Assessment and plan: Wound culture noted Continue cefepime, increase to q12 Consult Infectious disease for duration of therapy Consult to wound care for wound dressing recommendations, continue TID dressing till review Qualifiers: Encounter type: subsequent encounter Qualified Code(s): T81.4XXD - Infection following a procedure, subsequent encounter (4) COPD (chronic obstructive pulmonary disease) Current Visit: Yes Status: Chronic Assessment and plan: No wheezing at time of review Duonebs prn Qualifiers: COPD type: chronic bronchitis Chronic bronchitis type: simple Qualified Code(s): J41.0 - Simple chronic bronchitis (5) Diabetes Current Visit: Yes Status: Chronic Assessment and plan: Uncontrolled, with hyperglycemia Possibly due to acute illness A1C is 6.1 06/08/2017 Start basal, prandial and correctional insulin Monitor FS ACHS goal FS is 140--180 Qualifiers: Diabetes mellitus type: type 2 Diabetes mellitus complication status: with hyperglycemia 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 transplanted heart: [place] heart Associated angina: without angina Qualified Code(s): I25.10 - Atherosclerotic heart disease of [place] coronary artery without angina pectoris (7) Anemia Current Visit: Yes Status: Chronic Assessment and plan: Hb at baseline Resume home iron dose Qualifiers: Anemia type: unspecified type Qualified Code(s): D64.9 - Anemia, unspecified (8) CHF (congestive heart failure) Current Visit: Yes Status: Chronic Assessment and plan: DANIEL and dehydration n admission BNP was elevated, patient is euvolemic DANIEL has resolved Resume lasix at low dose Chest is CTAB in all quadrants Qualifiers: Congestive heart failure type: diastolic Congestive heart failure chronicity: chronic Qualified Code(s): I50.32 - Chronic diastolic (congestive ) heart failure (9) Hypertension Current Visit: Yes Status: Chronic Assessment and plan: Improved blood pressure Increase metoprolol Qualifiers: Hypertension type: essential hypertension Qualified Code(s): I10 - Essential (primary) hypertension (10) Hypothermia Current Visit: Yes Status: Acute Assessment and plan: T recorded as 97.2-97.4 Obtain rectal temp Frances hugger Qualifiers: Encounter type: initial encounter Qualified Code(s): T68.XXXA - Hypothermia , initial encounter - Subjective Interval history: 72 M , resident of [place] for rehab Admitted and being managed for DANIEL possibly secondary to ATN from medications- vanco/Lasix/Zosyn/Hypotension He is seen and evaluated at bedside His HR has improved, as well as his blood pressure DANIEL has resolved with this morning's lab Wound culture from prior admission reviewed-Pseudomonas pansensitive He was started on Cefepime by admitting team, we will adjust it to his improved kidney function Infectious disease will be consulted for duration of therapy Patient reports he feels slightly improved and not ad fatigued as he was on admission Afib with RVR has improved and HR is controlled now - Constitutional Vitals: Temp Pulse Resp BP Pulse Ox 97.4 F L 82 18 133/75 99 06/26/17 07:51 06/26/17 07:51 06/26/17 08:00 06/26/17 07:51 06/26/17 08:00 General appearance: Present: A&O X 3, pleasant, no acute distress, answers questions appropriately - Head Head exam: Present: atraumatic, normocephalic - Eye Eye exam: Present: PERRL, conjuntiva pink, sclera anicteric Pupils: Present: PERRL - Neck Neck exam general surgery: Present: supple, trachea midline. Absent: lymphadenopathy - Respiratory Respiratory exam: Present: CTAB. Absent: accessory muscle use, rales, rhonchi, wheezes - Cardiovascular Cardiovascular exam: Present: irregular rhythm, +S1, +S2. Absent: diastolic murmur, gallop, rubs, systolic murmur - GI/Abdominal GI/Abdominal exam: Present: normal bowel sounds, soft, no peritoneal signs. Absent: distended, tenderness - Extremities Exam Extremities exam: Present: warm, radial pulses palpable and symmetrical. Absent : calf tenderness, cyanotic, pedal edema Additional comments: R hip wound dressing slightly soaked, no surrounding erythema, slight swelling around surrounding skin - Neurological Exam Neurological exam: Present: alert, CN II-XII intact, oriented X3, no focal deficits. Absent: pronater drift, facial droop, speech deficit - Skin Skin exam: Present: dry, intact Internal Medicine: Result - Labs CBC & Chem 7: 06/26/17 04:04 06/26/17 04:04 Labs: Short CBC 06/26/17 Range/Units 04:04 WBC 12.2 H D (4.3-11.1) K/mcL Hgb 9.0 L (12.9-16.9) g/dL Hct 28.1 L (37.5-50.1) % Plt Count 265 (140-400) K/mcL Neutrophils # 9.6 H (1.6-8.9) K/mcL BMP 06/26/17 04:04 Sodium 139 D Potassium 3.5 Chloride 109 Carbon Dioxide 23 BUN 25 Creatinine 0.99 Glucose 56 L Calcium 8.4 L - ABG Interpretation ABG results: PT/INR, D-dimer PT 35.1 Seconds (9.4-12.1) H 06/26/17 04:04 Consult Discharge Plan - Plan [facility]errals: [facility] [Primary Care Provider[facility] - Laina Smith MD [Partnered Physician] - 07/08/17 1:00 pm
[2017-06-26] MEDS: Insulin LISPRO 300 UNITS/3 ML VIAL SQ SCH ×5 (08:52→20:48)
[2017-06-26] MEDS: Pregabalin 75 MG CAPSULE PO SCH ×2 (09:33→21:21)
[2017-06-26] MEDS: Cholecalciferol (D-3) 1,000 UNIT TABLET PO SCH (09:34)
--- NOTE | 2017-06-26 11:25 | Infectious Disease Consult ---
Date of Encounter: 06/26/17 Time of Encounter: 11:24 Assessment and Plan (1) Superficial incisional surgical site infection Status: Acute Assessment and plan: Location: Left hip. Status post left hip hardware removal 06/01/17 and revision of femoral head length of total hip 06/04/17, both procedures by Dr. Cannon. Failed oral antibiotics outpatient. Intra-operative cultures from 06/01/17 and 06/04/17 were negative. The patient developed some superficial erythema and wound drainage after his second surgery despite oral antibiotic prophylaxis post-op. Wound culture obtained 06/21/17 grew out melgoza-sensitive Pseudomonas aeruginosa. Culture finalized after patient was discharged and no on was notified that the culture had come back positive. Given the negative cultures prior to discharge during his last hospitalization and the patient being a poor surgical candidate if the infection got the hardware, we opted to treat aggressively with broad-spectrum IV antibiotics and base duration of treatment on how the patient did clinically. Since we now have a causative organism, we can de-escalate antibiotics to minimize risk of additional kidney injury and development of resistance. Discontinue Cefepime. Start Levaquin 750mg IV daily. Duration of treatment depends on the clinical picture, but likely 2-4 weeks of IV antibiotics followed by orals. We will follow the patient's inflammatory markers and how he is doing clinically before we determine exact duration. Monitor renal function and for drug toxicity and dose-adjust antibiotics. Consult VAT for EPIV placement. Will need weekly CBC, BUN/Cr, ESR, CRP, and Vanc trough every Thursday for the duration of treatment. Will need weekly midline/PICC care per protocol. Follow up with ID 07/08/17 at 1300. Continue wound care and activity restrictions per the ortho team. Qualifiers: Encounter type: subsequent encounter Qualified Code(s): T81.4XXD - Infection following a procedure, subsequent encounter (2) DANIEL (acute kidney injury) Status: Acute Assessment and plan: Etiology unclear, but likely secondary to Vancomycin use. Vanc has been discontinued. DANIEL has resolved. Continue to trend. Dose-adjust antibiotics. Avoid nephrotoxins as able. (3) Atrial fibrillation with RVR Status: Acute Assessment and plan: Etiology unclear. Resolved. Further management per the primary team. (4) Acute exacerbation of chronic obstructive airways disease Status: Acute (5) Anemia Status: Chronic Assessment and plan: Stable. No acute bleeding noted on exam. Further workup and management per the primary team. Qualifiers: Anemia type: unspecified type Qualified Code(s): D64.9 - Anemia, unspecified (6) Diastolic CHF, chronic Status: Chronic (7) Status post total hip replacement, left Status: Acute Infectious Disease HPI - Data of Consult Patient: known to practice within the last 3 years Consult date: 06/26/17 Requesting Physician: Davin Junior MD [facility] - Consult Narrative Reason for consult: Left hip infection History of present illness: Mr. Huddleston is a 72 year old male with history of A. fib, CHF, COPD, CAD status post CABG, CVA, DVT, LA, remote history of THR in 1999 with ORIF of left femur 12 weeks later secondary to fracture, status post left hip hardware removal 06/01, and status post revision of femoral head length of the left total hip . The patient was previously admitted back on the for left hip dislocation. During that hospitalization, we were consulted for antibiotic recommendations regarding a possible left hip infection. The patient was discharged to the [facility] on IV antibiotics and came back to the hospital 06/24/17 with complaints of shortness of breath and was noted to be in acute kidney injury. We are consulted June 26 for additional antibiotic recommendations regarding the left hip infection. Sleep, the patient is a 72-year-old male with past medical history as stated above. The patient had a left total hip replacement in 2000 followed by a left femur fracture a few months later requiring ORIF. He until about 6 months ago when he started having pain again. A bone scan showed concern for loosening of the hardware see what to the OR on June 01, 2017 and had a left hip removal of hardware in which part of the femur plate was removed. Intraoperative cultures at that time were negative. Shortly after discharge, the patient fell sustaining a left hip dislocation requiring a revision of the femoral head length of the total left hip on June 04, 2017. Again, intra-op cultures were obtained and were negative. The patient had a small amount of drainage from the wound based on a seven-day course of oral doxycycline. He was seen by [facility] June 18 and was noted to have increased redness, drainage, and wound dehiscence and had a midline inserted with plans to start IV Zosyn and IV Zyvox. The patient began to experience severe left hip pain and was brought back to the ED. CT of the left hip show dislocation and fat stranding deep to the anahi. The patient was afebrile hemodynamically stable and labs were normal. He was started on empiric IV antibiotics and admitted. The patient was taken to the operating room on June 20 and had a closed reduction of the left hip dislocation. The patient remained afebrile and hemodynamically stable. We were asked to evaluate for antibiotic recommendations. At that time, culture that was obtained on June 21 was preliminarily negative. We opted to treat aggressively and the patient was placed on IV vancomycin and IV cefepime. [facility] and since discharge had a wound culture come back positive for pansensitive Levaquin. He was readmitted here on the for acute exacerbation of COPD and CHF. He has only been on cefepime since being here in the hospital as it was felt that the vancomycin likely was contributing to his acute kidney injury. We've been asked to evaluate and make further recommendations. Today, the patient states that overall he feels well. He reports minimal hip pain. He denies any fevers or chills or rigors. He denies any congestion, earache, or sore throat. He denies any chest pain, and states her shortness of breath is better. He reports a dry cough that is persistent. He denies any nausea, vomiting, diarrhea, constipation. He denies any abdominal pain or urinary complaints. He states his appetite is good. He denies pain in his joints or other extremities. He denies pain in his back. He denies any oral thrush or new skin lesions. CC: Davin Junior MD Past Med Surg Social Fam HX - Past Medical History Attestation: Yes The following information was validated with the patient. Source: patient, old records reviewed, nursing notes reviewed Medical history: atrial fibrillation, CHF, COPD, coronary artery disease, CVA, DVT, diabetes, GERD, hypertension, myocardial infarction, syncope Psychiatric history: anxiety, PTSD - Past Surgical History Surgical History: appendectomy, carotid endarterectomy, coronary bypass (CABG), hip replacement, LE stent(s), orthopedic, other, vascular surgery, pacemaker - Social History Smoking Status: Former smoker Smokeless Tobacco Status: No Alcohol use: none Drug use: none Occupational status: retired Current living situation: [facility] [place] Activity Level: Uses cane/walker Recent Out of Country Travel Within the Last 8 Weeks: No Exposure or Possible Exposure to Illness During Travel: No - Family History Father Living Status: Hx Family Cancer: Yes Infectious Disease-CN:Meds GlipiZIDE [Glucotrol] 7.5 mg PO BID 04/13/15 [History] Atorvastatin [Lipitor] 10 mg PO HS 10/16/15 [History] Albuterol Sulfate [Albuterol Inhaler] 2 puff IH QID PRN 06/01/17 [History] Cholecalciferol (Vitamin D3) [Vitamin D3] 2,000 unit PO DAILY 06/01/17 [History] Metoprolol Succinate 25 mg PO DAILY 06/01/17 [History] Sertraline [Zoloft] 100 mg PO QPM 06/01/17 [History] Warfarin [Coumadin] 2 mg PO TH 06/01/17 [History] Warfarin [Coumadin] 4 mg PO [id number] 06/01/17 [History] amLODIPine [Norvasc] 5 mg PO DAILY 06/01/17 [History] Polyethylene Glycol 3350 [MiraLAX] 17 gm PO DAILY PRN 06/03/17 [History] Tiotropium [Spiriva] 18 mcg IH 0700 06/03/17 [History] Travoprost [Travatan Z] 1 drop BOTH EYES HS 06/03/17 [History] traZODone [TraZODone] 50 mg PO HS PRN 06/03/17 [History] Ipratropium/Albuterol Neb [Duoneb] 3 ml IH QID PRN #1 06/06/17 [Rx] Clopidogrel [Plavix] 75 mg PO DAILY 06/19/17 [History] Ferrous Sulfate [Iron] 325 mg PO BID 06/19/17 [History] Furosemide [Lasix] 40 mg PO DAILY 06/19/17 [History] Levothyroxine [Synthroid] 50 mcg PO 0630 06/19/17 [History] MOM Conc [MILK OF MAGNESIA conc] 30 ml PO HS PRN 06/19/17 [History] Pregabalin [Lyrica] 150 mg PO TID 06/19/17 [History] Sennosides/Docusate Sodium [Senna-Docusate Sodium Tablet] 2 tab PO BID PRN 06/19 [History] Cefepime HCl/Dextrose, Iso-Osm [Cefepime 2 gm Injection] 2 gm IV BID 21 Days froz.piggy 06/22/17 [Rx] Saccharomyces Boulardii [Florastor] 250 mg PO BID #60 capsule 06/22/17 [Rx] Vancomycin HCl in Dextrose 5 % [Vancomycin-D5w 1.25 Gram/250Ml] 1.25 gm IV DAILY 21 Days mls 06/22/17 [Rx] Losartan Potassium [Cozaar] 100 mg PO DAILY 06/24/17 [History] Metformin HCl [Glucophage] 1,000 mg PO BID 06/24/17 [History] OxyCODONE Immed Rel [Roxicodone 5 MG] 5 - 10 mg PO Q4H PRN 06/24/17 [History] Oxycodone HCl 20 mg PO Q12H 06/24/17 [History] Potassium Chloride [Klor-Con Sprinkle] 10 meq PO DAILY 06/24/17 [History] 3 Allergy/AdvReac Type Severity Reaction Status Date / Time azithromycin Allergy See Verified 06/19/17 09:01 Comments ceftriaxone Allergy See Verified 06/19/17 09:01 Comments morphine Allergy See Verified 06/19/17 09:01 Comments sulfamethoxazole AdvReac See Verified 06/19/17 09:01 [From Bactrim] Comments trimethoprim [From Bactrim] AdvReac See Verified 06/19/17 09:01 Comments All systems: reviewed and no additional remarkable complaints except as stated Exam - Constitutional Vitals: Temp Pulse Resp BP Pulse Ox 97.5 F L 65 17 137/67 95 06/26/17 11:19 06/26/17 11:19 06/26/17 11:19 06/26/17 11:19 06/26/17 11:19 General appearance: average body habitus, cooperative, no acute distress - Head Head exam: Present: atraumatic, normal inspection, normocephalic - Eye Eye exam: Present: EOMI, normal appearance, PERRL Pupils: Present: normal accommodation - ENT ENT exam: Present: mucous membranes moist - Neck Neck exam: Present: normal inspection - Respiratory Respiratory exam: Present: CTAB. Absent: rales, respiratory distress, rhonchi, wheezes - Cardiovascular Cardiovascular exam: Present: RRR, +S1, +S2 - GI/Abdominal GI/Abdominal exam: Present: normal bowel sounds, soft. Absent: distended, tenderness - Extremities Exam Extremities exam: Present: joint swelling (Mild, left hip), pedal edema (1+ LLE) . Absent: tenderness Additional comments: Left lateral hip incision with moderate amount of light pink drainage noted. No surrounding erythema, warmth, or tenderness noted. - Neurological Exam Neurological exam: Present: alert, oriented X3, no focal deficits - Psychiatric Psychiatric exam: Present: normal affect, normal mood - Skin Skin exam: Present: dry, intact, normal color, warm Infectious Disease CN: Results - Labs CBC & Chem 7: 06/26/17 04:04 06/26/17 04:04 Consult Discharge Plan - Plan [facility]errals: [facility]Primary Care Provider[facility] - Laina Smith MD [Partnered Physician] - 07/08/17 1:00 pm
[2017-06-26] MEDS: Furosemide 20 MG TABLET PO SCH (15:15)
[2017-06-26] MEDS: Levofloxacin 750 MG/150 ML 750 MG/150 ML BAG IVPB SCH (15:15)
[2017-06-26] MEDS ORDERED: Cefepime HCl 2,000 MG in D5% in Water 100 ML IVP SCH (18:00)
--- NOTE | 2017-06-26 19:12 | Orthopedics Progress Note ---
Date of Encounter: 06/26/17 Time of Encounter: 12:00 - Assessment and Plan (1) Status post total hip replacement, left Current Visit: Yes Status: Acute atient to wear brace when ambulating. Would recommend purple hip abduction pillow rather than towels patient currently had between legs to help prevent dislocation. patient to follow up with [facility] once discharged from hospital on outpatient basis. (2) Superficial incisional surgical site infection Current Visit: Yes Status: Acute Continue per wound care orders and Infectious disease. Qualifiers: Encounter type: subsequent encounter Qualified Code(s): T81.4XXD - Infection following a procedure, subsequent encounter Subjective Principal diagnosis: left hip wound Interval history: Mr. Huddleston is a pleasant 72 year old male well known to [facility]. Patient resting comfortably in bed. States he is relatively pain free. Incision inspected revealing superficial dehiscence majority of length of left hip incision. Slough and bloody serousanguinous drainage noted from full length of incision. Skin surrounding wound is edematous though not erythematous. 3 ABDs and medipore tape applied. patient is neurovascularly intact. Continue with BID-TID dressing changes per saturation. Wound care consulted for recommendations as patient was diagnosed with pseudomonas. [place] removed 06/24/17. WBAT. patient was again not wearing hip tscope. During wound inspection right SI joint area superficial abrasion noted with erythema serous drainage noted. Nursing states this is from wearing brace. patient to wear brace when ambulating. Would recommend purple hip abduction pillow rather than towels patient currently had between legs to help prevent dislocation. patient to follow up with [facility] once discharged from hospital on outpatient basis. Objective Vital signs: Vital Signs Temp Pulse Resp BP Pulse Ox 06/26/17 19:10 97.7 F 64 14 147/66 98 06/26/17 14:45 97.7 F 66 15 135/69 96 06/26/17 11:19 97.5 F L 65 17 137/67 95 06/26/17 09:33 95 06/26/17 08:00 18 99 06/26/17 07:51 97.4 F L 82 18 133/75 98 06/26/17 05:03 97.5 F L 71 18 125/65 96 06/26/17 02:22 97.1 F L 59 15 117/76 94 06/25/17 23:52 97.6 F 116 16 108/70 97 06/25/17 22:08 97.4 F L 128 16 100/68 98 06/25/17 21:36 16 98 06/25/17 19:43 97.5 F L 129 16 120/90 97 Intake and Output 06/26/17 06/26/17 06/26/17 07:59 15:59 23:59 Intake Total 720 / 720 0 / 0 Output Total 750 / 750 0 / 0 600 / 600 Balance -750 / -750 720 / 720 -600 / -600 Intake: Oral 720 / 720 0 / 0 Output: Urine 750 / 750 0 / 0 600 / 600 Other: Meal Lunch Percent of Meal Consumed 75% # Voids 1 # Bowel Movements 1 Weight 78.471 kg Blood Glucose* 52 140 194 Patient Weight 06/26/17 23:59 Weight 78.471 kg - Labs CBC & BMP: 06/26/17 04:04 06/26/17 04:04 Labs: Abnormal lab results WBC 12.2 K/mcL (4.3-11.1) H D 06/26/17 04:04 RBC 3.04 M/mcL (4.19-5.50) L 06/26/17 04:04 Hgb 9.0 g/dL (12.9-16.9) L 06/26/17 04:04 Hct 28.1 % (37.5-50.1) L 06/26/17 04:04 RDW 17.2 % (11.5-14.5) H 06/26/17 04:04 Neutrophils # 9.6 K/mcL (1.6-8.9) H 06/26/17 04:04 PT 35.1 Seconds (9.4-12.1) H 06/26/17 04:04 Glucose 56 mg/dL (70-99) L 06/26/17 04:04 POC Glucose 194 (58-89) H 06/26/17 16:18 Calcium 8.4 mg/dL (8.6-10.8) L 06/26/17 04:04 B-Natriuretic Peptide 1111 pg/mL (0-100) H 06/25/17 01:11 Beta-Hydroxybutyric Acd 0.42 mmol/L (0.02-0.27) H 06/25/17 01:11 Consult Discharge Plan - Plan [facility]errals: [facility] [Primary Care Provider] - Laina Smith MD [Partnered Physician] - 07/08/17 1:00 pm
[2017-06-26] MEDS: Insulin DETEMIR 100 UNIT/ML X5UNITS SQ SCH (21:21)
[2017-06-26] MEDS: *HR* HYDROcodone/Acet 5/325 mg TABLET PO PRN (21:21)
[2017-06-27 04:13] LABS: Basophils # 0.1 K/mcL (0.0-0.2); Basophils % 0.7 %; Eosinophils # 0.2 K/mcL (0.0-0.6); Eosinophils % 2.4 %; Hematocrit 27.9 % (37.5-50.1); Hemoglobin 8.9 g/dL (12.9-16.9); Immature Granulocytes % 5.2 % (0-4); Lymphocytes # 1.3 K/mcL (0.6-4.6); Lymphocytes % 15.4 %; Mean Corpuscular HGB Conc 31.9 g/dL (31.6-35.5); Mean Corpuscular Hemoglobin 29.4 pg (28.0-33.3); Mean Corpuscular Volume 92.1 fL (83.0-100.0); Mean Platelet Volume 10.5 fL (9.4-12.4); Monocytes # 0.7 K/mcL (0.0-1.3); Monocytes % 8.5 %; Neutrophils # 5.9 K/mcL (1.6-8.9); Nucleated Red Blood Cells 0.2 /100 WBC (0); Platelet Count 260 K/mcL (140-400); Red Blood Count 3.03 M/mcL (4.19-5.50); Red Cell Distribution Width 17.5 % (11.5-14.5); Segmented Neutrophils % 67.8 %
[2017-06-27 04:28] LABS: BUN/Creatinine Ratio 23 (6-26); Blood Urea Nitrogen 21 mg/dL (8-26); Calcium 8.6 mg/dL (8.6-10.8); Carbon Dioxide 26 mEq/L (19-29); Chloride 109 mEq/L (98-109); Glucose 88 mg/dL (70-99); Osmolality,Calculated 294 (280-300); Potassium 3.7 mEq/L (3.5-4.5); Sodium 141 mEq/L (136-145); eGFR For African Americans > 60 (> 60); eGFR For Non-African Americans > 60 (> 60)
[2017-06-27 04:54] LABS: Anisocytosis 1+ (Not Present); Platelet Estimate Normal (Normal)
[2017-06-27 04:55] LABS: Macrocytosis Present (Not Present); Microcytosis Present (Not Present)
[2017-06-27] MEDS ORDERED: Cefepime HCl 2,000 MG in Water for inj. (sterile) 10 ML IVP SCH (06:00)
[2017-06-27 06:55] LABS: INR 2.5; Prothrombin Time 27.3 Seconds (9.4-12.1)
--- NOTE | 2017-06-27 07:25 | Orthopedics Progress Note ---
Date of Encounter: 06/27/17 Time of Encounter: 07:24 Subjective Principal diagnosis: left hip wound Interval history: Patient seen this morning overall in good spirits. Wound evaluated shows superficial gapping the entire length. No significant erythema and minimal drainage. Patient is allowed to shower soap water will begin dressing changes as per wound care nurse. Patient will continue with his brace he will follow- up after discharge will continue on IV antibiotics and monitor his progress. Objective Vital signs: Vital Signs Temp Pulse Resp BP Pulse Ox 06/27/17 04:13 97.2 F L 61 14 147/66 97 06/26/17 23:15 97.7 F 64 14 141/71 98 06/26/17 19:10 97.7 F 64 14 147/66 98 06/26/17 14:45 97.7 F 66 15 135/69 96 06/26/17 11:19 97.5 F L 65 17 137/67 95 06/26/17 09:33 95 06/26/17 08:00 18 99 06/26/17 07:51 97.4 F L 82 18 133/75 98 Intake and Output 06/26/17 06/26/17 06/27/17 15:59 23:59 07:59 Intake Total 720 / 720 120 / 120 0 / 0 Output Total 0 / 0 1200 / 1200 1200 / 1200 Balance 720 / 720 -1080 / -1080 -1200 / -1200 Intake: Oral 720 / 720 120 / 120 0 / 0 Output: Urine 0 / 0 1200 / 1200 1200 / 1200 Other: Meal Lunch Percent of Meal Consumed 75% # Voids 1 1 # Bowel Movements 1 Weight 78.426 kg Blood Glucose* 140 155 Patient Weight 06/27/17 23:59 Weight 78.426 kg - Labs CBC & BMP: 06/27/17 02:44 06/27/17 02:44 Labs: Abnormal lab results RBC 3.03 M/mcL (4.19-5.50) L 06/27/17 02:44 Hgb 8.9 g/dL (12.9-16.9) L 06/27/17 02:44 Hct 27.9 % (37.5-50.1) L 06/27/17 02:44 RDW 17.5 % (11.5-14.5) H 06/27/17 02:44 Immature Gran % 5.2 % (0-4) H 06/27/17 02:44 Nucleated RBCs/100 WBC 0.2 /100 WBC (0) H 06/27/17 02:44 Anisocytosis 1+ (Not Present) A 06/27/17 02:44 Microcytosis Present (Not Present) A 06/27/17 02:44 Macrocytosis Present (Not Present) A 06/27/17 02:44 PT 27.3 Seconds (9.4-12.1) H 06/27/17 02:44 POC Glucose 155 (58-89) H 06/26/17 20:45 B-Natriuretic Peptide 1111 pg/mL (0-100) H 06/25/17 01:11 Beta-Hydroxybutyric Acd 0.42 mmol/L (0.02-0.27) H 06/25/17 01:11 Consult Discharge Plan - Plan [facility]errals: [facility] [Primary Care Provider] - Laina Smith MD [Partnered Physician] - 07/08/17 1:00 pm
[2017-06-27] MEDS: Insulin LISPRO 300 UNITS/3 ML VIAL SQ SCH ×4 (07:30→22:37)
[2017-06-27] MEDS: Tiotropium 18 MCG inhalation IH SCH (08:35)
[2017-06-27] MEDS: Furosemide 20 MG TABLET PO SCH (10:10)
[2017-06-27] MEDS: Cholecalciferol (D-3) 1,000 UNIT TABLET PO SCH (10:11)
[2017-06-27] MEDS: Pregabalin 75 MG CAPSULE PO SCH ×2 (10:11→22:36)
[2017-06-27] MEDS: Levofloxacin 750 MG/150 ML 750 MG/150 ML BAG IVPB SCH (10:13)
[2017-06-27] MEDS: *HR* HYDROcodone/Acet 5/325 mg TABLET PO PRN ×3 (10:20→22:40)
[2017-06-27] MEDS ORDERED: *HR* Warfarin 2 MG TABLET PO ONE (18:00)
[2017-06-27] MEDS: Insulin DETEMIR 100 UNIT/ML X5UNITS SQ SCH (22:40)
[2017-06-27] MEDS: Latanoprost 2.5 ML BOTTLE BOTH EYES SCH (22:41)
--- NOTE | 2017-06-28 00:13 | Internal Med Progress Note ---
Date of Encounter: 06/27/17 Time of Encounter: 15:32 - Assessment and plan (1) Atrial fibrillation with slow ventricular response Current Visit: No Status: Chronic Assessment and plan: Resolved. continue new Lopressor twice a day and warfarin. (2) DANIEL (acute kidney injury) Current Visit: Yes Status: Acute Assessment and plan: Resolved (3) CAD (coronary artery disease) Current Visit: Yes Status: Chronic Qualifiers: Coronary Disease-Associated Artery/Lesion type: [place] artery [place] vs. 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 - Constitutional Vitals: Temp Pulse Resp BP Pulse Ox 97.4 F L 63 14 153/73 96 06/27/17 19:10 06/27/17 19:10 06/27/17 19:10 06/27/17 19:10 06/27/17 19:10 General appearance: Present: A&O X 3, pleasant, no acute distress, answers questions appropriately Exam: - Head Head exam: Present: atraumatic, normocephalic - Eye Eye exam: Present: PERRL, conjuntiva pink, sclera anicteric Pupils: Present: PERRL - Neck Neck exam general surgery: Present: supple, trachea midline. Absent: lymphadenopathy - Respiratory Respiratory exam: Present: CTAB. Absent: accessory muscle use, rales, rhonchi, wheezes - Cardiovascular Cardiovascular exam: Present: irregular rhythm, +S1, +S2. Absent: diastolic murmur, gallop, rubs, systolic murmur - GI/Abdominal GI/Abdominal exam: Present: normal bowel sounds, soft, no peritoneal signs. Absent: distended, tenderness - Extremities Exam Extremities exam: Present: warm, radial pulses palpable and symmetrical. Absent : calf tenderness, cyanotic, pedal edema Additional comments: R hip wound C/D/I, no surrounding erythema, slight swelling around surrounding skin - Neurological Exam Neurological exam: Present: alert, CN II-XII intact, oriented X3, no focal deficits. Absent: pronater drift, facial droop, speech deficit - Skin Skin exam: Present: dry, intact Internal Medicine: Result - Labs CBC & Chem 7: 06/27/17 02:44 06/27/17 02:44 Labs: Short CBC 06/27/17 Range/Units 02:44 WBC 8.7 (4.3-11.1) K/mcL Hgb 8.9 L (12.9-16.9) g/dL Hct 27.9 L (37.5-50.1) % Plt Count 260 (140-400) K/mcL Neutrophils # 5.9 (1.6-8.9) K/mcL BMP 06/27/17 02:44 Sodium 141 Potassium 3.7 Chloride 109 Carbon Dioxide 26 BUN 21 Creatinine 0.91 Glucose 88 Calcium 8.6 - ABG Interpretation ABG results: PT/INR, D-dimer PT 27.3 Seconds (9.4-12.1) H 06/27/17 02:44 Consult Discharge Plan - Plan [facility]errals: [facility] [Primary Care Provider] - Laina Smith MD [Partnered Physician] - 07/08/17 1:00 pm
[2017-06-28 05:22] LABS: Prothrombin Time 21.9 Seconds (9.4-12.1)
[2017-06-28] MEDS: Tiotropium 18 MCG inhalation IH SCH (07:58)
--- NOTE | 2017-06-28 08:46 | Internal Med Progress Note ---
Date of Encounter: 06/28/17 Time of Encounter: 08:46 - Assessment and plan (1) Atrial fibrillation with slow ventricular response Current Visit: No Status: Chronic Assessment and plan: Resolved. continue new Lopressor twice a day and warfarin. (2) DANIEL (acute kidney injury) Current Visit: Yes Status: Acute Assessment and plan: Resolved (3) Acute exacerbation of chronic obstructive airways disease Current Visit: Yes Status: Acute (4) CAD (coronary artery disease) Current Visit: Yes Status: Chronic Assessment and plan: Chronic, stable, continue ASA/Plavix/Lipitor BB as tolerated no chest pain at this time Qualifiers: Coronary Disease-Associated Artery/Lesion type: [place] artery [place] vs. transplanted heart: [place] heart Associated angina: without angina Qualified Code(s): I25.10 - Atherosclerotic heart disease of [place] coronary artery without angina pectoris - Subjective Interval history: No acute events. - Constitutional Vitals: Temp Pulse Resp BP Pulse Ox 97.3 F L 63 18 143/77 96 06/28/17 07:20 06/28/17 07:20 06/28/17 07:58 06/28/17 07:20 06/28/17 07:58 General appearance: Present: A&O X 3, pleasant, no acute distress, answers questions appropriately Exam: Gen: NAD CVS: RRR Lungs: CTAB Ext: no edema Internal Medicine: Result - Labs CBC & Chem 7: 06/27/17 02:44 06/27/17 02:44 - ABG Interpretation ABG results: PT/INR, D-dimer PT 21.9 Seconds (9.4-12.1) H 06/28/17 04:31 Consult Discharge Plan - Plan Referrals: [facility],PCP [Primary Care Provider] - Laina Smith MD [Partnered Physician] - 07/08/17 1:00 pm
[2017-06-28] MEDS: Insulin LISPRO 300 UNITS/3 ML VIAL SQ SCH ×4 (09:02→20:53)
[2017-06-28] MEDS: Cholecalciferol (D-3) 1,000 UNIT TABLET PO SCH (10:18)
[2017-06-28] MEDS: Pregabalin 75 MG CAPSULE PO SCH ×2 (10:18→20:41)
[2017-06-28] MEDS: Furosemide 20 MG TABLET PO SCH (10:18)
[2017-06-28] MEDS: Levofloxacin 750 MG/150 ML 750 MG/150 ML BAG IVPB SCH (10:25)
[2017-06-28] MEDS ORDERED: *HR* Warfarin 3 MG TABLET PO ONE (18:00)
[2017-06-28] MEDS: Latanoprost 2.5 ML BOTTLE BOTH EYES SCH (20:44)
[2017-06-28] MEDS: Insulin DETEMIR 100 UNIT/ML X5UNITS SQ SCH (20:55)
[2017-06-28] MEDS: *HR* HYDROcodone/Acet 5/325 mg TABLET PO PRN (22:45)
[2017-06-29 03:45] LABS: Hematocrit 28.8 % (37.5-50.1); Hemoglobin 9.4 g/dL (12.9-16.9); Mean Corpuscular HGB Conc 32.6 g/dL (31.6-35.5); Mean Corpuscular Hemoglobin 29.9 pg (28.0-33.3); Mean Corpuscular Volume 91.7 fL (83.0-100.0); Mean Platelet Volume 10.1 fL (9.4-12.4); Platelet Count 280 K/mcL (140-400); Red Blood Count 3.14 M/mcL (4.19-5.50); Red Cell Distribution Width 17.5 % (11.5-14.5)
[2017-06-29 03:56] LABS: BUN/Creatinine Ratio 17 (6-26); Blood Urea Nitrogen 15 mg/dL (8-26); Calcium 8.8 mg/dL (8.6-10.8); Carbon Dioxide 28 mEq/L (19-29); Chloride 107 mEq/L (98-109); Glucose 130 mg/dL (70-99); INR 1.8; Osmolality,Calculated 295 (280-300); Potassium 3.7 mEq/L (3.5-4.5); Prothrombin Time 19.7 Seconds (9.4-12.1); Sodium 141 mEq/L (136-145); eGFR For African Americans > 60 (> 60); eGFR For Non-African Americans > 60 (> 60)
[2017-06-29 04:42] LABS: Eosinophils # 0.4 K/mcL (0.0-0.6); Lymphocytes # 1.7 K/mcL (0.6-4.6); Monocytes # 0.6 K/mcL (0.0-1.3); Neutrophils # 6.8 K/mcL (1.6-8.9); Platelet Estimate Normal (Normal)
[2017-06-29 04:43] LABS: Polychromasia 1+ (Not Present); Schistocytes 1+ (Not Present)
[2017-06-29 04:44] LABS: Anisocytosis 1+ (Not Present)
[2017-06-29] MEDS: Tiotropium 18 MCG inhalation IH SCH (07:58)
[2017-06-29] MEDS: Levofloxacin 750 MG/150 ML 750 MG/150 ML BAG IVPB SCH (08:07)
[2017-06-29] MEDS: Cholecalciferol (D-3) 1,000 UNIT TABLET PO SCH (08:17)
[2017-06-29] MEDS: Insulin LISPRO 300 UNITS/3 ML VIAL SQ SCH (08:17)
[2017-06-29] MEDS: Furosemide 20 MG TABLET PO SCH (08:18)
[2017-06-29] MEDS: Pregabalin 75 MG CAPSULE PO SCH (08:19)
--- NOTE | 2017-06-29 10:19 | Infectious Disease Progress No ---
Date of Encounter: 06/29/17 Time of Encounter: 10:15 - Assessment and Plan (1) Superficial incisional surgical site infection Current Visit: Yes Status: Acute Location: Left hip. Status post left hip hardware removal 06/01/17 and revision of femoral head length of total hip 06/04/17, both procedures by Dr. Cannon. Failed oral antibiotics outpatient. Intra-operative cultures from 06/01/17 and 06/04/17 were negative. The patient developed some superficial erythema and wound drainage after his second surgery despite oral antibiotic prophylaxis post-op. Wound culture obtained 06/21/17 grew out melgoza-sensitive Pseudomonas aeruginosa. Culture finalized after patient was discharged and no on was notified that the culture had come back positive. Given the negative cultures prior to discharge during his last hospitalization and the patient being a poor surgical candidate if the infection got the hardware, we opted to treat aggressively with broad-spectrum IV antibiotics and base duration of treatment on how the patient did clinically. Since we now have a causative organism, we can de-escalate antibiotics to minimize risk of additional kidney injury and development of resistance. Continue Levaquin 750mg IV daily. Duration of treatment depends on the clinical picture, but likely 2-4 weeks of IV antibiotics followed by orals. We will follow the patient's inflammatory markers and how he is doing clinically before we determine exact duration. Monitor renal function and for drug toxicity and dose-adjust antibiotics. Will need weekly CBC, BUN/Cr, ESR, CRP, and Vanc trough every Thursday for the duration of treatment. Will need weekly midline care per protocol. Follow up with ID 07/08/17 at 1300. Continue wound care and activity restrictions per the ortho team. Qualifiers: Encounter type: subsequent encounter Qualified Code(s): T81.4XXD - Infection following a procedure, subsequent encounter (2) DANIEL (acute kidney injury) Current Visit: Yes Status: Acute Etiology unclear, but likely secondary to Vancomycin use. Vanc has been discontinued. DANIEL has resolved. Continue to trend. Dose-adjust antibiotics. Avoid nephrotoxins as able. (3) Atrial fibrillation with RVR Current Visit: Yes Status: Acute Etiology unclear. Resolved. Further management per the primary team. (4) Acute exacerbation of chronic obstructive airways disease Current Visit: Yes Status: Acute (5) Anemia Current Visit: Yes Status: Chronic Stable. No acute bleeding noted on exam. Further workup and management per the primary team. Qualifiers: Anemia type: unspecified type Qualified Code(s): D64.9 - Anemia, unspecified (6) Diastolic CHF, chronic Current Visit: No Status: Chronic (7) Status post total hip replacement, left Current Visit: Yes Status: Acute - Subjective Interval history: Patient seen and examined. Weekend notes reviewed. No acute events noted. Patient resting quietly in bed with his at the bedside. Complains of left hip pain with movement 5/10. Denies fevers, chills, or rigors. Denies chest pain , shortness of breath, or cough. Denies nausea, vomiting, or diarrhea. Denies abdominal pain or urinary complaints. Denies oral thrush or skin lesions. States his hip dressing was changed last night before he went to bed. Infect Dis PN-Objective Data - Labs CBC & Chem 7: 06/29/17 03:30 06/29/17 03:30 Labs: Laboratory Results - last 24 hr 06/28/17 06/28/17 06/28/17 07:25 11:10 17:18 WBC RBC Hgb Hct MCV MCH MCHC RDW Plt Count MPV Seg Neutrophils % Lymphocytes % Monocytes % Eosinophils % Neutrophils # Lymphocytes # Monocytes # Eosinophils # Platelet Estimate Polychromasia Anisocytosis Schistocytes PT INR Sodium Potassium Chloride Carbon Dioxide BUN Creatinine Est GFR ( Amer) Est GFR (Non-Af Amer) BUN/Creatinine Ratio Glucose POC Glucose 97 H 228 H 82 Calculated Osmolality Calcium 06/28/17 06/29/17 06/29/17 20:52 03:30 03:30 WBC 9.5 RBC 3.14 L Hgb 9.4 L Hct 28.8 L MCV 91.7 MCH 29.9 MCHC 32.6 RDW 17.5 H Plt Count 280 MPV 10.1 Seg Neutrophils % 72.0 Lymphocytes % 18.0 Monocytes % 6.0 Eosinophils % 4.0 Neutrophils # 6.8 Lymphocytes # 1.7 Monocytes # 0.6 Eosinophils # 0.4 Platelet Estimate Normal Polychromasia 1+ A Anisocytosis 1+ A Schistocytes 1+ A PT INR Sodium 141 Potassium 3.7 Chloride 107 Carbon Dioxide 28 BUN 15 Creatinine 0.87 Est GFR ( Amer) > 60 Est GFR (Non-Af Amer) > 60 BUN/Creatinine Ratio 17 Glucose 130 H POC Glucose 184 H Calculated Osmolality 295 Calcium 8.8 06/29/17 06/29/17 03:30 06:54 WBC RBC Hgb Hct MCV MCH MCHC RDW Plt Count MPV Seg Neutrophils % Lymphocytes % Monocytes % Eosinophils % Neutrophils # Lymphocytes # Monocytes # Eosinophils # Platelet Estimate Polychromasia Anisocytosis Schistocytes PT 19.7 H INR 1.8 Sodium Potassium Chloride Carbon Dioxide BUN Creatinine Est GFR ( Amer) Est GFR (Non-Af Amer) BUN/Creatinine Ratio Glucose POC Glucose 119 H Calculated Osmolality Calcium Exam - Constitutional Vitals: Temp Pulse Resp BP Pulse Ox 97.4 F L 65 14 157/82 94 06/29/17 07:01 06/29/17 07:01 06/29/17 07:58 06/29/17 07:01 06/29/17 07:58 General appearance: average body habitus, cooperative, no acute distress - Head Head exam: Present: atraumatic, normal inspection, normocephalic - Eye Eye exam: Present: EOMI, normal appearance, PERRL Pupils: Present: normal accommodation - ENT ENT exam: Present: mucous membranes moist - Neck Neck exam: Present: normal inspection - Respiratory Respiratory exam: Present: CTAB. Absent: rales, respiratory distress, rhonchi, wheezes - Cardiovascular Cardiovascular exam: Present: RRR, +S1, +S2 - GI/Abdominal GI/Abdominal exam: Present: normal bowel sounds, soft. Absent: distended, tenderness - Extremities Exam Extremities exam: Present: normal inspection. Absent: joint swelling, pedal edema, tenderness Additional comments: Left hip incision with several small areas of wound edge weakness. No active drainage. Old bloody drainage noted on the dressing. No tenderness, warmth, or erythema noted. - Neurological Exam Neurological exam: Present: alert, oriented X3, no focal deficits - Psychiatric Psychiatric exam: Present: normal affect, normal mood - Skin Skin exam: Present: dry, intact, normal color, warm - Additional findings Additional findings: Midline noted to the LUE with transparent dressing C/D/I. Consult Discharge Plan - Plan [facility]errals: [facility]Primary Care Provider[facility] - Laina Smith MD [Partnered Physician] - 07/08/17 1:00 pm
--- NOTE | 2017-06-29 10:24 | Discharge Summary ---
Date of Encounter: 06/29/17 Time of Encounter: 10:24 - Discharge Diagnosis (1) DANIEL (acute kidney injury) Priority: Primary Status: Resolved (2) Atrial fibrillation with RVR Priority: Secondary Status: Resolved (3) Status post total hip replacement, left Priority: Secondary Status: Acute (4) Superficial incisional surgical site infection Priority: Secondary Status: Acute Qualifiers: Encounter type: subsequent encounter Qualified Code(s): T81.4XXD - Infection following a procedure, subsequent encounter (5) CAD (coronary artery disease) Priority: Secondary Status: Chronic Qualifiers: Coronary Disease-Associated Artery/Lesion type: [place] artery [place] vs. transplanted heart: [place] heart Associated angina: without angina Qualified Code(s): I25.10 - Atherosclerotic heart disease of [place] coronary artery without angina pectoris - Discharge Medications Prescriptions: Furosemide [Lasix] 20 mg PO DAILY #30 tablet Levofloxacin 750 MG/150 ML [Levaquin Premix 750mg/150 mL] 750 mg IVPB DAILY #30 bag Metoprolol [Lopressor] 25 mg PO BID #60 tablet Home Medications: GlipiZIDE [Glucotrol] 7.5 mg PO BID 04/13/15 [History] Atorvastatin [Lipitor] 10 mg PO HS 10/16/15 [History] Albuterol Sulfate [Albuterol Inhaler] 2 puff IH QID PRN 06/01/17 [History] Cholecalciferol (Vitamin D3) [Vitamin D3] 2,000 unit PO DAILY 06/01/17 [History] Sertraline [Zoloft] 100 mg PO QPM 06/01/17 [History] Warfarin [Coumadin] 2 mg PO TH 06/01/17 [History] Warfarin [Coumadin] 4 mg PO SUMOTUWEFRSA 06/01/17 [History] amLODIPine [Norvasc] 5 mg PO DAILY 06/01/17 [History] Polyethylene Glycol 3350 [MiraLAX] 17 gm PO DAILY PRN 06/03/17 [History] Tiotropium [Spiriva] 18 mcg IH 0700 06/03/17 [History] Travoprost [Travatan Z] 1 drop BOTH EYES HS 06/03/17 [History] traZODone [TraZODone] 50 mg PO HS PRN 06/03/17 [History] Ipratropium/Albuterol Neb [Duoneb] 3 ml IH QID PRN #1 06/06/17 [Rx] Clopidogrel [Plavix] 75 mg PO DAILY 06/19/17 [History] Ferrous Sulfate [Iron] 325 mg PO BID 06/19/17 [History] Levothyroxine [Synthroid] 50 mcg PO 0630 06/19/17 [History] MOM Conc [MILK OF MAGNJACKIE conc] 30 ml PO HS PRN 06/19/17 [History] Pregabalin [Lyrica] 150 mg PO TID 06/19/17 [History] Sennosides/Docusate Sodium [Senna-Docusate Sodium Tablet] 2 tab PO BID PRN 06/19 [History] Saccharomyces Boulardii [Florastor] 250 mg PO BID #60 capsule 06/22/17 [Rx] Losartan Potassium [Cozaar] 100 mg PO DAILY 06/24/17 [History] Metformin HCl [Glucophage] 1,000 mg PO BID 06/24/17 [History] OxyCODONE Immed Rel [Roxicodone 5 MG] 5 - 10 mg PO Q4H PRN 06/24/17 [History] Oxycodone HCl 20 mg PO Q12H 06/24/17 [History] Potassium Chloride [Klor-Con Sprinkle] 10 meq PO DAILY 06/24/17 [History] Furosemide [Lasix] 20 mg PO DAILY #30 tablet 06/29/17 [Rx] Levofloxacin 750 MG/150 ML [Levaquin Premix 750mg/150 mL] 750 mg IVPB DAILY #30 bag 06/29/17 [Rx] Metoprolol [Lopressor] 25 mg PO BID #60 tablet 06/29/17 [Rx] Warfarin perPT [Coumadin perPT] 1 each PO DAILY@1800 PRN each 06/29/17 [Rx] Allergies/Adverse Reactions: 3 Allergy/AdvReac Type Severity Reaction Status Date / Time azithromycin Allergy See Verified 06/19/17 09:01 Comments ceftriaxone Allergy See Verified 06/19/17 09:01 Comments morphine Allergy See Verified 06/19/17 09:01 Comments sulfamethoxazole AdvReac See Verified 06/19/17 09:01 [From Bactrim] Comments trimethoprim [From Bactrim] AdvReac See Verified 06/19/17 09:01 Comments Date of admission: 06/24/17 17:35 [facility] care physician: [facility] Consults: 06/26/17 08:46 Consult to Infectious Diseases [CONS] Routine Consulting Provider: Emre Lambert Reason for Consult: Duration of therapy Call Completed: Yes 06/26/17 09:15 Consult to Wound Care [CONS] Routine Reason for Consult: Left hip surgical wound infection Call Completed: No 06/26/17 12:07 Consult to Invasive Line Access Team [CONS] Routine Reason for Consult: limited vascular access Line Type: EPIV Discharging clinician: Lloyd Wu - Patient Status [facility] Condition: Fair Functional capacity at discharge: uses cane/walker (With assist) Overall status at discharge: patient is progressing back to baseline - Ambulatory Orders Ambulatory Orders: Basic Metabolic Panel [CHEM] Time Frame: 5 Weeks, Facility: [facility], Location: Lab C-Reactive Protein [CHEM] Time Frame: 5 Weeks, Facility: [facility], Location: Lab Complete Blood Count [HEME] Time Frame: 5 Weeks, Facility: [facility], Location: Lab Erythrocyte Sedimentation Rate [HEME] Time Frame: 5 Weeks, Facility: [facility], Location: Lab Prothrombin Time INR [COAG] Time Frame: 5 Weeks, Facility: [facility], Location: Lab Vancomycin,Trough [CHEM] Time Frame: 5 Weeks, Facility: [facility], Location: Lab - Discharge Instructions Follow Up With: [place],PCP [Primary Care Provider] - Laina Smith MD [Partnered Physician] - 07/08/17 1:00 pm Forms: ED Satisfaction Letter - Diet and Activity Activity: as per physical therapy Diet: advance to your usual diet Hospital course: Mr. Huddleston is a 72 year old male with history of diabetes, hypertension, CAD S/P CABG, A. fib on Coumadin, CHF, S/P hip replacement, who had revision of Left femoral head twice this month on 06/01/17 and 06/04/17, recently started noticing erythema and discharge around the surgical incision site for which he did see Ortho. He was just got discharged from hospital 2 days prior to admission for left total hip arthroplasty dislocation for which pt had closed reduction done on 06/18/17. Pt was seen by ID for his superficial surgical site infection and d/c him back to SNF with IV Vancomycin and Cefepime. Now pt stated that last 2 days he was so sleepy so did not take much PO intake, this [facility] at [facility] he happened to have low systolic BP in 70's. Now his systolic BP in 100's, he denied any CP / SOB. He was given gentle IV fluid since we does have severe diastolic heart failure and Lasix was held. He was administered lopressor IV for afib with RVR. Strict I/O Will obtain renal USS when stable Continue to hold Vanco/Zosyn/Losartan/Metformin/lasix Avoid nephrotoxins Monitor resp status, patient is full code (3) Superficial incisional surgical site infection Current Visit: Yes Status: Acute Assessment and plan: Wound culture noed Continue cefepime (10) Hypothermia Current Visit: Yes Status: Acute Assessment and plan: T recorded as 97.2-97.4 Obtain rectal temp Frances díaz 72 M , resident of [place] for rehab Admitted and being managed for DANIEL possibly secondary to ATN from medications- vanco/Lasix/Zosyn/Hypotension He is seen and evaluated at bedside HRis uncontrolled, BP still borderline low Denies new complains Wound culture from prior admission reviewed-Pseudomonas pansensitive Ortho eval pending at time of review - Time Spent with Patient Total time spent providing and/or coordinating discharge services: - Constitutional Vitals: Temp Pulse Resp BP Pulse Ox 97.4 F L 65 14 157/82 94 06/29/17 07:01 06/29/17 07:01 06/29/17 07:58 06/29/17 07:01 06/29/17 07:58 General appearance: Present: A&O X 3, pleasant, no acute distress, answers questions appropriately Exam: - Head Head exam: Present: atraumatic, normal inspection, normocephalic - Eye Eye exam: Present: EOMI, normal appearance, PERRL Pupils: Present: normal accommodation - ENT ENT exam: Present: mucous membranes moist - Neck Neck exam: Present: normal inspection - Respiratory Respiratory exam: Present: CTAB. Absent: rales, respiratory distress, rhonchi, wheezes - Cardiovascular Cardiovascular exam: Present: RRR, +S1, +S2 - GI/Abdominal GI/Abdominal exam: Present: normal bowel sounds, soft. Absent: distended, tenderness - Extremities Exam Extremities exam: Present: joint swelling (Mild, left hip), pedal edema (1+ LLE) . Absent: tenderness Additional comments: Left lateral hip incision with moderate amount of light pink drainage noted. No surrounding erythema, warmth, or tenderness noted. - Neurological Exam Neurological exam: Present: alert, oriented X3, no focal deficits - Psychiatric Psychiatric exam: Present: normal affect, normal mood - Skin Skin exam: Present: dry, intact, normal color, warm
[2017-06-29 11:14] VITALS: BP 144/87
--- NOTE | 2017-06-29 11:18 | Physician Discharge Referral ---
ExtendedCare Referral Info Transfer To: [place] Provider in Charge after Transfer: PCP Institutional Level of Care: Skilled - Diagnosis (1) DANIEL (acute kidney injury) Priority: Primary Status: Resolved (2) Atrial fibrillation with RVR Priority: Secondary Status: Resolved (3) Status post total hip replacement, left Priority: Secondary Status: Acute (4) Superficial incisional surgical site infection Priority: Secondary Status: Acute (5) CAD (coronary artery disease) Priority: Secondary Status: Chronic Prognosis: Fair - Transfer Medications Prescriptions: Furosemide [Lasix] 20 mg PO DAILY #30 tablet Levofloxacin 750 MG/150 ML [Levaquin Premix 750mg/150 mL] 750 mg IVPB DAILY #30 bag Metoprolol [Lopressor] 25 mg PO BID #60 tablet Home Medications: GlipiZIDE [Glucotrol] 7.5 mg PO BID 04/13/15 [History] Atorvastatin [Lipitor] 10 mg PO HS 10/16/15 [History] Albuterol Sulfate [Albuterol Inhaler] 2 puff IH QID PRN 06/01/17 [History] Cholecalciferol (Vitamin D3) [Vitamin D3] 2,000 unit PO DAILY 06/01/17 [History] Sertraline [Zoloft] 100 mg PO QPM 06/01/17 [History] Warfarin [Coumadin] 2 mg PO TH 06/01/17 [History] Warfarin [Coumadin] 4 mg PO SUMOTUWEFRSA 06/01/17 [History] amLODIPine [Norvasc] 5 mg PO DAILY 06/01/17 [History] Polyethylene Glycol 3350 [MiraLAX] 17 gm PO DAILY PRN 06/03/17 [History] Tiotropium [Spiriva] 18 mcg IH 0700 06/03/17 [History] Travoprost [Travatan Z] 1 drop BOTH EYES HS 06/03/17 [History] traZODone [TraZODone] 50 mg PO HS PRN 06/03/17 [History] Ipratropium/Albuterol Neb [Duoneb] 3 ml IH QID PRN #1 06/06/17 [Rx] Clopidogrel [Plavix] 75 mg PO DAILY 06/19/17 [History] Ferrous Sulfate [Iron] 325 mg PO BID 06/19/17 [History] Levothyroxine [Synthroid] 50 mcg PO 0630 06/19/17 [History] MOM Conc [MILK OF MAGNESIA conc] 30 ml PO HS PRN 06/19/17 [History] Pregabalin [Lyrica] 150 mg PO TID 06/19/17 [History] Sennosides/Docusate Sodium [Senna-Docusate Sodium Tablet] 2 tab PO BID PRN 06/19 [History] Saccharomyces Boulardii [Florastor] 250 mg PO BID #60 capsule 06/22/17 [Rx] Losartan Potassium [Cozaar] 100 mg PO DAILY 06/24/17 [History] Metformin HCl [Glucophage] 1,000 mg PO BID 06/24/17 [History] OxyCODONE Immed Rel [Roxicodone 5 MG] 5 - 10 mg PO Q4H PRN 06/24/17 [History] Oxycodone HCl 20 mg PO Q12H 06/24/17 [History] Potassium Chloride [Klor-Con Sprinkle] 10 meq PO DAILY 06/24/17 [History] Furosemide [Lasix] 20 mg PO DAILY #30 tablet 06/29/17 [Rx] Levofloxacin 750 MG/150 ML [Levaquin Premix 750mg/150 mL] 750 mg IVPB DAILY #30 bag 06/29/17 [Rx] Metoprolol [Lopressor] 25 mg PO BID #60 tablet 06/29/17 [Rx] Warfarin perPT [Coumadin perPT] 1 each PO DAILY@1800 PRN each 06/29/17 [Rx] Allergies/Adverse Reactions: 3 Allergy/AdvReac Type Severity Reaction Status Date / Time azithromycin Allergy See Verified 06/19/17 09:01 Comments ceftriaxone Allergy See Verified 06/19/17 09:01 Comments morphine Allergy See Verified 06/19/17 09:01 Comments sulfamethoxazole AdvReac See Verified 06/19/17 09:01 [From Bactrim] Comments trimethoprim [From Bactrim] AdvReac See Verified 06/19/17 09:01 Comments - Respiratory Orders Smoking Cessation: Smoking cessation has been advised. For more information, call the [place] Tobacco Quit Line at 9-579-NBFC-NOW. - Ancillary Orders May use pressure relief devices daily prn, May go on GEORGINA w/family/respon libertarian w /meds at nurse discretion PRN, May consult with Dentist, Ear Nose And Throat Specialist, Mortar Worker PRN - Rehabiliation Orders Rehab Potential: Fair Rehab Orders: Evaluation for Physical Therapy, Evaluation for Occupational Therapy - Treatments Skin tear care topically daily PRN per policy, May check for fecal impaction rectally daily PRN - Diet Orders Cardiac CERTIFICATION: I certify that the transfer of the above named patient to an Extended Care Facility is necessary for the continuing treatment of the diagnosis listed. The above information is true and accurate reflection of patient's current condition. Confidential - Redisclosure prohibited without a patient's written consent.
== END 2017-06-29 12:00 | DRG 919 ==
LOC: 3ANU 12:44 → EMEROO 12:44 → 3ANU 15:08 → SUATTDRO 17:35
PROVIDERS: ADMIT Student in an Organized Health Care Education/Training Program; ATTEND Internal Medicine

== ENCOUNTER 2017-07-02 16:42 | Inpatient (IN) ==
[2017-07-02] MEDS ORDERED: *HR* OxyCODONE Immed Rel 5 MG TABLET PO PRN ×2 (16:56→21:25)
[2017-07-02] MEDS ORDERED: Naloxone 0.4 MG/ML INJ IVP PRN (16:56)
[2017-07-02] MEDS ORDERED: *HR* HYDROmorphone (PF) 1 MG/ML SYRINGE IVP PRN (16:56)
[2017-07-02] MEDS ORDERED: Ondansetron 4 MG/2 ML VIAL IVP PRN (16:56)
[2017-07-02] MEDS ORDERED: Ringers Solution, Lactated 1,000 ML IVC SCH (17:45)
[2017-07-02 19:04] LABS: Basophils # 0.1 K/mcL (0.0-0.2); Basophils % 0.5 %; Eosinophils # 0.1 K/mcL (0.0-0.6); Eosinophils % 1.1 %; Hematocrit 34.3 % (37.5-50.1); Hemoglobin 10.8 g/dL (12.9-16.9); Immature Granulocytes % 3.4 % (0-4); Lymphocytes # 1.2 K/mcL (0.6-4.6); Lymphocytes % 9.4 %; Mean Corpuscular HGB Conc 31.5 g/dL (31.6-35.5); Mean Corpuscular Hemoglobin 29.8 pg (28.0-33.3); Mean Corpuscular Volume 94.8 fL (83.0-100.0); Monocytes % 7.4 %; Platelet Count 345 K/mcL (140-400); Red Blood Count 3.62 M/mcL (4.19-5.50); Segmented Neutrophils % 78.2 %
[2017-07-02 19:08] LABS: Prothrombin Time 21.4 Seconds (9.4-12.1)
[2017-07-02 19:10] LABS: Activated Partial Thrombo Time 36.9 Seconds (26.0-36.0)
[2017-07-02 19:15] LABS: Alanine Aminotransferase 39 Units/L (0-55); Albumin/Globulin Ratio 0.7 (1.1-2.2); Alkaline Phosphatase 109 Units/L (38-126); Aspartate Amino Transferase 49 Units/L (5-34); BUN/Creatinine Ratio 14 (6-26); Bilirubin,Total 0.8 mg/dL (0.2-1.2); Blood Urea Nitrogen 15 mg/dL (8-26); Calcium 9.7 mg/dL (8.6-10.8); Carbon Dioxide 28 mEq/L (19-29); Chloride 102 mEq/L (98-109); Globulin 4.2 g/dL (2.4-3.5); Glucose 48 mg/dL (70-99); Osmolality,Calculated 288 (280-300); Potassium 4.1 mEq/L (3.5-4.5); Sodium 140 mEq/L (136-145); Total Protein 7.2 g/dL (6.0-8.3); eGFR For African Americans > 60 (> 60); eGFR For Non-African Americans > 60 (> 60)
[2017-07-02 20:04] LABS: Bilirubin,Urine Negative (Negative); Blood,Urine Negative (Negative); Clarity,Urine Clear (Clear); Color,Urine Yellow (Yellow); Glucose,Urine (UA) Normal (Normal); Ketones,Urine Negative (Negative); Leukocyte Esterase,Urine Negative (Negative); Nitrite,Urine Negative (Negative); PH,Urine 6.5 pH Units (5.0-8.0); Protein,Urine Negative (Neg-Trace); Urobilinogen,Urine Normal (Normal)
[2017-07-02] MEDS ORDERED: traZODone 50 MG TABLET PO PRN (21:25)
[2017-07-02] MEDS ORDERED: Acetaminophen 325 MG TABLET PO PRN (21:29)
[2017-07-02] MEDS ORDERED: *HR* Phytonadione 5 MG TABLET PO ONE (21:32)
[2017-07-02] MEDS ORDERED: Dextrose Gel 15 GM PO PRN ×2 (21:33)
[2017-07-02] MEDS ORDERED: *HR* Dextrose 50 % in Water (Syg) 50 ML SYRINGE IVP PRN (21:33)
[2017-07-02] MEDS ORDERED: D5% in Water 1,000 ML IVC PRN (21:33)
--- NOTE | 2017-07-02 21:36 | Internal Med History&Physical ---
Date of Encounter: 07/02/17 Time of Encounter: 21:34 Assessment and Plan (1) Dislocation of internal left hip prosthesis, subsequent encounter Current visit: No Status: Acute Scheduled to have surgical procedure in the morning FFP given with vitamin K Ringers lactate Oxycodone and Dilaudid for pain, orthopedic surgery consulted Omeprazole for GI prophylaxes and Coumadin for DVT prophylaxis. The patient will be admitted as inpatient, expected to stay more than 2 midnights. Full code. Time spent on this admission 40 minutes (2) CAD (coronary artery disease) Current visit: No Status: Chronic Qualifiers: Coronary Disease-Associated Artery/Lesion type: crow artery [place] vs. transplanted heart: crow heart Associated angina: without angina Qualified Code(s): I25.10 - Atherosclerotic heart disease of crow coronary artery without angina pectoris (3) Diastolic CHF, chronic Current visit: No Status: Chronic Stable, no exacerbation (4) Septic joint Current visit: No Status: Acute Controlled on Levaquin, Pseudomonas infection Qualifiers: Septic arthritis location: hip Septic arthritis organism: due to other bacteria Laterality: left Qualified Code(s): M00.852 - Arthritis due to other bacteria, left hip (5) ADNIEL (acute kidney injury) Current visit: No Status: Resolved Resolved, likely secondary to the use of Zosyn and vancomycin during prior admission (6) Atrial fibrillation with RVR Current visit: No Status: Resolved No RVR for now Hold Coumadin for surgical procedure His FFP and small dose of vitamin K (7) Diabetes Current visit: No Status: Chronic Continue Ringer's lactate for now, continue switching to D5 due to hypoglycemia Use insulin sliding scale only Qualifiers: Diabetes mellitus type: type 2 Diabetes mellitus complication status: with hyperglycemia Diabetes mellitus senior care insulin use: without senior care use Qualified Code(s): E11.65 - Type 2 diabetes mellitus with hyperglycemia Internal Medicine - H&P: HPI Chief complaint: Dislocated femur, left hip pain Admitted From: Emergency Dept History of present illness: Mr. Huddleston is a 72 year old male with a past medical history of diabetes type 2 not insulin-dependent, recently discharged from the hospital on 06/24/2017 when he was treated for another revision of the left total hip replacement. The patient's wound apparently was infected with pansensitive pseudomonas, infectious diseases was consulted during the prior admission and was recommended remanded to continue Levaquin IV. He came back from the [place] rehabilitation facility as he started complaining of severe pain on the left hip , not able to move it. X-ray shows a left femur dislocation of the prosthetic head again. She takes Coumadin for A. fib and his INR is 2, white blood cell count is 12.8 glucose is 48. The patient was started on Ringers lactate. Denies any pain when not moving. During last admission he developed acute renal failure possibly due to vancomycin and Zosyn. His is scheduled to have a surgical procedure in the morning Past Med Surg Social Fam HX - Past Medical History Medical history: atrial fibrillation (On Coumadin), CHF (Diastolic), COPD (Not oxygen dependent), coronary artery disease (With history of CABG), CVA, DVT, diabetes (Not insulin-dependent), GERD, hypertension, myocardial infarction, syncope, other (Acute renal failure Ammann left hip infection with pansensitive pseudomonas, DVT, PTSD, neuropathy, hypothyroidism, depression) Psychiatric history: anxiety, PTSD - Past Surgical History Surgical History: appendectomy, carotid endarterectomy, coronary bypass (CABG), hip replacement, LE stent(s) (Femoral bypass), orthopedic, other, vascular surgery, pacemaker - Social History Smoking Status: Former smoker Smokeless Tobacco Status: No Alcohol use: none Drug use: none - Family History Father Living Status: Hx Family Cardiac Disorders: Yes Hx Family Cancer: Yes - Additional Family History Additional family history: Father with lupus and mother with hypertension and CAD Internal Medicine - H&P: Meds GlipiZIDE [Glucotrol] 7.5 mg PO BID 04/13/15 [History] Atorvastatin [Lipitor] 10 mg PO HS 10/16/15 [History] Albuterol Sulfate [Albuterol Inhaler] 2 puff IH QID PRN 06/01/17 [History] Cholecalciferol (Vitamin D3) [Vitamin D3] 2,000 unit PO DAILY 06/01/17 [History] Sertraline [Zoloft] 100 mg PO QPM 06/01/17 [History] Warfarin [Coumadin] 2 mg PO TH 06/01/17 [History] Warfarin [Coumadin] 4 mg PO SUMOTUWEFRSA 06/01/17 [History] amLODIPine [Norvasc] 5 mg PO DAILY 06/01/17 [History] Polyethylene Glycol 3350 [MiraLAX] 17 gm PO DAILY PRN 10/04/17 [History] Tiotropium [Spiriva] 18 mcg IH 0700 06/03/17 [History] Travoprost [Travatan Z] 1 drop BOTH EYES HS 06/03/17 [History] traZODone [TraZODone] 50 mg PO HS PRN 06/03/17 [History] Ipratropium/Albuterol Neb [Duoneb] 3 ml IH QID PRN #1 06/06/17 [Rx] Clopidogrel [Plavix] 75 mg PO DAILY 06/19/17 [History] Ferrous Sulfate [Iron] 325 mg PO BID 06/19/17 [History] Levothyroxine [Synthroid] 50 mcg PO 0630 06/19/17 [History] MOM Conc [MILK OF MAGNESIA conc] 30 ml PO HS PRN 06/19/17 [History] Pregabalin [Lyrica] 150 mg PO TID 06/19/17 [History] Sennosides/Docusate Sodium [Senna-Docusate Sodium Tablet] 2 tab PO BID PRN 06/19 [History] Saccharomyces Boulardii [Florastor] 250 mg PO BID #60 capsule 06/22/17 [Rx] Losartan Potassium [Cozaar] 100 mg PO DAILY 06/24/17 [History] Metformin HCl [Glucophage] 1,000 mg PO BID 06/24/17 [History] OxyCODONE Immed Rel [Roxicodone 5 MG] 5 - 10 mg PO Q4H PRN 06/24/17 [History] Oxycodone HCl 20 mg PO Q12H 06/24/17 [History] Potassium Chloride [Klor-Con Sprinkle] 10 meq PO DAILY 06/24/17 [History] Furosemide [Lasix] 20 mg PO DAILY #30 tablet 06/29/17 [Rx] Levofloxacin 750 MG/150 ML [Levaquin Premix 750mg/150 mL] 750 mg IVPB DAILY #30 bag 06/29/17 [Rx] Metoprolol [Lopressor] 25 mg PO BID #60 tablet 06/29/17 [Rx] Warfarin perPT [Coumadin perPT] 1 each PO DAILY@1800 PRN each 06/29/17 [Rx] 3 Allergy/AdvReac Type Severity Reaction Status Date / Time azithromycin Allergy See Verified 06/19/17 09:01 Comments ceftriaxone Allergy See Verified 06/19/17 09:01 Comments morphine Allergy See Verified 06/19/17 09:01 Comments sulfamethoxazole AdvReac See Verified 06/19/17 09:01 [From Bactrim] Comments trimethoprim [From Bactrim] AdvReac See Verified 06/19/17 09:01 Comments All Systems PM: A 10-system review of systems was performed and is negative for pertinent findings except as documented above in the HPI. Review of systems: No shortness of breath or chest pain. Other systems out of the 10 review were negative - Constitutional Vitals: Temp Pulse Resp BP Pulse Ox 97.9 F 71 18 118/69 94 07/02/17 19:45 07/02/17 19:45 07/02/17 19:45 07/02/17 19:45 07/02/17 19:45 General appearance: Present: A&O X 3 - Head Head exam: Present: atraumatic, normocephalic - Eye Eye exam: Present: PERRL, conjuntiva pink, sclera anicteric Pupils: Present: PERRL - Neck Neck exam general surgery: Present: supple, trachea midline. Absent: lymphadenopathy - Respiratory Respiratory exam: Present: decreased breath sounds, CTAB. Absent: accessory muscle use, rales, rhonchi, wheezes - Cardiovascular Cardiovascular exam: Present: RRR, +S1, +S2. Absent: diastolic murmur, gallop, rubs, systolic murmur - GI/Abdominal GI/Abdominal exam: Present: normal bowel sounds, soft, no peritoneal signs. Absent: distended, tenderness - Extremities Exam Extremities exam: Present: warm, radial pulses palpable and symmetrical. Absent : calf tenderness, cyanotic, pedal edema Additional comments: Left hip wound appears very swollen, slightly deformed, +1 pitting edema in both lower extremities, no erythema - Neurological Exam Neurological exam: Present: CN II-XII intact, oriented X3, no focal deficits. Absent: pronater drift, facial droop, speech deficit - Skin Skin exam: Present: dry, intact Internal Med - H&P Results - Labs CBC & Chem 7: 07/02/17 18:44 07/02/17 18:44 Labs: Short CBC 07/02/17 Range/Units 18:44 WBC 12.8 H (4.3-11.1) K/mcL Hgb 10.8 L (12.9-16.9) g/dL Hct 34.3 L (37.5-50.1) % Plt Count 345 (140-400) K/mcL Neutrophils # 10.0 H (1.6-8.9) K/mcL BMP 07/02/17 18:44 Sodium 140 Potassium 4.1 Chloride 102 Carbon Dioxide 28 BUN 15 Creatinine 1.06 Glucose 48 L Calcium 9.7 Liver Function 07/02/17 Range/Units 18:44 Total Bilirubin 0.8 (0.2-1.2) mg/dL AST 49 H (5-34) Units/L ALT 39 (0-55) Units/L Alkaline Phosphatase 109 (38-126) Units/L Albumin 3.0 L (3.5-5.0) g/dL Urine 07/02/17 Range/Units 19:59 Urine Color Yellow (Yellow) Urine Clarity Clear (Clear) Urine pH 6.5 (5.0-8.0) pH Units Ur Specific [place] 1.010 (1.010-1.025) Urine Protein Negative (Neg-Trace) mg/dL Urine Glucose (UA) Normal (Normal) mg/dL - Impressions ITS Impressions Femur X-Ray 07/02/17 17:00 IMPRESSION: Dislocation of the prosthetic head posteriorly and superiorly. D/ / Kolton Jolly MD / Kolton Jolly MD Interpreting Provider: Kolton Jolly MD - VTE Documentation of Mechanical Device: Venous foot pump, device
[2017-07-02] MEDS ORDERED: Levofloxacin 750 MG/150 ML 750 MG/150 ML BAG IVPB SCH (22:00)
--- NOTE | 2017-07-02 22:20 | Anesthesia Evaluation PreOp ---
Date of Encounter: 07/02/17 Time of Encounter: 22:39 - Past History Planned Operation: Revision Left Femur Cardiac History: [place] (2011), CHF, HTN, Hyperlipidemia, Arrhythmia (H/O A-Fib), Cardiac Surgery (CABG x 2 in 2011), Pacemaker/ICD (pacemaker) Pulmonary History: Former smoker (quit 20 years ago), COPD ([place]) DIRECT CARE SPECIALIST History: Denies Any Significant HX Other Medical History: Diabetes Type II, Thyroid, Other (H/O DVT) Anesthesia History: No Prior Anesthetic Complications, Past Anesthesia (left THR , left fem-pop bypass) Alcohol Use: none Drug use: none Medications and Allergies GlipiZIDE [Glucotrol] 7.5 mg PO BID 04/13/15 [History] Atorvastatin [Lipitor] 10 mg PO HS 10/16/15 [History] Albuterol Sulfate [Albuterol Inhaler] 2 puff IH QID PRN 06/01/17 [History] Cholecalciferol (Vitamin D3) [Vitamin D3] 2,000 unit PO DAILY 06/01/17 [History] Sertraline [Zoloft] 100 mg PO QPM 06/01/17 [History] Warfarin [Coumadin] 2 mg PO TH 06/01/17 [History] Warfarin [Coumadin] 4 mg PO SUMOTUWEFRSA 06/01/17 [History] amLODIPine [Norvasc] 5 mg PO DAILY 06/01/17 [History] Polyethylene Glycol 3350 [MiraLAX] 17 gm PO DAILY PRN 06/03/17 [History] Tiotropium [Spiriva] 18 mcg IH 0700 06/03/17 [History] Travoprost [Travatan Z] 1 drop BOTH EYES HS 06/03/17 [History] traZODone [TraZODone] 50 mg PO HS PRN 06/03/17 [History] Ipratropium/Albuterol Neb [Duoneb] 3 ml IH QID PRN #1 06/06/17 [Rx] Clopidogrel [Plavix] 75 mg PO DAILY 06/19/17 [History] Ferrous Sulfate [Iron] 325 mg PO BID 06/19/17 [History] Levothyroxine [Synthroid] 50 mcg PO 0630 06/19/17 [History] MOM Conc [MILK OF MAGNESIA conc] 30 ml PO HS PRN 06/19/17 [History] Pregabalin [Lyrica] 150 mg PO TID 06/19/17 [History] Sennosides/Docusate Sodium [Senna-Docusate Sodium Tablet] 2 tab PO BID PRN 06/19 [History] Saccharomyces Boulardii [Florastor] 250 mg PO BID #60 capsule 06/22/17 [Rx] Losartan Potassium [Cozaar] 100 mg PO DAILY 06/24/17 [History] Metformin HCl [Glucophage] 1,000 mg PO BID 06/24/17 [History] OxyCODONE Immed Rel [Roxicodone 5 MG] 5 - 10 mg PO Q4H PRN 06/24/17 [History] Oxycodone HCl 20 mg PO Q12H 06/24/17 [History] Potassium Chloride [Klor-Con Sprinkle] 10 meq PO DAILY 06/24/17 [History] Furosemide [Lasix] 20 mg PO DAILY #30 tablet 06/29/17 [Rx] Levofloxacin 750 MG/150 ML [Levaquin Premix 750mg/150 mL] 750 mg IVPB DAILY #30 bag 06/29/17 [Rx] Metoprolol [Lopressor] 25 mg PO BID #60 tablet 06/29/17 [Rx] Warfarin perPT [Coumadin perPT] 1 each PO DAILY@1800 PRN each 06/29/17 [Rx] 3 Allergy/AdvReac Type Severity Reaction Status Date / Time azithromycin Allergy See Verified 06/19/17 09:01 Comments ceftriaxone Allergy See Verified 06/19/17 09:01 Comments morphine Allergy See Verified 06/19/17 09:01 Comments sulfamethoxazole AdvReac See Verified 06/19/17 09:01 [From Bactrim] Comments trimethoprim [From Bactrim] AdvReac See Verified 06/19/17 09:01 Comments - Meds/Allergy Pre-op Review Medications Reviewed: Yes Allergies Reviewed: Yes Beta Blockers on Current Med List: No Anesthesia Results - Labs 07/02/17 18:44 07/02/17 18:44 - Imaging EKG: report reviewed (06/24/2017 [facility] [employer]) Additional studies: 06/19/2017 Echo Impressions: Normal LV systolic function, LVEF 55-60%. Atypical septal motion consistent with prior cardiac surgery. Dilated right ventricle with moderate RV hypokinesis. A device lead was visualized in the right atrium and right ventricle. Moderately dilated right atrium. Mild tricuspid regurgitation. Moderate pulmonary hypertension. Estimated RVSP = 53 mmHg. 10/18/2015 [facility] Impressions: Severe [place] vessel coronary artery disease. There is mild LV Dysfunction EF 45%. S/P CABG 2 of 2 patent bypass grafts. 04/14/2015 Stress Impression: Perfusion imaging was negative for ischemia or infarct. Pharmacologic ECG was negative for ischemia at the level of heart rate achieved. Patient had no chest pain with stress. Normal hemodynamic response. No arrhythmias noted with stress. Gated EF = 59%. The LV is not dilated. There is no evidence of TID. Anesthesia Exam Vital Signs/O2 Sat/Glucose, Most Recent Temp Pulse Resp BP Pulse Ox 97.9 F 71 18 118/69 94 07/02/17 19:45 07/02/17 19:45 07/02/17 19:45 07/02/17 19:45 07/02/17 19:45 Height: 5'7''/1.7 m Weight: 164 lbs/74.389 kg Pain Scale: 0 Pain Scale Used: Numeric (1 - 10) - HEENT Pupil (Motor): EOMI Mallampati: II Teeth: Edentulous Oral Opening: Greater than 3 - DIRECT CARE SPECIALIST LOC: Oriented DIRECT CARE SPECIALIST Motor: Normal RUE, Normal LUE, Normal RLE, Normal Face, Deficit LLE DIRECT CARE SPECIALIST Sensory: Normal: RUE, LUE, RLE, Face, Deficit: LLE (neuropathy) - Cardiac Rhythm: Regular Murmur: Systolic - Pulmonary Breath Sounds: bilateral Clear (diminished BS) Respiratory Effort: Symmetrical Anesthesia Assess/Plan ASA Score: 4 (Patient understands that he is at increased risk for perioperative complications including myocardial infarct, arrhythmias, CVA, post op vent support/ICU stay, and . Patient wishes to proceed.) Modified [place] Scale for Level of Consciousness: Cooperative, oriented, and tranquil Anesthetic Plan: General Monitoring Plan: Standard Monitors Recovery Plan: PACU
[2017-07-02] MEDS: *HR* OxyCODONE ER (12 HR) 20 MG TABLET PO SCH (22:31)
[2017-07-02] MEDS ORDERED: 0.9 % Sodium Chloride 250 ML ONE (22:56)
[2017-07-03] MEDS ORDERED: 0.9 % Sodium Chloride 250 ML ONE (03:57)
--- NOTE | 2017-07-03 06:54 | Orthopedics Progress Note ---
Date of Encounter: 07/03/17 Time of Encounter: 06:52 Subjective Interval history: patient is well-known, was seen in the office yesterday with the PA. Patient with another episode of dislocation left hip. X-rays reviewed and compared to old films concern for loosening of femoral component. At initial surgery last month stem was well fixed. Patient also dealing with postoperative infection we discussed different treatment options including removal of hardware and placement of cement spacer. This will be very challenging if the femoral stem is still well fixed and because he has a long femoral plate which required extensive surgery. If the infection is not significant deep revision hip surgery was discussed. All questions were answered, I discussed this all with his yesterday as well. Objective Vital signs: Vital Signs Temp Pulse Resp BP Pulse Ox 07/03/17 04:20 97.6 F 69 16 113/61 93 07/03/17 04:05 98.5 F 65 14 108/64 93 07/03/17 04:00 98.5 F 65 14 108/64 93 07/03/17 02:45 98.2 F 84 16 114/68 98 07/02/17 23:04 97.5 F L 65 14 99/50 97 07/02/17 22:56 97.4 F L 69 14 119/68 94 07/02/17 19:45 97.9 F 71 18 118/69 94 Intake and Output 07/02/17 07/02/17 07/03/17 15:59 23:59 07:59 Intake Total 0 / 0 600 / 600 Output Total 550 / 550 200 / 200 Balance -550 / -550 400 / 400 Intake: Oral 0 / 0 Blood Product 0 / 0 600 / 600 Plasma Unit [id number] 300 / 300 Plasma Unit [id number] 0 / 0 300 / 300 Output: Urine 550 / 550 200 / 200 Other: Weight 74.389 kg Blood Glucose* 113 - Labs CBC & BMP: 07/02/17 18:44 07/02/17 18:44 Labs: Abnormal lab results WBC 12.8 K/mcL (4.3-11.1) H 07/02/17 18:44 RBC 3.62 M/mcL (4.19-5.50) L 07/02/17 18:44 Hgb 10.8 g/dL (12.9-16.9) L 07/02/17 18:44 Hct 34.3 % (37.5-50.1) L 07/02/17 18:44 MCHC 31.5 g/dL (31.6-35.5) L 07/02/17 18:44 RDW 18.0 % (11.5-14.5) H 07/02/17 18:44 Neutrophils # 10.0 K/mcL (1.6-8.9) H 07/02/17 18:44 PT 21.4 Seconds (9.4-12.1) H 07/02/17 18:44 APTT 36.9 Seconds (26.0-36.0) H 07/02/17 18:44 Glucose 48 mg/dL (70-99) L 07/02/17 18:44 AST 49 Units/L (5-34) H 07/02/17 18:44 Albumin 3.0 g/dL (3.5-5.0) L 07/02/17 18:44 Globulin 4.2 g/dL (2.4-3.5) H 07/02/17 18:44 Albumin/Globulin Ratio 0.7 (1.1-2.2) L 07/02/17 18:44 - VTE Documentation of Mechanical Device: Venous foot pump, device Consult Discharge Plan - Plan [facility]errals: [facility] [Primary Care Provider] -
[2017-07-03] MEDS ORDERED: Levofloxacin 750 MG/150 ML 750 MG/150 ML BAG IVPB SCH (09:00)
[2017-07-03] MEDS ORDERED: NON-FORMULARY MEDICATION 1 EACH EACH (Levofloxacin 750 Mg/150 Ml 750 MG) IVPB SCH (09:00)
[2017-07-03] MEDS ORDERED: Cholecalciferol (D-3) 1,000 UNIT TABLET PO SCH (09:00)
[2017-07-03] MEDS ORDERED: Pregabalin 75 MG CAPSULE PO SCH (09:00)
[2017-07-03] MEDS ORDERED: amLODIPine 5 MG TABLET PO SCH (09:00)
[2017-07-03] MEDS ORDERED: Lactobacillus 1 EACH CAP.SPRINK PO SCH (09:00)
[2017-07-03 10:09] LABS: Hematocrit 28.6 % (37.5-50.1); Mean Corpuscular HGB Conc 32.2 g/dL (31.6-35.5); Mean Corpuscular Hemoglobin 30.4 pg (28.0-33.3); Mean Corpuscular Volume 94.4 fL (83.0-100.0); Platelet Count 249 K/mcL (140-400); Red Blood Count 3.03 M/mcL (4.19-5.50)
[2017-07-03 10:10] LABS: INR 1.7; Prothrombin Time 18.2 Seconds (9.4-12.1)
[2017-07-03 10:12] LABS: Hemoglobin 9.2 g/dL (12.9-16.9)
[2017-07-03 10:22] LABS: BUN/Creatinine Ratio 15 (6-26); Blood Urea Nitrogen 14 mg/dL (8-26); C-Reactive Protein 62 mg/L (Less than 5); Calcium 9.4 mg/dL (8.6-10.8); Carbon Dioxide 29 mEq/L (19-29); Chloride 103 mEq/L (98-109); Glucose 90 mg/dL (70-99); Osmolality,Calculated 290 (280-300); Sodium 140 mEq/L (136-145); eGFR For African Americans > 60 (> 60); eGFR For Non-African Americans > 60 (> 60)
[2017-07-03] MEDS: Insulin LISPRO 300 UNITS/3 ML VIAL SQ SCH (11:46)
[2017-07-03] MEDS: *HR* OxyCODONE ER (12 HR) 20 MG TABLET PO SCH ×3 (11:46→21:07)
[2017-07-03] MEDS ORDERED: Lidocaine -MPF 2% 2 ML VIAL ONE (15:28)
[2017-07-03] MEDS ORDERED: *HR* Propofol 200 MG/20 ML VIAL IVP ONE (15:28)
[2017-07-03] MEDS ORDERED: *HR* FentaNYL (PF) 100 MCG/2 ML VIAL ONE (15:28)
[2017-07-03] MEDS ORDERED: *HR* Succinylcholine 200 MG/10 ML VIAL IVP ONE (15:28)
[2017-07-03] MEDS ORDERED: Lidocaine -MPF 4% 5 ML AMPUL ONE (15:28)
[2017-07-03] MEDS ORDERED: Ondansetron 4 MG/2 ML VIAL ONE (15:28)
[2017-07-03] MEDS ORDERED: Dexamethasone 4 MG/ML VIAL ONE (15:28)
[2017-07-03] MEDS ORDERED: Clindamycin 900 MG/50 ML 900 MG/50 ML IV.SOLN IVPB ONE (16:34)
[2017-07-03] MEDS ORDERED: Ethanol\\Acetic Acid\\Na Ace\\Ben 1,000 ML IRRIG.SOLN IR ONE (16:34)
[2017-07-03] MEDS ORDERED: MOM Conc 10 ML UD.LIQ PO PRN (16:51)
[2017-07-03] MEDS ORDERED: D5% in Water 1,000 ML IVC PRN (16:51)
[2017-07-03] MEDS ORDERED: Naloxone 0.4 MG/ML INJ IVP PRN ×2 (16:51)
[2017-07-03] MEDS ORDERED: Ondansetron 4 MG/2 ML VIAL IVP PRN ×2 (16:51)
[2017-07-03] MEDS ORDERED: *HR* Dextrose 50 % in Water (Syg) 50 ML SYRINGE IVP PRN (16:51)
[2017-07-03] MEDS ORDERED: *HR* OxyCODONE Immed Rel 5 MG TABLET PO PRN ×2 (16:51)
[2017-07-03] MEDS ORDERED: Sennosides 8.6 MG TABLET PO PRN (16:51)
[2017-07-03] MEDS ORDERED: traZODone 50 MG TABLET PO PRN (16:51)
[2017-07-03] MEDS ORDERED: *HR* HYDROmorphone (PF) 1 MG/ML SYRINGE IVP PRN (16:51)
[2017-07-03] MEDS ORDERED: Temazepam 15 MG CAPSULE PO PRN (16:51)
[2017-07-03] MEDS ORDERED: Acetaminophen 325 MG TABLET PO PRN (16:51)
[2017-07-03] MEDS ORDERED: Dextrose Gel 15 GM PO PRN ×2 (16:51)
[2017-07-03] MEDS ORDERED: *HR* Promethazine 25 MG/ML VIAL IVP PRN (17:18)
[2017-07-03] MEDS ORDERED: EPHEDrine 50 MG/ML VIAL ONE (17:26)
--- NOTE | 2017-07-03 18:33 | Orthopedic Operative Note ---
Date of procedure: 07/03/17 Pre-op diagnosis: Infected dislocated left total hip Post-op diagnosis: same Procedure: Procedure: Left hip irrigation debridement revision of acetabulum Estimated blood loss: 500 cc Hardware: Metal and polyethylene replacement. [email or web address] Duraloc ring for a 54 cup 32 mm constrained liner for 54 cup 32+13 metal head Procedural Notes: Patient with wound dehiscence minimal drainage patient with dislocation of left total hip patient was well fixed femoral stem no purulence. Operative procedure: The patient was brought to the operating room and placed on the operating room table. After general anesthesia was administered the patient was placed in the lateral decubitus position with the operative leg up. All pressure points were padded appropriately and the head was stabilized in the neutral position. The operative extremity was prepped and draped in the sterile surgical fashion patient received IV antibiotic prior to skin incision. An elliptical incision was made around the open wound dehiscence which extended approximately 3 mm deep. This was taken down to the level of the fascia of the dissection vertically. No purulence was identified. Extensive debridement was performed of the subcutaneous tissue. Cultures were obtained through the opening in the fascia. Extensive debridement was performed around the femoral component. Femoral component was dislocated. The hip was brought into internal rotation the femoral head was removed. Soft tissue was removed around the proximal femur. A stem extractor was placed, the femoral stem was found to be well fixed. Decision was made to proceed with removal of acetabular liner and conversion to a constrained liner extensive debridement was performed around the acetabulum. The pocket was removed with extractor. The hip was irrigated with 1 L of antibacterial solution. The hip was then irrigated with 1 L of pulse irrigation. The 54 Duraloc ring was placed. The 32 mm constrained liner was seated. A 32+13 metal head was seated and secured. The head was reduced within the constrained liner with a audible thud. The hip had excellent stability after the circular ring was locked in place. The hips after 2 minutes with a Betadine saline solution. It was irrigated out with 1 L of antibacterial solution. It was irrigated out with 2 L of pulse irrigation. The fascia was closed over a GET drain with #2 PDS suture. The deep tissue was irrigated and closed deep with #1 PDS suture superficially with 0 PDS suture and skin was closed with zip line and skin anahi. The patient was placed in a sterile dressing and abduction pillow and knee immobilizer. The patient was extubated and transferred to the recovery room in stable condition. Anesthesia: GETA Surgeon: Andrea Cannon Condition: stable Disposition: PACU
[2017-07-03] MEDS: *HR* HYDROmorphone (PF) 1 MG/ML SYRINGE IVP PRN ×2 (18:55→19:08)
--- NOTE | 2017-07-03 19:05 | Internal Med Progress Note ---
Date of Encounter: 07/03/17 Time of Encounter: 19:31 - Assessment and plan (1) COPD (chronic obstructive pulmonary disease) Current Visit: No Status: Chronic Qualifiers: COPD type: chronic bronchitis Chronic bronchitis type: simple Qualified Code(s): J41.0 - Simple chronic bronchitis (2) Atrial fibrillation Current Visit: No Status: Chronic Qualifiers: Atrial fibrillation type: paroxysmal Qualified Code(s): I48.0 - Paroxysmal atrial fibrillation (3) Anemia Current Visit: Yes Status: Acute Qualifiers: Anemia type: iron deficiency Iron deficiency anemia type: chronic blood loss Qualified Code(s): D50.0 - Iron deficiency anemia secondary to blood loss (chronic) - Time Spent With Patient Will transfer patient to monitor bed , Check Magnesium and potassium , keep potasium more than magnesium more than. check INR electrolytes next AM , check H /H . 25 - 35 minutes - Subjective Interval history: Patient had episode of A Fib with RVR , Had pace maker inrugation , now back to sinus rhythm - Constitutional Vitals: Temp Pulse Resp BP Pulse Ox 97.6 F 79 16 103/69 94 07/03/17 17:48 07/03/17 11:42 07/03/17 17:48 07/03/17 17:48 07/03/17 17:48 - Head Head exam: Present: atraumatic, normocephalic - Eye Eye exam: Present: conjuntiva pink, sclera anicteric - Neck Neck exam general surgery: Present: supple, trachea midline. Absent: lymphadenopathy - Respiratory Respiratory exam: Present: CTAB. Absent: accessory muscle use, rales, rhonchi, wheezes - Cardiovascular Cardiovascular exam: Present: RRR, +S1, +S2. Absent: diastolic murmur, gallop, rubs, systolic murmur - GI/Abdominal GI/Abdominal exam: Present: normal bowel sounds, soft, no peritoneal signs. Absent: distended, tenderness - Neurological Exam Neurological exam: Present: CN II-XII intact, no focal deficits. Absent: facial droop, speech deficit Internal Medicine: Result - Labs CBC & Chem 7: 07/03/17 09:55 07/03/17 09:55 Labs: Short CBC 07/02/17 07/03/17 Range/Units 18:44 09:55 WBC 12.8 H 8.8 (4.3-11.1) K/mcL Hgb 10.8 L 9.2 L D (12.9-16.9) g/dL Hct 34.3 L 28.6 L (37.5-50.1) % Plt Count 345 249 (140-400) K/mcL Neutrophils # 10.0 H (1.6-8.9) K/mcL BMP 07/02/17 07/03/17 18:44 09:55 Sodium 140 140 Potassium 4.1 4.0 Chloride 102 103 Carbon Dioxide 28 29 BUN 15 14 Creatinine 1.06 0.92 Glucose 48 L 90 Calcium 9.7 9.4 Liver Function 07/02/17 Range/Units 18:44 Total Bilirubin 0.8 (0.2-1.2) mg/dL AST 49 H (5-34) Units/L ALT 39 (0-55) Units/L Alkaline Phosphatase 109 (38-126) Units/L Albumin 3.0 L (3.5-5.0) g/dL Urine 07/02/17 Range/Units 19:59 Urine Color Yellow (Yellow) Urine Clarity Clear (Clear) Urine pH 6.5 (5.0-8.0) pH Units Ur Specific [place] 1.010 (1.010-1.025) Urine Protein Negative (Neg-Trace) mg/dL Urine Glucose (UA) Normal (Normal) mg/dL - ABG Interpretation ABG results: PT/INR, D-dimer PT 18.2 Seconds (9.4-12.1) H 07/03/17 09:55 - VTE Documentation of Mechanical Device: Venous foot pump, device Consult Discharge Plan - Plan [facility]errals: [facility] [Primary Care Provider] -
[2017-07-03 19:31] LABS: Hemoglobin 8.7 g/dL (12.9-16.9)
[2017-07-03 19:52] LABS: Alanine Aminotransferase 22 Units/L (0-55); Alkaline Phosphatase 79 Units/L (38-126); Aspartate Amino Transferase 30 Units/L (5-34); BUN/Creatinine Ratio 14 (6-26); Bilirubin,Total 0.9 mg/dL (0.2-1.2); Blood Urea Nitrogen 13 mg/dL (8-26); Calcium 8.3 mg/dL (8.6-10.8); Carbon Dioxide 24 mEq/L (19-29); Chloride 106 mEq/L (98-109); Glucose 113 mg/dL (70-99); Magnesium 1.3 mg/dL (1.6-2.6); Osmolality,Calculated 293 (280-300); Potassium 3.9 mEq/L (3.5-4.5); Sodium 141 mEq/L (136-145); Total Protein 5.4 g/dL (6.0-8.3); eGFR For African Americans > 60 (> 60); eGFR For Non-African Americans > 60 (> 60)
[2017-07-03 20:24] LABS: Albumin 2.4 g/dL (3.5-5.0); Albumin/Globulin Ratio 0.8 (1.1-2.2)
[2017-07-03] MEDS: Ringers Solution, Lactated 1,000 ML IVC SCH ×3 (20:46→21:04)
[2017-07-03] MEDS: Ascorbic Acid 500 MG TABLET PO SCH (20:47)
[2017-07-03] MEDS ORDERED: Latanoprost 2.5 ML BOTTLE BOTH EYES SCH (21:00)
[2017-07-03] MEDS: Lactobacillus 1 EACH CAP.SPRINK PO SCH (21:05)
[2017-07-03] MEDS: Pregabalin 75 MG CAPSULE PO SCH (21:07)
[2017-07-03] MEDS: Latanoprost 2.5 ML BOTTLE BOTH EYES SCH (21:08)
--- NOTE | 2017-07-03 21:31 | Anesthesia Evaluation Post Op ---
Date of Encounter: 07/03/17 Time of Encounter: 21:30 - Vital Signs Vital Signs: Vital Signs/O2 Sat, Most Current Temp Pulse Resp BP Pulse Ox 98.1 F 112 16 90/66 97 07/03/17 19:48 07/03/17 19:48 07/03/17 19:48 07/03/17 19:48 07/03/17 19:48 - Lungs Lungs: Clear Ascult./Percussion - Airway Airway: Non-obstructed - Cardiovascular Regular Rate - Mental Status Mental Status: Alert & Oriented, Answers Appropriately - Pain Pain Scale: 3 Pain Scale used: Numeric (1 - 10) - Nausea Vomiting Nausea Vomiting: Not Present - Hydration Hydration: Tolerates oral liquids, Has not voided
[2017-07-04 04:01] LABS: Basophils % 0.1 %; Hematocrit 23.9 % (37.5-50.1); Hemoglobin 7.4 g/dL (12.9-16.9); Immature Granulocytes % 1.3 % (0-4); Lymphocytes # 0.3 K/mcL (0.6-4.6); Lymphocytes % 3.4 %; Mean Corpuscular Hemoglobin 29.6 pg (28.0-33.3); Mean Corpuscular Volume 95.6 fL (83.0-100.0); Mean Platelet Volume 10.4 fL (9.4-12.4); Monocytes # 0.3 K/mcL (0.0-1.3); Monocytes % 4.2 %; Neutrophils # 6.9 K/mcL (1.6-8.9); Platelet Count 210 K/mcL (140-400); Red Cell Distribution Width 17.5 % (11.5-14.5)
[2017-07-04 04:07] LABS: INR 1.7; Prothrombin Time 18.9 Seconds (9.4-12.1)
[2017-07-04 04:18] LABS: BUN/Creatinine Ratio 15 (6-26); Blood Urea Nitrogen 18 mg/dL (8-26); Calcium 8.1 mg/dL (8.6-10.8); Carbon Dioxide 23 mEq/L (19-29); Chloride 102 mEq/L (98-109); Glucose 416 mg/dL (70-99); Osmolality,Calculated 296 (280-300); Potassium 4.5 mEq/L (3.5-4.5); eGFR For African Americans > 60 (> 60); eGFR For Non-African Americans 59 (> 60)
[2017-07-04 04:23] LABS: Sodium 133 mEq/L (136-145)
[2017-07-04] MEDS ORDERED: Insulin LISPRO 300 UNITS/3 ML VIAL SQ SCH (07:30)
[2017-07-04] MEDS: Ringers Solution, Lactated 1,000 ML IVC SCH ×3 (07:52→20:17)
[2017-07-04] MEDS ORDERED: 0.9 % Sodium Chloride 250 ML ONE (08:14)
--- NOTE | 2017-07-04 08:25 | Internal Med Progress Note ---
Date of Encounter: 07/04/17 Time of Encounter: 08:25 - Assessment and plan (1) COPD (chronic obstructive pulmonary disease) Current Visit: No Status: Chronic Assessment and plan: Stable, close monitoring of his oxygenation, continue albuterol as needed Qualifiers: COPD type: chronic bronchitis Chronic bronchitis type: simple Qualified Code(s): J41.0 - Simple chronic bronchitis (2) Atrial fibrillation Current Visit: No Status: Chronic Assessment and plan: Now sinus asthma continue Lopressor Qualifiers: Atrial fibrillation type: paroxysmal Qualified Code(s): I48.0 - Paroxysmal atrial fibrillation (3) Anemia Current Visit: Yes Status: Acute Assessment and plan: Check iron study, in view of hypotension and tachycardia and his coronary artery disease will transfuse 1 unit of blood plan discussed with patient Qualifiers: Anemia type: other cause Other causes of anemia: other cause, not classified Qualified Code(s): D64.89 - Other specified anemias (4) Diabetes Current Visit: No Status: Chronic Assessment and plan: Increase insulin sliding scale, close monitoring of blood sugar, may consider adding long-acting Qualifiers: Diabetes mellitus type: type 2 Diabetes mellitus complication status: with hyperglycemia Diabetes mellitus alf insulin use: without alf use Qualified Code(s): E11.65 - Type 2 diabetes mellitus with hyperglycemia (5) Hypomagnesemia Current Visit: No Status: Acute Assessment and plan: Replace Magnesium , 2 Gram magnesium IV - Time Spent With Patient 25 - 35 minutes - Subjective Interval history: Patient had episode of A Fib with RVR , Had pace maker inrugation , now back to sinus rhythm, patient was hypotensive effect this morning with blood pressure down to 99 and heart rate up to 118 . Hemoglobin down from 10.8-7.4. Patient denies any chest pain or shortness of breath - Constitutional Vitals: Temp Pulse Resp BP Pulse Ox 98.1 F 95 12 100/60 91 07/04/17 07:39 07/04/17 07:39 07/04/17 07:39 07/04/17 07:39 07/04/17 07:39 General appearance: Present: A&O X 3, pleasant - Head Head exam: Present: atraumatic, normocephalic - Neck Neck exam general surgery: Present: supple, trachea midline. Absent: lymphadenopathy - Respiratory Respiratory exam: Present: CTAB. Absent: accessory muscle use, rales, rhonchi, wheezes - Cardiovascular Cardiovascular exam: Present: RRR, +S1, +S2. Absent: diastolic murmur, gallop, rubs, systolic murmur - GI/Abdominal GI/Abdominal exam: Present: normal bowel sounds, soft, no peritoneal signs. Absent: distended, tenderness - Extremities Exam Extremities exam: Present: warm, radial pulses palpable and symmetrical. Absent : calf tenderness, cyanotic, pedal edema Internal Medicine: Result - Labs CBC & Chem 7: 07/04/17 02:59 07/04/17 02:59 Labs: Short CBC 07/03/17 07/03/17 07/04/17 Range/Units 09:55 19:06 02:59 WBC 8.8 7.6 (4.3-11.1) K/mcL Hgb 9.2 L D 8.7 L 7.4 L (12.9-16.9) g/dL Hct 28.6 L 29.0 L 23.9 L (37.5-50.1) % Plt Count 249 210 (140-400) K/mcL Neutrophils # 6.9 (1.6-8.9) K/mcL BMP 07/03/17 07/03/17 07/04/17 09:55 19:06 02:59 Sodium 140 141 133 L D Potassium 4.0 3.9 4.5 Chloride 103 106 102 Carbon Dioxide 29 24 23 BUN 14 13 18 Creatinine 0.92 0.92 1.21 Glucose 90 113 H 416 H Calcium 9.4 8.3 L 8.1 L Liver Function 07/03/17 Range/Units 19:06 Total Bilirubin 0.9 (0.2-1.2) mg/dL AST 30 (5-34) Units/L ALT 22 (0-55) Units/L Alkaline Phosphatase 79 (38-126) Units/L Albumin 2.4 L (3.5-5.0) g/dL - ABG Interpretation ABG results: PT/INR, D-dimer PT 18.9 Seconds (9.4-12.1) H 07/04/17 02:59 - Impressions Impressions Hip X-Ray 07/03/17 16:24 IMPRESSION: Interval reduction of the femoral component within the acetabulum. D/ / Bishnu Ng MD / Bishnu Ng MD Interpreting Provider: Bishnu Ng MD - VTE Documentation of Mechanical Device: Intermittent pneumatic compression device Consult Discharge Plan - Plan [facility]errals: [facility] [Primary Care Provider] -
[2017-07-04] MEDS: Insulin LISPRO 300 UNITS/3 ML VIAL SQ SCH ×3 (08:44→16:53)
[2017-07-04] MEDS: Ascorbic Acid 500 MG TABLET PO SCH ×2 (08:45→16:43)
[2017-07-04] MEDS: Lactobacillus 1 EACH CAP.SPRINK PO SCH ×2 (08:47→20:10)
[2017-07-04] MEDS: Pregabalin 75 MG CAPSULE PO SCH ×3 (08:47→20:10)
[2017-07-04] MEDS: Multivit/Ca/Min/Fe/FA 1 TAB TABLET PO SCH (08:48)
[2017-07-04] MEDS: *HR* OxyCODONE ER (12 HR) 20 MG TABLET PO SCH ×2 (08:48→20:11)
[2017-07-04] MEDS: Cholecalciferol (D-3) 1,000 UNIT TABLET PO SCH (08:48)
[2017-07-04] MEDS ORDERED: Levofloxacin 750 MG/150 ML 750 MG/150 ML BAG IVPB SCH (09:00)
[2017-07-04] MEDS ORDERED: amLODIPine 5 MG TABLET PO SCH (09:00)
--- NOTE | 2017-07-04 09:49 | Orthopedics Progress Note ---
Date of Encounter: 07/04/17 Time of Encounter: 09:47 Subjective Interval history: S: Patient is seen and evaluated this morning. Pain well controlled. O: AFVSS Left hip with post op dressing. Mild spotting GET drain with small amount of bloody output. A: Post left hip revision with placement of constrained liner. P: Resume post op care Anticipate discharge back to [place] Objective Vital signs: Vital Signs Temp Pulse Resp BP Pulse Ox 07/04/17 08:40 97.7 F 76 16 119/69 94 07/04/17 08:30 97.7 F 118 16 99/63 94 07/04/17 07:39 98.1 F 95 12 100/60 91 07/04/17 06:09 104/68 07/04/17 05:33 102/66 07/04/17 04:50 98.4 F 75 15 135/70 94 07/03/17 23:25 98.6 F 97 18 98/58 99 07/03/17 22:25 97.7 F 99 18 99/59 99 07/03/17 21:25 97.6 F 78 18 110/64 98 07/03/17 20:55 97.6 F 99 16 86/59 97 07/03/17 20:25 98 F 95 18 86/59 97 07/03/17 19:48 98.1 F 112 16 90/66 97 07/03/17 19:38 120 16 90/51 97 07/03/17 19:28 97.7 F 79 16 121/67 96 07/03/17 19:18 79 16 111/63 96 07/03/17 19:08 79 16 103/69 96 07/03/17 17:48 97.6 F 130 16 103/69 94 07/03/17 11:42 98.0 F 79 16 157/74 95 Intake and Output 07/03/17 07/04/17 07/04/17 23:59 07:59 15:59 Intake Total 240 / 240 Output Total 500 / 500 390 / 390 Balance -500 / -500 -390 / -390 240 / 240 Intake: Oral 240 / 240 Blood Product 0 / 0 Rbcs Leuko Poor As-3 Ph Unit 0 / 0 [id number] Output: Urine 200 / 200 Estimated Blood Loss 500 / 500 Wound Drainage 190 / 190 Left Thigh 190 / 190 Other: Meal Breakfast Percent of Meal Consumed 95% # Voids 1 Blood Glucose* 121 326 - Labs CBC & BMP: 07/04/17 02:59 07/04/17 02:59 Labs: Abnormal lab results RBC 2.50 M/mcL (4.19-5.50) L 07/04/17 02:59 Hgb 7.4 g/dL (12.9-16.9) L 07/04/17 02:59 Hct 23.9 % (37.5-50.1) L 07/04/17 02:59 MCHC 31.0 g/dL (31.6-35.5) L 07/04/17 02:59 RDW 17.5 % (11.5-14.5) H 07/04/17 02:59 Lymphocytes # 0.3 K/mcL (0.6-4.6) L 07/04/17 02:59 ESR 41 mm/hr (0-10) H 07/03/17 09:55 PT 18.9 Seconds (9.4-12.1) H 07/04/17 02:59 APTT 36.9 Seconds (26.0-36.0) H 07/02/17 18:44 Sodium 133 mEq/L (136-145) L D 07/04/17 02:59 Est GFR (Non-Af Amer) 59 (> 60) L 07/04/17 02:59 Glucose 416 mg/dL (70-99) H 07/04/17 02:59 POC Glucose 326 (58-89) H 07/04/17 08:28 Calcium 8.1 mg/dL (8.6-10.8) L 07/04/17 02:59 Magnesium 1.3 mg/dL (1.6-2.6) L 07/03/17 19:06 C-Reactive Protein 62 mg/L (Less than 5) H 07/03/17 09:55 Serum Total Protein 5.4 g/dL (6.0-8.3) L D 07/03/17 19:06 Albumin 2.4 g/dL (3.5-5.0) L 07/03/17 19:06 Albumin/Globulin Ratio 0.8 (1.1-2.2) L 07/03/17 19:06 - VTE Documentation of Mechanical Device: Intermittent pneumatic compression device Consult Discharge Plan - Plan [facility]errals: [facility] [Primary Care Provider] -
[2017-07-04] MEDS: Sennosides 8.6 MG TABLET PO SCH (11:17)
[2017-07-04] MEDS ORDERED: 0.9 % Sodium Chloride 500 ML ONE (12:56)
[2017-07-04] MEDS ORDERED: 0.9 % Sodium Chloride 500 ML IVC ONE ×2 (12:58→16:19)
[2017-07-04] MEDS ORDERED: *HR* Digoxin 0.5 MG/2 ML AMPUL IVP ONE ×2 (15:13→18:00)
[2017-07-04] MEDS ORDERED: *HR* Metoprolol 5 MG/5 ML VIAL IVP ONE ×2 (16:23→17:20)
[2017-07-04] MEDS ORDERED: Albumin 25% 25gram/100mL 25 GM/100 ML IV.SOLN IVPB ONE (16:31)
[2017-07-04 16:49] LABS: Hematocrit 25.4 % (37.5-50.1); Hemoglobin 8.3 g/dL (12.9-16.9)
[2017-07-04] MEDS ORDERED: 0.9 % Sodium Chloride 1,000 ML IVC ONE (17:57)
[2017-07-04] MEDS ORDERED: *HR* Warfarin 2.5 MG TABLET PO SCH (18:00)
[2017-07-04] MEDS ORDERED: 0.9 % Sodium Chloride 1,000 ML ONE (18:02)
[2017-07-04] MEDS ORDERED: Amiodarone Premix 150 MG/100 ML BAG IVPB ONE (18:32)
[2017-07-04] MEDS: Latanoprost 2.5 ML BOTTLE BOTH EYES SCH (23:28)
[2017-07-04] MEDS ORDERED: Amiodarone Premix 360 MG/200 ML BAG IVC ONE (23:34)
[2017-07-05 03:28] LABS: Hematocrit 25.8 % (37.5-50.1); Hemoglobin 8.2 g/dL (12.9-16.9)
[2017-07-05 03:38] LABS: INR 1.8; Prothrombin Time 19.2 Seconds (9.4-12.1)
[2017-07-05 05:32] LABS: BUN/Creatinine Ratio 14 (6-26); Blood Urea Nitrogen 14 mg/dL (8-26); Calcium 7.9 mg/dL (8.6-10.8); Carbon Dioxide 24 mEq/L (19-29); Chloride 107 mEq/L (98-109); Glucose 139 mg/dL (70-99); Osmolality,Calculated 287 (280-300); Potassium 3.8 mEq/L (3.5-4.5); Sodium 137 mEq/L (136-145); eGFR For African Americans > 60 (> 60); eGFR For Non-African Americans > 60 (> 60)
[2017-07-05] MEDS ORDERED: Amiodarone Premix 360 MG/200 ML BAG IVC SCH (06:00)
--- NOTE | 2017-07-05 07:35 | Internal Med Progress Note ---
Date of Encounter: 07/05/17 Time of Encounter: 07:32 - Assessment and plan (1) COPD (chronic obstructive pulmonary disease) Current Visit: No Status: Chronic Assessment and plan: Stable Qualifiers: COPD type: chronic bronchitis Chronic bronchitis type: simple Qualified Code(s): J41.0 - Simple chronic bronchitis (2) Atrial fibrillation Current Visit: No Status: Chronic Assessment and plan: Patient continued to have atrial fibrillation without ventricular response, he is currently on amiodarone drip, replace potassium keep potassium more than 4, recheck magnesium, discontinue Levaquin, replace calcium. Qualifiers: Atrial fibrillation type: paroxysmal Qualified Code(s): I48.0 - Paroxysmal atrial fibrillation (3) Anemia Current Visit: Yes Status: Acute Assessment and plan: Secondary to blood loss on top of chronic anemia . Patient was transfused 2 units of blood, H&H every 8, check stool for occult blood, check iron study Qualifiers: Anemia type: other cause Other causes of anemia: other cause, not classified Qualified Code(s): D64.89 - Other specified anemias (4) Diabetes Current Visit: No Status: Chronic Assessment and plan: Insulin sliding scale Qualifiers: Diabetes mellitus type: type 2 Diabetes mellitus complication status: with hyperglycemia Diabetes mellitus cpc insulin use: without cpc use Qualified Code(s): E11.65 - Type 2 diabetes mellitus with hyperglycemia (5) Hypomagnesemia Current Visit: No Status: Acute Assessment and plan: Recheck magnesium today magnesium was replaced yesterday (6) Hypoalbuminemia Current Visit: Yes Status: Acute Assessment and plan: Patient received 1 dose of albumin, supplement with meals (7) Wound infection Current Visit: Yes Status: Acute Assessment and plan: Recent wound culture before surgery was positive for Pseudomonas, will start patient on cefepime, discontinue Levaquin in view of atrial fib uncontrolled , check lactic acid , blood culture is pending - Time Spent With Patient Greater than 35 minutes - Subjective Interval history: Patient is complaining of mild shortness of breath. Patient denies any chest pain. Patient denies any nausea vomiting. Patient continued to have A. fib with RVR. Patient denies any fever or chills, recent wound infection before surgery was positive for Pseudomonas - Constitutional Vitals: Temp Pulse Resp BP Pulse Ox 97.5 F L 126 16 109/84 91 07/05/17 07:24 07/05/17 07:24 07/05/17 07:24 07/05/17 07:24 07/05/17 07:24 General appearance: Present: no acute distress - Head Head exam: Present: atraumatic, normocephalic - Neck Neck exam general surgery: Present: supple, trachea midline. Absent: lymphadenopathy - Respiratory Respiratory exam: Present: decreased breath sounds. Absent: accessory muscle use, rales, rhonchi, wheezes - Cardiovascular Cardiovascular exam: Present: irregular rhythm, +S1, +S2. Absent: diastolic murmur, gallop, rubs, systolic murmur - GI/Abdominal GI/Abdominal exam: Present: normal bowel sounds, soft, no peritoneal signs. Absent: distended, tenderness - Extremities Exam Extremities exam: Present: warm, radial pulses palpable and symmetrical. Absent : calf tenderness, cyanotic, pedal edema - Neurological Exam Neurological exam: Present: CN II-XII intact, oriented X3, no focal deficits. Absent: pronater drift, facial droop, speech deficit Internal Medicine: Result - Labs CBC & Chem 7: 07/05/17 03:15 07/05/17 03:15 Labs: Short CBC 07/04/17 07/05/17 Range/Units 16:26 03:15 Hgb 8.3 L 8.2 L (12.9-16.9) g/dL Hct 25.4 L 25.8 L (37.5-50.1) % BMP 07/05/17 03:15 Sodium 137 Potassium 3.8 Chloride 107 Carbon Dioxide 24 BUN 14 Creatinine 1.01 Glucose 139 H Calcium 7.9 L - ABG Interpretation ABG results: PT/INR, D-dimer PT 19.2 Seconds (9.4-12.1) H 07/05/17 03:15 - VTE Documentation of Mechanical Device: Intermittent pneumatic compression device Consult Discharge Plan - Plan [facility]errals: [facility] [Primary Care Provider] -
[2017-07-05] MEDS ORDERED: 0.9 % Sodium Chloride 1,000 ML IVC SCH (08:00)
[2017-07-05] MEDS: Sennosides 8.6 MG TABLET PO SCH (08:45)
[2017-07-05] MEDS: Lactobacillus 1 EACH CAP.SPRINK PO SCH ×2 (08:45→20:32)
[2017-07-05] MEDS: Cholecalciferol (D-3) 1,000 UNIT TABLET PO SCH (08:46)
[2017-07-05] MEDS: *HR* OxyCODONE ER (12 HR) 20 MG TABLET PO SCH ×2 (08:46→20:32)
[2017-07-05] MEDS: Pregabalin 75 MG CAPSULE PO SCH ×3 (08:46→20:32)
[2017-07-05] MEDS: Multivit/Ca/Min/Fe/FA 1 TAB TABLET PO SCH (08:46)
[2017-07-05] MEDS: Ascorbic Acid 500 MG TABLET PO SCH ×2 (08:46→16:35)
[2017-07-05 08:52] LABS: Hematocrit 26.9 % (37.5-50.1); Hemoglobin 8.8 g/dL (12.9-16.9)
[2017-07-05] MEDS: Insulin LISPRO 300 UNITS/3 ML VIAL SQ SCH ×3 (08:57→16:36)
[2017-07-05] MEDS: Ringers Solution, Lactated 1,000 ML IVC SCH ×2 (09:56)
[2017-07-05 10:53] LABS: Basophils % 0.4 %; Eosinophils # 0.2 K/mcL (0.0-0.6); Eosinophils % 1.5 %; Immature Granulocytes % 1.1 % (0-4); Lymphocytes # 1.5 K/mcL (0.6-4.6); Lymphocytes % 15.3 %; Mean Corpuscular Hemoglobin 30.4 pg (28.0-33.3); Mean Corpuscular Volume 94.9 fL (83.0-100.0); Mean Platelet Volume 10.6 fL (9.4-12.4); Monocytes # 1.1 K/mcL (0.0-1.3); Monocytes % 10.8 %; Neutrophils # 6.9 K/mcL (1.6-8.9); Platelet Count 200 K/mcL (140-400); Red Blood Count 2.73 M/mcL (4.19-5.50); Red Cell Distribution Width 17.2 % (11.5-14.5); Segmented Neutrophils % 70.9 %
[2017-07-05 11:08] LABS: Magnesium 1.3 mg/dL (1.6-2.6)
[2017-07-05 11:15] LABS: Albumin 2.6 g/dL (3.5-5.0); Magnesium 1.8 mg/dL (1.6-2.6)
--- NOTE | 2017-07-05 11:52 | Cardiology Consult Note ---
Date of Encounter: 07/05/17 Time of Encounter: 11:48 Assessment and Plan (1) CAD in [place] artery Current Visit: Yes Status: Acute CAD, prior CABG. [facility] performed 2016, medical therapy recommended. No chest pain reported. Recommend continue statin, metoprolol therapy. Ideally, should be on aspirin therapy for secondary prevention. Will star aspirin 81 mg daily. (2) Tachycardia Current Visit: Yes Status: Acute Persistent tachycardia noted. Device interrogation does not demonstrate any arrhythmias. Device seems to be tracking atrial activity. Recommend continue to treat with supportive care, including fluids, pain control , PRBCs as needed. Stop amiodarone started yesterday - no compelling indication for this medication. Okay to titrate beta cyn as needed. Discussion w patient/family: The assessment and plan as outlined above was discussed with the patient and/or family members who expressed understanding and agreement. All questions were answered. Thank you for involving us in the care of your patient. Please call with any questions. History of Present Illness Consult date: 07/05/17 Requesting physician: César Perkins Consult reason: Tachycardia Chief complaint: Tachycardia History of present illness: Mr. Huddleston is a 72 year old male who recently underwent left hip revision. Persistent tachycardia noted since surgery. Patient given IV fluids, blood transfusion. Heart rate remains 120. Device interrogation demonstrated no arrhythmias, currently atrial sensed and V paced. Upon my evaluation, patient denies any distress. No chest pain or discomfort. No palpitations. Past Med Surg Social Fam HX - Past Medical History Medical history: atrial fibrillation (On Coumadin), CHF (Diastolic), COPD (Not oxygen dependent), coronary artery disease (With history of CABG), CVA, DVT, diabetes (Not insulin-dependent), GERD, hypertension, myocardial infarction, syncope, other (Acute renal failure Ammann left hip infection with pansensitive pseudomonas, DVT, PTSD, neuropathy, hypothyroidism, depression) Psychiatric history: anxiety, PTSD - Past Surgical History Surgical History: appendectomy, carotid endarterectomy, coronary bypass (CABG), hip replacement, LE stent(s) (Femoral bypass), orthopedic, other, vascular surgery, pacemaker - Social History Smoking Status: Former smoker Smokeless Tobacco Status: No Alcohol use: none Drug use: none - Family History Father Living Status: Hx Family Cardiac Disorders: Yes Hx Family Cancer: Yes Medications and Allergies GlipiZIDE [Glucotrol] 7.5 mg PO BID 04/13/15 [History] Atorvastatin [Lipitor] 10 mg PO HS 10/16/15 [History] Albuterol Sulfate [Albuterol Inhaler] 2 puff IH QID PRN 06/01/17 [History] Cholecalciferol (Vitamin D3) [Vitamin D3] 2,000 unit PO DAILY 06/01/17 [History] Sertraline [Zoloft] 100 mg PO QPM 06/01/17 [History] Warfarin [Coumadin] 2 mg PO TH 06/01/17 [History] Warfarin [Coumadin] 4 mg PO [id number] 06/01/17 [History] amLODIPine [Norvasc] 5 mg PO DAILY 06/01/17 [History] Polyethylene Glycol 3350 [MiraLAX] 17 gm PO DAILY PRN 06/03/17 [History] Tiotropium [Spiriva] 18 mcg IH 0700 06/03/17 [History] Travoprost [Travatan Z] 1 drop BOTH EYES HS 06/03/17 [History] traZODone [TraZODone] 50 mg PO HS PRN 06/03/17 [History] Ipratropium/Albuterol Neb [Duoneb] 3 ml IH QID PRN #1 06/06/17 [Rx] Clopidogrel [Plavix] 75 mg PO DAILY 06/19/17 [History] Ferrous Sulfate [Iron] 325 mg PO BID 06/19/17 [History] Levothyroxine [Synthroid] 50 mcg PO 0630 06/19/17 [History] MOM Conc [MILK OF MAGNESIA conc] 30 ml PO HS PRN 06/19/17 [History] Pregabalin [Lyrica] 150 mg PO TID 06/19/17 [History] Sennosides/Docusate Sodium [Senna-Docusate Sodium Tablet] 2 tab PO BID PRN 06/19 [History] Saccharomyces Boulardii [Florastor] 250 mg PO BID #60 capsule 06/22/17 [Rx] Losartan Potassium [Cozaar] 100 mg PO DAILY 06/24/17 [History] Metformin HCl [Glucophage] 1,000 mg PO BID 06/24/17 [History] OxyCODONE Immed Rel [Roxicodone 5 MG] 5 - 10 mg PO Q4H PRN 10/25/17 [History] Oxycodone HCl 20 mg PO Q12H 06/24/17 [History] Potassium Chloride [Klor-Con Sprinkle] 10 meq PO DAILY 06/24/17 [History] Furosemide [Lasix] 20 mg PO DAILY #30 tablet 06/29/17 [Rx] Levofloxacin 750 MG/150 ML [Levaquin Premix 750mg/150 mL] 750 mg IVPB DAILY #30 bag 06/29/17 [Rx] Metoprolol [Lopressor] 25 mg PO BID #60 tablet 06/29/17 [Rx] 3 Allergy/AdvReac Type Severity Reaction Status Date / Time azithromycin Allergy See Verified 06/19/17 09:01 Comments ceftriaxone Allergy See Verified 06/19/17 09:01 Comments morphine Allergy See Verified 06/19/17 09:01 Comments sulfamethoxazole AdvReac See Verified 06/19/17 09:01 [From Bactrim] Comments trimethoprim [From Bactrim] AdvReac See Verified 06/19/17 09:01 Comments All Systems Review: A 10-system review of systems was performed and is negative for pertinent findings except as documented above in the HPI. - Cardiovascular Cardiovascular: as per HPI - Musculoskeletal Musculoskeletal: other (Postoperative hip surgery.) Physical Examination Vital Signs, Last 4 Hours Temp Pulse Resp BP Pulse Ox 07/05/17 11:23 97.8 F 125 17 103/77 98 General: Conversant, No Apparent Distress HEENT: Atraumatic, Normocephaly, Mucus Membranes Moist Neck: No JVD, Normal carotid pulses Cardiac: Reg Rate and Rhythm, Normal S1 and S2, No Murmur Lungs: Normal Breath Sounds, No Wheeze, Rales, Rhonchi Neuro: Alert and responsive, No focal deficits noted Abdomen: Soft, Non-Tender Skin: No rashes noted on visualized skin Musculoskeletal: No Chest Wall Tenderness Extremities: No Clubbing, No Cyanosis, No Edema Results 07/05/17 08:44 07/05/17 03:15 Lab Results 07/04/17 07/04/17 07/04/17 02:59 16:26 16:26 WBC Hgb 8.3 L Hct 25.4 L Plt Count INR Sodium Potassium Chloride Carbon Dioxide BUN Creatinine Glucose Calcium Magnesium 1.3 L 2.1 07/05/17 07/05/17 07/05/17 03:15 03:15 03:15 WBC 9.8 Hgb 8.2 L Hct 25.8 L Plt Count 200 INR 1.8 Sodium 137 Potassium 3.8 Chloride 107 Carbon Dioxide 24 BUN 14 Creatinine 1.01 Glucose 139 H Calcium 7.9 L Magnesium 1.8 07/05/17 08:44 WBC Hgb 8.8 L Hct 26.9 L Plt Count INR Sodium Potassium Chloride Carbon Dioxide BUN Creatinine Glucose Calcium Magnesium - Imaging and Cardiology Echo: report reviewed, other (TTE 06/20/2017: LVEF 55-60%. Dilated right ventricle with moderate hypokinesis. Moderate right atrial enlargement. Moderate pulmonary hypertension.) Cardiac cath: report reviewed, other ([facility] 10/18/2015: LVEF 45%. 2 patent bypass graft. Severe [place] CAD. Medical therapy recommended.) - EKG Interpretation EKG results cardiology: personally reviewed Consult Discharge Plan - Plan Referrals: [facility] [Primary Care Provider] -
[2017-07-05] MEDS ORDERED: Magnesium Sulfate 1 GM in 0.9 % Sodium Chloride 50 ML IVPB ONE (11:56)
--- NOTE | 2017-07-05 12:06 | Orthopedics Progress Note ---
Date of Encounter: 07/05/17 Time of Encounter: 12:05 Subjective Interval history: S: Patient is seen and evaluated this morning. Pain well controlled. Transferred to due to atrial fibrillation. O: AFVSS Left hip with post op dressing. Mild spotting GET drain with small amount of bloody output. A: Post left hip revision with placement of constrained liner. P: Resume post op care Anticipate discharge back to [place] Objective Vital signs: Vital Signs Temp Pulse Resp BP Pulse Ox 07/05/17 11:23 97.8 F 125 17 103/77 98 07/05/17 07:24 97.5 F L 126 16 109/84 91 07/05/17 06:00 122 109/82 07/05/17 05:00 123 112/75 07/05/17 04:00 121 106/80 07/05/17 03:00 124 103/76 07/05/17 02:00 124 113/82 07/05/17 01:45 EDT 126 111/73 07/05/17 01:15 EDT 126 97/71 07/05/17 00:45 127 106/70 07/05/17 00:30 125 107/72 07/05/17 00:15 126 111/70 07/04/17 23:55 124 100/70 07/04/17 23:50 125 100/70 07/04/17 23:45 126 105/69 07/04/17 23:30 98.0 F 127 12 108/73 88 07/04/17 20:00 97.7 F 82 14 125/68 91 07/04/17 15:57 97.4 F L 129 16 113/75 95 Intake and Output 07/05/17 07/05/17 07/05/17 00:59 07:59 15:59 Intake Total 1360 / 1360 Output Total 50 / 50 Balance 1310 / 1310 Intake: IV Fluids 1000 / 1000 Lactated Ringers 1,000 ML @ 75 1000 / 1000 mls/hr IVC .[id number] PHILLY Rx#: [id number] Oral 360 / 360 Output: Urine Wound Drainage 50 / 50 Left Thigh 50 / 50 Other: Meal Breakfast Percent of Meal Consumed 50% Blood Glucose* 153 - Labs CBC & BMP: 07/05/17 08:44 07/05/17 03:15 Labs: Abnormal lab results RBC 2.73 M/mcL (4.19-5.50) L 07/05/17 03:15 Hgb 8.8 g/dL (12.9-16.9) L 07/05/17 08:44 Hct 26.9 % (37.5-50.1) L 07/05/17 08:44 RDW 17.2 % (11.5-14.5) H 07/05/17 03:15 ESR 41 mm/hr (0-10) H 07/03/17 09:55 PT 19.2 Seconds (9.4-12.1) H 07/05/17 03:15 APTT 36.9 Seconds (26.0-36.0) H 07/02/17 18:44 Glucose 139 mg/dL (70-99) H 07/05/17 03:15 POC Glucose 133 (58-89) H 07/04/17 22:00 Calcium 7.9 mg/dL (8.6-10.8) L 07/05/17 03:15 Iron 36 mcg/dL (65-175) L 07/04/17 02:59 % Saturation 16 % (20-55) L 07/04/17 02:59 Transferrin 162 mg/dL (174-364) L 07/04/17 02:59 C-Reactive Protein 62 mg/L (Less than 5) H 07/03/17 09:55 Serum Total Protein 5.4 g/dL (6.0-8.3) L D 07/03/17 19:06 Albumin 2.6 g/dL (3.5-5.0) L 07/05/17 03:15 Albumin/Globulin Ratio 0.8 (1.1-2.2) L 07/03/17 19:06 - VTE Documentation of Mechanical Device: Intermittent pneumatic compression device Consult Discharge Plan - Plan Referrals: [facility] [Primary Care Provider] -
[2017-07-05 15:46] LABS: Hematocrit 24.8 % (37.5-50.1)
[2017-07-05] MEDS: Cefepime HCl 2,000 MG in Water for inj. (sterile) 20 ML IVP SCH (17:42)
[2017-07-05] MEDS: Latanoprost 2.5 ML BOTTLE BOTH EYES SCH (20:32)
[2017-07-06 04:32] LABS: Hematocrit 26.9 % (37.5-50.1); Hemoglobin 8.6 g/dL (12.9-16.9)
[2017-07-06 04:40] LABS: INR 1.3; Prothrombin Time 14.4 Seconds (9.4-12.1)
[2017-07-06] MEDS: Cefepime HCl 2,000 MG in Water for inj. (sterile) 20 ML IVP SCH ×2 (06:15→17:35)
[2017-07-06] MEDS: Ringers Solution, Lactated 1,000 ML IVC SCH ×3 (06:16→14:54)
[2017-07-06] MEDS: Multivit/Ca/Min/Fe/FA 1 TAB TABLET PO SCH (08:21)
[2017-07-06] MEDS: Insulin LISPRO 300 UNITS/3 ML VIAL SQ SCH ×3 (08:21→16:31)
[2017-07-06] MEDS: Lactobacillus 1 EACH CAP.SPRINK PO SCH ×2 (08:21→20:35)
[2017-07-06] MEDS: Sennosides 8.6 MG TABLET PO SCH (08:22)
[2017-07-06] MEDS: Ascorbic Acid 500 MG TABLET PO SCH ×2 (08:22→17:35)
[2017-07-06] MEDS: Cholecalciferol (D-3) 1,000 UNIT TABLET PO SCH (08:23)
[2017-07-06] MEDS: Pregabalin 75 MG CAPSULE PO SCH ×3 (08:23→20:35)
--- NOTE | 2017-07-06 08:52 | Cardiology Progress Note ---
Date of Encounter: 07/06/17 Time of Encounter: 08:30 Assessment and Plan (1) CAD in [place] artery Current Visit: Yes Status: Acute Per cardiology: -CAD, prior CABG. -[facility] performed 2015, medical therapy recommended. -No chest pain reported. -Recommend continue statin, metoprolol therapy. -Ideally, should be on aspirin therapy for secondary prevention. -Recommend ASA once ok from orthopedic services. (2) Tachycardia Current Visit: Yes Status: Acute Per cardiology: -Tachycardia noted yesterday. -Average HR previous 12 hours noted to be 63, sinus rhythm with intermittent pacing. -Device interrogation does not demonstrate any arrhythmias. -Device seems to be tracking atrial activity. -Recommend continue to treat with supportive care, including fluids, pain control, PRBCs as needed. -Cardiology will sign off. Recommend patient follow with primary chemical etch operator at [facility]. -Okay to titrate beta cyn as needed. Discussion w patient/family: The assessment and plan as outlined above was discussed with the patient who expressed understanding and agreement. All questions were answered. Thank you for involving us in the care of your patient. Please call with any questions. Discussed and reviewed with . Subjective Principal diagnosis: Hip prosthesis dislocation Interval history: Patient reports he feels better this morning. Denies chest pain or increased shortness of breath. Objective Vital Signs, Last 4 Hours Pulse Resp BP Pulse Ox 07/06/17 08:17 73 16 135/75 99 07/06/17 08:00 80 General: Conversant, No Apparent Distress HEENT: Atraumatic, Normocephaly, Mucus Membranes Moist Neck: No JVD, Normal carotid pulses Cardiac: Reg Rate and Rhythm, Normal S1 and S2, No Murmur Lungs: Normal Breath Sounds, No Wheeze, Rales, Rhonchi Neuro: Alert and responsive, No focal deficits noted Abdomen: Soft, Non-Tender Skin: No rashes noted on visualized skin Musculoskeletal: No Chest Wall Tenderness, Other (Left hip dressing noted. ) Extremities: No Clubbing, No Cyanosis, No Edema, Normal Pulses Results 07/06/17 04:03 07/05/17 03:15 Lab Results Active Medications Acetaminophen (Tylenol) 650 mg PO Q6HR PRN PRN Reason: Mild Pain (1-3) Stop: 01/01/18 21:30 Ascorbic Acid (Vitamin C) 500 mg PO BIDWM [facility] Stop: 01/02/18 17:01 Last Admin: 07/06/17 08:22 Dose: 500 mg Atorvastatin Calcium (Lipitor) 10 mg PO HS [facility] Stop: 01/01/18 21:01 Last Admin: 07/05/17 20:32 Dose: 10 mg Dextrose/Water (Dextrose 50% (Syg)) 25 ml IVP AD PRN PRN Reason: Hypoglycemia Stop: 01/01/18 21:34 Docusate Sodium (Colace) 100 mg PO BID PRN PRN Reason: Constipation Stop: 01/01/18 16:57 Docusate Sodium (Colace) 100 mg PO BID [facility] PRN Reason: Protocol Stop: 01/02/18 21:01 Last Admin: 07/06/17 08:22 Dose: 100 mg Ferrous Sulfate (Ferrous Sulfate) 325 mg PO BIDWM [facility] Stop: 01/02/18 17:01 Last Admin: 07/06/17 08:21 Dose: 325 mg Glucagon (Glucagen) 1 mg IM ONCE PRN PRN Reason: Hypoglycemia Stop: 01/01/18 21:34 Glucose (Gluctose) 15 gm PO ONCE PRN PRN Reason: Hypoglycemia Stop: 01/01/18 21:34 Glucose (Gluctose) 30 gm PO ONCE PRN PRN Reason: Hypoglycemia Stop: 01/01/18 21:34 Hydromorphone HCl (Dilaudid) 0.5 mg IVP Q4HR PRN PRN Reason: Severe Pain (7-10) Stop: 01/01/18 16:57 Dextrose (Dextrose 5%) 1,000 mls @ 100 mls/hr IVC .Q10H PRN PRN Reason: HYPOGLYCEMIA Stop: 01/01/18 21:34 Lactated Ringer's (Lactated Ringers) 1,000 mls @ 75 mls/hr IVC .[id number] [facility] Stop: 01/01/18 17:46 Last Admin: 07/06/17 06:16 Dose: 75 mls/hr Lactated Ringer's (Lactated Ringers) 1,000 mls @ 75 mls/hr IVC .[id number] [facility] Stop: 01/02/18 16:52 Last Admin: 07/06/17 06:28 Dose: Not Given Cefepime HCl 2,000 mg/ Sterile (Water) 20 mls @ 300 mls/hr IVP Q12HR [facility] Stop: 01/04/18 18:01 Last Admin: 07/06/17 06:15 Dose: 300 mls/hr Insulin Human Lispro (Humalog) 0 units SQ TIDAC [facility] PRN Reason: Protocol Stop: 01/02/18 07:31 Last Admin: 07/06/17 08:21 Dose: Not Given Lactobacillus Acidophilus/Rhamnosus (Culturelle) 1 each PO BID [facility] Stop: 01/02/18 09:01 Last Admin: 07/06/17 08:21 Dose: 1 each Latanoprost (Xalatan) 1 drop BOTH EYES HS [facility] Stop: 01/02/18 21:01 Last Admin: 07/05/17 20:32 Dose: 1 drop Levothyroxine Sodium (Synthroid) 50 mcg PO 0630 [facility] Stop: 01/02/18 06:31 Last Admin: 07/06/17 06:15 Dose: 50 mcg Magnesium Hydroxide (Milk Of Magnesia Conc) 5 ml PO HS PRN PRN Reason: Constipation Stop: 01/02/18 16:52 Metoprolol Tartrate (Lopressor) 25 mg PO BID [facility] Stop: 01/03/18 05:21 Last Admin: 07/06/17 08:22 Dose: 25 mg Multivitamins/Calcium (Thera M Plus) 1 tab PO DAILY [facility] PRN Reason: Protocol Stop: 01/03/18 09:01 Last Admin: 07/06/17 08:21 Dose: 1 tab Naloxone HCl (Narcan) 0.4 mg IVP Q2MIN PRN PRN Reason: Opioid Reversal Stop: 01/01/18 16:57 Naloxone HCl (Narcan) 0.4 mg IVP Q2MIN PRN PRN Reason: SEE COMMENTS Stop: 01/02/18 16:52 Omeprazole (Prilosec) 20 mg PO DAILY@0630 [facility] PRN Reason: Protocol Stop: 01/02/18 06:31 Last Admin: 07/06/17 06:15 Dose: 20 mg Ondansetron HCl (Zofran) 4 mg IVP Q6HR PRN PRN Reason: Nausea And Vomiting Stop: 01/02/18 16:52 Oxycodone HCl (Oxycontin) 20 mg PO Q12H [facility] Stop: 01/01/18 21:31 Last Admin: 07/05/17 20:32 Dose: Not Given Oxycodone HCl (Roxicodone) 5 mg PO Q4H PRN PRN Reason: moderate pain Stop: 01/01/18 21:26 Pregabalin (Lyrica) 150 mg PO TID [facility] Stop: 01/02/18 09:01 Last Admin: 07/06/17 08:23 Dose: 150 mg Senna (Senna) 17.2 mg PO DAILY [facility] Stop: 01/03/18 09:01 Last Admin: 07/06/17 08:22 Dose: 17.2 mg Sertraline HCl (Zoloft) 100 mg PO QPM [facility] Stop: 01/02/18 18:01 Last Admin: 07/05/17 17:42 Dose: Not Given Trazodone HCl (Trazodone) 50 mg PO HS PRN PRN Reason: Sleep Stop: 01/01/18 21:26 Vitamin D (Vitamin D) 1,000 unit PO DAILY [facility] Stop: 01/02/18 09:01 Last Admin: 07/06/17 08:23 Dose: 1,000 unit Laboratory Tests 07/05/17 07/06/17 03:15 04:03 Hgb 8.6 L Creatinine 1.01 - EKG Interpretation EKG results cardiology: other (Telemetry reviewed with average HR previous 12 hours noted to be 63, sinus rhythm with intermittent paced rhythm. PVCs noted.) - VTE Documentation of Mechanical Device: Intermittent pneumatic compression device Consult Discharge Plan - Plan [facility]errals: [facility] [Primary Care Provider] -
--- NOTE | 2017-07-06 09:56 | Orthopedics Progress Note ---
Date of Encounter: 07/06/17 Time of Encounter: 09:55 - Assessment and Plan (1) Status post total hip replacement, left Current Visit: No Status: Acute Procedure: Left hip irrigation debridement revision of acetabulum 07/03/17 - Cultures NEGATIVE to date Cardiology signed off this AM - patient in stable condition. POD#3 Vitals Stable, labs stable. LLE: Drain in place - approx 10 cc of bloody drainage - last emptied approx 1.5 hours ago by nursing staff. Incision c/d/i - Zipline and anahi in place. No erythema or drainage from incision noted. Knee immobilizer and Hip abduction pillow in place. Minimal swelling. No calf tenderness. ROM limited. NV intact distally. Plan: Continue with dressing changes BID - cleanse wound, 4x4, ABD and Medipore tape. Empty drain pump as needed if filled. WBAT. In knee immobilizer during ambulation. Continue both braces while supine in bed. Plan to pull drain tomorrow. Continue IV antibiotics x 4-6 weeks. (2) Dislocation of internal left hip prosthesis, subsequent encounter Current Visit: No Status: Acute Subjective Principal diagnosis: Hip prosthesis dislocation Interval history: Procedure: Left hip irrigation debridement revision of acetabulum 07/03/17 - - Cultures Negative to date. Cardiology consult and on board - managing tachycardia. Signed off this AM with patient in stable condition. Vitals Stable, labs stable. LLE: Drain in place - approx 10 cc of bloody drainage - last emptied approx 1.5 hours ago by nursing staff. Incision c/d/i - Zipline and anahi in place. No erythema or drainage from incision noted. Knee immobilizer and Hip abduction pillow in place. Minimal swelling. No calf tenderness. ROM limited. NV intact distally. Objective Vital signs: Vital Signs Temp Pulse Resp BP Pulse Ox 07/06/17 08:17 73 16 135/75 99 07/06/17 08:00 97.6 F 70 12 140/79 100 07/06/17 02:14 97.3 F L 73 18 126/68 94 07/05/17 23:30 60 07/05/17 23:26 97.8 F 59 18 132/66 98 07/05/17 20:30 60 07/05/17 19:16 98.3 F 60 18 119/63 95 07/05/17 16:24 97.4 F L 63 16 110/73 96 07/05/17 12:12 126 103/70 07/05/17 11:23 97.8 F 125 17 103/77 98 07/05/17 11:20 124 102/75 07/05/17 10:20 122 125/85 Intake and Output 07/05/17 07/06/17 07/06/17 23:59 07:59 15:59 Intake Total 1000 / 1000 120 / 120 Output Total 535 / 535 Balance 0 / 0 465 / 465 120 / 120 Intake: IV Fluids 1000 / 1000 Lactated Ringers 1,000 ML @ 75 1000 / 1000 mls/hr IVC .[id number] [facility] Rx#: [id number] Maxipime 2,000 MG In Water for inj. (sterile) 20 ML @ 300 mls/ hr IVP Q12HR [facility] Rx#:[id number] Oral 120 / 120 Output: Urine 500 / 500 Wound Drainage Left Thigh Other: Meal Breakfast Percent of Meal Consumed 5% Weight 76.1 kg Blood Glucose* 146 137 Patient Weight 07/06/17 23:59 Weight 76.1 kg - Labs CBC & BMP: 07/06/17 04:03 07/05/17 03:15 Labs: Abnormal lab results RBC 2.73 M/mcL (4.19-5.50) L 07/05/17 03:15 Hgb 8.6 g/dL (12.9-16.9) L 07/06/17 04:03 Hct 26.9 % (37.5-50.1) L 07/06/17 04:03 RDW 17.2 % (11.5-14.5) H 07/05/17 03:15 ESR 41 mm/hr (0-10) H 07/03/17 09:55 PT 14.4 Seconds (9.4-12.1) H 07/06/17 04:03 APTT 36.9 Seconds (26.0-36.0) H 07/02/17 18:44 Glucose 139 mg/dL (70-99) H 07/05/17 03:15 POC Glucose 146 (58-89) H 07/05/17 20:50 Calcium 7.9 mg/dL (8.6-10.8) L 07/05/17 03:15 Iron 36 mcg/dL (65-175) L 07/04/17 02:59 % Saturation 16 % (20-55) L 07/04/17 02:59 Transferrin 162 mg/dL (174-364) L 07/04/17 02:59 C-Reactive Protein 62 mg/L (Less than 5) H 07/03/17 09:55 Serum Total Protein 5.4 g/dL (6.0-8.3) L D 07/03/17 19:06 Albumin 2.6 g/dL (3.5-5.0) L 07/05/17 03:15 Albumin/Globulin Ratio 0.8 (1.1-2.2) L 07/03/17 19:06 - VTE Documentation of Mechanical Device: Intermittent pneumatic compression device Consult Discharge Plan - Plan [facility]errals: [facility] [Primary Care Provider] - (PATIENT IS HOME BASE CARE WHICH MEANS THEY WILL COME TO SEE PATIENT AT HIS HOME. CALL [facility] WHEN YOU ARE DISCHARGED SO THEY CAN COME AND SEE YOU.) Chirag Izquierdo, DO [Partnered Physician] - (OFFICE WILL CALL PATIENT AT HOME WITH FOLLOW UP APPOINTMENT)
[2017-07-06] MEDS: *HR* OxyCODONE ER (12 HR) 20 MG TABLET PO SCH ×2 (10:17→20:36)
--- NOTE | 2017-07-06 15:11 | Internal Med Progress Note ---
Date of Encounter: 07/06/17 Time of Encounter: 14:30 - Assessment and plan (1) COPD (chronic obstructive pulmonary disease) Current Visit: No Status: Chronic Qualifiers: COPD type: chronic bronchitis Chronic bronchitis type: simple Qualified Code(s): J41.0 - Simple chronic bronchitis (2) Atrial fibrillation Current Visit: No Status: Chronic Qualifiers: Atrial fibrillation type: paroxysmal Qualified Code(s): I48.0 - Paroxysmal atrial fibrillation (3) Anemia Current Visit: Yes Status: Acute Qualifiers: Anemia type: other cause Other causes of anemia: other cause, not classified Qualified Code(s): D64.89 - Other specified anemias (4) Diabetes Current Visit: No Status: Chronic Qualifiers: Diabetes mellitus type: type 2 Diabetes mellitus complication status: with hyperglycemia Diabetes mellitus manager intermediate insulin use: without long-term use Qualified Code(s): E11.65 - Type 2 diabetes mellitus with hyperglycemia (5) Hypomagnesemia Current Visit: No Status: Acute (6) Hypoalbuminemia Current Visit: Yes Status: Acute (7) Wound infection Current Visit: Yes Status: Acute (8) Volume overload Current Visit: Yes Status: Acute Qualifiers: Hypervolemia type: other Qualified Code(s): E87.79 - Other fluid overload - Time Spent With Patient His A. fib was rate controlled, signs of fluid overload, discontinue IV fluid and give Lasix 20 mg IV every 12 hours 3 doses and reassess, close monitoring of H&H, and he can get a stool for occult blood, keep Hemoglobin more than 8. Okay to transfer patient to telemetry. ID to evaluate for evaluation for duration of IV antibiotic infusion. Plan discussed with patient and family at bedside, counseling about nutrition high protein diet, counseling about deep breathing. Or culture reviewed 25 - 35 minutes - Subjective Interval history: Patient is feeling better today, no palpitation but but he is congested. Patient denies any chest pain. Patient denies any cough - Constitutional Vitals: Temp Pulse Resp BP Pulse Ox 97.9 F 73 16 135/75 99 07/06/17 12:06 07/06/17 15:06 07/06/17 15:06 07/06/17 15:06 07/06/17 15:06 General appearance: Present: no acute distress - Head Head exam: Present: atraumatic, normocephalic - Respiratory Respiratory exam: Present: decreased breath sounds, prolonged expiratory phase, rales, rhonchi, wheezes. Absent: accessory muscle use - Cardiovascular Cardiovascular exam: Present: irregular rhythm, +S1, +S2. Absent: diastolic murmur, gallop, rubs, systolic murmur - GI/Abdominal GI/Abdominal exam: Present: normal bowel sounds, soft, no peritoneal signs. Absent: distended, tenderness - Extremities Exam Extremities exam: Present: pedal edema, warm. Absent: calf tenderness, cyanotic - Neurological Exam Neurological exam: Present: no focal deficits. Absent: pronater drift, facial droop, speech deficit Internal Medicine: Result - Labs CBC & Chem 7: 07/06/17 04:03 07/05/17 03:15 Labs: Short CBC 07/05/17 07/06/17 Range/Units 15:40 04:03 Hgb 8.0 L 8.6 L (12.9-16.9) g/dL Hct 24.8 L 26.9 L (37.5-50.1) % - ABG Interpretation ABG results: PT/INR, D-dimer PT 14.4 Seconds (9.4-12.1) H 07/06/17 04:03 - VTE Documentation of Mechanical Device: Intermittent pneumatic compression device Consult Discharge Plan - Plan [facility]errals: [facility] [Primary Care Provider] - (PATIENT IS HOME BASE CARE WHICH MEANS THEY WILL COME TO SEE PATIENT AT HIS HOME. CALL [facility] WHEN YOU ARE DISCHARGED SO THEY CAN COME AND SEE YOU.) Chirag Izquierdo DO [Partnered Physician] - (OFFICE WILL CALL PATIENT AT HOME WITH FOLLOW UP APPOINTMENT)
[2017-07-06] MEDS: Lactulose Oral Soln 20 GM/30 ML UDC PO SCH ×2 (16:27→20:35)
[2017-07-06] MEDS: Furosemide 20 MG/2 ML VIAL IVP SCH (20:35)
[2017-07-06] MEDS: Latanoprost 2.5 ML BOTTLE BOTH EYES SCH (20:36)
[2017-07-07] MEDS: Cefepime HCl 1,000 MG in Water for inj. (sterile) 10 ML IVP SCH ×2 (06:30→17:08)
[2017-07-07 06:36] LABS: INR 1.4; Prothrombin Time 14.8 Seconds (9.4-12.1)
--- NOTE | 2017-07-07 06:42 | Orthopedics Progress Note ---
Date of Encounter: 07/07/17 Time of Encounter: 06:41 Subjective Principal diagnosis: Hip prosthesis dislocation Interval history: Patient was seen this morning doing well without complaints. Afebrile vital signs stable. Operative extremity: Neurovascularly intact Dressing clean dry and intact Calves nontender Assessment and plan: Continue with postoperative care Patient doing well draining DC'd recommend transfer to orthopedic floor Objective Vital signs: Vital Signs Temp Pulse Resp BP Pulse Ox 07/07/17 05:28 68 14 93 07/07/17 04:18 97.9 F 73 14 121/66 93 07/07/17 00:17 97.6 F 79 16 140/78 98 07/07/17 00:06 64 16 98 07/06/17 21:23 68 14 98 07/06/17 20:23 97.6 F 86 14 134/80 98 07/06/17 16:23 97.4 F L 65 18 126/68 92 07/06/17 12:06 97.9 F 75 18 141/95 91 07/06/17 08:00 97.6 F 70 12 140/79 100 Intake and Output 07/06/17 07/06/17 07/07/17 15:59 23:59 07:59 Intake Total 1360 / 1360 0 / 0 Output Total 70 / 70 45 / 45 625 / 625 Balance 1290 / 1290 -45 / -45 -625 / -625 Intake: IV Fluids 1000 / 1000 Lactated Ringers 1,000 ML @ 75 1000 / 1000 mls/hr IVC .[id number] [facility] Rx#: [id number] Oral 360 / 360 0 / 0 Output: Urine 600 / 600 Wound Drainage 70 / 70 45 / 45 25 / 25 Left Thigh 70 / 70 45 / 45 25 / 25 Other: Meal Lunch Percent of Meal Consumed 5% Stool Size Large Stool Consistency formed Stool Color Brown # Voids 1 Weight 76.4 kg Blood Glucose* 204 188 Patient Weight 07/07/17 23:59 Weight 76.4 kg - Labs CBC & BMP: 07/06/17 04:03 07/05/17 03:15 Labs: Abnormal lab results RBC 2.73 M/mcL (4.19-5.50) L 07/05/17 03:15 Hgb 8.6 g/dL (12.9-16.9) L 07/06/17 04:03 Hct 26.9 % (37.5-50.1) L 07/06/17 04:03 RDW 17.2 % (11.5-14.5) H 07/05/17 03:15 ESR 41 mm/hr (0-10) H 07/03/17 09:55 PT 14.4 Seconds (9.4-12.1) H 07/06/17 04:03 APTT 36.9 Seconds (26.0-36.0) H 07/02/17 18:44 Glucose 139 mg/dL (70-99) H 07/05/17 03:15 POC Glucose 188 (58-89) H 07/06/17 20:55 Calcium 7.9 mg/dL (8.6-10.8) L 07/05/17 03:15 Iron 36 mcg/dL (65-175) L 07/04/17 02:59 % Saturation 16 % (20-55) L 07/04/17 02:59 Transferrin 162 mg/dL (174-364) L 07/04/17 02:59 C-Reactive Protein 62 mg/L (Less than 5) H 07/03/17 09:55 Serum Total Protein 5.4 g/dL (6.0-8.3) L D 07/03/17 19:06 Albumin 2.6 g/dL (3.5-5.0) L 07/05/17 03:15 Albumin/Globulin Ratio 0.8 (1.1-2.2) L 07/03/17 19:06 - VTE Documentation of Mechanical Device: Intermittent pneumatic compression device Consult Discharge Plan - Plan Referrals: [facility] [Primary Care Provider] - (PATIENT IS HOME BASE CARE WHICH MEANS THEY WILL COME TO SEE PATIENT AT HIS HOME. CALL [facility] WHEN YOU ARE DISCHARGED SO THEY CAN COME AND SEE YOU.) Chirag Izquierdo, [Partnered Physician] - (OFFICE WILL CALL PATIENT AT HOME WITH FOLLOW UP APPOINTMENT)
[2017-07-07] MEDS: Furosemide 20 MG/2 ML VIAL IVP SCH ×2 (08:50→19:36)
[2017-07-07] MEDS: Ascorbic Acid 500 MG TABLET PO SCH ×2 (08:50→17:08)
[2017-07-07] MEDS: Sennosides 8.6 MG TABLET PO SCH (08:50)
[2017-07-07] MEDS: Pregabalin 75 MG CAPSULE PO SCH ×3 (08:51→19:36)
[2017-07-07] MEDS: Multivit/Ca/Min/Fe/FA 1 TAB TABLET PO SCH (08:51)
[2017-07-07] MEDS: Cholecalciferol (D-3) 1,000 UNIT TABLET PO SCH (08:51)
[2017-07-07] MEDS: Lactobacillus 1 EACH CAP.SPRINK PO SCH ×2 (08:51→19:36)
[2017-07-07] MEDS: Insulin LISPRO 300 UNITS/3 ML VIAL SQ SCH ×3 (08:52→17:10)
[2017-07-07] MEDS: Lactulose Oral Soln 20 GM/30 ML UDC PO SCH ×2 (08:52→19:36)
[2017-07-07] MEDS: *HR* OxyCODONE ER (12 HR) 20 MG TABLET PO SCH ×2 (08:52→19:37)
[2017-07-07] MEDS ORDERED: Warfarin perPT PO PRN (15:58)
[2017-07-07] MEDS ORDERED: *HR* Warfarin 4 MG TABLET PO ONE (18:00)
[2017-07-07] MEDS: Latanoprost 2.5 ML BOTTLE BOTH EYES SCH (20:00)
--- NOTE | 2017-07-07 21:05 | Internal Med Progress Note ---
Date of Encounter: 07/07/17 Time of Encounter: 14:00 - Assessment and plan (1) COPD (chronic obstructive pulmonary disease) Current Visit: No Status: Chronic Assessment and plan: Stable Qualifiers: COPD type: chronic bronchitis Chronic bronchitis type: simple Qualified Code(s): J41.0 - Simple chronic bronchitis (2) Anticoagulant long-term use Current Visit: No Status: Chronic Assessment and plan: We will resume Coumadin. No bridging necessary. Discussed with orthopedics, and agreement. (3) Atrial fibrillation Current Visit: No Status: Chronic Assessment and plan: No right control. Continue with oral metoprolol. Qualifiers: Atrial fibrillation type: paroxysmal Qualified Code(s): I48.0 - Paroxysmal atrial fibrillation (4) Status post total hip replacement, left Current Visit: No Status: Acute (5) Wound infection Current Visit: Yes Status: Acute Assessment and plan: Recent wound culture before surgery was positive for Pseudomonas, continue with cefepime. Follow-up blood cultures. (6) Anemia Current Visit: No Status: Chronic Assessment and plan: Check hemoglobin and hematocrit in the morning. Transfuse if hemoglobin less than 7.0. Qualifiers: Anemia type: unspecified type Qualified Code(s): D64.9 - Anemia, unspecified - Subjective Interval history: Patient reports no pain at rest, mild left hip pain with mobilization. States that after the surgery his left hip pain has resolved. - Constitutional Vitals: Temp Pulse Resp BP Pulse Ox 97.8 F 55 14 149/72 93 07/07/17 18:13 07/07/17 18:13 07/07/17 18:13 07/07/17 18:13 07/07/17 18:13 General appearance: Present: no acute distress - Respiratory Respiratory exam: Present: CTAB. Absent: accessory muscle use, rales, rhonchi, wheezes - Cardiovascular Cardiovascular exam: Present: irregular rhythm, +S1, +S2. Absent: diastolic murmur, gallop, rubs, systolic murmur - GI/Abdominal GI/Abdominal exam: Present: normal bowel sounds, soft, no peritoneal signs. Absent: distended, tenderness - Extremities Exam Extremities exam: Present: warm, radial pulses palpable and symmetrical. Absent : calf tenderness, cyanotic, pedal edema Additional comments: Left hip covered with dressing. Clean dry and intact. - Skin Skin exam: Present: dry, intact Internal Medicine: Result - Labs CBC & Chem 7: 07/06/17 04:03 07/05/17 03:15 - ABG Interpretation ABG results: PT/INR, D-dimer PT 14.8 Seconds (9.4-12.1) H 07/07/17 06:23 - Impressions Impressions Hip X-Ray 07/07/17 13:01 IMPRESSION: Interval removal of the drain within the left hip. Otherwise stable appearance of the left hip status post total hip arthroplasty. D/ / Kolton Jolly MD / Kolton Jolly MD Interpreting Provider: Kolton Jolly MD - VTE Documentation of Mechanical Device: Intermittent pneumatic compression device Consult Discharge Plan - Plan Referrals: [facility] [Primary Care Provider] - (PATIENT IS HOME BASE CARE WHICH MEANS THEY WILL COME TO SEE PATIENT AT HIS HOME. CALL [facility] WHEN YOU ARE DISCHARGED SO THEY CAN COME AND SEE YOU.) Chirag Izquierdo DO [Partnered Physician] - (OFFICE WILL CALL PATIENT AT HOME WITH FOLLOW UP APPOINTMENT)
--- NOTE | 2017-07-07 21:26 | Electrocardiograph Report ---
[place] [id number] Test Date: 2017-07-03 Pat Name: Venu Huddleston Department: 101 Room: [facility] Gender: M Event Manager: : [id number] Requested By: Genet Griffin Order Number: [id number] Reading MD: Clyde Kay MD Measurements Intervals [place] Rate: 130 P: 5 PA: 75 QRS: 51 QRSD: 150 T: 208 QT: 384 QTc: 461 Interpretive Statements ELECTRONIC VENTRICULAR PACEMAKER Electronically Signed On 07-07-2017 21:24:19 EST by Clyde Kay MD
[2017-07-08] MEDS: Cefepime HCl 1,000 MG in Water for inj. (sterile) 10 ML IVP SCH (04:52)
[2017-07-08 05:23] LABS: Basophils % 0.5 %; Eosinophils # 0.3 K/mcL (0.0-0.6); Eosinophils % 3.3 %; Hematocrit 28.9 % (37.5-50.1); Hemoglobin 9.2 g/dL (12.9-16.9); Immature Granulocytes % 1.2 % (0-4); Lymphocytes % 12.1 %; Mean Corpuscular HGB Conc 31.8 g/dL (31.6-35.5); Mean Corpuscular Hemoglobin 30.2 pg (28.0-33.3); Mean Corpuscular Volume 94.8 fL (83.0-100.0); Mean Platelet Volume 10.6 fL (9.4-12.4); Monocytes # 0.7 K/mcL (0.0-1.3); Monocytes % 8.9 %; Platelet Count 221 K/mcL (140-400); Red Blood Count 3.05 M/mcL (4.19-5.50); Red Cell Distribution Width 17.5 % (11.5-14.5)
[2017-07-08 05:37] LABS: INR 1.2; Prothrombin Time 13.5 Seconds (9.4-12.1)
[2017-07-08 05:45] LABS: BUN/Creatinine Ratio 17 (6-26); Blood Urea Nitrogen 14 mg/dL (8-26); Calcium 8.5 mg/dL (8.6-10.8); Carbon Dioxide 28 mEq/L (19-29); Chloride 106 mEq/L (98-109); Glucose 120 mg/dL (70-99); Osmolality,Calculated 296 (280-300); Potassium 3.4 mEq/L (3.5-4.5); Sodium 142 mEq/L (136-145); eGFR For African Americans > 60 (> 60); eGFR For Non-African Americans > 60 (> 60)
--- NOTE | 2017-07-08 05:52 | Electrocardiograph Report ---
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
[2017-07-08] MEDS: Cholecalciferol (D-3) 1,000 UNIT TABLET PO SCH (07:38)
[2017-07-08] MEDS: Pregabalin 75 MG CAPSULE PO SCH (07:38)
[2017-07-08] MEDS: Ascorbic Acid 500 MG TABLET PO SCH (07:38)
[2017-07-08] MEDS: Lactobacillus 1 EACH CAP.SPRINK PO SCH (07:38)
[2017-07-08] MEDS: Sennosides 8.6 MG TABLET PO SCH (07:38)
[2017-07-08] MEDS: Multivit/Ca/Min/Fe/FA 1 TAB TABLET PO SCH (07:38)
[2017-07-08] MEDS: *HR* OxyCODONE ER (12 HR) 20 MG TABLET PO SCH (07:39)
[2017-07-08] MEDS: Lactulose Oral Soln 20 GM/30 ML UDC PO SCH (07:39)
[2017-07-08 07:42] VITALS: BP 154/69
--- NOTE | 2017-07-08 07:54 | Orthopedics Progress Note ---
Date of Encounter: 07/08/17 Time of Encounter: 07:53 Subjective Principal diagnosis: Hip prosthesis dislocation Interval history: Patient was seen this morning doing well without complaints. Afebrile vital signs stable. Operative extremity: Neurovascularly intact Dressing clean dry and intact Calves nontender Assessment and plan: Continue with postoperative care Hemoglobin 9.2 dressing clean dry and intact stable for discharge Objective Vital signs: Vital Signs Temp Pulse Resp BP Pulse Ox 07/08/17 07:42 65 154/69 07/07/17 23:58 97.6 F 72 16 145/73 94 07/07/17 22:22 97.4 F L 56 17 133/69 94 07/07/17 18:13 97.8 F 55 14 149/72 93 07/07/17 16:55 75 16 119/74 96 07/07/17 12:18 64 07/07/17 11:11 97.4 F L 66 12 130/64 96 Intake and Output 07/07/17 07/07/17 07/08/17 15:59 23:59 07:59 Intake Total 596 / 596 110 / 110 100 / 100 Output Total 1450 / 1450 800 / 800 700 / 700 Balance -854 / -854 -690 / -690 -600 / -600 Intake: IV Fluids Maxipime 1,000 MG In Water for inj. (sterile) 10 ML @ 150 mls/ hr IVP Q12HR [facility] Rx#:[id number] Oral 596 / 596 100 / 100 100 / 100 Output: Urine 1450 / 1450 800 / 800 700 / 700 Other: Meal Lunch Percent of Meal Consumed 100% Blood Glucose* 153 100 - Labs CBC & BMP: 07/08/17 05:01 07/08/17 05:01 Labs: Abnormal lab results RBC 3.05 M/mcL (4.19-5.50) L 07/08/17 05:01 Hgb 9.2 g/dL (12.9-16.9) L 07/08/17 05:01 Hct 28.9 % (37.5-50.1) L 07/08/17 05:01 RDW 17.5 % (11.5-14.5) H 07/08/17 05:01 ESR 41 mm/hr (0-10) H 07/03/17 09:55 PT 13.5 Seconds (9.4-12.1) H 07/08/17 05:01 APTT 36.9 Seconds (26.0-36.0) H 07/02/17 18:44 Potassium 3.4 mEq/L (3.5-4.5) L 07/08/17 05:01 Glucose 120 mg/dL (70-99) H 07/08/17 05:01 POC Glucose 162 (58-89) H 07/07/17 16:51 Calcium 8.5 mg/dL (8.6-10.8) L 07/08/17 05:01 Iron 36 mcg/dL (65-175) L 07/04/17 02:59 % Saturation 16 % (20-55) L 07/04/17 02:59 Transferrin 162 mg/dL (174-364) L 07/04/17 02:59 C-Reactive Protein 62 mg/L (Less than 5) H 07/03/17 09:55 Serum Total Protein 5.4 g/dL (6.0-8.3) L D 07/03/17 19:06 Albumin 2.6 g/dL (3.5-5.0) L 07/05/17 03:15 Albumin/Globulin Ratio 0.8 (1.1-2.2) L 07/03/17 19:06 - VTE Documentation of Mechanical Device: Intermittent pneumatic compression device Consult Discharge Plan - Plan Referrals: [facility] [Primary Care Provider] - (PATIENT IS HOME BASE CARE WHICH MEANS THEY WILL COME TO SEE PATIENT AT HIS HOME. CALL [facility] WHEN YOU ARE DISCHARGED SO THEY CAN COME AND SEE YOU.) Chirag Izquierdo DO [Partnered Physician] - (OFFICE WILL CALL PATIENT AT HOME WITH FOLLOW UP APPOINTMENT)
--- NOTE | 2017-07-08 09:02 | Discharge Summary ---
Date of Encounter: 07/08/17 Time of Encounter: 08:30 - Discharge Diagnosis (1) Status post total hip replacement, left Priority: Primary Status: Acute Comments: Recent left hip arthroplasty dislocation - status post reduction Infected dislocated left total hip - status post left hip irrigation debridement and revision of acetabulum 07/03/2017 Orthopedics following, PT/OT evaluation Patient is being discharged to [facility] for short-term rehabilitation (2) Wound infection Priority: Primary Status: Acute Comments: Recent wound culture before surgery positive for Pseudomonas Wound Culture - no growth at this time IV Cefepime will be continued for 4-6 weeks ID following, patient will need outpatient follow-up (3) COPD (chronic obstructive pulmonary disease) Priority: Secondary Status: Chronic Comments: COPD, stable - not in exacerbation Continue DuoNeb breathing treatment as needed, Spiriva Qualifiers: COPD type: chronic bronchitis Chronic bronchitis type: simple Qualified Code(s): J41.0 - Simple chronic bronchitis (4) Atrial fibrillation Priority: Primary Status: Chronic Comments: Chronic atrial fibrillation, rate controlled Continue home dose of Lopressor, Coumadin for anticoagulation No bridging is necessary at this time, INR is subtherapeutic, patient will need to monitor PT/INR as outpatient PCP to adjust Coumadin dose Qualifiers: Atrial fibrillation type: paroxysmal Qualified Code(s): I48.0 - Paroxysmal atrial fibrillation (5) Diabetes Priority: Secondary Status: Chronic Comments: Type 2 diabetes mellitus, [id number], hyperglycemia Continue home dose of Metformin, Glipizide Qualifiers: Diabetes mellitus type: type 2 Diabetes mellitus complication status: with hyperglycemia Diabetes mellitus terminal manager insulin use: without terminal manager use Qualified Code(s): E11.65 - Type 2 diabetes mellitus with hyperglycemia (6) Anticoagulant long-term use Priority: Secondary Status: Chronic Comments: Continue Coumadin, no bridging necessary, monitor PT/INR - Discharge Medications Prescriptions: Cefepime HCl/Dextrose, Iso-Osm [Cefepime 2 gm Injection] 2 gm IV Q12HR 28 Days # 28 mls Oxycodone HCl 20 mg PO Q12H #7 tablet OxyCODONE Immed Rel [Roxicodone 5 MG] 5 mg PO Q4H PRN #7 tablet PRN Reason: Pain Pregabalin [Lyrica] 150 mg PO TID #10 capsule Sertraline [Zoloft] 100 mg PO QPM #30 tablet traZODone [TraZODone] 50 mg PO HS PRN #30 tablet PRN Reason: Sleep Home Medications: GlipiZIDE [Glucotrol] 7.5 mg PO BID 04/13/15 [History] Atorvastatin [Lipitor] 10 mg PO HS 10/16/15 [History] Albuterol Sulfate [Albuterol Inhaler] 2 puff IH QID PRN 06/01/17 [History] Cholecalciferol (Vitamin D3) [Vitamin D3] 2,000 unit PO DAILY 06/01/17 [History] Warfarin [Coumadin] 2 mg PO TH 06/01/17 [History] Warfarin [Coumadin] 4 mg PO SUMOTUWEFRSA 06/01/17 [History] amLODIPine [Norvasc] 5 mg PO DAILY 06/01/17 [History] Polyethylene Glycol 3350 [MiraLAX] 17 gm PO DAILY PRN 06/03/17 [History] Tiotropium [Spiriva] 18 mcg IH 0700 06/03/17 [History] Travoprost [Travatan Z] 1 drop BOTH EYES HS 06/03/17 [History] Ipratropium/Albuterol Neb [Duoneb] 3 ml IH QID PRN #1 06/06/17 [Rx] Clopidogrel [Plavix] 75 mg PO DAILY 06/19/17 [History] Ferrous Sulfate [Iron] 325 mg PO BID 06/19/17 [History] Levothyroxine [Synthroid] 50 mcg PO 0630 06/19/17 [History] MOM Conc [MILK OF MAGNESIA conc] 30 ml PO HS PRN 06/19/17 [History] Sennosides/Docusate Sodium [Senna-Docusate Sodium Tablet] 2 tab PO BID PRN 06/19 [History] Saccharomyces Boulardii [Florastor] 250 mg PO BID #60 capsule 06/22/17 [Rx] Losartan Potassium [Cozaar] 100 mg PO DAILY 06/24/17 [History] Metformin HCl [Glucophage] 1,000 mg PO BID 06/24/17 [History] Potassium Chloride [Klor-Con Sprinkle] 10 meq PO DAILY 06/24/17 [History] Furosemide [Lasix] 20 mg PO DAILY #30 tablet 06/29/17 [Rx] Metoprolol [Lopressor] 25 mg PO BID #60 tablet 06/29/17 [Rx] Cefepime HCl/Dextrose, Iso-Osm [Cefepime 2 gm Injection] 2 gm IV Q12HR 28 Days # 28 mls 07/08/17 [Rx] OxyCODONE Immed Rel [Roxicodone 5 MG] 5 mg PO Q4H PRN #7 tablet 07/08/17 [Rx] Oxycodone HCl 20 mg PO Q12H #7 tablet 07/08/17 [Rx] Pregabalin [Lyrica] 150 mg PO TID #10 capsule 07/08/17 [Rx] Sertraline [Zoloft] 100 mg PO QPM #30 tablet 07/08/17 [Rx] traZODone [TraZODone] 50 mg PO HS PRN #30 tablet 07/08/17 [Rx] Allergies/Adverse Reactions: 3 Allergy/AdvReac Type Severity Reaction Status Date / Time azithromycin Allergy See Verified 06/19/17 09:01 Comments ceftriaxone Allergy See Verified 06/19/17 09:01 Comments morphine Allergy See Verified 06/19/17 09:01 Comments sulfamethoxazole AdvReac See Verified 06/19/17 09:01 [From Bactrim] Comments trimethoprim [From Bactrim] AdvReac See Verified 06/19/17 09:01 Comments Date of admission: 07/02/17 16:42 Primary care physician: [facility] Consults: 07/02/17 17:01 Consult to Orthopedic Surgery [CONS] Routine Consulting Provider: [facility] Reason for Consult: Left Hip Dislocation - seen in office 07/02 Call Completed: Yes 07/03/17 16:51 Consult to Nurse Navigator [CONS] Routine Comment: ortho navigator Consult to Occupational Therapy [CONS] Routine Comment: Evaluate, develop and implement POC Reason for Consult: total hip replacement Consult to Physical Therapy [CONS] Routine Comment: Evaluate, develop and implement POC Reason for Consult: total hip replacement Consult to Appeals Specialist [CONS] Routine Reason for SW Consult: post op joint replacement RT Post Op Consult [CONS] Routine 07/04/17 18:36 Consult to Cardiology [CONS] Routine Comment: Consulting Provider: Cardiology [place] Reason for Consult: Atrial fibrillation with RVR Call Completed: Yes 07/06/17 19:00 Consult to Infectious Diseases [CONS] Routine Consulting Provider: [facility] Reason for Consult: Wound infection Call Completed: Yes 07/08/17 07:28 Consult for Pharmacy Education [CONS] Routine Reason for Consult: warfarin dosing Call Completed: No Anticipated date of discharge: 07/08/17 - Patient Status Disposition: Transfer SNF Condition: Fair Functional capacity at discharge: uses cane/walker Overall status at discharge: patient is progressing back to baseline - Discharge Instructions Follow Up With: [facility],PCP [Primary Care Provider] - (PATIENT IS [facility] WHICH MEANS THEY WILL COME TO SEE PATIENT AT HIS HOME. CALL [facility] WHEN YOU ARE DISCHARGED SO THEY CAN COME AND SEE YOU.) Chirag Izquierdo DO [Partnered Physician] - (OFFICE WILL CALL PATIENT AT HOME WITH FOLLOW UP APPOINTMENT) Andrea Cannon MD [Partnered Physician] - Kayce Glover CNP [Advanced Practice Nurse] - - Diet and Activity Activity: as per physical therapy, increase activity as tolerated, resume usual activities as tolerated Diet: low fat, low cholesterol, low salt diet Hospital course: Mr. Huddleston is a 72 year old male with past medical history of atrial fibrillation , COPD, CHF diastolic dysfunction, coronary artery disease history of CABG, CVA , DVT, diabetes [id number]-nqzldsfub, GERD, hypertension, PTSD, anxiety, hypothyroidism and history of left hip prosthetic joint infection. Patient presents to the ED with left hip pain. Initial x-ray showed femur dislocation of the prosthetic hip dislocation. He was recently treated for a prosthetic hip infection. Patient was given vitamin K and if he initially because his INR is elevated. He was also started on IV Levaquin. Patient underwent left hip irrigation and debridement and revision acetabulum. Patient did have episodes of A. fib with RVR. Cardiology has evaluated the patient advised to continue the beta cyn. Patient has also been started on aspirin daily. Patient will need long-term IV antibiotics for his left hip infection. He is being discharged to ECF at the [place]. Patient has been explained about his condition and plan of care in detail. He understood and agreed. No unanswered questions. PT/OT has also evaluated the patient. Patient's H&H is currently stable. He is okay for discharge from orthopedic standpoint. He is hemodynamically stable and has not spiked any fever. His Coumadin has been resumed and no bridging is necessary at this time. Advised to continue metoprolol. Patient is being discharged with IV cefepime for long-term. He is being discharged in a stable condition. - Time Spent with Patient Total time spent providing and/or coordinating discharge services: Greater than 30 minutes - Constitutional Vitals: Temp Pulse Resp BP Pulse Ox 97.6 F 65 16 154/69 94 07/07/17 23:58 07/08/17 07:42 07/07/17 23:58 07/08/17 07:42 07/07/17 23:58 General appearance: Present: cooperative, A&O X 3, pleasant, no acute distress, answers questions appropriately - Head Head exam: Present: atraumatic - Eye Eye exam: Present: EOMI - ENT ENT exam: Present: mucous membranes moist - Respiratory Respiratory exam: Present: CTAB. Absent: rales, rhonchi, wheezes, tachypnea - Cardiovascular Cardiovascular exam: Present: irregular rhythm, +S1, +S2 - GI/Abdominal GI/Abdominal exam: Present: soft. Absent: distended, firm, guarding, tenderness - Extremities Exam Extremities exam: Present: radial pulses palpable and symmetrical. Absent: calf tenderness, cyanotic, pedal edema Additional comments: Left lower extremity brace present, distal pulses palpable - Neurological Exam Neurological exam: Present: alert, oriented X3, no focal deficits. Absent: facial droop, speech deficit - VTE Documentation of Mechanical Device: Intermittent pneumatic compression device
[2017-07-08] MEDS: Insulin LISPRO 300 UNITS/3 ML VIAL SQ SCH (09:06)
--- NOTE | 2017-07-08 11:27 | Physician Discharge Referral ---
ExtendedCare Referral Info Provider in Charge after Transfer: PCP Institutional Level of Care: Skilled - Diagnosis (1) Status post total hip replacement, left Priority: Primary Status: Acute (2) Wound infection Priority: Primary Status: Acute (3) COPD (chronic obstructive pulmonary disease) Priority: Primary Status: Chronic (4) Atrial fibrillation Priority: Primary Status: Chronic (5) Diabetes Priority: Secondary Status: Chronic (6) Anticoagulant long-term use Priority: Secondary Status: Chronic Prognosis: Fair Aware of Diagnosis: Patient Aware of Prognosis: Patient - Transfer Medications Prescriptions: Cefepime HCl/Dextrose, Iso-Osm [Cefepime 2 gm Injection] 2 gm IV Q12HR 28 Days # 28 mls Oxycodone HCl 20 mg PO Q12H #7 tablet OxyCODONE Immed Rel [Roxicodone 5 MG] 5 mg PO Q4H PRN #7 tablet PRN Reason: Pain Pregabalin [Lyrica] 150 mg PO TID #10 capsule Sertraline [Zoloft] 100 mg PO QPM #30 tablet traZODone [TraZODone] 50 mg PO HS PRN #30 tablet PRN Reason: Sleep Home Medications: GlipiZIDE [Glucotrol] 7.5 mg PO BID 04/13/15 [History] Atorvastatin [Lipitor] 10 mg PO HS 10/16/15 [History] Albuterol Sulfate [Albuterol Inhaler] 2 puff IH QID PRN 06/01/17 [History] Cholecalciferol (Vitamin D3) [Vitamin D3] 2,000 unit PO DAILY 06/01/17 [History] Warfarin [Coumadin] 2 mg PO TH 06/01/17 [History] Warfarin [Coumadin] 4 mg PO SUMOTUWEFRSA 06/01/17 [History] amLODIPine [Norvasc] 5 mg PO DAILY 06/01/17 [History] Polyethylene Glycol 3350 [MiraLAX] 17 gm PO DAILY PRN 06/03/17 [History] Tiotropium [Spiriva] 18 mcg IH 0700 06/03/17 [History] Travoprost [Travatan Z] 1 drop BOTH EYES HS 06/03/17 [History] Ipratropium/Albuterol Neb [Duoneb] 3 ml IH QID PRN #1 06/06/17 [Rx] Clopidogrel [Plavix] 75 mg PO DAILY 06/19/17 [History] Ferrous Sulfate [Iron] 325 mg PO BID 06/19/17 [History] Levothyroxine [Synthroid] 50 mcg PO 0630 06/19/17 [History] MOM Conc [MILK OF MAGNESIA conc] 30 ml PO HS PRN 06/19/17 [History] Sennosides/Docusate Sodium [Senna-Docusate Sodium Tablet] 2 tab PO BID PRN 06/19 [History] Saccharomyces Boulardii [Florastor] 250 mg PO BID #60 capsule 06/22/17 [Rx] Losartan Potassium [Cozaar] 100 mg PO DAILY 06/24/17 [History] Metformin HCl [Glucophage] 1,000 mg PO BID 06/24/17 [History] Potassium Chloride [Klor-Con Sprinkle] 10 meq PO DAILY 06/24/17 [History] Furosemide [Lasix] 20 mg PO DAILY #30 tablet 06/29/17 [Rx] Metoprolol [Lopressor] 25 mg PO BID #60 tablet 06/29/17 [Rx] Cefepime HCl/Dextrose, Iso-Osm [Cefepime 2 gm Injection] 2 gm IV Q12HR 28 Days # 28 mls 07/08/17 [Rx] OxyCODONE Immed Rel [Roxicodone 5 MG] 5 mg PO Q4H PRN #7 tablet 07/08/17 [Rx] Oxycodone HCl 20 mg PO Q12H #7 tablet 07/08/17 [Rx] Pregabalin [Lyrica] 150 mg PO TID #10 capsule 07/08/17 [Rx] Sertraline [Zoloft] 100 mg PO QPM #30 tablet 07/08/17 [Rx] traZODone [TraZODone] 50 mg PO HS PRN #30 tablet 07/08/17 [Rx] Allergies/Adverse Reactions: 3 Allergy/AdvReac Type Severity Reaction Status Date / Time azithromycin Allergy See Verified 06/19/17 09:01 Comments ceftriaxone Allergy See Verified 06/19/17 09:01 Comments morphine Allergy See Verified 06/19/17 09:01 Comments sulfamethoxazole AdvReac See Verified 06/19/17 09:01 [From Bactrim] Comments trimethoprim [From Bactrim] AdvReac See Verified 10/20/17 09:01 Comments - Respiratory Orders Smoking Cessation: Smoking cessation has been advised. For more information, call the [place] Tobacco Quit Line at 7-721-UYQD-NOW. - Lab Orders Lab Orders: CBC (In 3 days' time) - Ancillary Orders May use pressure relief devices daily prn - Advance Directives Code Status: Full Code - Mobility Orders Chair, Ambulate - Rehabiliation Orders Rehab Orders: Evaluation for Physical Therapy, Evaluation for Occupational Therapy - Treatments Skin tear care topically daily PRN per policy - Diet Orders Cardiac CERTIFICATION: I certify that the transfer of the above named patient to an Extended Care Facility is necessary for the continuing treatment of the diagnosis listed. The above information is true and accurate reflection of patient's current condition. Confidential - Redisclosure prohibited without a patient's written consent.
[2017-07-08] MEDS ORDERED: *HR* Warfarin 4 MG TABLET PO ONE (18:00)
--- NOTE | 2017-07-09 18:07 | Electrocardiograph Report ---
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
--- NOTE | 2017-07-09 18:09 | Electrocardiograph Report ---
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
== END 2017-07-08 12:12 | DRG 467 ==
LOC: 3NENU 16:42 → EDSTATUS 07-03 15:30 → 2NNU 07-04 19:48 → 3NENU 07-07 18:10
PROVIDERS: ADMIT Physician Assistant; ATTEND Internal Medicine

== ENCOUNTER 2017-10-12 16:00 | Inpatient (IN) ==
[2017-10-12] MEDS ORDERED: 0.9 % Sodium Chloride 1,000 ML IVC ONE (16:09)
[2017-10-12 16:26] LABS: Basophils % 0.5 %; Eosinophils # 0.3 K/mcL (0.0-0.6); Eosinophils % 2.9 %; Hematocrit 32.3 % (37.5-50.1); Immature Granulocytes % 0.5 % (0-4); Lymphocytes # 1.1 K/mcL (0.6-4.6); Lymphocytes % 12.8 %; Mean Corpuscular Hemoglobin 25.6 pg (28.0-33.3); Mean Corpuscular Volume 82.6 fL (83.0-100.0); Mean Platelet Volume 9.9 fL (9.4-12.4); Monocytes # 0.8 K/mcL (0.0-1.3); Monocytes % 9.2 %; Neutrophils # 6.6 K/mcL (1.6-8.9); Platelet Count 272 K/mcL (140-400); Red Blood Count 3.91 M/mcL (4.19-5.50); Red Cell Distribution Width 18.7 % (11.5-14.5); Segmented Neutrophils % 74.1 %
--- NOTE | 2017-10-12 16:30 | Emergency Department Note ---
Disposition Clinical Impression: Tachycardia, NSTEMI (non-ST elevated myocardial infarction), Supratherapeutic INR CHF (congestive heart failure) Qualifiers: Heart failure type: unspecified Heart failure chronicity: acute on chronic Qualified Code(s): I50.9 - Heart failure, unspecified Disposition: Admitted As Inpatient Condition: Good [facility]Primary Care Provider[facility] - Forms: ED Satisfaction Letter Time of Disposition: 18:19 General Adult HPI - General Chief complaint: ED Arrhythmia/Palpitations Stated complaint: chest pain/a fib Time Seen by Provider: 10/12/17 16:09 Source: patient, EMS Mode of arrival: EMS Limitations: no limitations Nursing Notes Reviewed: Yes Vital Signs Reviewed: Yes - History of Present Illness HPI Narrative: 72-year-old male with past medical history of atrial fibrillation, cirrhosis of the liver, hypothyroidism and diabetes presenting to the emergency Department as a transfer from the [facility] with chief complaint of tachycardia. Patient is paced and pacemaker was placed in 2015. When he went to the [facility] he was complaining of chest pain and lab work was completed including troponin, BNP, CBC, CMP and multiple EKGs. Patient's hemoglobin was 9.9, troponin was within normal limits and all other labs within normal limits. Patient denies any pain at this time. Patient states earlier today he was having chest pain and went to the [facility]. He was tachycardic throughout his stay there. He was given a milligrams of adenosine and then 2 sets of 12 mg of adenosine along with amiodarone. He was transferred here for further workup of his tachycardia. Pain Scale: 4 - Related Data Home Medications Medication Instructions Recorded Confirmed GlipiZIDE [Glucotrol] 7.5 mg PO BID 04/13/15 10/12/17 Atorvastatin [Lipitor] 10 mg PO HS 10/16/15 10/12/17 Albuterol Sulfate [Albuterol 2 puff IH QID PRN 06/01/17 10/12/17 Inhaler] Cholecalciferol (Vitamin D3) 2,000 unit PO DAILY 06/01/17 10/12/17 [Vitamin D3] Warfarin [Coumadin] 2 mg PO TUTHSA 06/01/17 10/12/17 Warfarin [Coumadin] 4 mg PO SUMOWEFR 06/01/17 10/12/17 amLODIPine [Norvasc] 5 mg PO DAILY 06/01/17 10/12/17 Polyethylene Glycol 3350 [MiraLAX] 17 gm PO BID PRN 06/03/17 10/12/17 Travoprost [Travatan Z] 1 drop BOTH EYES HS 06/03/17 10/12/17 Clopidogrel [Plavix] 75 mg PO DAILY 06/19/17 10/12/17 Ferrous Sulfate [Iron] 325 mg PO BID 06/19/17 10/12/17 Levothyroxine [Synthroid] 50 mcg PO 0630 06/19/17 10/12/17 MOM Conc [MILK OF MAGNESIA conc] 30 ml PO HS PRN 06/19/17 10/12/17 Sennosides/Docusate Sodium 2 tab PO BID 06/19/17 10/12/17 [Senna-Docusate Sodium Tablet] Losartan Potassium [Cozaar] 100 mg PO DAILY 06/24/17 10/12/17 Metformin HCl [Glucophage] 1,000 mg PO BID 06/24/17 10/12/17 Potassium Chloride [Klor-Con 10 meq PO DAILY 06/24/17 10/12/17 Sprinkle] Amiodarone [Cordarone] 200 mg PO DAILY 10/12/17 10/12/17 Bisacodyl [Dulcolax] 5 mg PO BID 10/12/17 10/12/17 Brimonidine 0.2% [Alphagan] 1 drop BOTH EYES TID 10/12/17 10/12/17 Doxycycline Monohydrate [Mondoxyne 100 mg PO DAILY 10/12/17 10/12/17 Nl] L. Acidophilus/Pectin, [place] 1 each PO DAILY 10/12/17 10/12/17 [Acidophilus Probiotic Capsule] Nitroglycerin [Nitrostat] 0.4 mg SL Q5M PRN 10/12/17 10/12/17 OxyCODONE Immed Rel [Roxicodone 20 20 mg PO Q12H PRN 10/12/17 10/12/17 MG] Simethicone [Gas-X] 160 mg PO TID PRN 10/12/17 10/12/17 Tiotropium [place] [Spiriva 2 puff IH DAILY 10/12/17 10/12/17 Respimat] Previous Rx's Medication Instructions Recorded Ipratropium/Albuterol Neb [Duoneb] 3 ml IH QID PRN #1 06/06/17 Furosemide [Lasix] 20 mg PO DAILY #30 tablet 06/29/17 Metoprolol [Lopressor] 25 mg PO BID #60 tablet 06/29/17 Pregabalin [Lyrica] 150 mg PO TID #10 capsule 07/08/17 Sertraline [Zoloft] 100 mg PO QPM #30 tablet 07/08/17 traZODone [TraZODone] 50 mg PO HS PRN #30 tablet 07/08/17 Allergies Allergy/AdvReac Type Severity Reaction Status Date / Time azithromycin Allergy See Verified 06/19/17 09:01 Comments ceftriaxone Allergy See Verified 06/19/17 09:01 Comments morphine Allergy See Verified 06/19/17 09:01 Comments sulfamethoxazole AdvReac See Verified 06/19/17 09:01 [From Bactrim] Comments trimethoprim [From Bactrim] AdvReac See Verified 06/19/17 09:01 Comments All systems ED: reviewed and negative except as stated. Cardiovascular: Reports: chest pain, palpitations Respiratory: Denies: cough, dyspnea, wheezes Gastrointestinal: Denies: abdominal pain, nausea, vomiting Neurological: Denies: headache, weakness, numbness Past Medical History - Past Medical History Attestation: Yes The following information was validated with the patient. Medical history: Reports: atrial fibrillation, cirrhosis, CHF, COPD, coronary artery disease, CVA, DVT, diabetes, GERD, hepatitis, hypertension, myocardial infarction, peripheral artery disease, thyroid disease, syncope, other Surgical history: Reports: appendectomy, carotid endarterectomy, coronary bypass (CABG), hip replacement, LE stent(s) (Femoral bypass), orthopedic, other , vascular surgery, pacemaker Psychiatric history: Reports: anxiety, PTSD - Social History Smoking Status: Former smoker Smokeless Tobacco Status: No Alcohol use: Reports: none Drug use: Reports: none Physical Exam - General Limitations: no limitations General appearance: alert, in no apparent distress - Head Head exam: atraumatic, normocephalic, normal inspection - Eye Eye exam: Present: normal appearance. Absent: scleral icterus, conjunctival injection - Neck Neck exam: Present: normal inspection, full ROM - Chest Chest inspection: Present: normal inspection, symmetric chest wall rise. Absent : tenderness - Respiratory Respiratory exam: Present: normal lung sounds bilaterally. Absent: respiratory distress, wheezes - Cardiovascular Cardiovascular exam: Present: normal rhythm, tachycardia, normal heart sounds - Abdominal Exam Abdominal exam: Present: soft, Non-Tender. Absent: distention, guarding, rebound - Extremities Exam Extremities exam: Present: normal inspection, full ROM - Neurological Exam Neurological exam: Present: alert, oriented X3 - Psychiatric Psychiatric exam: Present: normal affect, normal mood - Skin Skin exam: Present: warm, dry Course Course Narrative: 72-year-old male transferred to us from [facility] for tachycardia. Patient has a pacemaker. Patient denies any pain at this time. We will repeat lab work including CBC, BMP, troponin, EKG along with chest x-ray. Patient is alert and oriented 3 in the room. He is tachycardic around 125 the vital signs are otherwise stable. Disposition most likely admission for chest pain due to his heart score being greater than 3 but pending these results. Patient agrees with this plan. - Reevaluation(s) Reevaluation #1: Patient's lab work completed here shows elevated troponin at 0.04 along with supratherapeutic INR at 4.3. Patient denies any chest pain at this time. He denies any symptoms at this time. We will admit the patient at this time for an STEMI along with supratherapeutic INR and tachycardia. Patient is alert and oriented 3 in the room. He is not tachycardic vital signs are otherwise stable. He agrees with this plan. I spoke with the admitting hospitalist Dr. Wu who agrees to accept the patient. Vital Signs Temperature 97.6 F 10/12/17 16:04 Pulse Rate 126 10/12/17 16:04 Respiratory Rate 14 10/12/17 16:04 Blood Pressure 110/81 10/12/17 16:04 O2 Sat by Pulse Oximetry 96 10/12/17 16:04 Temperature 97.6 F 10/12/17 16:04 Pulse Rate 122 10/12/17 17:42 Respiratory Rate 17 10/12/17 17:42 Blood Pressure 108/91 10/12/17 17:42 O2 Sat by Pulse Oximetry 95 10/12/17 17:42 Oxygen Delivery Oxygen Delivery Room Air Medical Decision Making - Medical Records Medical records reviewed: Yes I reviewed the patient's medical records. - Lab Data Lab results reviewed: Yes I reviewed the patient's lab results. Result diagrams: 10/12/17 16:18 10/12/17 16:18 Lab Results 10/12/17 10/12/17 10/12/17 Range/Units 16:18 16:18 16:18 WBC 8.9 (4.3-11.1) K/mcL RBC 3.91 L (4.19-5.50) M/mcL Hgb 10.0 L (12.9-16.9) g/dL Hct 32.3 L (37.5-50.1) % MCV 82.6 L (83.0-100.0) fL MCH 25.6 L (28.0-33.3) pg MCHC 31.0 L (31.6-35.5) g/dL RDW 18.7 H (11.5-14.5) % Plt Count 272 (140-400) K/mcL MPV 9.9 (9.4-12.4) fL Immature Gran % 0.5 (0-4) % Seg Neutrophils % 74.1 % Lymphocytes % 12.8 % Monocytes % 9.2 % Eosinophils % 2.9 % Basophils % 0.5 % Neutrophils # 6.6 (1.6-8.9) K/mcL Lymphocytes # 1.1 (0.6-4.6) K/mcL Monocytes # 0.8 (0.0-1.3) K/mcL Eosinophils # 0.3 (0.0-0.6) K/mcL Basophils # 0.0 (0.0-0.2) K/mcL PT 48.2 H* (9.4-12.1) Seconds INR 4.3 APTT 43.8 H (26.0-36.0) Seconds Sodium 136 (136-145) mEq/L Potassium 4.2 (3.5-5.1) mEq/L Chloride 102 (98-107) mEq/L Carbon Dioxide 25 (23-29) mEq/L BUN 17 (8-23) mg/dL Creatinine 0.96 (0.70-1.30) mg/dL Est GFR ( Amer) > 60 (> 60) Est GFR (Non-Af Amer) > 60 (> 60) BUN/Creatinine Ratio 18 (6-26) Glucose 160 H (70-105) mg/dL Calculated Osmolality 287 (280-300) Calcium 9.1 (8.6-10.3) mg/dL Magnesium 2.0 (1.6-2.6) mg/dL Troponin I (< 0.04) ng/mL TSH 7.208 H (0.340-5.600) mcIU/mL 10/12/17 Range/Units 16:18 WBC (4.3-11.1) K/mcL RBC (4.19-5.50) M/mcL Hgb (12.9-16.9) g/dL Hct (37.5-50.1) % MCV (83.0-100.0) fL MCH (28.0-33.3) pg MCHC (31.6-35.5) g/dL RDW (11.5-14.5) % Plt Count (140-400) K/mcL MPV (9.4-12.4) fL Immature Gran % (0-4) % Seg Neutrophils % % Lymphocytes % % Monocytes % % Eosinophils % % Basophils % % Neutrophils # (1.6-8.9) K/mcL Lymphocytes # (0.6-4.6) K/mcL Monocytes # (0.0-1.3) K/mcL Eosinophils # (0.0-0.6) K/mcL Basophils # (0.0-0.2) K/mcL PT (9.4-12.1) Seconds INR APTT (26.0-36.0) Seconds Sodium (136-145) mEq/L Potassium (3.5-5.1) mEq/L Chloride (98-107) mEq/L Carbon Dioxide (23-29) mEq/L BUN (8-23) mg/dL Creatinine (0.70-1.30) mg/dL Est GFR ( Amer) (> 60) Est GFR (Non-Af Amer) (> 60) BUN/Creatinine Ratio (6-26) Glucose (70-105) mg/dL Calculated Osmolality (280-300) Calcium (8.6-10.3) mg/dL Magnesium (1.6-2.6) mg/dL Troponin I 0.04 H* (< 0.04) ng/mL TSH (0.340-5.600) mcIU/mL - Radiology Data Radiology results reviewed: Yes I reviewed the patient's radiology results. Chest X-Ray 10/12/17 16:09 IMPRESSION: Small right pleural effusion with mild pulmonary edema. D/ / Lin Schwartz Cha, MD / Lin Schwartz Cha, MD Interpreting Provider: Lin Schwartz Cha, MD - EKG Data EKG #1 EKG attestation: Yes I reviewed and interpreted this EKG. EKG results narrative: Ventricularly paced. 125 bpm. NE interval 226, QRS 164, QTc 442. No ischemia noted. Does not meet [place] criteria. Compared to EKG completed at [facility] shows no significant change. Attestation Statement - Attestation Attestation: I examined this patient and my medical decision-making was reviewed with the Resident Physician, Dr. Ayon. I agree with the documented findings, disposition and treatment plan as described except to the extent set forth below. Patient is a 72-year-old white male with multiple medical problems including known CAD, atrial fibrillation with pacemaker placement in 2016, COPD, hypertension, diabetes, who presented to the emergency Department transferred from the [facility] for tachycardia. Patient arrives awake alert and oriented 4 in no acute distress and denies any chest discomfort on arrival. [facility] tachycardic with a paced rhythm and he was given adenosine 6 mg 12 mg and another 12 mg followed by amiodarone for the tachycardia. Patient arrives with a heart rate around 120, paced rhythm, with a stable blood pressure and asymptomatic. I agree with the patient's physical exam findings as documented. Patient has a [employer] pacer and his pacemaker rep was on the way for pacer interrogation interpretation. Patient's hemodynamically stable and asymptomatic at this time. We will repeat lab evaluation and chest x-ray and have reviewed all of his records from the [facility]. They did full lab assessment which showed a normal troponin, normal renal function, normal white count and H& H are stable. Patient's pacer rep came and interrogated his pacemaker and states it is functioning properly he has had a number of episodes of tachycardia that has been sinus but otherwise no adverse events. His records were placed on the patient's chart. Patient was found to be supratherapeutic on his Coumadin with an INR of 4.3. His chest x-ray here shows a small pleural effusion as well as mild pulmonary edema. Due to this chest x-ray finding we will hold IV fluids for his tachycardia at this time. Patient's troponin came back positive at 0.04 which is new [facility] that shows troponin 0.02. Patient is chest pain-free at this time. Due to patient's subtherapeutic INR we will hold additional heparin at this time as well for non-STEMI. Patient will be admitted for further cardiac evaluation and management and is asymptomatic at this time.
[2017-10-12 16:41] LABS: Activated Partial Thrombo Time 43.8 Seconds (26.0-36.0)
[2017-10-12 16:44] LABS: INR 4.3; Prothrombin Time 48.2 Seconds (9.4-12.1)
[2017-10-12 16:57] LABS: Thyroid Stimulating Hormone 7.208 mcIU/mL (0.340-5.600)
[2017-10-12 17:07] LABS: BUN/Creatinine Ratio 18 (6-26); Blood Urea Nitrogen 17 mg/dL (8-23); Calcium 9.1 mg/dL (8.6-10.3); Carbon Dioxide 25 mEq/L (23-29); Chloride 102 mEq/L (98-107); Glucose 160 mg/dL (70-105); Osmolality,Calculated 287 (280-300); Potassium 4.2 mEq/L (3.5-5.1); Sodium 136 mEq/L (136-145); eGFR For African Americans > 60 (> 60); eGFR For Non-African Americans > 60 (> 60)
[2017-10-12] MEDS ORDERED: *HR* Promethazine 25 MG/ML VIAL IVP PRN (20:31)
[2017-10-12] MEDS ORDERED: Naloxone 0.4 MG/ML INJ IVP PRN (20:31)
[2017-10-12] MEDS ORDERED: Ondansetron 4 MG/2 ML VIAL IVP PRN (20:31)
[2017-10-12] MEDS ORDERED: Acetaminophen 325 MG TABLET PO PRN (20:31)
[2017-10-12] MEDS ORDERED: MOM Conc 10 ML UD.LIQ PO PRN (20:34)
[2017-10-12] MEDS ORDERED: Nitroglycerin 0.4 MG TAB.SUBL SL PRN (20:34)
[2017-10-12] MEDS ORDERED: Simethicone 80 MG TAB.CHEW PO PRN (20:34)
[2017-10-12] MEDS ORDERED: OXYCODONE HCL 20 MG PO PRN (20:34)
[2017-10-12] MEDS: Latanoprost 2.5 ML BOTTLE BOTH EYES SCH (22:23)
[2017-10-12] MEDS: Furosemide 40 MG/4 ML VIAL IVP SCH (22:23)
[2017-10-12] MEDS: Sennosides/Docusate Sodium TABLET PO SCH (22:23)
[2017-10-12] MEDS: Pregabalin 75 MG CAPSULE PO SCH (22:23)
--- NOTE | 2017-10-12 23:13 | Internal Med History&Physical ---
Date of Encounter: 10/12/17 Time of Encounter: 21:20 Assessment and Plan (1) Diastolic CHF, acute on chronic Current visit: Yes Status: Acute Admit the pt into Tele trend on troponin BPN significnalty elevated CXR reviewed - showed pulm edema / vasc congestion, no infiltrates started him on Lasix 40mg IV BID Resumed home med ASA, Statin, BB ( Metoprolol ) + Losartan Reviewed Echo from 06/16 showed Preserved LVEF Repeat 2D Echo in AM due to his worsening symptoms (2) Chest pain syndrome Current visit: No Status: Acute Due to CHF exacerbation Trend on Trop (3) Atrial fibrillation with RVR Current visit: No Status: Resolved HR in 110's Pt is not taking his Amiodarone at home need to be eval by Card will consult card in AM inc Metoprolol to 50mg BID today Cont Amiodarone too (4) Elevated troponin Current visit: Yes Status: Acute Slightly elevated Demand ischemia Cont trend on trop (5) Supratherapeutic INR Current visit: Yes Status: Acute Hold Coumadin now no signs of bleeding cont close monitoring no emergence reversible meds needed now (6) CAD in [place] artery Current visit: No Status: Acute resumed home meds (7) COPD (chronic obstructive pulmonary disease) Current visit: No Status: Chronic Qualifiers: COPD type: chronic bronchitis Chronic bronchitis type: simple Qualified Code(s): J41.0 - Simple chronic bronchitis (8) Diabetes Current visit: No Status: Chronic hold PO meds placed him on ISS Qualifiers: Diabetes mellitus type: type 2 Diabetes mellitus complication status: with hyperglycemia Diabetes mellitus senior living insulin use: without motor bike mechanic use Qualified Code(s): E11.65 - Type 2 diabetes mellitus with hyperglycemia (9) Hx of CABG Current visit: No Status: Chronic Internal Medicine - H&P: HPI Chief complaint: Chest pressure / SOB/ Leg edema Admitted From: Emergency Dept Plans for Post Hospital Care: Home History of present illness: Mr. Huddleston is a 72 year old male with known PMH of chronic atrial fibrillation ( On Coumadin), CHF Diastolic, COPD (Not oxygen dependent), coronary artery disease (With history of CABG), CVA, DVT, diabetes, GERD, hypertension, myocardial infarction, PTSD, neuropathy, hypothyroidism and depression pt presented to [place] ER with worsening chest pressure and sob from last 2 days. Pt also c/o CHAMBERS and worsening pedal edema. He also mentioned about palpiations and his HR has been elevated in 110's most of the time. Pt was sent to our hospital for further care. Pt denied any CP now, he still have some SOB and CHAMBERS. He was given adenosine in the ER.. He does have paced rhythm. Past Med Surg Social Fam HX - Past Medical History Medical history: atrial fibrillation, cirrhosis, CHF, COPD, coronary artery disease, CVA, DVT, diabetes, GERD, hepatitis, hypertension, myocardial infarction, peripheral artery disease, thyroid disease, syncope Psychiatric history: anxiety, PTSD - Past Surgical History Surgical History: appendectomy, carotid endarterectomy, coronary bypass (CABG), hip replacement, LE stent(s), orthopedic, other, vascular surgery, pacemaker - Social History Smoking Status: Former smoker Smokeless Tobacco Status: No Alcohol use: none Drug use: none - Family History Mother Living Status: Hx Family Cardiac Disorders: Yes Father Living Status: Hx Family Cardiac Disorders: Yes Hx Family Cancer: Yes Internal Medicine - H&P: Meds GlipiZIDE [Glucotrol] 7.5 mg PO BID 04/13/15 [History] Atorvastatin [Lipitor] 10 mg PO HS 10/16/15 [History] Albuterol Sulfate [Albuterol Inhaler] 2 puff IH QID PRN 06/01/17 [History] Cholecalciferol (Vitamin D3) [Vitamin D3] 2,000 unit PO DAILY 06/01/17 [History] Warfarin [Coumadin] 2 mg PO TUTHSA 06/01/17 [History] Warfarin [Coumadin] 4 mg PO SUMOWEFR 06/01/17 [History] amLODIPine [Norvasc] 5 mg PO DAILY 06/01/17 [History] Polyethylene Glycol 3350 [MiraLAX] 17 gm PO BID PRN 06/03/17 [History] Travoprost [Travatan Z] 1 drop BOTH EYES HS 06/03/17 [History] Ipratropium/Albuterol Neb [Duoneb] 3 ml IH QID PRN #1 06/06/17 [Rx] Clopidogrel [Plavix] 75 mg PO DAILY 06/19/17 [History] Ferrous Sulfate [Iron] 325 mg PO BID 06/19/17 [History] Levothyroxine [Synthroid] 50 mcg PO 0630 06/19/17 [History] MOM Conc [MILK OF MAGNESIA conc] 30 ml PO HS PRN 06/19/17 [History] Sennosides/Docusate Sodium [Senna-Docusate Sodium Tablet] 2 tab PO BID 06/19/17 [History] Losartan Potassium [Cozaar] 100 mg PO DAILY 06/24/17 [History] Metformin HCl [Glucophage] 1,000 mg PO BID 06/24/17 [History] Potassium Chloride [Klor-Con Sprinkle] 10 meq PO DAILY 06/24/17 [History] Furosemide [Lasix] 20 mg PO DAILY #30 tablet 06/29/17 [Rx] Metoprolol [Lopressor] 25 mg PO BID #60 tablet 06/29/17 [Rx] Pregabalin [Lyrica] 150 mg PO TID #10 capsule 07/08/17 [Rx] Sertraline [Zoloft] 100 mg PO QPM #30 tablet 07/08/17 [Rx] traZODone [TraZODone] 50 mg PO HS PRN #30 tablet 07/08/17 [Rx] Amiodarone [Cordarone] 200 mg PO DAILY 10/12/17 [History] Bisacodyl [Dulcolax] 5 mg PO BID 10/12/17 [History] Brimonidine 0.2% [Alphagan] 1 drop BOTH EYES TID 10/12/17 [History] Doxycycline Monohydrate [Mondoxyne Nl] 100 mg PO DAILY 10/12/17 [History] L. Acidophilus/Pectin, [place] [Acidophilus Probiotic Capsule] 1 each PO DAILY [History] Nitroglycerin [Nitrostat] 0.4 mg SL Q5M PRN 10/12/17 [History] OxyCODONE Immed Rel [Roxicodone 20 MG] 20 mg PO Q12H PRN 10/12/17 [History] Simethicone [Gas-X] 160 mg PO TID PRN 10/12/17 [History] Tiotropium [place] [Spiriva Respimat] 2 puff IH DAILY 10/12/17 [History] 3 Allergy/AdvReac Type Severity Reaction Status Date / Time azithromycin Allergy See Verified 06/19/17 09:01 Comments ceftriaxone Allergy See Verified 06/19/17 09:01 Comments morphine Allergy See Verified 06/19/17 09:01 Comments sulfamethoxazole AdvReac See Verified 06/19/17 09:01 [From Bactrim] Comments trimethoprim [From Bactrim] AdvReac See Verified 06/19/17 09:01 Comments All Systems PM: A 10-system review of systems was performed and is negative for pertinent findings except as documented above in the HPI. Review of systems: All the systems are reviewed everything is benign except the systems and symptoms I mentioned in the history of present illness - Constitutional Vitals: Temp Pulse Resp BP Pulse Ox 97.5 F L 125 15 152/86 94 10/12/17 20:31 10/12/17 20:31 10/12/17 20:31 10/12/17 20:31 10/12/17 20:31 General appearance: Present: cooperative, A&O X 3, answers questions appropriately - Head Head exam: Present: atraumatic, normal inspection - Neck Neck exam general surgery: Present: supple - Respiratory Respiratory exam: Present: decreased breath sounds, rales (+), wheezes (mild). Absent: respiratory distress, rhonchi - Cardiovascular Cardiovascular exam: Present: irregular rhythm, +S1, +S2, tachycardia. Absent: systolic murmur - GI/Abdominal GI/Abdominal exam: Present: normal bowel sounds, soft. Absent: rebound, rigid, tenderness - Extremities Exam Extremities exam: Present: pedal edema (1+ pitting edema in both legs Lt > Rt). Absent: calf tenderness, tenderness - Back Exam Back exam: Absent: CVA tenderness (L), CVA tenderness (R) - Neurological Exam Neurological exam: Present: alert, oriented X3 - Psychiatric Psychiatric exam: Present: normal affect, normal mood - Skin Skin exam: Absent: rash Internal Med - H&P Results - Labs CBC & Chem 7: 10/12/17 16:18 10/12/17 16:18 Labs: Cardiac Enzymes 10/12/17 Range/Units 20:52 Troponin I 0.03 (< 0.04) ng/mL
[2017-10-13] MEDS: *HR* Amiodarone 200 MG TABLET PO SCH ×2 (00:22→08:08)
[2017-10-13 05:19] LABS: Basophils % 0.5 %; Eosinophils # 0.4 K/mcL (0.0-0.6); Eosinophils % 5.8 %; Hematocrit 30.4 % (37.5-50.1); Hemoglobin 9.6 g/dL (12.9-16.9); Immature Granulocytes % 0.3 % (0-4); Lymphocytes # 1.2 K/mcL (0.6-4.6); Lymphocytes % 19.2 %; Mean Corpuscular HGB Conc 31.6 g/dL (31.6-35.5); Mean Corpuscular Hemoglobin 25.8 pg (28.0-33.3); Mean Corpuscular Volume 81.7 fL (83.0-100.0); Mean Platelet Volume 10.6 fL (9.4-12.4); Monocytes # 0.8 K/mcL (0.0-1.3); Monocytes % 12.1 %; Neutrophils # 3.8 K/mcL (1.6-8.9); Platelet Count 240 K/mcL (140-400); Red Blood Count 3.72 M/mcL (4.19-5.50); Red Cell Distribution Width 18.6 % (11.5-14.5); Segmented Neutrophils % 62.1 %
[2017-10-13 05:49] LABS: Alanine Aminotransferase 17 Units/L (7-52); Albumin 3.3 g/dL (3.5-5.7); Alkaline Phosphatase 63 Units/L (34-104); Aspartate Amino Transferase 28 Units/L (13-39); BUN/Creatinine Ratio 17 (6-26); Bilirubin,Total 0.4 mg/dL (0.3-1.0); Blood Urea Nitrogen 17 mg/dL (8-23); Calcium 8.9 mg/dL (8.6-10.3); Carbon Dioxide 27 mEq/L (23-29); Chloride 102 mEq/L (98-107); Chol/HDL Ratio 3.9 (0-4.9); Cholesterol 82 mg/dL (< 200); Globulin 3.2 g/dL (2.4-3.5); Glucose 90 mg/dL (70-105); HDL Cholesterol 21 mg/dL (40-59); LDL Cholesterol,Calculated 50 mg/dL (0-99); Osmolality,Calculated 285 (280-300); Sodium 137 mEq/L (136-145); Total Protein 6.5 g/dL (6.4-8.9); Triglycerides 57 mg/dL (< 150); eGFR For African Americans > 60 (> 60); eGFR For Non-African Americans > 60 (> 60)
[2017-10-13] MEDS: Doxycycline 100 MG CAPSULE PO SCH (08:07)
[2017-10-13] MEDS: Sennosides/Docusate Sodium TABLET PO SCH ×2 (08:08→20:46)
[2017-10-13] MEDS: Cholecalciferol (D-3) 1,000 UNIT TABLET PO SCH (08:08)
[2017-10-13] MEDS: Lactobacillus 1 EACH CAP.SPRINK PO SCH (08:09)
[2017-10-13] MEDS: Pregabalin 75 MG CAPSULE PO SCH ×3 (08:09→20:46)
[2017-10-13] MEDS: Furosemide 40 MG/4 ML VIAL IVP SCH ×2 (08:10→17:18)
[2017-10-13] MEDS: Tiotropium 18 MCG inhalation IH SCH (08:22)
[2017-10-13] MEDS ORDERED: amLODIPine 5 MG TABLET PO SCH (09:00)
[2017-10-13] MEDS ORDERED: *HR* Amiodarone 200 MG TABLET PO SCH (09:00)
[2017-10-13] MEDS: Ipratropium/Albuterol Neb 3 ML IH PRN ×2 (11:23→20:12)
--- NOTE | 2017-10-13 16:21 | Electrophysiology Consult Note ---
Addendum entered and electronically signed by Fernando Pelayo CNP 10/13/17 17:06 : [facility]- [facility]R 2.4, 09/24/17- INR 1.6, 10/12/17- INR 3.6. I will review with Dr. Callaway. He will likely need out-pt f/u in device clinic to start therapy. Original Note: <Fernando Pelayo - Last Filed: 10/13/17 16:19> Date of Encounter: 10/13/17 Time of Encounter: 16:19 Assessment and Plan (2) Atrial flutter with rapid ventricular response Current Visit: Yes Status: Acute Device check showed underlying atrial flutter, HR 120's. PPM changed to VVI and HR decreased to 70. Hearing Officer discussed with Dr. Callaway, patient is a good candidate for atrial antitachycardia pacing. Discussed with Dr. Callaway, patient needs to be on anticoagulation for at least three weeks prior to starting therapy. I will order records from the [place] cou[place] clinic to make sure his INR was therapeutic for the past month. INR currently 4.3. Continue amiodarone and lopressor. Check TTE. Last TTE 06/19/17- EF 55-60%, moderate RV hypokenesis. Moderately dilated RA. Mild TR. Moderate PHTN. TSH is elevated. Primary team following. (3) Atrial fibrillation Current Visit: No Status: Chronic H/o atrial fibrillation on coumadin. Follows with the cou[place]in clinic [place] the [place]. Continue amiodarone and lopressor. Qualifiers: Atrial fibrillation type: paroxysmal Qualified Code(s): I48.0 - Paroxysmal atrial fibrillation (4) CAD (coronary artery disease) Current Visit: No Status: Chronic H/o CABG. [facility] 10/18/15 showed 2/2 patent bypass grafts. EF 45%. Continue plavix , statin and bb. Off asa to avoid triple therapy. Denies chest pain. Qualifiers: Coronary Disease-Associated Artery/Lesion type: [place] artery [place] vs. transplanted heart: [place] heart Associated angina: without angina Qualified Code(s): I25.10 - Atherosclerotic heart disease of [place] coronary artery without angina pectoris Discussion w patient/family: The assessment and plan as outlined above was discussed with the patient and/or family members who expressed understanding and agreement. All questions were answered. Thank you for involving us in the care of your patient. Please call with any questions. History of Present Illness Consult date: 10/13/17 Requesting physician: Lily Paredes Consult reason: atrial flutter Chief complaint: SOB and tachycardia for six weeks History of present illness: Mr. Huddleston is a 72 year old male with a past medical history of atrial fibrillation on coumadin, DCHF, CAD s/p CABG, PPM, CVA, DVT, and DM type II. He presented to the [place] ED with the c/o SOB and elevated heart rates for the last six weeks. C/o BLE edema and abdominal bloating. He decided to come to the ER due to increasing genralized weakness. He denies chest pain. He was found to have HR 180's on presentation to [place]. He was given IV adenosine per reports. HR improved to 120's. EKG showed ventricular pacing at 130. A device check was completed in the ED and showed his PPM was atrial tracking and pacing at his atrial rate. D/t atrial flutter was pacing at elevated rates for the past few weeks. [employer] fundraising sale representative was called to make mode changes today. He was changed to VVI. HR immediately decreased to the 70's. He is also being treated for acute on chronic diastolic CHF. BNP found to be elevated at 8800 at the [place]. He is receiving IV lasix. He reports he is breathing better. Past Med Surg Social Fam HX - Past Medical History Medical history: atrial fibrillation, cirrhosis, CHF, COPD, coronary artery disease, CVA, DVT, diabetes, GERD, hepatitis, hypertension, myocardial infarction, peripheral artery disease, thyroid disease, syncope Psychiatric history: anxiety, PTSD - Past Surgical History Surgical History: appendectomy, carotid endarterectomy, coronary bypass (CABG), hip replacement, LE stent(s), orthopedic, other, vascular surgery, pacemaker - Social History Smoking Status: Former smoker Smokeless Tobacco Status: No Alcohol use: none Drug use: none - Family History Mother Living Status: Hx Family Cardiac Disorders: Yes Father Living Status: Hx Family Cardiac Disorders: Yes Hx Family Cancer: Yes Medications and Allergies GlipiZIDE [Glucotrol] 7.5 mg PO BID 04/13/15 [History] Atorvastatin [Lipitor] 10 mg PO HS 10/16/15 [History] Albuterol Sulfate [Albuterol Inhaler] 2 puff IH QID PRN 06/01/17 [History] Cholecalciferol (Vitamin D3) [Vitamin D3] 2,000 unit PO DAILY 06/01/17 [History] Warfarin [Coumadin] 2 mg PO TUTHSA 06/01/17 [History] Warfarin [Coumadin] 4 mg PO SUMOWEFR 06/01/17 [History] amLODIPine [Norvasc] 5 mg PO DAILY 06/01/17 [History] Polyethylene Glycol 3350 [MiraLAX] 17 gm PO BID PRN 06/03/17 [History] Travoprost [Travatan Z] 1 drop BOTH EYES HS 06/03/17 [History] Ipratropium/Albuterol Neb [Duoneb] 3 ml IH QID PRN #1 06/06/17 [Rx] Clopidogrel [Plavix] 75 mg PO DAILY 06/19/17 [History] Ferrous Sulfate [Iron] 325 mg PO BID 06/19/17 [History] Levothyroxine [Synthroid] 50 mcg PO 0630 06/19/17 [History] MOM Conc [MILK OF MAGNESIA conc] 30 ml PO HS PRN 06/19/17 [History] Sennosides/Docusate Sodium [Senna-Docusate Sodium Tablet] 2 tab PO BID 06/19/17 [History] Losartan Potassium [Cozaar] 100 mg PO DAILY 06/24/17 [History] Metformin HCl [Glucophage] 1,000 mg PO BID 06/24/17 [History] Potassium Chloride [Klor-Con Sprinkle] 10 meq PO DAILY 06/24/17 [History] Furosemide [Lasix] 20 mg PO DAILY #30 tablet 06/29/17 [Rx] Metoprolol [Lopressor] 25 mg PO BID #60 tablet 06/29/17 [Rx] Pregabalin [Lyrica] 150 mg PO TID #10 capsule 07/08/17 [Rx] Sertraline [Zoloft] 100 mg PO QPM #30 tablet 07/08/17 [Rx] traZODone [TraZODone] 50 mg PO HS PRN #30 tablet 07/08/17 [Rx] Amiodarone [Cordarone] 200 mg PO DAILY 10/12/17 [History] Bisacodyl [Dulcolax] 5 mg PO BID 10/12/17 [History] Brimonidine 0.2% [Alphagan] 1 drop BOTH EYES TID 10/12/17 [History] Doxycycline Monohydrate [Mondoxyne Nl] 100 mg PO DAILY 10/12/17 [History] L. Acidophilus/Pectin, Person [Acidophilus Probiotic Capsule] 1 each PO DAILY [History] Nitroglycerin [Nitrostat] 0.4 mg SL Q5M PRN 10/12/17 [History] OxyCODONE Immed Rel [Roxicodone 20 MG] 20 mg PO Q12H PRN 10/12/17 [History] Simethicone [Gas-X] 160 mg PO TID PRN 10/12/17 [History] Tiotropium [place] [Spiriva Respimat] 2 puff IH DAILY 10/12/17 [History] 3 Allergy/AdvReac Type Severity Reaction Status Date / Time azithromycin Allergy See Verified 06/19/17 09:01 Comments ceftriaxone Allergy See Verified 06/19/17 09:01 Comments morphine Allergy See Verified 06/19/17 09:01 Comments sulfamethoxazole AdvReac See Verified 06/19/17 09:01 [From Bactrim] Comments trimethoprim [From Bactrim] AdvReac See Verified 06/19/17 09:01 Comments All Systems Review: A 10-system review of systems was performed and is negative for pertinent findings except as documented above in the HPI. Physical Examination Vital Signs, Last 4 Hours Temp Pulse Resp BP Pulse Ox 10/13/17 15:33 97.4 F L 75 15 92/52 94 General: Conversant, No Apparent Distress HEENT: Atraumatic, Normocephaly, Mucus Membranes Moist Neck: No JVD, Normal carotid pulses Cardiac: Other (irregular) Lungs: Normal Breath Sounds, No Wheeze, Rales, Rhonchi Neuro: Alert and responsive, No focal deficits noted Abdomen: Soft, Non-Tender Skin: No rashes noted on visualized skin Musculoskeletal: No Chest Wall Tenderness Extremities: No Clubbing, No Cyanosis, Normal Pulses, Other (1+ ankle edema bilat) Results 10/13/17 03:21 10/13/17 03:21 Lab Results 10/13/17 10/13/17 10/13/17 03:21 03:21 03:21 WBC 6.2 Hgb 9.6 L Hct 30.4 L Plt Count 240 Sodium 137 Potassium 4.0 Chloride 102 Carbon Dioxide 27 BUN 17 Creatinine 1.01 Glucose 90 Calcium 8.9 Magnesium 2.0 Total Bilirubin 0.4 AST 28 ALT 17 Alkaline Phosphatase 63 Troponin I 0.03 B-Natriuretic Peptide 10/13/17 03:21 WBC Hgb Hct Plt Count Sodium Potassium Chloride Carbon Dioxide BUN Creatinine Glucose Calcium Magnesium Total Bilirubin AST ALT Alkaline Phosphatase Troponin I B-Natriuretic Peptide 995 H - Imaging and Cardiology Echo: report reviewed - EKG Interpretation EKG results cardiology: personally reviewed Consult Discharge Plan - Plan [facility]errals: [facility]Primary Care Provider[facility] - <Nick Callaway Peña - Last Filed: 10/15/17 17:38> Date of Encounter: 10/15/17 - Attending Attestation I have personally performed a face to face evaluation on this patient. I have reviewed and agree with the care plan. History and Exam by me shows: Atypical atrial flutter with pacer tracking. Changed pacing mode to DDI ( nontracking). Will follow up as outpt. when anticoagulated for 3 weeks to turn on atrial therapies. Assessment and Plan Discussion w patient/family: The assessment and plan as outlined above was discussed with the patient and/or family members who expressed understanding and agreement. All questions were answered. Thank you for involving us in the care of your patient. Please call with any questions. History of Present Illness History of present illness: Mr. Huddleston is a 72 year old male All Systems Review: A 10-system review of systems was performed and is negative for pertinent findings except as documented above in the HPI. Physical Examination Vital Signs, Last 4 Hours Temp Pulse Resp BP Pulse Ox 10/15/17 16:17 97.7 F 69 15 96/60 95 Results 10/15/17 10:26 10/15/17 05:08 Lab Results 10/14/17 10/15/17 10/15/17 19:21 05:08 10:26 WBC 9.5 Hgb 9.3 L 9.4 L Hct 29.8 L 30.8 L Plt Count 251 INR Sodium 133 L Potassium 4.2 Chloride 98 Carbon Dioxide 27 BUN 20 Creatinine 0.95 Glucose 135 H Calcium 8.7 10/15/17 10:26 WBC Hgb Hct Plt Count INR 2.8 Sodium Potassium Chloride Carbon Dioxide BUN Creatinine Glucose Calcium
--- NOTE | 2017-10-13 17:01 | Internal Med Progress Note ---
Date of Encounter: 10/13/17 Time of Encounter: 09:25 - Assessment and plan (1) Atrial flutter with rapid ventricular response Current Visit: Yes Status: Acute Assessment and plan: [place] had EP consultation today. Device check showed underlying A. fib with a rate in the 120s. Settings on pacemaker were changed and pulse decreased to 70. Device retail service representative discussed with Dr. Callaway the patient is a good candidate for atrial antitachycardia pacing. Patient will need to be on anticoagulation for at least 3 weeks prior to starting therapy. [facility] patient was supratherapeutic several time. Cardiology is considering medication adjustments to amiodarone, Lopressor was added today 25 mg by mouth twice a day. Echo tomorrow. TSH is elevated, patient will need to follow with primary care after discharge for continued monitoring and evaluation after he is no longer acutely ill. (2) Diastolic CHF, acute on chronic Current Visit: Yes Status: Acute Assessment and plan: Patient with increasing shortness of breath over the last few weeks. He should also with tachycardia, A. fib RVR for the last 6 weeks. Cardiogram in May, showed preserved LV EF with normal systolic function, dilated RV with mild RV hypokinesis. Moderately dilated right atrium, mild TR, moderate pulmonary hypertension. Lungs are clear and diminished, patient is requiring supplemental oxygen. Patient has no peripheral edema and denies cough, that he is obviously short of breath even on oxygen. Continue telemetry. Continue oxygen to maintain sats greater than 92%. Continue IV Lasix 40 mg twice daily Cardiac diet, daily weights, I&O. Low-sodium diet (3) Elevated troponin Current Visit: Yes Status: Acute Assessment and plan: The patient was seen by cardiology today. Due to troponin due to demand ischemia from CHF exacerbation. No further testing is warranted at this time. He denies chest pain. (4) Supratherapeutic INR Current Visit: Yes Status: Resolved Assessment and plan: INR is currently therapeutic. Pharmacy to dose warfarin. Continue to monitor (5) Anemia Current Visit: Yes Status: Acute Assessment and plan: Patient reports being started on iron supplements approximately 4-5 months ago. He reports that he is adherent and takes them daily. Hemoglobin has declined since admission, 10.0> 9.6. Iron studies and a stool occult blood ordered for tomorrow. Continue ferrous sulfate 325 mg twice daily Qualifiers: Anemia type: other cause Other causes of anemia: other cause, not classified Qualified Code(s): D64.89 - Other specified anemias (6) CAD in [place] artery Current Visit: Yes Status: Acute Assessment and plan: Chronic. She currently denies any chest pain. Continue amiodarone, Lipitor, Plavix and warfarin, beta cyn. (7) COPD (chronic obstructive pulmonary disease) Current Visit: Yes Status: Chronic Assessment and plan: Chronic. Acute exacerbation. Continue albuterol inhaler, DuoNeb , Spiriva. Qualifiers: COPD type: chronic bronchitis Chronic bronchitis type: simple Qualified Code(s): J41.0 - Simple chronic bronchitis (8) Hx of CABG Current Visit: No Status: Chronic Assessment and plan: Per patient history. (9) DVT prophylaxis Current Visit: No Status: Acute Assessment and plan: Patient is on warfarin, pharmacy to dose. - Time Spent With Patient less than 15 minutes - Subjective Interval history: Patient was seen and assessed at bedside at 9:25 AM. He denies chest pain. Patient is tachycardic and he can see patient's heart beating through down. reports it has been like that for 6 weeks. The patient was discharged here recently and was taken off amiodarone and felt good, he reports that [facility] and he began feeling ill again shortly after. Patient denies headache or blurred vision. He denies any dizziness. He reports shortness of breath and denies chest pain. His abdomen is mildly rounded and distended and he denies any abdominal pain, nausea, vomiting, or diarrhea. - Constitutional Vitals: Temp Pulse Resp BP Pulse Ox 97.4 F L 75 15 92/52 94 10/13/17 15:33 10/13/17 15:33 10/13/17 15:33 10/13/17 15:33 10/13/17 15:33 General appearance: Present: cooperative, A&O X 3, pleasant, answers questions appropriately - Head Head exam: Present: atraumatic, normal inspection, normocephalic - Eye Eye exam: Present: normal appearance, conjuntiva pink, sclera anicteric - Neck Neck exam general surgery: Present: supple, trachea midline. Absent: lymphadenopathy, tenderness - Respiratory Respiratory exam: Present: CTAB. Absent: accessory muscle use, chest wall tenderness, rales, rhonchi, wheezes - Cardiovascular Cardiovascular exam: Present: RRR, +S1, +S2. Absent: diastolic murmur, gallop, rubs, systolic murmur - GI/Abdominal GI/Abdominal exam: Present: normal bowel sounds, soft. Absent: distended, hepatomegaly, tenderness - Extremities Exam Extremities exam: Present: normal capillary refill, normal inspection, warm, radial pulses palpable and symmetrical. Absent: calf tenderness, cyanotic, pedal edema, tenderness - Neurological Exam Neurological exam: Present: alert, oriented X3, no focal deficits. Absent: facial droop, speech deficit - Skin Skin exam: Present: dry, intact, normal color, warm. Absent: rash Internal Medicine: Result - Labs CBC & Chem 7: 10/13/17 03:21 10/13/17 03:21 Labs: Short CBC 10/13/17 Range/Units 03:21 WBC 6.2 (4.3-11.1) K/mcL Hgb 9.6 L (12.9-16.9) g/dL Hct 30.4 L (37.5-50.1) % Plt Count 240 (140-400) K/mcL Neutrophils # 3.8 (1.6-8.9) K/mcL BMP 10/13/17 03:21 Sodium 137 Potassium 4.0 Chloride 102 Carbon Dioxide 27 BUN 17 Creatinine 1.01 Glucose 90 Calcium 8.9 Cardiac Enzymes 10/13/17 Range/Units 03:21 Troponin I 0.03 (< 0.04) ng/mL Liver Function 10/13/17 Range/Units 03:21 Total Bilirubin 0.4 (0.3-1.0) mg/dL AST 28 (13-39) Units/L ALT 17 (7-52) Units/L Alkaline Phosphatase 63 (34-104) Units/L Albumin 3.3 L (3.5-5.7) g/dL - ABG Interpretation ABG results: PT/INR, D-dimer PT 48.2 Seconds (9.4-12.1) H* 10/12/17 16:18 Consult Discharge Plan - Plan [facility]errals: [facility] [Primary Care Provider] -
[2017-10-13] MEDS: *HR* OxyCODONE ER (12 HR) 20 MG TABLET PO PRN (17:27)
--- NOTE | 2017-10-13 18:34 | Electrocardiograph Report ---
[place] [id number] Test Date: 2017-10-12 Pat Name: Venu Huddleston Department: 102 Room: 3B23 Gender: M Anchorman: : 1945 Requested By: Felicita Ortega Order Number: [id number] Reading MD: Vera Callaway Measurements Intervals [place] Rate: 125 P: 47 MS: 226 QRS: 125 QRSD: 164 T: -15 QT: 368 QTc: 442 Interpretive Statements ELECTRONIC VENTRICULAR PACEMAKER ABNORMAL RHYTHM ECG Electronically Signed On 10-13-2017 18:32:40 EST by Vera Callaway
[2017-10-13] MEDS: Latanoprost 2.5 ML BOTTLE BOTH EYES SCH (20:47)
[2017-10-14] MEDS: Ipratropium/Albuterol Neb 3 ML IH PRN (04:00)
[2017-10-14 05:25] LABS: Basophils % 0.4 %; Eosinophils # 0.2 K/mcL (0.0-0.6); Eosinophils % 3.2 %; Hematocrit 27.8 % (37.5-50.1); Hemoglobin 8.9 g/dL (12.9-16.9); Immature Granulocytes % 0.6 % (0-4); Lymphocytes # 1.3 K/mcL (0.6-4.6); Lymphocytes % 18.7 %; Mean Corpuscular Hemoglobin 25.6 pg (28.0-33.3); Mean Corpuscular Volume 79.9 fL (83.0-100.0); Monocytes # 0.7 K/mcL (0.0-1.3); Monocytes % 10.3 %; Neutrophils # 4.8 K/mcL (1.6-8.9); Platelet Count 229 K/mcL (140-400); Red Blood Count 3.48 M/mcL (4.19-5.50); Red Cell Distribution Width 18.9 % (11.5-14.5); Segmented Neutrophils % 66.8 %
[2017-10-14 05:51] LABS: BUN/Creatinine Ratio 22 (6-26); Blood Urea Nitrogen 24 mg/dL (8-23); Calcium 8.6 mg/dL (8.6-10.3); Carbon Dioxide 28 mEq/L (23-29); Chloride 101 mEq/L (98-107); Glucose 145 mg/dL (70-105); Osmolality,Calculated 287 (280-300); Potassium 4.1 mEq/L (3.5-5.1); Sodium 135 mEq/L (136-145); eGFR For African Americans > 60 (> 60); eGFR For Non-African Americans > 60 (> 60)
[2017-10-14 08:17] LABS: Hematocrit 28.7 % (37.5-50.1); Hemoglobin 9.1 g/dL (12.9-16.9)
[2017-10-14 08:35] LABS: % Iron Saturation 4 % (20-55); Iron 12 mcg/dL (65-175); Transferrin 211 mg/dL (203-362)
[2017-10-14] MEDS: Furosemide 40 MG/4 ML VIAL IVP SCH ×2 (09:05→15:35)
[2017-10-14] MEDS: Doxycycline 100 MG CAPSULE PO SCH (09:05)
[2017-10-14] MEDS: Lactobacillus 1 EACH CAP.SPRINK PO SCH (09:06)
[2017-10-14] MEDS: Cholecalciferol (D-3) 1,000 UNIT TABLET PO SCH (09:06)
[2017-10-14] MEDS: *HR* Amiodarone 200 MG TABLET PO SCH (09:06)
[2017-10-14] MEDS: Pregabalin 75 MG CAPSULE PO SCH ×3 (09:06→21:41)
[2017-10-14] MEDS: Sennosides/Docusate Sodium TABLET PO SCH ×2 (09:22→21:33)
[2017-10-14] MEDS: Tiotropium 18 MCG inhalation IH SCH (10:14)
--- NOTE | 2017-10-14 11:41 | Electrocardiograph Report ---
[place] [id number] Test Date: 2017-10-13 Pat Name: Venu Huddleston Department: 113 Room: 3B23 Gender: Per Diem Interpreter: : 1945 Requested By: Lily Paredes Order Number: [id number] Reading MD: Clyde Kay MD Measurements Intervals [place] Rate: 74 P: MD: 0 QRS: 131 QRSD: 114 T: 90 QT: 433 QTc: 461 Interpretive Statements ATRIAL FIBRILLATION MARKED RIGHT AXIS DEVIATION RIGHT BUNDLE BRANCH BLOCK BASELINE ARTIFACT Electronically Signed On 10-14-2017 11:40:16 EST by Clyde Kay MD
[2017-10-14] MEDS: *HR* OxyCODONE ER (12 HR) 20 MG TABLET PO PRN (13:12)
--- NOTE | 2017-10-14 15:05 | Electrophysiology ProgressNote ---
Date of Encounter: 10/14/17 Time of Encounter: 13:00 Assessment and Plan (1) Acute on chronic systolic CHF (congestive heart failure) Current Visit: Yes Status: Acute TTE completed this admission shows EF now reduced at 35-40%. Global left ventricular systolic dysfunction with regional variations. Atypical septal motion consistent with post-operative status. Indeterminate diastolic function. Moderately dilated and hypokinetic right ventricle. Moderate tricuspid regurgitation. Mild pulmonary hypertension. Estimated RVSP is 42 mmHg. Last TTE 05/2017 showed EF 55-60%. Ischemic evaluation is recommended. We will consult with cardiology service. We will need to hold coumadin. C when INR less than 1.8. Start heparin gtt when INR less than 2.0 due to history of CVA. R/B/A of [facility] discussed with Mr. Huddleston and he agrees to proceed. (2) Atrial flutter with rapid ventricular response Current Visit: Yes Status: Acute Device check showed underlying atrial flutter, HR 120's. PPM changed to VVI and HR decreased to 70. Hydrogen Plant Operator discussed with Dr. Callaway, patient is a good candidate for atrial antitachycardia pacing. Discussed with Dr. Callaway, patient needs to be on anticoagulation for at least three weeks prior to starting therapy. On 09/24/17 her was subtherapeutic, INR 1.6. We will have him follow in 2 weeks in the cardiology office to make adjustments. Continue amiodarone and lopressor. Coumadin followed by the [place]. Check TTE. Last TTE 06/19/17- EF 55-60%, moderate RV hypokenesis. Moderately dilated RA. Mild TR. Moderate PHTN. EF now 35-40%. Global left ventricular systolic dysfunction with regional variations. We will discuss ischemic evaluation. 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 TSH is elevated. Primary team following. (3) Atrial fibrillation Current Visit: No Status: Chronic H/o atrial fibrillation on coumadin. Follows with the coumadin clinic at the [place]. Continue amiodarone and lopressor. Qualifiers: Atrial fibrillation type: paroxysmal Qualified Code(s): I48.0 - Paroxysmal atrial fibrillation (4) CAD (coronary artery disease) Current Visit: No Status: Chronic H/o CABG. [facility] 10/18/15 showed 2/2 patent bypass grafts. EF 45%. Continue plavix , statin and bb. Off asa to avoid triple therapy. Denies chest pain. Qualifiers: Coronary Disease-Associated Artery/Lesion type: [place] artery [place] vs. transplanted heart: [place] heart Associated angina: without angina Qualified Code(s): I25.10 - Atherosclerotic heart disease of [place] coronary artery without angina pectoris Discussion w patient/family: The assessment and plan as outlined above was discussed with the patient and/or family members who expressed understanding and agreement. All questions were answered. Thank you for involving us in the care of your patient. Please call with any questions. Subjective Principal diagnosis: atrial flutter/ afib Interval history: Patient denies recurrent symptoms. Reports he is feeling better. Objective Vital Signs Temp Pulse Resp BP Pulse Ox 10/14/17 09:23 80 106/65 10/14/17 07:21 98.4 F 58 16 104/63 98 10/14/17 04:00 18 96 10/14/17 03:31 98.0 F 67 16 94/54 91 10/13/17 22:59 97.6 F 90 18 98/65 96 10/13/17 20:13 16 87 10/13/17 19:39 97.5 F L 80 17 103/67 92 10/13/17 17:12 62 97/59 97 10/13/17 15:33 97.4 F L 75 15 92/52 94 Intake and Output 10/13/17 10/14/17 10/14/17 23:59 07:59 15:59 Intake Total 240 / 240 Output Total 200 / 200 Balance -200 / -200 240 / 240 Intake: Oral 240 / 240 Output: Urine 200 / 200 Other: Meal Lunch Percent of Meal Consumed 95% Stool Color Brown # Voids 1 # Bowel Movements 1 Weight 81.102 kg Blood Glucose* 145 145 Patient Weight 10/14/17 23:59 Weight 81.102 kg General: Conversant, No Apparent Distress HEENT: Atraumatic, Normocephaly, Mucus Membranes Moist Neck: No JVD, Normal carotid pulses Cardiac: Reg Rate and Rhythm, Normal S1 and S2, No Murmur Lungs: Other (Irregular) Neuro: Alert and responsive, No focal deficits noted Abdomen: Soft, Non-Tender Skin: No rashes noted on visualized skin Musculoskeletal: No Chest Wall Tenderness Extremities: No Clubbing, No Cyanosis, No Edema, Normal Pulses Results 10/14/17 14:46 10/14/17 04:57 Lab Results 10/14/17 10/14/17 10/14/17 04:57 04:57 07:50 WBC 7.1 Hgb 8.9 L 9.1 L Hct 27.8 L 28.7 L Plt Count 229 Sodium 135 L Potassium 4.1 Chloride 101 Carbon Dioxide 28 BUN 24 H Creatinine 1.08 Glucose 145 H Calcium 8.6 - EKG Interpretation EKG results cardiology: personally reviewed Consult Discharge Plan - Plan [facility]errals: [facility] [Primary Care Provider] -
[2017-10-14 15:09] LABS: INR 3.3; Prothrombin Time 35.9 Seconds (9.4-12.1)
[2017-10-14] MEDS ORDERED: Iron Sucrose Complex 400 MG in 0.9 % Sodium Chloride 250 ML IVPB ONE (15:25)
[2017-10-14 15:26] LABS: Hematocrit 27.9 % (37.5-50.1); Hemoglobin 8.9 g/dL (12.9-16.9)
--- NOTE | 2017-10-14 15:29 | Internal Med Progress Note ---
Date of Encounter: 10/14/17 Time of Encounter: 08:40 - Assessment and plan (1) Atrial flutter with rapid ventricular response Current Visit: Yes Status: Acute Assessment and plan: Patient's rate has been in the 50s and 60s today. Electrophysiology has evaluated patient and they will continue the amiodarone and Lopressor. [facility] DF currently 35-40% with global LV systolic dysfunction and regional variations. Al device visualized in the right atrium and right ventricle. 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 Cardiology discussing ischemic evaluation. TSH is elevated, he will need to follow with primary care for further evaluation when he is no longer acutely ill. (2) Diastolic CHF, acute on chronic Current Visit: Yes Status: Acute Assessment and plan: TTE completed 10/13 shows EF 35-40% with global LV systolic dysfunction. There is atypical septal motion consistent with postoperative status, moderately dilated and hypokinetic right ventricle. Mild TR, mild pulmonary hypertension as been a significant decrease in EF since last echo in May,. Cardiology recommended holding Coumadin and LH C when INR is less than 1.8. Start heparin drip when INR less than 2.0. Lungs are clear and diminished, patient is requiring supplemental oxygen. Patient has no peripheral edema and denies cough. Continue telemetry. Continue oxygen to maintain sats greater than 92%. Continue IV Lasix 40 mg twice daily Cardiac diet, daily weights, I&O. Low-sodium diet LHC pending when INR 1.8 (3) Elevated troponin Current Visit: Yes Status: Acute Assessment and plan: Plan as above. (4) Supratherapeutic INR Current Visit: Yes Status: Resolved Assessment and plan: INR is currently therapeutic at 3.3. Pt to have LHC, will hold Coumadin, procedure when INR < 1.8. Pharmacy to dose after procedure. Start Heparin gtt after INR 2.0 (5) Anemia Current Visit: Yes Status: Acute Assessment and plan: Patient reports being started on iron supplements approximately 4-5 months ago. He reports that he is adherent and takes them daily. Pt has failed outpatient treatment. Hemoglobin has declined since admission, 10.0> 9.6> 8.9. Iron 12, % Sat 4. Venofer 400mg IV x 1 and have pt follow up with PCP and oncology after discharge. Qualifiers: Anemia type: other cause Other causes of anemia: other cause, not classified Qualified Code(s): D64.89 - Other specified anemias (6) CAD in [place] artery Current Visit: Yes Status: Acute Assessment and plan: Chronic. Pt currently denies any chest pain. Continue amiodarone, Lipitor, Plavix and warfarin, beta cyn. (7) COPD (chronic obstructive pulmonary disease) Current Visit: Yes Status: Chronic Assessment and plan: Chronic. Acute exacerbation, improving. Continue albuterol inhaler, DuoNeb , Spiriva. Lungs diminished in [place], faint wheezing heard in post bases. Pt is in no distress and is on 2L Qualifiers: COPD type: chronic bronchitis Chronic bronchitis type: simple Qualified Code(s): J41.0 - Simple chronic bronchitis (8) Hx of CABG Current Visit: No Status: Chronic Assessment and plan: Per patient history. (9) DVT prophylaxis Current Visit: No Status: Acute Assessment and plan: Patient is on warfarin, pharmacy to dose. Will start Heparin gtt when INR 2.0 - Time Spent With Patient less than 15 minutes - Subjective Interval history: Patient was seen and assessed at bedside at 0840 AM. He denies chest pain. Patient denies headache or blurred vision. He denies any dizziness. His abdomen is mildly rounded and distended and he denies any abdominal pain, nausea , vomiting, or diarrhea. He denies chest pain, palpitations, or SOB today. Pt states that he feels much better and is no longer fatigued. - Constitutional Vitals: Temp Pulse Resp BP Pulse Ox 97.6 F 80 16 108/62 96 10/14/17 11:20 10/14/17 11:20 10/14/17 11:20 10/14/17 11:20 10/14/17 11:20 General appearance: Present: cooperative, A&O X 3, pleasant, answers questions appropriately - Head Head exam: Present: atraumatic, normal inspection, normocephalic - Eye Eye exam: Present: normal appearance, conjuntiva pink, sclera anicteric - Neck Neck exam general surgery: Present: supple, trachea midline. Absent: lymphadenopathy, tenderness - Respiratory Respiratory exam: Present: CTAB. Absent: accessory muscle use, chest wall tenderness, rales, respiratory distress, rhonchi, wheezes - Cardiovascular Cardiovascular exam: Present: RRR, +S1, +S2. Absent: diastolic murmur, gallop, rubs, systolic murmur - GI/Abdominal GI/Abdominal exam: Present: normal bowel sounds, soft. Absent: distended, hepatomegaly, tenderness - Extremities Exam Extremities exam: Present: normal capillary refill, normal inspection, warm, radial pulses palpable and symmetrical. Absent: calf tenderness, cyanotic, pedal edema, tenderness - Neurological Exam Neurological exam: Present: alert, oriented X3, no focal deficits. Absent: facial droop, speech deficit - Skin Skin exam: Present: dry, intact, normal color, warm. Absent: rash Internal Medicine: Result - Labs CBC & Chem 7: 10/14/17 07:50 10/14/17 04:57 Labs: Short CBC 10/14/17 10/14/17 Range/Units 04:57 07:50 WBC 7.1 (4.3-11.1) K/mcL Hgb 8.9 L 9.1 L (12.9-16.9) g/dL Hct 27.8 L 28.7 L (37.5-50.1) % Plt Count 229 (140-400) K/mcL Neutrophils # 4.8 (1.6-8.9) K/mcL BMP 10/14/17 04:57 Sodium 135 L Potassium 4.1 Chloride 101 Carbon Dioxide 28 BUN 24 H Creatinine 1.08 Glucose 145 H Calcium 8.6 - ABG Interpretation ABG results: PT/INR, D-dimer PT 35.9 Seconds (9.4-12.1) H 10/14/17 14:46 - Impressions Impressions Echocardiogram 10/13/17 15:06 Impressions: LVEF 35-40%. Normal LV chamber size and wall thickness. Global left ventricular systolic dysfunction with regional variations. Atypical septal motion consistent with post-operative status. Indeterminate diastolic function. Moderately dilated and hypokinetic right ventricle. Moderate tricuspid regurgitation. Mild pulmonary hypertension. Estimated RVSP is 42 mmHg. A device lead was visualized in the right atrium and right ventricle. Left Ventricular Wall Motion: Rest Echo Findings The apex, apical inferior, mid inferior, basal inferior, apical anterior, mid anterior, basal anterior, apical septal, mid inferior septal, basal inferior septal, apical lateral, mid anterior lateral, basal anterior lateral, mid anterior septal, mid inferior lateral, basal anterior septal and basal inferior lateral martinez were hypokinetic. Findings: Study Quality * Technically adequate exam. ECG Findings * Atrial fibrillation. Left Ventricle * LVEF 35-40%. * Normal LV chamber size and wall thickness. * Global left ventricular systolic dysfunction with regional variations. * Atypical septal motion consistent with post-operative status. * Indeterminate diastolic function. Right Ventricle * Moderately dilated and hypokinetic right ventricle. Left Atrium * Mildly dilated left atrium. Right Atrium * Mild to moderately dilated right atrium. Interatrial Septum * Interatrial septum not well evaluated. Aortic Valve * Trileaflet aortic valve. * Mildly sclerotic aortic valve leaflets. * No aortic stenosis. * Trace aortic regurgitation. Mitral Valve * Mild mitral annular calcification * Mildly thickened mitral valve leaflets. * Trace mitral regurgitation. * No mitral stenosis. Tricuspid Valve * Normal tricuspid valve structure. * Moderate tricuspid regurgitation. * Mild pulmonary hypertension. * Estimated RVSP is 42 mmHg. * Estimated RA pressure is 10 mmHg. Pulmonic Valve * Pulmonic valve is not well visualized. * No pulmonic regurgitation. Aorta * Normally sized aortic root. Pericardium * The pericardium appears normal. IVC * The IVC is dilated. * > 50% respiratory change Device lead * A device lead was visualized in the right atrium and right ventricle. Pulmonary Artery * Normal visualized portions of the main pulmonary artery. Consult Discharge Plan - Plan [facility]errals: [facility] [Primary Care Provider] -
[2017-10-14 19:44] LABS: Hematocrit 29.8 % (37.5-50.1); Hemoglobin 9.3 g/dL (12.9-16.9)
[2017-10-14] MEDS: Latanoprost 2.5 ML BOTTLE BOTH EYES SCH (21:41)
[2017-10-15] MEDS: Tiotropium 18 MCG inhalation IH SCH (08:16)
[2017-10-15] MEDS: Ipratropium/Albuterol Neb 3 ML IH PRN (08:16)
[2017-10-15] MEDS: *HR* OxyCODONE ER (12 HR) 20 MG TABLET PO PRN (08:45)
[2017-10-15] MEDS: Lactobacillus 1 EACH CAP.SPRINK PO SCH (08:45)
[2017-10-15] MEDS: *HR* Amiodarone 200 MG TABLET PO SCH (08:46)
[2017-10-15] MEDS: Sennosides/Docusate Sodium TABLET PO SCH ×2 (08:46→21:01)
[2017-10-15] MEDS: Pregabalin 75 MG CAPSULE PO SCH ×3 (08:47→21:06)
[2017-10-15] MEDS: Doxycycline 100 MG CAPSULE PO SCH (08:48)
[2017-10-15] MEDS: Cholecalciferol (D-3) 1,000 UNIT TABLET PO SCH (08:49)
[2017-10-15] MEDS: Furosemide 40 MG/4 ML VIAL IVP SCH ×2 (08:52→17:20)
[2017-10-15 11:02] LABS: Basophils % 0.3 %; Eosinophils # 0.2 K/mcL (0.0-0.6); Hematocrit 30.8 % (37.5-50.1); Hemoglobin 9.4 g/dL (12.9-16.9); INR 2.8; Immature Granulocytes % 1.5 % (0-4); Lymphocytes # 0.8 K/mcL (0.6-4.6); Lymphocytes % 8.7 %; Mean Corpuscular HGB Conc 30.5 g/dL (31.6-35.5); Mean Corpuscular Volume 81.9 fL (83.0-100.0); Mean Platelet Volume 10.4 fL (9.4-12.4); Monocytes # 0.8 K/mcL (0.0-1.3); Monocytes % 8.5 %; Neutrophils # 7.5 K/mcL (1.6-8.9); Nucleated Red Blood Cells 0.4 /100 WBC (0); Platelet Count 251 K/mcL (140-400); Prothrombin Time 30.7 Seconds (9.4-12.1); Red Blood Count 3.76 M/mcL (4.19-5.50); Red Cell Distribution Width 19.3 % (11.5-14.5)
[2017-10-15 11:22] LABS: BUN/Creatinine Ratio 21 (6-26); Blood Urea Nitrogen 20 mg/dL (8-23); Calcium 8.7 mg/dL (8.6-10.3); Carbon Dioxide 27 mEq/L (23-29); Chloride 98 mEq/L (98-107); Glucose 135 mg/dL (70-105); Osmolality,Calculated 281 (280-300); Potassium 4.2 mEq/L (3.5-5.1); Sodium 133 mEq/L (136-145); eGFR For African Americans > 60 (> 60); eGFR For Non-African Americans > 60 (> 60)
--- NOTE | 2017-10-15 15:38 | Internal Med Progress Note ---
Date of Encounter: 10/15/17 Time of Encounter: 09:30 - Assessment and plan (1) Atrial flutter with rapid ventricular response Current Visit: Yes Status: Acute Assessment and plan: Patient's rate has been in the 50s and 60s today. Electrophysiology has evaluated patient and they will continue the amiodarone and Lopressor. [facility] Coumadin has been stopped temporarily and we will monitor INR for LHC. EF currently 35-40% with global LV systolic dysfunction and regional variations. Device leads is visualized in the right atrium and right ventricle. 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 Cardiology discussing ischemic evaluation. TSH is elevated, he will need to follow with primary care for further evaluation when he is no longer acutely ill. (2) Diastolic CHF, acute on chronic Current Visit: Yes Status: Acute Assessment and plan: TTE completed 10/13 shows EF 35-40% with global LV systolic dysfunction. There is atypical septal motion consistent with postoperative status, moderately dilated and hypokinetic right ventricle. Mild TR, mild pulmonary hypertension as been a significant decrease in EF since last echo in May,. Coumadin has been held and LHC when INR is less than 1.8. INR 2.8 today, 10/15. Start heparin drip when INR less than 2.0. Lungs are clear and diminished, patient is requiring supplemental oxygen. Patient has no peripheral edema and denies cough. Continue telemetry. Continue oxygen to maintain sats greater than 92%. Continue IV Lasix 40 mg twice daily Cardiac diet, daily weights, I&O. Low-sodium diet LHC pending when INR 1.8, will recheck labs again in a.m. (3) Elevated troponin Current Visit: Yes Status: Acute Assessment and plan: Resolved. Plan as above. (4) Supratherapeutic INR Current Visit: Yes Status: Resolved Assessment and plan: INR 2.8 today. Coumadin has been held in an attempt to get it to 2.0 so LHC can be performed. Continue to monitor. (5) Anemia Current Visit: Yes Status: Acute Assessment and plan: Patient reports being started on iron supplements approximately 4-5 months ago. He reports that he is adherent and takes them daily. Pt has failed outpatient treatment. Hemoglobin has declined since admission, 10.0> 9.6> 8.9. Iron 12, % Sat 4. Venofer 400mg IV x 1 yesterday, pt till need to follow up with PCP and oncology after discharge. Qualifiers: Anemia type: other cause Other causes of anemia: other cause, not classified Qualified Code(s): D64.89 - Other specified anemias (6) CAD in [place] artery Current Visit: Yes Status: Acute Assessment and plan: Chronic. Continue amiodarone, Lipitor, Plavix and warfarin, beta cyn. Denies chest pain. Cardiology following. [facility] planned for tomorrow. (7) COPD (chronic obstructive pulmonary disease) Current Visit: Yes Status: Chronic Assessment and plan: Chronic. Acute exacerbation, improving. Continue albuterol inhaler, DuoNeb , Spiriva. Lungs diminished in all [place], faint wheezing heard in post bases. Pt is in no distress and is on 2L Qualifiers: COPD type: chronic bronchitis Chronic bronchitis type: simple Qualified Code(s): J41.0 - Simple chronic bronchitis (8) Hx of CABG Current Visit: No Status: Chronic Assessment and plan: Per patient history. (9) DVT prophylaxis Current Visit: No Status: Acute Assessment and plan: Patient is on warfarin, pharmacy to dose. Coumadin has been stopped. Will start Heparin gtt when INR 2.0 - Time Spent With Patient less than 15 minutes - Subjective Interval history: Patient was seen and assessed at bedside at 0930 AM. He is alert and oriented concerned about INR level for [facility] today. Patient denies headache or blurred vision. He denies any dizziness. His abdomen is mildly rounded and distended and he denies any abdominal pain, nausea, vomiting, or diarrhea. He denies chest pain, palpitations, or SOB today. - Constitutional Vitals: Temp Pulse Resp BP Pulse Ox 97.5 F L 75 16 106/71 95 10/15/17 11:53 10/15/17 11:53 10/15/17 11:53 10/15/17 11:53 10/15/17 11:53 General appearance: Present: cooperative, A&O X 3, pleasant, no acute distress, answers questions appropriately - Head Head exam: Present: atraumatic, normal inspection, normocephalic - Eye Eye exam: Present: conjuntiva pink, sclera anicteric - Neck Neck exam general surgery: Present: supple, trachea midline. Absent: lymphadenopathy - Respiratory Respiratory exam: Present: CTAB. Absent: accessory muscle use, rales, rhonchi, wheezes - Cardiovascular Cardiovascular exam: Present: RRR, +S1, +S2. Absent: diastolic murmur, gallop, rubs, systolic murmur - GI/Abdominal GI/Abdominal exam: Present: normal bowel sounds, soft. Absent: distended, hepatomegaly, tenderness - Extremities Exam Extremities exam: Present: normal inspection, warm, radial pulses palpable and symmetrical. Absent: calf tenderness, cyanotic, pedal edema - Neurological Exam Neurological exam: Present: alert, oriented X3, no focal deficits. Absent: pronater drift, facial droop, speech deficit - Skin Skin exam: Present: dry, intact, normal color, warm. Absent: rash Internal Medicine: Result - Labs CBC & Chem 7: 10/15/17 10:26 10/15/17 05:08 Labs: Short CBC 10/14/17 10/15/17 Range/Units 19:21 10:26 WBC 9.5 (4.3-11.1) K/mcL Hgb 9.3 L 9.4 L (12.9-16.9) g/dL Hct 29.8 L 30.8 L (37.5-50.1) % Plt Count 251 (140-400) K/mcL Neutrophils # 7.5 (1.6-8.9) K/mcL BMP 10/15/17 05:08 Sodium 133 L Potassium 4.2 Chloride 98 Carbon Dioxide 27 BUN 20 Creatinine 0.95 Glucose 135 H Calcium 8.7 - ABG Interpretation ABG results: PT/INR, D-dimer PT 30.7 Seconds (9.4-12.1) H 10/15/17 10:26 Consult Discharge Plan - Plan [facility]errals: [facility] [Primary Care Provider] -
--- NOTE | 2017-10-15 16:35 | Cardiology Progress Note ---
Date of Encounter: 10/15/17 Time of Encounter: 14:30 Assessment and Plan (1) Acute on chronic systolic CHF (congestive heart failure) Current Visit: Yes Status: Acute Per cardiology: -TTE completed this admission shows EF now reduced at 35-40%. Global left ventricular systolic dysfunction with regional variations. Atypical septal motion consistent with post-operative status. Indeterminate diastolic function. Moderately dilated and hypokinetic right ventricle. Moderate tricuspid regurgitation. Mild pulmonary hypertension. Estimated RVSP is 42 mmHg. -Last TTE 05/2017 showed EF 55-60%. -Ischemic evaluation is recommended. - We will need to hold coumadin. -LHC when INR less than 1.8. -Start heparin gtt when INR less than 2.0 due to history of CVA. -Will make NPO after midnight. -R/B/A of LHC discussed with [place] and he agrees to proceed. (2) Atrial flutter with rapid ventricular response Current Visit: Yes Status: Acute Per cardiology: -Device check showed underlying atrial flutter, HR 120's. -PPM changed to VVI and HR decreased to 70. Database Programmer Analyst discussed with Dr. Callaway, patient is a good candidate for atrial antitachycardia pacing. -Discussed with Dr. Callaway, patient needs to be on anticoagulation for at least three weeks prior to starting therapy. On 09/24/17 her was subtherapeutic, INR 1.6. -We will have him follow in 2 weeks in the cardiology office to make adjustments. -Average HR previous 12 hours noted to be 68. -Continue amiodarone and lopressor. Coumadin followed by the [place]. -Check TTE. Last TTE 06/19/17- EF 55-60%, moderate RV hypokenesis. Moderately dilated RA. Mild TR. Moderate PHTN. -EF now 35-40%. Global left ventricular systolic dysfunction with regional variations. We will discuss ischemic evaluation. 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 -TSH is elevated. Primary team following. (3) Atrial fibrillation Current Visit: No Status: Chronic Per cardiology: -H/o atrial fibrillation on coumadin. Follows with the coumadin clinic at the [place]. -Continue amiodarone and lopressor. Qualifiers: Atrial fibrillation type: paroxysmal Qualified Code(s): I48.0 - Paroxysmal atrial fibrillation (4) CAD (coronary artery disease) Current Visit: No Status: Chronic Per cardiology: -H/o CABG. [facility] 10/18/15 showed 2/2 patent bypass grafts. EF 45%. Continue plavix , statin and bb. Off asa to avoid triple therapy. -Denies chest pain. Qualifiers: Coronary Disease-Associated Artery/Lesion type: [place] artery [place] vs. transplanted heart: [place] heart Associated angina: without angina Qualified Code(s): I25.10 - Atherosclerotic heart disease of [place] coronary artery without angina pectoris Discussion w patient/family: The assessment and plan as outlined above was discussed with the patient who expressed understanding and agreement. All questions were answered. Thank you for involving us in the care of your patient. Please call with any questions. Discussed and reviewed with . Subjective Principal diagnosis: atrial flutter/ afib Interval history: Patient states he feels ok today. Denies chest pain. Objective Vital Signs, Last 4 Hours Temp Pulse Resp BP Pulse Ox 10/15/17 16:17 97.7 F 69 15 96/60 95 General: Conversant, No Apparent Distress HEENT: Atraumatic, Normocephaly, Mucus Membranes Moist Neck: No JVD, Normal carotid pulses Cardiac: Other (Irregularly irregular) Neuro: Alert and responsive, No focal deficits noted Abdomen: Soft, Non-Tender Skin: No rashes noted on visualized skin Musculoskeletal: No Chest Wall Tenderness Extremities: No Clubbing, No Cyanosis, No Edema, Normal Pulses Results 10/15/17 10:26 10/15/17 05:08 Lab Results Active Medications Acetaminophen (Tylenol) 650 mg PO Q6HR PRN PRN Reason: Mild Pain/Fever Stop: 04/13/18 20:32 Hydrocodone Bitart/Acetaminophen ([place] 5-325 Mg) 1 tab PO Q6HR PRN PRN Reason: Moderate Pain Stop: 04/13/18 20:32 Albuterol Sulfate (Albuterol Inhaler) 2 puff IH QID PRN PRN Reason: Shortness Of Breath Stop: 04/13/18 20:35 Albuterol/Ipratropium (Duoneb) 3 ml IH QID PRN PRN Reason: Cough/SOB Stop: 04/13/18 20:35 Last Admin: 10/15/17 08:16 Dose: 3 ml Amiodarone HCl (Cordarone) 200 mg PO DAILY PHILLY Stop: 04/13/18 23:24 Last Admin: 10/15/17 08:46 Dose: 200 mg Atorvastatin Calcium (Lipitor) 10 mg PO HS PHILLY Stop: 04/13/18 21:01 Last Admin: 10/14/17 21:33 Dose: 10 mg Bisacodyl (Dulcolax) 5 mg PO BID PRN PRN Reason: Constipation Stop: 04/13/18 20:35 Last Admin: 10/13/17 14:58 Dose: 5 mg Brimonidine Tartrate (Alphagan) 1 drop BOTH EYES TID PHILLY PRN Reason: Protocol Stop: 04/13/18 21:01 Last Admin: 10/15/17 14:59 Dose: Not Given Clopidogrel Bisulfate (Plavix) 75 mg PO DAILY PHILLY Stop: 04/14/18 09:01 Last Admin: 10/15/17 08:45 Dose: 75 mg Doxycycline Hyclate (Doxycycline) 100 mg PO DAILY PHILLY Stop: 04/14/18 09:01 Last Admin: 10/15/17 08:48 Dose: 100 mg Ferrous Sulfate (Ferrous Sulfate) 325 mg PO BIDWM PHILLY Stop: 04/13/18 21:01 Last Admin: 10/15/17 08:47 Dose: 325 mg Furosemide (Lasix) 40 mg IVP BIDDIURETIC PHILLY Stop: 04/13/18 21:01 Last Admin: 10/15/17 08:52 Dose: 40 mg Lactobacillus Acidophilus/Rhamnosus (Culturelle) 1 each PO DAILY PHILLY Stop: 04/14/18 09:01 Last Admin: 10/15/17 08:45 Dose: 1 each Latanoprost (Xalatan) 1 drop BOTH EYES HS PHILLY Stop: 04/13/18 21:01 Last Admin: 10/14/17 21:41 Dose: Not Given Levothyroxine Sodium (Synthroid) 50 mcg PO 0630 PHILLY Stop: 04/14/18 06:31 Last Admin: 10/15/17 06:00 Dose: 50 mcg Losartan Potassium (Cozaar) 50 mg PO DAILY PHILLY Stop: 04/15/18 09:01 Last Admin: 10/15/17 08:47 Dose: 50 mg Magnesium Hydroxide (Milk Of Magnesia Conc) 30 ml PO HS PRN PRN Reason: Constipation Stop: 04/13/18 20:35 Last Admin: 10/13/17 17:26 Dose: 30 ml Metoprolol Tartrate (Lopressor) 50 mg PO BID [facility] Stop: 04/13/18 23:31 Last Admin: 10/15/17 08:46 Dose: 50 mg Naloxone HCl (Narcan) 0.4 mg IVP Q2MIN PRN PRN Reason: SEE COMMENTS Stop: 04/13/18 20:32 Nitroglycerin (Nitroglycerin) 0.4 mg SL Q5M PRN PRN Reason: Chest Pain Stop: 04/13/18 20:35 Ondansetron HCl (Zofran) 4 mg IVP Q8HR PRN PRN Reason: Nausea And Vomiting Stop: 04/13/18 20:32 Oxycodone HCl (Oxycontin) 20 mg PO Q12H PRN PRN Reason: Pain Last Admin: 10/15/17 08:45 Dose: 20 mg Polyethylene Glycol (Miralax) 17 gm PO BID PRN PRN Reason: Constipation Stop: 04/13/18 20:35 Last Admin: 10/13/17 14:58 Dose: 17 gm Potassium Chloride (Potassium Chloride) 10 meq PO DAILY [facility] Stop: 04/14/18 09:01 Last Admin: 10/15/17 08:47 Dose: 10 meq Pregabalin (Lyrica) 150 mg PO TID [facility] Stop: 04/13/18 21:01 Last Admin: 10/15/17 14:50 Dose: 150 mg Promethazine HCl (Phenergan) 12.5 mg IVP Q6HR PRN PRN Reason: Nausea And Vomiting Stop: 04/13/18 20:32 Senna/Docusate Sodium (Senna Plus) 2 each PO BID PHILLY PRN Reason: Protocol Stop: 04/13/18 21:01 Last Admin: 10/15/17 08:46 Dose: Not Given Sertraline HCl (Zoloft) 100 mg PO QPM [facility] Stop: 04/14/18 18:01 Last Admin: 10/14/17 15:35 Dose: Not Given Simethicone (Gas-X) 160 mg PO TID PRN PRN Reason: GI Upset Stop: 04/13/18 20:35 Tiotropium [place] (Spiriva) 18 mcg IH DAILY [facility] Stop: 04/14/18 09:01 Last Admin: 02/15/18 08:16 Dose: Not Given Trazodone HCl (Trazodone) 50 mg PO HS PRN PRN Reason: Sleep Stop: 04/13/18 20:35 Vitamin D (Vitamin D) 1,000 unit PO DAILY PHILLY Stop: 04/14/18 09:01 Last Admin: 10/15/17 08:49 Dose: 1,000 unit Laboratory Tests 10/15/17 10/15/17 10/15/17 05:08 10:26 10:26 Hgb 9.4 L INR 2.8 Creatinine 0.95 - Imaging and Cardiology Chest Xray: report reviewed Echo: report reviewed - EKG Interpretation EKG results cardiology: other (Telemetry reviewed with average HR previous 12 hours noted to be 68, a.fib. Intermittent pacing. PVCs noted) Consult Discharge Plan - Plan Referrals: [facility] [Primary Care Provider] -
[2017-10-15] MEDS: Latanoprost 2.5 ML BOTTLE BOTH EYES SCH (21:01)
[2017-10-16] MEDS: Ipratropium/Albuterol Neb 3 ML IH PRN ×2 (00:04→08:13)
[2017-10-16] MEDS: traZODone 50 MG TABLET PO PRN (00:32)
[2017-10-16 08:08] LABS: INR 2.4; Prothrombin Time 26.5 Seconds (9.4-12.1)
[2017-10-16] MEDS: Tiotropium 18 MCG inhalation IH SCH (08:14)
[2017-10-16 08:31] LABS: BUN/Creatinine Ratio 22 (6-26); Blood Urea Nitrogen 20 mg/dL (8-23); Calcium 8.4 mg/dL (8.6-10.3); Carbon Dioxide 27 mEq/L (23-29); Chloride 101 mEq/L (98-107); Glucose 119 mg/dL (70-105); Osmolality,Calculated 282 (280-300); Potassium 3.9 mEq/L (3.5-5.1); Sodium 134 mEq/L (136-145); eGFR For African Americans > 60 (> 60); eGFR For Non-African Americans > 60 (> 60)
[2017-10-16 08:33] LABS: Basophils % 0.5 %; Eosinophils # 0.3 K/mcL (0.0-0.6); Eosinophils % 3.4 %; Hematocrit 27.9 % (37.5-50.1); Hemoglobin 8.9 g/dL (12.9-16.9); Immature Granulocytes % 0.9 % (0-4); Lymphocytes # 1.1 K/mcL (0.6-4.6); Lymphocytes % 13.8 %; Mean Corpuscular HGB Conc 31.9 g/dL (31.6-35.5); Mean Corpuscular Hemoglobin 25.9 pg (28.0-33.3); Mean Corpuscular Volume 81.1 fL (83.0-100.0); Mean Platelet Volume 10.2 fL (9.4-12.4); Monocytes # 0.8 K/mcL (0.0-1.3); Monocytes % 9.7 %; Neutrophils # 5.7 K/mcL (1.6-8.9); Nucleated Red Blood Cells 0.4 /100 WBC (0); Platelet Count 225 K/mcL (140-400); Red Blood Count 3.44 M/mcL (4.19-5.50); Red Cell Distribution Width 19.3 % (11.5-14.5); Segmented Neutrophils % 71.7 %
[2017-10-16] MEDS: Furosemide 40 MG/4 ML VIAL IVP SCH (09:08)
[2017-10-16] MEDS: Cholecalciferol (D-3) 1,000 UNIT TABLET PO SCH (09:09)
[2017-10-16] MEDS: Lactobacillus 1 EACH CAP.SPRINK PO SCH (09:09)
[2017-10-16] MEDS: *HR* Amiodarone 200 MG TABLET PO SCH (09:10)
[2017-10-16] MEDS: Pregabalin 75 MG CAPSULE PO SCH ×3 (09:10→21:16)
[2017-10-16] MEDS: Doxycycline 100 MG CAPSULE PO SCH (09:10)
[2017-10-16] MEDS: Sennosides/Docusate Sodium TABLET PO SCH ×2 (09:11→21:09)
[2017-10-16 10:05] LABS: Triiodothyronine (T3) Free 2.13 pg/mL (2.50-3.90)
--- NOTE | 2017-10-16 11:50 | Cardiology Progress Note ---
Date of Encounter: 10/16/17 Time of Encounter: 11:00 Assessment and Plan (1) Acute on chronic systolic CHF (congestive heart failure) Current Visit: Yes Status: Acute Per cardiology: -TTE completed this admission shows EF now reduced at 35-40%. Global left ventricular systolic dysfunction with regional variations. Atypical septal motion consistent with post-operative status. Indeterminate diastolic function. Moderately dilated and hypokinetic right ventricle. Moderate tricuspid regurgitation. Mild pulmonary hypertension. Estimated RVSP is 42 mmHg. -Last TTE 05/2017 showed EF 55-60%. -Ischemic evaluation is recommended. - We will need to hold coumadin. -LHC when INR less than 1.8. INR 2.4 today. -Euvolemic on exam. -Will switch lasix to po. -Start heparin gtt when INR less than 2.0 due to history of CVA. -Will make NPO after midnight. -R/B/A of [facility] discussed with Mr. Huddleston and he agrees to proceed. (2) Atrial flutter with rapid ventricular response Current Visit: Yes Status: Acute Per cardiology: -Device check showed underlying atrial flutter, HR 120's. -PPM changed to VVI and HR decreased to 70. Managing Manager discussed with Dr. Callaway, patient is a good candidate for atrial antitachycardia pacing. -Discussed with Dr. Callaway, patient needs to be on anticoagulation for at least three weeks prior to starting therapy. On 09/24/17 her was subtherapeutic, INR 1.6. -We will have him follow in 2 weeks in the cardiology office to make adjustments. -Average HR previous 12 hours noted to be 68. -Continue amiodarone and lopressor. Coumadin followed by the [facility]. -Check TTE. Last TTE 06/19/17- EF 55-60%, moderate RV hypokenesis. Moderately dilated RA. Mild TR. Moderate PHTN. -EF now 35-40%. Global left ventricular systolic dysfunction with regional variations. We will discuss ischemic evaluation. 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 -TSH is elevated. Primary team following. (3) Atrial fibrillation Current Visit: No Status: Chronic Per cardiology: -H/o atrial fibrillation on coumadin. Follows with the coumadin clinic at the [facility]. -Continue amiodarone and lopressor. Qualifiers: Atrial fibrillation type: paroxysmal Qualified Code(s): I48.0 - Paroxysmal atrial fibrillation (4) CAD (coronary artery disease) Current Visit: No Status: Chronic Per cardiology: -H/o CABG. [facility] 10/18/15 showed 2/2 patent bypass grafts. EF 45%. Continue plavix , statin and bb. Off asa to avoid triple therapy. -Denies chest pain. Qualifiers: Coronary Disease-Associated Artery/Lesion type: [place] artery [place] vs. transplanted heart: [place] heart Associated angina: without angina Qualified Code(s): I25.10 - Atherosclerotic heart disease of [place] coronary artery without angina pectoris Discussion w patient/family: The assessment and plan as outlined above was discussed with the patient who expressed understanding and agreement. All questions were answered. Thank you for involving us in the care of your patient. Please call with any questions. Discussed and reviewed with . Subjective Principal diagnosis: atrial flutter/ afib Interval history: Patient states he feels ok today. Denies chest pain. Patient's only complaint is that he is tired. Objective Vital Signs, Last 4 Hours Temp Pulse Resp BP Pulse Ox 10/16/17 11:26 97.8 F 75 14 118/61 92 10/16/17 08:15 16 99 General: Conversant, No Apparent Distress HEENT: Atraumatic, Normocephaly, Mucus Membranes Moist Neck: No JVD, Normal carotid pulses Cardiac: Normal S1 and S2, No Murmur, Other (Regularly irregular) Lungs: Normal Breath Sounds, No Wheeze, Rales, Rhonchi Neuro: Alert and responsive, No focal deficits noted Abdomen: Soft, Non-Tender Skin: No rashes noted on visualized skin Musculoskeletal: No Chest Wall Tenderness Extremities: No Clubbing, No Cyanosis, No Edema, Normal Pulses Results 10/16/17 08:04 10/16/17 08:04 Lab Results Active Medications Acetaminophen (Tylenol) 650 mg PO Q6HR PRN PRN Reason: Mild Pain/Fever Stop: 04/13/18 20:32 Hydrocodone Bitart/Acetaminophen ([place] 5-325 Mg) 1 tab PO Q6HR PRN PRN Reason: Moderate Pain Stop: 04/13/18 20:32 Albuterol Sulfate (Albuterol Inhaler) 2 puff IH QID PRN PRN Reason: Shortness Of Breath Stop: 04/13/18 20:35 Albuterol/Ipratropium (Duoneb) 3 ml IH QID PRN PRN Reason: Cough/SOB Stop: 04/13/18 20:35 Last Admin: 10/16/17 08:13 Dose: 3 ml Amiodarone HCl (Cordarone) 200 mg PO DAILY PHILLY Stop: 04/13/18 23:24 Last Admin: 10/16/17 09:10 Dose: 200 mg Atorvastatin Calcium (Lipitor) 10 mg PO HS PHILLY Stop: 04/13/18 21:01 Last Admin: 10/15/17 21:06 Dose: 10 mg Bisacodyl (Dulcolax) 5 mg PO BID PRN PRN Reason: Constipation Stop: 04/13/18 20:35 Last Admin: 10/13/17 14:58 Dose: 5 mg Brimonidine Tartrate (Alphagan) 1 drop BOTH EYES TID PHILLY PRN Reason: Protocol Stop: 04/13/18 21:01 Last Admin: 10/16/17 09:08 Dose: Not Given Clopidogrel Bisulfate (Plavix) 75 mg PO DAILY PHILLY Stop: 04/14/18 09:01 Last Admin: 10/16/17 09:09 Dose: 75 mg Doxycycline Hyclate (Doxycycline) 100 mg PO DAILY PHILLY Stop: 04/14/18 09:01 Last Admin: 10/16/17 09:10 Dose: 100 mg Ferrous Sulfate (Ferrous Sulfate) 325 mg PO BIDWM PHILLY Stop: 04/13/18 21:01 Last Admin: 10/16/17 09:08 Dose: 325 mg Furosemide (Lasix) 40 mg IVP BIDDIURETIC PHILLY Stop: 04/13/18 21:01 Last Admin: 10/16/17 09:08 Dose: 40 mg Lactobacillus Acidophilus/Rhamnosus (Culturelle) 1 each PO DAILY PHILLY Stop: 04/14/18 09:01 Last Admin: 10/16/17 09:09 Dose: 1 each Latanoprost (Xalatan) 1 drop BOTH EYES HS PHILLY Stop: 04/13/18 21:01 Last Admin: 10/15/17 21:01 Dose: Not Given Levothyroxine Sodium (Synthroid) 50 mcg PO 0630 PHILLY Stop: 04/14/18 06:31 Last Admin: 10/16/17 05:54 Dose: 50 mcg Losartan Potassium (Cozaar) 50 mg PO DAILY [facility] Stop: 04/15/18 09:01 Last Admin: 10/16/17 09:09 Dose: 50 mg Magnesium Hydroxide (Milk Of Magnesia Conc) 30 ml PO HS PRN PRN Reason: Constipation Stop: 04/13/18 20:35 Last Admin: 10/13/17 17:26 Dose: 30 ml Metoprolol Tartrate (Lopressor) 50 mg PO BID [facility] Stop: 04/13/18 23:31 Last Admin: 10/16/17 09:09 Dose: 50 mg Naloxone HCl (Narcan) 0.4 mg IVP Q2MIN PRN PRN Reason: SEE COMMENTS Stop: 04/13/18 20:32 Nitroglycerin (Nitroglycerin) 0.4 mg SL Q5M PRN PRN Reason: Chest Pain Stop: 04/13/18 20:35 Ondansetron HCl (Zofran) 4 mg IVP Q8HR PRN PRN Reason: Nausea And Vomiting Stop: 04/13/18 20:32 Oxycodone HCl (Oxycontin) 20 mg PO Q12H PRN PRN Reason: Pain Last Admin: 10/15/17 08:45 Dose: 20 mg Polyethylene Glycol (Miralax) 17 gm PO BID PRN PRN Reason: Constipation Stop: 04/13/18 20:35 Last Admin: 10/13/17 14:58 Dose: 17 gm Potassium Chloride (Potassium Chloride) 10 meq PO DAILY [facility] Stop: 04/14/18 09:01 Last Admin: 10/16/17 09:10 Dose: 10 meq Pregabalin (Lyrica) 150 mg PO TID [facility] Stop: 04/13/18 21:01 Last Admin: 10/16/17 09:10 Dose: 150 mg Promethazine HCl (Phenergan) 12.5 mg IVP Q6HR PRN PRN Reason: Nausea And Vomiting Stop: 04/13/18 20:32 Senna/Docusate Sodium (Senna Plus) 2 each PO BID PHILLY PRN Reason: Protocol Stop: 04/13/18 21:01 Last Admin: 10/16/17 09:11 Dose: Not Given Sertraline HCl (Zoloft) 100 mg PO QPM [facility] Stop: 04/14/18 18:01 Last Admin: 10/15/17 17:17 Dose: Not Given Simethicone (Gas-X) 160 mg PO TID PRN PRN Reason: GI Upset Stop: 04/13/18 20:35 Tiotropium [place] (Spiriva) 18 mcg IH DAILY PHILLY Stop: 04/14/18 09:01 Last Admin: 10/16/17 08:14 Dose: Not Given Trazodone HCl (Trazodone) 50 mg PO HS PRN PRN Reason: Sleep Stop: 04/13/18 20:35 Last Admin: 10/16/17 00:32 Dose: 50 mg Vitamin D (Vitamin D) 1,000 unit PO DAILY PHILLY Stop: 04/14/18 09:01 Last Admin: 10/16/17 09:09 Dose: 1,000 unit Laboratory Tests 10/16/17 07:46 INR 2.4 - Imaging and Cardiology Chest Xray: report reviewed Echo: report reviewed - EKG Interpretation EKG results cardiology: other (Telemetry reviewed with average HR previous 12 hours noted to be 70,paced rhyth,. PVCs noted.) Consult Discharge Plan - Plan [facility]: [facility] [Primary Care Provider] -
[2017-10-16] MEDS: *HR* OxyCODONE ER (12 HR) 20 MG TABLET PO PRN (12:51)
--- NOTE | 2017-10-16 16:27 | Internal Med Progress Note ---
Date of Encounter: 10/16/17 Time of Encounter: 10:20 - Assessment and plan (1) Atrial flutter with rapid ventricular response Current Visit: Yes Status: Acute Assessment and plan: Pt denies chest pain and is waiting on LHC. INR elevated above 2.0, will proceed after below 2.0. EF currently 35-40% with global LV systolic dysfunction and regional variations. Device leads is visualized in the right atrium and right ventricle. 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 TSH is elevated, he will need to follow with primary care for further evaluation when he is no longer acutely ill. (2) Diastolic CHF, acute on chronic Current Visit: Yes Status: Acute Assessment and plan: TTE completed 10/13 shows EF 35-40% with global LV systolic dysfunction. There is atypical septal motion consistent with postoperative status, moderately dilated and hypokinetic right ventricle. Mild TR, mild pulmonary hypertension as been a significant decrease in EF since last echo in May,. Coumadin has been held and LHC when INR is less than 1.8. INR 2.8 today, 10/15. Start heparin drip when INR less than 2.0. Lungs are clear and diminished, patient is requiring supplemental oxygen. Patient has +1 non-piitting bilateral peripheral edema and denies cough. Continue telemetry. Continue oxygen to maintain sats greater than 92%. Continue IV Lasix 40 mg twice daily Cardiac diet, daily weights, I&O. Low-sodium diet LHC pending when INR 1.8, will recheck labs again in a.m. (3) Supratherapeutic INR Current Visit: Yes Status: Resolved Assessment and plan: INR 2.4 today. Coumadin has been held in an attempt to get it to 2.0 so LHC can be performed. Start Heparin gtt when INR 2.0 Continue to monitor. (4) Anemia Current Visit: Yes Status: Acute Assessment and plan: Patient reports being started on iron supplements approximately 4-5 months ago. He reports that he is adherent and takes them daily. Pt has failed outpatient treatment. Hemoglobin has declined since admission, 10.0> 9.6> 8.9. Iron 12, % Sat 4. Venofer 400mg IV x 1 yesterday, pt till need to follow up with PCP and oncology after discharge. Continue to monitor. Qualifiers: Anemia type: other cause Other causes of anemia: other cause, not classified Qualified Code(s): D64.89 - Other specified anemias (5) CAD in [place] artery Current Visit: Yes Status: Acute Assessment and plan: Chronic. Continue amiodarone, Lipitor, Plavix and warfarin, beta cyn. Denies chest pain. Cardiology following. [facility] planned when INR < 2.0 (6) COPD (chronic obstructive pulmonary disease) Current Visit: Yes Status: Chronic Assessment and plan: Chronic. Acute exacerbation, improving. Continue albuterol inhaler, DuoNeb , Spiriva. Lungs diminished in [place], no wheezing, rales, ronchi. Pt is in no distress and is on 2L Qualifiers: COPD type: chronic bronchitis Chronic bronchitis type: simple Qualified Code(s): J41.0 - Simple chronic bronchitis (7) Hx of CABG Current Visit: No Status: Chronic Assessment and plan: Per patient history. (8) DVT prophylaxis Current Visit: No Status: Acute Assessment and plan: Patient is on warfarin, pharmacy to dose. Coumadin has been stopped. Will start Heparin gtt when INR 2.0 - Time Spent With Patient less than 15 minutes - Subjective Interval history: Patient was seen and assessed at bedside at 1020 AM. He is alert and oriented, drowsy. Pt denies chest pain, palpitations, or SOB. Patient denies headache or blurred vision. He denies any dizziness. His abdomen is mildly rounded and distended and he denies any abdominal pain, nausea, vomiting, or diarrhea. Pt states that he is getting restless waiting on [facility]. - Constitutional Vitals: Temp Pulse Resp BP Pulse Ox 97.8 F 70 14 115/72 97 10/16/17 15:20 10/16/17 15:20 10/16/17 15:20 10/16/17 15:20 10/16/17 15:20 General appearance: Present: cooperative, A&O X 3, pleasant, no acute distress, answers questions appropriately - Head Head exam: Present: atraumatic, normal inspection, normocephalic - Eye Eye exam: Present: normal appearance, conjuntiva pink, sclera anicteric - Neck Neck exam general surgery: Present: supple, trachea midline. Absent: lymphadenopathy, tenderness - Respiratory Respiratory exam: Present: CTAB. Absent: accessory muscle use, rales, respiratory distress, rhonchi, wheezes - Cardiovascular Cardiovascular exam: Present: RRR, +S1, +S2. Absent: diastolic murmur, gallop, rubs, systolic murmur - GI/Abdominal GI/Abdominal exam: Present: normal bowel sounds, soft. Absent: distended, hepatomegaly, tenderness - Extremities Exam Extremities exam: Present: normal capillary refill, warm, radial pulses palpable and symmetrical. Absent: calf tenderness, cyanotic, pedal edema, tenderness - Neurological Exam Neurological exam: Present: alert, oriented X3, no focal deficits. Absent: facial droop, speech deficit - Skin Skin exam: Present: dry, intact, normal color, warm. Absent: rash Internal Medicine: Result - Labs CBC & Chem 7: 10/16/17 08:04 10/16/17 08:04 Labs: Short CBC 10/16/17 Range/Units 08:04 WBC 7.9 (4.3-11.1) K/mcL Hgb 8.9 L (12.9-16.9) g/dL Hct 27.9 L (37.5-50.1) % Plt Count 225 (140-400) K/mcL Neutrophils # 5.7 (1.6-8.9) K/mcL BMP 10/16/17 08:04 Sodium 134 L Potassium 3.9 Chloride 101 Carbon Dioxide 27 BUN 20 Creatinine 0.90 Glucose 119 H Calcium 8.4 L - ABG Interpretation ABG results: PT/INR, D-dimer PT 26.5 Seconds (9.4-12.1) H 10/16/17 07:46 Consult Discharge Plan - Plan [facility]: [facility] [Primary Care Provider] -
[2017-10-16] MEDS: Furosemide 40 MG TABLET PO SCH (17:41)
[2017-10-16] MEDS: Latanoprost 2.5 ML BOTTLE BOTH EYES SCH (21:09)
[2017-10-17 05:40] LABS: Hematocrit 29.1 % (37.5-50.1); Hemoglobin 9.1 g/dL (12.9-16.9); Mean Corpuscular HGB Conc 31.3 g/dL (31.6-35.5); Mean Corpuscular Hemoglobin 25.9 pg (28.0-33.3); Mean Corpuscular Volume 82.9 fL (83.0-100.0); Mean Platelet Volume 10.7 fL (9.4-12.4); Platelet Count 253 K/mcL (140-400); Red Blood Count 3.51 M/mcL (4.19-5.50); Red Cell Distribution Width 19.9 % (11.5-14.5)
[2017-10-17 05:47] LABS: Prothrombin Time 21.5 Seconds (9.4-12.1)
[2017-10-17 06:04] LABS: BUN/Creatinine Ratio 19 (6-26); Blood Urea Nitrogen 22 mg/dL (8-23); Calcium 8.6 mg/dL (8.6-10.3); Carbon Dioxide 27 mEq/L (23-29); Chloride 102 mEq/L (98-107); Glucose 146 mg/dL (70-105); Osmolality,Calculated 288 (280-300); Potassium 3.7 mEq/L (3.5-5.1); Sodium 136 mEq/L (136-145); eGFR For African Americans > 60 (> 60); eGFR For Non-African Americans > 60 (> 60)
[2017-10-17] MEDS: Tiotropium 18 MCG inhalation IH SCH (07:41)
[2017-10-17] MEDS: Ipratropium/Albuterol Neb 3 ML IH PRN (07:41)
[2017-10-17] MEDS: Pregabalin 75 MG CAPSULE PO SCH ×3 (08:26→20:38)
[2017-10-17] MEDS: Cholecalciferol (D-3) 1,000 UNIT TABLET PO SCH (08:26)
[2017-10-17] MEDS: Furosemide 40 MG TABLET PO SCH ×2 (08:26→17:56)
[2017-10-17] MEDS: *HR* Amiodarone 200 MG TABLET PO SCH (08:26)
[2017-10-17] MEDS: Lactobacillus 1 EACH CAP.SPRINK PO SCH (08:27)
[2017-10-17] MEDS: Doxycycline 100 MG CAPSULE PO SCH (08:27)
[2017-10-17] MEDS: Sennosides/Docusate Sodium TABLET PO SCH ×2 (08:27→20:39)
[2017-10-17] MEDS: *HR* OxyCODONE ER (12 HR) 20 MG TABLET PO PRN (08:33)
--- NOTE | 2017-10-17 09:52 | Cardiology Progress Note ---
Date of Encounter: 10/17/17 Time of Encounter: 09:00 Assessment and Plan (1) Acute on chronic systolic CHF (congestive heart failure) Current Visit: Yes Status: Acute Per cardiology: -TTE completed this admission shows EF now reduced at 35-40%. Global left ventricular systolic dysfunction with regional variations. Atypical septal motion consistent with post-operative status. Indeterminate diastolic function. Moderately dilated and hypokinetic right ventricle. Moderate tricuspid regurgitation. Mild pulmonary hypertension. Estimated RVSP is 42 mmHg. -Last TTE 05/2017 showed EF 55-60%. -Ischemic evaluation is recommended. - We will need to hold coumadin. -LHC when INR less than 1.8. INR 2 today. -Euvolemic on exam. -CUrrently net negative 2300ml. -Start heparin gtt when INR less than 2.0 due to history of CVA. -Will make NPO after midnight. -R/B/A of [facility] discussed with Huddleston and he agrees to proceed. (2) Atrial flutter with rapid ventricular response Current Visit: Yes Status: Acute Per cardiology: -Device check showed underlying atrial flutter, HR 120's. -PPM changed to VVI and HR decreased to 70. [employer] Priming Operator discussed with Dr. Callaway, patient is a good candidate for atrial antitachycardia pacing. -Discussed with Dr. Callaway, patient needs to be on anticoagulation for at least three weeks prior to starting therapy. On 09/24/17 her was subtherapeutic, INR 1.6. -We will have him follow in 2 weeks in the cardiology office to make adjustments. -Average HR previous 12 hours noted to be 67. (3) Atrial fibrillation Current Visit: No Status: Chronic Per cardiology: -H/o atrial fibrillation on coumadin. Follows with the [facility] clinic [facility] the [facility]. -Continue amiodarone and lopressor. Qualifiers: Atrial fibrillation type: paroxysmal Qualified Code(s): I48.0 - Paroxysmal atrial fibrillation (4) CAD (coronary artery disease) Current Visit: No Status: Chronic Per cardiology: -H/o CABG. [facility] 10/18/15 showed 2/2 patent bypass grafts. EF 45%. Continue plavix , statin and bb. Off asa to avoid triple therapy. -Denies chest pain. Qualifiers: Coronary Disease-Associated Artery/Lesion type: [place] artery [place] vs. transplanted heart: [place] heart Associated angina: without angina Qualified Code(s): I25.10 - Atherosclerotic heart disease of [place] coronary artery without angina pectoris Discussion w patient/family: The assessment and plan as outlined above was discussed with the patient who expressed understanding and agreement. All questions were answered. Thank you for involving us in the care of your patient. Please call with any questions. Discussed and reviewed with . Subjective Principal diagnosis: atrial flutter/ afib Interval history: Patient states he feels ok today. Denies chest pain. Patient anxious to go home. Objective Vital Signs, Last 4 Hours Temp Pulse Resp BP Pulse Ox 10/17/17 07:41 16 96 10/17/17 07:35 97.5 F L 60 16 103/58 96 General: Conversant, No Apparent Distress HEENT: Atraumatic, Normocephaly, Mucus Membranes Moist Neck: No JVD, Normal carotid pulses Cardiac: Reg Rate and Rhythm, Normal S1 and S2, No Murmur Lungs: Normal Breath Sounds, No Wheeze, Rales, Rhonchi Neuro: Alert and responsive, No focal deficits noted Abdomen: Soft, Non-Tender Skin: No rashes noted on visualized skin Musculoskeletal: No Chest Wall Tenderness Extremities: No Clubbing, No Cyanosis, No Edema, Normal Pulses Results 10/17/17 04:26 10/17/17 04:26 Lab Results Active Medications Acetaminophen (Tylenol) 650 mg PO Q6HR PRN PRN Reason: Mild Pain/Fever Stop: 04/13/18 20:32 Hydrocodone Bitart/Acetaminophen ([place] 5-325 Mg) 1 tab PO Q6HR PRN PRN Reason: Moderate Pain Stop: 04/13/18 20:32 Albuterol Sulfate (Albuterol Inhaler) 2 puff IH QID PRN PRN Reason: Shortness Of Breath Stop: 04/13/18 20:35 Albuterol/Ipratropium (Duoneb) 3 ml IH QID PRN PRN Reason: Cough/SOB Stop: 04/13/18 20:35 Last Admin: 10/17/17 07:41 Dose: 3 ml Amiodarone HCl (Cordarone) 200 mg PO DAILY PHILLY Stop: 04/13/18 23:24 Last Admin: 10/17/17 08:26 Dose: 200 mg Atorvastatin Calcium (Lipitor) 10 mg PO HS PHILLY Stop: 04/13/18 21:01 Last Admin: 10/16/17 21:16 Dose: 10 mg Bisacodyl (Dulcolax) 5 mg PO BID PRN PRN Reason: Constipation Stop: 04/13/18 20:35 Last Admin: 10/13/17 14:58 Dose: 5 mg Brimonidine Tartrate (Alphagan) 1 drop BOTH EYES TID PHILLY PRN Reason: Protocol Stop: 04/13/18 21:01 Last Admin: 10/17/17 08:36 Dose: Not Given Clopidogrel Bisulfate (Plavix) 75 mg PO DAILY PHILLY Stop: 04/14/18 09:01 Last Admin: 10/17/17 08:27 Dose: 75 mg Doxycycline Hyclate (Doxycycline) 100 mg PO DAILY PHILLY Stop: 04/14/18 09:01 Last Admin: 10/17/17 08:27 Dose: 100 mg Ferrous Sulfate (Ferrous Sulfate) 325 mg PO BIDWM PHILLY Stop: 04/13/18 21:01 Last Admin: 10/17/17 08:27 Dose: 325 mg Furosemide (Lasix) 40 mg PO BIDDIURETIC PHILLY Stop: 04/17/18 17:01 Last Admin: 10/17/17 08:26 Dose: 40 mg Lactobacillus Acidophilus/Rhamnosus (Culturelle) 1 each PO DAILY PHILLY Stop: 04/14/18 09:01 Last Admin: 10/17/17 08:27 Dose: 1 each Latanoprost (Xalatan) 1 drop BOTH EYES HS PHILLY Stop: 04/13/18 21:01 Last Admin: 10/16/17 21:09 Dose: Not Given Levothyroxine Sodium (Synthroid) 50 mcg PO 0630 PHILLY Stop: 04/14/18 06:31 Last Admin: 10/17/17 06:00 Dose: 50 mcg Losartan Potassium (Cozaar) 50 mg PO DAILY PHILLY Stop: 04/15/18 09:01 Last Admin: 10/17/17 08:27 Dose: Not Given Magnesium Hydroxide (Milk Of Magnesia Conc) 30 ml PO HS PRN PRN Reason: Constipation Stop: 04/13/18 20:35 Last Admin: 10/13/17 17:26 Dose: 30 ml Metoprolol Tartrate (Lopressor) 50 mg PO BID PHILLY Stop: 04/13/18 23:31 Last Admin: 10/17/17 08:27 Dose: 50 mg Naloxone HCl (Narcan) 0.4 mg IVP Q2MIN PRN PRN Reason: SEE COMMENTS Stop: 04/13/18 20:32 Nitroglycerin (Nitroglycerin) 0.4 mg SL Q5M PRN PRN Reason: Chest Pain Stop: 04/13/18 20:35 Ondansetron HCl (Zofran) 4 mg IVP Q8HR PRN PRN Reason: Nausea And Vomiting Stop: 04/13/18 20:32 Oxycodone HCl (Oxycontin) 20 mg PO Q12H PRN PRN Reason: Pain Last Admin: 10/17/17 08:33 Dose: 20 mg Polyethylene Glycol (Miralax) 17 gm PO BID PRN PRN Reason: Constipation Stop: 04/13/18 20:35 Last Admin: 10/13/17 14:58 Dose: 17 gm Potassium Chloride (Potassium Chloride) 10 meq PO DAILY [facility]ILLY Stop: 04/14/18 09:01 Last Admin: 10/17/17 08:26 Dose: 10 meq Pregabalin (Lyrica) 150 mg PO TID [facility] Stop: 04/13/18 21:01 Last Admin: 10/17/17 08:26 Dose: 150 mg Promethazine HCl (Phenergan) 12.5 mg IVP Q6HR PRN PRN Reason: Nausea And Vomiting Stop: 04/13/18 20:32 Senna/Docusate Sodium (Senna Plus) 2 each PO BID PHILLY PRN Reason: Protocol Stop: 04/13/18 21:01 Last Admin: 10/17/17 08:27 Dose: 2 each Sertraline HCl (Zoloft) 100 mg PO QPM [facility] Stop: 04/14/18 18:01 Last Admin: 10/16/17 17:39 Dose: Not Given Simethicone (Gas-X) 160 mg PO TID PRN PRN Reason: GI Upset Stop: 04/13/18 20:35 Tiotropium [place] (Spiriva) 18 mcg IH DAILY [facility] Stop: 04/14/18 09:01 Last Admin: 10/17/17 07:41 Dose: Not Given Trazodone HCl (Trazodone) 50 mg PO HS PRN PRN Reason: Sleep Stop: 04/13/18 20:35 Last Admin: 10/16/17 00:32 Dose: 50 mg Vitamin D (Vitamin D) 1,000 unit PO DAILY [facility]ILLY Stop: 04/14/18 09:01 Last Admin: 10/17/17 08:26 Dose: 1,000 unit Laboratory Tests 10/17/17 10/17/17 10/17/17 04:26 04:26 04:26 Hgb 9.1 L INR 2.0 Creatinine 1.13 - Imaging and Cardiology Chest Xray: report reviewed Echo: report reviewed - EKG Interpretation EKG results cardiology: other (Telemetry reviewed with average HR previous 12 hours noted to be 67, paced rhythm. PVCs noted.) Consult Discharge Plan - Plan [facility]errals: [facility] [Primary Care Provider] -
[2017-10-17 12:07] LABS: INR 1.9; Prothrombin Time 21.1 Seconds (9.4-12.1)
[2017-10-17] MEDS ORDERED: *HR* Heparin 5,000 UNIT/ML VIAL IVP PRN ×2 (13:19)
--- NOTE | 2017-10-17 13:20 | Event Note ---
Date of Encounter: 10/17/17 Time of Encounter: 13:20 - Cardiology Event Note Repeat INR resulted at 1.9. Will start heparin drip for bridging. WIll continue to monitor.
[2017-10-17 13:32] LABS: Activated Partial Thrombo Time 34.5 Seconds (26.0-36.0)
--- NOTE | 2017-10-17 13:45 | Internal Med Progress Note ---
Date of Encounter: 10/17/17 Time of Encounter: 08:50 - Assessment and plan (1) Atrial flutter with rapid ventricular response Current Visit: Yes Status: Acute Assessment and plan: Pt denies chest pain and is waiting on [facility]. INR 1.9, heparin gtt started. EF currently 35-40% with global LV systolic dysfunction and regional variations. Device leads is visualized in the right atrium and right ventricle. 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 TSH is elevated, he will need to follow with primary care for further evaluation when he is no longer acutely ill. (2) Diastolic CHF, acute on chronic Current Visit: Yes Status: Acute Assessment and plan: TTE completed 10/13 shows EF 35-40% with global LV systolic dysfunction. There is atypical septal motion consistent with postoperative status, moderately dilated and hypokinetic right ventricle. Mild TR, mild pulmonary hypertension as been a significant decrease in EF since last echo in May,. Coumadin has been held and [facility] when INR is less than 1.8. INR 1.9. Heparin gtt started by cardiology. Lungs are clear and diminished, patient is requiring supplemental oxygen at 2L n /c. Patient has +1 non-piitting bilateral peripheral edema and denies cough. Continue telemetry. Continue oxygen to maintain sats greater than 92%. Continue IV Lasix 40 mg twice daily Cardiac diet, daily weights, I&O. Low-sodium diet [facility] pending when INR 1.8, will recheck labs again in a.m. (3) Anemia Current Visit: Yes Status: Acute Assessment and plan: Patient reports being started on iron supplements approximately 4-5 months ago. He reports that he is adherent and takes them daily. Pt has failed outpatient treatment. Hemoglobin has declined since admission, 10.0> 9.6> 8.9> 9.1 Iron 12, % Sat 4. Venofer 400mg IV x 1 infuse 10/14. Pt will need to follow up with PCP and oncology after discharge. Continue to monitor. Qualifiers: Anemia type: other cause Other causes of anemia: other cause, not classified Qualified Code(s): D64.89 - Other specified anemias (4) CAD in [place] artery Current Visit: Yes Status: Acute Assessment and plan: Chronic. Continue amiodarone, Lipitor, Plavix and warfarin, beta cyn. Denies chest pain. Cardiology following. [facility] planned for tomorrow or Thursday. (5) COPD (chronic obstructive pulmonary disease) Current Visit: Yes Status: Chronic Assessment and plan: Chronic. Acute exacerbation, improved. Continue albuterol inhaler, DuoNeb , Spiriva. Lungs diminished in all post [place], no wheezing, rales, ronchi. Pt is in no distress and is on 2L Qualifiers: COPD type: chronic bronchitis Chronic bronchitis type: simple Qualified Code(s): J41.0 - Simple chronic bronchitis (6) Hx of CABG Current Visit: No Status: Chronic Assessment and plan: Per patient history. Continue home medications Continue telemetry (7) DVT prophylaxis Current Visit: No Status: Acute Assessment and plan: Patient is on warfarin, pharmacy to dose. Coumadin has been stopped. Pt on Heparin gtt - Time Spent With Patient less than 15 minutes - Subjective Interval history: Patient was seen and assessed at bedside at 0850 AM. He is alert and oriented, pleasant, smiling. Pt denies chest pain, palpitations, or SOB. Patient denies headache or blurred vision. He denies any dizziness, denies any abdominal pain , nausea, vomiting, or diarrhea. Patient is aware of repeat INR, cardiology is starting heparin drip. He is aware that [facility] might be tomorrow or Thursday. - Constitutional Vitals: Temp Pulse Resp BP Pulse Ox 97.5 F L 60 17 107/65 92 10/17/17 12:01 10/17/17 12:10/17/17 12:01 10/17/17 12:10/17/17 12:01 General appearance: Present: cooperative, A&O X 3, pleasant, no acute distress, answers questions appropriately - Head Head exam: Present: atraumatic, normal inspection, normocephalic - Eye Eye exam: Present: normal appearance, conjuntiva pink, sclera anicteric - Neck Neck exam general surgery: Present: supple, trachea midline. Absent: lymphadenopathy, tenderness - Respiratory Respiratory exam: Present: decreased breath sounds, CTAB. Absent: accessory muscle use, chest wall tenderness, rales, respiratory distress, rhonchi, wheezes - Cardiovascular Cardiovascular exam: Present: RRR, +S1, +S2. Absent: diastolic murmur, gallop, rubs, systolic murmur - GI/Abdominal GI/Abdominal exam: Present: normal bowel sounds, soft. Absent: distended, hepatomegaly, tenderness - Extremities Exam Extremities exam: Present: normal capillary refill, warm, radial pulses palpable and symmetrical. Absent: calf tenderness, cyanotic, pedal edema, tenderness - Neurological Exam Neurological exam: Present: alert, oriented X3, no focal deficits, strengths equal and symetr throughout. Absent: facial droop, speech deficit - Skin Skin exam: Present: dry, intact, normal color, warm. Absent: rash Internal Medicine: Result - Labs CBC & Chem 7: 10/17/17 04:26 10/17/17 04:26 Labs: Short CBC 10/17/17 Range/Units 04:26 WBC 7.6 (4.3-11.1) K/mcL Hgb 9.1 L (12.9-16.9) g/dL Hct 29.1 L (37.5-50.1) % Plt Count 253 (140-400) K/mcL [facility] 10/17/17 04:26 Sodium 136 Potassium 3.7 Chloride 102 Carbon Dioxide 27 BUN 22 Creatinine 1.13 Glucose 146 H Calcium 8.6 - ABG Interpretation ABG results: PT/INR, D-dimer PT 21.1 Seconds (9.4-12.1) H 10/17/17 11:42 Consult Discharge Plan - Plan [facility]errals: [facility] [Primary Care Provider] -
[2017-10-17] MEDS: Heparin 25,000 UNIT/500 ML D5W 25,000 UNIT/500 ML BAG IVC SCH (14:52)
[2017-10-17] MEDS: traZODone 50 MG TABLET PO PRN (20:37)
[2017-10-17] MEDS: Latanoprost 2.5 ML BOTTLE BOTH EYES SCH (20:39)
[2017-10-18 05:19] LABS: Hematocrit 28.4 % (37.5-50.1); Hemoglobin 8.9 g/dL (12.9-16.9); Mean Corpuscular HGB Conc 31.3 g/dL (31.6-35.5); Mean Platelet Volume 10.4 fL (9.4-12.4); Platelet Count 213 K/mcL (140-400); Red Blood Count 3.42 M/mcL (4.19-5.50); Red Cell Distribution Width 20.8 % (11.5-14.5)
[2017-10-18 05:22] LABS: Prothrombin Time 21.6 Seconds (9.4-12.1)
[2017-10-18 05:39] LABS: BUN/Creatinine Ratio 22 (6-26); Blood Urea Nitrogen 23 mg/dL (8-23); Calcium 8.5 mg/dL (8.6-10.3); Carbon Dioxide 28 mEq/L (23-29); Chloride 101 mEq/L (98-107); Glucose 138 mg/dL (70-105); Osmolality,Calculated 284 (280-300); Sodium 134 mEq/L (136-145); eGFR For African Americans > 60 (> 60); eGFR For Non-African Americans > 60 (> 60)
[2017-10-18 05:40] LABS: Activated Partial Thrombo Time 120.1 Seconds (26.0-36.0)
[2017-10-18 05:49] LABS: Heparin anti-factor XA UFH 0.4 IU/mL (0.30-0.70)
[2017-10-18] MEDS: Ipratropium/Albuterol Neb 3 ML IH PRN ×2 (07:34→19:49)
[2017-10-18] MEDS: Tiotropium 18 MCG inhalation IH SCH (07:45)
[2017-10-18] MEDS: Sennosides/Docusate Sodium TABLET PO SCH ×2 (08:54→20:46)
[2017-10-18] MEDS: Furosemide 40 MG TABLET PO SCH ×2 (08:54→16:22)
[2017-10-18] MEDS: *HR* Amiodarone 200 MG TABLET PO SCH (08:54)
[2017-10-18] MEDS: Lactobacillus 1 EACH CAP.SPRINK PO SCH (08:54)
[2017-10-18] MEDS: Cholecalciferol (D-3) 1,000 UNIT TABLET PO SCH (08:54)
[2017-10-18] MEDS: Doxycycline 100 MG CAPSULE PO SCH (08:54)
[2017-10-18] MEDS: Pregabalin 75 MG CAPSULE PO SCH ×3 (08:55→20:43)
[2017-10-18] MEDS: Heparin 25,000 UNIT/500 ML D5W 25,000 UNIT/500 ML BAG IVC SCH (10:07)
--- NOTE | 2017-10-18 10:07 | Internal Med Progress Note ---
Date of Encounter: 10/18/17 Time of Encounter: 08:25 - Assessment and plan (1) Atrial flutter with rapid ventricular response Current Visit: Yes Status: Acute Assessment and plan: Pt denies chest pain and is waiting on [facility]. INR 2.0, heparin gtt started. EF currently 35-40% with global LV systolic dysfunction and regional variations. Device leads is visualized in the right atrium and right ventricle. 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 TSH is elevated. Free T4 1.12 WNL, Free T3 2.13, mildly decreased. He will need to follow with primary care for further evaluation when he is no longer acutely ill. (2) Diastolic CHF, acute on chronic Current Visit: Yes Status: Acute Assessment and plan: Heparin gtt started by cardiology in preparation for [facility]. Lungs are clear and diminished, patient is requiring supplemental oxygen at 2L n /c. Patient has +1 non-piitting bilateral peripheral edema and denies cough. Continue telemetry. Continue oxygen to maintain sats greater than 92%. Continue IV Lasix 40 mg twice daily Cardiac diet, daily weights, I&O. Low-sodium diet [facility] planned for tomorrow 10/19. (3) Anemia Current Visit: Yes Status: Acute Assessment and plan: Hemoglobin unchanged since arrival, stable. Iron 12, % Sat 4. Venofer 400mg IV x 1 infuse 10/14. Pt will need to follow up with PCP and oncology after discharge. 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 Continue to monitor. Qualifiers: Anemia type: other cause Other causes of anemia: other cause, not classified Qualified Code(s): D64.89 - Other specified anemias (4) CAD in [place] artery Current Visit: Yes Status: Acute Assessment and plan: Chronic. Continue amiodarone, Lipitor, Plavix and warfarin, beta cyn. Heparin gtt currently, monitor labs. Denies chest pain. Cardiology following. [facility] planned for tomorrow or Thursday. (5) COPD (chronic obstructive pulmonary disease) Current Visit: Yes Status: Chronic Assessment and plan: Chronic. Acute exacerbation on admission, improved. Continue albuterol inhaler, DuoNeb , Spiriva. Lungs diminished in all [place], no wheezing, rales, ronchi. Pt is in no distress and is on 2L 02/NC 02 sats with VS Qualifiers: COPD type: chronic bronchitis Chronic bronchitis type: simple Qualified Code(s): J41.0 - Simple chronic bronchitis (6) Hx of CABG Current Visit: No Status: Chronic Assessment and plan: Per patient history. Continue home medications Continue telemetry Cardiology following, plan as above. (7) DVT prophylaxis Current Visit: No Status: Acute Assessment and plan: Pt on Heparin gtt. Continue to encourage ambulation. - Time Spent With Patient less than 15 minutes - Subjective Interval history: Patient was seen and assessed at bedside at 0825 AM. He is alert and oriented. Pt denies chest pain, palpitations, or SOB. Patient denies headache or blurred vision. He denies any dizziness, denies any abdominal pain, nausea, vomiting, or diarrhea. Pt states that he has been up and ambulating with walker. Pt is restless and tired of being in the hospital. He is aware that [facility] is tomorrow. - Constitutional Vitals: Temp Pulse Resp BP Pulse Ox 97.4 F L 60 16 109/63 97 10/18/17 07:47 10/18/17 07:47 10/18/17 07:47 10/18/17 07:47 10/18/17 09:06 General appearance: Present: cooperative, A&O X 3, pleasant, no acute distress, answers questions appropriately - Head Head exam: Present: atraumatic, normal inspection, normocephalic - Eye Eye exam: Present: normal appearance, conjuntiva pink, sclera anicteric - Neck Neck exam general surgery: Present: supple, trachea midline. Absent: lymphadenopathy - Respiratory Respiratory exam: Present: CTAB. Absent: accessory muscle use, rales, rhonchi, wheezes - Cardiovascular Cardiovascular exam: Present: RRR, +S1, +S2. Absent: diastolic murmur, gallop, rubs, systolic murmur - GI/Abdominal GI/Abdominal exam: Present: normal bowel sounds, soft. Absent: distended, hepatomegaly, tenderness - Extremities Exam Extremities exam: Present: normal capillary refill, normal inspection, warm, radial pulses palpable and symmetrical. Absent: calf tenderness, cyanotic, pedal edema, tenderness - Neurological Exam Neurological exam: Present: alert, oriented X3, no focal deficits. Absent: facial droop, speech deficit - Skin Skin exam: Present: dry, intact, normal color, warm. Absent: rash Internal Medicine: Result - Labs CBC & Chem 7: 10/18/17 05:02 10/18/17 05:02 Labs: Short CBC 10/18/17 Range/Units 05:02 WBC 6.9 (4.3-11.1) K/mcL Hgb 8.9 L (12.9-16.9) g/dL Hct 28.4 L (37.5-50.1) % Plt Count 213 (140-400) K/mcL BMP 10/18/17 05:02 Sodium 134 L Potassium 4.0 Chloride 101 Carbon Dioxide 28 BUN 23 Creatinine 1.03 Glucose 138 H Calcium 8.5 L - ABG Interpretation ABG results: PT/INR, D-dimer PT 21.6 Seconds (9.4-12.1) H 10/18/17 05:02 Consult Discharge Plan - Plan [facility]errals: [facility] [Primary Care Provider] -
--- NOTE | 2017-10-18 11:34 | Cardiology Progress Note ---
Date of Encounter: 10/18/17 Time of Encounter: 08:45 Assessment and Plan (1) Acute on chronic systolic CHF (congestive heart failure) Current Visit: Yes Status: Acute Per cardiology: -TTE completed this admission shows EF now reduced at 35-40%. Global left ventricular systolic dysfunction with regional variations. Atypical septal motion consistent with post-operative status. Indeterminate diastolic function. Moderately dilated and hypokinetic right ventricle. Moderate tricuspid regurgitation. Mild pulmonary hypertension. Estimated RVSP is 42 mmHg. -Last TTE 05/2017 showed EF 55-60%. -Ischemic evaluation is recommended. - We will need to hold coumadin. -Euvolemic on exam. -CUrrently net negative 2400 -Currenlty on heparin drip, INR 1.9 yesterday afternoon. -Will make NPO after midnight. -R/B/A of [facility] discussed with [place] and he agrees to proceed. (2) Atrial flutter with rapid ventricular response Current Visit: Yes Status: Acute Per cardiology: -Device check showed underlying atrial flutter, HR 120's. -PPM changed to VVI and HR decreased to 70. Pain Coordinator discussed with Dr. Callaway, patient is a good candidate for atrial antitachycardia pacing. -Discussed with Dr. Callaway, patient needs to be on anticoagulation for at least three weeks prior to starting therapy. On 09/24/17 her was subtherapeutic, INR 1.6. -We will have him follow in 2 weeks in the cardiology office to make adjustments. -Average HR previous 12 hours noted to be 60. (3) Atrial fibrillation Current Visit: No Status: Chronic Per cardiology: -H/o atrial fibrillation on coumadin. Follows with the coumadin clinic at the [place]. -Continue amiodarone and lopressor. Qualifiers: Atrial fibrillation type: paroxysmal Qualified Code(s): I48.0 - Paroxysmal atrial fibrillation (4) CAD (coronary artery disease) Current Visit: No Status: Chronic Per cardiology: -H/o CABG. [facility] 10/18/15 showed 2/2 patent bypass grafts. EF 45%. Continue plavix , statin and bb. Off asa to avoid triple therapy. -Denies chest pain. Qualifiers: Coronary Disease-Associated Artery/Lesion type: [place] artery [place] vs. transplanted heart: [place] heart Associated angina: without angina Qualified Code(s): I25.10 - Atherosclerotic heart disease of [place] coronary artery without angina pectoris Discussion w patient/family: The assessment and plan as outlined above was discussed with the patient who expressed understanding and agreement. All questions were answered. Thank you for involving us in the care of your patient. Please call with any questions. Discussed and reviewed with . Subjective Principal diagnosis: atrial flutter/ afib Interval history: Patient states he feels ok today. Denies chest pain. Patient anxious to go home. Objective Vital Signs, Last 4 Hours Temp Pulse Resp BP Pulse Ox 10/18/17 09:06 97 10/18/17 07:47 97.4 F L 60 16 109/63 97 10/18/17 07:34 16 97 General: Conversant, No Apparent Distress HEENT: Atraumatic, Normocephaly, Mucus Membranes Moist Neck: No JVD, Normal carotid pulses Cardiac: Reg Rate and Rhythm, Normal S1 and S2, No Murmur Lungs: Normal Breath Sounds, No Wheeze, Rales, Rhonchi Neuro: Alert and responsive, No focal deficits noted Abdomen: Soft, Non-Tender Skin: No rashes noted on visualized skin Musculoskeletal: No Chest Wall Tenderness Extremities: No Clubbing, No Cyanosis, No Edema, Normal Pulses Results 10/18/17 05:02 10/18/17 05:02 Lab Results Active Medications Acetaminophen (Tylenol) 650 mg PO Q6HR PRN PRN Reason: Mild Pain/Fever Stop: 04/13/18 20:32 Last Admin: 10/17/17 20:38 Dose: 650 mg Hydrocodone Bitart/Acetaminophen (Gorin 5-325 Mg) 1 tab PO Q6HR PRN PRN Reason: Moderate Pain Stop: 04/13/18 20:32 Albuterol Sulfate (Albuterol Inhaler) 2 puff IH QID PRN PRN Reason: Shortness Of Breath Stop: 04/13/18 20:35 Albuterol/Ipratropium (Duoneb) 3 ml IH QID PRN PRN Reason: Cough/SOB Stop: 04/13/18 20:35 Last Admin: 10/18/17 07:34 Dose: 3 ml Amiodarone HCl (Cordarone) 200 mg PO DAILY PHILLY Stop: 04/13/18 23:24 Last Admin: 10/18/17 08:54 Dose: 200 mg Atorvastatin Calcium (Lipitor) 10 mg PO HS PHILLY Stop: 04/13/18 21:01 Last Admin: 10/17/17 20:38 Dose: 10 mg Bisacodyl (Dulcolax) 5 mg PO BID PRN PRN Reason: Constipation Stop: 04/13/18 20:35 Last Admin: 10/13/17 14:58 Dose: 5 mg Brimonidine Tartrate (Alphagan) 1 drop BOTH EYES TID PHILLY PRN Reason: Protocol Stop: 04/13/18 21:01 Last Admin: 10/18/17 08:55 Dose: Not Given Clopidogrel Bisulfate (Plavix) 75 mg PO DAILY PHILLY Stop: 04/14/18 09:01 Last Admin: 10/18/17 08:54 Dose: 75 mg Doxycycline Hyclate (Doxycycline) 100 mg PO DAILY PHILLY Stop: 04/14/18 09:01 Last Admin: 10/18/17 08:54 Dose: 100 mg Ferrous Sulfate (Ferrous Sulfate) 325 mg PO BIDWM PHILLY Stop: 04/13/18 21:01 Last Admin: 10/18/17 08:57 Dose: 325 mg Furosemide (Lasix) 40 mg PO BIDDIURETIC PHILLY Stop: 04/17/18 17:01 Last Admin: 10/18/17 08:54 Dose: 40 mg Heparin Sodium (Porcine) (Heparin) 5,600 unit 70 unit/kg (5600 unit) IVP Q6HR PRN PRN Reason: SEE COMMENTS Stop: 04/18/18 13:20 Heparin Sodium (Porcine) (Heparin) 2,800 unit 35 unit/kg (2800 unit) IVP Q6H PRN PRN Reason: SEE COMMENTS Stop: 04/18/18 13:20 Heparin Sodium/Dextrose (Heparin 25,000 Unit/500 Ml D5w) 25,000 unit in 500 mls @ 22.455 mls/hr IVC .[id number] PHILLY; 14 UNIT/KG/HR PRN Reason: Protocol Stop: 04/18/18 13:31 Last Admin: 10/18/17 10:07 Dose: 10.91 unit/kg/hr, 17.5 mls/hr Lactobacillus Acidophilus/Rhamnosus (Culturelle) 1 each PO DAILY PHILLY Stop: 04/14/18 09:01 Last Admin: 10/18/17 08:54 Dose: 1 each Latanoprost (Xalatan) 1 drop BOTH EYES HS [facility] Stop: 04/13/18 21:01 Last Admin: 10/17/17 20:39 Dose: Not Given Levothyroxine Sodium (Synthroid) 50 mcg PO 0630 [facility] Stop: 04/14/18 06:31 Last Admin: 10/18/17 05:51 Dose: 50 mcg Losartan Potassium (Cozaar) 50 mg PO DAILY [facility] Stop: 04/15/18 09:01 Last Admin: 10/18/17 08:55 Dose: 50 mg Magnesium Hydroxide (Milk Of Magnesia Conc) 30 ml PO HS PRN PRN Reason: Constipation Stop: 04/13/18 20:35 Last Admin: 10/13/17 17:26 Dose: 30 ml Metoprolol Tartrate (Lopressor) 50 mg PO BID [facility] Stop: 04/13/18 23:31 Last Admin: 10/18/17 08:55 Dose: 50 mg Naloxone HCl (Narcan) 0.4 mg IVP Q2MIN PRN PRN Reason: SEE COMMENTS Stop: 04/13/18 20:32 Nitroglycerin (Nitroglycerin) 0.4 mg SL Q5M PRN PRN Reason: Chest Pain Stop: 04/13/18 20:35 Ondansetron HCl (Zofran) 4 mg IVP Q8HR PRN PRN Reason: Nausea And Vomiting Stop: 04/13/18 20:32 Oxycodone HCl (Oxycontin) 20 mg PO Q12H PRN PRN Reason: Pain Last Admin: 10/17/17 08:33 Dose: 20 mg Polyethylene Glycol (Miralax) 17 gm PO BID PRN PRN Reason: Constipation Stop: 04/13/18 20:35 Last Admin: 10/13/17 14:58 Dose: 17 gm Potassium Chloride (Potassium Chloride) 10 meq PO DAILY [facility] Stop: 04/14/18 09:01 Last Admin: 10/18/17 08:54 Dose: 10 meq Pregabalin (Lyrica) 150 mg PO TID [facility] Stop: 04/13/18 21:01 Last Admin: 10/18/17 08:55 Dose: 150 mg Promethazine HCl (Phenergan) 12.5 mg IVP Q6HR PRN PRN Reason: Nausea And Vomiting Stop: 04/13/18 20:32 Senna/Docusate Sodium (Senna Plus) 2 each PO BID PHILLY PRN Reason: Protocol Stop: 04/13/18 21:01 Last Admin: 10/18/17 08:54 Dose: 2 each Sertraline HCl (Zoloft) 100 mg PO QPM [facility] Stop: 04/14/18 18:01 Last Admin: 10/17/17 17:57 Dose: Not Given Simethicone (Gas-X) 160 mg PO TID PRN PRN Reason: GI Upset Stop: 04/13/18 20:35 Tiotropium [place] (Spiriva) 18 mcg IH DAILY [facility] Stop: 04/14/18 09:01 Last Admin: 10/18/17 07:45 Dose: Not Given Trazodone HCl (Trazodone) 50 mg PO HS PRN PRN Reason: Sleep Stop: 04/13/18 20:35 Last Admin: 10/17/17 20:37 Dose: 50 mg Vitamin D (Vitamin D) 1,000 unit PO DAILY [facility] Stop: 04/14/18 09:01 Last Admin: 10/18/17 08:54 Dose: 1,000 unit Laboratory Tests 10/18/17 10/18/17 05:02 05:02 Hgb 8.9 L Creatinine 1.03 - Imaging and Cardiology Chest Xray: report reviewed Echo: report reviewed - EKG Interpretation EKG results cardiology: other (Telemetry reviewed with average HR previous 12 hours noted to be 60, paced rhythm. PVCs noted.) Consult Discharge Plan - Plan [facility]errals: [facility] [Primary Care Provider] -
[2017-10-18] MEDS: traZODone 50 MG TABLET PO PRN (20:43)
[2017-10-18] MEDS: *HR* OxyCODONE ER (12 HR) 20 MG TABLET PO PRN (20:43)
[2017-10-18] MEDS: Latanoprost 2.5 ML BOTTLE BOTH EYES SCH (20:46)
[2017-10-19 04:49] LABS: Hematocrit 30.3 % (37.5-50.1); Hemoglobin 9.3 g/dL (12.9-16.9); Mean Corpuscular HGB Conc 30.7 g/dL (31.6-35.5); Mean Corpuscular Volume 84.6 fL (83.0-100.0); Mean Platelet Volume 10.4 fL (9.4-12.4); Platelet Count 236 K/mcL (140-400); Red Blood Count 3.58 M/mcL (4.19-5.50); Red Cell Distribution Width 21.7 % (11.5-14.5)
[2017-10-19 04:58] LABS: INR 1.8; Prothrombin Time 19.6 Seconds (9.4-12.1)
[2017-10-19 05:03] LABS: BUN/Creatinine Ratio 21 (6-26); Blood Urea Nitrogen 21 mg/dL (8-23); Calcium 8.6 mg/dL (8.6-10.3); Carbon Dioxide 28 mEq/L (23-29); Chloride 103 mEq/L (98-107); Glucose 215 mg/dL (70-105); Osmolality,Calculated 291 (280-300); Potassium 3.8 mEq/L (3.5-5.1); Sodium 136 mEq/L (136-145); eGFR For African Americans > 60 (> 60); eGFR For Non-African Americans > 60 (> 60)
[2017-10-19] MEDS: Sennosides/Docusate Sodium TABLET PO SCH ×2 (08:01→20:19)
[2017-10-19] MEDS: Furosemide 40 MG TABLET PO SCH ×2 (08:01→17:50)
[2017-10-19] MEDS: Doxycycline 100 MG CAPSULE PO SCH (08:01)
[2017-10-19] MEDS: Pregabalin 75 MG CAPSULE PO SCH ×3 (08:01→20:19)
[2017-10-19] MEDS: Lactobacillus 1 EACH CAP.SPRINK PO SCH (08:01)
[2017-10-19] MEDS: *HR* HYDROcodone/Acet 5/325 mg TABLET PO PRN (08:02)
[2017-10-19] MEDS: Cholecalciferol (D-3) 1,000 UNIT TABLET PO SCH (08:02)
[2017-10-19] MEDS: *HR* Amiodarone 200 MG TABLET PO SCH (08:02)
[2017-10-19] MEDS: Ipratropium/Albuterol Neb 3 ML IH PRN (08:17)
[2017-10-19] MEDS: Tiotropium 18 MCG inhalation IH SCH (08:17)
--- NOTE | 2017-10-19 10:31 | Cardiology Progress Note ---
Date of Encounter: 10/19/17 Time of Encounter: 08:30 Assessment and Plan (1) Acute on chronic systolic CHF (congestive heart failure) Current Visit: Yes Status: Acute Per cardiology: -TTE completed this admission shows EF now reduced at 35-40%. Global left ventricular systolic dysfunction with regional variations. Atypical septal motion consistent with post-operative status. Indeterminate diastolic function. Moderately dilated and hypokinetic right ventricle. Moderate tricuspid regurgitation. Mild pulmonary hypertension. Estimated RVSP is 42 mmHg. -Last TTE 05/2017 showed EF 55-60%. -Ischemic evaluation is recommended. - We will need to hold coumadin. -Euvolemic on exam. -CUrrently net negative 3300ml. -Currenlty on heparin drip, INR 1.8 this am. Discussed and reviewed with , collar runner, states INR needs to be 1.6 for LHC. -Plan for possible LHC in am pending INR results. -Will make NPO after midnight. -R/B/A of LHC discussed with Mr. Huddleston and he agrees to proceed. -Discussed and reviewed with patient and at bedside. (2) Atrial flutter with rapid ventricular response Current Visit: Yes Status: Acute Per cardiology: -Device check showed underlying atrial flutter, HR 120's. -PPM changed to VVI and HR decreased to 70. Quarter Supervisor discussed with Dr. Callaway, patient is a good candidate for atrial antitachycardia pacing. -Discussed with Dr. Callaway, patient needs to be on anticoagulation for at least three weeks prior to starting therapy. On 09/24/17 her was subtherapeutic, INR 1.6. -We will have him follow in 2 weeks in the cardiology office to make adjustments. -Average HR previous 12 hours noted to be 60. (3) Atrial fibrillation Current Visit: No Status: Chronic Per cardiology: -H/o atrial fibrillation on coumadin. Follows with the coumadin clinic at the [place]. -Continue amiodarone and lopressor. Qualifiers: Atrial fibrillation type: paroxysmal Qualified Code(s): I48.0 - Paroxysmal atrial fibrillation (4) CAD (coronary artery disease) Current Visit: No Status: Chronic Per cardiology: -H/o CABG. LHC 10/18/15 showed 2/2 patent bypass grafts. EF 45%. Continue plavix , statin and bb. Off asa to avoid triple therapy. -Denies chest pain. Qualifiers: Coronary Disease-Associated Artery/Lesion type: [place] artery [place] vs. transplanted heart: [place] heart Associated angina: without angina Qualified Code(s): I25.10 - Atherosclerotic heart disease of [place] coronary artery without angina pectoris Discussion w patient/family: The assessment and plan as outlined above was discussed with the patient who expressed understanding and agreement. All questions were answered. Thank you for involving us in the care of your patient. Please call with any questions. Discussed and reviewed with . Subjective Principal diagnosis: atrial flutter/ afib Interval history: Patient frustrated today regarding no LHC today. Denies complaints. Objective Vital Signs, Last 4 Hours Temp Pulse Resp BP Pulse Ox 10/19/17 08:18 18 95 10/19/17 07:41 98.4 F 60 18 107/64 95 General: Conversant, No Apparent Distress HEENT: Atraumatic, Normocephaly, Mucus Membranes Moist Neck: No JVD, Normal carotid pulses Cardiac: Reg Rate and Rhythm, Normal S1 and S2, No Murmur Lungs: Normal Breath Sounds, No Wheeze, Rales, Rhonchi Neuro: Alert and responsive, No focal deficits noted Abdomen: Soft, Non-Tender Skin: No rashes noted on visualized skin Musculoskeletal: No Chest Wall Tenderness Extremities: No Clubbing, No Cyanosis, No Edema, Normal Pulses Results 10/19/17 03:56 10/19/17 03:56 Lab Results Active Medications Acetaminophen (Tylenol) 650 mg PO Q6HR PRN PRN Reason: Mild Pain/Fever Stop: 04/13/18 20:32 Last Admin: 10/17/17 20:38 Dose: 650 mg Hydrocodone Bitart/Acetaminophen (Imogene 5-325 Mg) 1 tab PO Q6HR PRN PRN Reason: Moderate Pain Stop: 04/13/18 20:32 Last Admin: 10/19/17 08:02 Dose: 1 tab Albuterol Sulfate (Albuterol Inhaler) 2 puff IH QID PRN PRN Reason: Shortness Of Breath Stop: 04/13/18 20:35 Albuterol/Ipratropium (Duoneb) 3 ml IH QID PRN PRN Reason: Cough/SOB Stop: 04/13/18 20:35 Last Admin: 10/19/17 08:17 Dose: 3 ml Amiodarone HCl (Cordarone) 200 mg PO DAILY [facility] Stop: 04/13/18 23:24 Last Admin: 10/19/17 08:02 Dose: 200 mg Atorvastatin Calcium (Lipitor) 10 mg PO HS [facility] Stop: 04/13/18 21:01 Last Admin: 10/18/17 20:43 Dose: 10 mg Bisacodyl (Dulcolax) 5 mg PO BID PRN PRN Reason: Constipation Stop: 04/13/18 20:35 Last Admin: 10/13/17 14:58 Dose: 5 mg Brimonidine Tartrate (Alphagan) 1 drop BOTH EYES TID PHILLY PRN Reason: Protocol Stop: 04/13/18 21:01 Last Admin: 10/19/17 08:02 Dose: Not Given Clopidogrel Bisulfate (Plavix) 75 mg PO DAILY [facility] Stop: 04/14/18 09:01 Last Admin: 10/19/17 08:02 Dose: 75 mg Doxycycline Hyclate (Doxycycline) 100 mg PO DAILY [facility] Stop: 04/14/18 09:01 Last Admin: 10/19/17 08:01 Dose: 100 mg Ferrous Sulfate (Ferrous Sulfate) 325 mg PO BIDWM PHILLY Stop: 04/13/18 21:01 Last Admin: 10/19/17 08:02 Dose: 325 mg Furosemide (Lasix) 40 mg PO BIDDIURETIC [facility] Stop: 04/17/18 17:01 Last Admin: 10/19/17 08:01 Dose: 40 mg Heparin Sodium (Porcine) (Heparin) 5,600 unit 70 unit/kg (5600 unit) IVP Q6HR PRN PRN Reason: SEE COMMENTS Stop: 04/18/18 13:20 Heparin Sodium (Porcine) (Heparin) 2,800 unit 35 unit/kg (2800 unit) IVP Q6H PRN PRN Reason: SEE COMMENTS Stop: 04/18/18 13:20 Heparin Sodium/Dextrose (Heparin 25,000 Unit/500 Ml D5w) 25,000 unit in 500 mls @ 22.455 mls/hr IVC .[id number] PHILLY; 14 UNIT/KG/HR PRN Reason: Protocol Stop: 04/18/18 13:31 Last Titration: 10/18/17 19:54 Dose: 10.91 unit/kg/hr, 17.5 mls/hr Lactobacillus Acidophilus/Rhamnosus (Culturelle) 1 each PO DAILY [facility] Stop: 04/14/18 09:01 Last Admin: 10/19/17 08:01 Dose: 1 each Latanoprost (Xalatan) 1 drop BOTH EYES HS [facility] Stop: 04/13/18 21:01 Last Admin: 10/18/17 20:46 Dose: Not Given Levothyroxine Sodium (Synthroid) 50 mcg PO 0630 [facility] Stop: 04/14/18 06:31 Last Admin: 10/19/17 05:18 Dose: Not Given Losartan Potassium (Cozaar) 50 mg PO DAILY [facility] Stop: 04/15/18 09:01 Last Admin: 10/19/17 08:01 Dose: 50 mg Magnesium Hydroxide (Milk Of Magnesia Conc) 30 ml PO HS PRN PRN Reason: Constipation Stop: 04/13/18 20:35 Last Admin: 10/13/17 17:26 Dose: 30 ml Metoprolol Tartrate (Lopressor) 50 mg PO BID [facility] Stop: 04/13/18 23:31 Last Admin: 10/19/17 08:01 Dose: 50 mg Naloxone HCl (Narcan) 0.4 mg IVP Q2MIN PRN PRN Reason: SEE COMMENTS Stop: 04/13/18 20:32 Nitroglycerin (Nitroglycerin) 0.4 mg SL Q5M PRN PRN Reason: Chest Pain Stop: 04/13/18 20:35 Ondansetron HCl (Zofran) 4 mg IVP Q8HR PRN PRN Reason: Nausea And Vomiting Stop: 04/13/18 20:32 Oxycodone HCl (Oxycontin) 20 mg PO Q12H PRN PRN Reason: Pain Last Admin: 10/18/17 20:43 Dose: 20 mg Polyethylene Glycol (Miralax) 17 gm PO BID PRN PRN Reason: Constipation Stop: 04/13/18 20:35 Last Admin: 10/13/17 14:58 Dose: 17 gm Potassium Chloride (Potassium Chloride) 10 meq PO DAILY [facility] Stop: 04/14/18 09:01 Last Admin: 10/19/17 08:02 Dose: 10 meq Pregabalin (Lyrica) 150 mg PO TID [facility] Stop: 04/13/18 21:01 Last Admin: 10/19/17 08:01 Dose: 150 mg Promethazine HCl (Phenergan) 12.5 mg IVP Q6HR PRN PRN Reason: Nausea And Vomiting Stop: 04/13/18 20:32 Senna/Docusate Sodium (Senna Plus) 2 each PO BID [facility] PRN Reason: Protocol Stop: 04/13/18 21:01 Last Admin: 10/19/17 08:01 Dose: 2 each Sertraline HCl (Zoloft) 100 mg PO QPM [facility] Stop: 04/14/18 18:01 Last Admin: 10/18/17 16:24 Dose: Not Given Simethicone (Gas-X) 160 mg PO TID PRN PRN Reason: GI Upset Stop: 04/13/18 20:35 Tiotropium [place] (Spiriva) 18 mcg IH DAILY [facility] Stop: 04/14/18 09:01 Last Admin: 10/19/17 08:17 Dose: Not Given Trazodone HCl (Trazodone) 50 mg PO HS PRN PRN Reason: Sleep Stop: 04/13/18 20:35 Last Admin: 10/18/17 20:43 Dose: 50 mg Vitamin D (Vitamin D) 1,000 unit PO DAILY [facility] Stop: 04/14/18 09:01 Last Admin: 10/19/17 08:02 Dose: 1,000 unit Laboratory Tests 10/19/17 10/19/17 10/19/17 03:56 03:56 03:56 Hgb 9.3 L INR 1.8 Creatinine 1.01 - Imaging and Cardiology Chest Xray: report reviewed Echo: report reviewed Cardiac cath: pending - EKG Interpretation EKG results cardiology: other (Telemetry reviewed with average HR previous 12 hours noted to be 60, paced rhythm.) Consult Discharge Plan - Plan [facility]errals: [facility] [Primary Care Provider] -
--- NOTE | 2017-10-19 13:45 | Internal Med Progress Note ---
Date of Encounter: 10/19/17 Time of Encounter: 08:00 - Assessment and plan (1) Atrial flutter with rapid ventricular response Current Visit: Yes Status: Acute Assessment and plan: Pt denies chest pain and is waiting on [facility]. INR 1.8, heparin gtt started. [facility] when INR is 1.6 EF currently 35-40% with global LV systolic dysfunction and regional variations. Device leads is visualized in the right atrium and right ventricle. 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 TSH is elevated. Free T4 1.12 WNL, Free T3 2.13, mildly decreased. He will need to follow with primary care for further evaluation when he is no longer acutely ill. (2) Diastolic CHF, acute on chronic Current Visit: Yes Status: Acute Assessment and plan: Heparin gtt started by cardiology in preparation for [facility]. Lungs are clear and diminished, patient is requiring supplemental oxygen at 2L n /c. Patient has +1 non-piitting bilateral peripheral edema and denies cough. Continue telemetry. Continue oxygen to maintain sats greater than 92%. Continue IV Lasix 40 mg twice daily Cardiac diet, daily weights, I&O. Low-sodium diet [facility] when INR 1.6 (3) Anemia Current Visit: Yes Status: Acute Assessment and plan: Hemoglobin stable. Iron 12, % Sat 4. Venofer 400mg IV x 1 10/14. Pt will need to follow up with PCP and oncology after discharge. D/w oncology [employer]PECTOR , appointment should be scheduled prior to discharge. Continue to monitor. Qualifiers: Anemia type: other cause Other causes of anemia: other cause, not classified Qualified Code(s): D64.89 - Other specified anemias (4) CAD in [place] artery Current Visit: Yes Status: Acute Assessment and plan: Chronic. Continue amiodarone, Lipitor, Plavix and warfarin, beta cyn. Heparin gtt currently, monitor labs. Denies chest pain. Cardiology following. [facility] pending Continue telemetry (5) COPD (chronic obstructive pulmonary disease) Current Visit: Yes Status: Chronic Assessment and plan: Chronic. Acute exacerbation on admission, resolved. Continue albuterol inhaler, DuoNeb , Spiriva. Lungs diminished in all [place], no wheezing, rales, ronchi. Pt is in no distress and is on 2L 02/NC 02 sats with VS Qualifiers: COPD type: chronic bronchitis Chronic bronchitis type: simple Qualified Code(s): J41.0 - Simple chronic bronchitis (6) Hx of CABG Current Visit: No Status: Chronic Assessment and plan: Per hx. Continue home medications Continue telemetry Cardiology following, plan as above. (7) DVT prophylaxis Current Visit: No Status: Acute Assessment and plan: Pt on Heparin gtt. Continue to encourage ambulation. - Time Spent With Patient less than 15 minutes - Subjective Interval history: Patient was seen and assessed at bedside at 080 AM. He is alert and oriented. Pt denies chest pain, palpitations, SOB,headache or blurred vision. He denies any dizziness, abdominal pain, nausea, vomiting, or diarrhea. Pt states that he has been up and ambulating with walker. Pt is restless and tired of being in the hospital. He was told that C would be today, however, INR needs to be 1.6 and has been postponed. - Constitutional Vitals: Temp Pulse Resp BP Pulse Ox 98.2 F 62 16 93/54 94 10/19/17 11:50 10/19/17 11:50 10/19/17 11:50 10/19/17 11:50 10/19/17 11:50 General appearance: Present: cooperative, A&O X 3, pleasant, no acute distress, answers questions appropriately - Head Head exam: Present: atraumatic, normal inspection, normocephalic - Eye Eye exam: Present: normal appearance, conjuntiva pink, sclera anicteric - Neck Neck exam general surgery: Present: supple, trachea midline. Absent: lymphadenopathy - Respiratory Respiratory exam: Present: CTAB. Absent: accessory muscle use, rales, rhonchi, wheezes - Cardiovascular Cardiovascular exam: Present: RRR, +S1, +S2. Absent: diastolic murmur, gallop, rubs, systolic murmur - GI/Abdominal GI/Abdominal exam: Present: normal bowel sounds, soft. Absent: distended, hepatomegaly, tenderness - Extremities Exam Extremities exam: Present: normal capillary refill, normal inspection, warm, radial pulses palpable and symmetrical. Absent: calf tenderness, cyanotic, pedal edema - Neurological Exam Neurological exam: Present: alert, oriented X3, no focal deficits. Absent: facial droop, speech deficit - Skin Skin exam: Present: dry, intact, normal color, warm. Absent: rash Internal Medicine: Result - Labs CBC & Chem 7: 10/19/17 03:56 10/19/17 03:56 Labs: Short CBC 10/19/17 Range/Units 03:56 WBC 7.0 (4.3-11.1) K/mcL Hgb 9.3 L (12.9-16.9) g/dL Hct 30.3 L (37.5-50.1) % Plt Count 236 (140-400) K/mcL BMP 10/19/17 03:56 Sodium 136 Potassium 3.8 Chloride 103 Carbon Dioxide 28 BUN 21 Creatinine 1.01 Glucose 215 H Calcium 8.6 - ABG Interpretation ABG results: PT/INR, D-dimer PT 19.6 Seconds (9.4-12.1) H 10/19/17 03:56 Consult Discharge Plan - Plan [facility]errals: [facility] [Primary Care Provider] -
[2017-10-19] MEDS: Heparin 25,000 UNIT/500 ML D5W 25,000 UNIT/500 ML BAG IVC SCH (16:07)
[2017-10-19] MEDS: Latanoprost 2.5 ML BOTTLE BOTH EYES SCH (20:20)
[2017-10-19] MEDS: traZODone 50 MG TABLET PO PRN (20:20)
[2017-10-20 04:18] LABS: Hemoglobin 9.5 g/dL (12.9-16.9); Mean Corpuscular HGB Conc 30.6 g/dL (31.6-35.5); Mean Corpuscular Volume 84.7 fL (83.0-100.0); Mean Platelet Volume 10.7 fL (9.4-12.4); Platelet Count 227 K/mcL (140-400); Red Blood Count 3.66 M/mcL (4.19-5.50); Red Cell Distribution Width 22.5 % (11.5-14.5)
[2017-10-20] MEDS: *HR* HYDROcodone/Acet 5/325 mg TABLET PO PRN (04:18)
[2017-10-20 04:23] LABS: INR 1.5; Prothrombin Time 16.6 Seconds (9.4-12.1)
[2017-10-20 04:43] LABS: BUN/Creatinine Ratio 18 (6-26); Blood Urea Nitrogen 18 mg/dL (8-23); Calcium 8.7 mg/dL (8.6-10.3); Carbon Dioxide 29 mEq/L (23-29); Chloride 104 mEq/L (98-107); Glucose 219 mg/dL (70-105); Osmolality,Calculated 295 (280-300); Potassium 3.8 mEq/L (3.5-5.1); Sodium 138 mEq/L (136-145); eGFR For African Americans > 60 (> 60); eGFR For Non-African Americans > 60 (> 60)
[2017-10-20] MEDS: Lactobacillus 1 EACH CAP.SPRINK PO SCH (08:04)
[2017-10-20] MEDS: Furosemide 40 MG TABLET PO SCH ×2 (08:04→15:57)
[2017-10-20] MEDS: Sennosides/Docusate Sodium TABLET PO SCH ×2 (08:04→20:30)
[2017-10-20] MEDS: Pregabalin 75 MG CAPSULE PO SCH ×3 (08:04→20:29)
[2017-10-20] MEDS: Doxycycline 100 MG CAPSULE PO SCH (08:04)
[2017-10-20] MEDS: *HR* Amiodarone 200 MG TABLET PO SCH (08:05)
[2017-10-20] MEDS: Cholecalciferol (D-3) 1,000 UNIT TABLET PO SCH (08:05)
[2017-10-20] MEDS: Ipratropium/Albuterol Neb 3 ML IH PRN (08:09)
[2017-10-20] MEDS: Tiotropium 18 MCG inhalation IH SCH (08:09)
[2017-10-20] MEDS: *HR* OxyCODONE Immed Rel 5 MG TABLET PO PRN ×2 (08:35→20:31)
--- NOTE | 2017-10-20 10:05 | Event Note ---
Date of Encounter: 10/20/17 Time of Encounter: 10:04 - Cardiology Event Note PLan for LHC. INR 1.5 today. Risks versus benefits of LHC explained to patient. Patient states understanding and agreeable to proceed. Further recommendations pending LHC.
[2017-10-20] MEDS ORDERED: Nitroglycerin 1,000 MCG/10 ML VIAL IV ONE (10:53)
[2017-10-20] MEDS ORDERED: Heparin 1,000 UNITS/500 mL 500 ML ONE (10:53)
[2017-10-20] MEDS ORDERED: 0.9 % Sodium Chloride 1,000 ML ONE ×2 (10:53→12:28)
[2017-10-20] MEDS ORDERED: *HR* Heparin 10,000 UNIT/10 ML VIAL ONE (10:53)
[2017-10-20] MEDS ORDERED: ISOVUE-370 200 ML INFUS..BTL IV ONE (12:11)
--- NOTE | 2017-10-20 12:19 | Pre-Sedation Evaluation ---
Pre-sedation evaluation - Pre-sedation checklist Date of procedure: 10/20/17 Procedure: Heart cath Recent Vitals: Last Vital Signs Temp 97.6 F 10/20/17 10:55 Pulse 61 10/20/17 10:55 Resp 16 10/20/17 10:55 BP 105/61 10/20/17 10:55 Pulse Ox 90 10/20/17 10:55 H&P (including ROS) documented in medical record: Yes Previous reaction to sedatives/anesthetics: No Dietary Status: NPO after Midnight Airway Assessment: Patient can open mouth completely, TMJ function normal, Micrognathia (under-bite, receding chin) absent, Neck with adequate range of motion Dentition: No loose teeth or bridges Possible difficult airway: No ASA Classification *see protocol: CLASS II-Mild systemic disease Plan of Care: Pt appropriate candidate for procedure/moderate/conscious sedation , Risks/benefits of procedure/sedation discussed w/ patient/family
[2017-10-20] MEDS ORDERED: *HR* Midazolam HCl 2 MG/2 ML VIAL ONE (12:31)
[2017-10-20] MEDS ORDERED: *HR* FentaNYL (PF) 100 MCG/2 ML VIAL ONE (12:31)
--- NOTE | 2017-10-20 13:27 | Invasive Diagnostic Lab Proc ---
Name: Venu Huddleston Date of Study: 10/20/2017 Date: 1945 Ht: 66.9in Medical Record#: [id number] Age: 72 Wt: 178.57lb Gender: Male BSA: 1.93 Order #: [id number] BMI: 28.03 Physicians Procedure Physician: Vera Callaway MD, [facility] Referring MD: Referring MD: Staff Name Position Time In Maria Luisa Castañeda RN [employer] Truck Driver 12:34 PM Kenyetta Mcgovern RT (R) Scrub 12:34 PM Justina Au RT (R) Monitor 12:34 PM Indications Indication Cardiomyopathy Procedures Performed Procedure L HRT ART/GRFT ANGIO Pre-Procedure Checklist Informed consent is complete signed and on chart. H&P is on chart. ID band is on and ID verified with patient. Patient NPO for procedure The procedure was described for the patient and questions were answered. ECG is on chart. Plan of Care Patient will tolerate the procedure without complications. Adequate level of comfort will be maintained. Hemodynamics will remain stable Patient will recover from procedure without complications. Respiratory function will be maintained. Cardiac rhythm will remain stable. Patient temperature will be maintained. Patient and/or family have verbalized understanding of the procedure. Patient Education Chief Complaint/Reason for Test: Cardiac Cath Developmental Category: Geriatric (65+ years) Developmentally Appropriate for Age: Yes Learning Barriers: None Education Needs: Procedure Education Method: Verbal Information Taught: Cardiac Cath Educational Evaluation: Able to repeat information Intravenous Access Time IV Size Location DC'd Fluid/Drip Rate Units RN 20g 1 /" Patent On Arrival Rt Antecubital Allergies morphine No Known Allergies sulfamethoxazole trimethoprim azithromycin ceftriaxone Vital Signs Time BP (mmHg) HR (bpm) O2 Sat. RR (bpm) LOC 121 / 64 60 97 % 16 12:36 PM / % 5 = Fully awake and oriented or at pre-proc level 12:36 PM / % 3 = Answers simple questions/follows commands 12:51 PM / % 4 = Oriented but drowsy 12:34 PM 137 / 71 59 97 % 16 12:39 PM 123 / 74 60 98 % 16 12:44 PM 118 / 74 60 92 % 11 12:49 PM 111 / 69 60 99 % 7 12:54 PM 108 / 61 59 100 % 11 12:59 PM 105 / 59 60 100 % 22 01:04 PM 101 / 58 66 % 10 Procedural Medications Time Medication Dose Units Method Given By 12:35 PM Oxygen 2 L/min nasal cannula Maria Luisa Castañeda RN 12:35 PM Versed 2 mg Intravenous Maria Luisa Castañeda RN 12:35 PM Fentanyl 50 mcg Intravenous Maria Luisa Castañeda RN 12:41 PM Benadryl 25 mg Intravenous Maria Luisa Castañeda RN 12:43 PM Lidocaine 2% 19 ml Subcutaneous Vera Callaway MD, [facility] 12:45 PM Oxygen 4 L/min nasal cannula Maria Luisa Castañeda RN 12:46 PM Oxygen 10 L/min Oxy Mask Maria Luisa Castañeda RN 12:48 PM Oxygen 15 L/min Oxy Mask Maria Luisa Castañeda RN ASA Classification: CLASS II- Mild systemic disease (i.e. well-controlled diabetes, hypertension, asthma, cigarette smoking) Ike Score Preprocedure Postprocedure Activity 2- Moves 4 extremities sustained head lift Activity 2- Moves 4 extremities sustained head lift Circulation 2- SBP +/= 20 points of pre-anesthetic level Circulation 2- SBP +/= 20 points of pre-anesthetic level Consciousness 2- Awake and alert oriented x 3 Consciousness 2- Awake and alert oriented x 3 O2 Saturation 2- Able to maintain O2 satruation of 92% on room air O2 Saturation 2- Able to maintain O2 satruation of 92% on room air Respiratory 2- Able to deep breathe and cough well Respiratory 2- Able to deep breathe and cough well Total Score 10 Total Score 10 Contrast Agent: Isovue Diagnostic Contrast: 85 ml Total Contrast: 85 ml Fluoro Dose: 247 mGy Procedure Log Time Note Enter By 12:20 PM Vitals capture started with the following parameters, Patient=Adult, Interval=5 min, Initial Foxnupkn=979 mmHg, Deflation Rate=5 mmHg, Cuff placed on Right Arm 12:33 PM Vitals capture started with the following parameters, Patient=Adult, Interval=5 min, Initial Numvryad=442 mmHg, Deflation Rate=5 mmHg, Cuff placed on Right Arm 12:33 PM CathStat 12:34 PM Recorded ECG: HR=59 Condition=Condition 1 12:34 PM HR=59 bpm, XIHY=559/71 mmhg, SpO2=97.0 %, Resp=16 B/min, Comment=Paced 12:34 PM 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 PM Justina Au RT (R) Position: Monitor [facility]: 12[facility] PM Patient charges- Angio tray pack, Navilyst 3mm J, Pulse Oximetry and ACIST tubing and transducer [facility] 12:34 PM Case Delayed No jcallan 12:35 PM Physician arrived 12:35 [facility] 12:35 PM Meet and greet completed [facility] 12:35 PM Sign in performed according to hospital policy. critical [facility] hospital 12:35 PM Procedure start 12:35 [facility] 12:35 PM Hair removed from procedure site in procedure lab using clippers. Bilateral groin prepped with Chloraprep by Justina Au RT (R), then patient was draped. Skin intact. critical [facility] 12:35 PM Time: 12:35 Oxygen on at 2 L/min per nasal cannula by Maria Luisa Castañeda RN [facility] 12:35 PM Time: 12:35 Versed 2 mg Intravenous Given by Maria Luisa Castañeda RN [facility] 12:36 PM Time: 12:35 Fentanyl 50 mcg Intravenous Given by Maria Luisa Castañeda RN [facility] 12:36 PM ASA Class CLASS II- Mild systemic disease (i.e. well-controlled diabetes, hypertension, asthma, cigarette smoking) [facility] 12:36 PM Time: 12:36 Patient comfortable and pain free: Yes [facility] 12:36 PM Time: 12:36LOC: 5 = Fully awake and oriented or at pre-proc level [facility] 12:38 PM Clinical Presentation: [facility] 12:[facility] PM HR=60 bpm, LJJH=842/74 mmhg, SpO2=98.0 %, Resp=16 B/min, Comment=Paced 12:40 PM Time out performed according to hospital policy [facility] 12:41 PM Time: 12:41 Benadryl 25 mg Intravenous Given by Maria Luisa Castañeda RN [facility] 12:43 PM Time: 12:43 19 ml Lidocaine 2% to right groin Subcutaneous Given by Vera Callaway MD, [facility] 12:44 PM HR=60 bpm, KFSF=317/74 mmhg, SpO2=92.0 %, Resp=11 B/min, Comment=Paced 12:45 PM Time: 12:45 Oxygen on at 4 L/min per nasal cannula by Maria Luisa Castañeda RN [facility] 12:46 PM Time: 12:46 Oxygen on at 10 L/min per Oxy Mask by Maria Luisa Castañeda RN [facility] 12:47 PM Access obtained by percutaneous puncture. 5Fr 10cm Terumo Durant sheath placed in right Femoral artery. [id number] dspell 12:47 PM 5Fr FL 4 catheter inserted over the wire [facility] dspell 12:47 PM 0.035 145cm Navilyst 3mmJ wire [id number] dspell 12:47 PM LCA angiography performed in multiple views. dspell 12:48 PM Recorded Pressure: Ao, HR=60, Condition=Condition 1 (Aorta) Ao 102/63/80 12:48 PM Time: 12:48 Oxygen on at 15 L/min per Oxy Mask by Maria Luisa Castañeda RN [facility] 12:49 PM HR=60 bpm, RPSU=730/69 mmhg, SpO2=99.0 %, Resp=7 B/min, Comment=Paced 12:49 PM 0.035 260cm Navilyst 3mmJ wire [id number] dspell 12:49 PM Catheter removed dspell 12:49 PM 5Fr FR 4 catheter inserted over the wire [facility] dspell 12:50 PM RCA angiography performed in multiple views. dspell 12:50 PM Recorded Pressure: Ao, HR=60, Condition=Condition 1 (Aorta) Ao 92/59/74 12:51 PM SVG to the 1st OM angio performed in multiple views. dspell 12:51 PM Time: 12:36LOC: 3 = Answers simple questions/follows commands dspell 12:51 PM Time: 12:36 Patient comfortable and pain free: Yes dspell 12:52 PM Catheter removed dspell 12:52 PM 5Fr IM catheter inserted over the wire [id number] dspell 12:53 PM Left AUBRIE to the LAD angio performed in multiple views. dspell 12:53 PM Catheter removed dspell 12:54 PM HR=59 bpm, IPLY=267/61 mmhg, DyD8=310.0 %, Resp=11 B/min, Comment=Paced 12:54 PM 5Fr Pigtail catheter inserted over the wire [facility] dspell 12:54 PM Catheter selectively placed in left ventricle dspellman 12:54 PM Bolus angiogram of left Ventricle complete: 8 ml/sec for a total of 24 mls dspellman 12:55 PM Pressure channel 1 zeroed. 12:55 PM Recorded Pressure: LV, HR=60, Condition=Condition 1 (Left Ventricle) LV 87/19/18 12:56 PM Recorded Pressure: LV, Ao, HR=60, Condition=Condition 1 (Left Ventricle) LV 86/26/29, (Aorta) Ao 86/48/67 12:56 PM Catheter removed dspell 12:56 PM reviewing films dspell 12:57 PM Bolus angiogram of right Femoral complete: 4 ml/sec for a total of 7 mls dspellman 12:59 PM HR=60 bpm, SGUT=348/59 mmhg, QhW2=603.0 %, Resp=22 B/min 01:00 PM Procedure completed at 13:00 dspellman 01:00 PM Sign out completed: Radiation Dose 247.47 mGy Fluoro Time: 3.4 Isovue 370 - 200ml contrast ml given by Vera Callaway MD, [facility]. Complications: NoneCardiac Rehab Consult needed: NoConfirmed administered medications: Yes dspellman 01:00 PM Isovue 370 - 200ml,1 Bottle(s) used. dspell 01:00 PM Arterial sheath pulled, Mynx closure device used and was Successful S/N. dspell 01:00 PM Estimated Blood Loss: minimal dspellman 01:01 PM Post ECG Atrial Fibrillation dspellman 01:01 PM Post Blood Pressure 105/59 dspellman 01:04 PM HR=66 bpm, OULJ=653/58 mmhg, Resp=10 B/min, Comment=Paced 01:04 PM Coronary Dominance: Left dspellman 01:04 PM Did you address JOYA flow and Dominance? Yes dspellman 01:04 PM Site status No bleeding/hematoma - Rt Groin as reported by Sites, Kenyetta RT (R) at 13:04 dspellman 01:05 PM Opsite applied dspellman 01:05 PM Family placed in consult room. [email or web address] 01:05 PM Fluoro Time: 3.4 dspell 01:05 PM Isovue 370 - 200ml contrast 85 ml given by Vera Callaway MD, [facility]. [email or web address] 01:05 PM Radiation Dose 247.47 mGy [email or web address] 01:07 PM Time: 12:51 Patient comfortable and pain free: Yes [email or web address] 01:07 PM Time: 12:51LOC: 4 = Oriented but drowsy [email or web address] 01:09 PM Report given to Nayana FENG Pt taken to Room #23. 13:09 [email or web address] 01:17 PM Patient out of room: 13:17 [email or web address] Complications Complication None Hemodynamics Pressures Site Systolic/A Wave Diastolic/V Wave Mean AO 102 63 80 AO 92 59 74 LV 87 19 18 LV 86 26 29 AO 86 48 67 Post Procedure Information Blood Pressure: 105/59 mmHg Rhythm: Atrial Fibrillation Post procedural instructions were given Closure Device Time Device Success/Fail 10/20/2017 2:10:00 PM Mechanical Compression Successful Site Checks Time Location Status Staff Sheath In? Note 01:04 PM Rt Groin No bleeding/hematoma Sites, Kenyetta RT (R) Pulses Updated by Jerald Roberts RN on 10/20/2017 1:18:53 PM electronically signed on 10/20/2017 1:19:33 PM with status of Final
[2017-10-20] MEDS ORDERED: Naloxone 0.4 MG/ML INJ ONE (13:44)
--- NOTE | 2017-10-20 13:44 | Event Note ---
Date of Encounter: 10/20/17 Time of Encounter: 13:42 - Cardiology Event Note LHC performed, per discussion with Dr.Jennifer Callaway, no intervention needed. For atrial flutter, will obtain ECG now, no atrial flutter appreciated. Patient follows with [place] coumad[facility]. Resume coumadin today. Recommend restarting heparin drip 6 hours after sheath pull. Recommend bridging of coumadin until INR at goal (2-3). Can consider bridging with lovenox, if patient and able to perform lovenox injections. Regarding cardiomyopathy, on ARB. Lopressor changed to toprol starting in am. CHF educated reinforced with patient and family. Cardiology will sign off and will follow in outpatient setting. Follow up set. Discussed and reviewed with patient and at bedside.
--- NOTE | 2017-10-20 15:24 | Internal Med Progress Note ---
Date of Encounter: 10/20/17 Time of Encounter: 15:19 - Assessment and plan (1) Acute on chronic systolic CHF (congestive heart failure) Current Visit: Yes Status: Acute Assessment and plan: TTE completed this admission shows usually reduced of EF 35-40%., global left ventricular systolic dysfunction with regional variations. Atypical septal motion consistent with post-operative status. Indeterminate diastolic function. Moderately dilated and hypokinetic right ventricle. Moderate tricuspid regurgitation. Mild pulmonary hypertension. Evaluated by cardiology who recommended [facility] to evaluate for ischemic cause on 10/20/2017 which did not show obstructive CAD; no intervention required. Appears euvolemic. Continue ARB, BB. Follow-up with cardiology outpatient. (2) Atrial fibrillation Current Visit: No Status: Chronic Assessment and plan: device check showed underlying atrial flutter, HR 120's. PPM settings changed and HR decreased to 70. Plan for atrial antitachycardia pacing once on anticoagulation for at least three weeks prior to starting therapy. Follow-up with cardiology outpatient. Resume Coumadin 10/20 with heparin bridge. Consider Lovenox if patient able to afford and patient/ able to administer injections. Qualifiers: Atrial fibrillation type: paroxysmal Qualified Code(s): I48.0 - Paroxysmal atrial fibrillation (3) Anemia Current Visit: Yes Status: Acute Assessment and plan: Hemoglobin stable. Iron 12, % Sat 4. Venofer 400mg IV x 1 10/14. Pt will need to follow up with PCP and oncology after discharge. D/w oncology GIS ADMINISTRATOR , appointment should be scheduled prior to discharge. Continue to monitor. Qualifiers: Anemia type: other cause Other causes of anemia: other cause, not classified Qualified Code(s): D64.89 - Other specified anemias (4) COPD (chronic obstructive pulmonary disease) Current Visit: Yes Status: Chronic Assessment and plan: Chronic. Acute exacerbation on admission, resolved. Continue albuterol inhaler, DuoNeb , Spiriva. Lungs diminished in all post [place], no wheezing, rales, ronchi. Pt is in no distress and is on 2L / 02 sats with VS Qualifiers: COPD type: chronic bronchitis Chronic bronchitis type: simple Qualified Code(s): J41.0 - Simple chronic bronchitis (5) Hx of CABG Current Visit: No Status: Chronic Assessment and plan: Per hx. Continue home medications Continue telemetry Cardiology following, plan as above. (6) DVT prophylaxis Current Visit: No Status: Acute Assessment and plan: heparin gtt - Subjective Interval history: Seen and examined at bedside. Patient is new to me. Information obtained from chart review and patient report. Still feels short of breath, worse with exertion. No chest pain. Says he feels a little better than yesterday. Still requiring increased O2 from home need. Has a productive cough at times. - Constitutional Vitals: Temp Pulse Resp BP Pulse Ox 97.6 F 61 16 105/61 90 10/20/17 10:55 10/20/17 10:55 10/20/17 10:55 10/20/17 10:55 10/20/17 10:55 General appearance: Present: cooperative, A&O X 3, pleasant, no acute distress, answers questions appropriately - Head Head exam: Present: atraumatic, normocephalic - Eye Eye exam: Present: PERRL, conjuntiva pink, sclera anicteric Pupils: Present: PERRL - Neck Neck exam general surgery: Present: supple, trachea midline. Absent: lymphadenopathy - Respiratory Respiratory exam: Present: CTAB, rhonchi, wheezes. Absent: accessory muscle use , rales - Cardiovascular Cardiovascular exam: Present: RRR, +S1, +S2. Absent: diastolic murmur, gallop, rubs, systolic murmur - GI/Abdominal GI/Abdominal exam: Present: normal bowel sounds, soft, no peritoneal signs. Absent: distended, tenderness - Extremities Exam Extremities exam: Present: warm, radial pulses palpable and symmetrical. Absent : calf tenderness, cyanotic, pedal edema - Neurological Exam Neurological exam: Present: CN II-XII intact, oriented X3, no focal deficits. Absent: pronater drift, facial droop, speech deficit - Skin Skin exam: Present: dry, intact Internal Medicine: Result - Labs CBC & Chem 7: 10/20/17 03:47 10/20/17 03:47 Labs: Short CBC 10/20/17 Range/Units 03:47 WBC 6.0 (4.3-11.1) K/mcL Hgb 9.5 L (12.9-16.9) g/dL Hct 31.0 L (37.5-50.1) % Plt Count 227 (140-400) K/mcL BMP 10/20/17 03:47 Sodium 138 Potassium 3.8 Chloride 104 Carbon Dioxide 29 BUN 18 Creatinine 0.99 Glucose 219 H Calcium 8.7 - ABG Interpretation ABG results: PT/INR, D-dimer PT 16.6 Seconds (9.4-12.1) H 10/20/17 03:47 Consult Discharge Plan - Plan [facility]errals: [facility]Primary Care Provider[facility] -
--- NOTE | 2017-10-20 15:37 | Invasive Diagnostic Lab Proc ---
Name: Venu Huddleston Date of Study: 10/20/2017 Date: 1945 Ht: 66.9in Medical Record#: [id number] Age: 72 Wt: 178.57lb Gender: Male BSA: 1.93 Order #: [id number] BMI: 28.03 Physicians Procedure Physician: Vera Callaway MD, [facility] Referring MD: Referring MD: Staff Name Position Time In Maria Luisa Castañeda RN Technology Assistant 12:34 PM Kenyetta Mcgovern RT (R) Scrub 12:34 PM Justina Au RT (R) Monitor 12:34 PM Indications Indication Cardiomyopathy Procedures Performed Procedure L HRT ART/GRFT ANGIO Pre-Procedure Checklist Informed consent is complete signed and on chart. H&P is on chart. ID band is on and ID verified with patient. Patient NPO for procedure The procedure was described for the patient and questions were answered. ECG is on chart. Plan of Care Patient will tolerate the procedure without complications. Adequate level of comfort will be maintained. Hemodynamics will remain stable Patient will recover from procedure without complications. Respiratory function will be maintained. Cardiac rhythm will remain stable. Patient temperature will be maintained. Patient and/or family have verbalized understanding of the procedure. Patient Education Chief Complaint/Reason for Test: Cardiac Cath Developmental Category: Geriatric (65+ years) Developmentally Appropriate for Age: Yes Learning Barriers: None Education Needs: Procedure Education Method: Verbal Information Taught: Cardiac Cath Educational Evaluation: Able to repeat information Intravenous Access Time IV Size Location DC'd Fluid/Drip Rate Units RN 20g 1 /" Patent On Arrival Rt Antecubital Allergies morphine No Known Allergies sulfamethoxazole trimethoprim azithromycin ceftriaxone Vital Signs Time BP (mmHg) HR (bpm) O2 Sat. RR (bpm) LOC 121 / 64 60 97 % 16 12:36 PM / % 5 = Fully awake and oriented or at pre-proc level 12:36 PM / % 3 = Answers simple questions/follows commands 12:51 PM / % 4 = Oriented but drowsy 12:34 PM 137 / 71 59 97 % 16 12:39 PM 123 / 74 60 98 % 16 12:44 PM 118 / 74 60 92 % 11 12:49 PM 111 / 69 60 99 % 7 12:54 PM 108 / 61 59 100 % 11 12:59 PM 105 / 59 60 100 % 22 01:04 PM 101 / 58 66 % 10 Procedural Medications Time Medication Dose Units Method Given By 12:35 PM Oxygen 2 L/min nasal cannula Maria Luisa Castañeda RN 12:35 PM Versed 2 mg Intravenous Maria Luisa Castañeda RN 12:35 PM Fentanyl 50 mcg Intravenous Maria Luisa Castañeda RN 12:41 PM Benadryl 25 mg Intravenous Maria Luisa Castañeda RN 12:43 PM Lidocaine 2% 19 ml Subcutaneous Vera Callaway MD, FACC 12:45 PM Oxygen 4 L/min nasal cannula Maria Luisa Castañeda RN 12:46 PM Oxygen 10 L/min Oxy Mask Maria Luisa Castañeda RN 12:48 PM Oxygen 15 L/min Oxy Mask Maria Luisa Castañeda RN 01:46 PM Narcan 0.4 mg Intravenous Jerald Roberts RN ASA Classification: CLASS II- Mild systemic disease (i.e. well-controlled diabetes, hypertension, asthma, cigarette smoking) Ike Score Preprocedure Postprocedure Activity 2- Moves 4 extremities sustained head lift Activity 2- Moves 4 extremities sustained head lift Circulation 2- SBP +/= 20 points of pre-anesthetic level Circulation 2- SBP +/= 20 points of pre-anesthetic level Consciousness 2- Awake and alert oriented x 3 Consciousness 2- Awake and alert oriented x 3 O2 Saturation 2- Able to maintain O2 satruation of 92% on room air O2 Saturation 2- Able to maintain O2 satruation of 92% on room air Respiratory 2- Able to deep breathe and cough well Respiratory 2- Able to deep breathe and cough well Total Score 10 Total Score 10 Contrast Agent: Isovue Diagnostic Contrast: 85 ml Total Contrast: 85 ml Fluoro Dose: 247 mGy Procedure Log Time Note Enter By 12:20 PM Vitals capture started with the following parameters, Patient=Adult, Interval=5 min, Initial Cesjrzxs=996 mmHg, Deflation Rate=5 mmHg, Cuff placed on Right Arm 12:33 PM Vitals capture started with the following parameters, Patient=Adult, Interval=5 min, Initial Mlwfkkxg=575 mmHg, Deflation Rate=5 mmHg, Cuff placed on Right Arm 12:33 PM CathStat 12:34 PM Recorded ECG: HR=59 Condition=Condition 1 12:34 PM HR=59 bpm, BOHR=764/71 mmhg, SpO2=97.0 %, Resp=16 B/min, Comment=Paced 12:34 PM 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 [facility] 12[facility] PM Maria Luisa Castañeda RN Position: Technology Assistant Time in: 12:34 [facility] 12[facility]34 PM Kenyetta Mcgovern RT (R) Position: Scrub Time in: 12:34 [email or web address] 12:34 PM Justina Au RT (R) Position: Monitor Time in: 12:34 [facility] 12[facility]34 PM Patient charges- Angio tray pack, Navilyst 3mm J, Pulse Oximetry and ACIST tubing and transducer [facility] 12:34 PM Case Delayed No jcallan 12:35 PM Physician arrived 12:35 [facility] 12:35 PM Meet and greet completed [facility] 12:35 PM Sign in performed according to hospital policy. [facility] 12:[facility] PM Procedure start 12:35 [facility] 12[facility] PM Hair removed from procedure site in procedure lab using clippers. Bilateral groin prepped with Chloraprep by Justina Au RT (R), then patient was draped. Skin intact. [facility] 12:35 PM Time: 12:35 Oxygen on at 2 L/min per nasal cannula by Maria Luisa Castañeda RN [facility] 12:35 PM Time: 12:35 Versed 2 mg Intravenous Given by Maria Luisa Castañeda RN [facility] 12:36 PM Time: 12:35 Fentanyl 50 mcg Intravenous Given by Maria Luisa Castañeda RN [facility] 12:36 PM ASA Class CLASS II- Mild systemic disease (i.e. well-controlled diabetes, hypertension, asthma, cigarette smoking) [facility] 12:36 PM Time: 12:36 Patient comfortable and pain free: Yes [facility] 12:36 PM Time: 12:36LOC: 5 = Fully awake and oriented or at pre-proc level [facility] 12:38 PM Clinical Presentation: [facility] 12:39 PM HR=60 bpm, QLFJ=135/74 mmhg, SpO2=98.0 %, Resp=16 B/min, Comment=Paced 12:40 PM Time out performed according to hospital policy [facility] 12:41 PM Time: 12:41 Benadryl 25 mg Intravenous Given by Maria Luisa Castañeda RN [facility] 12:43 PM Time: 12:43 19 ml Lidocaine 2% to right groin Subcutaneous Given by Vera Callaway MD, [facility] dspell 12:44 PM HR=60 bpm, PTOX=119/74 mmhg, SpO2=92.0 %, Resp=11 B/min, Comment=Paced 12:45 PM Time: 12:45 Oxygen on at 4 L/min per nasal cannula by Maria Luisa Castañeda RN [facility] 12:46 PM Time: 12:46 Oxygen on at 10 L/min per Oxy Mask by Maria Luisa Castañeda [facility] 12:47 PM Access obtained by percutaneous puncture. 5Fr 10cm Terumo Ariel sheath placed in right Femoral artery. [id number] dspell 12:47 PM 5Fr FL 4 catheter inserted over the wire [facility] dspell 12:47 PM 0.035 145cm Navilyst 3mmJ wire [id number] dspell 12:47 PM LCA angiography performed in multiple views. [email or web address] 12:48 PM Recorded Pressure: Ao, HR=60, Condition=Condition 1 (Aorta) Ao 102/63/80 12:48 PM Time: 12:48 Oxygen on at 15 L/min per Oxy Mask by Maria Luisa Castañeda RN [email or web address] 12:49 PM HR=60 bpm, JOZD=199/69 mmhg, SpO2=99.0 %, Resp=7 B/min, Comment=Paced 12:49 PM 0.035 260cm Navilyst 3mmJ wire [id number] dspell 12:49 PM Catheter removed dspell 12:49 PM 5Fr FR 4 catheter inserted over the wire [facility] dspell 12:50 PM RCA angiography performed in multiple views. [email or web address] 12:50 PM Recorded Pressure: Ao, HR=60, Condition=Condition 1 (Aorta) Ao 92/59/74 12:51 PM SVG to the 1st OM angio performed in multiple views. dspell 12:51 PM Time: 12:36LOC: 3 = Answers simple questions/follows commands [email or web address] 12:51 PM Time: 12:36 Patient comfortable and pain free: Yes dspell 12:52 PM Catheter removed dspell 12:52 PM 5Fr IM catheter inserted over the wire [id number] dspell 12:53 PM Left AUBRIE to the LAD angio performed in multiple views. [email or web address] 12:53 PM Catheter removed dspell 12:54 PM HR=59 bpm, FQSV=055/61 mmhg, QyR9=034.0 %, Resp=11 B/min, Comment=Paced 12:54 PM 5Fr Pigtail catheter inserted over the wire [facility] dspell 12:54 PM Catheter selectively placed in left ventricle dspell 12:54 PM Bolus angiogram of left Ventricle complete: 8 ml/sec for a total of 24 mls [email or web address] 12:55 PM Pressure channel 1 zeroed. 12:55 PM Recorded Pressure: LV, HR=60, Condition=Condition 1 (Left Ventricle) LV 87/19/18 12:56 PM Recorded Pressure: LV, Ao, HR=60, Condition=Condition 1 (Left Ventricle) LV 86/26/29, (Aorta) Ao 86/48/67 12:56 PM Catheter removed dspell 12:56 PM reviewing films dspell 12:57 PM Bolus angiogram of right Femoral complete: 4 ml/sec for a total of 7 mls dspell 12:59 PM HR=60 bpm, FKXB=717/59 mmhg, XvW1=819.0 %, Resp=22 B/min 01:00 PM Procedure completed at 13:00 dspell 01:00 PM Sign out completed: Radiation Dose 247.47 mGy Fluoro Time: 3.4 Isovue 370 - 200ml contrast ml given by Vera Callaway MD, [facility]. Complications: NoneCardiac Rehab Consult needed: NoConfirmed administered medications: Yes [email or web address] 01:00 PM Isovue 370 - 200ml,1 Bottle(s) used. dspell 01:00 PM Arterial sheath pulled, Mynx closure device used and was Successful S/N. dspell 01:00 PM Estimated Blood Loss: minimal dspell 01:01 PM Post ECG Atrial Fibrillation dspellman 01:01 PM Post Blood Pressure 105/59 dspellman 01:04 PM HR=66 bpm, PXEA=343/58 mmhg, Resp=10 B/min, Comment=Paced 01:04 PM Coronary Dominance: Left [email or web address] 01:04 PM Did you address JOYA flow and Dominance? Yes [email or web address] 01:04 PM Site status No bleeding/hematoma - Rt Groin as reported by Sites, Kenyetta RT (R) at 13:04 [email or web address] 01:05 PM Opsite applied dspellman 01:05 PM Family placed in consult room. [email or web address] 01:05 PM Fluoro Time: 3.4 [email or web address] 01:05 PM Isovue 370 - 200ml contrast 85 ml given by Vera Callaway MD, [facility]. [email or web address] 01:05 PM Radiation Dose 247.47 mGy [email or web address] 01:07 PM Time: 12:51 Patient comfortable and pain free: Yes [email or web address] 01:07 PM Time: 12:51LOC: 4 = Oriented but drowsy [email or web address] 01:09 PM Report given to Nayana FENG Pt taken to 3B Room #23. 13:09 [email or web address] 01:10 PM Patient sleepy and responds to stimuli [email or web address] 01:15 PM Patient drowsy and responding to sternal rub [email or web address] 01:20 PM Patient continues to be drowsy oxygen at 97% 15 liters oxymask. [email or web address] 01:35 PM Patient drowsy and no longer responding to sternal rub oxygen 97%. [email or web address] 01:40 PM Proceeding to get in touch with Cintia Callaway MD for reversal medication. [email or web address] 01:45 PM Verbal order recieved for reversal medication by Dr. Cintia Callwaay [email or web address] 01:46 PM Time: 13:46 Narcan 0.4 mg Intravenous Given by Jerald Roberts RN [email or web address] 01:47 PM Patient responding to medication and taken to Holding room. [email or web address] Complications Complication None Hemodynamics Pressures Site Systolic/A Wave Diastolic/V Wave Mean AO 102 63 80 AO 92 59 74 LV 87 19 18 LV 86 26 29 AO 86 48 67 Post Procedure Information Blood Pressure: 105/59 mmHg Rhythm: Atrial Fibrillation Post procedural instructions were given Closure Device Time Device Success/Fail 10/20/2017 2:10:00 PM Mechanical Compression Successful Site Checks Time Location Status Staff Sheath In? Note 01:04 PM Rt Groin No bleeding/hematoma Sites, Kenyetta RT (R) Pulses Updated by Jigna Power RT(R) on 10/20/2017 1:53:41 PM electronically signed on 10/20/2017 3:30:44 PM with status of Final
[2017-10-20] MEDS ORDERED: *HR* Warfarin 4 MG TABLET PO ONE (18:00)
[2017-10-20] MEDS ORDERED: Warfarin perPT PO PRN (18:00)
[2017-10-20] MEDS ORDERED: Heparin 25,000 UNIT/500 ML D5W 25,000 UNIT/500 ML BAG IVC SCH (18:45)
[2017-10-20] MEDS: traZODone 50 MG TABLET PO PRN (20:29)
[2017-10-20] MEDS: Latanoprost 2.5 ML BOTTLE BOTH EYES SCH (20:33)
[2017-10-21] MEDS: *HR* Amiodarone 200 MG TABLET PO SCH (08:52)
[2017-10-21] MEDS: Pregabalin 75 MG CAPSULE PO SCH ×2 (08:53→14:29)
[2017-10-21] MEDS: Sennosides/Docusate Sodium TABLET PO SCH (08:53)
[2017-10-21] MEDS: Doxycycline 100 MG CAPSULE PO SCH (08:53)
[2017-10-21] MEDS: Lactobacillus 1 EACH CAP.SPRINK PO SCH (08:54)
[2017-10-21] MEDS: Furosemide 40 MG TABLET PO SCH (08:54)
[2017-10-21] MEDS: Cholecalciferol (D-3) 1,000 UNIT TABLET PO SCH (08:58)
[2017-10-21] MEDS ORDERED: Metoprolol XL (24 HR) Succ 50 MG TAB.ER.24H PO SCH (09:00)
[2017-10-21 09:40] LABS: INR 1.4; Prothrombin Time 15.6 Seconds (9.4-12.1)
[2017-10-21 09:43] LABS: Activated Partial Thrombo Time 65.7 Seconds (26.0-36.0)
[2017-10-21 11:33] VITALS: BP 118/61
[2017-10-21] MEDS: Tiotropium 18 MCG inhalation IH SCH (11:49)
--- NOTE | 2017-10-21 13:00 | Discharge Summary ---
- NOTES TO OUTPATIENT PROVIDER Notes to Outpatient Provider: Being discharged home on Lovenox. INR 1.4. Continue Lovenox bridge until INR between 2 and 3. Hgb will need to be monitored closely Orders not resulted at time of discharge: Pending orders 10/22/17 04:00 PT/INR [Prothrombin Time INR] [COAG] AM 0400 10/23/17 04:00 PT/INR [Prothrombin Time INR] [COAG] AM 0400 10/24/17 04:00 PT/INR [Prothrombin Time INR] [COAG] AM 0400 10/25/17 04:00 PT/INR [Prothrombin Time INR] [COAG] AM 0400 10/26/17 04:00 PT/INR [Prothrombin Time INR] [COAG] AM 0400 Date of Encounter: 10/21/17 Time of Encounter: 12:57 - Discharge Diagnosis (1) Acute on chronic systolic CHF (congestive heart failure) Priority: Primary Status: Acute Comments: TTE completed admission showed newly reduced of EF 35-40%, global left ventricular systolic dysfunction with regional variations. Atypical septal motion consistent with post-operative status. Indeterminate diastolic function. Moderately dilated and hypokinetic right ventricle. Moderate tricuspid regurgitation. Mild pulmonary hypertension. Evaluated by cardiology who recommended [facility] to evaluate for ischemic cause on 10/20/2017 which did not show obstructive CAD; no intervention required. Appeared euvolemic. Continue ARB, BB. Follow-up with cardiology outpatient. (2) Atrial fibrillation Priority: Primary Status: Chronic Comments: device check showed underlying atrial flutter, HR 120's. PPM settings changed and HR decreased to 70. Plan for atrial antitachycardia pacing once on anticoagulation for at least three weeks. Continue Coumadin with Lovenox bridge ([facility] with a cost of 8 hours. Patient has administered Lovenox in the past and feels comfortable doing so). Continue Coumadin with Lovenox bridge, amiodarone, BB at discharge. Home health care to monitor INR. Follow-up with cardiology outpatient. R Qualifiers: Atrial fibrillation type: paroxysmal Qualified Code(s): I48.0 - Paroxysmal atrial fibrillation (3) Anemia Priority: Primary Status: Acute Comments: Hemoglobin stable. Iron 12, % Sat 4. Received one time dose IV Venofer. Follow up with PCP and oncology. Hgb 9.5 at discharge. Cont home iron supplements Qualifiers: Anemia type: other cause Other causes of anemia: other cause, not classified Qualified Code(s): D64.89 - Other specified anemias (4) COPD (chronic obstructive pulmonary disease) Priority: Secondary Status: Chronic Comments: per hx. NO evidence of exacerbation. Qualifiers: COPD type: chronic bronchitis Chronic bronchitis type: simple Qualified Code(s): J41.0 - Simple chronic bronchitis (5) Hx of CABG Priority: Secondary Status: Chronic Comments: per hx. Asymptomatic, denied chest pain. 10/20/17 [facility] with triple-vessel CAD. 2 of 3 CABG grafts patent. Cont home coumadin, Plavix, BB, statin. (6) Diabetes Priority: Secondary Status: Chronic Comments: per hx. Cont home diabetes medication regimen Qualifiers: Diabetes mellitus type: type 2 Diabetes mellitus complication status: with hyperglycemia Diabetes mellitus detention insulin use: without detention use Qualified Code(s): E11.65 - Type 2 diabetes mellitus with hyperglycemia Hospital course: See assessment and plan for hospital course Discharge discussed with: patient, family - Time Spent with Patient Total time spent providing and/or coordinating discharge services: Less than 30 minutes - Discharge Medications Prescriptions: Enoxaparin [Lovenox] 90 mg SQ Q12HR #28 syr Home Medications: GlipiZIDE [Glucotrol] 7.5 mg PO BID 04/13/15 [History] Atorvastatin [Lipitor] 10 mg PO HS 10/16/15 [History] Albuterol Sulfate [Albuterol Inhaler] 2 puff IH QID PRN 06/01/17 [History] Cholecalciferol (Vitamin D3) [Vitamin D3] 2,000 unit PO DAILY 06/01/17 [History] Warfarin [Coumadin] 2 mg PO TUTHSA 06/01/17 [History] Warfarin [Coumadin] 4 mg PO SUMOWEFR 06/01/17 [History] amLODIPine [Norvasc] 5 mg PO DAILY 06/01/17 [History] Polyethylene Glycol 3350 [MiraLAX] 17 gm PO BID PRN 06/03/17 [History] Travoprost [Travatan Z] 1 drop BOTH EYES HS 06/03/17 [History] Ipratropium/Albuterol Neb [Duoneb] 3 ml IH QID PRN #1 06/06/17 [Rx] Clopidogrel [Plavix] 75 mg PO DAILY 06/19/17 [History] Ferrous Sulfate [Iron] 325 mg PO BID 06/19/17 [History] Levothyroxine [Synthroid] 50 mcg PO 0630 06/19/17 [History] MOM Conc [MILK OF MAGNESIA conc] 30 ml PO HS PRN 06/19/17 [History] Sennosides/Docusate Sodium [Senna-Docusate Sodium Tablet] 2 tab PO BID 06/19/17 [History] Losartan Potassium [Cozaar] 100 mg PO DAILY 06/24/17 [History] Metformin HCl [Glucophage] 1,000 mg PO BID 06/24/17 [History] Potassium Chloride [Klor-Con Sprinkle] 10 meq PO DAILY 06/24/17 [History] Furosemide [Lasix] 20 mg PO DAILY #30 tablet 06/29/17 [Rx] Metoprolol [Lopressor] 25 mg PO BID #60 tablet 06/29/17 [Rx] Pregabalin [Lyrica] 150 mg PO TID #10 capsule 07/08/17 [Rx] Sertraline [Zoloft] 100 mg PO QPM #30 tablet 07/08/17 [Rx] traZODone [TraZODone] 50 mg PO HS PRN #30 tablet 07/08/17 [Rx] Amiodarone [Cordarone] 200 mg PO DAILY 10/12/17 [History] Bisacodyl [Dulcolax] 5 mg PO BID 10/12/17 [History] Brimonidine 0.2% [Alphagan] 1 drop BOTH EYES TID 10/12/17 [History] Doxycycline Monohydrate [Mondoxyne Nl] 100 mg PO DAILY 10/12/17 [History] L. Acidophilus/Pectin, [place] [Acidophilus Probiotic Capsule] 1 each PO DAILY [History] Nitroglycerin [Nitrostat] 0.4 mg SL Q5M PRN 10/12/17 [History] OxyCODONE Immed Rel [Roxicodone 20 MG] 20 mg PO Q12H PRN 10/12/17 [History] Simethicone [Gas-X] 160 mg PO TID PRN 10/12/17 [History] Tiotropium [place] [Spiriva Respimat] 2 puff IH DAILY 10/12/17 [History] Enoxaparin [Lovenox] 90 mg SQ Q12HR #28 syr 10/21/17 [Rx] Allergies/Adverse Reactions: 3 Allergy/AdvReac Type Severity Reaction Status Date / Time azithromycin Allergy See Verified 06/19/17 09:01 Comments ceftriaxone Allergy See Verified 06/19/17 09:01 Comments morphine Allergy See Verified 06/19/17 09:01 Comments sulfamethoxazole AdvReac See Verified 06/19/17 09:01 [From Bactrim] Comments trimethoprim [From Bactrim] AdvReac See Verified 06/19/17 09:01 Comments Date of admission: 10/13/17 03:13 Primary care physician: PCP BHAVIN Consults: 10/13/17 10:36 Consult to Cardiology [CONS] Routine Comment: Consulting Provider: Cardiology Petra Reason for Consult: afib rvr, chf. Pt was here in early August for the same thing, was taken off of Amiodarone. [facility], returns with same symptoms. Requesting help with medication adjustments, please. Time Notified: 10:39 Call Completed: Yes 10/13/17 15:19 Consult to Electrophysiology (EP) [CONS] Routine Consulting Provider: Electrophysiology [place] Reason for Consult: A-Flutter Call Completed: Yes Discharging clinician: Felicita Ortega Anticipated date of discharge: 10/21/17 - Constitutional Vitals: Temp Pulse Resp BP Pulse Ox 98.6 F 60 14 118/61 95 10/21/17 11:32 10/21/17 11:32 10/21/17 11:32 10/21/17 11:32 10/21/17 11:32 General appearance: Present: cooperative, A&O X 3, pleasant, no acute distress, answers questions appropriately - Head Head exam: Present: atraumatic, normocephalic - Eye Eye exam: Present: PERRL, conjuntiva pink, sclera anicteric Pupils: Present: PERRL - Neck Neck exam general surgery: Present: supple, trachea midline. Absent: lymphadenopathy - Respiratory Respiratory exam: Present: CTAB. Absent: accessory muscle use, rales, rhonchi, wheezes - Cardiovascular Cardiovascular exam: Present: RRR, +S1, +S2. Absent: diastolic murmur, gallop, rubs, systolic murmur - GI/Abdominal GI/Abdominal exam: Present: normal bowel sounds, soft, no peritoneal signs. Absent: distended, tenderness - Extremities Exam Extremities exam: Present: warm, radial pulses palpable and symmetrical. Absent : calf tenderness, cyanotic, pedal edema - Neurological Exam Neurological exam: Present: CN II-XII intact, oriented X3, no focal deficits. Absent: pronater drift, facial droop, speech deficit - Skin Skin exam: Present: dry, intact - Patient Status Disposition: Home Health Service Condition: Good - Discharge Instructions Instructions: Enoxaparin (Injection), Anemia (DC) [facility]: [facility] [Primary Care Provider[facility] - Additional Instructions: Continue Lovenox injections twice a day until INR is between 2 and 3 Resume INR monitoring as previously scheduled - Diet and Activity Activity: increase activity as tolerated Diet: diabetic diet, low fat, low cholesterol
[2017-10-21] MEDS ORDERED: *HR* Enoxaparin 100 MG/ML SYRINGE SQ ONE (15:55)
[2017-10-21] MEDS ORDERED: *HR* Warfarin 4 MG TABLET PO ONE (18:00)
--- NOTE | 2017-10-22 16:18 | Electrocardiograph Report ---
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
== END 2017-10-21 16:19 | disposition home health service (06) | DRG 287 ==
LOC: EMEROO 16:00 → 3BNU 16:00
PROVIDERS: ADMIT Registered Nurse; ATTEND Registered Nurse

== ENCOUNTER 2017-12-29 16:24 | Inpatient (IN) ==
[2017-12-29] MEDS ORDERED: 0.9 % Sodium Chloride 1,000 ML IVC ONE (16:38)
--- NOTE | 2017-12-29 16:45 | Emergency Department Note ---
Disposition Clinical Impression: Weakness, Supratherapeutic INR Anemia Qualifiers: Anemia type: unspecified type Qualified Code(s): D64.9 - Anemia, unspecified Chronic kidney disease Qualifiers: Chronic kidney disease stage: unspecified stage Qualified Code(s): N18.9 - Chronic kidney disease, unspecified Disposition: Admitted As Inpatient Condition: Fair [facility]Primary Care Provider[facility] - Forms: ED Satisfaction Letter Time of Disposition: 19:01 Weakness HPI - General Chief complaint: ED Weakness Stated complaint: weakness Time Seen by Provider: 12/29/17 16:38 Source: patient, EMS Mode of arrival: EMS Limitations: no limitations Nursing Notes Reviewed: Yes Vital Signs Reviewed: Yes - History of Present Illness HPI Narrative: 72-year-old male with a history of ACS, on Coumadin, pacemaker presents for evaluation of weakness. Patient's symptom onset was earlier today. Patient had increasing weakness primarily in his lower legs. Patient denies any falls but felt unsteady on his feet. Patient was brought in via EMS. Symptom onset was around 11:00 this morning. Patient notes he has been having shortness of breath as well as chest pain however his symptoms are currently resolved. Patient denies any fevers. Patient denies any abdominal pain. No nausea or vomiting. No blood in the stool or dark tarry stools. Patient does state that he is on Coumadin. Patient denies any falls which is confirmed by the family at bedside. EMS report the patient was hypotensive in the field with a pressure of 80 systolic. IV fluids infusing. States that the patient did take his blood pressure medications earlier today. Pain Scale: 0 - Related Data Home Medications Medication Instructions Recorded Confirmed GlipiZIDE [Glucotrol] 7.5 mg PO DAILY 04/13/15 12/29/17 Atorvastatin [Lipitor] 10 mg PO HS 10/16/15 12/29/17 Albuterol Sulfate [Albuterol 2 puff IH QID PRN 06/01/17 12/29/17 Inhaler] Cholecalciferol (Vitamin D3) 2,000 unit PO DAILY 06/01/17 12/29/17 [Vitamin D3] Warfarin [Coumadin] 2 mg PO TUTHSA 06/01/17 12/29/17 Warfarin [Coumadin] 4 mg PO SUMOWEFR 06/01/17 12/29/17 amLODIPine [Norvasc] 5 mg PO DAILY 06/01/17 12/29/17 Polyethylene Glycol 3350 [MiraLAX] 17 gm PO BID PRN 06/03/17 12/29/17 Travoprost [Travatan Z] 1 drop BOTH EYES HS 06/03/17 12/29/17 Clopidogrel [Plavix] 75 mg PO DAILY 06/19/17 12/29/17 Ferrous Sulfate [Iron] 325 mg PO BID 06/19/17 12/29/17 Levothyroxine [Synthroid] 50 mcg PO 0630 06/19/17 12/29/17 MOM Conc [MILK OF MAGNESIA conc] 30 ml PO HS PRN 06/19/17 12/29/17 Sennosides/Docusate Sodium 2 tab PO BID 06/19/17 12/29/17 [Senna-Docusate Sodium Tablet] Losartan Potassium [Cozaar] 100 mg PO DAILY 06/24/17 12/29/17 Metformin HCl [Glucophage] 1,000 mg PO BID 06/24/17 12/29/17 Potassium Chloride [Klor-Con 10 meq PO DAILY 06/24/17 12/29/17 Sprinkle] Amiodarone [Cordarone] 200 mg PO DAILY 10/12/17 12/29/17 Bisacodyl [Dulcolax] 5 mg PO BID 10/12/17 12/29/17 Brimonidine 0.2% [Alphagan] 1 drop BOTH EYES TID 10/12/17 12/29/17 Nitroglycerin [Nitrostat] 0.4 mg SL Q5M PRN 10/12/17 12/29/17 OxyCODONE Immed Rel [Roxicodone 20 20 mg PO Q12H PRN 10/12/17 12/29/17 MG] Simethicone [Gas-X] 160 mg PO TID PRN 10/12/17 12/29/17 Tiotropium [place] [Spiriva 2 puff IH DAILY 10/12/17 12/29/17 Respimat] Duloxetine HCl [Cymbalta] 30 mg PO DAILY 11/16/17 12/29/17 Cetirizine HCl [Zyrtec] 10 mg PO DAILY 12/29/17 12/29/17 Dextrose [Glucose] 1 tab PO ONCE PRN 12/29/17 12/29/17 Furosemide [Lasix] 20 mg PO BID 12/29/17 12/29/17 Metoprolol Succinate [Toprol Xl] 50 mg PO DAILY 12/29/17 12/29/17 Sennosides/Docusate Sodium [Colace 2 tab PO BID 12/29/17 12/29/17 2-in-1 Tablet] hydrOXYzine HCl [Hydroxyzine HCl] 25 mg PO Q8H 12/29/17 12/29/17 Previous Rx's Medication Instructions Recorded Pregabalin [Lyrica] 150 mg PO TID #10 capsule 07/08/17 traZODone [TraZODone] 50 mg PO HS PRN #30 tablet 07/08/17 Allergies Allergy/AdvReac Type Severity Reaction Status Date / Time azithromycin Allergy See Verified 11/16/17 13:41 Comments ceftriaxone Allergy See Verified 11/16/17 13:41 Comments morphine Allergy See Verified 11/16/17 13:41 Comments sulfamethoxazole AdvReac See Verified 11/16/17 13:41 [From Bactrim] Comments trimethoprim [From Bactrim] AdvReac See Verified 11/16/17 13:41 Comments All systems ED: reviewed and negative except as stated. Constitutional: Denies: fever Cardiovascular: Denies: chest pain Respiratory: Denies: cough Gastrointestinal: Denies: abdominal pain, nausea, vomiting Past Medical History - Past Medical History Source: patient, obtained from family Medical history: Reports: atrial fibrillation, cirrhosis, CHF, COPD, coronary artery disease, CVA, DVT, diabetes, GERD, hepatitis, hypertension, myocardial infarction, peripheral artery disease, thyroid disease, syncope Surgical history: Reports: appendectomy, carotid endarterectomy, coronary bypass (CABG), hip replacement, LE stent(s), orthopedic, other, vascular surgery , pacemaker Psychiatric history: Reports: anxiety, PTSD - Social History Smoking Status: Former smoker Smokeless Tobacco Status: No Alcohol use: Reports: none Drug use: Reports: none Physical Exam - General Limitations: no limitations General appearance: alert, in no apparent distress - Head Head exam: atraumatic, normocephalic, normal inspection - Eye Eye exam: Present: normal appearance, PERRL, EOMI - ENT ENT exam: normal exam, normal oropharynx - Neck Neck exam: Present: normal inspection - Chest Chest inspection: Present: normal inspection, symmetric chest wall rise - Respiratory Respiratory exam: Present: normal lung sounds bilaterally. Absent: respiratory distress - Cardiovascular Cardiovascular exam: Present: bradycardia. Absent: systolic murmur - Abdominal Exam Abdominal exam: Present: soft, Non-Tender. Absent: guarding, rebound - Rectal Exam Company Driver present during exam: Yes Rectal exam: Present: normal inspection. Absent: heme (-) stool, heme (+) stool , bloody stool - Extremities Exam Extremities exam: Present: normal inspection. Absent: pedal edema - Expanded Lower Extremity Exam Hip/Pelvis exam: Present: normal inspection. Absent: tenderness Lower leg exam: Present: normal inspection. Absent: tenderness Ankle exam: Present: normal inspection. Absent: tenderness Foot/toe exam: Present: normal inspection. Absent: tenderness Neurovascular/Tendon exam: Present: normal capillary refill. Absent: pulse deficit, motor deficit, sensory deficit - Back Exam Back exam: Present: normal inspection - Neurological Exam Neurological exam: Present: alert, oriented X3, CN II-XII intact - Expanded Neurological Exam Patient oriented to: Present: person, place, time Speech: Present: fluid speech Cranial nerves: EOM function (II, III, IV, ): Normal, facial sensation (V): Normal, facial palsy (VII): Normal, spinal accessory function (XI): Normal, tongue deviation (XII): Normal Motor strength - LUE: 5/5 Motor strength - RUE: 5/5 Motor strength - LLE: 4/5 Motor strength - RLE: 4/5 Coma Scale Eye Opening: Spontaneous Coma Scale Motor Response: Obeys Commands Coma Scale Verbal Response: Oriented Coma Scale Total: 15 - Skin Skin exam: Present: warm, dry, intact, normal color Course Course Narrative: Patient seen and examined. Patient's son a stroke alert given the time of onset. Patient has generalized weakness more pronounced in the lower extremity. Patient is on anticoagulation with require neuroimaging. Concerns for CVA versus TIA. Patient also get it basic screening cardiopulmonary evaluation. Noted be hypotensive in the field responding to fluids. - Reevaluation(s) Reevaluation #1: Patient seen and examined. Patient's family at bedside. Patient's son states that he does not feel that his dad is acting his normal self. Patient's son states that he feels these has been slurring his speech. Not his baseline from yesterday. Patient was not a stroke alert given the time of onset was greater than 4/2 hours from presentation of possible last known well. Initial head CT was negative for intracranial hemorrhage. Time: 17:43 Reevaluation #2: Patient's vitals are stable. Patient's family at bedside. Updated on plan of care. Time: 19:10 Vital Signs Temperature 97.9 F 12/29/17 16:25 Pulse Rate 95 12/29/17 16:25 Respiratory Rate 16 12/29/17 16:25 Blood Pressure 106/55 12/29/17 16:25 O2 Sat by Pulse Oximetry 93 12/29/17 16:25 Temperature 97.9 F 12/29/17 16:25 Pulse Rate 61 12/29/17 19:01 Respiratory Rate 16 12/29/17 19:01 Blood Pressure 86/59 12/29/17 19:01 O2 Sat by Pulse Oximetry 92 12/29/17 19:01 Oxygen Delivery Oxygen Delivery Nasal Cannula Weakness - MDM Narrative Medical decision making narrative: She presents for concerns of generalized weakness. Patient states he has also been having shortness of breath intermittent chest pain over the past few days. Patient typically is able to ambulate without any difficulty. Patient denies any trauma or falls. Patient denies any blood in his stool or dark tarry stools. EMS reported the patient was hypotensive initially with a systolic in the 80s. Patient's blood pressure responded to fluids. Patient hemoglobin is chronically anemic. Patient has a negative stool guaiac. Patient denies any chest pain or shortness of breath currently. Family states that the patient is not himself. The patient is alert and oriented however family is concerned that he is normally more active. Patient does live at home. Patient does have a supratherapeutic INR with no overt signs of bleeding. Patient will be admitted to hospital service for continued monitoring support, physical therapy evaluation, and discharge planning. Patient also has evidence of hyperkalemia without EKG changes. Patient's receiving IV fluid hydration. No need for correction of electrolytes at this time and should correct with simple IV fluid hydration. - Lab Data Lab results reviewed: Yes I reviewed the patient's lab results. Result diagrams: 12/29/17 17:29 12/29/17 17:29 Lab Results 12/29/17 12/29/17 12/29/17 Range/Units 17:29 17:29 17:29 WBC 11.4 H (4.3-11.1) K/mcL RBC 3.93 L (4.19-5.50) M/mcL Hgb 10.7 L (12.9-16.9) g/dL Hct 32.3 L (37.5-50.1) % MCV 82.2 L (83.0-100.0) fL MCH 27.2 L (28.0-33.3) pg MCHC 33.1 (31.6-35.5) g/dL RDW 21.4 H (11.5-14.5) % Plt Count 214 (140-400) K/mcL MPV 9.4 (9.4-12.4) fL Immature Gran % 0.8 (0-4) % Seg Neutrophils % 73.0 % Lymphocytes % 14.5 % Monocytes % 8.0 % Eosinophils % 3.3 % Basophils % 0.4 % Neutrophils # 8.3 (1.6-8.9) K/mcL Lymphocytes # 1.7 (0.6-4.6) K/mcL Monocytes # 0.9 (0.0-1.3) K/mcL Eosinophils # 0.4 (0.0-0.6) K/mcL Basophils # 0.1 (0.0-0.2) K/mcL PT (9.4-12.1) Seconds INR Sodium 135 L (136-145) mEq/L Potassium 5.5 H (3.5-5.1) mEq/L Chloride 100 (98-107) mEq/L Carbon Dioxide 24 (23-29) mEq/L BUN 31 H (8-23) mg/dL Creatinine 1.55 H (0.70-1.30) mg/dL Est GFR ( Amer) 54 L (> 60) Est GFR (Non-Af Amer) 44 L (> 60) BUN/Creatinine Ratio 20 (6-26) Glucose 83 (70-105) mg/dL Calculated Osmolality 286 (280-300) Lactic Acid 2.8 H (0.5-2.2) mmol/L Calcium 9.3 (8.6-10.3) mg/dL Total Bilirubin 0.4 (0.3-1.0) mg/dL AST 23 (13-39) Units/L ALT 16 (7-52) Units/L Alkaline Phosphatase 70 (34-104) Units/L Troponin I < 0.03 (< 0.04) ng/mL Serum Total Protein 6.5 (6.4-8.9) g/dL Albumin 3.7 (3.5-5.7) g/dL Globulin 2.8 (2.4-3.5) g/dL Albumin/Globulin Ratio 1.3 (1.1-2.2) Urine Color (Yellow) Urine Clarity (Clear) Urine pH (5.0-8.0) pH Units Ur Specific [place] (1.010-1.025) Urine Protein (Neg-Trace) mg/dL Urine Glucose (UA) (Normal) mg/dL Urine Ketones (Negative) mg/dL Urine Blood (Negative) Urine Nitrite (Negative) Urine Bilirubin (Negative) Urine Urobilinogen (Normal) mg/dL Ur Leukocyte Esterase (Negative) Urine Microscopic RBC (0-3) per hpf Urine Microscopic WBC (0-3) per hpf Ur Squamous Epith Cells (None-Few) per lpf Urine Bacteria (None-Few) per hpf Hyaline Casts (None-Few) per lpf Ur Culture Indicated? (NO) Blood Type Antibody Screen 12/29/17 12/29/17 12/29/17 Range/Units 17:29 17:29 18:11 WBC (4.3-11.1) K/mcL RBC (4.19-5.50) M/mcL Hgb (12.9-16.9) g/dL Hct (37.5-50.1) % MCV (83.0-100.0) fL MCH (28.0-33.3) pg MCHC (31.6-35.5) g/dL RDW (11.5-14.5) % Plt Count (140-400) K/mcL MPV (9.4-12.4) fL Immature Gran % (0-4) % Seg Neutrophils % % Lymphocytes % % Monocytes % % Eosinophils % % Basophils % % Neutrophils # (1.6-8.9) K/mcL Lymphocytes # (0.6-4.6) K/mcL Monocytes # (0.0-1.3) K/mcL Eosinophils # (0.0-0.6) K/mcL Basophils # (0.0-0.2) K/mcL PT 37.2 H (9.4-12.1) Seconds INR 3.4 Sodium (136-145) mEq/L Potassium (3.5-5.1) mEq/L Chloride (98-107) mEq/L Carbon Dioxide (23-29) mEq/L BUN (8-23) mg/dL Creatinine (0.70-1.30) mg/dL Est GFR ( Amer) (> 60) Est GFR (Non-Af Amer) (> 60) BUN/Creatinine Ratio (6-26) Glucose (70-105) mg/dL Calculated Osmolality (280-300) Lactic Acid (0.5-2.2) mmol/L Calcium (8.6-10.3) mg/dL Total Bilirubin (0.3-1.0) mg/dL AST (13-39) Units/L ALT (7-52) Units/L Alkaline Phosphatase (34-104) Units/L Troponin I (< 0.04) ng/mL Serum Total Protein (6.4-8.9) g/dL Albumin (3.5-5.7) g/dL Globulin (2.4-3.5) g/dL Albumin/Globulin Ratio (1.1-2.2) Urine Color Yellow (Yellow) Urine Clarity Clear (Clear) Urine pH 6.5 (5.0-8.0) pH Units Ur Specific [place] 1.017 (1.010-1.025) Urine Protein Negative (Neg-Trace) mg/dL Urine Glucose (UA) Normal (Normal) mg/dL Urine Ketones Trace H (Negative) mg/dL Urine Blood Negative (Negative) Urine Nitrite Negative (Negative) Urine Bilirubin Negative (Negative) Urine Urobilinogen Normal (Normal) mg/dL Ur Leukocyte Esterase Small H (Negative) Urine Microscopic RBC 0-3 (0-3) per hpf Urine Microscopic WBC 0-3 (0-3) per hpf Ur Squamous Epith Cells Many H (None-Few) per lpf Urine Bacteria Few (None-Few) per hpf Hyaline Casts Few (None-Few) per lpf Ur Culture Indicated? NO. A (NO) Blood Type O POSITIVE Antibody Screen NEGATIVE - Radiology Data Radiology results reviewed: Yes I reviewed the patient's radiology results. Chest X-Ray 12/29/17 16:38 IMPRESSION: Chronic findings in the chest without acute airspace disease identified. Right pleural thickening versus persistent small effusion. D/ / Jose Alanis / Jose Alanis Interpreting Provider: Jose Alanis Head CT 12/29/17 16:38 IMPRESSION: No acute intracranial abnormality. D/ / Irma Cazares MD / Irma Cazares MD Interpreting Provider: Irma Cazares MD - EKG Data EKG attestation: Yes I reviewed and interpreted this EKG. EKG results narrative: Electronic atrial ventricular paced rhythm at rate of 60. Right axis deviation. No evidence of sgarbossa. QTC 490. S.B.A.R. - S.B.A.RLeeanne Situation: Demographics Background: Presenting Complaint Assessment: Vital Signs, Course and respsone to treatment, Patient/Family Expectation Recommendation: Barrier(s) to disposition, Recommendation based on pending studies, treatments, or consults S.B.A.RLeeanne Report Given to: Dr. Сергей Lee Repor Time: 19:10
[2017-12-29 17:42] LABS: Basophils # 0.1 K/mcL (0.0-0.2); Basophils % 0.4 %; Eosinophils # 0.4 K/mcL (0.0-0.6); Eosinophils % 3.3 %; Hematocrit 32.3 % (37.5-50.1); Hemoglobin 10.7 g/dL (12.9-16.9); Immature Granulocytes % 0.8 % (0-4); Lymphocytes # 1.7 K/mcL (0.6-4.6); Lymphocytes % 14.5 %; Mean Corpuscular HGB Conc 33.1 g/dL (31.6-35.5); Mean Corpuscular Hemoglobin 27.2 pg (28.0-33.3); Mean Corpuscular Volume 82.2 fL (83.0-100.0); Mean Platelet Volume 9.4 fL (9.4-12.4); Monocytes # 0.9 K/mcL (0.0-1.3); Neutrophils # 8.3 K/mcL (1.6-8.9); Platelet Count 214 K/mcL (140-400); Red Blood Count 3.93 M/mcL (4.19-5.50); Red Cell Distribution Width 21.4 % (11.5-14.5)
[2017-12-29 17:46] LABS: INR 3.4; Prothrombin Time 37.2 Seconds (9.4-12.1)
[2017-12-29 18:22] LABS: Alanine Aminotransferase 16 Units/L (7-52); Albumin 3.7 g/dL (3.5-5.7); Albumin/Globulin Ratio 1.3 (1.1-2.2); Alkaline Phosphatase 70 Units/L (34-104); Aspartate Amino Transferase 23 Units/L (13-39); BUN/Creatinine Ratio 20 (6-26); Bilirubin,Total 0.4 mg/dL (0.3-1.0); Blood Urea Nitrogen 31 mg/dL (8-23); Calcium 9.3 mg/dL (8.6-10.3); Carbon Dioxide 24 mEq/L (23-29); Chloride 100 mEq/L (98-107); Globulin 2.8 g/dL (2.4-3.5); Glucose 83 mg/dL (70-105); Osmolality,Calculated 286 (280-300); Potassium 5.5 mEq/L (3.5-5.1); Sodium 135 mEq/L (136-145); Total Protein 6.5 g/dL (6.4-8.9); Troponin I < 0.03 ng/mL (< 0.04); eGFR For African Americans 54 (> 60); eGFR For Non-African Americans 44 (> 60)
[2017-12-29 18:27] LABS: Bilirubin,Urine Negative (Negative); Blood,Urine Negative (Negative); Clarity,Urine Clear (Clear); Color,Urine Yellow (Yellow); Glucose,Urine (UA) Normal (Normal); Ketones,Urine Trace mg/dL (Negative); Leukocyte Esterase,Urine Small (Negative); Nitrite,Urine Negative (Negative); PH,Urine 6.5 pH Units (5.0-8.0); Protein,Urine Negative (Neg-Trace); Specific Gravity,Urine 1.017 (1.010-1.025); Urobilinogen,Urine Normal (Normal)
[2017-12-29 18:29] LABS: RBC,Urine 0-3 per hpf (0-3); Squamous Epithelial Cell,Urine Many per lpf (None-Few); WBC,Urine 0-3 per hpf (0-3)
[2017-12-29 18:49] LABS: Hyaline Casts,Urine Few per lpf (None-Few)
[2017-12-29 18:50] LABS: Bacteria,Urine Few per hpf (None-Few)
--- NOTE | 2017-12-29 19:03 | Emergency Department Note ---
Disposition Clinical Impression: Weakness, Chronic kidney disease, Supratherapeutic INR Anemia Qualifiers: Anemia type: unspecified type Qualified Code(s): D64.9 - Anemia, unspecified Disposition: Admitted As Inpatient Condition: Fair [facility]Primary Care Provider[facility] - Forms: ED Satisfaction Letter General Adult HPI - General Chief complaint: ED Weakness Stated complaint: weakness Time Seen by Provider: 12/29/17 16:38 Source: patient, EMS Mode of arrival: EMS Limitations: no limitations Nursing Notes Reviewed: Yes Vital Signs Reviewed: Yes - History of Present Illness Pain Scale: 0 - Related Data Home Medications Medication Instructions Recorded Confirmed GlipiZIDE [Glucotrol] 7.5 mg PO DAILY 04/13/15 12/29/17 Atorvastatin [Lipitor] 10 mg PO HS 10/16/15 12/29/17 Albuterol Sulfate [Albuterol 2 puff IH QID PRN 06/01/17 12/29/17 Inhaler] Cholecalciferol (Vitamin D3) 2,000 unit PO DAILY 06/01/17 12/29/17 [Vitamin D3] Warfarin [Coumadin] 2 mg PO TUTHSA 06/01/17 12/29/17 Warfarin [Coumadin] 4 mg PO SUMOWEFR 06/01/17 12/29/17 amLODIPine [Norvasc] 5 mg PO DAILY 06/01/17 12/29/17 Polyethylene Glycol 3350 [MiraLAX] 17 gm PO BID PRN 06/03/17 12/29/17 Travoprost [Travatan Z] 1 drop BOTH EYES HS 06/03/17 12/29/17 Clopidogrel [Plavix] 75 mg PO DAILY 06/19/17 12/29/17 Ferrous Sulfate [Iron] 325 mg PO BID 06/19/17 12/29/17 Levothyroxine [Synthroid] 50 mcg PO 0630 06/19/17 12/29/17 MOM Conc [MILK OF MAGNESIA conc] 30 ml PO HS PRN 06/19/17 12/29/17 Sennosides/Docusate Sodium 2 tab PO BID 06/19/17 12/29/17 [Senna-Docusate Sodium Tablet] Losartan Potassium [Cozaar] 100 mg PO DAILY 06/24/17 12/29/17 Metformin HCl [Glucophage] 1,000 mg PO BID 06/24/17 12/29/17 Potassium Chloride [Klor-Con 10 meq PO DAILY 06/24/17 12/29/17 Sprinkle] Amiodarone [Cordarone] 200 mg PO DAILY 10/12/17 12/29/17 Bisacodyl [Dulcolax] 5 mg PO BID 10/12/17 12/29/17 Brimonidine 0.2% [Alphagan] 1 drop BOTH EYES TID 10/12/17 12/29/17 Nitroglycerin [Nitrostat] 0.4 mg SL Q5M PRN 10/12/17 12/29/17 OxyCODONE Immed Rel [Roxicodone 20 20 mg PO Q12H PRN 10/12/17 12/29/17 MG] Simethicone [Gas-X] 160 mg PO TID PRN 10/12/17 12/29/17 Tiotropium [place] [Spiriva 2 puff IH DAILY 10/12/17 12/29/17 Respimat] Duloxetine HCl [Cymbalta] 30 mg PO DAILY 11/16/17 12/29/17 Cetirizine HCl [Zyrtec] 10 mg PO DAILY 12/29/17 12/29/17 Dextrose [Glucose] 1 tab PO ONCE PRN 12/29/17 12/29/17 Furosemide [Lasix] 20 mg PO BID 12/29/17 12/29/17 Metoprolol Succinate [Toprol Xl] 50 mg PO DAILY 12/29/17 12/29/17 Sennosides/Docusate Sodium [Colace 2 tab PO BID 12/29/17 12/29/17 2-in-1 Tablet] hydrOXYzine HCl [Hydroxyzine HCl] 25 mg PO Q8H 12/29/17 12/29/17 Previous Rx's Medication Instructions Recorded Pregabalin [Lyrica] 150 mg PO TID #10 capsule 07/08/17 traZODone [TraZODone] 50 mg PO HS PRN #30 tablet 07/08/17 Allergies Allergy/AdvReac Type Severity Reaction Status Date / Time azithromycin Allergy See Verified 11/16/17 13:41 Comments ceftriaxone Allergy See Verified 11/16/17 13:41 Comments morphine Allergy See Verified 11/16/17 13:41 Comments sulfamethoxazole AdvReac See Verified 11/16/17 13:41 [From Bactrim] Comments trimethoprim [From Bactrim] AdvReac See Verified 11/16/17 13:41 Comments Constitutional: Denies: fever Cardiovascular: Denies: chest pain Respiratory: Denies: cough Gastrointestinal: Denies: abdominal pain, nausea, vomiting Past Medical History - Past Medical History Medical history: Reports: atrial fibrillation, cirrhosis, CHF, COPD, coronary artery disease, CVA, DVT, diabetes, GERD, hepatitis, hypertension, myocardial infarction, peripheral artery disease, thyroid disease, syncope Surgical history: Reports: appendectomy, carotid endarterectomy, coronary bypass (CABG), hip replacement, LE stent(s), orthopedic, other, vascular surgery , pacemaker Psychiatric history: Reports: anxiety, PTSD - Social History Smoking Status: Former smoker Smokeless Tobacco Status: No Alcohol use: Reports: none Drug use: Reports: none Physical Exam - General Limitations: no limitations General appearance: alert, in no apparent distress Course Vital Signs Temperature 97.9 F 12/29/17 16:25 Pulse Rate 95 12/29/17 16:25 Respiratory Rate 16 12/29/17 16:25 Blood Pressure 106/55 12/29/17 16:25 O2 Sat by Pulse Oximetry 93 12/29/17 16:25 Temperature 97.9 F 12/29/17 16:25 Pulse Rate 61 12/29/17 19:01 Respiratory Rate 16 12/29/17 19:01 Blood Pressure 86/59 12/29/17 19:01 O2 Sat by Pulse Oximetry 92 12/29/17 19:01 Oxygen Delivery Oxygen Delivery Nasal Cannula Medical Decision Making - Lab Data Lab results reviewed: Yes I reviewed the patient's lab results. Result diagrams: 12/29/17 17:29 12/29/17 17:29 Lab Results 12/29/17 12/29/17 12/29/17 Range/Units 17:29 17:29 17:29 WBC 11.4 H (4.3-11.1) K/mcL RBC 3.93 L (4.19-5.50) M/mcL Hgb 10.7 L (12.9-16.9) g/dL Hct 32.3 L (37.5-50.1) % MCV 82.2 L (83.0-100.0) fL MCH 27.2 L (28.0-33.3) pg MCHC 33.1 (31.6-35.5) g/dL RDW 21.4 H (11.5-14.5) % Plt Count 214 (140-400) K/mcL MPV 9.4 (9.4-12.4) fL Immature Gran % 0.8 (0-4) % Seg Neutrophils % 73.0 % Lymphocytes % 14.5 % Monocytes % 8.0 % Eosinophils % 3.3 % Basophils % 0.4 % Neutrophils # 8.3 (1.6-8.9) K/mcL Lymphocytes # 1.7 (0.6-4.6) K/mcL Monocytes # 0.9 (0.0-1.3) K/mcL Eosinophils # 0.4 (0.0-0.6) K/mcL Basophils # 0.1 (0.0-0.2) K/mcL PT (9.4-12.1) Seconds INR Sodium 135 L (136-145) mEq/L Potassium 5.5 H (3.5-5.1) mEq/L Chloride 100 (98-107) mEq/L Carbon Dioxide 24 (23-29) mEq/L BUN 31 H (8-23) mg/dL Creatinine 1.55 H (0.70-1.30) mg/dL Est GFR ( Amer) 54 L (> 60) Est GFR (Non-Af Amer) 44 L (> 60) BUN/Creatinine Ratio 20 (6-26) Glucose 83 (70-105) mg/dL Calculated Osmolality 286 (280-300) Lactic Acid 2.8 H (0.5-2.2) mmol/L Calcium 9.3 (8.6-10.3) mg/dL Total Bilirubin 0.4 (0.3-1.0) mg/dL AST 23 (13-39) Units/L ALT 16 (7-52) Units/L Alkaline Phosphatase 70 (34-104) Units/L Troponin I < 0.03 (< 0.04) ng/mL Serum Total Protein 6.5 (6.4-8.9) g/dL Albumin 3.7 (3.5-5.7) g/dL Globulin 2.8 (2.4-3.5) g/dL Albumin/Globulin Ratio 1.3 (1.1-2.2) Urine Color (Yellow) Urine Clarity (Clear) Urine pH (5.0-8.0) pH Units Ur Specific [place] (1.010-1.025) Urine Protein (Neg-Trace) mg/dL Urine Glucose (UA) (Normal) mg/dL Urine Ketones (Negative) mg/dL Urine Blood (Negative) Urine Nitrite (Negative) Urine Bilirubin (Negative) Urine Urobilinogen (Normal) mg/dL Ur Leukocyte Esterase (Negative) Urine Microscopic RBC (0-3) per hpf Urine Microscopic WBC (0-3) per hpf Ur Squamous Epith Cells (None-Few) per lpf Urine Bacteria (None-Few) per hpf Hyaline Casts (None-Few) per lpf Ur Culture Indicated? (NO) Blood Type Antibody Screen 12/29/17 12/29/17 12/29/17 Range/Units 17:29 17:29 18:11 WBC (4.3-11.1) K/mcL RBC (4.19-5.50) M/mcL Hgb (12.9-16.9) g/dL Hct (37.5-50.1) % MCV (83.0-100.0) fL MCH (28.0-33.3) pg MCHC (31.6-35.5) g/dL RDW (11.5-14.5) % Plt Count (140-400) K/mcL MPV (9.4-12.4) fL Immature Gran % (0-4) % Seg Neutrophils % % Lymphocytes % % Monocytes % % Eosinophils % % Basophils % % Neutrophils # (1.6-8.9) K/mcL Lymphocytes # (0.6-4.6) K/mcL Monocytes # (0.0-1.3) K/mcL Eosinophils # (0.0-0.6) K/mcL Basophils # (0.0-0.2) K/mcL PT 37.2 H (9.4-12.1) Seconds INR 3.4 Sodium (136-145) mEq/L Potassium (3.5-5.1) mEq/L Chloride (98-107) mEq/L Carbon Dioxide (23-29) mEq/L BUN (8-23) mg/dL Creatinine (0.70-1.30) mg/dL Est GFR ( Amer) (> 60) Est GFR (Non-Af Amer) (> 60) BUN/Creatinine Ratio (6-26) Glucose (70-105) mg/dL Calculated Osmolality (280-300) Lactic Acid (0.5-2.2) mmol/L Calcium (8.6-10.3) mg/dL Total Bilirubin (0.3-1.0) mg/dL AST (13-39) Units/L ALT (7-52) Units/L Alkaline Phosphatase (34-104) Units/L Troponin I (< 0.04) ng/mL Serum Total Protein (6.4-8.9) g/dL Albumin (3.5-5.7) g/dL Globulin (2.4-3.5) g/dL Albumin/Globulin Ratio (1.1-2.2) Urine Color Yellow (Yellow) Urine Clarity Clear (Clear) Urine pH 6.5 (5.0-8.0) pH Units Ur Specific [place] 1.017 (1.010-1.025) Urine Protein Negative (Neg-Trace) mg/dL Urine Glucose (UA) Normal (Normal) mg/dL Urine Ketones Trace H (Negative) mg/dL Urine Blood Negative (Negative) Urine Nitrite Negative (Negative) Urine Bilirubin Negative (Negative) Urine Urobilinogen Normal (Normal) mg/dL Ur Leukocyte Esterase Small H (Negative) Urine Microscopic RBC 0-3 (0-3) per hpf Urine Microscopic WBC 0-3 (0-3) per hpf Ur Squamous Epith Cells Many H (None-Few) per lpf Urine Bacteria Few (None-Few) per hpf Hyaline Casts Few (None-Few) per lpf Ur Culture Indicated? NO. A (NO) Blood Type O POSITIVE Antibody Screen NEGATIVE - Radiology Data Radiology results reviewed: Yes I reviewed the patient's radiology results. Chest X-Ray 12/29/17 16:38 IMPRESSION: Chronic findings in the chest without acute airspace disease identified. Right pleural thickening versus persistent small effusion. D/ / Jose Alanis / Jose Alanis Interpreting Provider: Jose Alanis Head CT 12/29/17 16:38 IMPRESSION: No acute intracranial abnormality. D/ / Irma Cazares MD / Irma Cazares MD Interpreting Provider: Irma Cazares MD Critical Care Time Critical Care Time: No Attestation Statement - Attestation Attestation: I examined this patient and my medical decision-making was reviewed with the Resident Physician. I agree with the documented findings, disposition and treatment plan as described except to the extent set forth below. Patient to the ED with generalized weakness. Patient is normally able to talk and ambulating is unable to get up and walk today. No fever. He has not some chest pain and shortness of breath but not at this time. No vomiting diarrhea. Initially hypotensive per EMS but not here. On examination he is awake alert and appropriate mentating at baseline. Abdomen soft lungs clear. Plan. The patient is a mild elevation in his creatinine and potassium. Guaiac-negative. Unable to ambulate. He is not safe for discharge home. Will be admitted. Patient admitted to medicine.
[2017-12-29] MEDS ORDERED: traZODone 50 MG TABLET PO PRN (19:11)
[2017-12-29] MEDS ORDERED: *HR* Dextrose 50 % in Water (Syg) 50 ML SYRINGE IVP PRN (19:13)
[2017-12-29] MEDS ORDERED: D5% in Water 1,000 ML IVC PRN (19:13)
[2017-12-29] MEDS ORDERED: Dextrose Gel 15 GM/37.5 ML TUBE PO PRN ×2 (19:13)
[2017-12-29] MEDS ORDERED: Naloxone 0.4 MG/ML INJ IVP PRN (19:15)
[2017-12-29] MEDS ORDERED: Acetaminophen 325 MG TABLET PO PRN (19:15)
[2017-12-29] MEDS ORDERED: 0.9 % Sodium Chloride 1,000 ML IVC SCH (19:15)
[2017-12-29] MEDS ORDERED: hydrOXYzine pamoate 25 MG CAPSULE PO SCH (19:15)
--- NOTE | 2017-12-29 19:19 | Internal Med History&Physical ---
Date of Encounter: 12/29/17 Time of Encounter: 19:17 Internal Medicine - H&P: HPI Chief complaint: weakness Admitted From: Emergency Dept Plans for Post Hospital Care: Home History of present illness: Mr. Huddleston is a 72 year old male with known PMH of chronic atrial fibrillation ( On Coumadin), CHF Diastolic, COPD (Not oxygen dependent), coronary artery disease (With history of CABG), CVA, DVT, diabetes, GERD, hypertension, myocardial infarction, PTSD, neuropathy, hypothyroidism and depression who presents with lower ext weakness mainly today. and son at bedside and state that he was fine yesterday but this morning he wasnt himself. He was not eating. He only had a couple of oranges and had no appetite for whatever reason. He had a dry cough and was short of breath on arrival. The patient was here in October for dyspnea on exertion and underwent an echo and a LHC and pacemaker interrogation. echo showed EF 35-40%. LHC showed CABG with 2 of 3 patent bypass grafts. Optimal medical therapy was recommended. This time he comes with the above symptoms. The ED mentioned chest pain but the patient and family denied that to me. No diaphoresis. EMS found BP in the 80s and was in the 80s systolically upon arrival. Labs showed mild leukocytosis at 11/4. K of 5.5 and creatinine of 1.55. He was given 1 L bolus with blood pressure coming up to 105/68. CT head was negative. CXR with nothing acute. Trop <.03. EKG with no new changes. Denies fever/chills/nausea/vomiting/blurry vision/headache /abdominal pain/urinary symptoms/neurological symptoms. Past Med Surg Social Fam HX - Past Medical History Medical history: atrial fibrillation, cirrhosis, CHF, COPD, coronary artery disease, CVA, DVT, diabetes, GERD, hepatitis, hypertension, myocardial infarction, peripheral artery disease, thyroid disease, syncope Psychiatric history: anxiety, PTSD - Past Surgical History Surgical History: appendectomy, carotid endarterectomy, coronary bypass (CABG), hip replacement, LE stent(s), orthopedic, other, vascular surgery, pacemaker - Social History Smoking Status: Former smoker Smokeless Tobacco Status: No Alcohol use: none Drug use: none - Family History Mother Living Status: Hx Family Cardiac Disorders: Yes Father Living Status: Hx Family Cardiac Disorders: Yes Hx Family Cancer: Yes Internal Medicine - H&P: Meds GlipiZIDE [Glucotrol] 7.5 mg PO DAILY 04/13/15 [History] Atorvastatin [Lipitor] 10 mg PO HS 10/16/15 [History] Albuterol Sulfate [Albuterol Inhaler] 2 puff IH QID PRN 06/01/17 [History] Cholecalciferol (Vitamin D3) [Vitamin D3] 2,000 unit PO DAILY 06/01/17 [History] Warfarin [Coumadin] 2 mg PO TUTHSA 06/01/17 [History] Warfarin [Coumadin] 4 mg PO SUMOWEFR 06/01/17 [History] amLODIPine [Norvasc] 5 mg PO DAILY 06/01/17 [History] Polyethylene Glycol 3350 [MiraLAX] 17 gm PO BID PRN 06/03/17 [History] Travoprost [Travatan Z] 1 drop BOTH EYES HS 06/03/17 [History] Clopidogrel [Plavix] 75 mg PO DAILY 06/19/17 [History] Ferrous Sulfate [Iron] 325 mg PO BID 06/19/17 [History] Levothyroxine [Synthroid] 50 mcg PO 0630 06/19/17 [History] MOM Conc [MILK OF MAGNESIA conc] 30 ml PO HS PRN 06/19/17 [History] Sennosides/Docusate Sodium [Senna-Docusate Sodium Tablet] 2 tab PO BID 06/19/17 [History] Losartan Potassium [Cozaar] 100 mg PO DAILY 06/24/17 [History] Metformin HCl [Glucophage] 1,000 mg PO BID 06/24/17 [History] Potassium Chloride [Klor-Con Sprinkle] 10 meq PO DAILY 06/24/17 [History] Pregabalin [Lyrica] 150 mg PO TID #10 capsule 07/08/17 [Rx] traZODone [TraZODone] 50 mg PO HS PRN #30 tablet 07/08/17 [Rx] Amiodarone [Cordarone] 200 mg PO DAILY 10/12/17 [History] Bisacodyl [Dulcolax] 5 mg PO BID 10/12/17 [History] Brimonidine 0.2% [Alphagan] 1 drop BOTH EYES TID 10/12/17 [History] Nitroglycerin [Nitrostat] 0.4 mg SL Q5M PRN 10/12/17 [History] OxyCODONE Immed Rel [Roxicodone 20 MG] 20 mg PO Q12H PRN 10/12/17 [History] Simethicone [Gas-X] 160 mg PO TID PRN 10/12/17 [History] Tiotropium [place] [Spiriva Respimat] 2 puff IH DAILY 10/12/17 [History] Duloxetine HCl [Cymbalta] 30 mg PO DAILY 11/16/17 [History] Cetirizine HCl [Zyrtec] 10 mg PO DAILY 12/29/17 [History] Dextrose [Glucose] 1 tab PO ONCE PRN 12/29/17 [History] Furosemide [Lasix] 20 mg PO BID 12/29/17 [History] Metoprolol Succinate [Toprol Xl] 50 mg PO DAILY 12/29/17 [History] Sennosides/Docusate Sodium [Colace 2-in-1 Tablet] 2 tab PO BID 12/29/17 [History ] hydrOXYzine HCl [Hydroxyzine HCl] 25 mg PO Q8H 12/29/17 [History] 3 Allergy/AdvReac Type Severity Reaction Status Date / Time azithromycin Allergy See Verified 11/16/17 13:41 Comments ceftriaxone Allergy See Verified 11/16/17 13:41 Comments morphine Allergy See Verified 11/16/17 13:41 Comments sulfamethoxazole AdvReac See Verified 11/16/17 13:41 [From Bactrim] Comments trimethoprim [From Bactrim] AdvReac See Verified 11/16/17 13:41 Comments All Systems PM: A 10-system review of systems was performed and is negative for pertinent findings except as documented above in the HPI. Review of systems: All systems reviewed are negative except as mentioned above - Constitutional Vitals: Temp Pulse Resp BP Pulse Ox 97.9 F 61 16 86/59 92 12/29/17 16:25 12/29/17 19:01 12/29/17 19:01 12/29/17 19:01 12/29/17 19:01 Exam: GEN: NAD HEENT: AT, NC, No cyanosis, oral mucosa is moist, No JVD Lymphatics: No lymphadenoapthy Eyes: Extrocular muscles intact, anicteric CVS:RRR. S1, S2, No m/r/g RESP: CTAB ABD: Soft, NT, ND, +BS. abdominal hernia noted EXT: Trace edema, No rashes, 2+ DP NEURO: Nonfocal, CN II-XII intact, No focal motor or sensory deficits Psych: Cooperative, Not anxious or depressed Internal Med - H&P Results - Labs CBC & Chem 7: 12/29/17 17:29 12/29/17 17:29 Labs: Short CBC 12/29/17 Range/Units 17:29 WBC 11.4 H (4.3-11.1) K/mcL Hgb 10.7 L (12.9-16.9) g/dL Hct 32.3 L (37.5-50.1) % Plt Count 214 (140-400) K/mcL Neutrophils # 8.3 (1.6-8.9) K/mcL BMP 12/29/17 17:29 Sodium 135 L Potassium 5.5 H Chloride 100 Carbon Dioxide 24 BUN 31 H Creatinine 1.55 H Glucose 83 Calcium 9.3 Cardiac Enzymes 12/29/17 Range/Units 17:29 Troponin I < 0.03 (< 0.04) ng/mL Liver Function 12/29/17 Range/Units 17:29 Total Bilirubin 0.4 (0.3-1.0) mg/dL AST 23 (13-39) Units/L ALT 16 (7-52) Units/L Alkaline Phosphatase 70 (34-104) Units/L Albumin 3.7 (3.5-5.7) g/dL Urine 12/29/17 Range/Units 18:11 Urine Color Yellow (Yellow) Urine Clarity Clear (Clear) Urine pH 6.5 (5.0-8.0) pH Units Ur Specific [place] 1.017 (1.010-1.025) Urine Protein Negative (Neg-Trace) mg/dL Urine Glucose (UA) Normal (Normal) mg/dL - Impressions ITS Impressions Chest X-Ray 12/29/17 16:38 IMPRESSION: Chronic findings in the chest without acute airspace disease identified. Right pleural thickening versus persistent small effusion. D/ / Jose Alanis / Jose Alanis Interpreting Provider: Jose Alanis Head CT 12/29/17 16:38 IMPRESSION: No acute intracranial abnormality. D/ / Irma Cazares MD / Irma Cazares MD Interpreting Provider: Irma Cazares MD - Assessment and plan (1) Weakness Current Visit: Yes Status: Acute Assessment and plan: Likely from dehydration based on labs. Patient possibly has some bronchitis symptoms causing this. I will hydrate gently with NS at 100cc/hr. Monitor respiratory status given. PT/OT. CT head negative. (2) DANIEL (acute kidney injury) Current Visit: No Status: Resolved Assessment and plan: Given 1 L NS. Will c/w with NS at 100 cc/hr. avoid nephrotoxins. (3) Lactic acidosis Current Visit: Yes Status: Acute Assessment and plan: Will trend after IV hydration. (4) Hyperkalemia Current Visit: Yes Status: Acute Assessment and plan: Likely from DANIEL. Hold home K supplements. will hydrate. Labs in am. (5) Hypothyroidism Current Visit: Yes Status: Acute Assessment and plan: c/w home dose levothyroxine. Check TSH Qualifiers: Hypothyroidism type: unspecified Qualified Code(s): E03.9 - Hypothyroidism , unspecified (6) Atrial fibrillation Current Visit: No Status: Chronic Assessment and plan: c/w amiodarone. Hold BB. c/w coumadin per pharmacy Qualifiers: Atrial fibrillation type: paroxysmal Qualified Code(s): I48.0 - Paroxysmal atrial fibrillation (7) CHF (congestive heart failure) Current Visit: No Status: Chronic Assessment and plan: Not in exacerbation. c/w cardiac meds but hold antihypertensives. Have to be careful with IVF given his history of CHF with EF of 35-40% Qualifiers: Heart failure type: unspecified Heart failure chronicity: acute on chronic Qualified Code(s): I50.9 - Heart failure, unspecified (8) COPD (chronic obstructive pulmonary disease) Current Visit: No Status: Chronic Assessment and plan: c/w home inhalers Qualifiers: COPD type: chronic bronchitis Chronic bronchitis type: simple Qualified Code(s): J41.0 - Simple chronic bronchitis (9) Diabetes Current Visit: No Status: Chronic Assessment and plan: Insulin sliding scale. Accucheks. Qualifiers: Diabetes mellitus type: type 2 Diabetes mellitus halfway insulin use: without long distance operator use Diabetes mellitus complication status: with hyperglycemia Qualified Code(s): E11.65 - Type 2 diabetes mellitus with hyperglycemia (10) Hypertension Current Visit: No Status: Chronic Assessment and plan: Hold antihypertensives as his BP is low Qualifiers: Hypertension type: essential hypertension Qualified Code(s): I10 - Essential (primary) hypertension (11) Hypotension Current Visit: No Status: Resolved Qualifiers: Hypotension type: unspecified hypotension type Qualified Code(s): I95.9 - Hypotension, unspecified (12) DVT prophylaxis Current Visit: Yes Status: Acute Assessment and plan: Coumadin - Time Spent With Patient Total time spent is greater than 50% in coordination of care (as documented) at patient's floor/unit and/or counseling patient:
[2017-12-29] MEDS ORDERED: Pregabalin 75 MG CAPSULE PO SCH (21:00)
[2017-12-29] MEDS ORDERED: Insulin LISPRO 300 UNITS/3 ML VIAL SQ SCH (21:00)
[2017-12-29] MEDS ORDERED: (Travoprost [Travatan Z] 1 DROP) OP SCH (21:00)
[2017-12-29] MEDS: 0.9 % Sodium Chloride 1,000 ML IVC SCH (23:00)
[2017-12-29] MEDS: hydrOXYzine pamoate 25 MG CAPSULE PO SCH (23:32)
[2017-12-29] MEDS: Sennosides/Docusate Sodium TABLET PO SCH (23:32)
[2017-12-30 06:01] LABS: Basophils % 0.5 %; Eosinophils # 0.5 K/mcL (0.0-0.6); Eosinophils % 5.8 %; Hematocrit 29.3 % (37.5-50.1); Hemoglobin 9.3 g/dL (12.9-16.9); Immature Granulocytes % 0.6 % (0-4); Lymphocytes # 1.3 K/mcL (0.6-4.6); Mean Corpuscular HGB Conc 31.7 g/dL (31.6-35.5); Mean Corpuscular Hemoglobin 26.1 pg (28.0-33.3); Mean Corpuscular Volume 82.1 fL (83.0-100.0); Mean Platelet Volume 10.3 fL (9.4-12.4); Monocytes # 0.8 K/mcL (0.0-1.3); Monocytes % 10.1 %; Neutrophils # 5.5 K/mcL (1.6-8.9); Platelet Count 178 K/mcL (140-400); Red Blood Count 3.57 M/mcL (4.19-5.50); Red Cell Distribution Width 21.2 % (11.5-14.5)
[2017-12-30 06:02] LABS: INR 3.6; Prothrombin Time 39.9 Seconds (9.4-12.1)
[2017-12-30 06:17] LABS: BUN/Creatinine Ratio 22 (6-26); Blood Urea Nitrogen 28 mg/dL (8-23); Calcium 8.5 mg/dL (8.6-10.3); Carbon Dioxide 24 mEq/L (23-29); Chloride 102 mEq/L (98-107); Glucose 148 mg/dL (70-105); Magnesium 1.7 mg/dL (1.6-2.6); Osmolality,Calculated 288 (280-300); Potassium 4.3 mEq/L (3.5-5.1); Sodium 135 mEq/L (136-145); eGFR For African Americans > 60 (> 60); eGFR For Non-African Americans 56 (> 60)
[2017-12-30] MEDS: hydrOXYzine pamoate 25 MG CAPSULE PO SCH (06:22)
[2017-12-30] MEDS: Insulin LISPRO 300 UNITS/3 ML VIAL SQ SCH ×2 (07:30→12:15)
[2017-12-30] MEDS ORDERED: Pregabalin 75 MG CAPSULE PO SCH (09:00)
[2017-12-30] MEDS ORDERED: Cholecalciferol (D-3) 1,000 UNIT TABLET PO SCH (09:00)
[2017-12-30] MEDS ORDERED: Loratadine 10 MG TABLET PO SCH (09:00)
[2017-12-30] MEDS ORDERED: *HR* Amiodarone 200 MG TABLET PO SCH (09:00)
[2017-12-30] MEDS: 0.9 % Sodium Chloride 1,000 ML IVC SCH (09:16)
[2017-12-30] MEDS: Sennosides/Docusate Sodium TABLET PO SCH (09:18)
[2017-12-30] MEDS ORDERED: Tiotropium 18 MCG inhalation IH SCH (10:00)
[2017-12-30 10:51] VITALS: BP 114/65
--- NOTE | 2017-12-30 12:27 | Electrocardiograph Report ---
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
--- NOTE | 2017-12-30 13:48 | Discharge Summary ---
- NOTES TO OUTPATIENT PROVIDER Notes to Outpatient Provider: Follow-up with primary care physician within the next 7 days. Stop taking amlodipine, decrease dose of losartan down to 25 mg daily. Avoid dehydration. Hold warfarin today, check INR within the next 2 days. May resume warfarin 3 mg daily if INR is less than 3. Do not take Lasix if dehydrated Orders not resulted at time of discharge: Pending orders 12/31/17 04:00 PT/INR [Prothrombin Time INR] [[facility]] AM 04001/01/18 04:00 PT/INR [Prothrombin Time INR] [[facility]] AM 04001/02/18 04:00 PT/INR [Prothrombin Time INR] [[facility]] AM 04001/03/18 04:00 PT/INR [Prothrombin Time INR] [[facility]] AM 040 Date of Encounter: 12/30/17 Time of Encounter: 13:46 - Discharge Diagnosis (1) DANIEL (acute kidney injury) Priority: Primary Status: Resolved Assessment and Plan: Acute renal failure secondary to dehydration exacerbated by amlodipine and losartan (2) Weakness Priority: Primary Status: Acute Assessment and Plan: Lactic acidosis. Lactic acid was 2.8 and decreased down to 1 with IV fluids (3) COPD (chronic obstructive pulmonary disease) Priority: Secondary Status: Chronic Qualifiers: COPD type: chronic bronchitis Chronic bronchitis type: simple Qualified Code(s): J41.0 - Simple chronic bronchitis (4) Atrial fibrillation Priority: Secondary Status: Chronic Qualifiers: Atrial fibrillation type: paroxysmal Qualified Code(s): I48.0 - Paroxysmal atrial fibrillation (5) Diabetes Priority: Secondary Status: Chronic Qualifiers: Diabetes mellitus type: type 2 Diabetes mellitus intermediate insulin use: without intermediate use Diabetes mellitus complication status: with hyperglycemia Qualified Code(s): E11.65 - Type 2 diabetes mellitus with hyperglycemia (6) Hypotension Priority: Primary Status: Resolved Qualifiers: Hypotension type: unspecified hypotension type Qualified Code(s): I95.9 - Hypotension, unspecified (7) CHF (congestive heart failure) Priority: Secondary Status: Chronic Qualifiers: Heart failure type: systolic Heart failure chronicity: acute on chronic Qualified Code(s): I50.23 - Acute on chronic systolic (congestive) heart failure (8) Hypertension Priority: Secondary Status: Chronic Qualifiers: Hypertension type: essential hypertension Qualified Code(s): I10 - Essential (primary) hypertension (9) Hypothyroidism Priority: Secondary Status: Acute Qualifiers: Hypothyroidism type: unspecified Qualified Code(s): E03.9 - Hypothyroidism , unspecified (10) Hyperkalemia Priority: Secondary Status: Acute Assessment and Plan: Secondary to dehydration and renal failure (11) Lactic acidosis Priority: Secondary Status: Acute Assessment and Plan: Lactic acid 2.8, resolved Hospital course: Mr. Huddleston is a 72 year old male with known PMH of chronic atrial fibrillation ( On Coumadin), CHF systolic, COPD (Not oxygen dependent), coronary artery disease (With history of CABG), CVA, DVT, diabetes, GERD, hypertension, myocardial infarction, PTSD, neuropathy, hypothyroidism and depression who presented with lower ext weakness . and son at bedside and state that he was fine but this morning he wasnt himself. He was not eating. He only had a couple of oranges and had no appetite for whatever reason. He had a dry cough and was short of breath on arrival. The patient was here in October for dyspnea on exertion and underwent an echo and a LHC and pacemaker interrogation. echo showed EF 35-40%. LHC showed CABG with 2 of 3 patent bypass grafts. The ED mentioned chest pain but the patient and family denied that. No diaphoresis. EMS found BP in the 80s and was in the 80s systolically upon arrival. Labs showed mild leukocytosis at 11/4. K of 5.5 and creatinine of 1.55. He was given 1 L bolus with blood pressure proved. CT head was negative. CXR with nothing acute. Trop <.03. EKG with no new changes. Denies fever/ chills/nausea/vomiting/blurry vision/headache/abdominal pain/urinary symptoms/ neurological symptoms. The patient was dehydrated, losartan and amlodipine were held along with Lasix. He is feeling much better today, no signs of infection were evidence. Requested to be discharged home. Potassium normalized - Time Spent with Patient Total time spent providing and/or coordinating discharge services: Greater than 30 minutes (40 min) - Discharge Medications Prescriptions: Losartan [Cozaar] 25 mg PO DAILY #30 tablet Warfarin [Coumadin] 3 mg PO 1800 #30 tablet Home Medications: GlipiZIDE [Glucotrol] 7.5 mg PO DAILY 08/14/15 [History] Atorvastatin [Lipitor] 10 mg PO HS 10/16/15 [History] Albuterol Sulfate [Albuterol Inhaler] 2 puff IH QID PRN 06/01/17 [History] Cholecalciferol (Vitamin D3) [Vitamin D3] 2,000 unit PO DAILY 06/01/17 [History] Polyethylene Glycol 3350 [MiraLAX] 17 gm PO BID PRN 06/03/17 [History] Travoprost [Travatan Z] 1 drop BOTH EYES HS 06/03/17 [History] Clopidogrel [Plavix] 75 mg PO DAILY 06/19/17 [History] Ferrous Sulfate [Iron] 325 mg PO BID 06/19/17 [History] Levothyroxine [Synthroid] 50 mcg PO 0630 06/19/17 [History] MOM Conc [MILK OF MAGNESIA conc] 30 ml PO HS PRN 06/19/17 [History] Sennosides/Docusate Sodium [Senna-Docusate Sodium Tablet] 2 tab PO BID 06/19/17 [History] Metformin HCl [Glucophage] 1,000 mg PO BID 06/24/17 [History] Potassium Chloride [Klor-Con Sprinkle] 10 meq PO DAILY 06/24/17 [History] Pregabalin [Lyrica] 150 mg PO TID #10 capsule 07/08/17 [Rx] traZODone [TraZODone] 50 mg PO HS PRN #30 tablet 07/08/17 [Rx] Amiodarone [Cordarone] 200 mg PO DAILY 10/12/17 [History] Bisacodyl [Dulcolax] 5 mg PO BID 10/12/17 [History] Brimonidine 0.2% [Alphagan] 1 drop BOTH EYES TID 10/12/17 [History] Nitroglycerin [Nitrostat] 0.4 mg SL Q5M PRN 10/12/17 [History] OxyCODONE Immed Rel [Roxicodone 20 MG] 20 mg PO Q12H PRN 10/12/17 [History] Simethicone [Gas-X] 160 mg PO TID PRN 10/12/17 [History] Tiotropium Mcgrady [Spiriva Respimat] 2 puff IH DAILY 10/12/17 [History] Duloxetine HCl [Cymbalta] 30 mg PO DAILY 11/16/17 [History] Cetirizine HCl [Zyrtec] 10 mg PO DAILY 12/29/17 [History] Dextrose [Glucose] 1 tab PO ONCE PRN 12/29/17 [History] Furosemide [Lasix] 20 mg PO BID 12/29/17 [History] Metoprolol Succinate [Toprol Xl] 50 mg PO DAILY 12/29/17 [History] Sennosides/Docusate Sodium [Colace 2-in-1 Tablet] 2 tab PO BID 12/29/17 [History ] hydrOXYzine HCl [Hydroxyzine HCl] 25 mg PO Q8H 12/29/17 [History] Losartan [Cozaar] 25 mg PO DAILY #30 tablet 12/30/17 [Rx] Warfarin [Coumadin] 3 mg PO 1800 #30 tablet 12/30/17 [Rx] Allergies/Adverse Reactions: 3 Allergy/AdvReac Type Severity Reaction Status Date / Time azithromycin Allergy See Verified 11/16/17 13:41 Comments ceftriaxone Allergy See Verified 11/16/17 13:41 Comments morphine Allergy See Verified 11/16/17 13:41 Comments sulfamethoxazole AdvReac See Verified 11/16/17 13:41 [From Bactrim] Comments trimethoprim [From Bactrim] AdvReac See Verified 11/16/17 13:41 Comments Date of admission: 12/29/17 19:36 [facility] care physician: [facility] - Constitutional Vitals: Temp Pulse Resp BP Pulse Ox 97.4 F L 61 18 114/65 94 12/30/17 10:49 12/30/17 10:49 12/30/17 10:49 12/30/17 10:49 12/30/17 10:49 General appearance: Present: A&O X 3 - Head Head exam: Present: atraumatic, normocephalic - Eye Eye exam: Present: PERRL, conjuntiva pink, sclera anicteric Pupils: Present: PERRL - Neck Neck exam general surgery: Present: supple, trachea midline. Absent: lymphadenopathy - Respiratory Respiratory exam: Present: CTAB. Absent: accessory muscle use, rales, rhonchi, wheezes - Cardiovascular Cardiovascular exam: Present: RRR, +S1, +S2. Absent: diastolic murmur, gallop, rubs, systolic murmur - GI/Abdominal GI/Abdominal exam: Present: normal bowel sounds, soft, no peritoneal signs. Absent: distended, tenderness - Extremities Exam Extremities exam: Present: warm, radial pulses palpable and symmetrical. Absent : calf tenderness, cyanotic, pedal edema - Neurological Exam Neurological exam: Present: CN II-XII intact, oriented X3, no focal deficits. Absent: pronater drift, facial droop, speech deficit - Skin Skin exam: Present: dry, intact - Patient Status Disposition: Home, Self-Care Condition: Good Overall status at discharge: patient is back to baseline - Discharge Instructions Follow Up With: [facility] [Primary Care Provider[facility] - - Diet and Activity Diet: low fat, low cholesterol
[2017-12-30] MEDS ORDERED: Warfarin perPT PO PRN (18:00)
[2017-12-30] MEDS ORDERED: Latanoprost 2.5 ML BOTTLE BOTH EYES SCH (21:00)
== END 2017-12-30 15:02 | disposition home or self-care (01) | DRG 682 ==
LOC: 2ANU 16:24 → EMEROO 16:24 → 2ANU 20:08
PROVIDERS: ADMIT Internal Medicine; ATTEND Internal Medicine